=== PATIENT | female | born 1960 | race Two or more races ===

== ENCOUNTER → 2020-05-11 09:54 | Outpatient (BNVA) | payer OTHER, SELFPAY | PROVIDERS: PCP Internal Medicine; Visit Provider Physician Assistant | DX: M65.331 Trigger finger, right middle finger (principal) | CPT/HCPCS: 20550; 20600; 99213; J1020 ==

== ENCOUNTER 2020-05-24 16:02 | Outpatient (REF) | payer OTHER, SELFPAY | END 2020-05-24 16:03 | disposition home or self-care (01) | LOC: HO.LNP 16:02 | PROVIDERS: Visit Provider Nurse Practitioner Family | DX: M54.9 Dorsalgia, unspecified (principal) | CPT/HCPCS: 87086 ==

== ENCOUNTER → 2020-07-12 09:11 | Outpatient (BNVA) | payer OTHER, SELFPAY | PROVIDERS: PCP Internal Medicine; Referring Provider Internal Medicine; Visit Provider Nurse Practitioner Gerontology | DX: Z76.89 Persons encountering health services in other specified circumstances (principal) ==

== ENCOUNTER 2020-08-23 10:30 | Outpatient (REF) | payer OTHER, SELFPAY ==
--- NOTE | 2020-08-23 10:34 | MM_ITS ---
EXAMINATION: BONE DENSITOMETRY CLINICAL INDICATION: Asymptomatic menopausal state. COMPARISON: Previous BD dated 11/07/2017 and baseline BD dated 09/06/2011. TECHNIQUE: Using a [employer] DXA System (software version: 13.1) manufactured by [employer], dual-energy x-ray absorptiometry was performed of the lumbar spine and left hip. The images are of good technical quality. Summary results are attached. FINDINGS: AP SPINE L1-L4: Current: BMD 1.141 g/cm2, Z-score -0.2, T-score -0.3, normal, 1.5% increase from previous, 1.1% increase from baseline (<5% change is not significant). Prior: BMD 1.124 g/cm2. Baseline: BMD 1.129 g/cm2. LEFT FEMUR, NECK: Current: BMD 0.888 g/cm2, Z-score -0.5, T-score -1.1, osteopenia. Prior: BMD 0.980 g/cm2. Baseline: BMD 1.047 g/cm2. LEFT FEMUR, TOTAL: Current: BMD 1.148 g/cm2, Z-score 1.3, T-score 1.1, normal, 2.8% decrease from previous, 6.0% decrease from baseline (<5% change is not significant). Prior: BMD 1.181 g/cm2. Baseline: BMD 1.221 g/cm2. IDENTIFIED RISK FACTORS: Low calcium intake, hysterectomy, bilateral oophorectomy. Early menopause, secondary osteoporosis. HISTORY OF FRACTURE: None listed. MEDICATIONS: Calcium supplements or multivitamin, vitamin D. MM/XR DEXA axial skeleton IMPRESSION: 1. DIAGNOSIS: Osteopenia based on the lowest T-score value of -1.1 in the femoral neck applying World Health Organization criteria. 2. 10-YEAR FRACTURE RISK PREDICTION, FRAX: Major osteoporotic fracture (clinical spine, forearm, hip or shoulder) 3.5%. Hip fracture 0.2%. 3. Treatment Recommendations: NOF guidelines recommend consideration for treatment in postmenopausal women and men age 50 and older presenting with the following: -A hip or vertebral (clinical or morphometric) fracture. -T-score less than or equal to -2.5 at the femoral neck or spine after appropriate evaluation to exclude secondary causes. -Low bone mass at the hip or spine and a 10-year fracture probability by FRAX of greater than or equal to 3% for hip fracture or greater than or equal to 20% for major osteoporotic fracture based on the [place] adapted WHO algorithm. 4. Other Recommendations: All treatment decisions require clinical judgment and consideration of individual patient factors, including patient preferences, comorbidities, previous drug use, risk factors not captured in the FRAX model (e.g. frailty, falls, vitamin D deficiency, increased bone turnover, interval significant decline in bone density) and possible under or overestimation of fracture risk by FRAX. Additional medical evaluation for secondary cause of low bone mineral density may be appropriate. FUTURE SCAN RECOMMENDATION: People with diagnosed cases of osteoporosis or at high risk for fracture should have regular bone mineral density tests. For patients eligible for Medicare, routine testing is allowed once every 2 years. The testing frequency can be increased to one year for patients who have rapidly progressing disease, those who are receiving or discontinuing medical therapy to restore bone mass, or have additional risk factors.
== END 2020-08-23 10:31 | disposition home or self-care (01) ==
LOC: HO.MAMMO 10:30
PROVIDERS: Visit Provider Internal Medicine
DX: Z78.0 Asymptomatic menopausal state (principal)
CPT/HCPCS: 77080

== ENCOUNTER 2020-09-08 08:26 | Outpatient (REF) | payer OTHER, SELFPAY ==
--- NOTE | 2020-09-08 08:49 | XR_ITS ---
EXAMINATION: XR FOOT, LEFT CLINICAL INFORMATION: Pain in the left foot COMPARISON: None TECHNIQUE: AP, lateral, and oblique views of the left foot. FINDINGS: There is no fracture or dislocation. Alignment is anatomic. Joint spaces are maintained. The soft tissues are unremarkable. There is moderate hypertrophic spurring at the plantar aponeurosis of the calcaneus. Small Achilles heel spur. XR/XR foot LT min 3V IMPRESSION: Heel spurs. Otherwise unremarkable appearance of the left foot.
[2020-09-08 08:54] LABS: MANUAL DIFF FLAG NO
[2020-09-08 08:59] LABS: Basophils Percent Auto 0.3 % (0-2); Eosinophils Absolute Auto 0.1 X10*3/uL (0.0-0.4); Eosinophils Percent Auto 0.7 % (0-4); Hematocrit 42.1 % (37-47); Hemoglobin 13.8 g/dl (12.0-16.0); Imm Gran Abs Auto 0.02 X10*3/uL (0.00-0.03); Imm Gran Pct Auto 0.3 % (0.0-0.4); Lymphocytes Absolute Auto 3.2 X10*3/uL (1.2-4.9); Lymphocytes Percent Auto 45.9 % (20-40); Mean Corpuscular HGB Conc 32.8 g/dl (31.0-35.0); Mean Corpuscular Hemoglobin 29.5 pg (27.0-33.0); Mean Platelet Volume 9.2 fL (9.4-12.3); Monocytes Absolute Auto 0.4 X10*3/uL (0.1-1.2); Monocytes Percent Auto 5.8 % (2-11); Neutrophils Absolute Auto 3.2 X10*3/uL (2.0-8.3); Platelet Count 231 X10*3/uL (160-400); Red Blood Count 4.68 X10*6/uL (4.20-5.50); Red Cell Distribution Width 13.7 % (11.0-16.0); White Blood Count 6.9 X10*3/uL (4.8-10.8)
[2020-09-08 09:21] LABS: Alanine Aminotransferase 28 U/L (0-31); Albumin Level 4.4 g/dL (3.5-5.0); Alkaline Phosphatase 102 U/L (39-117); Anion Gap 13 (12-20); Aspartate Amino Transferase 30 U/L (5-31); Bilirubin Total 0.3 mg/dL (0.0-1.0); Blood Urea Nitrogen 16 mg/dL (9-16); Calcium 9.5 mg/dL (8.4-10.2); Carbon Dioxide 28 mmol/L (22-29); Chloride 101 mmol/L (96-108); Cholesterol 258 mg/dL; Estimated Glomerular Filt Rate > 60; Glucose Fasting 144 mg/dL (60-99); HDL Cholesterol 58 mg/dL; LDL Cholesterol Calculated 175 mg/dl; Potassium 4.2 mmol/L (3.3-5.1); Sodium 138 mmol/L (135-145); Triglycerides 127 mg/dL
[2020-09-08 09:43] LABS: TSH reflex Free T4 3.56 uIU/mL (0.32-4.0)
[2020-09-08 09:58] LABS: Folate 19.3 ng/mL (> or = 4.0); Vitamin B12 386 pg/mL (200-900)
[2020-09-13 18:57] LABS: Vitamin D 25-OH, D2 35 ng/mL; Vitamin D 25-OH, D3 7 ng/mL; Vitamin D 25-OH, Total 42 ng/mL (30-100)
== END 2020-09-08 08:27 | disposition home or self-care (01) ==
LOC: HO.LAB 08:26
PROVIDERS: PCP Internal Medicine; Visit Provider Internal Medicine
DX: E11.29 Type 2 diabetes mellitus with other diabetic kidney complication (principal); E78.5 Hyperlipidemia, unspecified; E03.9 Hypothyroidism, unspecified; R53.83 Other fatigue; E55.9 Vitamin D deficiency, unspecified; M79.672 Pain in left foot
CPT/HCPCS: 36415; 73630; 80053; 80061; 82306; 82607; 82746; 84443; 85025

== ENCOUNTER → 2020-10-10 13:49 | Outpatient (BNVA) | payer OTHER, SELFPAY | PROVIDERS: PCP Internal Medicine; Visit Provider Nurse Practitioner Gerontology | DX: E11.29 Type 2 diabetes mellitus with other diabetic kidney complication (principal); E66.01 Morbid (severe) obesity due to excess calories; Z68.38 Body mass index [BMI] 38.0-38.9, adult; E78.5 Hyperlipidemia, unspecified; E55.9 Vitamin D deficiency, unspecified; I10 Essential (primary) hypertension; R80.9 Proteinuria, unspecified; Z79.84 Long term (current) use of oral hypoglycemic drugs; Z71.3 Dietary counseling and surveillance | CPT/HCPCS: 82947; 99212 ==

== ENCOUNTER 2020-10-17 12:01 | Outpatient (REF) | payer OTHER, SELFPAY ==
--- NOTE | ~2020-10-17 | XR_ITS ---
EXAMINATION: BILATERAL FOOT X-RAY CLINICAL INFORMATION: Pain COMPARISON: Previous left foot x-ray September 2020 TECHNIQUE: 3 views of each foot FINDINGS: Bone alignment is normal. No fracture or dislocation is seen. The joint spaces are normal. There are large calcaneal osteophytes bilaterally. Soft tissues are otherwise unremarkable. XR/XR foot RT 2V IMPRESSION: Large bilateral calcaneal osteophytes otherwise unremarkable exam.
--- NOTE | ~2020-10-17 | XR_ITS ---
EXAMINATION: BILATERAL FOOT X-RAY CLINICAL INFORMATION: Pain COMPARISON: Previous left foot x-ray September 2020 TECHNIQUE: 3 views of each foot FINDINGS: Bone alignment is normal. No fracture or dislocation is seen. The joint spaces are normal. There are large calcaneal osteophytes bilaterally. Soft tissues are otherwise unremarkable. XR/XR foot LT 2V IMPRESSION: Large bilateral calcaneal osteophytes otherwise unremarkable exam.
== END 2020-10-17 12:02 | disposition home or self-care (01) ==
LOC: HO.XRAY 12:01
PROVIDERS: PCP Internal Medicine; Visit Provider Internal Medicine
DX: M79.672 Pain in left foot (principal); M79.671 Pain in right foot
CPT/HCPCS: 73620

== ENCOUNTER 2020-10-24 09:32 | Outpatient (REF) | payer OTHER, SELFPAY | END 2020-10-24 09:33 | disposition home or self-care (01) | LOC: HO.LAB 09:32 | PROVIDERS: Visit Provider Internal Medicine | DX: Z20.822 Contact with and (suspected) exposure to COVID-19 (principal) | CPT/HCPCS: 36415; C9803; U0003; U0005 ==

== ENCOUNTER 2020-10-26 10:59 | Outpatient (REF) | payer OTHER, SELFPAY | END 2020-10-26 11:00 | disposition home or self-care (01) | LOC: HO.LAB 10:59 | PROVIDERS: Visit Provider Internal Medicine | DX: Z20.822 Contact with and (suspected) exposure to COVID-19 (principal) | CPT/HCPCS: 36415; C9803; U0003; U0005 ==

== ENCOUNTER → 2020-10-27 09:28 | Outpatient (BNVA) | payer OTHER, SELFPAY | PROVIDERS: PCP Internal Medicine; Visit Provider Urology | DX: N20.0 Calculus of kidney (principal) | CPT/HCPCS: 81002; 99212 ==

== ENCOUNTER → 2020-11-09 12:45 | Outpatient (BNVA) | payer OTHER, SELFPAY | PROVIDERS: PCP Internal Medicine; Visit Provider Orthopaedic Surgery | DX: M65.331 Trigger finger, right middle finger (principal); M79.641 Pain in right hand | CPT/HCPCS: 99202 ==

== ENCOUNTER 2020-12-13 07:46 | Outpatient (REF) | payer OTHER, SELFPAY ==
--- NOTE | ~2020-12-13 | US_ITS ---
EXAMINATION: US ABDOMEN COMPLETE CLINICAL INFORMATION: Fatty liver. Liver fibrosis. COMPARISON: CT abdomen and pelvis 12/26/2019. Ultrasound abdomen 11/16/2019. Renal ultrasound 11/09/2019. KUB 09/01/2018. TECHNIQUE: Real-time imaging of the abdominal viscera. FINDINGS: PANCREAS: Normal. ABDOMINAL AORTA: The proximal, mid, and distal segments are normal in caliber. INFERIOR VENA CAVA: Visualized portions are normal. LIVER: The liver is normal in size. The liver contour is normal. There is increased liver echogenicity. No focal hepatic lesion. There is no intrahepatic biliary duct dilatation seen. GALLBLADDER: Surgically absent. COMMON BILE DUCT: Normal in caliber measuring 1.0 cm in diameter. RIGHT KIDNEY: There are multiple anechoic cysts seen. The largest upper pole cyst measures 3.7 x 3.7 x 3.8 cm. Some of the cysts have echogenic calcifications and are likely complex cyst. There is an echogenic stone with shadowing in the midpole measuring 1.1 x 0.7 x 1.1 cm. No hydronephrosis. The kidney measures 12.2 cm in maximum dimension. LEFT KIDNEY: There is a large calcification/stone in upper pole measuring 2.6 x 1.7 x 2.2 cm and midpole measuring 1.1 x 0.7 x 1.1 cm. No hydronephrosis. The kidney measures 12.8 cm in maximum dimension. SPLEEN: Normal. The spleen measures 10.2 cm in maximum dimension. FREE FLUID: None. US/US abdomen complete IMPRESSION: Bilateral echogenic stones without hydronephrosis. There are bilateral renal cysts. No hydronephrosis seen. Hepatic steatosis without focal lesion.
[2020-12-13 09:12] LABS: MANUAL DIFF FLAG NO
[2020-12-13 09:19] LABS: Basophils Percent Auto 0.3 % (0-2); Eosinophils Percent Auto 0.6 % (0-4); Hematocrit 41.7 % (37-47); Hemoglobin 13.5 g/dl (12.0-16.0); Imm Gran Abs Auto 0.02 X10*3/uL (0.00-0.03); Imm Gran Pct Auto 0.3 % (0.0-0.4); Lymphocytes Absolute Auto 2.9 X10*3/uL (1.2-4.9); Lymphocytes Percent Auto 42.1 % (20-40); Mean Corpuscular HGB Conc 32.4 g/dl (31.0-35.0); Mean Corpuscular Hemoglobin 29.1 pg (27.0-33.0); Mean Corpuscular Volume 89.9 fL (80-98); Mean Platelet Volume 9.8 fL (9.4-12.3); Monocytes Absolute Auto 0.4 X10*3/uL (0.1-1.2); Neutrophils Absolute Auto 3.4 X10*3/uL (2.0-8.3); Neutrophils Percent Auto 50.7 % (45-73); Platelet Count 223 X10*3/uL (160-400); Red Blood Count 4.64 X10*6/uL (4.20-5.50); Red Cell Distribution Width 13.7 % (11.0-16.0); White Blood Count 6.8 X10*3/uL (4.8-10.8)
[2020-12-13 09:26] LABS: Estimated Average Glucose 183 mg/dL
[2020-12-13 09:36] LABS: Alanine Aminotransferase 23 U/L (0-31); Albumin Level 4.3 g/dL (3.5-5.0); Alkaline Phosphatase 102 U/L (39-117); Anion Gap 13 (12-20); Aspartate Amino Transferase 22 U/L (5-31); Bilirubin Total 0.4 mg/dL (0.0-1.0); Blood Urea Nitrogen 14 mg/dL (9-16); Calcium 10.1 mg/dL (8.4-10.2); Carbon Dioxide 29 mmol/L (22-29); Chloride 100 mmol/L (96-108); Cholesterol 199 mg/dL; Estimated Glomerular Filt Rate > 60; Glucose Fasting 160 mg/dL (60-99); HDL Cholesterol 61 mg/dL; Iron 58 mcg/dL (30-160); LDL Cholesterol Calculated 122 mg/dl; Percent Iron Saturation 14 % (15-50); Sodium 138 mmol/L (135-145); Total Iron Binding Capacity 406 mcg/dL (228-428); Total Protein 7.5 g/dL (6.5-8.0); Triglycerides 80 mg/dL; Unsaturated Iron Binding 348 ug/dL
[2020-12-13 10:12] LABS: Vitamin B12 423 pg/mL (200-900)
== END 2020-12-13 07:47 | disposition home or self-care (01) ==
LOC: HO.US 07:46
PROVIDERS: Nurse Practitioner Gerontology; Absent Provider Internal Medicine; PCP Internal Medicine; Visit Provider Internal Medicine
DX: K76.0 Fatty (change of) liver, not elsewhere classified (principal); K74.00 Hepatic fibrosis, unspecified; E78.5 Hyperlipidemia, unspecified; E11.29 Type 2 diabetes mellitus with other diabetic kidney complication; D50.9 Iron deficiency anemia, unspecified
CPT/HCPCS: 36415; 76700; 80053; 80061; 82607; 82746; 83036; 83540; 85025

== ENCOUNTER → 2020-12-27 09:34 | Outpatient (BNVA) | payer OTHER, SELFPAY | PROVIDERS: PCP Internal Medicine; Referring Provider Internal Medicine; Visit Provider Surgery | DX: L72.0 Epidermal cyst (principal) | CPT/HCPCS: 99212 ==

== ENCOUNTER → 2021-01-11 09:31 | Outpatient (BNVA) | payer OTHER, SELFPAY | PROVIDERS: PCP Internal Medicine; Visit Provider Nurse Practitioner Gerontology | DX: E11.65 Type 2 diabetes mellitus with hyperglycemia (principal); E11.29 Type 2 diabetes mellitus with other diabetic kidney complication; E78.5 Hyperlipidemia, unspecified; E66.01 Morbid (severe) obesity due to excess calories; E55.9 Vitamin D deficiency, unspecified; R80.9 Proteinuria, unspecified; I10 Essential (primary) hypertension; Z68.38 Body mass index [BMI] 38.0-38.9, adult | CPT/HCPCS: 82947; 99212 ==

== ENCOUNTER 2021-03-29 08:11 | Outpatient (REF) | payer OTHER, SELFPAY | END 2021-03-29 08:12 | disposition home or self-care (01) | LOC: HO.LAB 08:11 | PROVIDERS: PCP Internal Medicine; Visit Provider Internal Medicine | DX: Z20.822 Contact with and (suspected) exposure to COVID-19 (principal) | CPT/HCPCS: 36415; 87635; C9803; U0003; U0005 ==

== ENCOUNTER 2021-03-31 08:23 | Outpatient (REF) | payer OTHER, SELFPAY ==
--- NOTE | ~2021-03-31 | MM_ITS ---
EXAMINATION: MM SCREENING DIGITAL BREAST TOMOSYNTHESIS, BILATERAL CLINICAL INFORMATION: Screening. Asymptomatic. The lifetime risk of breast cancer based on the Tyrer-Cuzick Model is 6%. COMPARISON: Mammography: 08/17/2019, 08/15/2018, 07/27/2017 TECHNIQUE: Digital breast tomosynthesis is performed in both the craniocaudal and mediolateral oblique views along with computer-aided detection (CAD). Synthesized 2D images are generated from the tomosynthesis. Additional left MLO view is provided. FINDINGS: There are scattered areas of fibroglandular density (ACR BI-RADS breast composition Category b). Parenchymal pattern is similar to prior studies. There is no developing density or interval mass or architectural abnormality. The axilla and skin contours are unremarkable. There are scattered benign coarse calcifications again seen in each breast as well as some vascular calcification. The left breast has increased grouped relatively coarse calcifications 6-10 in number posterior 9:00 position. Patient will be recalled for additional imaging with magnification views. MM/MM tomosynthesis screening BI IMPRESSION: 1. Left: Increased grouped relatively coarse calcifications posterior 9:00 position. 2. Right: No mammographic evidence of malignancy. ASSESSMENT: BI-RADS 0: Incomplete - Need Additional Imaging Evaluation RECOMMENDATION: 1. Additional views of the left breast (magnification CC, magnification LM). 2. Radiology department staff will contact the patient for additional imaging. This patient's information was entered into a reminder system with a target due date for their next mammogram.
== END 2021-03-31 08:24 | disposition home or self-care (01) ==
LOC: HO.MAMMO 08:23
PROVIDERS: PCP Internal Medicine; Visit Provider Internal Medicine
DX: Z12.31 Encounter for screening mammogram for malignant neoplasm of breast (principal)
CPT/HCPCS: 77063; 77067

== ENCOUNTER 2021-04-17 10:43 | Outpatient (REF) | payer OTHER, SELFPAY ==
--- NOTE | ~2021-04-17 | US_ITS ---
EXAMINATION: US RETROPERITONEAL LIMITED (RENAL ONLY) CLINICAL INFORMATION: Renal calculus. COMPARISON: Ultrasound abdomen complete dated 12/13/2020 and 11/16/2019. CT abdomen and pelvis without contrast dated 12/26/2019. KUB dated 09/01/2018 and 06/11/2007. TECHNIQUE: Real-time imaging of the kidneys. FINDINGS: RIGHT KIDNEY: 12.5 x 6.5 x 7.3 cm (SAG x AP x TRV). The kidney is normal in size and contour. There are echogenic renal pyramids suggestive of medullary nephrocalcinosis. There are multiple right renal stones. The largest measures 1.2 cm in the midpole. There are multiple right renal cysts. The largest measures 3 cm in the upper pole. No hydronephrosis. LEFT KIDNEY: 12.1 x 6.7 x 5.9 cm (SAG x AP x TRV). The kidney is normal in size and contour. There are echogenic renal pyramids suggestive of medullary nephrocalcinosis. There are multiple left renal stones. The largest measures 2.5 cm in the upper pole. There are multiple left renal cysts. The largest measures 8 cm in the lower pole. No hydronephrosis. US/US renal BI IMPRESSION: Medullary nephrocalcinosis and bilateral renal stones. Bilateral renal cysts.
--- NOTE | ~2021-04-17 | MM_ITS ---
EXAMINATION: MM DIAGNOSTIC DIGITAL MAMMOGRAPHY, LEFT CLINICAL INFORMATION: Recall from screening for increased grouped relatively coarse calcifications 9:00 position left breast. COMPARISON: Mammography: 03/31/2021, 08/17/2019, 08/15/2018 TECHNIQUE: Digital mammography is performed in the following views: Magnification CC, magnification LM. FINDINGS: There are scattered areas of fibroglandular density (ACR BI-RADS breast composition Category b). The increased grouped calcifications 9:00 position are coarse and benign, likely fibroadenomatous change. They are likely similar to the degenerating fibroadenoma more central left breast. No pleomorphic or suspicious calcifications. There are some other fine grouped calcifications lower inner left breast similar to prior imaging. No significant changes. Results are discussed with the patient at time of visit, using an feather separator. MM/MM added views LT IMPRESSION: The calcifications for follow-up imaging are coarse and benign in appearance, likely fibroadenomatous change. ASSESSMENT: BI-RADS 2: Benign RECOMMENDATION: Routine annual mammography screening. This patient's information was entered into a reminder system with a target due date for their next mammogram.
== END 2021-04-17 10:44 | disposition home or self-care (01) ==
LOC: HO.MAMMO 10:43
PROVIDERS: PCP Internal Medicine; Visit Provider Internal Medicine
DX: R92.1 Mammographic calcification found on diagnostic imaging of breast (principal)
CPT/HCPCS: 76775; 77065

== ENCOUNTER → 2021-05-01 11:10 | Outpatient (BNVA) | payer OTHER, SELFPAY | PROVIDERS: PCP Internal Medicine | DX: N20.0 Calculus of kidney (principal); N28.1 Cyst of kidney, acquired | CPT/HCPCS: 99212 ==

== ENCOUNTER 2021-06-05 09:54 | Outpatient (REF) | payer OTHER, SELFPAY ==
[2021-06-05 10:22] LABS: MANUAL DIFF FLAG NO
[2021-06-05 10:48] LABS: Basophils Percent Auto 0.3 % (0-2); Eosinophils Percent Auto 0.6 % (0-4); Hematocrit 40.9 % (37.0-47.0); Hemoglobin 13.3 g/dl (12.0-16.0); Imm Gran Abs Auto 0.02 X10*3/uL (0.00-0.03); Imm Gran Pct Auto 0.3 % (0.0-0.4); Lymphocytes Percent Auto 44.8 % (20-40); Mean Corpuscular HGB Conc 32.5 g/dl (31.0-35.0); Mean Corpuscular Hemoglobin 28.5 pg (27.0-33.0); Mean Corpuscular Volume 87.6 fL (80.0-98.0); Mean Platelet Volume 9.6 fL (9.4-12.3); Monocytes Absolute Auto 0.4 X10*3/uL (0.1-1.2); Monocytes Percent Auto 5.8 % (2-11); Neutrophils Absolute Auto 3.18 x10*3/uL (2.0-8.3); Neutrophils Percent Auto 48.2 % (45-73); Platelet Count 212 X10*3/uL (160-400); Red Blood Count 4.67 X10*6/uL (4.20-5.50); Red Cell Distribution Width 13.5 % (11.0-16.0); White Blood Count 6.6 X10*3/uL (4.8-10.8)
[2021-06-05 10:59] LABS: Estimated Average Glucose 177 mg/dL; Hemoglobin A1c % 7.8 %
[2021-06-05 11:20] LABS: Anion Gap 12 (12-20); Blood Urea Nitrogen 12 mg/dL (9-16); Calcium 9.5 mg/dL (8.4-10.2); Carbon Dioxide 27 mmol/L (22-29); Chloride 104 mmol/L (96-108); Estimated Glomerular Filt Rate > 60; Iron 68 mcg/dL (30-160); Percent Iron Saturation 16 % (15-50); Potassium 4.3 mmol/L (3.3-5.1); Sodium 139 mmol/L (135-145); Total Iron Binding Capacity 419 mcg/dL (228-428); Unsaturated Iron Binding 351 ug/dL
[2021-06-05 11:42] LABS: Ferritin 90 ng/mL (10-250); Vitamin D 25-OH Total 30.2 ng/mL (>30)
[2021-06-05 12:08] LABS: Appearance Urine HAZY; Color Urine YELLOW; Glucose Urine UA NEG (NEG); Leukocyte Esterase Urine 1+ (NEG); Nitrite Urine NEG (NEG); Urine Blood TRACE (NEG); Urine Ketones NEG (NEG); Urine Protein 2+ MG/DL (NEG-TRACE)
[2021-06-05 12:22] LABS: Mucus Urine 1+ /LPF; Squamous Epithelial Cell Urine 1+ /LPF
[2021-06-05 12:23] LABS: Bacteria Urine TRACE /LPF; Calcium Oxalate Crystals Urine 1+ /LPF
[2021-06-05 16:02] LABS: Protein/Creatinine Ratio, Ur 0.48 (<0.2); Total Protein Urine Random 66 mg/dL (<12)
[2021-06-07 12:11] LABS: Calcium (PTHI) 9.4 mg/dL (8.6-10.4); PTHI 54 pg/mL (14-64)
== END 2021-06-05 09:55 | disposition home or self-care (01) ==
LOC: HO.LAB 09:54
PROVIDERS: PCP Internal Medicine; Visit Provider Internal Medicine Nephrology
DX: E11.22 Type 2 diabetes mellitus with diabetic chronic kidney disease (principal); N18.2 Chronic kidney disease, stage 2 (mild)
CPT/HCPCS: 36415; 80051; 81001; 82306; 82310; 82565; 82728; 83036; 83540; 83970; 84156; 84520; 85025

== ENCOUNTER 2021-06-28 11:00 | Outpatient (RCR) | payer OTHER, SELFPAY ==
--- NOTE | 2021-06-02 13:14 | MHC.PT.EP ---
[facility] [place] Office [place] Office [place] Office [address] Fanny Mcfadden [address] [phone] F: [phone] F: [phone] F: [phone] F: [phone] Physical Therapy Plan of Care Date of Evaluation: Date of Surgery: N/A Diagnosis: myalgia Assessment: pt's signs and symptoms consistent w/ lumbar radiculopathy. pt presents to physical therapy with pain, decreased range of motion, decreased strength, impaired functional mobility, impaired postural awareness, and gait deviations. pt is a good candidate for skilled PT due to age, potential remediation of impairments, typical disease/condition progression and prognosis, comorbidities, and motivation. pt would benefit from tailored strengthening and stretching exercise program, functional training, gait training, postural re-training, neuromuscular re-education, modalities as needed for pain, equipment safety demonstration. Frequency and Duration: The patient will be seen 2x/wk for 4 wks Short Term Goals: pt will be I w/ HEP to promote self-management of condition. pt will demo proper sitting posture w/ lumbar roll to promote neutral spine w/ seated ADLs. pt will improve lumbar flexion by 25% to improve ability to pickling solution maker objects from floor. Engineer Intern Goals: pt will report a statistically significant improvement in self-reported outcome measure, LEFI, to promote return to PLOF. pt will improve L LE hip flexion and knee extension strength to 5/5 to improve ease in ascending stairs to access bedroom/bathroom. pt will report <2/10 low back and radicular symptoms w/ standing for >20 minutes to promote pain-limited pain w/ standing ADLs. Treatment Plan: Modalities to reduce pain, spasms and effusion. Manual therapy to restore motion and function. Therapeutic exercise to improve strength and flexibility. Neuromuscular re-education for posture and balance. Therapeutic activities to return to functional activities of daily living. Electronically signed by: Stacie Flores PT, DPT Please sign and return to therapist. Thank you for your referral.
--- NOTE | 2021-07-21 12:24 | MHC.PT.DC ---
[facility] [place] Office [place] Office [place] Office [address] Fanny Mcfadden 140 [facility] [phone] F: [phone] F: [phone] F: [phone] F: [phone] Physical Therapy Discharge Report Diagnosis: myalgia Date of Surgery: N/A Date of Evaluation: 06/02/21 Date of Discharge: 07/21/21 Treatments to Date: 7 Cancellations to Date: 1 No Shows to Date: 1 Discharge Status: Independent with HEP Recommend MD Follow-up Discharge Summary: The patient had minimal change in her symptoms and postural awareness. She continues to report moderate to severe pain levels in multiple joints of her body. She would benefit from a follow-up with her primary care provider to determine alternative options for pain management. The patient is discharged from this physical therapy plan of care to her home exercise program. Electronically signed by: Stacie Flores PT, DPT Please sign and return to therapist. Thank you for your referral.
== END 2021-07-21 12:24 | disposition home or self-care (01) ==
LOC: HO.PT 11:00
PROVIDERS: PCP Nurse Practitioner Family; Visit Provider Nurse Practitioner Family
DX: M79.18 Myalgia, other site (principal)
CPT/HCPCS: 97110; 97112; 97140; 97150; 97162

== ENCOUNTER 2021-07-25 13:10 | Outpatient (REF) | payer OTHER, SELFPAY ==
--- NOTE | ~2021-07-25 | CT_ITS ---
EXAMINATION: CT ABDOMEN AND PELVIS WITHOUT CONTRAST CLINICAL INFORMATION: Kidney stones COMPARISON: Previous CT of the abdomen and pelvis most recent December 2019 and renal ultrasound most recent April 2021 TECHNIQUE: Multidetector volumetric imaging was performed from the superior aspect of the liver through the pubic symphysis. Sagittal and coronal reformatted images were obtained on the technologist's workstation. This CT examination was performed using dose optimization techniques as appropriate, variously including the following: *Automated exposure control *Adjustment of mA and/or kV according to patient size (this includes techniques or standardized protocols for targeted exams where dose is matched to indication/reason for exam; i.e. extremities or head) *Use of iterative reconstruction technique DLP: 756 mGy-cm FINDINGS: LUNG BASES: The visualized lung bases are unremarkable. LIVER, GALLBLADDER, AND BILIARY TREE: The liver is normal in size, shape, and attenuation. No focal hepatic lesion or biliary ductal dilatation is present. The gallbladder has been removed. PANCREAS: Unremarkable. SPLEEN: Unremarkable. ADRENAL GLANDS: Unremarkable. KIDNEYS AND URETERS: There is high attenuation seen centrally in the collecting systems questionable for medullary nephrocalcinosis. There are several tiny right renal stones. There is a 2.5 cm cyst in the upper pole of the right kidney. There may be smaller right renal peripelvic cysts. No right hydronephrosis, ureteral dilatation or ureteral stone is seen. There is a stone in the left upper pole calyx. There is an adjacent cystic structure with peripheral calcification. This measures approximately 1.6 x 2 cm. Appearance is questionable for a cyst with wall calcification versus calyceal diverticulum. This is stable from previous exams. There are 2 small 1 to 2 mm left mid and lower pole stones. There are several left renal cysts. Largest cyst measures 7 cm and has area of wall calcification. No left hydronephrosis, ureteral dilatation or ureteral stone is seen. BLADDER: Not optimally distended but appears unremarkable. GASTROINTESTINAL TRACT: There is diverticulosis of the colon. Small and large bowel is otherwise unremarkable. ABDOMINAL WALL: No significant hernia is appreciated. LYMPH NODES: Normal. VASCULAR: Unremarkable. PELVIC VISCERA: The uterus has been removed. No pelvic mass is seen. OSSEOUS STRUCTURES: Unremarkable. CT/CT abdomen pelvis wo con IMPRESSION: Medullary nephrocalcinosis. Bilateral renal stones. Bilateral renal cysts. There is no appreciable change from most recent CT December 2019. Fleischner guidelines were followed.
== END 2021-07-25 13:11 | disposition home or self-care (01) ==
LOC: HO.CT 13:10
PROVIDERS: PCP Internal Medicine; Visit Provider Urology
DX: N20.0 Calculus of kidney (principal); N28.1 Cyst of kidney, acquired
CPT/HCPCS: 74176

== ENCOUNTER → 2021-08-01 11:02 | Outpatient (BNVA) | payer OTHER, SELFPAY | PROVIDERS: PCP Internal Medicine | DX: N20.0 Calculus of kidney (principal) | CPT/HCPCS: 99212 ==

== ENCOUNTER 2021-08-11 08:06 | Outpatient (REF) | payer OTHER, SELFPAY ==
--- NOTE | ~2021-08-11 | XR_ITS ---
EXAMINATION: RIGHT FOOT CLINICAL INFORMATION: Pain COMPARISON: None TECHNIQUE: 3 views right foot, 3 views right hand and 3 views left shoulder, right hand and left shoulder FINDINGS: Right foot: There is no visible fracture, dislocation or dislocation. No periosteal thickening no soft tissue abnormality seen. There is a moderate size calcaneal heel and retrocalcaneal enthesophytes. Ankle mortise and subtalar joints are normal. Right hand: There is no visible fracture, dislocation or bony in the body. Especially no abnormality seen along the phalangeal charley. There is mild loss of PIP and DIP joint space with no periarticular spurring or bony erosive changes. Left shoulder: There is no visible acute fracture, dislocation or subluxation seen. The glenohumeral joint space is normal. The soft tissues are normal. XR/XR shoulder LT min 2V IMPRESSION: Unremarkable left shoulder exam. Unremarkable right hand exam. Unremarkable right foot exam except for moderate size calcaneal heel and retrocalcaneal enthesophytes.
--- NOTE | ~2021-08-11 | XR_ITS ---
EXAMINATION: RIGHT FOOT CLINICAL INFORMATION: Pain COMPARISON: None TECHNIQUE: 3 views right foot, 3 views right hand and 3 views left shoulder, right hand and left shoulder FINDINGS: Right foot: There is no visible fracture, dislocation or dislocation. No periosteal thickening no soft tissue abnormality seen. There is a moderate size calcaneal heel and retrocalcaneal enthesophytes. Ankle mortise and subtalar joints are normal. Right hand: There is no visible fracture, dislocation or bony in the body. Especially no abnormality seen along the phalangeal charley. There is mild loss of PIP and DIP joint space with no periarticular spurring or bony erosive changes. Left shoulder: There is no visible acute fracture, dislocation or subluxation seen. The glenohumeral joint space is normal. The soft tissues are normal. XR/XR hand RT 2V IMPRESSION: Unremarkable left shoulder exam. Unremarkable right hand exam. Unremarkable right foot exam except for moderate size calcaneal heel and retrocalcaneal enthesophytes.
--- NOTE | ~2021-08-11 | XR_ITS ---
EXAMINATION: RIGHT FOOT CLINICAL INFORMATION: Pain COMPARISON: None TECHNIQUE: 3 views right foot, 3 views right hand and 3 views left shoulder, right hand and left shoulder FINDINGS: Right foot: There is no visible fracture, dislocation or dislocation. No periosteal thickening no soft tissue abnormality seen. There is a moderate size calcaneal heel and retrocalcaneal enthesophytes. Ankle mortise and subtalar joints are normal. Right hand: There is no visible fracture, dislocation or bony in the body. Especially no abnormality seen along the phalangeal charley. There is mild loss of PIP and DIP joint space with no periarticular spurring or bony erosive changes. Left shoulder: There is no visible acute fracture, dislocation or subluxation seen. The glenohumeral joint space is normal. The soft tissues are normal. XR/XR foot RT 2V IMPRESSION: Unremarkable left shoulder exam. Unremarkable right hand exam. Unremarkable right foot exam except for moderate size calcaneal heel and retrocalcaneal enthesophytes.
[2021-08-11 08:17] LABS: MANUAL DIFF FLAG NO
[2021-08-11 08:57] LABS: Basophils Percent Auto 0.4 % (0-2); Eosinophils Absolute Auto 0.1 X10*3/uL (0.0-0.4); Eosinophils Percent Auto 0.8 % (0-4); Hematocrit 40.9 % (37.0-47.0); Hemoglobin 13.6 g/dl (12.0-16.0); Imm Gran Abs Auto 0.02 X10*3/uL (0.00-0.03); Imm Gran Pct Auto 0.3 % (0.0-0.4); Lymphocytes Absolute Auto 2.7 X10*3/uL (1.2-4.9); Lymphocytes Percent Auto 38.3 % (20-40); Mean Corpuscular HGB Conc 33.3 g/dl (31.0-35.0); Mean Corpuscular Hemoglobin 29.3 pg (27.0-33.0); Mean Corpuscular Volume 88.1 fL (80.0-98.0); Mean Platelet Volume 9.8 fL (9.4-12.3); Monocytes Absolute Auto 0.4 X10*3/uL (0.1-1.2); Monocytes Percent Auto 5.5 % (2-11); Neutrophils Absolute Auto 3.9 x10*3/uL (2.0-8.3); Neutrophils Percent Auto 54.7 % (45-73); Platelet Count 225 X10*3/uL (160-400); Red Blood Count 4.64 X10*6/uL (4.20-5.50); Red Cell Distribution Width 14.2 % (11.0-16.0); White Blood Count 7.1 X10*3/uL (4.8-10.8)
[2021-08-11 09:11] LABS: Alanine Aminotransferase 50 U/L (0-31); Albumin Level 4.4 g/dL (3.5-5.0); Alkaline Phosphatase 95 U/L (39-117); Anion Gap 13 (12-20); Aspartate Amino Transferase 53 U/L (5-31); Bilirubin Total 0.3 mg/dL (0.0-1.0); Blood Urea Nitrogen 13 mg/dL (9-16); Calcium 9.9 mg/dL (8.4-10.2); Carbon Dioxide 29 mmol/L (22-29); Chloride 101 mmol/L (96-108); Cholesterol 218 mg/dL; Estimated Glomerular Filt Rate > 60; Glucose Fasting 169 mg/dL (60-99); HDL Cholesterol 50 mg/dL; Iron 51 mcg/dL (30-160); LDL Cholesterol Calculated 137 mg/dl; Percent Iron Saturation 13 % (15-50); Sodium 139 mmol/L (135-145); Total Iron Binding Capacity 397 mcg/dL (228-428); Total Protein 7.6 g/dL (6.5-8.0); Triglycerides 158 mg/dL; Unsaturated Iron Binding 346 ug/dL
[2021-08-11 11:14] LABS: Creatinine Urine 213.31 mg/dL
[2021-08-11 11:26] LABS: Microalbum/Creatinine Ratio Ur 267.2 ug/mg cr
[2021-08-16 13:01] LABS: Vitamin D 25-OH, D2 12 ng/mL; Vitamin D 25-OH, D3 20 ng/mL; Vitamin D 25-OH, Total 32 ng/mL (30-100)
== END 2021-08-11 08:07 | disposition home or self-care (01) ==
LOC: HO.LAB 08:06
PROVIDERS: PCP Internal Medicine; Visit Provider Internal Medicine
DX: D50.9 Iron deficiency anemia, unspecified (principal); E78.5 Hyperlipidemia, unspecified; E11.65 Type 2 diabetes mellitus with hyperglycemia; E55.9 Vitamin D deficiency, unspecified; M79.671 Pain in right foot; M79.641 Pain in right hand; M25.512 Pain in left shoulder
CPT/HCPCS: 36415; 73030; 73120; 73620; 80053; 80061; 82043; 82306; 83540; 85025

== ENCOUNTER → 2021-08-15 11:07 | Outpatient (BNVA) | payer OTHER, SELFPAY | PROVIDERS: PCP Internal Medicine; Visit Provider Nurse Practitioner Gerontology ==

== ENCOUNTER → 2021-09-26 10:40 | Outpatient (BNVA) | payer OTHER, SELFPAY | PROVIDERS: PCP Internal Medicine; Visit Provider Physician Assistant | DX: M79.641 Pain in right hand (principal) | CPT/HCPCS: 99212 ==

== ENCOUNTER 2021-11-01 08:49 | Outpatient (REF) | payer OTHER, SELFPAY ==
--- NOTE | ~2021-11-01 | XR_ITS ---
EXAMINATION: XR FOOT, RIGHT CLINICAL INFORMATION: Pain in right foot COMPARISON: None TECHNIQUE: AP, lateral, and oblique views of the right foot. FINDINGS: There is a moderate size calcaneal heel and retrocalcaneal enthesophytes. There is no fracture or dislocation or subluxation involving the second digit. There is mild soft tissue swelling along the plantar surface. The PIP and DIP joints are normal. Rest of the right foot is unremarkable. XR/XR foot RT 2V IMPRESSION: Unremarkable right second digit. Moderate size calcaneal heel and retrocalcaneal enthesophytes.
== END 2021-11-01 08:50 | disposition home or self-care (01) ==
LOC: HO.XRAY 08:49
PROVIDERS: PCP Internal Medicine; Visit Provider Nurse Practitioner Family
DX: M79.671 Pain in right foot (principal); M65.331 Trigger finger, right middle finger; M25.50 Pain in unspecified joint; Z79.899 Other long term (current) drug therapy
CPT/HCPCS: 73620; 99212

== ENCOUNTER 2021-11-02 09:26 | Outpatient (REF) | payer OTHER, SELFPAY ==
[2021-11-02 10:48] LABS: MANUAL DIFF FLAG NO
[2021-11-02 11:35] LABS: Basophils Percent Auto 0.3 % (0-2); Eosinophils Percent Auto 0.6 % (0-4); Hematocrit 42.5 % (37.0-47.0); Hemoglobin 13.8 g/dl (12.0-16.0); Imm Gran Abs Auto 0.01 X10*3/uL (0.00-0.03); Imm Gran Pct Auto 0.2 % (0.0-0.4); Lymphocytes Absolute Auto 2.6 X10*3/uL (1.2-4.9); Lymphocytes Percent Auto 39.1 % (20-40); Mean Corpuscular HGB Conc 32.5 g/dl (31.0-35.0); Mean Corpuscular Hemoglobin 28.6 pg (27.0-33.0); Mean Corpuscular Volume 88.2 fL (80.0-98.0); Monocytes Absolute Auto 0.4 X10*3/uL (0.1-1.2); Monocytes Percent Auto 5.4 % (2-11); Neutrophils Absolute Auto 3.6 x10*3/uL (2.0-8.3); Neutrophils Percent Auto 54.4 % (45-73); Platelet Count 230 X10*3/uL (160-400); Red Blood Count 4.82 X10*6/uL (4.20-5.50); Red Cell Distribution Width 13.6 % (11.0-16.0); White Blood Count 6.5 X10*3/uL (4.8-10.8)
[2021-11-02 11:47] LABS: Alanine Aminotransferase 43 U/L (0-31); Albumin Level 4.6 g/dL (3.5-5.0); Alkaline Phosphatase 93 U/L (39-117); Anion Gap 14 (12-20); Aspartate Amino Transferase 42 U/L (5-31); Bilirubin Total 0.3 mg/dL (0.0-1.0); Blood Urea Nitrogen 14 mg/dL (9-16); Carbon Dioxide 25 mmol/L (22-29); Chloride 103 mmol/L (96-108); Cholesterol 189 mg/dL; Estimated Glomerular Filt Rate > 60; Glucose Random 155 mg/dL (60-115); HDL Cholesterol 51 mg/dL; Iron 48 mcg/dL (30-160); LDL Cholesterol Calculated 115 mg/dl; Percent Iron Saturation 11 % (15-50); Potassium 4.4 mmol/L (3.3-5.1); Sodium 138 mmol/L (135-145); Total Iron Binding Capacity 423 mcg/dL (228-428); Total Protein 8.1 g/dL (6.5-8.0); Triglycerides 119 mg/dL; Unsaturated Iron Binding 375 ug/dL
[2021-11-02 11:55] LABS: HBc Num1 0.22 S/CO (0.00-0.79); HBsAGNum1 0.18 S/CO (0.00-0.99); Hepatitis B Core Antibody Nonreactive (Nonreactive); Hepatitis B Surface Antigen Negative (Negative)
[2021-11-02 12:08] LABS: HBS Num1 1.46 mIU/mL (0-7.99); ~Hepatitis B Surface Antibody NONREACTIVE (Nonreactive); ~Hepatitis C Antibody Nonreactive (Nonreactive)
[2021-11-02 12:41] LABS: Creatinine Urine 159.67 mg/dL; Microalbum/Creatinine Ratio Ur 256.1 ug/mg cr
[2021-11-03 08:30] LABS: Hepatitis A Antibody IgM 0.69 Index (0-0.79); ~Hepatitis A Antibody IgM Nonreactive (Nonreactive)
[2021-11-07 14:01] LABS: Vitamin D 25-OH, D2 17 ng/mL; Vitamin D 25-OH, D3 19 ng/mL; Vitamin D 25-OH, Total 36 ng/mL (30-100)
== END 2021-11-02 09:27 | disposition home or self-care (01) ==
LOC: HO.LAB 09:26
PROVIDERS: Absent Provider Internal Medicine; PCP Internal Medicine; Visit Provider Nurse Practitioner Family
DX: E78.5 Hyperlipidemia, unspecified (principal); E55.9 Vitamin D deficiency, unspecified; D64.9 Anemia, unspecified; E11.9 Type 2 diabetes mellitus without complications; M25.50 Pain in unspecified joint
CPT/HCPCS: 36415; 80053; 80061; 82043; 82306; 83540; 85025; 86704; 86706; 86709; 86803; 87340

== ENCOUNTER 2021-11-02 10:00 | Outpatient (RCR) | payer OTHER, SELFPAY ==
--- NOTE | 2021-11-30 16:53 | MHC.OT.DC ---
[address] [phone] F: [phone] Occupational Therapy Discharge Note Provider: Vidal Chavez Diagnosis: Right hand pain Date of Surgery: Date of Evaluation: 10/05/21 Date of Discharge: 11/30/21 Treatments to Date: 8 Cancellations to Date: 1 No Shows to Date: Discharge Status: Recommend MD Follow-up Discharge Summary: Improvement in dorsal MF MP and PIPj pain,, Con't pain at area of A1 tray, reports some improvement after treatment today No digit locking Continue c/o numbness at MF and RF Electronically Signed By: Amber Grossman OT CHT CLT Reviewed/agree with student documentation: N/A Therapist: Please Sign and return to therapist, thank you for your referral.
== END 2021-11-30 16:54 | disposition home or self-care (01) ==
LOC: HO.OT 10:00
PROVIDERS: PCP Internal Medicine; Visit Provider Physician Assistant
DX: M79.641 Pain in right hand (principal)
CPT/HCPCS: 29130; 97035; 97110; 97166; 97760

== ENCOUNTER → 2021-11-09 08:46 | Outpatient (BNVA) | payer OTHER, SELFPAY | PROVIDERS: PCP Internal Medicine; Visit Provider Internal Medicine Rheumatology | DX: M65.331 Trigger finger, right middle finger (principal) | CPT/HCPCS: 20550 ×2 ==

== ENCOUNTER → 2021-11-15 11:08 | Outpatient (BNVA) | payer OTHER, SELFPAY | PROVIDERS: PCP Internal Medicine; Visit Provider Nurse Practitioner Gerontology | DX: E11.65 Type 2 diabetes mellitus with hyperglycemia (principal); E11.29 Type 2 diabetes mellitus with other diabetic kidney complication; R80.9 Proteinuria, unspecified; I10 Essential (primary) hypertension; E78.5 Hyperlipidemia, unspecified; E66.01 Morbid (severe) obesity due to excess calories; Z68.38 Body mass index [BMI] 38.0-38.9, adult; E55.9 Vitamin D deficiency, unspecified; Z79.84 Long term (current) use of oral hypoglycemic drugs; Z79.899 Other long term (current) drug therapy | CPT/HCPCS: 82947; 83036; 99212 ==

== ENCOUNTER 2021-11-21 12:13 | Outpatient (REF) | payer OTHER, SELFPAY ==
--- NOTE | ~2021-11-21 | XR_ITS ---
EXAMINATION: XR ABDOMEN KUB CLINICAL INDICATION: Abdominal COMPARISON: CT dated 07/25/2021. TECHNIQUE: 2 views of the abdomen. XR/XR KUB FINDINGS/IMPRESSION: The bowel gas pattern is normal with no evidence of ileus or obstruction. Again seen is a coarsely calcified spheroid structure in the upper pole of left kidney overlying a smaller stone within the left upper pole is better seen on the prior CT. No additional urinary calculi. The bones are unremarkable.
[2021-11-21 13:16] LABS: Appearance Urine CLEAR; Color Urine YELLOW; Glucose Urine UA NEG (NEG); Leukocyte Esterase Urine TRACE (NEG); Nitrite Urine NEG (NEG); Specific Gravity - Urine >= 1.030 (1.005-1.025); UACC Culture Trigger YES; Urine Blood TRACE (NEG); Urine Ketones 5 MG/DL (NEG); Urine Protein 1+ MG/DL (NEG-TRACE)
[2021-11-21 14:00] LABS: Bacteria Urine 2+ /LPF; Mucus Urine 1+ /LPF; Squamous Epithelial Cell Urine 3+ /LPF
== END 2021-11-21 12:14 | disposition home or self-care (01) ==
LOC: HO.XRAY 12:13
PROVIDERS: PCP Internal Medicine; Visit Provider Physician Assistant
DX: R10.9 Unspecified abdominal pain (principal)
CPT/HCPCS: 74018; 81001; 87086

== ENCOUNTER 2021-12-13 12:19 | Outpatient (REF) | payer OTHER, SELFPAY | END 2021-12-13 12:20 | disposition home or self-care (01) | LOC: HO.LNP 12:19 | PROVIDERS: Visit Provider Internal Medicine | DX: R30.0 Dysuria (principal) | CPT/HCPCS: 87086 ==

== ENCOUNTER → 2022-01-04 11:00 | Outpatient (BNVA) | payer OTHER, SELFPAY | PROVIDERS: PCP Internal Medicine; Referring Provider Internal Medicine; Visit Provider Surgery | DX: L82.1 Other seborrheic keratosis (principal) | CPT/HCPCS: 99202 ==

== ENCOUNTER 2022-01-08 13:37 | Outpatient (REF) | payer OTHER, SELFPAY ==
--- NOTE | ~2022-01-08 | US_ITS ---
EXAMINATION: US RETROPERITONEAL LIMITED (RENAL ONLY) CLINICAL INFORMATION: Calculus of kidney. COMPARISON: X-ray KUB 11/21/2021, CT abdomen and pelvis 07/25/2021, renal ultrasound 04/17/2021, ultrasound abdomen 12/13/2020. TECHNIQUE: Real-time imaging of the kidneys. FINDINGS: RIGHT KIDNEY: 11.9 x 6.9 x 6.6 cm (SAG x AP x TRV). The kidney is normal in size, contour, and echogenicity. Renal cortical thickness is normal. No hydronephrosis. There are multiple right renal cysts. The largest in the upper pole measures 4.6 x 3.4 x 3.4 cm, midpole measures 2.7 x 1.6 x 2.0 cm and 2.4 x 1.5 x 2.2 cm. There is a nonobstructive echogenic calculus midpole measuring 0.7 x 0.4 x 0.7 cm. LEFT KIDNEY: 13.4 x 8.3 x 7.0 cm (SAG x AP x TRV). The kidney is normal in size, contour, and echogenicity. Renal cortical thickness is normal. No hydronephrosis. There is an anechoic cyst in the lower pole measuring 9.5 x 7.6 x 8.5 cm. There are echogenic stones in the upper pole measuring 2.3 x 1.1 x 1.7 cm and in midpole measuring 1.4 x 1.2 x 0.9 cm. US/US renal BI IMPRESSION: Bilateral renal cysts. Nonobstructive bilateral echogenic stones without caliectasis or hydronephrosis.
== END 2022-01-08 13:38 | disposition home or self-care (01) ==
LOC: HO.US 13:37
DX: N20.0 Calculus of kidney (principal)
CPT/HCPCS: 76775

== ENCOUNTER → 2022-01-30 08:47 | Outpatient (BNVA) | payer OTHER, SELFPAY | PROVIDERS: PCP Internal Medicine | DX: N20.0 Calculus of kidney (principal); N28.1 Cyst of kidney, acquired | CPT/HCPCS: 99212 ==

== ENCOUNTER 2022-02-20 12:32 | Outpatient (REF) | payer OTHER, SELFPAY ==
--- NOTE | ~2022-02-20 | XR_ITS ---
EXAMINATION: XR LUMBOSACRAL SPINE CLINICAL INFORMATION: Low back pain COMPARISON: 09/29/2018 TECHNIQUE: Three views of the lumbosacral spine. FINDINGS: Mild multilevel degenerative disc disease. Normal alignment and lumbar lordosis. Prominent facet arthrosis at L4-L5, right greater than left, which may have slightly progressed. No acute abnormality. Redemonstration of the coarse calcification of the left kidney. XR/XR lumbar spine 2-3V IMPRESSION: Mild multilevel degenerative disc disease. L4-L5 facet arthrosis.
--- NOTE | ~2022-02-20 | XR_ITS ---
EXAMINATION: XR ABDOMEN KUB CLINICAL INDICATION: Cyst of kidney. COMPARISON: None TECHNIQUE: AP view of the abdomen. FINDINGS: There is scattered stool and gas seen in colon without distention. There is a coarse round calcified lesion in the upper pole left kidney similar to previous KUB 11/21/[address] abdomen exam 07/25/2021 XR/XR KUB IMPRESSION: Stable calcified lesion in the upper pole left kidney. No additional radiopaque calculi seen
[2022-02-20 15:19] LABS: Appearance Urine HAZY; Color Urine YELLOW; Glucose Urine UA NEG (NEG); Leukocyte Esterase Urine TRACE (NEG); Nitrite Urine NEG (NEG); Specific Gravity - Urine 1.025 (1.005-1.025); Urine Blood TRACE (NEG); Urine Ketones NEG (NEG); Urine Protein 2+ MG/DL (NEG-TRACE)
[2022-02-20 15:31] LABS: Squamous Epithelial Cell Urine 3+ /LPF
[2022-02-20 15:32] LABS: Bacteria Urine 1+ /LPF; Mucus Urine 3+ /LPF
[2022-02-20 15:40] LABS: Creatinine Urine 144.74 mg/dL; Protein/Creatinine Ratio, Ur 0.66 (<0.2); Total Protein Urine Random 96 mg/dL (<12)
== END 2022-02-20 12:33 | disposition home or self-care (01) ==
LOC: HO.XRAY 12:32
PROVIDERS: Absent Provider Internal Medicine Nephrology; PCP Internal Medicine; Visit Provider Internal Medicine
DX: M54.50 Low back pain, unspecified (principal); N28.1 Cyst of kidney, acquired; N20.0 Calculus of kidney
CPT/HCPCS: 72100; 74018; 81001; 84156

== ENCOUNTER 2022-02-23 08:29 | Outpatient (REF) | payer OTHER, SELFPAY ==
[2022-02-23 09:45] LABS: Creatinine Urine 259.51 mg/dL
[2022-02-23 09:47] LABS: Alanine Aminotransferase 43 U/L (0-31); Albumin Level 4.5 g/dL (3.5-5.0); Alkaline Phosphatase 85 U/L (39-117); Anion Gap 13 (12-20); Aspartate Amino Transferase 52 U/L (5-31); Bilirubin Total 0.4 mg/dL (0.0-1.0); Blood Urea Nitrogen 13 mg/dL (9-16); Calcium 9.7 mg/dL (8.4-10.2); Carbon Dioxide 27 mmol/L (22-29); Chloride 103 mmol/L (96-108); Cholesterol 244 mg/dL; Estimated Glomerular Filt Rate > 60; Glucose Fasting 149 mg/dL (60-99); HDL Cholesterol 54 mg/dL; LDL Cholesterol Calculated 159 mg/dl; Potassium 4.2 mmol/L (3.3-5.1); Sodium 139 mmol/L (135-145); Total Protein 7.8 g/dL (6.5-8.0); Triglycerides 157 mg/dL
[2022-02-23 09:58] LABS: Microalbum/Creatinine Ratio Ur 206.1 ug/mg cr
== END 2022-02-23 08:30 | disposition home or self-care (01) ==
LOC: HO.LAB 08:29
PROVIDERS: PCP Internal Medicine; Visit Provider Internal Medicine
DX: E78.5 Hyperlipidemia, unspecified (principal); E11.9 Type 2 diabetes mellitus without complications; K21.9 Gastro-esophageal reflux disease without esophagitis; E55.9 Vitamin D deficiency, unspecified
CPT/HCPCS: 36415; 80053; 80061; 82043; 82306

== ENCOUNTER 2022-03-19 06:47 | Day surgery (SDC) | payer OTHER, SELFPAY ==
[2022-03-13 11:37] VITALS: BMI 39.9
--- NOTE | 2022-03-16 08:37 | P.CONAN_ITS ---
Documented by User: Angelika Coyne NP 04/03/22 08:08 HPI - Anesthesia Eval Consult details Narrative: 61yo F for Colonoscopy PMFSH Active Problems Active Problems: All Active Problems (Updated 03/13/22 @ 11:31 by Susie Potter, RN) Sciatica (Acute) Trigger finger, right middle finger (Acute) Renal cyst (Acute) MDD (major depressive disorder), recurrent episode, moderate (Acute) Flank pain (Acute) Lumbar spine pain (Acute) Seborrheic keratoses (Acute) Renal cyst (Acute) Chronic GERD (Acute) Polyarthralgia (Acute) Right foot pain (Acute) Renal calculus, bilateral (Acute) Diabetes type 2, uncontrolled (Acute) Iron deficiency anemia (Acute) Osteopenia (Acute) Postmenopausal (Acute) Type 2 diabetes mellitus with other diabetic kidney complication (Acute) Proteinuria (Acute) Essential hypertension (Acute) Hyperlipidemia LDL goal <100 (Acute) Obesity due to excess calories (Acute) Vitamin D deficiency (Acute) Pure hypercholesterolemia (Acute) Past Medical History Medical History (Updated 03/13/22 @ 11:31 by Susie Potter RN) Arthropathy of knee Chronic GERD Diabetes mellitus, type II Diabetes type 2, uncontrolled Elevated LFTs Essential hypertension Fatty liver Hyperlipidemia LDL goal <100 Iron deficiency anemia Left foot pain Left shoulder pain Metatarsalgia Mild major depression, single episode Morbid obesity with BMI of 40.0-44.9, adult Obesity due to excess calories Osteopenia Polyarthralgia Postmenopausal Proteinuria Pure hypercholesterolemia Renal calculus, bilateral Renal cyst Right foot pain Spondylosis, cervical Thyroid nodule Type 2 diabetes mellitus with other diabetic kidney complication Venous thrombosis of upper extremity Vitamin D deficiency Family History Family History Father Stomach cancer Liver cancer Mother Myocardial infarct Diabetes CVD (cardiovascular disease) Sister Cervical cancer Brother Murder Surgical History Surgical History (Updated 03/13/22 @ 11:32 by Susie Potter RN) H/O colonoscopy History of cholecystectomy History of extraction of renal calculus History of removal of cyst History of shoulder surgery History of total abdominal hysterectomy and bilateral salpingo-oophorectomy Status post rotator cuff repair Social History Social History Household Members: Children Housing: House Alcohol intake: never Patient Tobacco Use Status: Never used Tobacco e-Cigarette/Vaping Use: Never Used Second Hand Smoke Exposure: No service: No Current occupational status: disabled Current occupation: right handed Cognitive needs: Yes (Pt use a cane) Hearing needs: No Vision needs: No Meds Allergies Allergy/AdvReac Type Severity Reaction Status Date / Time atorvastatin Allergy Intermediate elevated Verified 02/15/22 14:34 liver enzymes, elevated enzymes duloxetine [Cymbalta] Allergy Intermediate headache Verified 02/15/22 14:34 Home Medications Medication Instructions Recorded Confirmed Last Taken Type ferrous sulfate 325 mg (65 mg 325 mg PO DAILY 05/04/20 02/15/22 Unknown History iron) tablet,delayed release losartan 25 mg tablet 25 mg PO DAILY 05/04/20 03/13/22 Unknown History potassium citrate 10 mEq (1,080 10 meq PO TID 05/04/20 02/15/22 Unknown History mg) tablet,extended release ursodiol 300 mg capsule 300 mg PO BID 05/04/20 03/13/22 Unknown History omeprazole 20 mg capsule,delayed 20 mg PO QAM 05/30/20 03/13/22 Unknown History release blood sugar diagnostic #10 ea 11/24/20 02/15/22 Unknown History alclometasone 0.05 % topical cream appl topical BID PRN 01/30/22 02/15/22 U nknown History Exam Exam Date and Time: March 16, 2022 0837 Height,Weight and Vital Signs: Height 5 ft 1 in Weight 95.708 kg Pertinent Lab Results Pertinent Lab Results: Laboratory Tests 11/02/21 02/23/22 10:46 08:38 WBC 6.5 Hgb 13.8 Hct 42.5 Plt Count 230 Sodium 139 Potassium 4.2 Chloride 103 Carbon Dioxide 27 BUN 13 Creatinine 0.82 Assessment and Plan Assessment Anesthesia Assessment: Chart Reviewed Documented by User: Gideon Hughes MD [facility] Past Medical History Medical History (Updated 03/13/22 @ 11:31 by Susie Potter RN) Arthropathy of knee Chronic GERD Diabetes mellitus, type II Diabetes type 2, uncontrolled Elevated LFTs Essential hypertension Fatty liver Hyperlipidemia LDL goal <100 Iron deficiency anemia Left foot pain Left shoulder pain Metatarsalgia Mild major depression, single episode Morbid obesity with BMI of 40.0-44.9, adult Obesity due to excess calories Osteopenia Polyarthralgia Postmenopausal Proteinuria Pure hypercholesterolemia Renal calculus, bilateral Renal cyst Right foot pain Spondylosis, cervical Thyroid nodule Type 2 diabetes mellitus with other diabetic kidney complication Venous thrombosis of upper extremity Vitamin D deficiency Family History Family History Father Stomach cancer Liver cancer Mother Myocardial infarct Diabetes CVD (cardiovascular disease) Sister Cervical cancer Brother Murder Family history of problems with anesthesia: No Surgical History Surgical History (Updated 03/13/22 @ 11:32 by Susie Potter RN) H/O colonoscopy History of cholecystectomy History of extraction of renal calculus History of removal of cyst History of shoulder surgery History of total abdominal hysterectomy and bilateral salpingo-oophorectomy Status post rotator cuff repair History of Problems with Anesthesia: No Social History Social History Household Members: Children Housing: House Alcohol intake: never Patient Tobacco Use Status: Never used Tobacco e-Cigarette/Vaping Use: Never Used Second Hand Smoke Exposure: No service: No Current occupational status: disabled Current occupation: right handed Cognitive needs: Yes (Pt use a cane) Hearing needs: No Vision needs: No Meds Allergies Allergy/AdvReac Type Severity Reaction Status Date / Time atorvastatin Allergy Intermediate elevated Verified 02/15/22 14:34 liver enzymes, elevated enzymes duloxetine [Cymbalta] Allergy Intermediate headache Verified 02/15/22 14:34 Home Medications Medication Instructions Recorded Confirmed Last Taken Type ferrous sulfate 325 mg (65 mg 325 mg PO DAILY 05/04/20 02/15/22 Unknown History iron) tablet,delayed release losartan 25 mg tablet 25 mg PO DAILY 05/04/20 03/13/22 Unknown History potassium citrate 10 mEq (1,080 10 meq PO TID 05/04/20 02/15/22 Unknown History mg) tablet,extended release ursodiol 300 mg capsule 300 mg PO BID 05/04/20 03/13/22 Unknown History omeprazole 20 mg capsule,delayed 20 mg PO QAM 05/30/20 03/13/22 Unknown History release blood sugar diagnostic #10 ea 11/24/20 02/15/22 Unknown History alclometasone 0.05 % topical cream appl topical BID PRN 01/30/22 02/15/22 Unknown History Exam Airway Mallampati Class: III TM Dist: >3cm Neck ROM: Full Loose/Missing/Broken Teeth: No Heart: rrr Lungs: clear Assessment and Plan Final Anesthetic Review Family History of Problems with Anesthesia: No History of Problems with Anesthesia: No
[2022-03-19 07:43] VITALS: BP 164/93; PULSE 95; RESP 18; TEMP 36.6; O2SAT 97
[2022-03-19 07:56] LABS: Glucose, Whole Blood 154 mg/dL (60-115)
[2022-03-19] MEDS: Lactated Ringers 1,000 ML 100 ML IVCONT (08:03)
[2022-03-19 09:32] VITALS: BP 126/80; PULSE 80; RESP 20; TEMP 36.5; O2SAT 98
--- NOTE | 2022-03-19 09:36 | PM.OP ---
Brief Operative Note Date of Service: 03/19/22 Pre-op diagnosis: Screening Post-op diagnosis: other (Diverticulosis) Procedure: Colonoscopy to the cecum Surgeon: Kostas Erazo Anesthesia: MAC Was an Airport Operations Specialist used for this Procedure?: No Estimated blood loss (mL): 2.0 Pathology: none sent Condition: stable Disposition: PACU
[2022-03-19 09:47] VITALS: BP 139/82; PULSE 77; RESP 16; TEMP 36.5; O2SAT 98
--- NOTE | 2022-03-19 10:34 | OP_ITS ---
SURGEON: Kostas Erazo MD INDICATIONS: The patient presents for evaluation of colorectal cancer screening. Full consent has been obtained from her for this, including risks of bleeding and perforation. PREOPERATIVE DIAGNOSIS: Colorectal cancer screening. POSTOPERATIVE DIAGNOSIS: PROCEDURE PERFORMED: Colonoscopy to the cecum. ESTIMATED BLOOD LOSS: COMPLICATIONS: ANESTHESIA: Monitored anesthesia care. ASSISTANTS: SPECIMENS: POSTOPERATIVE DIAGNOSES: Colorectal cancer screening, diverticulosis, and internal hemorrhoids. DESCRIPTION OF PROCEDURE: The patient was placed in the left lateral decubitus position. The digital rectal exam revealed no abnormalities. The Olympus video pediatric colonoscope was entered into the rectum and advanced easily to the cecum. Once in the cecum, I did identify cecal pouch with appendiceal orifice and a normal-appearing ileocecal valve. However, portions of the cecum could not be visualized very well due to some retained stool that could not be moved away. However, the majority of the cecum did appear normal. The scope was then slowly withdrawn assessing all mucosal surfaces carefully. The remainder of the preparation was excellent. Other than some small areas of liquid stool in the sigmoid colon. I did not visualize any sign of polyps, colitis, nor angiodysplasia. There was a mild amount of sigmoid diverticulosis. In the rectum, the scope was retroflexed visualizing some internal hemorrhoids, but no other pathology. The rectal mucosa appeared normal. The scope was straightened and withdrawn from the patient. She tolerated the procedure well and was returned to the recovery area in stable condition. IMPRESSION: 1. Diverticulosis. 2. Internal hemorrhoids. 3. Somewhat limited prep. PLAN: Given the somewhat limited prep, I would recommend a repeat colonoscopy in 5 years rather than 10. She will see me in 2022 for followup of the underlying history of fatty liver. She was reminded today to keep her appointment for the upcoming abdominal ultrasound and laboratories for the underlying liver disease. MD PHOEBE Campos/FER / [id number] SAM
== END 2022-03-19 10:37 | disposition home or self-care (01) ==
PROVIDERS: PCP Internal Medicine; Visit Provider Internal Medicine
PROC: 0DJD8ZZ Inspection of Lower Intestinal Tract, Via Natural or Artificial Opening Endoscopic (ICD-10-PCS; CPT 45378; principal; 2022-03-19 08:40)
DX: Z12.11 Encounter for screening for malignant neoplasm of colon (principal); K57.30 Diverticulosis of large intestine without perforation or abscess without bleeding; K64.8 Other hemorrhoids; K21.9 Gastro-esophageal reflux disease without esophagitis; K76.0 Fatty (change of) liver, not elsewhere classified; K74.00 Hepatic fibrosis, unspecified; R74.8 Abnormal levels of other serum enzymes; I10 Essential (primary) hypertension; E78.5 Hyperlipidemia, unspecified; E11.9 Type 2 diabetes mellitus without complications; Z79.84 Long term (current) use of oral hypoglycemic drugs; Z79.899 Other long term (current) drug therapy; Z87.442 Personal history of urinary calculi
CPT/HCPCS: 45378; 82947

== ENCOUNTER 2022-03-23 14:02 | Outpatient (REF) | payer OTHER, SELFPAY ==
--- NOTE | ~2022-03-23 | US_ITS ---
EXAMINATION: US ABDOMEN COMPLETE CLINICAL INFORMATION: Fatty liver, fibrosis. COMPARISON: X-ray KUB 02/20/2022 and 11/21/2021. Renal ultrasound 01/08/2022 and 04/17/2021. CT abdomen and pelvis 07/25/2021. TECHNIQUE: Real-time imaging of the abdominal viscera. FINDINGS: PANCREAS: The head and the body of the pancreas is homogeneous in echotexture. The tail is obscured by overlying gas. ABDOMINAL AORTA: The proximal, mid, and distal segments are normal in caliber. INFERIOR VENA CAVA: Visualized portions are normal. LIVER: The liver is normal in size. The liver contour is normal. The liver is coarse and diffusely echogenic. No focal hepatic lesion. There is no intrahepatic biliary duct dilatation seen. GALLBLADDER: Surgically absent. COMMON BILE DUCT: Normal in caliber measuring 1.1 cm in diameter. RIGHT KIDNEY: There are multiple anechoic cysts with some of the cysts having echogenic calcification. The largest cyst midpole measures 4.6 x 2.8 x 3.5 cm. The largest calcification measures 1.1 cm and upper pole measures 0.8 cm. There are small echogenic calcifications as well. No hydronephrosis. The kidney measures 12.0 cm in maximum dimension. LEFT KIDNEY: There are multiple anechoic cysts with the largest cyst in the lower pole measuring 9.5 x 7.6 x 8.5 cm. There are multiple echogenic calcifications. There are small echogenic calcifications as well. No hydronephrosis. The kidney measures 13.3 cm in maximum dimension. SPLEEN: Normal. The spleen measures 10.7 cm in maximum dimension. FREE FLUID: None. US/US abdomen complete IMPRESSION: Multiple bilateral anechoic cysts with some of the cysts having calcifications and are complex cyst. Bilateral renal cysts were seen on the previous study 01/08/2022. Bilateral nephrocalcinosis. There is no hydronephrosis.
== END 2022-03-23 14:03 | disposition home or self-care (01) ==
LOC: HO.HMGCX 14:02
PROVIDERS: PCP Internal Medicine; Visit Provider Internal Medicine
DX: K86.0 Alcohol-induced chronic pancreatitis (principal); K74.00 Hepatic fibrosis, unspecified
CPT/HCPCS: 76700

== ENCOUNTER 2022-04-06 07:28 | Outpatient (REF) | payer OTHER, SELFPAY ==
--- NOTE | ~2022-04-06 | MM_ITS ---
EXAMINATION: MM SCREENING DIGITAL BREAST TOMOSYNTHESIS, BILATERAL CLINICAL INFORMATION: Screening. Asymptomatic. The lifetime risk of breast cancer based on the Tyrer-Cuzick Model is 7%. COMPARISON: Mammography: 04/17/2021, 03/31/2021, 08/17/2019, 08/15/2018 TECHNIQUE: Digital breast tomosynthesis is performed in both the craniocaudal and mediolateral oblique views along with computer-aided detection (CAD). Synthesized 2D images are generated from the tomosynthesis. Additional left MLO view is provided. FINDINGS: There are scattered areas of fibroglandular density (ACR BI-RADS breast composition Category b). There are no significant masses, abnormal calcifications, or other abnormalities. No developing density or architectural abnormality. There are scattered benign grouped coarse and vascular calcifications again seen. No significant changes. MM/MM tomosynthesis screening BI IMPRESSION: No mammographic evidence of malignancy. ASSESSMENT: BI-RADS 2: Benign RECOMMENDATION: Routine annual mammography screening. This patient's information was entered into a reminder system with a target due date for their next mammogram.
== END 2022-04-06 07:29 | disposition home or self-care (01) ==
LOC: HO.MAMMO 07:28
PROVIDERS: PCP Internal Medicine; Visit Provider Internal Medicine
DX: Z12.31 Encounter for screening mammogram for malignant neoplasm of breast (principal)
CPT/HCPCS: 77063; 77067

== ENCOUNTER 2022-04-16 14:36 | Outpatient (REF) | payer OTHER, SELFPAY ==
[2022-04-16 15:02] LABS: Binax Now Covid-19 Ag Positive (Negative)
[2022-04-16 15:03] LABS: Binax Internal Control QC Valid
== END 2022-04-16 14:37 | disposition home or self-care (01) ==
LOC: HO.HMGCLDS 14:36
PROVIDERS: PCP Internal Medicine; Visit Provider Internal Medicine
DX: Z20.822 Contact with and (suspected) exposure to COVID-19 (principal); J06.9 Acute upper respiratory infection, unspecified
CPT/HCPCS: 87811; C9803

== ENCOUNTER 2022-04-23 12:31 | Outpatient (REF) | payer OTHER, SELFPAY ==
[2022-04-23 13:16] LABS: Binax Internal Control QC Valid; Binax Now Covid-19 Ag Negative (Negative)
== END 2022-04-23 12:32 | disposition home or self-care (01) ==
LOC: HO.HMGCLDS 12:31
PROVIDERS: PCP Internal Medicine; Visit Provider Physician Assistant
DX: Z20.822 Contact with and (suspected) exposure to COVID-19 (principal)
CPT/HCPCS: 87811; C9803

== ENCOUNTER → 2022-05-02 09:46 | Outpatient (BNVA) | payer OTHER, SELFPAY | PROVIDERS: PCP Internal Medicine; Visit Provider Nurse Practitioner Family | DX: M65.331 Trigger finger, right middle finger (principal); M79.671 Pain in right foot | CPT/HCPCS: 99212 ==

== ENCOUNTER 2022-05-23 08:35 | Outpatient (REF) | payer OTHER, SELFPAY ==
[2022-05-23 08:46] LABS: MANUAL DIFF FLAG NO
[2022-05-23 09:32] LABS: Basophils Percent Auto 0.3 % (0-2); Eosinophils Absolute Auto 0.1 X10*3/uL (0.0-0.4); Eosinophils Percent Auto 0.6 % (0-4); Hematocrit 40.4 % (37.0-47.0); Hemoglobin 13.4 g/dl (12.0-16.0); Imm Gran Abs Auto 0.02 X10*3/uL (0.00-0.03); Imm Gran Pct Auto 0.3 % (0.0-0.4); Lymphocytes Absolute Auto 3.2 X10*3/uL (1.2-4.9); Lymphocytes Percent Auto 39.7 % (20-40); Mean Corpuscular HGB Conc 33.2 g/dl (31.0-35.0); Mean Corpuscular Volume 87.4 fL (80.0-98.0); Mean Platelet Volume 9.4 fL (9.4-12.3); Monocytes Absolute Auto 0.4 X10*3/uL (0.1-1.2); Monocytes Percent Auto 5.3 % (2-11); Neutrophils Absolute Auto 4.3 x10*3/uL (2.0-8.3); Neutrophils Percent Auto 53.8 % (45-73); Platelet Count 236 X10*3/uL (160-400); Red Blood Count 4.62 X10*6/uL (4.20-5.50); Red Cell Distribution Width 13.7 % (11.0-16.0); White Blood Count 7.9 X10*3/uL (4.8-10.8)
[2022-05-23 09:59] LABS: Creatinine Urine 130.82 mg/dL; Microalbum/Creatinine Ratio Ur 195.6 ug/mg cr
[2022-05-23 10:02] LABS: Alanine Aminotransferase 33 U/L (0-31); Albumin Level 4.5 g/dL (3.5-5.0); Alkaline Phosphatase 81 U/L (39-117); Anion Gap 16 (12-20); Aspartate Amino Transferase 38 U/L (5-31); Bilirubin Total 0.5 mg/dL (0.0-1.0); Blood Urea Nitrogen 12 mg/dL (9-16); Carbon Dioxide 27 mmol/L (22-29); Chloride 101 mmol/L (96-108); Cholesterol 228 mg/dL; Estimated Glomerular Filt Rate > 60; Glucose Fasting 133 mg/dL (60-99); HDL Cholesterol 53 mg/dL; Iron 91 mcg/dL (30-160); LDL Cholesterol Calculated 149 mg/dl; Percent Iron Saturation 24 % (15-50); Potassium 4.3 mmol/L (3.3-5.1); Sodium 140 mmol/L (135-145); Total Iron Binding Capacity 380 mcg/dL (228-428); Total Protein 7.6 g/dL (6.5-8.0); Triglycerides 134 mg/dL; Unsaturated Iron Binding 289 ug/dL
[2022-05-23 10:26] LABS: Vitamin D 25-OH Total 23.4 ng/mL (>30)
== END 2022-05-23 08:36 | disposition home or self-care (01) ==
LOC: HO.LAB 08:35
PROVIDERS: PCP Internal Medicine; Visit Provider Internal Medicine
DX: E11.65 Type 2 diabetes mellitus with hyperglycemia (principal); D64.9 Anemia, unspecified; E55.9 Vitamin D deficiency, unspecified; E78.5 Hyperlipidemia, unspecified
CPT/HCPCS: 36415; 80053; 80061; 82043; 82306; 83540; 85025

== ENCOUNTER 2022-06-01 07:19 | Outpatient (REF) | payer OTHER, SELFPAY ==
[2022-06-01 07:39] LABS: MANUAL DIFF FLAG NO
[2022-06-01 08:19] LABS: Basophils Percent Auto 0.3 % (0-2); Eosinophils Absolute Auto 0.1 X10*3/uL (0.0-0.4); Eosinophils Percent Auto 0.8 % (0-4); Hematocrit 41.8 % (37.0-47.0); Hemoglobin 13.6 g/dl (12.0-16.0); Imm Gran Abs Auto 0.02 X10*3/uL (0.00-0.03); Imm Gran Pct Auto 0.3 % (0.0-0.4); Lymphocytes Absolute Auto 3.6 X10*3/uL (1.2-4.9); Lymphocytes Percent Auto 45.4 % (20-40); Mean Corpuscular HGB Conc 32.5 g/dl (31.0-35.0); Mean Corpuscular Hemoglobin 28.9 pg (27.0-33.0); Mean Corpuscular Volume 88.7 fL (80.0-98.0); Mean Platelet Volume 9.7 fL (9.4-12.3); Monocytes Absolute Auto 0.5 X10*3/uL (0.1-1.2); Monocytes Percent Auto 5.7 % (2-11); Neutrophils Absolute Auto 3.7 x10*3/uL (2.0-8.3); Neutrophils Percent Auto 47.5 % (45-73); Platelet Count 228 X10*3/uL (160-400); Red Blood Count 4.71 X10*6/uL (4.20-5.50); Red Cell Distribution Width 13.7 % (11.0-16.0); White Blood Count 7.8 X10*3/uL (4.8-10.8)
[2022-06-01 08:20] LABS: Prothrombin Time 11.5 SEC (10.0-13.1)
[2022-06-01 08:52] LABS: Alanine Aminotransferase 31 U/L (0-31); Albumin Level 4.5 g/dL (3.5-5.0); Alkaline Phosphatase 85 U/L (39-117); Aspartate Amino Transferase 36 U/L (5-31); Bilirubin Direct 0.2 mg/dL (0.0-0.5); Bilirubin Total 0.2 mg/dL (0.0-1.0); Total Protein 7.7 g/dL (6.5-8.0)
[2022-06-01 08:53] LABS: Creatinine Urine 173.28 mg/dL
[2022-06-01 08:54] LABS: Protein/Creatinine Ratio, Ur 0.64 (<0.2); Total Protein Urine Random 111 mg/dL (<12)
[2022-06-01 08:58] LABS: Cholesterol 198 mg/dL; HDL Cholesterol 60 mg/dL; LDL Cholesterol Calculated 123 mg/dl; Triglycerides 79 mg/dL
[2022-06-01 09:08] LABS: Vitamin D 25-OH Total 24.4 ng/mL (>30)
[2022-06-01 09:13] LABS: Microalbum/Creatinine Ratio Ur 330.1 ug/mg cr
[2022-06-01 09:14] LABS: Anion Gap 15 (12-20); Blood Urea Nitrogen 12 mg/dL (9-16); Carbon Dioxide 26 mmol/L (22-29); Chloride 102 mmol/L (96-108); Estimated Glomerular Filt Rate > 60; Potassium 3.8 mmol/L (3.3-5.1); Sodium 139 mmol/L (135-145)
[2022-06-01 09:19] LABS: Appearance Urine Hazy; Color Urine Yellow; Glucose Urine UA Negative (Negative); Leukocyte Esterase Urine Small (1+) (Negative); Nitrite Urine Negative (Negative); Specific Gravity - Urine >= 1.030 (1.005-1.025); UMIC TRIGGER UA YES; Urine Blood Trace (Negative); Urine Ketones Trace mg/dL (Negative); Urine Protein 100 (2+) mg/dL (Neg-Trace)
[2022-06-01 09:32] LABS: Uric Acid 6.3 mg/dL (2.4-5.7)
[2022-06-01 09:33] LABS: RBC Urine 0-2 /HPF (0-2)
[2022-06-01 09:34] LABS: Bacteria Urine 1+ (None Seen); Calcium Oxalate Crystals Urine Present; Hyaline Casts Urine 0-2 /LPF (0-2); Squamous Epithelial Cell Urine 0-2 /HPF (0-2)
[2022-06-04 13:46] LABS: Alpha Fetoprotein 4.9 ng/mL
[2022-06-07 16:56] LABS: FIB-ALT 30 U/L (6-29); FIB-Alpha-2-Macroglobulin 225 mg/dL (106-279); FIB-Apolipoprotein A1 187 mg/dL (101-198); FIB-GGT 22 U/L (3-65); FIB-Haptoglobin 182 mg/dL (43-212); FIB-Total Bilirubin 0.4 mg/dL (0.2-1.2); Liver Fibrosis Score 0.12; Liver Fibrosis Stage F0; Nec Inflam Act Grade A0; Nec Inflam Act Score 0.12
== END 2022-06-01 07:20 | disposition home or self-care (01) ==
LOC: HO.LAB 07:19
PROVIDERS: Absent Provider Internal Medicine Nephrology; PCP Internal Medicine; Visit Provider Internal Medicine
DX: E55.9 Vitamin D deficiency, unspecified (principal); E78.5 Hyperlipidemia, unspecified; E11.9 Type 2 diabetes mellitus without complications; N18.2 Chronic kidney disease, stage 2 (mild); K76.0 Fatty (change of) liver, not elsewhere classified; K74.00 Hepatic fibrosis, unspecified; R74.8 Abnormal levels of other serum enzymes
CPT/HCPCS: 36415; 80051; 80061; 80076; 81001; 81003; 81596; 82043; 82105; 82306; 82310; 82565; 84156; 84520; 84550; 85025; 85610

== ENCOUNTER → 2022-07-31 10:48 | Outpatient (BNVA) | payer OTHER, SELFPAY | PROVIDERS: PCP Internal Medicine; Visit Provider Nurse Practitioner Family | DX: N28.1 Cyst of kidney, acquired (principal); Z87.442 Personal history of urinary calculi | CPT/HCPCS: 99212 ==

== ENCOUNTER 2022-08-28 08:12 | Outpatient (REF) | payer OTHER, SELFPAY ==
--- NOTE | ~2022-08-28 | MM_ITS ---
EXAMINATION: BONE DENSITOMETRY CLINICAL INDICATION: Menopause. COMPARISON: Previous BD dated 08/23/2020 and baseline BD dated 09/06/2011. TECHNIQUE: Using a AwesomeTouch DXA System (software version: 13.1) manufactured by [employer], dual-energy x-ray absorptiometry was performed of the lumbar spine and left hip. The images are of good technical quality. Summary results are attached. FINDINGS: AP SPINE L1-L4: Current: BMD 0.970 g/cm2, Z-score -1.4, T-score -1.8, osteopenia, 15.0% decrease from previous, 14.1% decrease from baseline (<5% change is not significant). Prior: BMD 1.141 g/cm2. Baseline: BMD 1.129 g/cm2. LEFT FEMUR, NECK: Current: BMD 0.926 g/cm2, Z-score -0.1, T-score -0.8, normal. Prior: BMD 0.888 g/cm2. Baseline: BMD 1.047 g/cm2. LEFT FEMUR, TOTAL: Current: BMD 1.159 g/cm2, Z-score 1.5, T-score 1.2, normal, 1.0% increase from previous, 5.1% decrease from baseline (<5% change is not significant). Prior: BMD 1.148 g/cm2. Baseline: BMD 1.221 g/cm2. IDENTIFIED RISK FACTORS: Menopause, low calcium intake, hysterectomy, history of fracture (adult), bilateral oophorectomy. HISTORY OF FRACTURE: Shoulder. MEDICATIONS: Vitamin D. MM/XR DEXA axial skeleton IMPRESSION: 1. DIAGNOSIS: Osteopenia based on the lowest T-score value of -1.8 in the lumbar spine applying World Health Organization criteria. 2. 10-YEAR FRACTURE RISK PREDICTION, FRAX: Major osteoporotic fracture (clinical spine, forearm, hip or shoulder) 6.1%. Hip fracture 0.3%. 3. Treatment Recommendations: NOF guidelines recommend consideration for treatment in postmenopausal women and men age 50 and older presenting with the following: -A hip or vertebral (clinical or morphometric) fracture. -T-score less than or equal to -2.5 at the femoral neck or spine after appropriate evaluation to exclude secondary causes. -Low bone mass at the hip or spine and a 10-year fracture probability by FRAX of greater than or equal to 3% for hip fracture or greater than or equal to 20% for major osteoporotic fracture based on the [place] adapted WHO algorithm. 4. Other Recommendations: All treatment decisions require clinical judgment and consideration of individual patient factors, including patient preferences, comorbidities, previous drug use, risk factors not captured in the FRAX model (e.g. frailty, falls, vitamin D deficiency, increased bone turnover, interval significant decline in bone density) and possible under or overestimation of fracture risk by FRAX. Additional medical evaluation for secondary cause of low bone mineral density may be appropriate. FUTURE SCAN RECOMMENDATION: People with diagnosed cases of osteoporosis or at high risk for fracture should have regular bone mineral density tests. For patients eligible for Medicare, routine testing is allowed once every 2 years. The testing frequency can be increased to one year for patients who have rapidly progressing disease, those who are receiving or discontinuing medical therapy to restore bone mass, or have additional risk factors.
== END 2022-08-28 08:13 | disposition home or self-care (01) ==
LOC: HO.MAMMO 08:12
PROVIDERS: PCP Internal Medicine; Visit Provider Internal Medicine
DX: Z13.820 Encounter for screening for osteoporosis (principal); Z78.0 Asymptomatic menopausal state
CPT/HCPCS: 77080

== ENCOUNTER 2022-10-29 12:07 | Outpatient (REF) | payer OTHER, SELFPAY ==
--- NOTE | ~2022-10-29 | US_ITS ---
EXAMINATION: US RETROPERITONEAL LIMITED (RENAL ONLY) CLINICAL INFORMATION: Cyst of kidney, acquired. COMPARISON: Ultrasound abdomen complete 03/23/2022. X-ray abdomen KUB 02/20/2022. Ultrasound retroperitoneal limited (renal only) 01/08/2022. X-ray abdomen KUB 11/21/2021. CT abdomen and pelvis without contrast 07/25/2021. TECHNIQUE: Real-time imaging of the kidneys. FINDINGS: RIGHT KIDNEY: 12.0 x 6.7 x 6.4 cm (SAG x AP x TRV). The kidney is normal in size, contour, and echogenicity. Renal cortical thickness is normal. No hydronephrosis. There are several anechoic cysts. The largest cysts are measured. Upper pole cyst measures 3.7 x 4.2 x 3.9 cm, midpole cyst measures 1.9 x 1.6 x 2.2 cm, lower pole cyst measures 2.1 x 1.5 x 2.0 cm. There is nonobstructive echogenic calculi midpole measuring 0.6 x 0.5 x 0.6 cm. LEFT KIDNEY: 13.4 x 7.5 x 6.8 cm (SAG x AP x TRV). The kidney is normal in size, contour, and echogenicity. Renal cortical thickness is normal. No hydronephrosis. There are several anechoic simple cysts. The largest cyst lower pole measures 9.9 x 8.2 x 9.3 cm. Upper pole medially measures 1.8 x 1.6 x 1.7 cm. There is an echogenic stone upper pole measuring 1.8 x 1.6, midpole measuring 0.5 x 0.3 x 0.5 cm and midpole measures 0.8 x 0.6 x 0.7 cm. US/US renal BI IMPRESSION: Multiple bilateral renal cysts and multiple echogenic renal calculi. The findings are essentially same as previous study 03/23/2022.
== END 2022-10-29 12:08 | disposition home or self-care (01) ==
LOC: HO.US 12:07
PROVIDERS: PCP Internal Medicine; Visit Provider Nurse Practitioner Family
DX: N20.0 Calculus of kidney (principal); N28.1 Cyst of kidney, acquired
CPT/HCPCS: 76775

== ENCOUNTER 2022-10-30 10:27 | Outpatient (REF) | payer OTHER, SELFPAY ==
--- NOTE | ~2022-10-30 | XR_ITS ---
EXAMINATION: Left foot and right hand. CLINICAL INDICATIONS: Pain in left heel. COMPARISON: Left foot 09/08/2020 TECHNIQUE: 3 views left foot and 3 views right hand. FINDINGS: Left foot: There is no visible acute fracture, dislocation or subluxation seen. There is a moderate size calcaneal heel and a small retrocalcaneal spur. The ankle mortise and subtalar joints are normal. The soft tissues are normal. Right hand: There is no visible acute fracture, dislocation or subluxation seen. The there is mild loss of the DIP joint fifth digit. No bony erosive changes seen. The soft tissues are normal. Joint space is maintained normal. The soft tissues are normal. XR/XR hand RT min 3V IMPRESSION: 1. Moderate-sized calcaneal heel and a small retrocalcaneal spur left foot. No visible acute fracture, dislocation or subluxation seen. 2. Unremarkable right hand exam except for mild degenerative changes DIP joint fifth digit.
--- NOTE | ~2022-10-30 | XR_ITS ---
EXAMINATION: Left foot and right hand. CLINICAL INDICATIONS: Pain in left heel. COMPARISON: Left foot 09/08/2020 TECHNIQUE: 3 views left foot and 3 views right hand. FINDINGS: Left foot: There is no visible acute fracture, dislocation or subluxation seen. There is a moderate size calcaneal heel and a small retrocalcaneal spur. The ankle mortise and subtalar joints are normal. The soft tissues are normal. Right hand: There is no visible acute fracture, dislocation or subluxation seen. The there is mild loss of the DIP joint fifth digit. No bony erosive changes seen. The soft tissues are normal. Joint space is maintained normal. The soft tissues are normal. XR/XR foot LT 2V IMPRESSION: 1. Moderate-sized calcaneal heel and a small retrocalcaneal spur left foot. No visible acute fracture, dislocation or subluxation seen. 2. Unremarkable right hand exam except for mild degenerative changes DIP joint fifth digit.
[2022-10-30 12:42] LABS: MANUAL DIFF FLAG NO
[2022-10-30 12:49] LABS: Basophils Percent Auto 0.1 % (0-2); Eosinophils Percent Auto 0.4 % (0-4); Hematocrit 40.4 % (37.0-47.0); Hemoglobin 13.3 g/dl (12.0-16.0); Imm Gran Abs Auto 0.02 X10*3/uL (0.00-0.03); Imm Gran Pct Auto 0.3 % (0.0-0.4); Lymphocytes Absolute Auto 3.2 X10*3/uL (1.2-4.9); Lymphocytes Percent Auto 41.2 % (20-40); Mean Corpuscular HGB Conc 32.9 g/dl (31.0-35.0); Mean Corpuscular Hemoglobin 28.9 pg (27.0-33.0); Mean Corpuscular Volume 87.8 fL (80.0-98.0); Mean Platelet Volume 9.3 fL (9.4-12.3); Monocytes Absolute Auto 0.4 X10*3/uL (0.1-1.2); Monocytes Percent Auto 5.2 % (2-11); Neutrophils Absolute Auto 4.1 x10*3/uL (2.0-8.3); Neutrophils Percent Auto 52.8 % (45-73); Platelet Count 206 X10*3/uL (160-400); Red Cell Distribution Width 13.2 % (11.0-16.0); White Blood Count 7.8 X10*3/uL (4.8-10.8)
[2022-10-30 13:31] LABS: Erythrocyte Sedimentation Rate 16 MM/HR (0-20)
[2022-10-30 15:44] LABS: Creatinine Urine 150.01 mg/dL; Microalbum/Creatinine Ratio Ur 231.3 ug/mg cr
[2022-10-30 16:13] LABS: Alanine Aminotransferase 28 U/L (0-31); Albumin Level 4.5 g/dL (3.5-5.0); Alkaline Phosphatase 76 U/L (39-117); Anion Gap 11 (12-20); Aspartate Amino Transferase 31 U/L (5-31); Bilirubin Total 0.5 mg/dL (0.0-1.0); Blood Urea Nitrogen 16 mg/dL (9-16); C Reactive Protein 0.19 mg/dL (< or = 0.50); Carbon Dioxide 30 mmol/L (22-29); Chloride 104 mmol/L (96-108); Cholesterol 143 mg/dL; Estimated Glomerular Filt Rate > 60; Glucose Fasting 166 mg/dL (60-99); HDL Cholesterol 47 mg/dL; Iron 57 mcg/dL (30-160); LDL Cholesterol Calculated 80 mg/dl; Percent Iron Saturation 17 % (15-50); Sodium 141 mmol/L (135-145); Total Iron Binding Capacity 339 mcg/dL (228-428); Total Protein 7.3 g/dL (6.5-8.0); Triglycerides 81 mg/dL; Unsaturated Iron Binding 282 ug/dL
[2022-10-30 16:33] LABS: Vitamin D 25-OH Total 27.9 ng/mL (>30)
== END 2022-10-30 10:28 | disposition home or self-care (01) ==
LOC: HO.LAB 10:27
PROVIDERS: PCP Internal Medicine; Visit Provider Nurse Practitioner Family
DX: D64.9 Anemia, unspecified (principal); E78.5 Hyperlipidemia, unspecified; E11.65 Type 2 diabetes mellitus with hyperglycemia; E55.9 Vitamin D deficiency, unspecified; M79.641 Pain in right hand; M79.672 Pain in left foot; M65.331 Trigger finger, right middle finger; M79.7 Fibromyalgia; R76.8 Other specified abnormal immunological findings in serum
CPT/HCPCS: 36415; 73130; 73620; 80053; 80061; 82043; 82306; 83540; 85025; 85652; 86140; 99212

== ENCOUNTER → 2022-11-21 13:40 | Outpatient (BNVA) | payer OTHER, SELFPAY | PROVIDERS: PCP Internal Medicine; Visit Provider Nurse Practitioner Family | DX: M65.331 Trigger finger, right middle finger (principal); R76.8 Other specified abnormal immunological findings in serum; M79.7 Fibromyalgia | CPT/HCPCS: 99212 ==

== ENCOUNTER → 2022-11-26 12:36 | Outpatient (BNVA) | payer OTHER, SELFPAY | PROVIDERS: PCP Internal Medicine; Visit Provider Urology | DX: N28.1 Cyst of kidney, acquired (principal); N20.0 Calculus of kidney | CPT/HCPCS: 99212 ==

== ENCOUNTER 2022-11-30 09:36 | Outpatient (REF) | payer OTHER, SELFPAY ==
[2022-11-30 11:01] LABS: Anion Gap 15 (12-20); Blood Urea Nitrogen 13 mg/dL (9-16); Calcium 9.8 mg/dL (8.4-10.2); Carbon Dioxide 27 mmol/L (22-29); Chloride 100 mmol/L (96-108); Estimated Glomerular Filt Rate > 60; Iron 48 mcg/dL (30-160); Percent Iron Saturation 14 % (15-50); Potassium 4.2 mmol/L (3.3-5.1); Sodium 138 mmol/L (135-145); Total Iron Binding Capacity 351 mcg/dL (228-428); Unsaturated Iron Binding 303 ug/dL; Uric Acid 5.8 mg/dL (2.4-5.7)
[2022-11-30 11:22] LABS: Vitamin D 25-OH Total 27.7 ng/mL (>30)
[2022-11-30 11:31] LABS: Creatinine Urine 131.21 mg/dL; Protein/Creatinine Ratio, Ur 0.45 (<0.2); Total Protein Urine Random 59 mg/dL (<12)
[2022-12-03 15:17] LABS: Calcium (PTHI) 10.1 mg/dL (8.6-10.4); PTHI 24 pg/mL (16-77)
== END 2022-11-30 09:37 | disposition home or self-care (01) ==
LOC: HO.LAB 09:36
PROVIDERS: Visit Provider Internal Medicine Nephrology
DX: I12.9 Hypertensive chronic kidney disease with stage 1 through stage 4 chronic kidney disease, or unspecified chronic kidney disease (principal); E11.22 Type 2 diabetes mellitus with diabetic chronic kidney disease; N18.2 Chronic kidney disease, stage 2 (mild); N20.0 Calculus of kidney; N28.1 Cyst of kidney, acquired
CPT/HCPCS: 36415; 80051; 82306; 82310; 82565; 83540; 83970; 84156; 84520; 84550

== ENCOUNTER 2022-12-24 13:46 | Outpatient (REF) | payer OTHER, SELFPAY ==
--- NOTE | ~2022-12-24 | XR_ITS ---
EXAMINATION: XR CERVICAL SPINE CLINICAL INFORMATION: Cervicalgia. COMPARISON: X-ray cervical spine 09/17/2017. TECHNIQUE: 3 views of the cervical spine were obtained. FINDINGS: No evidence of acute compression deformity or traumatic subluxation with the caveat that the vertebral bodies are only identified to the level of C6 on the lateral view due to shadowing from overlying shoulders. Mild intervertebral disc height loss and uncovertebral hypertrophy in the mid to lower cervical spine. Small anterior osteophytes. No prevertebral soft tissue thickening. Included portions of the lung apices are clear. XR/XR cervical spine 2V IMPRESSION: 1. No evidence of acute compression deformity or traumatic subluxation. If pain persists, consider further evaluation with a CT or MR of the cervical spine. 2. Mild cervical spondylosis.
--- NOTE | ~2022-12-24 | XR_ITS ---
X-ray left shoulder and left scapula CLINICAL HISTORY: Pain. COMPARISON: Radiograph of the left shoulder 08/11/2021. TECHNIQUE: 4 views of the left shoulder and 2 views of the left scapula. FINDINGS: No evidence of acute fractures or malalignment. Mild degenerative osteoarthritis of the acromioclavicular joint. Decrease acromiohumeral interval. No abnormal soft tissue calcifications. Included portion of the left-sided ribs and left lung are within normal limits. XR/XR scapula LT IMPRESSION: 1. No acute fractures or malalignment. 2. Mild degenerative osteoarthritis of the acromioclavicular joint. 3. Decreased acromiohumeral interval suggesting rotator cuff disease. Recommend correlation with an MRI of the left shoulder.
--- NOTE | ~2022-12-24 | XR_ITS ---
X-ray left shoulder and left scapula CLINICAL HISTORY: Pain. COMPARISON: Radiograph of the left shoulder 08/11/2021. TECHNIQUE: 4 views of the left shoulder and 2 views of the left scapula. FINDINGS: No evidence of acute fractures or malalignment. Mild degenerative osteoarthritis of the acromioclavicular joint. Decrease acromiohumeral interval. No abnormal soft tissue calcifications. Included portion of the left-sided ribs and left lung are within normal limits. XR/XR shoulder LT min 2V IMPRESSION: 1. No acute fractures or malalignment. 2. Mild degenerative osteoarthritis of the acromioclavicular joint. 3. Decreased acromiohumeral interval suggesting rotator cuff disease. Recommend correlation with an MRI of the left shoulder.
== END 2022-12-24 13:47 | disposition home or self-care (01) ==
LOC: HO.XRAY 13:46
PROVIDERS: PCP Internal Medicine; Visit Provider Internal Medicine
DX: M25.512 Pain in left shoulder (principal); M89.8X1 Other specified disorders of bone, shoulder; M54.2 Cervicalgia
CPT/HCPCS: 72040; 73010; 73030

== ENCOUNTER → 2022-12-26 10:39 | Outpatient (BNVA) | payer OTHER, SELFPAY | PROVIDERS: PCP Internal Medicine; Visit Provider Orthopaedic Surgery | DX: M65.331 Trigger finger, right middle finger (principal); M25.641 Stiffness of right hand, not elsewhere classified; M06.9 Rheumatoid arthritis, unspecified; M85.80 Other specified disorders of bone density and structure, unspecified site; E11.65 Type 2 diabetes mellitus with hyperglycemia | CPT/HCPCS: 20550; 99212; J1100 ==

== ENCOUNTER 2023-01-21 09:42 | Outpatient (REF) | payer OTHER, SELFPAY ==
--- NOTE | ~2023-01-21 | CT_ITS ---
EXAMINATION: CT ABDOMEN AND PELVIS WITHOUT CONTRAST CLINICAL INFORMATION: COMPARISON: Previous CT of the abdomen and pelvis July 2021 TECHNIQUE: Multidetector volumetric imaging was performed from the superior aspect of the liver through the pubic symphysis. Sagittal and coronal reformatted images were obtained on the technologist's workstation. This CT examination was performed using dose optimization techniques as appropriate, variously including the following: *Automated exposure control *Adjustment of mA and/or kV according to patient size (this includes techniques or standardized protocols for targeted exams where dose is matched to indication/reason for exam; i.e. extremities or head) *Use of iterative reconstruction technique DLP: 664 mGy-cm FINDINGS: LUNG BASES: The visualized lung bases are unremarkable. LIVER, GALLBLADDER, AND BILIARY TREE: The liver is normal in size and shape. Question mild fatty infiltration. No focal liver lesion. The gallbladder is been removed. No intrahepatic biliary duct dilatation. Mild common bile duct dilatation measuring up to 1.5 cm. This is slightly increased from previous exam. PANCREAS: Unremarkable. SPLEEN: Unremarkable. ADRENAL GLANDS: Unremarkable. KIDNEYS AND URETERS: There is high attenuation seen centrally in the right kidney and wall scattered 1 mm discrete stones suggestive of medullary nephrocalcinosis. There are right renal cortical and peripelvic cysts. Largest cyst is a cortical cyst in the upper pole measuring 4 cm. There are multiple left renal stones. Largest stone is irregularly-shaped approximately 1 x 1.5 cm stone in the upper pole. This may form a cast in the upper pole calyx. There is an adjacent cystic structure with wall calcification in the posterior upper pole questionable for a cyst versus calyceal diverticulum. This is similar to previous exams. There are several smaller 1 to 2 mm left upper pole renal stones. There are cysts in the mid and lower pole of the left kidney largest measuring 9 cm. There is some wall calcification. There are 2 additional smaller 2 cm left lower pole cyst. No hydronephrosis, ureteral dilatation or ureteral stone. BLADDER: Not optimally distended. GASTROINTESTINAL TRACT: There is diverticulosis of the colon. Small and large bowel is otherwise normal. The appendix is normal. ABDOMINAL WALL: No significant hernia is appreciated. LYMPH NODES: Normal. VASCULAR: Unremarkable. PELVIC VISCERA: Uterus appears to have been removed. No pelvic mass. OSSEOUS STRUCTURES: Unremarkable. 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 Larger stone question forming a cast the upper pole calyx measuring 1 x 1.5 cm. Adjacent cystic structure with wall calcification question representing a cyst versus calyceal diverticulum with stones. Appears similar to previous exam. Smaller 1 to 2 mm left upper pole renal stones. Bilateral renal cysts. No imaging follow-up of renal cyst recommended. Diverticulosis of the colon. Fleischner guidelines were followed.
== END 2023-01-21 09:43 | disposition home or self-care (01) ==
LOC: HO.CT 09:42
PROVIDERS: PCP Internal Medicine; Visit Provider Urology
DX: N20.0 Calculus of kidney (principal)
CPT/HCPCS: 74176

== ENCOUNTER 2023-01-24 14:43 | Outpatient (REF) | payer OTHER, SELFPAY ==
--- NOTE | ~2023-01-24 | XR_ITS ---
EXAMINATION: XR FOOT, RIGHT CLINICAL INFORMATION: Right foot pain COMPARISON: 11/01/2021 TECHNIQUE: AP, lateral, and oblique views of the right foot. FINDINGS: Large plantar and moderate dorsal calcaneal spurs. Vascular calcifications. Joint spaces are preserved. No displaced fracture. The bones are diffusely demineralized. XR/XR foot RT 2V IMPRESSION: Large plantar and moderate dorsal calcaneal spurs. No displaced fracture. Recommend follow-up imaging in 10-14 days if fracture is suspected.
== END 2023-01-24 14:44 | disposition home or self-care (01) ==
LOC: HO.XRAY 14:43
PROVIDERS: PCP Internal Medicine; Visit Provider Internal Medicine
DX: M79.671 Pain in right foot (principal)
CPT/HCPCS: 73620

== ENCOUNTER 2023-02-08 10:00 | Outpatient (RCR) | payer OTHER, SELFPAY | END 2023-03-28 09:05 | disposition home or self-care (01) | LOC: HO.PT 10:00 | PROVIDERS: PCP Internal Medicine; Visit Provider Podiatrist Foot Surgery | DX: M72.2 Plantar fascial fibromatosis (principal); M76.71 Peroneal tendinitis, right leg; M76.821 Posterior tibial tendinitis, right leg | CPT/HCPCS: 97035; 97110; 97140; 97162 ==

== ENCOUNTER 2023-02-14 10:26 | Outpatient (AMB) | payer OTHER, SELFPAY ==
--- NOTE | 2023-02-14 08:18 | MHC.OFFVIS ---
Intake Intake Visit Reasons: Renal calculi-follow up/ct(?)/[facility] Intake Note: Patient presents today for a follow-up on Meds- Vitmin B6 & Ursodiol Allergies to Antibiotic- None Blood Thinner- None PVR- 39 ml Ply Cutter Required: No Accompanied by: Self / Same As Patient Allergies atorvastatin Allergy (Intermediate, Verified 02/14/23 10:40) elevated liver enzymes, elevated enzymes duloxetine [Cymbalta] Allergy (Intermediate, Verified 02/14/23 10:40) headache dapagliflozin [From Farxiga] Adverse Reaction (Intermediate, Verified 02/14/23 10:40) Dizziness HPI HPI Comments History of Present Illness Details Kandice is a 62-year-old female who presents to the office for discussion of CT abdomen and pelvis results. 02/14/23-- The patient is a Somali speaking female with history of nephrolithiasis. certified underwear cutter was present during the visit. She was last seen on 11/26/22. She states that she has a history of uric acid stones. She has been prescribed Vitamin B6 and potassium citrate in the past. States that she was told by her PCP to stop the potassium citrate since September. She is currently on Vitamin B6 100 mg. She has had previous 4 ESWL procedures in the past. She had a renal US--10/29/22-- bilateral renal cysts and stones. 24-hour urine was ordered and the [facility] lab states that they have not received the urine specimen. She states she completed urine test. The patient denies flank pain in the interim. CTAP results reviewed?01/21/23-- bilateral renal cysts with more on the left side. Multiple left renal stones, largest stone is 1 x 1.5 cm in the left upper pole. Evaluation today: UA: Blood-- 25 Dominic/uL, leukocytes: 70 Keo/uL. Bladder scan PVR: 39 mL. Plan: Will wait for 24-hour urine results, if not received then will reorder. Will correspond with PCP regarding contraindications for potassium citrate use in this patient. Continue vitamin B6 100 mg. [facility] Medical History Arthropathy of knee Chronic GERD Diabetes mellitus, type II Diabetes type 2, uncontrolled Elevated LFTs Essential hypertension Fatty liver Hyperlipidemia LDL goal <100 Iron deficiency anemia Left foot pain Left shoulder pain Metatarsalgia Mild major depression, single episode Morbid obesity with BMI of 40.0-44.9, adult Obesity due to excess calories Osteopenia Polyarthralgia Postmenopausal Proteinuria Pure hypercholesterolemia Renal calculus, bilateral Renal cyst Right foot pain Spondylosis, cervical Thyroid nodule Type 2 diabetes mellitus with other diabetic kidney complication Venous thrombosis of upper extremity Vitamin D deficiency Surgical History H/O colonoscopy History of cholecystectomy History of extraction of renal calculus History of removal of cyst History of shoulder surgery History of total abdominal hysterectomy and bilateral salpingo-oophorectomy Status post rotator cuff repair Family History Father Stomach cancer Liver cancer Mother Myocardial infarct Diabetes CVD (cardiovascular disease) Sister Cervical cancer Brother Murder Social History Household Members: Children Housing: House Alcohol intake: never Patient Tobacco Use Status: Never used Tobacco e-Cigarette/Vaping Use: Never Used Second Hand Smoke Exposure: No service: No Current occupational status: disabled Current occupation: right handed Cognitive needs: Yes (Pt use a cane) Hearing needs: No Vision needs: No Review of Systems Const All systems reviewed & are unremarkable except as noted in HPI and below Reports no additional complaints Eyes Reports no additional complaints ENT Reports no additional complaints Card Denies dyspnea Resp Denies cough and Denies dyspnea GI Reports no additional complaints Reports no additional complaints Musc Reports no additional complaints Skin/Breast Denies rash and Denies unusual bruising Neuro Reports no additional complaints Psych Reports no additional complaints Endo Reports no additional complaints Luis Manuel/Lymph Reports no additional complaints Aller/Immun Reports no additional complaints Physical Exam Const General: cooperative, healthy appearing and no acute distress Orientation/consciousness: patient oriented x3 HEENT Head: Yes normal to inspection, Yes normocephalic and Yes atraumatic Eyes Conjunctivae: conjunctivae normal Neck Neck: Yes normal visual inspection and Yes trachea midline Chest Chest palpation & inspection: normal inspection of the chest Resp Effort & Inspection: normal respiratory effort GI Inspection: Yes normal to inspection Skin General skin exam: no rashes or lesions noted Neuro General: patient oriented x3 Psych Appearance: grossly normal Office Procedures Post Void Residual Post Residual Void Post Void Residual (PVR): 39 [id number] Void Residual by ultrasound Results AMB Urinalysis, Automated UA Leukoctes 70 Keo/uL Last Edit by Amarilys Villa [facility] on 02/14/23 11:11 1+ Amarilys Villa 02/14/23 11:11 UA Nitrite Negative Last Edit by Amarilys Villa [facility] on 02/14/23 11:11 UA Urobilinogen 0.2 mg/dL Last Edit by Amarilys Villa [facility] on 02/14/23 11:11 UA Protein 100 mg/dL Last Edit by Amarilys Villa [facility] on 02/14/23 11:11 2+ Amarilys Villa 02/14/23 11:11 UA pH 5.5 Last Edit by Amarilys Vlila [facility] on 02/14/23 11:11 UA Blood 25 Dominic/uL Last Edit by Amarilys Villa [facility] on 02/14/23 11:11 1+ Amarilys Villa 02/14/23 11:11 UA Specific [place] 1.025 Last Edit by Amarilys Villa [facility] on 02/14/23 11:11 UA Ketone Negative Last Edit by Amarilys Villa [facility] on 02/14/23 11:11 UA Bilirubin 0 mg/dL Last Edit by Amarilys Villa [facility] on 02/14/23 11:11 UA Glucose 0 mg/dL Last Edit by Amarilys Villa [facility] on 02/14/23 11:11 Results Reviewed Results Reviewed: Laboratory Last Values Urine pH (Auto) 5.5 02/14/23 10:40 Specific [place] (Auto) 1.025 02/14/23 10:40 Urine Protein (Auto) 100 mg/dL 02/14/23 10:40 Glucose (UA)(Auto) 0 mg/dL 02/14/23 10:40 Urine Ketones (Auto) Negative 02/14/23 10:40 Urine Blood (Auto) 25 Dominic/uL 02/14/23 10:40 Urine Nitrite (Auto) Negative 02/14/23 10:40 Urine Bilirubin (Auto) 0 mg/dL 02/14/23 10:40 Urine Urobilinogen (Auto) 0.2 mg/dL 02/14/23 10:40 Leukocyte Esterase (Auto) 70 Keo/uL 02/14/23 10:40 Date of Service: 01/21/23 EXAMINATION: CT ABDOMEN AND PELVIS WITHOUT CONTRAST CLINICAL INFORMATION: COMPARISON: Previous CT of the abdomen and pelvis July 2021 TECHNIQUE: Multidetector volumetric imaging was performed from the superior aspect of the liver through the pubic symphysis. Sagittal and coronal reformatted images were obtained on the technologist's workstation. This CT examination was performed using dose optimization techniques as appropriate, variously including the following: *Automated exposure control *Adjustment of mA and/or kV according to patient size (this includes techniques or standardized protocols for targeted exams where dose is matched to indication/reason for exam; i.e. extremities or head) *Use of iterative reconstruction technique DLP: 664 mGy-cm FINDINGS: LUNG BASES: The visualized lung bases are unremarkable. LIVER, GALLBLADDER, AND BILIARY TREE: The liver is normal in size and shape. Question mild fatty infiltration. No focal liver lesion. The gallbladder is been removed. No intrahepatic biliary duct dilatation. Mild common bile duct dilatation measuring up to 1.5 cm. This is slightly increased from previous exam. PANCREAS: Unremarkable. SPLEEN: Unremarkable. ADRENAL GLANDS: Unremarkable. KIDNEYS AND URETERS: There is high attenuation seen centrally in the right kidney and wall scattered 1 mm discrete stones suggestive of medullary nephrocalcinosis. There are right renal cortical and peripelvic cysts. Largest cyst is a cortical cyst in the upper pole measuring 4 cm. There are multiple left renal stones. Largest stone is irregularly-shaped approximately 1 x 1.5 cm stone in the upper pole. This may form a cast in the upper pole calyx. There is an adjacent cystic structure with wall calcification in the posterior upper pole questionable for a cyst versus calyceal diverticulum. This is similar to previous exams. There are several smaller 1 to 2 mm left upper pole renal stones. There are cysts in the mid and lower pole of the left kidney largest measuring 9 cm. There is some wall calcification. There are 2 additional smaller 2 cm left lower pole cyst. No hydronephrosis, ureteral dilatation or ureteral stone. BLADDER: Not optimally distended. GASTROINTESTINAL TRACT: There is diverticulosis of the colon. Small and large bowel is otherwise normal. The appendix is normal. ABDOMINAL WALL: No significant hernia is appreciated. LYMPH NODES: Normal. VASCULAR: Unremarkable. PELVIC VISCERA: Uterus appears to have been removed. No pelvic mass. OSSEOUS STRUCTURES: Unremarkable. 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 Larger stone question forming a cast the upper pole calyx measuring 1 x 1.5 cm. Adjacent cystic structure with wall calcification question representing a cyst versus calyceal diverticulum with stones. Appears similar to previous exam. Smaller 1 to 2 mm left upper pole renal stones. Bilateral renal cysts. No imaging follow-up of renal cyst recommended. Diverticulosis of the colon. Assessment & Plan Assessment & Plan (1) Renal cyst: Code(s): N28.1 - Cyst of kidney, acquired (2) Renal calculus, bilateral: Code(s): N20.0 - Calculus of kidney Plan Will wait for 24-hour urine results, if not received then will reorder. Continue vitamin B6 100 mg. Orders: Orders AMB Urinalysis Automated Today Z13.9 - Encounter for screening, unspecified AMB Post Void Residual by ultrasound Today N39.8 - Other specified disorders of urinary system Patient Instructions: The patient had an opportunity to ask questions regarding treatment plan. All questions were answered. Imaging, Laboratory studies and physical exam results were discussed and reviewed in detail. No major barriers to understanding were identified. The patient expressed understanding and agreement with the above treatment plan. The patient is aware they should contact our office by phone for worsening of their current condition or the appearance of new symptoms. Compliance is encouraged with any medications and followup testing that is ordered. It is a privilege to be allowed the opportunity to participate in the urologic care of your patient. If you have any questions or concerns regarding treatment for the above conditions please do not hesitate to contact me. The office telephone contact is [phone]. This note is constructed in part using voice recognition software. While every effort has been made to ensure accuracy cocoa bean roaster errors may have been included. Yours sincerely, Trudy Trevino MD Coding Level of Care Code Est Pt Level 4 (17514) Diagnoses Renal cyst N28.1 Renal calculus, bilateral N20.0 CPT Codes Post Residual Void - PVR CPT Code: 69458-Ycaf Void Residual by ultrasound ([id number]) Time Spent (min) 29
== END 2023-02-14 12:12 | disposition home or self-care (01) ==
PROVIDERS: PCP Internal Medicine; Visit Provider Urology
DX: N28.1 Cyst of kidney, acquired (principal); N20.0 Calculus of kidney
CPT/HCPCS: 99214

== ENCOUNTER → 2023-02-14 10:26 | Outpatient (BNVA) | payer OTHER, SELFPAY | PROVIDERS: PCP Internal Medicine; Visit Provider Urology | DX: N20.0 Calculus of kidney (principal); N28.1 Cyst of kidney, acquired | CPT/HCPCS: 51798; 99212 ==

== ENCOUNTER 2023-02-28 08:54 | Outpatient (AMB) | payer OTHER, SELFPAY ==
[2023-02-28 08:55] VITALS: BMI 38.4
--- NOTE | 2023-02-28 08:55 | MHC.OFFVIS ---
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 Patient reports b/l shoulder pain that radiates into her neck and down her arm. Occasional numbness in her hands. Her pain is intermittent. No previous tx to left shoulder. Hx of surgery to right shoulder. Finds little relief with topical cream. 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 She states she has intermittent pain in her bilateral shoulders which radiates from her neck down to her arm. She also c/o occasional numbness in her hands. She finds mild relief with topical relief. She has not had any previous treatment on her left shoulder. She has a history of right shoulder surgery. She has a history of diabetes. Her sugar level is currently controlled. REPLACED BY [facility] Medical History Arthropathy of knee Chronic GERD Diabetes mellitus, type II Diabetes type 2, uncontrolled Elevated LFTs Essential hypertension Fatty liver Hyperlipidemia LDL goal <100 Iron deficiency anemia Left foot pain Left shoulder pain Metatarsalgia Mild major depression, single episode Morbid obesity with BMI of 40.0-44.9, adult Obesity due to excess calories Osteopenia Polyarthralgia Postmenopausal Proteinuria Pure hypercholesterolemia Renal calculus, bilateral Renal cyst Right foot pain Spondylosis, cervical Thyroid nodule Type 2 diabetes mellitus with other diabetic kidney complication Venous thrombosis of upper extremity Vitamin D deficiency Surgical History H/O colonoscopy History of cholecystectomy History of extraction of renal calculus History of removal of cyst History of shoulder surgery History of total abdominal hysterectomy and bilateral salpingo-oophorectomy Status post rotator cuff repair Family History Father Stomach cancer Liver cancer Mother Myocardial infarct Diabetes CVD (cardiovascular disease) Sister Cervical cancer Brother Murder Social History Household Members: Children Housing: House Alcohol intake: never Patient Tobacco Use Status: Never used Tobacco e-Cigarette/Vaping Use: Never Used Second Hand Smoke Exposure: No service: No Current occupational status: disabled Current occupation: right handed Cognitive needs: Yes (Pt use a cane) Hearing needs: No Vision needs: No Review of Systems Const All systems reviewed & are unremarkable except as noted in HPI and below Physical Exam Vital Signs: BMI result Body Mass Index 38.4 Const General: cooperative, healthy appearing, comfortable, no acute distress, well developed and alert Orientation/consciousness: patient oriented x3 HEENT Head: Yes normal to inspection, Yes normocephalic and Yes atraumatic Eyes General: appearance normal, both eyes and all related structures Resp Effort & Inspection: normal respiratory effort and able to speak in complete sentences Cardio Rate: regular rate Peripheral pulses: Peripheral pulses 2+ throughout GI Palpation (GI): Soft to palpation Skin Lesions: no lesions Rashes: no rashes Neuro General: patient oriented x3 Extrem Other: Left shoulder normal to inspection. Tenderness over the bicipital groove and along the deltoid region of the shoulder. Forward flexion to 175, external rotation to 90, internal rotation to S1. 5/5 RTC strength. Positive Block. NVI. Office Procedures Joint Injection/Drain Joint Injection/Drain Primary Site: left shoulder Prep: site was prepped using aseptic technique, ethochloride spray was applied and injection warnings given Injected: 40 mg of, DepoMedrol, with 8 mL of, 1% plain lidocaine and in the subcromial space Approach Used: posterolateral Procedure: The patient tolerated the procedure well and there was some relief with the local anesthesia Coding 63537 - Glenohumeral/Tronchanteric Bursa/Intraarticular Procedure code (CPT) selection complete Results Reviewed Results Reviewed: 02/28/23 09:30 Lidocaine HCl 2 % MPF [Xylocaine 2 % MPF] 5 ml .ROUTE .STK-MED ONE methylPREDNISolone acetate [DEPO-MedroL] 40 mg .ROUTE .STK-MED ONE xrays of the left shoulder obtained on 12/24/22 IMPRESSION: 1. No acute fractures or malalignment. 2. Mild degenerative osteoarthritis of the acromioclavicular joint. 3. Decreased acromiohumeral interval suggesting rotator cuff disease. Recommend correlation with an MRI of the left shoulder. Assessment & Plan Assessment & Plan (1) Primary osteoarthritis, left shoulder: Code(s): M19.012 - Primary osteoarthritis, left shoulder (2) Tendinitis of left rotator cuff: Code(s): M75.82 - Other shoulder lesions, left shoulder Plan We discussed options today which include steroid injection. They did consent to move forward with the left shoulder injection, which was tolerated well. I recommended rest, ice and elevation and OTC anti-inflammatories PRN for discomfort. We also discussed their diabetes and the effect the steroid can have on their blood glucose levels; therefore, they will continue to monitor these very closely over the next 72 hours. If there are any concerns, they should report to the ED immediately. Orders: Orders PT Evaluation and Treatment Today M19.012 - Primary osteoarthritis, left shoulder, M75.82 - Other shoulder lesions, left shoulder Patient Instructions: Scribed for Vidal Chavez PA-C, by Corey Lam electromedical service engineer, on 02/28/2023 at 9:00 AM EST. Vidal Noriega PA-C, have personally reviewed and agree with the information entered by the scribe. Coding Level of Care Code New Pt Level 3 (58113) Diagnoses Primary osteoarthritis, left shoulder M19.012 Tendinitis of left rotator cuff M75.82 CPT Codes Coding - Joint 7: 23649 - Glenohumeral/Tronchanteric Bursa/Intraarticular ([id number])
== END 2023-02-28 09:44 | disposition home or self-care (01) ==
PROVIDERS: PCP Internal Medicine; Visit Provider Physician Assistant
DX: M19.012 Primary osteoarthritis, left shoulder (principal); M75.82 Other shoulder lesions, left shoulder
CPT/HCPCS: 20610; 99213

== ENCOUNTER → 2023-02-28 08:54 | Outpatient (BNVA) | payer OTHER, SELFPAY | PROVIDERS: PCP Internal Medicine; Visit Provider Physician Assistant | DX: M19.012 Primary osteoarthritis, left shoulder (principal); M75.82 Other shoulder lesions, left shoulder | CPT/HCPCS: 20610; 99212; J1020 ==

== ENCOUNTER 2023-03-20 08:25 | Outpatient (REF) | payer OTHER, SELFPAY ==
[2023-03-20 08:43] LABS: MANUAL DIFF FLAG NO
[2023-03-20 08:50] LABS: Basophils Percent Auto 0.3 % (0-2); Eosinophils Percent Auto 0.7 % (0-4); Hematocrit 42.2 % (37.0-47.0); Hemoglobin 13.9 g/dl (12.0-16.0); Imm Gran Abs Auto 0.01 X10*3/uL (0.00-0.03); Imm Gran Pct Auto 0.2 % (0.0-0.4); Lymphocytes Absolute Auto 2.3 X10*3/uL (1.2-4.9); Lymphocytes Percent Auto 38.6 % (20-40); Mean Corpuscular HGB Conc 32.9 g/dl (31.0-35.0); Mean Corpuscular Hemoglobin 29.6 pg (27.0-33.0); Mean Corpuscular Volume 89.8 fL (80.0-98.0); Monocytes Absolute Auto 0.3 X10*3/uL (0.1-1.2); Monocytes Percent Auto 4.6 % (2-11); Neutrophils Absolute Auto 3.3 x10*3/uL (2.0-8.3); Neutrophils Percent Auto 55.6 % (45-73); Platelet Count 185 X10*3/uL (160-400); Red Cell Distribution Width 13.2 % (11.0-16.0); White Blood Count 5.9 X10*3/uL (4.8-10.8)
[2023-03-20 09:54] LABS: Alanine Aminotransferase 58 U/L (0-31); Albumin Level 4.1 g/dL (3.5-5.0); Alkaline Phosphatase 101 U/L (39-117); Anion Gap 12 (12-20); Aspartate Amino Transferase 75 U/L (5-31); Bilirubin Total 0.4 mg/dL (0.0-1.0); Blood Urea Nitrogen 14 mg/dL (9-16); Calcium 9.7 mg/dL (8.4-10.2); Carbon Dioxide 27 mmol/L (22-29); Chloride 104 mmol/L (96-108); Cholesterol 290 mg/dL; Estimated Glomerular Filt Rate > 60; Glucose Fasting 168 mg/dL (60-99); HDL Cholesterol 60 mg/dL; Iron 67 mcg/dL (30-160); LDL Cholesterol Calculated 203 mg/dl; Percent Iron Saturation 20 % (15-50); Potassium 3.7 mmol/L (3.3-5.1); Sodium 139 mmol/L (135-145); Total Iron Binding Capacity 339 mcg/dL (228-428); Total Protein 7.6 g/dL (6.5-8.0); Triglycerides 139 mg/dL; Unsaturated Iron Binding 272 ug/dL; Uric Acid 5.1 mg/dL (2.4-5.7)
[2023-03-20 10:10] LABS: Vitamin D 25-OH Total 24.1 ng/mL (>30)
[2023-03-20 10:30] LABS: Folate 16.3 ng/mL (> or = 4.0); Vitamin B12 676 pg/mL (200-900)
[2023-03-20 11:09] LABS: Microalbum/Creatinine Ratio Ur 182.1 ug/mg cr
== END 2023-03-20 08:26 | disposition home or self-care (01) ==
LOC: HO.LAB 08:25
PROVIDERS: PCP Internal Medicine; Visit Provider Internal Medicine
DX: E55.9 Vitamin D deficiency, unspecified (principal); E53.8 Deficiency of other specified B group vitamins; M10.9 Gout, unspecified; E78.5 Hyperlipidemia, unspecified; D64.9 Anemia, unspecified; M25.50 Pain in unspecified joint; E11.65 Type 2 diabetes mellitus with hyperglycemia
CPT/HCPCS: 36415; 80053; 80061; 82043; 82306; 82607; 82746; 83540; 84550; 85025; 99212

== ENCOUNTER 2023-03-20 09:21 | Outpatient (AMB) | payer OTHER, SELFPAY ==
[2023-03-20 09:30] VITALS: BP 132/70; PULSE 84; TEMP 36.2; O2SAT 96; BMI 37.9
--- NOTE | 2023-03-20 09:30 | MHC.OFFVIS ---
Intake Vital Signs 03/20/23 09:30 Height 5 ft 1 in Weight 200 lb 9.93 oz BMI 37.9 BP 132/70 Blood Pressure Location Rt brachial Position Sitting Pulse 84 Pulse Source Pulse Oximeter Temp 97.1 F Temp Source Skin Pulse Oximetry (%) 96 Intake Visit Reasons: positive rheumatoid factor. Intake Note: Pt seen today for follow up, previously seen by Rosy. 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 Superintendent Meter Tests Required: Yes Superintendent Meter Tests Name: Chantell [id number] Information Interpreted: clinical only Accompanied by: Self / Same As Patient Allergies atorvastatin Allergy (Intermediate, Verified 03/20/23 09:32) elevated liver enzymes, elevated enzymes duloxetine [Cymbalta] Allergy (Intermediate, Verified 03/20/23 09:32) headache dapagliflozin [From [facility]] Adverse Reaction (Intermediate, Verified 03/20/23 09:32) Dizziness Medication List - Last Reconciled 03/20/23 by Tima Miller MD acetaminophen (Tylenol Extra Strength) 1,000 mg (2 x 500 mg) PO Q6H PRN 30 days alclometasone 0.05% appl topical BID PRN baclofen 10 mg PO BEDTIME PRN 30 days blood sugar diagnostic (FreeStyle Lite Strips) 3 times a day blood-glucose meter (FreeStyle Lite Meter kit) As directed 3x/day calcium carbonate 500 mg PO BID 30 days cholecalciferol (vitamin D3) 25 mcg PO DAILY diclofenac sodium 1% 2 grams topical BID PRN dulaglutide (Trulicity) 3 mg (0.5 mL) subcut QWEEK 90 days ferrous sulfate 325 mg PO DAILY ibuprofen 800 mg PO TID losartan 25 mg PO DAILY mecobalamin (vitamin B12) 1,000 mcg PO DAILY metformin 1,000 mg (2 x 500 mg) PO BID 90 days omeprazole 20 mg PO QAM PRN 90 days pyridoxine (vitamin B6) 100 mg PO DAILY 90 days repaglinide 1- 2 tabs prior to dinner PO daily; administer within 15 minutes of a meal or snack 30 days rosuvastatin 40 mg PO DAILY tramadol 50 mg PO BID PRN 30 days ursodiol 300 mg PO BID HPI HPI Comments History of Present Illness Details This is a 62-year-old female who presents for evaluation of multiple joint pain. She has history of a positive rheumatoid factor but was never diagnosed with rheumatoid arthritis. Also was diagnosed with fibromyalgia. Patient has history of trigger finger of her right 3rd finger. She had a steroid injection by hand surgery a month ago which according patient was helpful. She also received just shoulder injection by Orthopedics a few months ago which was helpful. Patient continues to have pain in her right 3rd MCP as well as her heels especially her left heel. She was referred to Podiatry but she mentions that day did not give her an appointment. [facility] Medical History Arthropathy of knee Chronic GERD Diabetes mellitus, type II Diabetes type 2, uncontrolled Elevated LFTs Essential hypertension Fatty liver Hyperlipidemia LDL goal <100 Iron deficiency anemia Left foot pain Left shoulder pain Metatarsalgia Mild major depression, single episode Morbid obesity with BMI of 40.0-44.9, adult Obesity due to excess calories Osteopenia Polyarthralgia Postmenopausal Proteinuria Pure hypercholesterolemia Renal calculus, bilateral Renal cyst Right foot pain Spondylosis, cervical Thyroid nodule Type 2 diabetes mellitus with other diabetic kidney complication Venous thrombosis of upper extremity Vitamin D deficiency Surgical History H/O colonoscopy History of cholecystectomy History of extraction of renal calculus History of removal of cyst History of shoulder surgery History of total abdominal hysterectomy and bilateral salpingo-oophorectomy Status post rotator cuff repair Family History Father Stomach cancer Liver cancer Mother Myocardial infarct Diabetes CVD (cardiovascular disease) Sister Cervical cancer Brother Murder Social History Household Members: Children Housing: House Alcohol intake: never Patient Tobacco Use Status: Never used Tobacco e-Cigarette/Vaping Use: Never Used Second Hand Smoke Exposure: No service: No Current occupational status: disabled Current occupation: right handed Cognitive needs: Yes (Pt use a cane) Hearing needs: No Vision needs: No Review of Systems Musc Reports back pain and Reports arthralgias Physical Exam Vital Signs: Last Vital Signs Temp 97.1 F 03/20/23 09:30 Pulse 84 03/20/23 09:30 BP 132/70 03/20/23 09:30 Pulse Ox 96 03/20/23 09:30 BMI result Body Mass Index 37.9 Const General: cooperative, healthy appearing and comfortable Nutritional Appearance: obese morbidly obese Orientation/consciousness: patient oriented x3 Limitations: no limitations HEENT Head: Yes normocephalic and Yes atraumatic Mouth: moist mucous membranes Resp Effort & Inspection: normal respiratory effort and able to speak in complete sentences Neuro General: patient oriented x3 Extrem Other: Right 3rd MCP tenderness and the dorsal and palmar aspect Negative MCP squeeze test bilateral No other swollen or tender joints Few fibromyalgia tender points Bilateral heel tenderness to palpation Negative MTP squeeze test bilaterally Results Reviewed Results Reviewed: Labs 2018 Rheumatoid factor 44 (<15) CCP negative Assessment & Plan Assessment & Plan (1) Polyarthralgia: Code(s): M25.50 - Pain in unspecified joint Plan: This is a 62-year-old female with multiple joint pain who presents for follow-up. The majority of patient's pain is in her right 3rd MCP, she has CV multiple trigger finger injections for her right 3rd finger with improvement. Last injection was done by hand surgery 02/24. She also is having bilateral heel pain, worse on the left. X-rays showed calcaneal spurs. Patient was referred to Podiatry but no appointment was given. She has a history of a positive rheumatoid factor but I do not see any signs of autoimmune rheumatic disease upon my evaluation. Advised patient to take Tylenol Arthritis as needed for joint pain, can use o Aleve sparingly as needed for joint pain Follow-up in 1 year or sooner if needed Plan I spent 15 minutes reviewing patient's chart, evaluating patient, counseling patient and documenting in the chart Coding Level of Care Code Est Pt Level 3 (87858) Diagnoses Polyarthralgia M25.50
== END 2023-03-20 10:08 | disposition home or self-care (01) ==
LOC: HO.RHE 09:21
PROVIDERS: PCP Internal Medicine; Visit Provider Student in an Organized Health Care Education/Training Program
DX: M25.50 Pain in unspecified joint (principal)
CPT/HCPCS: 99213

== ENCOUNTER 2023-04-01 07:48 | Outpatient (AMB) | payer OTHER, SELFPAY ==
--- NOTE | 2023-04-01 07:53 | A.OFFPC_ITS ---
Vital Signs 04/01/23 07:54 Height 5 ft 1 in Weight 200 lb BMI 37.8 BP 130/82 Blood Pressure Location Lt brachial Position Sitting Intake Visit Reasons: DM, HLD, HTN Intake Note: Patient here for a follow up DM, HLD, HTN Tube Tester Required: No Accompanied by: Self / Same As Patient Allergies atorvastatin Allergy (Intermediate, Verified 04/01/23 08:16) elevated liver enzymes, elevated enzymes duloxetine [Cymbalta] Allergy (Intermediate, Verified 04/01/23 08:16) headache dapagliflozin [From [facility]] Adverse Reaction (Intermediate, Verified 04/01/23 08:16) Dizziness Medication List - Last Reconciled 04/01/23 by Yoli Padilla MD acetaminophen (Tylenol Extra Strength) 1,000 mg (2 x 500 mg) PO Q6H PRN 30 days alclometasone 0.05% appl topical BID PRN baclofen 10 mg PO BEDTIME PRN 30 days blood sugar diagnostic (FreeStyle Lite Strips) 3 times a day blood-glucose meter (FreeStyle Lite Meter kit) As directed 3x/day calcium carbonate 500 mg PO BID 30 days cholecalciferol (vitamin D3) 25 mcg PO DAILY diclofenac sodium 1% 2 grams topical BID PRN dulaglutide (Trulicity) 3 mg (0.5 mL) subcut QWEEK 90 days ferrous sulfate 325 mg PO DAILY ibuprofen 800 mg PO TID losartan 25 mg PO DAILY mecobalamin (vitamin B12) 1,000 mcg PO DAILY metformin 1,000 mg (2 x 500 mg) PO BID 90 days omeprazole 20 mg PO QAM PRN 90 days pyridoxine (vitamin B6) 100 mg PO DAILY 90 days repaglinide 1- 2 tabs prior to dinner PO daily; administer within 15 minutes of a meal or snack 30 days rosuvastatin 40 mg PO DAILY tramadol 50 mg PO BID PRN 30 days ursodiol 300 mg PO BID Tobacco use date assessed: 11/27/22 Dental Screening Dental Screen Date: 04/01/23 Did you have a dental visit in the last 12 months?: Yes Did you have a dental problem in the last 6 months where you did not have access to dental care?: No Was dental information given to patient?: Patient has dentist HPI HPI Comments History of Present Illness Details This is a 62-year-old female with diabetes mellitus type 2, hyp ertension, hyperlipidemia, chronic GERD and moderate major depression that comes today for follow-up on her conditions. A1c not on goal and I will add Jardiance. Blood pressure stable. LDL not on goal and I will add Zetia. GERD stable with PPIs and this is follow by Gastroenterology. Depression is in remission. No chest pain or shortness of breath. [facility] Medical History (Updated 04/01/23 @ 08:28 by Yoli Padilla MD) Arthropathy of knee Chronic GERD Diabetes mellitus, type II Diabetes type 2, uncontrolled Elevated LFTs Essential hypertension Fatty liver Hyperlipidemia LDL goal <100 Iron deficiency anemia Left foot pain Left shoulder pain Metatarsalgia Mild major depression, single episode Morbid obesity with BMI of 40.0-44.9, adult Obesity due to excess calories Osteopenia Polyarthralgia Postmenopausal Proteinuria Pure hypercholesterolemia Renal calculus, bilateral Renal cyst Right foot pain Spondylosis, cervical Thyroid nodule Type 2 diabetes mellitus with other diabetic kidney complication Venous thrombosis of upper extremity Vitamin D deficiency Surgical History H/O colonoscopy History of cholecystectomy History of extraction of renal calculus History of removal of cyst History of shoulder surgery History of total abdominal hysterectomy and bilateral salpingo-oophorectomy Status post rotator cuff repair Family History Father Stomach cancer Liver cancer Mother Myocardial infarct Diabetes CVD (cardiovascular disease) Sister Cervical cancer Brother Murder Social History Household Members: Children Housing: House Alcohol intake: never Patient Tobacco Use Status: Never used Tobacco e-Cigarette/Vaping Use: Never Used Second Hand Smoke Exposure: No service: No Current occupational status: disabled Current occupation: right handed Cognitive needs: Yes (Pt use a cane) Hearing needs: No Vision needs: No Questionnaire Thrive Questionnaire Date Thrive assessed: 12/24/22 HENRIETTA-7 AMB Questionnaire HENRIETTA-7 Date HENRIETTA - 7 assessed: 12/24/22 Source: Developed by Drs. Ksotas Simeon, Mary Smith, Lb Barrett and colleagues, with an educational rachael from [employer].. Review of Systems Const All systems reviewed & are unremarkable except as noted in HPI and below Eyes Reports no additional complaints, Denies change in vision and Denies other visual disturbances Card Denies chest pain at rest, Denies chest pain with activity, Denies edema, Denies irregular heart rhythm, Denies claudication, Denies dyspnea, Denies dyspnea on exertion, Denies orthopnea, Denies paroxysmal nocturnal dyspnea and Denies slow heart rate Resp Denies cough, Denies dyspnea and Denies dyspnea on exertion GI Denies abdominal pain, Denies change in bowel habits, Denies excessive flatus, Denies nausea and Denies vomiting Denies urinary incontinence, Denies urinary hesitancy and Denies urinary urgency Musc Denies abnormal gait, Denies atrophy, Denies deformity and Denies limited range of motion Skin/Breast Denies bleeding lesions, Denies changing lesions and Denies rash Neuro Denies abnormal gait and Denies lack of coordination Physical exam (Primary Care) Vital Signs: Last Vital Signs BP 130/82 04/01/23 07:54 BMI result Body Mass Index 37.8 Tobacco/Smoking Status: Tobacco use Status Tobacco use date assessed 11/27/22 04/01/23 07:56 Patient Tobacco Use Status Never used Tobacco 04/01/23 07:56 e-Cigarette/Vaping Use Never Used 04/01/23 07:56 Thrive Assessment: Date of Thrive Assessment Date Thrive assessed 12/24/22 04/01/23 07:56 Eyes General: appearance normal, both eyes and all related structures Eyelids: Yes eyelids normal Conjunctivae: conjunctivae normal Neck Neck: Yes normal visual inspection and Yes supple Resp Effort & Inspection: normal respiratory effort Auscultation: clear to auscultation bilaterally Cardio Jugular venous distension: no JVD Rate: regular rate Rhythm: regular rhythm Heart sounds: S1 normal heart sound present and S2 normal heart sound present Extrem General: Yes full ROM Results AMB Hemoglobin A1c AMB Hemoglobin A1c 8.1 % Last Edit by ALFONSO Mims on 04/01/23 08:1 5 Assessment and Plan Assessment & Plan (1) Diabetes mellitus, type II: Code(s): E11.9 - Type 2 diabetes mellitus without complications Plan: Continue Trulicity and metformin. Continue repaglinide. Start Jardiance. A1c goal is equal or less than 7%. (2) MDD (major depressive disorder), recurrent episode, moderate: Code(s): F33.1 - Major depressive disorder, recurrent, moderate Plan: In remission. (3) Chronic GERD: Code(s): K21.9 - Gastro-esophageal reflux disease without esophagitis Plan: Continue PPIs (4) Hyperlipidemia LDL goal <70: Code(s): E78.5 - Hyperlipidemia, unspecified Plan: Continue statins. Start Zetia. LDL goal is less than 70. (5) Essential hypertension: Code(s): I10 - Essential (primary) hypertension Plan: Continue losartan. Blood pressure goal is equal or less than 130/80. Orders: Orders Lipid Panel 4 Months E78.5 - Hyperlipidemia, unspecified Microalbumin, Random (w Creat) 4 Months E11.9 - Type 2 diabetes mellitus without complications Vitamin D 25-OH Total 4 Months E55.9 - Vitamin D deficiency, unspecified Complete Blood Count Auto Diff 4 Months D64.9 - Anemia, unspecified IRON PROFILE 4 Months D64.9 - Anemia, unspecified Comprehensive [place]. Panel Fast 4 Months E11.9 - Type 2 diabetes mellitus without complications Lipoprotein A 4 Months E78.5 - Hyperlipidemia, unspecified Lipoprotein Asso Phospholip A2 4 Months E78.5 - Hyperlipidemia, unspecified Apolipoprotein B 4 Months E78.5 - Hyperlipidemia, unspecified AMB Hemoglobin A1c Today E11.65 - Type 2 diabetes mellitus with hyperglycemia Medications: New ezetimibe 10 mg PO DAILY 90 days 90 tabs 1RF empagliflozin (Jardiance) 10 mg PO DAILY 90 days 90 tabs 1RF Coding Level of Care Code Est Pt Level 4 (28346) Diagnoses Diabetes mellitus, type II E11.9 MDD (major depressive disorder), recurrent episode, moderate F33.1 Chronic GERD K21.9 Hyperlipidemia LDL goal <70 E78.5 Essential hypertension I10 Time Spent (min) 23
[2023-04-01 07:54] VITALS: BP 130/82; BMI 37.8
== END 2023-04-01 08:25 | disposition home or self-care (01) ==
PROVIDERS: Visit Provider Internal Medicine
DX: E11.65 Type 2 diabetes mellitus with hyperglycemia (principal); K21.9 Gastro-esophageal reflux disease without esophagitis; F33.1 Major depressive disorder, recurrent, moderate; I10 Essential (primary) hypertension; E78.5 Hyperlipidemia, unspecified
CPT/HCPCS: 83036; 99214

== ENCOUNTER 2023-04-11 07:38 | Outpatient (REF) | payer OTHER, SELFPAY ==
--- NOTE | ~2023-04-11 | MM_ITS ---
EXAMINATION: MM SCREENING DIGITAL BREAST TOMOSYNTHESIS, BILATERAL CLINICAL INFORMATION: Screening. Asymptomatic. COMPARISON: Mammography: 04/06/2022, 04/17/2021, 03/31/2021, 08/17/2019, 08/15/2018, and dating back to 2013. TECHNIQUE: Digital breast tomosynthesis is performed in both the craniocaudal and mediolateral oblique views along with computer-aided detection (CAD). Synthesized 2D images are generated from the tomosynthesis. FINDINGS: There are scattered areas of fibroglandular density (ACR BI-RADS breast composition Category b). There are benign dystrophic calcifications in both breasts, as well as early vascular calcifications. There are no suspicious masses, suspicious grouped calcifications, or areas of architectural distortion. The parenchymal pattern is stable from prior exams. MM/MM tomosynthesis screening BI IMPRESSION: No mammographic evidence of malignancy. ASSESSMENT: BI-RADS BI-RADS 2 - Benign Findings RECOMMENDATION: Routine annual mammography screening. 1 year F/U This examination should not preclude the clinical evaluation of a suspicious palpable abnormality. This patient's information was entered into a reminder system with a target due date for their next mammogram.
== END 2023-04-11 07:39 | disposition home or self-care (01) ==
LOC: HO.MAMMO 07:38
PROVIDERS: PCP Internal Medicine; Visit Provider Internal Medicine
DX: Z12.31 Encounter for screening mammogram for malignant neoplasm of breast (principal)
CPT/HCPCS: 77063; 77067

== ENCOUNTER → 2023-04-11 08:30 | Outpatient (BNV) | payer OTHER, SELFPAY | PROVIDERS: PCP Internal Medicine; Visit Provider Radiology Diagnostic Radiology | DX: Z12.31 Encounter for screening mammogram for malignant neoplasm of breast (principal) | CPT/HCPCS: 77063; 77067 ==

== ENCOUNTER 2023-05-09 15:50 | Outpatient (AMB) | payer OTHER, SELFPAY ==
[2023-05-09 15:52] VITALS: BP 104/90; PULSE 104; O2SAT 98; BMI 36.8
--- NOTE | 2023-05-09 15:52 | MHC.PC.OV ---
Vital Signs 05/09/23 15:52 Height 5 ft 1 in Weight 195 lb BMI 36.8 BP 104/90 H Blood Pressure Location Lt brachial Position Sitting Pulse 104 H Pulse Source Pulse Oximeter Temp Source Skin Pulse Oximetry (%) 98 Oxygen Delivery Method Room Air Intake Visit Reasons: Pain LT arm radiated down to elbow area Intake Note: pt states left sided face/body pain X4days Farmer General Required: Yes Farmer General Language: Malawian Allergies atorvastatin Allergy (Intermediate, Verified 05/09/23 16:05) elevated liver enzymes, elevated enzymes duloxetine [Cymbalta] Allergy (Intermediate, Verified 05/09/23 16:05) headache dapagliflozin [From [facility]] Adverse Reaction (Intermediate, Verified 05/09/23 16:05) Dizziness Medication List - Last Reconciled 05/09/23 by SAUD Esposito acetaminophen (Tylenol Extra Strength) 1,000 mg (2 x 500 mg) PO Q6H PRN 30 days alclometasone 0.05% appl topical BID PRN baclofen 10 mg PO BEDTIME PRN 30 days blood sugar diagnostic (FreeStyle Lite Strips) 3 times a day blood-glucose meter (FreeStyle Lite Meter kit) As directed 3x/day calcium carbonate 500 mg PO BID 30 days cholecalciferol (vitamin D3) 25 mcg PO DAILY diclofenac sodium 1% 2 grams topical BID PRN dulaglutide (Trulicity) 3 mg (0.5 mL) subcut QWEEK 90 days empagliflozin (Jardiance) 10 mg PO DAILY 90 days ezetimibe 10 mg PO DAILY 90 days ferrous sulfate 325 mg PO DAILY fluconazole 150 mg PO Q3D 2 doses losartan 25 mg PO DAILY mecobalamin (vitamin B12) 1,000 mcg PO DAILY metformin 1,000 mg (2 x 500 mg) PO BID 90 days omeprazole 20 mg PO QAM PRN 90 days pyridoxine (vitamin B6) 100 mg PO DAILY 90 days repaglinide 1- 2 tabs prior to dinner PO daily; administer within 15 minutes of a meal or snack 30 days rosuvastatin 40 mg PO DAILY tramadol 50 mg PO BID PRN 30 days ursodiol 300 mg PO BID Tobacco use date assessed: 05/09/23 Dental Screening Dental Screen Date: 05/09/23 Did you have a dental visit in the last 12 months?: Yes Did you have a dental problem in the last 6 months where you did not have access to dental care?: No Was dental information given to patient?: Patient has dentist HPI Pain LT arm radiated down to elbow area HPI Details Patient is a 63-year-old female who presents today with left shoulder pain for the past 4 days, she also reports this pain in the past. Patient of Dr. Jason. Medical history significant for hypercholesterolemia, hypertension, diabetes among others. Patient reports pain starts in her left neck area and radiate down to her left wrist area and left upper back. She denies numbness or tingling. No extremity weakness. Reports history of right rotator cuff surgery in the past and she was told by that she might need to have surgery on her left shoulder in future. Left shoulder x-ray with arthritis and suggestive rotator cuff disease. Patient reports taking tramadol with some improvement in pain. In addition, patient reports left upper quadrant pain for the past 2 weeks, she also reports that fluid goes up to her throat, she reports that her omeprazole was stopped by some doctor because of kidney issues. No shortness of breath or chest pain. Denies left shoulder injury. Patient is a Malawian-speaking and JOSE Burciaga was helping with interpretation. 01/2023 XR/XR shoulder LT min 2V IMPRESSION: 1. No acute fractures or malalignment. 2. Mild degenerative osteoarthritis of the acromioclavicular joint. 3. Decreased acromiohumeral interval suggesting rotator cuff disease. Recommend correlation with an MRI of the left shoulder. [facility], [facility] Medical History Renal cyst Chronic GERD Polyarthralgia Left shoulder pain Right foot pain Renal calculus, bilateral Mild major depression, single episode Morbid obesity with BMI of 40.0-44.9, adult Diabetes type 2, uncontrolled Iron deficiency anemia Osteopenia Left foot pain Postmenopausal Vitamin D deficiency Elevated LFTs Thyroid nodule Type 2 diabetes mellitus with other diabetic kidney complication Proteinuria Hyperlipidemia LDL goal <100 Obesity due to excess calories Essential hypertension Pure hypercholesterolemia Venous thrombosis of upper extremity Diabetes mellitus, type II Spondylosis, cervical Fatty liver Metatarsalgia Arthropathy of knee Surgical History H/O colonoscopy History of extraction of renal calculus History of removal of cyst History of shoulder surgery History of cholecystectomy History of total abdominal hysterectomy and bilateral salpingo-oophorectomy Status post rotator cuff repair Family History Father Stomach cancer Liver cancer Mother Myocardial infarct Diabetes CVD (cardiovascular disease) Sister Cervical cancer Brother Murder Social History Household Members: Children Housing: House Alcohol intake: never Patient Tobacco Use Status: Never used Tobacco e-Cigarette/Vaping Use: Never Used Second Hand Smoke Exposure: No service: No Current occupational status: disabled Current occupation: right handed Cognitive needs: Yes (Pt use a cane) Hearing needs: No Vision needs: No Questionnaire Thrive Questionnaire Date Thrive assessed: 12/24/22 AUDIT C Alcohol Use Questionnaire (AUDIT-C) 1. How often do you have a drink containing alcohol?: Never Total Score: 0 Score Reviewed/Action Taken: No HENRIETTA-7 AMB Questionnaire HENRIETTA-7 Date HENRIETTA - 7 assessed: 05/09/23 Source: Developed by Drs. oKstas Simeon, Mary Smith, Lb Barrett and colleagues, with an educational rachael from [employer]. Review of Systems Const Denies body aches, Denies chills, Denies fever(s) and Denies headache(s) ENT Denies dizziness, Denies otalgia, Denies headache(s), Denies nasal discharge, Denies sinus pain and Denies sore throat Card Denies chest pain, Denies edema, Denies lightheadedness and Denies dyspnea Resp Denies dyspnea and Denies wheezing GI Reports abdominal pain, Denies constipation, Reports dyspepsia, Denies diarrhea, Denies nausea and Denies vomiting Denies dysuria Musc Denies myalgias, Reports arthralgias, Denies numbness and Denies tingling Skin/Breast Denies rash Neuro Denies dizziness, Denies headache(s), Denies numbness and Denies tingling Aller/Immun Denies wheezing Physical exam (Primary Care) Vital Signs: Last Vital Signs Pulse 104 H 05/09/23 15:52 BP 104/90 H 05/09/23 15:52 Pulse Ox 98 05/09/23 15:52 Oxygen Delivery Method Room Air 05/09/23 15:52 BMI result Body Mass Index 36.8 Tobacco/Smoking Status: Tobacco use Status Tobacco use date assessed 05/09/23 05/09/23 15:54 Patient Tobacco Use Status Never used Tobacco 05/09/23 15:54 e-Cigarette/Vaping Use Never Used 05/09/23 15:54 Thrive Assessment: Date of Thrive Assessment Date Thrive assessed 12/24/22 05/09/23 15:54 Const General: cooperative and no acute distress Orientation/consciousness: patient oriented x3 HENMT Head: Yes normocephalic and Yes atraumatic Ears: TM's normal bilaterally Face and sinus: Yes sinuses nontender Mouth: oropharynx normal and moist mucous membranes Throat: Yes posterior oropharynx normal Eyes General: appearance normal, both eyes and all related structures Pupils: Equal, round and reactive pupils present Neck Neck: Yes normal visual inspection, Yes full ROM and Yes no lymphadenopathy Resp Effort & Inspection: normal respiratory effort and able to speak in complete sentences Auscultation: clear to auscultation bilaterally, no crackles, no rales, no rhonchi and no wheezes Cardio Rate: regular rate Rhythm: regular rhythm Heart sounds: S1 normal heart sound present and S2 normal heart sound present GI Palpation (GI): Soft to palpation, not firm, Tenderness to palpation present (GI) in the LUQ; with no rebound tenderness, no guarding, not rigid and no hepatosplenomegaly Auscultation: normal bowel sounds Back/Spine/Pelvis Cervical Spine: cervical ROM normal, No cervical muscular tenderness and No Cervical spine tenderness Thoracic/Lumbar Spine: paraspinal muscle tenderness (Left thoracic aspect), No thoracic spinal tenderness and No lumbar spinal tenderness Skin General skin exam: no rashes or lesions noted Neuro General: patient oriented x3 Cranial nerves: Yes Equal, round and reactive pupils present Gait exam (Neuro): Normal gait present Extrem General: Yes full ROM and No edema Left upper extremity: shoulder/upper arm Details: inspection abnormal, tenderness (Posterior aspect) and abnormal ROM (Pain with range of motion); no swelling, no ecchymosis, no crepitus, no deformity and no unsual warmth Assessment and Plan Assessment & Plan (1) LUQ pain: Code(s): R10.12 - Left upper quadrant pain Plan: Patient reports left upper quadrant pain for the past 2 weeks, left upper quadrant with tenderness, no rebound tenderness Will order ultrasound (2) Left shoulder pain: Code(s): M25.512 - Pain in left shoulder Plan: Physical therapy referral Orthopedics referral Start ibuprofen 1 tablet every 8 hours as needed Refill sent on baclofen 1 tablet at bedtime p.r.n.-educated about drowsiness Patient is to continue tramadol p.r.n. as prescribed (3) Chronic GERD: Code(s): K21.9 - Gastro-esophageal reflux disease without esophagitis Plan: Patient is to start omeprazole 20 mg in the morning daily for 2 weeks Avoid GERD trigger foods Do not lay down 2-3 hours after evening meal Orders: Orders US abdomen limited Today R10.12 - Left upper quadrant pain PT Evaluation and Treatment Today M25.512 - Pain in left shoulder Referrals Orthopedics Referral M25.512 - Pain in left shoulder Medications: New ibuprofen 600 mg PO Q8H PRN 20 tabs 0RF pain M25.512 - Pain in left shoulder Refilled baclofen 10 mg PO BEDTIME 30 days PRN 14 tabs 0RF pain Coding Level of Care Code Est Pt Level 3 (24356) Diagnoses LUQ pain R10.12 Left shoulder pain M25.512 Chronic GERD K21.9
== END 2023-05-09 16:22 | disposition home or self-care (01) ==
PROVIDERS: PCP Internal Medicine; Visit Provider Nurse Practitioner Family
DX: M25.512 Pain in left shoulder (principal); R10.12 Left upper quadrant pain; K21.9 Gastro-esophageal reflux disease without esophagitis; E55.9 Vitamin D deficiency, unspecified
CPT/HCPCS: 99213

== ENCOUNTER 2023-05-30 09:47 | Outpatient (REF) | payer OTHER, SELFPAY ==
[2023-05-30 10:02] LABS: MANUAL DIFF FLAG NO
[2023-05-30 10:54] LABS: Basophils Percent Auto 0.2 % (0-2); Eosinophils Absolute Auto 0.1 X10*3/uL (0.0-0.4); Eosinophils Percent Auto 0.7 % (0-4); Hematocrit 45.6 % (37.0-47.0); Hemoglobin 14.9 g/dl (12.0-16.0); Imm Gran Abs Auto 0.02 X10*3/uL (0.00-0.03); Imm Gran Pct Auto 0.2 % (0.0-0.4); Lymphocytes Absolute Auto 3.2 X10*3/uL (1.2-4.9); Lymphocytes Percent Auto 37.6 % (20-40); Mean Corpuscular HGB Conc 32.7 g/dl (31.0-35.0); Mean Corpuscular Hemoglobin 29.1 pg (27.0-33.0); Mean Corpuscular Volume 89.1 fL (80.0-98.0); Mean Platelet Volume 10.1 fL (9.4-12.3); Monocytes Absolute Auto 0.5 X10*3/uL (0.1-1.2); Monocytes Percent Auto 6.3 % (2-11); Neutrophils Absolute Auto 4.6 x10*3/uL (2.0-8.3); Platelet Count 236 X10*3/uL (160-400); Red Blood Count 5.12 X10*6/uL (4.20-5.50); Red Cell Distribution Width 13.6 % (11.0-16.0); White Blood Count 8.4 X10*3/uL (4.8-10.8)
[2023-05-30 11:24] LABS: Alanine Aminotransferase 27 U/L (0-31); Albumin Level 4.5 g/dL (3.5-5.0); Alkaline Phosphatase 108 U/L (39-117); Aspartate Amino Transferase 26 U/L (5-31); Bilirubin Direct 0.2 mg/dL (0.0-0.5); Bilirubin Total 0.7 mg/dL (0.0-1.0); Total Protein 8.1 g/dL (6.5-8.0)
[2023-05-31 12:54] LABS: Alpha Fetoprotein 6.5 ng/mL
[2023-06-04 23:29] LABS: FIB-ALT 22 U/L (6-29); FIB-Alpha-2-Macroglobulin 251 mg/dL (106-279); FIB-Apolipoprotein A1 203 mg/dL (101-198); FIB-GGT 20 U/L (3-65); FIB-Haptoglobin 193 mg/dL (43-212); FIB-Total Bilirubin 0.5 mg/dL (0.2-1.2); Liver Fibrosis Score 0.14; Liver Fibrosis Stage F0; Nec Inflam Act Grade A0; Nec Inflam Act Score 0.07
== END 2023-05-30 09:48 | disposition home or self-care (01) ==
LOC: HO.LAB 09:47
PROVIDERS: PCP Internal Medicine; Visit Provider Internal Medicine
DX: K76.0 Fatty (change of) liver, not elsewhere classified (principal); R74.8 Abnormal levels of other serum enzymes; K74.00 Hepatic fibrosis, unspecified
CPT/HCPCS: 36415; 80076; 81596; 82105; 85025; 85610

== ENCOUNTER 2023-06-10 07:10 | Outpatient (REF) | payer OTHER, SELFPAY ==
--- NOTE | ~2023-06-10 | US_ITS ---
EXAMINATION: US ABDOMEN LIMITED CLINICAL INFORMATION: Left upper quadrant pain. COMPARISON: Ultrasound retroperitoneal limited 10/29/2022. CT abdomen and pelvis 01/21/2023 TECHNIQUE: Real-time imaging of the right upper quadrant abdominal viscera. FINDINGS: LEFT KIDNEY: Benign-appearing renal cysts measuring up to 10.9 cm. No follow-up imaging is recommended. No hydronephrosis. The kidney measures >13.7 cm in maximum dimension. Nonobstructing stones measuring up to 2.4 cm in the lower pole, previously 2 cm. SPLEEN: Normal. The spleen measures 10.8 cm in maximum dimension. FREE FLUID: None. US/US abdomen limited IMPRESSION: Nonobstructing left renal stones measuring up to 2.4 cm, increased in size from prior.
[2023-06-10 08:37] LABS: MANUAL DIFF FLAG NO
[2023-06-10 09:08] LABS: Basophils Percent Auto 0.5 % (0-2); Eosinophils Percent Auto 0.6 % (0-4); Hematocrit 44.8 % (37.0-47.0); Hemoglobin 14.8 g/dl (12.0-16.0); Imm Gran Abs Auto 0.02 X10*3/uL (0.00-0.03); Imm Gran Pct Auto 0.3 % (0.0-0.4); Lymphocytes Absolute Auto 2.5 X10*3/uL (1.2-4.9); Lymphocytes Percent Auto 40.2 % (20-40); Mean Corpuscular Hemoglobin 29.7 pg (27.0-33.0); Mean Corpuscular Volume 89.8 fL (80.0-98.0); Mean Platelet Volume 9.4 fL (9.4-12.3); Monocytes Absolute Auto 0.3 X10*3/uL (0.1-1.2); Monocytes Percent Auto 4.5 % (2-11); Neutrophils Absolute Auto 3.4 x10*3/uL (2.0-8.3); Neutrophils Percent Auto 53.9 % (45-73); Platelet Count 216 X10*3/uL (160-400); Red Blood Count 4.99 X10*6/uL (4.20-5.50); Red Cell Distribution Width 13.3 % (11.0-16.0); White Blood Count 6.3 X10*3/uL (4.8-10.8)
[2023-06-10 09:19] LABS: Estimated Average Glucose 174 mg/dL; Hemoglobin A1c % 7.7 % (<6.0)
[2023-06-10 09:37] LABS: Anion Gap 12 (12-20); Blood Urea Nitrogen 12 mg/dL (9-16); Calcium 9.9 mg/dL (8.4-10.2); Carbon Dioxide 27 mmol/L (22-29); Chloride 106 mmol/L (96-108); Estimated Glomerular Filt Rate > 60; Iron 87 mcg/dL (30-160); Percent Iron Saturation 25 % (15-50); Potassium 4.1 mmol/L (3.3-5.1); Sodium 141 mmol/L (135-145); Total Iron Binding Capacity 348 mcg/dL (228-428); Unsaturated Iron Binding 261 ug/dL; Uric Acid 4.5 mg/dL (2.4-5.7)
[2023-06-10 09:52] LABS: Vitamin D 25-OH Total 33.2 ng/mL (>30)
[2023-06-10 11:11] LABS: Creatinine Urine 83.19 mg/dL; Protein/Creatinine Ratio, Ur 0.42 (<0.2); Total Protein Urine Random 35 mg/dL (<12)
[2023-06-11 15:23] LABS: Calcium (PTHI) 9.9 mg/dL (8.6-10.4); PTHI 43 pg/mL (16-77)
== END 2023-06-10 07:11 | disposition home or self-care (01) ==
LOC: HO.US 07:10
PROVIDERS: Absent Provider Internal Medicine Nephrology; PCP Internal Medicine; Visit Provider Nurse Practitioner Family
DX: R10.12 Left upper quadrant pain (principal); N18.2 Chronic kidney disease, stage 2 (mild); N20.0 Calculus of kidney; N28.1 Cyst of kidney, acquired
CPT/HCPCS: 36415; 76705; 80051; 82306; 82310; 82565; 82570; 83036; 83540; 83970; 84156; 84520; 84550; 85025

== ENCOUNTER 2023-06-25 16:35 | Outpatient (REF) | payer OTHER, SELFPAY ==
--- NOTE | ~2023-06-25 | MR_ITS ---
EXAMINATION: MRI LEFT SHOULDER WITHOUT CONTRAST CLINICAL INFORMATION: Left shoulder pain. COMPARISON: Radiographs 12/24/2022. TECHNIQUE: MRI of the shoulder without contrast is performed on a 1.5 Sue high-field scanner. FINDINGS: ROTATOR CUFF: Supraspinatus tendinosis with an insertional tear anteriorly measuring 1.1 cm in AP dimension, the majority of which is full-thickness. Minimal undersurface tear at the superior-most subscapularis tendon insertion. The infraspinatus and teres minor tendons appear intact. No muscle atrophy or fatty infiltration. BICEPS: Normal. CORACOACROMIAL ARCH: The undersurface of the acromion is laterally downsloping with no subacromial spur. Mild acromioclavicular osteoarthritis. LABRUM/CAPSULE: No definite labral tear. GLENOHUMERAL JOINT/MARROW: Small degenerative cyst of the anterior superior humeral head and mild degenerative spurring of the greater tuberosity anteriorly. No significant joint effusion. ADDITIONAL FINDINGS: None. MR/MR shoulder LT wo con IMPRESSION: 1. Supraspinatus tendinosis with an insertional tear anteriorly measuring 1.1 cm in AP dimension, the majority of which is full-thickness. 2. Minimal undersurface partial tearing of the superior-most subscapularis tendon insertion. 3. Laterally downsloping acromion. Mild acromioclavicular and glenohumeral osteoarthritis.
== END 2023-06-25 16:36 | disposition home or self-care (01) ==
LOC: HO.MRI 16:35
PROVIDERS: PCP Internal Medicine; Visit Provider Physician Assistant
DX: S46.002A Unspecified injury of muscle(s) and tendon(s) of the rotator cuff of left shoulder, initial encounter (principal)
CPT/HCPCS: 73221

== ENCOUNTER 2023-07-15 08:48 | Outpatient (REF) | payer OTHER, SELFPAY ==
[2023-07-15 09:35] LABS: MANUAL DIFF FLAG NO
[2023-07-15 10:04] LABS: Basophils Percent Auto 0.3 % (0-2); Eosinophils Percent Auto 0.6 % (0-4); Hematocrit 49.6 % (37.0-47.0); Hemoglobin 15.8 g/dl (12.0-16.0); Imm Gran Abs Auto 0.02 X10*3/uL (0.00-0.03); Imm Gran Pct Auto 0.3 % (0.0-0.4); Lymphocytes Absolute Auto 3.2 X10*3/uL (1.2-4.9); Lymphocytes Percent Auto 44.9 % (20-40); Mean Corpuscular HGB Conc 31.9 g/dl (31.0-35.0); Mean Corpuscular Hemoglobin 28.8 pg (27.0-33.0); Mean Corpuscular Volume 90.3 fL (80.0-98.0); Mean Platelet Volume 9.7 fL (9.4-12.3); Monocytes Absolute Auto 0.4 X10*3/uL (0.1-1.2); Monocytes Percent Auto 5.2 % (2-11); Neutrophils Absolute Auto 3.5 x10*3/uL (2.0-8.3); Neutrophils Percent Auto 48.7 % (45-73); Platelet Count 242 X10*3/uL (160-400); Red Blood Count 5.49 X10*6/uL (4.20-5.50); Red Cell Distribution Width 13.2 % (11.0-16.0); White Blood Count 7.1 X10*3/uL (4.8-10.8)
[2023-07-15 11:05] LABS: Alanine Aminotransferase 35 U/L (0-31); Albumin Level 4.5 g/dL (3.5-5.0); Alkaline Phosphatase 119 U/L (39-117); Anion Gap 16 (12-20); Aspartate Amino Transferase 34 U/L (5-31); Bilirubin Total 0.5 mg/dL (0.0-1.0); Blood Urea Nitrogen 16 mg/dL (9-16); Calcium 10.3 mg/dL (8.4-10.2); Carbon Dioxide 24 mmol/L (22-29); Chloride 105 mmol/L (96-108); Cholesterol 252 mg/dL (<200); Estimated Glomerular Filt Rate > 60; Glucose Fasting 189 mg/dL (60-99); HDL Cholesterol 58 mg/dL (>40); Iron 74 mcg/dL (30-160); LDL Cholesterol Calculated 171 mg/dL (<100); Percent Iron Saturation 21 % (15-50); Sodium 141 mmol/L (135-145); Total Iron Binding Capacity 354 mcg/dL (228-428); Total Protein 8.4 g/dL (6.5-8.0); Triglycerides 116 mg/dL (<150); Unsaturated Iron Binding 280 ug/dL
[2023-07-15 11:09] LABS: Vitamin D 25-OH Total 37.7 ng/mL (>30)
[2023-07-15 12:46] LABS: Creatinine Urine 89.96 mg/dL; Microalbum/Creatinine Ratio Ur 266.7 ug/mg cr (<30)
[2023-07-17 20:34] LABS: Apolipoprotein B 143 mg/dL (<90)
[2023-07-20 10:14] LABS: Lipoprotein A 171 nmol/L (<75)
[2023-07-22 16:39] LABS: Lipoprotein Asso Phospholip A2 138 (<124)
== END 2023-07-15 08:49 | disposition home or self-care (01) ==
LOC: HO.LAB 08:48
PROVIDERS: PCP Internal Medicine; Visit Provider Internal Medicine
DX: E55.9 Vitamin D deficiency, unspecified (principal); E11.65 Type 2 diabetes mellitus with hyperglycemia; D64.9 Anemia, unspecified; M75.52 Bursitis of left shoulder; E78.5 Hyperlipidemia, unspecified
CPT/HCPCS: 36415; 80053; 80061; 82043; 82172; 82306; 82570; 83540; 83695; 83698; 85025; 99212

== ENCOUNTER 2023-07-15 09:42 | Outpatient (AMB) | payer OTHER, SELFPAY ==
[2023-07-15 09:47] VITALS: BMI 36.8
--- NOTE | 2023-07-15 09:47 | MHC.OFFVIS ---
Intake Vital Signs 07/15/23 09:47 Height 5 ft 1 in Weight 195 lb BMI 36.8 Intake Visit Reasons: ov- MRI Shoulder LT review Intake Note: Kandice is a 63 year old right hand dominant female who presents today for an MRI review of her left shoulder. [place] [facility] [place]ergies atorvastatin Allergy (Intermediate, Verified 05/09/23 16:05) elevated liver enzymes, elevated enzymes duloxetine [Cymbalta] Allergy (Intermediate, Verified 05/09/23 16:05) headache dapagliflozin [From [facility]] Adverse Reaction (Intermediate, Verified 05/09/23 16:05) Dizziness HPI ov- MRI Shoulder LT review HPI Details Kandice is a 63 year old Diabetic woman who presents for an MRI review of her left shoulder pain. She complains of pain in her left shoulder with daily activity, worse with overhead activity and at night. She received a steroid injection by ONOFRE Chavez on 02/28/23, with mild relief. Her shoulder pain has visits proving. She has been using Hesham-Hassan and feels okay. [facility] Medical History Renal cyst Chronic GERD Polyarthralgia Left shoulder pain Right foot pain Renal calculus, bilateral Mild major depression, single episode Morbid obesity with BMI of 40.0-44.9, adult Diabetes type 2, uncontrolled Iron deficiency anemia Osteopenia Left foot pain Postmenopausal Vitamin D deficiency Elevated LFTs Thyroid nodule Type 2 diabetes mellitus with other diabetic kidney complication Proteinuria Hyperlipidemia LDL goal <100 Obesity due to excess calories Essential hypertension Pure hypercholesterolemia Venous thrombosis of upper extremity Diabetes mellitus, type II Spondylosis, cervical Fatty liver Metatarsalgia Arthropathy of knee Surgical History H/O colonoscopy History of extraction of renal calculus History of removal of cyst History of shoulder surgery History of cholecystectomy History of total abdominal hysterectomy and bilateral salpingo-oophorectomy Status post rotator cuff repair Family History Father Stomach cancer Liver cancer Mother Myocardial infarct Diabetes CVD (cardiovascular disease) Sister Cervical cancer Brother Murder Social History Household Members: Children Housing: House Alcohol intake: never Patient Tobacco Use Status: Never used Tobacco e-Cigarette/Vaping Use: Never Used Second Hand Smoke Exposure: No service: No Current occupational status: disabled Current occupation: right handed Cognitive needs: Yes (Pt use a cane) Hearing needs: No Vision needs: No Review of Systems Const All systems reviewed & are unremarkable except as noted in HPI and below Physical Exam Vital Signs: BMI result Body Mass Index 36.8 Const General: no acute distress, alert and awake Orientation/consciousness: patient oriented x3 HEENT Head: Yes normocephalic and Yes atraumatic Eyes EOM: EOMs intact bilaterally Resp Effort & Inspection: normal respiratory effort and able to speak in complete sentences Cardio Jugular venous distension: no JVD Skin General skin exam: turgor normal Rashes: no rashes Neuro General: patient oriented x3 Extrem Other: 30/90/130 +H/N neg ec Psych Appearance: grossly normal Affect: normal affect Attitude: cooperative Results Reviewed Results Reviewed: I personally reviewed relevant MR images 1. Supraspinatus tendinosis with an insertional tear anteriorly measuring 1.1 cm in AP dimension, the majority of which is full-thickness. 2. Minimal undersurface partial tearing of the superior-most subscapularis tendon insertion. 3. Laterally downsloping acromion. Mild acromioclavicular and glenohumeral osteoarthritis. Assessment & Plan Assessment & Plan (1) Bursitis of left shoulder: Code(s): M75.52 - Bursitis of left shoulder Plan: Kandice is a 63-year-old woman with continued left shoulder pain. Her MRI shows tendinosis and a partial thickness articular sided tear of the supraspinatus. She is improving and I do not recommend surgical intervention at this time. She feels like physical therapy aggravates her injury and feels that her fibromyalgia contributes. She will continue using analgesic creams let me know there is any worsening of symptoms. Plan Scribed for Damian Kumari MD by Landon Pillai, electromedical service engineer, on 07/15/23 at 9:55 AM, EST. Coding Level of Care Code Est Pt Level 3 (47382) Diagnoses Bursitis of left shoulder M75.52
== END 2023-07-15 10:35 | disposition home or self-care (01) ==
PROVIDERS: PCP Internal Medicine; Visit Provider Orthopaedic Surgery
DX: M75.52 Bursitis of left shoulder (principal)
CPT/HCPCS: 99213

== ENCOUNTER 2023-07-17 07:13 | Outpatient (AMB) | payer OTHER, SELFPAY ==
--- NOTE | 2023-07-17 07:34 | A.OFFPC_ITS ---
Vital Signs 07/17/23 07:35 Height 5 ft 1 in Weight 197 lb BMI 37.2 BP 130/80 Blood Pressure Location Lt brachial Position Sitting Intake Visit Reasons: PE Intake Note: Patient here for a physical exam Cq Developer Required: No Accompanied by: Self / Same As Patient Allergies atorvastatin Allergy (Intermediate, Verified 07/17/23 07:54) elevated liver enzymes, elevated enzymes duloxetine [Cymbalta] Allergy (Intermediate, Verified 07/17/23 07:54) headache dapagliflozin [From [facility]] Adverse Reaction (Intermediate, Verified 07/17/23 07:54) Dizziness Medication List - Last Reconciled 07/17/23 by Yoli Padilla MD acetaminophen (Tylenol Extra Strength) 1,000 mg (2 x 500 mg) PO Q6H PRN 30 days alclometasone 0.05% appl topical BID PRN baclofen 10 mg PO BEDTIME PRN 30 days benzonatate 100 mg PO BID PRN 5 days blood sugar diagnostic (FreeStyle Lite Strips) 3 times a day blood-glucose meter (FreeStyle Lite Meter kit) As directed 3x/day calcium carbonate 500 mg PO BID 30 days cholecalciferol (vitamin D3) 25 mcg PO DAILY diclofenac sodium 1% 2 grams topical BID PRN dulaglutide (Trulicity) 3 mg (0.5 mL) subcut QWEEK 90 days empagliflozin (Jardiance) 10 mg PO DAILY 90 days ezetimibe 10 mg PO DAILY 90 days ferrous sulfate 325 mg PO DAILY fluconazole 150 mg PO Q3D 2 doses fluticasone propionate 50 mcg/actuation (Allergy Relief (fluticasone)) 1 spray intranasal DAILY PRN 30 days ibuprofen 600 mg PO Q8H PRN losartan 25 mg PO DAILY mecobalamin (vitamin B12) 1,000 mcg PO DAILY metformin 1,000 mg (2 x 500 mg) PO BID 90 days omeprazole 20 mg PO QAM PRN 90 days pyridoxine (vitamin B6) 100 mg PO DAILY 90 days repaglinide 1- 2 tabs prior to dinner PO daily; administer within 15 minutes of a meal or snack 30 days rosuvastatin 40 mg PO DAILY tramadol 50 mg PO BID PRN 30 days ursodiol 300 mg PO BID Tobacco use date assessed: 05/09/23 Dental Screening Dental Screen Date: 07/17/23 Did you have a dental visit in the last 12 months?: Yes Did you have a dental problem in the last 6 months where you did not have access to dental care?: No Was dental information given to patient?: Patient has dentist HPI HPI Comments History of Present Illness Details This is a 63-year-old female with diabetes mellitus type 2 and moderate major depression that comes for her physical exam. Last A1c was elevated and I will discontinue Trulicity and start her on all Ozempic. Depression is in remission. Diabetic eye exam is up today. Last mammogram was 2022. Last colonoscopy was 2021 and was normal. No need for Pap smears due to hysterectomy. No chest pain or shortness of breath. [facility] Medical History (Updated 07/17/23 @ 09:25 by Yoli Padilla MD) Renal cyst Chronic GERD Polyarthralgia Left shoulder pain Right foot pain Renal calculus, bilateral Mild major depression, single episode Morbid obesity with BMI of 40.0-44.9, adult Diabetes type 2, uncontrolled Iron deficiency anemia Osteopenia Left foot pain Postmenopausal Vitamin D deficiency Elevated LFTs Thyroid nodule Type 2 diabetes mellitus with other diabetic kidney complication Proteinuria Hyperlipidemia LDL goal <100 Obesity due to excess calories Essential hypertension Pure hypercholesterolemia Venous thrombosis of upper extremity Diabetes mellitus, type II Spondylosis, cervical Fatty liver Metatarsalgia Arthropathy of knee Surgical History H/O colonoscopy History of extraction of renal calculus History of removal of cyst History of shoulder surgery History of cholecystectomy History of total abdominal hysterectomy and bilateral salpingo-oophorectomy Status post rotator cuff repair Family History Father Stomach cancer Liver cancer Mother Myocardial infarct Diabetes CVD (cardiovascular disease) Sister Cervical cancer Brother Murder Social History Household Members: Children Housing: House Alcohol intake: never Patient Tobacco Use Status: Never used Tobacco e-Cigarette/Vaping Use: Never Used Second Hand Smoke Exposure: No service: No Current occupational status: disabled Current occupation: right handed Cognitive needs: Yes (Pt use a cane) Hearing needs: No Vision needs: No Questionnaire Thrive Questionnaire Date Thrive assessed: 12/24/22 HENRIETTA-7 AMB Questionnaire HENRIETTA-7 Date HENRIETTA - 7 assessed: 05/09/23 Source: Developed by Drs. Kostas Simeon, Mary Smith, Lb Barrett and colleagues, with an educational rachael from [employer]. Review of Systems Const All systems reviewed & are unremarkable except as noted in HPI and below Eyes Reports no additional complaints, Denies change in vision and Denies other visual disturbances Card Denies chest pain at rest, Denies chest pain with activity, Denies edema, Denies irregular heart rhythm, Denies claudication, Denies dyspnea, Denies dyspnea on exertion, Denies orthopnea, Denies paroxysmal nocturnal dyspnea and Denies slow heart rate Resp Denies cough, Denies dyspnea and Denies dyspnea on exertion GI Denies abdominal pain, Denies change in bowel habits, Denies excessive flatus, Denies nausea and Denies vomiting Denies urinary incontinence, Denies urinary hesitancy and Denies urinary urgency Musc Denies abnormal gait, Denies atrophy, Denies deformity and Denies limited range of motion Skin/Breast Denies bleeding lesions, Denies changing lesions and Denies rash Neuro Denies abnormal gait, Denies behavioral changes, Denies confusion and Denies lack of coordination Psych Denies behavioral changes and Denies confusion Physical exam (Primary Care) Vital Signs: Last Vital Signs BP 130/80 07/17/23 07:35 BMI result Body Mass Index 37.2 Tobacco/Smoking Status: Tobacco use Status Tobacco use date assessed 05/09/23 07/17/23 07:39 Patient Tobacco Use Status Never used Tobacco 07/17/23 07:39 e-Cigarette/Vaping Use Never Used 07/17/23 07:39 Thrive Assessment: Date of Thrive Assessment Date Thrive assessed 12/24/22 07/17/23 07:39 Const General: No confusion Orientation/consciousness: patient oriented x3 and No confusion HENMT Head: Yes normal to inspection, Yes normocephalic and Yes atraumatic Ears: external ears normal Eyes General: appearance normal, both eyes and all related structures Eyelids: Yes eyelids normal Conjunctivae: conjunctivae normal Neck Neck: Yes normal visual inspection and Yes supple Resp Effort & Inspection: normal respiratory effort Auscultation: clear to auscultation bilaterally Cardio Jugular venous distension: no JVD Rate: regular rate Rhythm: regular rhythm Heart sounds: S1 normal heart sound present and S2 normal heart sound present GI Inspection: Yes normal to inspection Palpation (GI): Soft to palpation and nontender Auscultation: normal bowel sounds Skin General skin exam: no rashes or lesions noted Neuro General: patient oriented x3, no focal motor deficits and No confusion Extrem General: Yes full ROM Psych Appearance: grossly normal Office Procedures Flu Questionnaire Does the patient have a severe egg allergy?: No Immunizations flu vacc [id number] 6mos up(PF) 60 mcg(15 mcgx4)/0.5 mL IM syringe Performing Provider: Yoli Padilla MD [facility] Documented (not given) by: ALFONSO Mims on 07/17/23 07:40 Reason Not Given: Patient Refused Assessment and Plan Assessment & Plan (1) Physical exam: Code(s): Z00.00 - Encounter for general adult medical examination without abnormal findings Plan: Repeat in a year. (2) MDD (major depressive disorder), recurrent episode, moderate: Code(s): F33.1 - Major depressive disorder, recurrent, moderate Plan: In remission. (3) Diabetes mellitus, type II: Code(s): E11.9 - Type 2 diabetes mellitus without complications Qualifiers: Diabetes mellitus longterm insulin use: without dedicated intermodal truck driver use Diabetes mellitus complication status: with hyperglycemia Qualified Code(s): E11.65 - Type 2 diabetes mellitus with hyperglycemia Plan: Increase Jardiance. Discontinue Trulicity. Start Ozempic. A1c goal is equal or less than 7%. Orders: Orders Influenza [id number] Immunization Today E11.9 - Type 2 diabetes mellitus without complications Comprehensive [place]. Panel Fast 6 Months E11.9 - Type 2 diabetes mellitus without complications Lipid Panel 6 Months E11.9 - Type 2 diabetes mellitus without complications, E78.5 - Hyperlipidemia, unspecified Microalbumin, Random (w Creat) 6 Months E11.9 - Type 2 diabetes mellitus without complications Vitamin B12 and Folate 6 Months E53.8 - Deficiency of other specified B group vitamins Vitamin D 25-OH Total 6 Months E55.9 - Vitamin D deficiency, unspecified Complete Blood Count Auto Diff 6 Months D64.9 - Anemia, unspecified IRON PROFILE 6 Months D64.9 - Anemia, unspecified Medications: New empagliflozin (Jardiance) 25 mg PO DAILY 90 tabs 1RF 90 days E11.9 - Type 2 diabetes mellitus without complications semaglutide (Ozempic) for 4 weeks 0.25 mg (0.368 mL) subcut QWEEK 1.472 mL 0RF 28 days E11.9 - Type 2 diabetes mellitus without complications Refilled ezetimibe 10 mg PO DAILY 90 tabs 1RF 90 days Discontinued empagliflozin (Jardiance) Discontinued Reason: Patient Completed Course 10 mg PO DAILY 90 days 90 tabs 1RF dulaglutide (Trulicity) Discontinued Reason: Patient Completed Course 3 mg (0.5 mL) subcut QWEEK 90 days 6.5 mL 1RF E11.65 - Type 2 diabetes mellitus with hyperglycemia Coding Level of Care Code Est Pt Prev Care 40-64y(27124) Diagnoses Physical exam Z00.00 MDD (major depressive disorder), recurrent episode, moderate F33.1 Type 2 diabetes mellitus with hyperglycemia, without long-term current use of insulin E11.65 Diabetes mellitus longterm insulin use: without longterm use Diabetes mellitus complication status: with hyperglycemia Time Spent (min) 34
[2023-07-17 07:35] VITALS: BP 130/80; BMI 37.2
== END 2023-07-17 08:06 | disposition home or self-care (01) ==
PROVIDERS: Visit Provider Internal Medicine
DX: Z00.00 Encounter for general adult medical examination without abnormal findings (principal); F33.1 Major depressive disorder, recurrent, moderate; E11.65 Type 2 diabetes mellitus with hyperglycemia; Z68.37 Body mass index [BMI] 37.0-37.9, adult
CPT/HCPCS: 99396

== ENCOUNTER 2023-08-13 11:23 | Outpatient (AMB) | payer OTHER, SELFPAY ==
--- NOTE | 2023-08-13 11:27 | A.OFFVIS_ITS ---
Intake Vital Signs 3 08/13/23 11:48 Height 5 ft 1 in Weight 199 lb 6 oz BMI 37.7 BP 134/80 Blood Pressure Location Lt brachial Position Sitting Pulse 97 Intake Visit Reasons: skin lesion Intake Note: Patient is seen in office for evaluation of a skin lesion. Patient c/o: lesion of the forehead, onset 3 month, itchy, denies redness, discharge, swelling or other concerns L.OV: 01/04/22 back mass Lift Manager Required: Yes Lift Manager Language: Dry Talc Racker Name: Ammy HAMILTON Information Interpreted: non-clinical & clinical High Value Associate: High Value Associate Present Accompanied by: Self / Same As Patient Allergies atorvastatin Allergy (Intermediate, Verified 08/13/23 11:40) elevated liver enzymes, elevated enzymes duloxetine [Cymbalta] Allergy (Intermediate, Verified 08/13/23 11:40) headache dapagliflozin [From [facility]] Adverse Reaction (Intermediate, Verified 08/13/23 11:40) Dizziness HPI HPI Comments 2 History of Present Illness0 Details 63-year-old female patient returning to the office for skin re- evaluation. She previously was noted to have a seborrheic keratosis of the back which she mainly complains of itchiness but denies any bleeding or discharge. She does not feel her symptoms have changed significantly since her last visit. She also notes a series of small bumps located in her left forehead which she would like to be checked. She looks at the lesions with a magnified mirror and is concerned about cancer developing. [facility] Medical History Renal cyst Chronic GERD Polyarthralgia Left shoulder pain Right foot pain Renal calculus, bilateral Mild major depression, single episode Morbid obesity with BMI of 40.0-44.9, adult Diabetes type 2, uncontrolled Iron deficiency anemia Osteopenia Left foot pain Postmenopausal Vitamin D deficiency Elevated LFTs Thyroid nodule Type 2 diabetes mellitus with other diabetic kidney complication Proteinuria Hyperlipidemia LDL goal <100 Obesity due to excess calories Essential hypertension Pure hypercholesterolemia Venous thrombosis of upper extremity Diabetes mellitus, type II Spondylosis, cervical Fatty liver Metatarsalgia Arthropathy of knee Surgical History H/O colonoscopy History of extraction of renal calculus History of removal of cyst History of shoulder surgery History of cholecystectomy History of total abdominal hysterectomy and bilateral salpingo-oophorectomy Status post rotator cuff repair Family History Father Stomach cancer Liver cancer Mother Myocardial infarct Diabetes CVD (cardiovascular disease) Sister Cervical cancer Brother Murder Social History Household Members: Children Housing: House Alcohol intake: never Patient Tobacco Use Status: Never used Tobacco e-Cigarette/Vaping Use: Never Used Second Hand Smoke Exposure: No service: No Current occupational status: disabled Current occupation: right handed Cognitive needs: Yes (Pt use a cane) Hearing needs: No Vision needs: No Review of Systems Const All systems reviewed & are unremarkable except as noted in HPI and below Denies chills, Denies fever(s), Denies headache(s) and Denies poor appetite ENT Denies dizziness and Denies headache(s) Card Denies chest pain, Denies rapid heart rate, Denies palpitations and Denies slow heart rate Resp Denies chest congestion, Denies cough, Denies pain on inspiration and Denies wheezing GI Denies abdominal pain, Denies bloating, Denies change in stool character, Denies constipation, Denies diarrhea, Denies nausea, Denies vomiting and Denies hematemesis Musc Denies back pain, Denies arthralgias, Denies joint swelling and Denies numbness Skin/Breast Reports as per HPI, Denies change in pigmentation, Denies erythema and Denies rash Neuro Denies dizziness, Denies headache(s) and Denies numbness Psych Denies anxiety and Denies depression Endo Denies palpitations Luis Manuel/Lymph Denies easy bleeding, Denies easy bruising and Denies lymphadenopathy Aller/Immun Denies wheezing Physical Exam Const General: cooperative, comfortable and well developed Nutritional Appearance: well nourished Orientation/consciousness: patient oriented x3 HEENT Head images: 2 1. Three 1 mm bumps in the skin, light brown without evidence of melanotic change, findings suggestive of a keratosis. No suspicious changes appreciated. Eyes Sclerae: sclerae normal EOM: EOMs intact bilaterally Neck Neck: Yes normal visual inspection Resp Effort & Inspection: normal respiratory effort, no cough, no respiratory distress and no stridor Cardio Jugular venous distension: no JVD GI Inspection: Yes normal to inspection Palpation (GI): Soft to palpation, nontender, no guarding and not rigid General: Yes no CVA tenderness Back/Spine/Pelvis Back: no CVA tenderness Back/spine/pelvis image: 2 1. Small black lesion on the surface of the skin suggestive of a seborrheic keratosis measuring approximately 4 mm in diameter. Skin Other: See back above General skin exam: dry skin Rashes: no rashes Neuro General: patient oriented x3 and no focal motor deficits Extrem General: Yes full ROM and Yes no clubbing, cyanosis or edema Psych Appearance: grossly normal Assessment & Plan Assessment & Plan (1) Seborrheic keratoses: Code(s): L82.1 - Other seborrheic keratosis Plan 63-year-old female patient returning for a skin check found to have 3 new seborrheic keratosis located in her left forehead. These are quite small and light in color. No surgical intervention is recommended at this time. She is welcome to call should the lesions change. Follow-up p.r.n.. Coding Level of Care Code Est Pt Level 3 (25689) Diagnoses Seborrheic keratoses L82.1
[2023-08-13 11:48] VITALS: BP 134/80; PULSE 97; BMI 37.7
== END 2023-08-13 11:53 | disposition home or self-care (01) ==
PROVIDERS: PCP Internal Medicine; Visit Provider Surgery
DX: L82.1 Other seborrheic keratosis (principal)
CPT/HCPCS: 99213

== ENCOUNTER → 2023-08-13 11:23 | Outpatient (BNVA) | payer OTHER, SELFPAY | PROVIDERS: PCP Internal Medicine; Visit Provider Surgery | DX: L82.1 Other seborrheic keratosis (principal) | CPT/HCPCS: 99212 ==

== ENCOUNTER 2023-08-27 10:10 | Outpatient (AMB) | payer OTHER, SELFPAY ==
[2023-08-27 10:16] VITALS: BP 126/80; PULSE 81; O2SAT 93; BMI 37.4
--- NOTE | 2023-08-27 10:16 | A.OFFPC_ITS ---
Vital Signs 08/27/23 10:16 Height 5 ft 1 in Weight 198 lb BMI 37.4 BP 126/80 Blood Pressure Location Lt brachial Position Sitting Pulse 81 Pulse Source Pulse Oximeter Pulse Oximetry (%) 93 Oxygen Delivery Method Room Air Intake Visit Reasons: right sided sciatica like pain Urologic Nurse: Not Required per policy Accompanied by: Self / Same As Patient Allergies atorvastatin Allergy (Intermediate, Verified 08/27/23 10:33) elevated liver enzymes, elevated enzymes duloxetine [Cymbalta] Allergy (Intermediate, Verified 08/27/23 10:33) headache dapagliflozin [From [facility]] Adverse Reaction (Intermediate, Verified 08/27/23 10:33) Dizziness Medication List - Last Reconciled 08/27/23 by Duncan Guillen PA-C acetaminophen (Tylenol Extra Strength) 1,000 mg (2 x 500 mg) PO Q6H PRN 30 days alclometasone 0.05% appl topical BID PRN baclofen 10 mg PO BEDTIME PRN 30 days benzonatate 100 mg PO BID PRN 5 days blood sugar diagnostic (FreeStyle Lite Strips) 3 times a day blood-glucose meter (FreeStyle Lite Meter kit) As directed 3x/day calcium carbonate 500 mg PO BID 30 days cholecalciferol (vitamin D3) 25 mcg PO DAILY diclofenac sodium 1% 2 grams topical BID PRN empagliflozin (Jardiance) 25 mg PO DAILY 90 days ezetimibe 10 mg PO DAILY 90 days fluconazole 150 mg PO Q3D 2 doses fluticasone propionate 50 mcg/actuation (Allergy Relief (fluticasone)) 1 spray intranasal DAILY PRN 30 days ibuprofen 600 mg PO Q8H PRN losartan 25 mg PO DAILY mecobalamin (vitamin B12) 1,000 mcg PO DAILY metformin 1,000 mg (2 x 500 mg) PO BID 90 days omeprazole 20 mg PO QAM PRN 90 days pyridoxine (vitamin B6) 100 mg PO DAILY 90 days repaglinide 1- 2 tabs prior to dinner PO daily; administer within 15 minutes of a meal or snack 30 days rosuvastatin 40 mg PO DAILY semaglutide (Ozempic) 0.25 mg (0.368 mL) subcut QWEEK 28 days tramadol 50 mg PO BID PRN 30 days ursodiol 300 mg PO BID Tobacco use date assessed: 08/27/23 Dental Screening Dental Screen Date: 08/27/23 Did you have a dental visit in the last 12 months?: Yes Did you have a dental problem in the last 6 months where you did not have access to dental care?: No Was dental information given to patient?: Patient has dentist HPI right sided sciatica like pain HPI Details Patient is a 63-year-old female here today for problem visit. She reports she has been having lower back pain with radiating pain down right lower extremity over the last 3 days. She denies any recent trauma to her lower back or recent falls. Has been putting topical analgesic and warm and cool compress. She reports she has had this similar pain before in the past and did get cortisone injection in her lower lumbar spine through back specialist. Otherwise denies any saddle amnesia, urinary or bladder dysfunction [facility] Medical History Renal cyst Chronic GERD Polyarthralgia Left shoulder pain Right foot pain Renal calculus, bilateral Mild major depression, single episode Morbid obesity with BMI of 40.0-44.9, adult Diabetes type 2, uncontrolled Iron deficiency anemia Osteopenia Left foot pain Postmenopausal Vitamin D deficiency Elevated LFTs Thyroid nodule Type 2 diabetes mellitus with other diabetic kidney complication Proteinuria Hyperlipidemia LDL goal <100 Obesity due to excess calories Essential hypertension Pure hypercholesterolemia Venous thrombosis of upper extremity Diabetes mellitus, type II Spondylosis, cervical Fatty liver Metatarsalgia Arthropathy of knee Surgical History H/O colonoscopy History of extraction of renal calculus History of removal of cyst History of shoulder surgery History of cholecystectomy History of total abdominal hysterectomy and bilateral salpingo-oophorectomy Status post rotator cuff repair Family History Father Stomach cancer Liver cancer Mother Myocardial infarct Diabetes CVD (cardiovascular disease) Sister Cervical cancer Brother Murder Social History Household Members: Children Housing: House Alcohol intake: never Patient Tobacco Use Status: Never used Tobacco e-Cigarette/Vaping Use: Never Used Second Hand Smoke Exposure: No service: No Current occupational status: disabled Current occupation: right handed Cognitive needs: Yes (Pt use a cane) Hearing needs: No Vision needs: No Questionnaire PHQ-9 Over the last 2 weeks, how often have you been bothered by any of the following problems? 1. Little interest or pleasure in doing things: several days 2. Feeling down, depressed, or hopeless: several days 3. Trouble falling or staying asleep, or sleeping too much: several days 4. Feeling tired or having little energy: several days 5. Poor appetite or overeating: not at all 6. Feeling bad about yourself - or that you are a failure or have let yourself or your family down: not at all 7. Trouble concentrating on things, such as reading the newspaper or watching television: not at all 8. Moving or speaking so slowly that other people could have noticed. Or the opposite - being so fidgety or restless that you have been moving around a lot more than usual: not at all 9. Thoughts that you would be better off or of hurting yourself in some way: not at all Total score: 4 Depression Screening Interpretation: Positive Depression Screening Follow-up: Existing condition and In treatment Depression Screening Done: Yes 41729 - PHQ-9 Billing: Yes Source: Developed by Drs. Kostas Simeon, Mary Smith, Lb Barrett and colleagues, with an educational rachael from [employer]. Thrive Questionnaire Date Thrive assessed: 08/27/23 I am a: Patient What is your living situation today?: I have a steady place to live Within the past 12 months, did the food you bought not last and you didn't have the money to get more?: Never true Within the past 12 months, did you worry whether your food would run out before you got money to buy more?: Never true Do you have trouble paying for medicines?: No Do you have trouble getting transportation to medical appointments?: No Do you have trouble paying your heating and electricity bill?: No Do you have trouble taking care of your child, family member or friend?: No Do you have trouble with day-to-day activities such as bathing, preparing meals, shopping, managing finances, etc.?: No Are you currently unemployed and looking for a job?: No Are you interested in more education?: No Please select the resources that you would like help with: None THRIVE Score: 0 AUDIT C Alcohol Use Questionnaire (AUDIT-C) 1. How often do you have a drink containing alcohol?: Never Total Score: 0 Score Reviewed/Action Taken: No HENRIETTA-7 AMB Questionnaire HENRIETTA-7 Date HENRIETTA - 7 assessed: 08/27/23 Feeling nervous, anxious, or on edge: 0 = Not at all Not being able to stop or control worryin = Not at all Worrying too much about different things: 0 = Not at all Trouble relaxin = Not at all Being so restless that it is hard to sit still: 0 = Not at all Becoming easily annoyed or irritable: 0 = Not at all Feeling afraid as if something awful might happen: 0 = Not at all Total HENRIETTA-7 score (0-4 normal; 5-9 mild; 10-14 moderate; 15-21 severe): 0 Source: Developed by Drs. Kostas Simeon, Mary Smith, Lb Barrett and colleagues, with an educational rachael from [employer]. Review of Systems Const Denies headache(s) Eyes Denies loss of vision ENT Denies vertigo, Denies dizziness, Denies headache(s) and Denies sore throat Card Denies chest pain, Denies leg edema and Denies lightheadedness Resp Denies cough, Denies hemoptysis and Denies wheezing GI Denies abdominal pain, Denies melena, Denies constipation, Denies diarrhea and D enies vomiting Denies urinary frequency, Denies dysuria and Denies urinary urgency Musc Denies arthralgias, Denies joint swelling, Denies numbness and Denies tingling Neuro Denies Abnormal speech present, Denies behavioral changes, Denies vertigo, Denies dizziness, Denies headache(s), Denies loss of vision, Denies memory loss, Denies numbness and Denies tingling Psych Denies anxiety, Denies behavioral changes, Denies depression, Denies memory loss and Denies panic attacks Luis Manuel/Lymph Denies easy bleeding and Denies easy bruising Aller/Immun Denies wheezing Physical exam (Primary Care) Vital Signs: Last Vital Signs Pulse 81 08/27/23 10:16 BP 126/80 08/27/23 10:16 Pulse Ox 93 08/27/23 10:16 Oxygen Delivery Method Room Air 08/27/23 10:16 BMI result Body Mass Index 37.4 Tobacco/Smoking Status: Tobacco use Status Tobacco use date assessed 08/27/23 08/27/23 10:18 Patient Tobacco Use Status Never used Tobacco 08/27/23 10:18 e-Cigarette/Vaping Use Never Used 08/27/23 10:18 PHQ-9: PHQ-9 Score PHQ-9: Total score 4 08/27/23 10:33 Depression Screening Interpretation: Positive Depression Screening Follow-up: Existing condition and In treatment Thrive Assessment: Date of Thrive Assessment Date Thrive assessed 08/27/23 08/27/23 10:18 Const Other: PATIENT IS SITTING IN POSITION OF COMFORT General: healthy appearing, no acute distress, alert and awake Nutritional Appearance: well nourished Orientation/consciousness: oriented to person, oriented to place and oriented to time HENMT Ears: TM's normal bilaterally General nose exam: Normal nasal mucous membranes and turbinates present Eyes Conjunctivae: conjunctivae normal Sclerae: sclerae normal Pupils: Equal, round and reactive pupils present Neck Neck: Yes no lymphadenopathy and Yes no JVD Thyroid: Thyroid normal Carotids: no bruits Resp Effort & Inspection: normal respiratory effort and not tachypneic Auscultation: no crackles, no rales, no rhonchi and no wheezes Cardio Rate: regular rate Rhythm: regular rhythm Heart sounds: no murmurs and normal S1 and S2 GI Palpation (GI): Soft to palpation, nontender, no hepatomegaly and no s plenomegaly Auscultation: normal bowel sounds Back/Spine/Pelvis Other: LIMITED RANGE OF MOTION LUMBAR SPINE DUE TO PAIN AND STIFFNESS. PATIENT AMBULATING WITH AN ANTALGIC GAIT. Skin General skin exam: no rashes or lesions noted and dry skin Neuro General: oriented to person, oriented to place and oriented to time Cranial nerves: Yes Equal, round and reactive pupils present Speech: No Abnormal speech present Gait exam (Neuro): Normal gait present Motor exam (neuro): no tremor noted Extrem Right upper extremity: full ROM Left upper extremity: full ROM Right lower extremity: full ROM; no edema Left lower extremity: full ROM; no edema Psych Mental Status: mental status grossly normal Speech and movement: Normal speech and movement present Affect: normal affect Attitude: cooperative Thought process: Normal thought process present Results AMB Hemoglobin A1c AMB Hemoglobin A1c 8.4 % Last Edit by ALFONSO Cameron on 08/27/23 10:30 Results Reviewed Results Reviewed: Laboratory Last Values Hgb A1c (Clinic) 8.4 % (4.0-6.0) H 08/27/23 10:19 Assessment and Plan Assessment & Plan (1) Acute right-sided low back pain with sciatica: Code(s): M54.40 - Lumbago with sciatica, unspecified side Qualifiers: Sciatica laterality: sciatica of right side Qualified Code(s): M54.41 - Lumbago with sciatica, right side Plan: Patient's signs symptoms most consistent with a right-sided sciatica. Would likely benefit from physical therapy though declines at this time. Will send in prednisone taper and muscle relaxer to use at night. Will refer to pain management for possible cortisone injection as this has helped her in the past. (2) Type 2 diabetes mellitus with other diabetic kidney complication: Code(s): E11.29 - Type 2 diabetes mellitus with other diabetic kidney complication Plan: Patient's type 2 diabetes suboptimally controlled with A1c today at 8.4. Adv ised on perhaps increasing her dose of diabetic medication though she declines. Will work on diabetic diet and recheck A1c at next office visit. Orders: Orders AMB Hemoglobin A1c Today E11.29 - Type 2 diabetes mellitus with other diabetic kidney complication XR lumbar spine 2-3V Today M54.41 - Lumbago with sciatica, right side Referrals Pain Management Referral M54.41 - Lumbago with sciatica, right side Medications: New prednisone take 3 tabs x 3 days, take 2 tabs x 3 days , take 1 tab x 3days 10 mg PO DIRECTED 9 days 18 tabs 0RF M54.41 - Lumbago with sciatica, right side Refilled baclofen 10 mg PO BEDTIME 30 days PRN 14 tabs 0RF pain M54.41 - Lumbago with sciatica, right side Coding Level of Care Code Est Pt Level 3 (02504) Diagnoses Acute right-sided low back pain with right-sided sciatica M54.41 Sciatica laterality: sciatica of right side Type 2 diabetes mellitus with other diabetic kidney complication E11.29
== END 2023-08-27 10:48 | disposition home or self-care (01) ==
PROVIDERS: PCP Internal Medicine; Visit Provider Physician Assistant
DX: M54.41 Lumbago with sciatica, right side (principal); E11.29 Type 2 diabetes mellitus with other diabetic kidney complication
CPT/HCPCS: 83036; 99213

== ENCOUNTER 2023-08-27 10:56 | Outpatient (REF) | payer OTHER, SELFPAY ==
--- NOTE | ~2023-08-27 | XR_ITS ---
EXAMINATION: XR LUMBOSACRAL SPINE CLINICAL INFORMATION: Lumbago with sciatica, right side. COMPARISON: 02/20/2022. TECHNIQUE: Three views of the lumbosacral spine. FINDINGS: Levoscoliosis of the lumbar spine. Large coarse calcification redemonstrated overlying the left kidney. Degenerative changes in the imaged lower thoracic spine. Surgical clip anterior to the mid lumbar spine. Facet arthritis in the lower lumbar spine. Mild multilevel lumbar spondylosis with mild loss of disc space height at L5-S1. XR/XR lumbar spine 2-3V IMPRESSION: 1. Mild multilevel lumbar spondylosis. 2. Facet arthritis in the lower lumbar spine.
== END 2023-08-27 10:57 | disposition home or self-care (01) ==
LOC: HO.XRAY 10:56
PROVIDERS: Visit Provider Physician Assistant
DX: M54.41 Lumbago with sciatica, right side (principal)
CPT/HCPCS: 72100

== ENCOUNTER 2023-09-02 13:28 | Outpatient (AMB) | payer OTHER, SELFPAY ==
--- NOTE | 2023-09-02 14:18 | A.OFFVIS_ITS ---
Intake Vital Signs 09/02/23 14:20 Height 5 ft 1 in Weight 197 lb 8 oz BMI 37.3 BP 124/72 Blood Pressure Location Lt brachial Position Sitting Respiration 17 Pulse 88 Pulse Source Pulse Oximeter Pulse Oximetry (%) 96 Oxygen Delivery Method Room Air Intake Visit Reasons: Lumbago w/sciatica, right side Intake Note: Patient comes in for initial visit was referred by primary care. Reports pain 01/12. Allergies atorvastatin Allergy (Intermediate, Verified 09/02/23 14:18) elevated liver enzymes, elevated enzymes duloxetine [Cymbalta] Allergy (Intermediate, Verified 09/02/23 14:18) headache dapagliflozin [From [facility]] Adverse Reaction (Intermediate, Verified 09/02/23 14:18) Dizziness HPI HPI Comments History of Present Illness Details Kandice is very pleasant Slovenian-speaking 63 years old female who presents in my office with complains on pain in the right side in the area of the hip radiating down to the right lower extremity as well as pain in the center of the lumbar spine. She reports that this pain started 6 days ago. She reported that the pain started to bother her when she was climbing upstairs and flexing forward at the same time. She tried application of the heat and cold to help her pain. She tried Motrin p.r.n. to help her pain without significant success. She is on permanent disability. She went for the x-ray of the lumbar spine results of which dictated as below. She never had physical therapy or chiropractic manipulations because of his pain. In the past she was diagnosed with fibromyalgia. She never tried any injections. Past medical history significant for fibromyalgia kidney stones diabetes arthritis fatty liver disease, her past surgical history significant for gallbladder surgery rotator cuff repair in the shoulder and hysterectomy. Social history she is disabled individual denies smoking cigarettes drinking alcohol drinks caffeinated beverages but denies recreational drugs. [facility] Medical History Renal cyst Chronic GERD Polyarthralgia Left shoulder pain Right foot pain Renal calculus, bilateral Mild major depression, single episode Morbid obesity with BMI of 40.0-44.9, adult Diabetes type 2, uncontrolled Iron deficiency anemia Osteopenia Left foot pain Postmenopausal Vitamin D deficiency Elevated LFTs Thyroid nodule Type 2 diabetes mellitus with other diabetic kidney complication Proteinuria Hyperlipidemia LDL goal <100 Obesity due to excess calories Essential hypertension Pure hypercholesterolemia Venous thrombosis of upper extremity Diabetes mellitus, type II Spondylosis, cervical Fatty liver Metatarsalgia Arthropathy of knee Surgical History H/O colonoscopy History of extraction of renal calculus History of removal of cyst History of shoulder surgery History of cholecystectomy History of total abdominal hysterectomy and bilateral salpingo-oophorectomy Status post rotator cuff repair Family History Father Stomach cancer Liver cancer Mother Myocardial infarct Diabetes CVD (cardiovascular disease) Sister Cervical cancer Brother Murder Social History Household Members: Children Housing: House Alcohol intake: never Patient Tobacco Use Status: Never used Tobacco e-Cigarette/Vaping Use: Never Used Second Hand Smoke Exposure: No service: No Current occupational status: disabled Current occupation: right handed Cognitive needs: Yes (Pt use a cane) Hearing needs: No Vision needs: No Review of Systems Const All systems reviewed & are unremarkable except as noted in HPI and below ENT Reports Normal hearing present Neuro Reports Normal hearing present, Denies Abnormal speech present, Denies confusion and Denies Sensory deficit (Neuro) Psych Denies confusion Physical Exam Vital Signs: Last Vital Signs Pulse 88 09/02/23 14:20 Resp 17 09/02/23 14:20 BP 124/72 09/02/23 14:20 Pulse Ox 96 09/02/23 14:20 Oxygen Delivery Method Room Air 09/02/23 14:20 BMI result Body Mass Index 37.3 Const General: no acute distress; No confusion Nutritional Appearance: obese morbidly obese Orientation/consciousness: patient oriented x3 and No confusion Eyes General: appearance normal, both eyes and all related structures Pupils: Equal, round and reactive pupils present EOM: EOMs intact bilaterally Neck Neck: Yes full ROM Chest Chest palpation & inspection: normal inspection of the chest Resp Effort & Inspection: normal respiratory effort, able to speak in complete sentences, normal respiratory pattern, no audible wheezes and no cough Cardio Jugular venous distension: no JVD GI Inspection: Yes normal to inspection Back/Spine/Pelvis Other: Flexing forward and flexing backwards sacroiliac aggravate her pain. SLR aggravates her pain slightly on the right. However Lassegue test does not aggravate the pain Gio test is negative on the right and negative on the left. Pelvic compression test is negative. Valsalva maneuver aggravates her pain slightly. Rotating the right hip outward lateral aggravates pain in the groin. Neuro General: patient oriented x3, gait normal and No confusion Cranial nerves: Yes CN's II-XII intact bilaterally, Yes Equal, round and reactive pupils present, Yes Normal hearing present and Yes Ability to bilaterally elevate shoulders present Speech: No Abnormal speech present Gait exam (Neuro): Normal gait present Motor exam (neuro): 5/5 motor strength present throughout Sensory Exam: No Sensory deficit (Neuro) Extrem General: No pedal edema Psych Speech and movement: Normal speech and movement present Affect: normal affect Attitude: cooperative Thought process: Normal thought process present Thought content: Normal thought content present Insight: Good insight present (Psych) Judgement: Good judgement present (Psych) Results Reviewed Results Reviewed: X-ray lumbar spine 08/27/2023. Findings: Levoscoliosis of the lumbar spine large coarse calcifications read demonstrating overlying the left kidney. Degenerative changes in the image lower thoracic spine. Surgical clip anterior to the lumbar spine facet arthritis in the lower lumbar spine mild multilevel lumbar spondylosis with mild loss of disc space height at L5-S1. Assessment & Plan Assessment & Plan (1) Low back pain: Code(s): M54.50 - Low back pain, unspecified (2) Arthritis of right hip: Code(s): M16.11 - Unilateral primary osteoarthritis, right hip (3) Spondylosis of lumbar region without myelopathy or radiculopathy: Code(s): M47.816 - Spondylosis without myelopathy or radiculopathy, lumbar region (4) Scoliosis of thoracolumbar spine: Code(s): M41.9 - Scoliosis, unspecified (5) Disc degeneration, lumbar: Code(s): M51.36 - Other intervertebral disc degeneration, lumbar region Plan The pain of this patient's seem to be rather acute and not chronic yet. I recommended her to start Motrin on the clock for 7 days and then stop. I also will prescribe muscle relaxant tizanidine. I instructed the patient if tizanidine makes her drowsy opioid sleepy or dizzy she may take this medication mostly at night I will also send patient for right hip x-ray seem to be that the patient is suffering from a arthritis of the right hip. I will also send this patient for physical therapy. It looks like that her problem is rather acute and she needs physical therapy to help her pain. Orders: Orders PT Evaluation and Treatment Today M16.11 - Unilateral primary osteoarthritis, right hip, M41.9 - Scoliosis, unspecified, M47.816 - Spondylosis without myelopathy or radiculopathy, lumbar region, M51.36 - Other intervertebral disc degeneration, lumbar region, M54.50 - Low back pain, unspecified XR hip RT min 2V Today M16.11 - Unilateral primary osteoarthritis, right hip Medications: New tizanidine 2 mg PO Q8H PRN 90 tabs 4RF muscle spasticity 30 days Coding Level of Care Code New Pt Level 3 (58909) Diagnoses Low back pain M54.50 Arthritis of right hip M16.11 Spondylosis of lumbar region without myelopathy or radiculopathy M47.816 Scoliosis of thoracolumbar spine M41.9 Disc degeneration, lumbar M51.36
[2023-09-02 14:20] VITALS: BP 124/72; PULSE 88; RESP 17; O2SAT 96; BMI 37.3
== END 2023-09-02 14:39 | disposition home or self-care (01) ==
PROVIDERS: PCP Internal Medicine; Visit Provider Anesthesiology
DX: M54.50 Low back pain, unspecified (principal); M16.11 Unilateral primary osteoarthritis, right hip; M47.816 Spondylosis without myelopathy or radiculopathy, lumbar region; M41.9 Scoliosis, unspecified; M51.36 Other intervertebral disc degeneration, lumbar region
CPT/HCPCS: 99203

== ENCOUNTER → 2023-09-02 13:28 | Outpatient (BNVA) | payer OTHER, SELFPAY | PROVIDERS: PCP Internal Medicine; Visit Provider Anesthesiology | DX: M54.50 Low back pain, unspecified (principal); M16.11 Unilateral primary osteoarthritis, right hip; M47.816 Spondylosis without myelopathy or radiculopathy, lumbar region; M41.9 Scoliosis, unspecified; M51.36 Other intervertebral disc degeneration, lumbar region | CPT/HCPCS: 99202 ==

== ENCOUNTER 2023-09-04 08:55 | Outpatient (REF) | payer OTHER, SELFPAY ==
--- NOTE | ~2023-09-04 | XR_ITS ---
EXAMINATION: XR HIP, RIGHT CLINICAL INFORMATION: A lateral primary osteoarthritis. COMPARISON: None available. TECHNIQUE: AP and frog-leg lateral views of the right hip are submitted. FINDINGS: Bony alignment and mineralization are normal. The right acetabular joint space is well-maintained. There is a small to moderate peripheral osteophyte of the right acetabular roof. The right femoral head is smooth. There is no fracture or dislocation. There are are right pelvic phleboliths. No foreign body is seen. XR/XR hip RT min 2V IMPRESSION: Mild osteoarthritic change is seen of the right hip. No fracture or dislocation is seen.
== END 2023-09-04 08:56 | disposition home or self-care (01) ==
LOC: HO.XRAY 08:55
PROVIDERS: PCP Internal Medicine; Visit Provider Anesthesiology
DX: M16.11 Unilateral primary osteoarthritis, right hip (principal)
CPT/HCPCS: 73502

== ENCOUNTER 2023-09-25 10:25 | Outpatient (REF) | payer OTHER, SELFPAY ==
[2023-09-25 10:48] LABS: MANUAL DIFF FLAG NO
[2023-09-25 11:02] LABS: Basophils Percent Auto 0.3 % (0-2); Eosinophils Absolute Auto 0.1 X10*3/uL (0.0-0.4); Eosinophils Percent Auto 0.7 % (0-4); Hematocrit 45.8 % (37.0-47.0); Hemoglobin 15.1 g/dl (12.0-16.0); Imm Gran Abs Auto 0.02 X10*3/uL (0.00-0.03); Imm Gran Pct Auto 0.3 % (0.0-0.4); Lymphocytes Absolute Auto 3.2 X10*3/uL (1.2-4.9); Lymphocytes Percent Auto 44.7 % (20-40); Mean Corpuscular Hemoglobin 28.3 pg (27.0-33.0); Mean Corpuscular Volume 85.9 fL (80.0-98.0); Mean Platelet Volume 9.2 fL (9.4-12.3); Monocytes Absolute Auto 0.5 X10*3/uL (0.1-1.2); Monocytes Percent Auto 6.4 % (2-11); Neutrophils Absolute Auto 3.4 x10*3/uL (2.0-8.3); Neutrophils Percent Auto 47.6 % (45-73); Platelet Count 230 X10*3/uL (160-400); Red Blood Count 5.33 X10*6/uL (4.20-5.50); Red Cell Distribution Width 14.5 % (11.0-16.0); White Blood Count 7.2 X10*3/uL (4.8-10.8)
[2023-09-25 11:11] LABS: Estimated Average Glucose 189 mg/dL; Hemoglobin A1c % 8.2 % (<6.0)
[2023-09-25 11:26] LABS: Anion Gap 13 (12-20); Carbon Dioxide 23 mmol/L (22-29); Chloride 108 mmol/L (96-108); Iron 43 mcg/dL (30-160); Percent Iron Saturation 13 % (15-50); Potassium 3.8 mmol/L (3.3-5.1); Sodium 140 mmol/L (135-145); Total Iron Binding Capacity 343 mcg/dL (228-428); Unsaturated Iron Binding 300 ug/dL; Uric Acid 4.3 mg/dL (2.4-5.7)
[2023-09-25 11:27] LABS: Parathyroid Hormone Intact 90.1 pg/mL (8.7-77.1)
[2023-09-25 11:41] LABS: Vitamin D 25-OH Total 27.5 ng/mL (>30)
[2023-09-25 12:25] LABS: Appearance Urine Clear; Color Urine Yellow; Glucose Urine UA >=1000 mg/dL (Negative); Leukocyte Esterase Urine Negative (Negative); Nitrite Urine Negative (Negative); PH 5.5 (5.0-9.0); Specific Gravity - Urine >= 1.030 (1.005-1.025); UMIC TRIGGER UA YES; Urine Blood Negative (Negative); Urine Ketones Trace mg/dL (Negative); Urine Protein 30 (1+) mg/dL (Neg-Trace)
[2023-09-25 12:38] LABS: Creatinine Urine 86.01 mg/dL; Protein/Creatinine Ratio, Ur 0.49 (<0.2); Total Protein Urine Random 42 mg/dL (<12)
[2023-09-25 12:57] LABS: Bacteria Urine Trace (None Seen); Hyaline Casts Urine 0-2 /LPF (0-2); RBC Urine 0-2 /HPF (0-2); WBC Urine 21-50 /HPF (0-5)
== END 2023-09-25 10:26 | disposition home or self-care (01) ==
LOC: HO.LAB 10:25
PROVIDERS: PCP Internal Medicine; Visit Provider Internal Medicine Nephrology
DX: N20.0 Calculus of kidney (principal); N28.1 Cyst of kidney, acquired
CPT/HCPCS: 36415; 80051; 81001; 82306; 82570; 83036; 83540; 83970; 84156; 84550; 85025; 87086

== ENCOUNTER 2023-10-03 12:25 | Outpatient (AMB) | payer OTHER, SELFPAY ==
[2023-10-03 13:01] VITALS: BP 140/80; PULSE 106; RESP 14; O2SAT 98; BMI 37.2
--- NOTE | 2023-10-03 13:01 | MHC.OFFVIS ---
Intake Vital Signs 10/03/23 13:01 Height 5 ft 1 in Weight 197 lb BMI 37.2 BP 140/80 H Blood Pressure Location Lt radial Position Sitting Respiration 14 Pulse 106 H Pulse Source Pulse Oximeter Pulse Oximetry (%) 98 Oxygen Delivery Method Room Air Intake Visit Reasons: 1 month follow up/ LVM Intake Note: Patient comes in for 1 month follow up. Reports pain 5/10. Allergies atorvastatin Allergy (Intermediate, Verified 10/03/23 13:01) elevated liver enzymes, elevated enzymes duloxetine [Cymbalta] Allergy (Intermediate, Verified 10/03/23 13:01) headache dapagliflozin [From Farxiga] Adverse Reaction (Intermediate, Verified 10/03/23 13:01) Dizziness HPI HPI Comments History of Present Illness Details Kandice is back in my office after the x-ray of the right hip. She also supposed to go for physical therapy however due to some miscommunication with the physical therapy office she was not able to complete even 1 session of physical therapy. I explained to the patient that this is very crucial for her treatment to go for physical therapy and complete at least 6 sessions and complete home exercise program with repeats of the exercises 4 times a day at least 15 minutes at a time. After she will complete physical therapy she will come back and we will discuss possible injections if her pain is not getting better. Prior: pain in the right side in the area of the hip radiating down to the right lower extremity as well as pain in the center of the lumbar spine. She reports that this pain started 6 days ago. She reported that the pain started to bother her when she was climbing upstairs and flexing forward at the same time. She tried application of the heat and cold to help her pain. She tried Motrin p.r.n. to help her pain without significant success. She is on permanent disability. She went for the x-ray of the lumbar spine results of which dictated as below. She never had physical therapy or chiropractic manipulations because of his pain. In the past she was diagnosed with fibromyalgia. She never tried any injections. [facility] Medical History Renal cyst Chronic GERD Polyarthralgia Left shoulder pain Right foot pain Renal calculus, bilateral Mild major depression, single episode Morbid obesity with BMI of 40.0-44.9, adult Diabetes type 2, uncontrolled Iron deficiency anemia Osteopenia Left foot pain Postmenopausal Vitamin D deficiency Elevated LFTs Thyroid nodule Type 2 diabetes mellitus with other diabetic kidney complication Proteinuria Hyperlipidemia LDL goal <100 Obesity due to excess calories Essential hypertension Pure hypercholesterolemia Venous thrombosis of upper extremity Diabetes mellitus, type II Spondylosis, cervical Fatty liver Metatarsalgia Arthropathy of knee Surgical History H/O colonoscopy History of extraction of renal calculus History of removal of cyst History of shoulder surgery History of cholecystectomy History of total abdominal hysterectomy and bilateral salpingo-oophorectomy Status post rotator cuff repair Family History Father Stomach cancer Liver cancer Mother Myocardial infarct Diabetes CVD (cardiovascular disease) Sister Cervical cancer Brother Murder Social History Household Members: Children Housing: House Alcohol intake: never Patient Tobacco Use Status: Never used Tobacco e-Cigarette/Vaping Use: Never Used Second Hand Smoke Exposure: No service: No Current occupational status: disabled Current occupation: right handed Cognitive needs: Yes (Pt use a cane) Hearing needs: No Vision needs: No Review of Systems Const All systems reviewed & are unremarkable except as noted in HPI and below ENT Reports Normal hearing present Neuro Reports Normal hearing present, Denies Abnormal speech present, Denies confusion and Denies Sensory deficit (Neuro) Psych Denies confusion Physical Exam Vital Signs: Last Vital Signs Pulse 106 H 10/03/23 13:01 Resp 14 10/03/23 13:01 BP 140/80 H 10/03/23 13:01 Pulse Ox 98 10/03/23 13:01 Oxygen Delivery Method Room Air 10/03/23 13:01 BMI result Body Mass Index 37.2 Const General: no acute distress; No confusion Nutritional Appearance: obese morbidly obese Orientation/consciousness: patient oriented x3 and No confusion Eyes General: appearance normal, both eyes and all related structures Pupils: Equal, round and reactive pupils present EOM: EOMs intact bilaterally Neck Neck: Yes full ROM Chest Chest palpation & inspection: normal inspection of the chest Resp Effort & Inspection: normal respiratory effort, able to speak in complete sentences, normal respiratory pattern, no audible wheezes and no cough Cardio Jugular venous distension: no JVD GI Inspection: Yes normal to inspection Back/Spine/Pelvis Other: Flexing forward and flexing backwards sacroiliac aggravate her pain. SLR aggravates her pain slightly on the right. However Lassegue test does not aggravate the pain Gio test is negative on the right and negative on the left. Pelvic compression test is negative. Valsalva maneuver aggravates her pain slightly. Rotating the right hip outward lateral aggravates pain in the groin. Neuro General: patient oriented x3, gait normal and No confusion Cranial nerves: Yes CN's II-XII intact bilaterally, Yes Equal, round and reactive pupils present, Yes Normal hearing present and Yes Ability to bilaterally elevate shoulders present Speech: No Abnormal speech present Gait exam (Neuro): Normal gait present Motor exam (neuro): 5/5 motor strength present throughout Sensory Exam: No Sensory deficit (Neuro) Extrem General: No pedal edema Psych Speech and movement: Normal speech and movement present Affect: normal affect Attitude: cooperative Thought process: Normal thought process present Thought content: Normal thought content present Insight: Good insight present (Psych) Judgement: Good judgement present (Psych) Results Reviewed Results Reviewed: Bony alignment and mineralization are normal. The right acetabular joint space is well-maintained. There is a small to moderate peripheral osteophyte of the right acetabular roof. The right femoral head is smooth. There is no fracture or dislocation. There are are right pelvic phleboliths. No foreign body is seen. IMPRESSION: Mild osteoarthritic change is seen of the right hip. No fracture or dislocation is seen. Assessment & Plan Assessment & Plan (1) Low back pain: Code(s): M54.50 - Low back pain, unspecified (2) Arthritis of right hip: Code(s): M16.11 - Unilateral primary osteoarthritis, right hip (3) Spondylosis of lumbar region without myelopathy or radiculopathy: Code(s): M47.816 - Spondylosis without myelopathy or radiculopathy, lumbar region (4) Scoliosis of thoracolumbar spine: Code(s): M41.9 - Scoliosis, unspecified (5) Disc degeneration, lumbar: Code(s): M51.36 - Other intervertebral disc degeneration, lumbar region Plan Unfortunately patient did not complete physical therapy as it was ordered and recommended for her. She has arthritis in her right hip however without physical therapy treatment I can not schedule her for the hip injection. She will complete physical therapy at least 6 sessions and home exercise program and if her pain is not getting better I will schedule her for the right hip injection. Patient Instructions: Angeles Goodrich, electorate officer of pain management Center help me today with conversation that this patient interpreting from [place]. Coding Level of Care Code Est Pt Level 3 (83144) Diagnoses Low back pain M54.50 Arthritis of right hip M16.11 Spondylosis of lumbar region without myelopathy or radiculopathy M47.816 Scoliosis of thoracolumbar spine M41.9 Disc degeneration, lumbar M51.36
== END 2023-10-03 13:16 | disposition home or self-care (01) ==
PROVIDERS: PCP Internal Medicine; Visit Provider Anesthesiology
DX: M54.50 Low back pain, unspecified (principal); M16.11 Unilateral primary osteoarthritis, right hip; M47.816 Spondylosis without myelopathy or radiculopathy, lumbar region; M41.9 Scoliosis, unspecified; M51.36 Other intervertebral disc degeneration, lumbar region
CPT/HCPCS: 99213

== ENCOUNTER → 2023-10-03 12:25 | Outpatient (BNVA) | payer OTHER, SELFPAY | PROVIDERS: PCP Internal Medicine; Visit Provider Anesthesiology | DX: M54.50 Low back pain, unspecified (principal); M16.11 Unilateral primary osteoarthritis, right hip; M47.816 Spondylosis without myelopathy or radiculopathy, lumbar region; M41.9 Scoliosis, unspecified; M51.36 Other intervertebral disc degeneration, lumbar region | CPT/HCPCS: 99212 ==

== ENCOUNTER 2023-10-07 09:36 | Outpatient (REF) | payer OTHER, SELFPAY ==
[2023-10-07 10:54] LABS: Appearance Urine Cloudy; Color Urine Yellow; Glucose Urine UA >=1000 mg/dL (Negative); Leukocyte Esterase Urine Small (1+) (Negative); Nitrite Urine Negative (Negative); PH 5.5 (5.0-9.0); Specific Gravity - Urine >= 1.030 (1.005-1.025); UMIC TRIGGER UA YES; Urine Blood Small (1+) (Negative); Urine Ketones Trace mg/dL (Negative); Urine Protein 100 (2+) mg/dL (Neg-Trace)
[2023-10-07 11:11] LABS: Bacteria Urine Trace (None Seen); Hyaline Casts Urine 0-2 /LPF (0-2); WBC Urine >50 /HPF (0-5)
== END 2023-10-07 09:37 | disposition home or self-care (01) ==
LOC: HO.LAB 09:36
PROVIDERS: PCP Internal Medicine; Visit Provider Internal Medicine Nephrology
DX: N20.0 Calculus of kidney (principal)
CPT/HCPCS: 81001; 87086

== ENCOUNTER 2023-10-22 09:47 | Outpatient (AMB) | payer OTHER, SELFPAY ==
--- NOTE | 2023-10-22 09:50 | A.OFFPC_ITS ---
Vital Signs 10/22/23 09:51 Height 5 ft 1 in Weight 197 lb BMI 37.2 BP 126/82 Blood Pressure Location Lt brachial Position Sitting Intake Visit Reasons: follow up Intake Note: Patient here for follow up, c/o left ear pain Foreclosure Specialist Required: No Accompanied by: Self / Same As Patient Allergies atorvastatin Allergy (Intermediate, Verified 10/22/23 10:10) elevated liver enzymes, elevated enzymes duloxetine [Cymbalta] Allergy (Intermediate, Verified 10/22/23 10:10) headache dapagliflozin [From [facility]] Adverse Reaction (Intermediate, Verified 10/22/23 10:10) Dizziness Medication List - Last Reconciled 10/22/23 by Yoli Padilla MD acetaminophen (Tylenol Extra Strength) 1,000 mg (2 x 500 mg) PO Q6H PRN 30 days alclometasone 0.05% appl topical BID PRN baclofen 10 mg PO BEDTIME PRN 30 days blood sugar diagnostic (FreeStyle Lite Strips) 3 times a day blood-glucose meter (FreeStyle Lite Meter kit) As directed 3x/day calcium carbonate 500 mg PO BID 30 days cholecalciferol (vitamin D3) 25 mcg PO DAILY diclofenac sodium 1% 2 grams topical BID PRN empagliflozin (Jardiance) 25 mg PO DAILY 90 days ezetimibe 10 mg PO DAILY 90 days fluticasone propionate 50 mcg/actuation (Allergy Relief (fluticasone)) 1 spray intranasal DAILY PRN 30 days ibuprofen 600 mg PO Q8H PRN losartan 25 mg PO DAILY mecobalamin (vitamin B12) 1,000 mcg PO DAILY metformin 1,000 mg (2 x 500 mg) PO BID 90 days omeprazole 20 mg PO QAM PRN 90 days pyridoxine (vitamin B6) 100 mg PO DAILY 90 days repaglinide 1- 2 tabs prior to dinner PO daily; administer within 15 minutes of a meal or snack 30 days rosuvastatin 40 mg PO DAILY semaglutide (Ozempic) 0.5 mg (0.736 mL) subcut QWEEK 28 days tizanidine 2 mg PO Q8H PRN 30 days tramadol 50 mg PO BID PRN 30 days ursodiol 300 mg PO BID Tobacco use date assessed: 08/27/23 HPI HPI Comments History of Present Illness Details This is a 63-year-old female with diabetes mellitus type 2, hypertension, hyperlipidemia and moderate recurrent major depression that comes today complaining of left ear pain that has been bothering her for a week. No fever or nasal congestion. Last A1c was elevated and I will increase Ozempic from 0.25-0.50 mg. Blood pressure stable. LDL should be less than 70. Depr ession stable and this is follow by Psychiatry and counseling. No chest pain or shortness of breath. [facility] Medical History Renal cyst Chronic GERD Polyarthralgia Left shoulder pain Right foot pain Renal calculus, bilateral Mild major depression, single episode Morbid obesity with BMI of 40.0-44.9, adult Diabetes type 2, uncontrolled Iron deficiency anemia Osteopenia Left foot pain Postmenopausal Vitamin D deficiency Elevated LFTs Thyroid nodule Type 2 diabetes mellitus with other diabetic kidney complication Proteinuria Hyperlipidemia LDL goal <100 Obesity due to excess calories Essential hypertension Pure hypercholesterolemia Venous thrombosis of upper extremity Diabetes mellitus, type II Spondylosis, cervical Fatty liver Metatarsalgia Arthropathy of knee Surgical History H/O colonoscopy History of extraction of renal calculus History of removal of cyst History of shoulder surgery History of cholecystectomy History of total abdominal hysterectomy and bilateral salpingo-oophorectomy Status post rotator cuff repair Family History Father Stomach cancer Liver cancer Mother Myocardial infarct Diabetes CVD (cardiovascular disease) Sister Cervical cancer Brother Murder Social History Household Members: Children Housing: House Alcohol intake: never Patient Tobacco Use Status: Never used Tobacco e-Cigarette/Vaping Use: Never Used Second Hand Smoke Exposure: No service: No Current occupational status: disabled Current occupation: right handed Cognitive needs: Yes (Pt use a cane) Hearing needs: No Vision needs: No Questionnaire Thrive Questionnaire Date Thrive assessed: 10/22/23 I am a: Patient What is your living situation today?: I have a steady place to live Within the past 12 months, did the food you bought not last and you didn't have the money to get more?: Never true Within the past 12 months, did you worry whether your food would run out before you got money to buy more?: Never true Do you have trouble paying for medicines?: No Do you have trouble getting transportation to medical appointments?: No Do you have trouble paying your heating and electricity bill?: No Do you have trouble taking care of your child, family member or friend?: No Do you have trouble with day-to-day activities such as bathing, preparing meals, shopping, managing finances, etc.?: No Are you currently unemployed and looking for a job?: No Are you interested in more education?: No Please select the resources that you would like help with: None Currently or been in a relationship where the following occur: no concerns reported THRIVE Score: 0 AUDIT C Alcohol Use Questionnaire (AUDIT-C) 1. How often do you have a drink containing alcohol?: Never Total Score: 0 HENRIETTA-7 AMB Questionnaire HENRIETTA-7 Date HENRIETTA - 7 assessed: 10/22/23 Feeling nervous, anxious, or on edge: 1 = Several days Not being able to stop or control worryin = Not at all Worrying too much about different things: 2 = More than half the days Trouble relaxin = Not at all Being so restless that it is hard to sit still: 0 = Not at all Becoming easily annoyed or irritable: 0 = Not at all Feeling afraid as if something awful might happen: 0 = Not at all Total HENRIETTA-7 score (0-4 normal; 5-9 mild; 10-14 moderate; 15-21 severe): 3 Source: Developed by Drs. Kostas Simeon, Mary Smith, Lb Barrett and colleagues, with an educational rachael from [employer]. HENRIETTA-7 Assessment Billing HENRIETTA-7 Assessment Tool: HENRIETTA-7 Assessment 19304 Review of Systems Const All systems reviewed & are unremarkable except as noted in HPI and below Eyes Reports no additional complaints, Denies change in vision and Denies other visual disturbances Card Denies chest pain at rest, Denies chest pain with activity, Denies edema, Denies irregular heart rhythm, Denies claudication, Denies dyspnea, Denies dyspnea on exertion, Denies orthopnea, Denies paroxysmal nocturnal dyspnea and Denies slow heart rate Resp Denies cough, Denies dyspnea and Denies dyspnea on exertion GI Denies abdominal pain, Denies change in bowel habits, Denies excessive flatus, Denies nausea and Denies vomiting Denies urinary incontinence, Denies urinary hesitancy and Denies urinary urgency Musc Denies abnormal gait, Denies atrophy, Denies deformity and Denies limited range of motion Skin/Breast Denies bleeding lesions, Denies changing lesions and Denies rash Neuro Denies abnormal gait and Denies lack of coordination Physical exam (Primary Care) Vital Signs: Last Vital Signs BP 126/82 10/22/23 09:51 BMI result Body Mass Index 37.2 Tobacco/Smoking Status: Tobacco use Status Tobacco use date assessed 08/27/23 10/22/23 09:59 Patient Tobacco Use Status Never used Tobacco 10/22/23 09:59 e-Cigarette/Vaping Use Never Used 10/22/23 09:59 Thrive Assessment: Date of Thrive Assessment Date Thrive assessed 10/22/23 10/22/23 09:59 Currently or been in a relationship where the following occur: no concerns reported Eyes General: appearance normal, both eyes and all related structures Eyelids: Yes eyelids normal Conjunctivae: conjunctivae normal Neck Neck: Yes normal visual inspection and Yes supple Resp Effort & Inspection: normal respiratory effort Auscultation: clear to auscultation bilaterally Cardio Jugular venous distension: no JVD Rate: regular rate Rhythm: regular rhythm Heart sounds: S1 normal heart sound present and S2 normal heart sound present Extrem General: Yes full ROM Assessment and Plan Assessment & Plan (1) Left otitis media: Code(s): H66.92 - Otitis media, unspecified, left ear Plan: Start amoxicillin. (2) Hyperlipidemia LDL goal <70: Code(s): E78.5 - Hyperlipidemia, unspecified Plan: Continue statins and Zetia. LDL goal should be less than 70. (3) MDD (major depressive disorder), recurrent episode, moderate: Code(s): F33.1 - Major depressive disorder, recurrent, moderate Plan: Follow-up with counseling and psychiatry. (4) Diabetes mellitus, type II: Code(s): E11.9 - Type 2 diabetes mellitus without complications Qualifiers: Diabetes mellitus chcf insulin use: without remote computer terminal operator use Diabetes mellitus complication status: with hyperglycemia Qualified Code(s): E11.65 - Type 2 diabetes mellitus with hyperglycemia Plan: Continue metformin and repaglinide. Increase Ozempic. A1c goal is equal or less than 7%. (5) Essential hypertension: Code(s): I10 - Essential (primary) hypertension Plan: Continue losartan. Blood pressure goal is equal or less than 130/80. Orders: Orders Microalbumin, Random (w Creat) Today E11.9 - Type 2 diabetes mellitus without complications Comprehensive [place]. Panel Fast Today E11.9 - Type 2 diabetes mellitus without complications Lipid Panel Today E78.5 - Hyperlipidemia, unspecified Vitamin D 25-OH Total Today E55.9 - Vitamin D deficiency, unspecified Vitamin B12 and Folate Today E53.8 - Deficiency of other specified B group vitamins Medications: New amoxicillin 500 mg PO BID 7 days 14 tabs 0RF H66.92 - Otitis media, unspecified, left ear Coding Level of Care Code Est Pt Level 4 (48148) Diagnoses Left otitis media H66.92 Hyperlipidemia LDL goal <70 E78.5 MDD (major depressive disorder), recurrent episode, moderate F33.1 Type 2 diabetes mellitus with hyperglycemia, without long-term current use of insulin E11.65 Diabetes mellitus remote computer terminal operator insulin use: without chcf use Diabetes mellitus complication status: with hyperglycemia Essential hypertension I10 Additional Codes HENRIETTA-7 Assessment Billing - HENRIETTA-7 Assessment Tool: HENRIETTA-7 Assessment 43567 ([id number]) Time Spent (min) 22
[2023-10-22 09:51] VITALS: BP 126/82; BMI 37.2
== END 2023-10-22 10:23 | disposition home or self-care (01) ==
PROVIDERS: PCP Internal Medicine; Visit Provider Internal Medicine
DX: H66.92 Otitis media, unspecified, left ear (principal); E78.5 Hyperlipidemia, unspecified; F33.1 Major depressive disorder, recurrent, moderate; E11.65 Type 2 diabetes mellitus with hyperglycemia; I10 Essential (primary) hypertension
CPT/HCPCS: 99214

== ENCOUNTER 2023-12-23 09:28 | Outpatient (REF) | payer OTHER, SELFPAY ==
[2023-12-23 09:52] LABS: MANUAL DIFF FLAG NO
[2023-12-23 10:08] LABS: Basophils Percent Auto 0.5 % (0-2); Eosinophils Absolute Auto 0.1 X10*3/uL (0.0-0.4); Eosinophils Percent Auto 0.8 % (0-4); Hematocrit 43.8 % (37.0-47.0); Hemoglobin 14.5 g/dl (12.0-16.0); Imm Gran Abs Auto 0.01 X10*3/uL (0.00-0.03); Imm Gran Pct Auto 0.2 % (0.0-0.4); Lymphocytes Absolute Auto 3.1 X10*3/uL (1.2-4.9); Lymphocytes Percent Auto 49.6 % (20-40); Mean Corpuscular HGB Conc 33.1 g/dl (31.0-35.0); Mean Corpuscular Hemoglobin 29.2 pg (27.0-33.0); Mean Corpuscular Volume 88.3 fL (80.0-98.0); Mean Platelet Volume 9.6 fL (9.4-12.3); Monocytes Absolute Auto 0.4 X10*3/uL (0.1-1.2); Monocytes Percent Auto 5.6 % (2-11); Neutrophils Absolute Auto 2.7 x10*3/uL (2.0-8.3); Neutrophils Percent Auto 43.3 % (45-73); Platelet Count 181 X10*3/uL (160-400); Red Blood Count 4.96 X10*6/uL (4.20-5.50); Red Cell Distribution Width 13.3 % (11.0-16.0); White Blood Count 6.2 X10*3/uL (4.8-10.8)
[2023-12-23 11:06] LABS: Alanine Aminotransferase 33 U/L (0-31); Albumin Level 4.2 g/dL (3.5-5.0); Alkaline Phosphatase 98 U/L (39-117); Anion Gap 15 (12-20); Aspartate Amino Transferase 30 U/L (5-31); Bilirubin Total 0.3 mg/dL (0.0-1.0); Blood Urea Nitrogen 12 mg/dL (9-16); Calcium 9.6 mg/dL (8.4-10.2); Carbon Dioxide 24 mmol/L (22-29); Chloride 105 mmol/L (96-108); Cholesterol 204 mg/dL (<200); Estimated Glomerular Filt Rate > 60; Glucose Fasting 164 mg/dL (60-99); HDL Cholesterol 52 mg/dL (>40); Iron 42 mcg/dL (30-160); LDL Cholesterol Calculated 132 mg/dL (<100); Percent Iron Saturation 13 % (15-50); Potassium 3.7 mmol/L (3.3-5.1); Sodium 140 mmol/L (135-145); Total Iron Binding Capacity 330 mcg/dL (228-428); Total Protein 7.5 g/dL (6.5-8.0); Triglycerides 104 mg/dL (<150); Unsaturated Iron Binding 288 ug/dL
[2023-12-23 11:10] LABS: Creatinine Urine 78.02 mg/dL; Microalbum/Creatinine Ratio Ur 102.5 ug/mg cr (<30)
[2023-12-23 11:12] LABS: Vitamin D 25-OH Total 25.9 ng/mL (>30)
[2023-12-23 11:28] LABS: Folate 15.3 ng/mL (> or = 4.0)
[2023-12-23 11:46] LABS: Vitamin B12 > 2000 pg/mL (200-900)
== END 2023-12-23 09:29 | disposition home or self-care (01) ==
LOC: HO.LAB 09:28
PROVIDERS: PCP Internal Medicine; Visit Provider Internal Medicine
DX: E78.5 Hyperlipidemia, unspecified (principal); E11.9 Type 2 diabetes mellitus without complications; D64.9 Anemia, unspecified; E53.8 Deficiency of other specified B group vitamins; E55.9 Vitamin D deficiency, unspecified
CPT/HCPCS: 36415; 80053; 80061; 82043; 82306; 82570; 82607; 82746; 83540; 85025

== ENCOUNTER 2023-12-25 15:47 | Outpatient (AMB) | payer OTHER, SELFPAY ==
[2023-12-25 15:51] VITALS: BP 130/82; BMI 37.0
--- NOTE | 2023-12-25 15:51 | MHC.PC.OV ---
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: No Accompanied by: Self / Same As Patient Allergies atorvastatin Allergy (Intermediate, Verified 12/25/23 16:16) elevated liver enzymes, elevated enzymes duloxetine [Cymbalta] Allergy (Intermediate, Verified 12/25/23 16:16) headache dapagliflozin [From [facility]] Adverse Reaction (Intermediate, Verified 12/25/23 16:16) Dizziness Medication List - Last Reconciled 12/25/23 by Yoli Padilla MD acetaminophen (Tylenol Extra Strength) 1,000 mg (2 x 500 mg) PO Q6H PRN 30 days alclometasone 0.05% appl topical BID PRN blood sugar diagnostic (FreeStyle Lite Strips) 3 times a day blood-glucose meter (FreeStyle Lite Meter kit) As directed 3x/day calcium carbonate 500 mg PO BID 30 days cholecalciferol (vitamin D3) 25 mcg PO DAILY diclofenac sodium 1% 2 grams topical BID PRN empagliflozin (Jardiance) 25 mg PO DAILY 90 days ezetimibe 10 mg PO DAILY 90 days fluticasone propionate 50 mcg/actuation (Allergy Relief (fluticasone)) 1 spray intranasal DAILY PRN 30 days ibuprofen 600 mg PO Q8H PRN losartan 25 mg PO DAILY mecobalamin (vitamin B12) 1,000 mcg PO DAILY metformin 1,000 mg (2 x 500 mg) PO BID 90 days omeprazole 20 mg PO QAM PRN 90 days pyridoxine (vitamin B6) 100 mg PO DAILY 90 days repaglinide 1- 2 tabs prior to dinner PO daily; administer within 15 minutes of a meal or snack 30 days rosuvastatin 40 mg PO DAILY semaglutide (Ozempic) 1 mg (0.75 mL) subcut QWEEK 30 days tizanidine 2 mg PO Q8H PRN 30 days tramadol 50 mg PO BID PRN 30 days ursodiol 300 mg PO BID Tobacco use date assessed: 08/27/23 Dental Screening Dental Screen Date: 08/27/23 HPI HPI Comments History of Present Illness Details This is a 63-year-old female with diabetes mellitus type 2, hypertension, hyperlipidemia, chronic GERD and moderate major depression that comes today complaining of left leg pain that started about 3 months ago. I will order ultrasound duplex to rule out DVT. A1c not on goal and I will increase Ozempic. Blood pressure stable. Last LDL was not on goal and I will add Repatha. It looks like she has familial hyperlipidemia since everyone in his family has elevated cholesterol. GERD stable with PPIs. She goes to counseling for her depression that has been stable. [facility] Medical History (Updated 12/25/23 @ 16:25 by Yoli Padilla MD) Renal cyst Chronic GERD Polyarthralgia Left shoulder pain Right foot pain Renal calculus, bilateral Mild major depression, single episode Morbid obesity with BMI of 40.0-44.9, adult Diabetes type 2, uncontrolled Iron deficiency anemia Osteopenia Left foot pain Postmenopausal Vitamin D deficiency Elevated LFTs Thyroid nodule Type 2 diabetes mellitus with other diabetic kidney complication Proteinuria Hyperlipidemia LDL goal <100 Obesity due to excess calories Essential hypertension Pure hypercholesterolemia Venous thrombosis of upper extremity Diabetes mellitus, type II Spondylosis, cervical Fatty liver Metatarsalgia Arthropathy of knee Surgical History H/O colonoscopy History of extraction of renal calculus History of removal of cyst History of shoulder surgery History of cholecystectomy History of total abdominal hysterectomy and bilateral salpingo-oophorectomy Status post rotator cuff repair Family History Father Stomach cancer Liver cancer Mother Myocardial infarct Diabetes CVD (cardiovascular disease) Sister Cervical cancer Brother Murder Social History Household Members: Children Housing: House Alcohol intake: never Patient Tobacco Use Status: Never used Tobacco e-Cigarette/Vaping Use: Never Used Second Hand Smoke Exposure: No service: No Current occupational status: disabled Current occupation: right handed Cognitive needs: Yes (Pt use a cane) Hearing needs: No Vision needs: No Questionnaire Thrive Questionnaire Date Thrive assessed: 10/22/23 HENRIETTA-7 AMB Questionnaire HENRIETTA-7 Date HENRIETTA - 7 assessed: 10/22/23 Source: Developed by Drs. Kostas Simeon, Mary Smith, Lb Barrett and colleagues, with an educational rachael from [employer]. Review of Systems Const All systems reviewed & are unremarkable except as noted in HPI and below Card Denies chest pain at rest, Denies chest pain with activity, Denies edema, Denies irregular heart rhythm, Denies claudication, Denies dyspnea, Denies dyspnea on exertion, Denies orthopnea, Denies paroxysmal nocturnal dyspnea and Denies slow heart rate Resp Denies cough, Denies dyspnea and Denies dyspnea on exertion GI Denies abdominal pain, Denies change in bowel habits, Denies excessive flatus, Denies nausea and Denies vomiting Physical exam (Primary Care) Vital Signs: Last Vital Signs BP 130/82 12/25/23 15:51 BMI result Body Mass Index 37.0 Tobacco/Smoking Status: Tobacco use Status Tobacco use date assessed 08/27/23 12/25/23 15:54 Patient Tobacco Use Status Never used Tobacco 12/25/23 15:54 e-Cigarette/Vaping Use Never Used 12/25/23 15:54 Thrive Assessment: Date of Thrive Assessment Date Thrive assessed 10/22/23 12/25/23 15:54 Resp Effort & Inspection: normal respiratory effort Auscultation: clear to auscultation bilaterally Cardio Jugular venous distension: no JVD Rate: regular rate Rhythm: regular rhythm Heart sounds: S1 normal heart sound present and S2 normal heart sound present Extrem General: Yes full ROM Results AMB Hemoglobin A1c AMB Hemoglobin A1c 8.5 % Last Edit by ALFONSO Mims on 12/25/23 16:04 Results Reviewed Results Reviewed: Laboratory Last Values Hgb A1c (Clinic) 8.5 % (4.0-6.0) H 12/25/23 15:51 Assessment and Plan Assessment & Plan (1) Type 2 diabetes mellitus with other diabetic kidney complication: Code(s): E11.29 - Type 2 diabetes mellitus with other diabetic kidney complication Plan: Increase Ozempic. Continue repaglinide, metformin and Jardiance. A1c goal is equal or less than 7%. (2) Essential hypertension: Code(s): I10 - Essential (primary) hypertension Plan: Continue losartan. Blood pressure goal is equal or less than 130/80. (3) MDD (major depressive disorder), recurrent episode, moderate: Code(s): F33.1 - Major depressive disorder, recurrent, moderate Plan: Follow-up with counseling. (4) Hyperlipidemia LDL goal <70: Code(s): E78.5 - Hyperlipidemia, unspecified Plan: Continue statins and Zetia. Start Repatha. LDL goal is less than 70. (5) Left leg pain: Code(s): M79.605 - Pain in left leg Plan: Ultrasound ordered. Orders: Orders US venous duplex LE LT Today M79.605 - Pain in left leg Microalbumin, Random (w Creat) 4 Months E11.9 - Type 2 diabetes mellitus without complications Vitamin D 25-OH Total 4 Months E55.9 - Vitamin D deficiency, unspecified Comprehensive [place]. Panel Fast 4 Months E78.5 - Hyperlipidemia, unspecified AMB Hemoglobin A1c Today E11.65 - Type 2 diabetes mellitus with hyperglycemia Lipid Panel 4 Months E78.5 - Hyperlipidemia, unspecified Vitamin B12 and Folate 4 Months E53.8 - Deficiency of other specified B group vitamins Apolipoprotein B 4 Months E78.5 - Hyperlipidemia, unspecified Lipoprotein Asso Phospholip A2 4 Months E78.5 - Hyperlipidemia, unspecified Lipoprotein A 4 Months E78.5 - Hyperlipidemia, unspecified Medications: New evolocumab (Repatha Pushtronex) 420 mg (3.5 mL) subcut .once a month 3.5 mL 5RF 30 days semaglutide (Ozempic) 2 mg (0.75 mL) subcut QWEEK 3 mL 6RF 4 weeks Discontinued semaglutide (Ozempic) Discontinued Reason: Patient Completed Course 1 mg (0.75 mL) subcut QWEEK 30 days 3.75 mL 6RF Coding Level of Care Code Est Pt Level 4 (42029) Diagnoses Type 2 diabetes mellitus with other diabetic kidney complication E11.29 Essential hypertension I10 MDD (major depressive disorder), recurrent episode, moderate F33.1 Hyperlipidemia LDL goal <70 E78.5 Left leg pain M79.605 Time Spent (min) 23
== END 2023-12-25 16:29 | disposition home or self-care (01) ==
LOC: HO.HMGH 15:49
PROVIDERS: PCP Internal Medicine; Visit Provider Internal Medicine
DX: E11.29 Type 2 diabetes mellitus with other diabetic kidney complication (principal); F33.1 Major depressive disorder, recurrent, moderate; E11.65 Type 2 diabetes mellitus with hyperglycemia; I10 Essential (primary) hypertension; E78.5 Hyperlipidemia, unspecified; M79.605 Pain in left leg
CPT/HCPCS: 83036; 99214

== ENCOUNTER 2023-12-25 16:44 | Outpatient (REF) | payer OTHER, SELFPAY ==
--- NOTE | ~2023-12-25 | US_ITS ---
EXAMINATION: US LOWER EXTREMITY VENOUS, LEFT CLINICAL INFORMATION: Leg pain COMPARISON: None. TECHNIQUE: Doppler spectral analysis and color flow Doppler imaging was performed of the left lower extremity. Compression and augmentation maneuvers were performed. FINDINGS: Lower extremity venous ultrasound demonstrates no evidence of DVT. The common femoral, femoral, popliteal and calf veins were well identified and normal. They demonstrate normal compressibility and color fill-in. US/US venous duplex LE LT IMPRESSION: No evidence for a lower extremity deep vein thrombosis.
== END 2023-12-25 16:45 | disposition home or self-care (01) ==
LOC: HO.US 16:44
PROVIDERS: PCP Internal Medicine; Visit Provider Internal Medicine
DX: M79.605 Pain in left leg (principal)
CPT/HCPCS: 93971

== ENCOUNTER 2024-03-19 08:59 | Outpatient (AMB) | payer OTHER, SELFPAY ==
--- NOTE | 2024-03-19 09:11 | A.OFFVIS_ITS ---
Vital Signs 03/19/24 09:15 Height 5 ft 1 in Weight 199 lb 8.293 oz BMI 37.7 BP 122/80 Blood Pressure Location Lt brachial Position Sitting Pulse 85 Pulse Source Pulse Oximeter Pulse Oximetry (%) 98 Oxygen Delivery Method Room Air Intake Visit Reasons: +ve RF/lm Intake Note: Patient presents for +ve RF. 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 Services: Supervisor [employer] Present Supervisor [employer]ishing Name: Cheko [id number] Information Interpreted: non-clinical & clinical Allergies atorvastatin Allergy (Intermediate, Verified 03/19/24 09:14) elevated liver enzymes, elevated enzymes duloxetine [Cymbalta] Allergy (Intermediate, Verified 03/19/24 09:14) headache dapagliflozin [From [facility]] Adverse Reaction (Intermediate, Verified 03/19/24 09:14) Dizziness Medication List - Last Reconciled 03/19/24 by Tima Miller MD acetaminophen (Tylenol Extra Strength) 1,000 mg (2 x 500 mg) PO Q6H PRN 30 days alclometasone 0.05% appl topical BID PRN blood sugar diagnostic (FreeStyle Lite Strips) 3 times a day blood-glucose meter (FreeStyle Lite Meter kit) As directed 3x/day calcium carbonate 500 mg PO BID 30 days cholecalciferol (vitamin D3) 25 mcg PO DAILY diclofenac sodium 1% 2 grams topical BID PRN empagliflozin (Jardiance) 25 mg PO DAILY 90 days evolocumab (Repatha Pushtronex) 420 mg (3.5 mL) subcut .once a month 30 days ezetimibe 10 mg PO DAILY 90 days fluticasone propionate 50 mcg/actuation (Allergy Relief (fluticasone)) 1 spray intranasal DAILY PRN 30 days ibuprofen 600 mg PO Q8H PRN losartan 25 mg PO DAILY mecobalamin (vitamin B12) 1,000 mcg PO DAILY metformin 1,000 mg (2 x 500 mg) PO BID 90 days omeprazole 20 mg PO QAM PRN 90 days pyridoxine (vitamin B6) 100 mg PO DAILY 90 days repaglinide 1- 2 tabs prior to dinner PO daily; administer within 15 minutes of a meal or snack 30 days rosuvastatin 40 mg PO DAILY semaglutide (Ozempic) 2 mg (0.75 mL) subcut QWEEK 4 weeks tizanidine 2 mg PO Q8H PRN 30 days tramadol 50 mg PO BID PRN 30 days ursodiol 300 mg PO BID HPI Comments Details: This is a 63-year-old female who has been monitored periodically by Rheumatology for a positive rheumatoid factor. She states that her pains are worse. She has pain in her neck, hands, knees, ankles, she states that her left leg [place], especially at night. She states that she was evaluated by pain management and referred to PT. She completed PT and she did not get a follow-up appointment from pain management. [facility] Medical History Renal cyst Chronic GERD Polyarthralgia Left shoulder pain Right foot pain Renal calculus, bilateral Mild major depression, single episode Morbid obesity with BMI of 40.0-44.9, adult Diabetes type 2, uncontrolled Iron deficiency anemia Osteopenia Left foot pain Postmenopausal Vitamin D deficiency Elevated LFTs Thyroid nodule Type 2 diabetes mellitus with other diabetic kidney complication Proteinuria Hyperlipidemia LDL goal <100 Obesity due to excess calories Essential hypertension Pure hypercholesterolemia Venous thrombosis of upper extremity Diabetes mellitus, type II Spondylosis, cervical Fatty liver Metatarsalgia Arthropathy of knee Surgical History H/O colonoscopy History of extraction of renal calculus History of removal of cyst History of shoulder surgery History of cholecystectomy History of total abdominal hysterectomy and bilateral salpingo-oophorectomy Status post rotator cuff repair Family History Father Stomach cancer Liver cancer Mother Myocardial infarct Diabetes CVD (cardiovascular disease) Sister Cervical cancer Brother Murder Social History Household Members: Children Housing: House Alcohol intake: never Patient Tobacco Use Status: Never used Tobacco e-Cigarette/Vaping Use: Never Used Second Hand Smoke Exposure: No service: No Current occupational status: disabled Current occupation: right handed Cognitive needs: Yes (Pt use a cane) Hearing needs: No Vision needs: No Review of Systems ENT Reports neck pain Musc Reports back pain, Reports myalgias, Reports arthralgias, Reports limited range of motion, Reports neck pain and Reports numbness Neuro Reports numbness Physical Exam Vital Signs: Last Vital Signs Pulse 85 03/19/24 09:15 BP 122/80 03/19/24 09:15 Pulse Ox 98 03/19/24 09:15 Oxygen Delivery Method Room Air 03/19/24 09:15 BMI result Body Mass Index 37.7 Const General: cooperative, healthy appearing and comfortable Nutritional Appearance: obese morbidly obese Orientation/consciousness: patient oriented x3 Limitations: no limitations HEENT Head: Yes normocephalic and Yes atraumatic Mouth: moist mucous membranes Resp Effort & Inspection: normal respiratory effort and able to speak in complete sentences Neuro General: patient oriented x3 Extrem Other: Osteoarthritic changes of both hands with no active synovitis Normal range of motion of hands, wrists, elbows and shoulders without pain Mild knee pain with full flexion and extension bilaterally Few fibromyalgia tender points Assessment & Plan Assessment & Plan (1) Polyarthralgia: Code(s): M25.50 - Pain in unspecified joint Category: Medical Plan: This is a 63-year-old female who has been monitored periodically by Rheumatology for history of positive rheumatoid factor and associated polyarthralgias. Upon evaluation today I do not see any evidence of an autoimmune rheumatic disease. Clinical picture rather consistent with osteoarthritis and fibromyalgia. At this time, patient can follow-up as needed Plan I spent 15 minutes reviewing patient's chart, evaluating patient, counseling patient and documenting in the chart Coding Level of Care Code Est Pt Level 3 (77066) Diagnoses Polyarthralgia M25.50
[2024-03-19 09:15] VITALS: BP 122/80; PULSE 85; O2SAT 98; BMI 37.7
== END 2024-03-19 10:10 | disposition home or self-care (01) ==
PROVIDERS: PCP Internal Medicine; Visit Provider Student in an Organized Health Care Education/Training Program
DX: M25.50 Pain in unspecified joint (principal)
CPT/HCPCS: 99213

== ENCOUNTER → 2024-03-19 08:59 | Outpatient (BNVA) | payer OTHER, SELFPAY | PROVIDERS: PCP Internal Medicine; Visit Provider Student in an Organized Health Care Education/Training Program | DX: M25.50 Pain in unspecified joint (principal) | CPT/HCPCS: 99212 ==

== ENCOUNTER 2024-04-23 07:34 | Outpatient (REF) | payer OTHER, SELFPAY ==
--- NOTE | ~2024-04-23 | MM_ITS ---
EXAMINATION: MM SCREENING DIGITAL BREAST TOMOSYNTHESIS, BILATERAL CLINICAL INFORMATION: Screening. Asymptomatic. COMPARISON: Mammography: Comparison is made with available priors TECHNIQUE: Digital breast mammography with tomosynthesis is performed in both the craniocaudal and mediolateral oblique views along with computer-aided detection (CAD). FINDINGS: There are scattered areas of fibroglandular density (ACR BI-RADS breast composition Category b). Left: Asymmetries lateral breast middle depth on CC view. No suspicious calcifications or other abnormal findings. Right: Focal asymmetry in the upper outer breast with associated questioned distortion middle depth. No suspicious calcifications or other abnormal findings. MM/MM tomosynthesis screening BI IMPRESSION: Additional imaging is recommended ASSESSMENT: BI-RADS BI-RADS 0 - Incomplete: Needs additional Imaging. RECOMMENDATION: 1. Additional views of the bilateral breasts 2. Targeted ultrasound if warranted after review of the additional views. 3. Radiology department staff will contact the patient for additional imaging. 1 year F/U This examination should not preclude the clinical evaluation of a suspicious palpable abnormality. This patient's information was entered into a reminder system with a target due date for their next mammogram. Electronically signed by: Dominique Fischer DO 05/05/2024 07:09 PM EDT
== END 2024-04-23 07:35 | disposition home or self-care (01) ==
LOC: HO.MAMMO 07:34
PROVIDERS: PCP Internal Medicine; Visit Provider Internal Medicine
DX: Z12.31 Encounter for screening mammogram for malignant neoplasm of breast (principal)
CPT/HCPCS: 77063; 77067

== ENCOUNTER → 2024-04-23 08:00 | Outpatient (BNV) | payer OTHER, SELFPAY | PROVIDERS: PCP Internal Medicine; Visit Provider Internal Medicine | DX: Z12.31 Encounter for screening mammogram for malignant neoplasm of breast (principal) | CPT/HCPCS: 77063; 77067 ==

== ENCOUNTER 2024-05-20 07:18 | Outpatient (AMB) | payer OTHER, SELFPAY ==
--- NOTE | 2024-05-20 07:43 | A.OFFPC_ITS ---
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 Of Communication Required: No Accompanied by: Self / Same As Patient Allergies atorvastatin Allergy (Intermediate, Verified 05/20/24 08:01) elevated liver enzymes, elevated enzymes duloxetine [Cymbalta] Allergy (Intermediate, Verified 05/20/24 08:01) headache dapagliflozin [From [facility]] Adverse Reaction (Intermediate, Verified 05/20/24 08:01) Dizziness Medication List - Last Reconciled 05/20/24 by Yoli Padilla MD acetaminophen (Tylenol Extra Strength) 1,000 mg (2 x 500 mg) PO Q6H PRN 30 days alclometasone 0.05% appl topical BID PRN blood sugar diagnostic (FreeStyle Lite Strips) 3 times a day blood-glucose meter (FreeStyle Lite Meter kit) As directed 3x/day calcium carbonate 500 mg PO BID 30 days cholecalciferol (vitamin D3) 25 mcg PO DAILY diclofenac sodium 1% 2 grams topical BID PRN empagliflozin (Jardiance) 25 mg PO DAILY 90 days evolocumab (Repatha Pushtronex) 420 mg (3.5 mL) subcut .once a month 30 days ezetimibe 10 mg PO DAILY 90 days fluticasone propionate 50 mcg/actuation (Allergy Relief (fluticasone)) 1 spray intranasal DAILY PRN 30 days ibuprofen 600 mg PO Q8H PRN losartan 25 mg PO DAILY mecobalamin (vitamin B12) 1,000 mcg PO DAILY metformin 1,000 mg (2 x 500 mg) PO BID 90 days omeprazole 20 mg PO QAM PRN 90 days pyridoxine (vitamin B6) 100 mg PO DAILY 90 days repaglinide 1- 2 tabs prior to dinner PO daily; administer within 15 minutes of a meal or snack 30 days rosuvastatin 40 mg PO DAILY semaglutide (Ozempic) 2 mg (0.75 mL) subcut QWEEK 4 weeks tizanidine 2 mg PO Q8H PRN 30 days tramadol 50 mg PO BID PRN 30 days ursodiol 300 mg PO BID Tobacco use date assessed: 08/27/23 Fall risk assessment: No Falls in past year Last assessed Fall Risk: 10/16/24 Dental Screening Dental Screen Date: 05/20/24 Did you have a dental visit in the last 12 months?: Yes Did you have a dental problem in the last 6 months where you did not have access to dental care?: No Was dental information given to patient?: Patient has dentist HPI HPI Comments History of Present Illness Details This is a 64-year-old female with 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 A1c elevated and I will add repaglinide. For her microalbuminuria she follows with Nephrology. Last LDL was not on goal and she has not received the Repatha. She does not seem to compliant with rosuvastatin or Zetia. Blood pressure stable. Depression has been in remission. She has lumbar degenerative disc disease and was following with pain management but pain management recommended physical therapy which she did over a year ago and did not work. She was evaluated by Rheumatology to rule out rheumatoid arthritis which looks like what she has is fibromyalgia and I will start her on gabapentin at bedtime to see if this improves. [facility] Medical History (Updated 05/20/24 @ 08:27 by Yoli Padilla MD) Renal cyst Chronic GERD Polyarthralgia Left shoulder pain Right foot pain Renal calculus, bilateral Mild major depression, single episode Morbid obesity with BMI of 40.0-44.9, adult Diabetes type 2, uncontrolled Iron deficiency anemia Osteopenia Left foot pain Postmenopausal Vitamin D deficiency Elevated LFTs Thyroid nodule Type 2 diabetes mellitus with other diabetic kidney complication Proteinuria Hyperlipidemia LDL goal <100 Obesity due to excess calories Essential hypertension Pure hypercholesterolemia Venous thrombosis of upper extremity Diabetes mellitus, type II Spondylosis, cervical Fatty liver Metatarsalgia Arthropathy of knee Surgical History H/O colonoscopy History of extraction of renal calculus History of removal of cyst History of shoulder surgery History of cholecystectomy History of total abdominal hysterectomy and bilateral salpingo-oophorectomy Status post rotator cuff repair Family History Father Stomach cancer Liver cancer Mother Myocardial infarct Diabetes CVD (cardiovascular disease) Sister Cervical cancer Brother Murder Social History Household Members: Children Housing: House Alcohol intake: never Patient Tobacco Use Status: Never used Tobacco e-Cigarette/Vaping Use: Never Used Second Hand Smoke Exposure: No service: No Current occupational status: disabled Current occupation: right handed Cognitive needs: Yes (Pt use a cane) Hearing needs: No Vision needs: No Questionnaire Thrive Questionnaire Date Thrive assessed: 10/22/23 HENRIETTA-7 AMB Questionnaire HENRIETTA-7 Date HENRIETTA - 7 assessed: 10/22/23 Source: Developed by Drs. Kostas Simeon, Mary Smith, Lb Barrett and colleagues, with an educational rachael from [employer]. Review of Systems Const All systems reviewed & are unremarkable except as noted in HPI and below Card Denies chest pain at rest, Denies chest pain with activity, Denies edema, Denies irregular heart rhythm, Denies claudication, Denies dyspnea, Denies dyspnea on exertion, Denies orthopnea, Denies paroxysmal nocturnal dyspnea and Denies slow heart rate Resp Denies cough, Denies dyspnea and Denies dyspnea on exertion Physical exam (Primary Care) Vital Signs: Last Vital Signs BP 126/80 05/20/24 07:44 BMI result Body Mass Index 36.8 BMI Assessment/Plan discussion: High BMI High, discussed plan: lifestyle, weight reduction, dietary and physical activity Tobacco/Smoking Status: Tobacco use Status Tobacco use date assessed 08/27/23 05/20/24 07:50 Patient Tobacco Use Status Never used Tobacco 05/20/24 07:50 e-Cigarette/Vaping Use Never Used 05/20/24 07:50 Thrive Assessment: Date of Thrive Assessment Date Thrive assessed 10/22/23 05/20/24 07:50 Resp Effort & Inspection: normal respiratory effort Auscultation: clear to auscultation bilaterally Cardio Jugular venous distension: no JVD Rate: regular rate Rhythm: regular rhythm Heart sounds: S1 normal heart sound present and S2 normal heart sound present Extrem General: Yes full ROM Office Procedures Flu Questionnaire Does the patient have a severe egg allergy?: No Results AMB Hemoglobin A1c AMB Hemoglobin A1c 8.1 % Last Edit by ALFONSO Mims on 05/20/24 08:0 2 Immunizations Fluarix Triv [id number] (PF) 45 mcg (15 mcg x 3)/0.5 mL IM syringe Performing Provider: Yoli Padilla MD Performing Location: [facility] Documented (not given) by: ALFONSO Mims on 05/20/24 07:50 Reason Not Given: Patient Refused Coding Level of Care Code Est Pt Level 4 (31546) Complex EM visit Add On G2211 Diagnoses Hyperlipidemia LDL goal <70 E78.5 MDD (major depressive disorder), recurrent episode, moderate F33.1 Essential hypertension I10 Type 2 diabetes mellitus with other diabetic kidney complication E11.29 Degeneration of intervertebral disc of lumbar region with discogenic back pain M51.360 Disc-related pain type: discogenic back pain only Fibromyalgia M79.7 Time Spent (min) 24 Assessment & Plan Assessment & Plan (1) Hyperlipidemia LDL goal <70: Code(s): E78.5 - Hyperlipidemia, unspecified Category: Medical Plan: Be compliant with statins, Zetia and Repatha. LDL goal is less than 70. Be compliant with a low-cholesterol diet. (2) MDD (major depressive disorder), recurrent episode, moderate: Code(s): F33.1 - Major depressive disorder, recurrent, moderate Category: Medical Plan: In remission. (3) Essential hypertension: Code(s): I10 - Essential (primary) hypertension Category: Medical Plan: Continue losartan. Blood pressure goal is equal or less than 130/80. (4) Type 2 diabetes mellitus with other diabetic kidney complication: Code(s): E11.29 - Type 2 diabetes mellitus with other diabetic kidney complication Category: Medical Plan: Continue metformin, Jardiance and Ozempic. Start repaglinide. A1c goal is equal or less than 7%. (5) Disc degeneration, lumbar: Code(s): M51.36 - Other intervertebral disc degeneration, lumbar region Category: Medical Qualifiers: Disc-related pain type: discogenic back pain only Qualified Code(s): M51.360 - Other intervertebral disc degeneration, lumbar region with discogenic back pain only Plan: Start gabapentin. (6) Fibromyalgia: Code(s): M79.7 - Fibromyalgia Category: Medical Plan: Start gabapentin. Orders: Orders AMB Hemoglobin A1c Today E11.65 - Type 2 diabetes mellitus with hyperglycemia Vitamin D 25-OH Total 4 Months E55.9 - Vitamin D deficiency, unspecified Comprehensive [place]. Panel Fast 4 Months E11.65 - Type 2 diabetes mellitus with hyperglycemia Influenza [id number] Immunization Today Z23 - Encounter for immunization Vitamin B12 and Folate 4 Months E53.8 - Deficiency of other specified B group vitamins Lipid Panel 4 Months E78.5 - Hyperlipidemia, unspecified Microalbumin, Random (w Creat) 4 Months R80.9 - Proteinuria, unspecified Medications: New gabapentin 100 mg PO BEDTIME 30 days 30 caps 0RF Changed From mecobalamin (vitamin B12) 1,000 mcg PO DAILY To mecobalamin (vitamin B12) 1,000 mcg PO DAILY 90 days 90 tabs 3RF From losartan 25 mg PO DAILY To losartan 25 mg PO DAILY 90 days 90 tabs 1RF Refilled repaglinide 1- 2 tabs prior to dinner PO daily; administer within 15 minutes of a meal or snack 30 days 60 tabs 2RF pyridoxine (vitamin B6) 100 mg PO DAILY 90 days 90 tabs 2RF M79.671 - Pain in right foot, M79.672 - Pain in left foot metformin 1,000 mg (2 x 500 mg) PO BID 90 days 360 tabs 6RF E11.29 - Type 2 diabetes mellitus with other diabetic kidney complication ezetimibe 10 mg PO DAILY 90 days 90 tabs 0RF evolocumab (Repatha Pushtronex) 420 mg (3.5 mL) subcut .once a month 30 days 3.5 mL 5RF cholecalciferol (vitamin D3) 25 mcg PO DAILY 30 tabs 3RF E55.9 - Vitamin D deficiency, unspecified omeprazole 20 mg PO QAM 90 days PRN 90 caps 1RF heartburn empagliflozin (Jardiance) 25 mg PO DAILY 90 days 90 tabs 1RF E11.9 - Type 2 diabetes mellitus without complications calcium carbonate 500 mg PO BID 30 days 60 tabs 6RF M85.80 - Other specified disorders of bone density and structure, unspecified site
[2024-05-20 07:44] VITALS: BP 126/80; BMI 36.8
== END 2024-05-20 08:08 | disposition home or self-care (01) ==
PROVIDERS: PCP Internal Medicine; Visit Provider Internal Medicine
DX: E78.5 Hyperlipidemia, unspecified (principal); F33.1 Major depressive disorder, recurrent, moderate; I10 Essential (primary) hypertension; E11.29 Type 2 diabetes mellitus with other diabetic kidney complication; M51.360 Other intervertebral disc degeneration, lumbar region with discogenic back pain only; M79.7 Fibromyalgia; Z23 Encounter for immunization; E11.65 Type 2 diabetes mellitus with hyperglycemia

== ENCOUNTER → 2024-05-20 07:18 | Outpatient (BNVA) | payer OTHER, SELFPAY | PROVIDERS: PCP Internal Medicine; Visit Provider Internal Medicine | DX: E78.5 Hyperlipidemia, unspecified (principal); F33.1 Major depressive disorder, recurrent, moderate; I10 Essential (primary) hypertension; E11.29 Type 2 diabetes mellitus with other diabetic kidney complication; M51.360 Other intervertebral disc degeneration, lumbar region with discogenic back pain only; M79.7 Fibromyalgia; Z79.84 Long term (current) use of oral hypoglycemic drugs; Z79.899 Other long term (current) drug therapy | CPT/HCPCS: 83036; 90471; 99212 ==

== ENCOUNTER → 2024-06-05 08:48 | Outpatient (BNVA) | payer OTHER, SELFPAY | PROVIDERS: PCP Internal Medicine; Visit Provider Internal Medicine ==

== ENCOUNTER 2024-06-11 07:08 | Outpatient (REF) | payer OTHER, SELFPAY ==
[2024-06-11 07:30] LABS: MANUAL DIFF FLAG NO
[2024-06-11 07:33] LABS: Basophils Percent Auto 0.3 % (0-2); Eosinophils Percent Auto 0.6 % (0-4); Hemoglobin 14.5 g/dl (12.0-16.0); Imm Gran Abs Auto 0.02 X10*3/uL (0.00-0.03); Imm Gran Pct Auto 0.3 % (0.0-0.4); Lymphocytes Absolute Auto 3.1 X10*3/uL (1.2-4.9); Lymphocytes Percent Auto 46.2 % (20-40); Mean Corpuscular HGB Conc 33.7 g/dl (31.0-35.0); Mean Corpuscular Hemoglobin 29.8 pg (27.0-33.0); Mean Corpuscular Volume 88.5 fL (80.0-98.0); Mean Platelet Volume 9.1 fL (9.4-12.3); Monocytes Absolute Auto 0.4 X10*3/uL (0.1-1.2); Neutrophils Absolute Auto 3.2 x10*3/uL (2.0-8.3); Neutrophils Percent Auto 46.6 % (45-73); Platelet Count 193 X10*3/uL (160-400); Red Blood Count 4.86 X10*6/uL (4.20-5.50); Red Cell Distribution Width 13.2 % (11.0-16.0); White Blood Count 6.8 X10*3/uL (4.8-10.8)
[2024-06-11 07:37] LABS: Prothrombin Time 11.5 SEC (10.9-12.4)
[2024-06-11 07:46] LABS: Alanine Aminotransferase 33 U/L (0-31); Albumin Level 4.3 g/dL (3.5-5.0); Alkaline Phosphatase 94 U/L (39-117); Anion Gap 14 (12-20); Aspartate Amino Transferase 31 U/L (5-31); Bilirubin Direct 0.1 mg/dL (0.0-0.5); Bilirubin Total 0.4 mg/dL (0.0-1.0); Blood Urea Nitrogen 13 mg/dL (9-16); Calcium 9.5 mg/dL (8.4-10.2); Carbon Dioxide 23 mmol/L (22-29); Chloride 107 mmol/L (96-108); Cholesterol 217 mg/dL (<200); Estimated Glomerular Filt Rate > 60; Glucose Fasting 169 mg/dL (60-99); HDL Cholesterol 55 mg/dL (>40); LDL Cholesterol Calculated 131 mg/dL (<100); Potassium 3.8 mmol/L (3.3-5.1); Sodium 140 mmol/L (135-145); Total Protein 7.7 g/dL (6.5-8.0); Triglycerides 156 mg/dL (<150)
[2024-06-11 08:07] LABS: Vitamin D 25-OH Total 27.9 ng/mL (>30)
[2024-06-11 08:19] LABS: Microalbum/Creatinine Ratio Ur 171.9 ug/mg cr (<30)
[2024-06-11 08:20] LABS: Folate 14.7 ng/mL (> or = 4.0); Vitamin B12 804 pg/mL (200-900)
[2024-06-12 13:14] LABS: Alpha Fetoprotein 5.5 ng/mL
[2024-06-16 20:13] LABS: Lipoprotein A 160 nmol/L (<75)
[2024-06-16 22:13] LABS: Apolipoprotein B 121 mg/dL (<90)
[2024-06-17 01:20] LABS: Lipoprotein Asso Phospholip A2 106 (<124)
[2024-06-19 03:19] LABS: FIB-ALT 24 U/L (6-29); FIB-Alpha-2-Macroglobulin 227 mg/dL (106-279); FIB-Apolipoprotein A1 183 mg/dL (101-198); FIB-GGT 17 U/L (3-65); FIB-Haptoglobin 138 mg/dL (43-212); FIB-Total Bilirubin 0.4 mg/dL (0.2-1.2); Liver Fibrosis Score 0.14; Liver Fibrosis Stage F0; Nec Inflam Act Grade A0; Nec Inflam Act Score 0.08; Reference ID 5202429
== END 2024-06-11 07:09 | disposition home or self-care (01) ==
LOC: HO.US 07:08
PROVIDERS: Absent Provider Internal Medicine; PCP Internal Medicine; Visit Provider Internal Medicine
DX: E11.9 Type 2 diabetes mellitus without complications (principal); E78.5 Hyperlipidemia, unspecified; E53.8 Deficiency of other specified B group vitamins; E55.9 Vitamin D deficiency, unspecified; K76.0 Fatty (change of) liver, not elsewhere classified; R74.8 Abnormal levels of other serum enzymes; K74.00 Hepatic fibrosis, unspecified
CPT/HCPCS: 36415; 76700; 76981; 80053; 80061; 80076; 81596; 82043; 82105; 82172; 82248; 82306; 82570; 82607; 82746; 83695; 83698; 85025; 85610

== ENCOUNTER 2024-07-23 09:59 | Outpatient (AMB) | payer OTHER, SELFPAY ==
[2024-07-23 10:05] VITALS: BP 118/82; BMI 36.3
--- NOTE | 2024-07-23 10:05 | MHC.PC.OV ---
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 Management Required: No Accompanied by: Self / Same As Patient Allergies atorvastatin Allergy (Intermediate, Verified 07/23/24 10:16) elevated liver enzymes, elevated enzymes duloxetine [Cymbalta] Allergy (Intermediate, Verified 07/23/24 10:16) headache dapagliflozin [From [facility]] Adverse Reaction (Intermediate, Verified 07/23/24 10:16) Dizziness Medication List - Last Reconciled 07/23/24 by Yoli Padilla MD acetaminophen (Tylenol Extra Strength) 1,000 mg (2 x 500 mg) PO Q6H PRN 30 days alclometasone 0.05% appl topical BID PRN blood sugar diagnostic (FreeStyle Lite Strips) 3 times a day blood-glucose meter (FreeStyle Lite Meter kit) As directed 3x/day calcium carbonate 500 mg PO BID 30 days cholecalciferol (vitamin D3) 25 mcg PO DAILY diclofenac sodium 1% 2 grams topical BID PRN empagliflozin (Jardiance) 25 mg PO DAILY 90 days evolocumab (Repatha Pushtronex) 420 mg (3.5 mL) subcut Q4W 90 days ezetimibe 10 mg PO DAILY 90 days fluticasone propionate 50 mcg/actuation (Allergy Relief (fluticasone)) 1 spray intranasal DAILY PRN 30 days gabapentin 100 mg PO BEDTIME 30 days ibuprofen 600 mg PO Q8H PRN losartan 25 mg PO DAILY 90 days mecobalamin (vitamin B12) 1,000 mcg PO DAILY 90 days metformin 1,000 mg (2 x 500 mg) PO BID 90 days omeprazole 20 mg PO QAM PRN 90 days pyridoxine (vitamin B6) 100 mg PO DAILY 90 days repaglinide 1- 2 tabs prior to dinner PO daily; administer within 15 minutes of a meal or snack 30 days rosuvastatin 40 mg PO DAILY semaglutide (Ozempic) 2 mg (0.75 mL) subcut QWEEK 4 weeks tizanidine 2 mg PO Q8H PRN 30 days tramadol 50 mg PO BID PRN 30 days ursodiol 300 mg PO BID Tobacco use date assessed: 08/27/23 Fall risk assessment: No Falls in past year Last assessed Fall Risk: 07/23/24 Dental Screening Dental Screen Date: 05/20/24 HPI HPI Comments History of Present Illness Details The patient is a 64-year-old female presenting for an annual physical examination. Osteopenia was diagnosed in 2022, with a follow-up bone density scan recommended in 2024. There is a strong family history of hyperlipidemia; the patient's mother from complications related to this, and her sister has undergone repeated cardiac interventions. The patient is managing diabetes with empagliflozin (Jardiance) 25 mg daily. Review of adverse reactions includes elevated hepatic enzymes with atorvastatin, headaches with duloxetine, and dizziness with dapagliflozin. The patient's tetanus vaccination was last updated in 2013, but she declined the current booster due to recent discomfort. Colonoscopy was performed in 2021; although results were benign, the preparation was suboptimal, prompting a recommendation for repeat screening in 2026. Mammography, initially scheduled for earlier months, has been deferred to August 18, 2023, to obtain additional imaging for comprehensive assessment. The patient takes occasional acetaminophen and calcium supplements, two tablets daily. - The patient declined the tetanus vaccine due to personal health concerns. - Recommendations include follow-up bone density scan in 2024 for osteopenia monitoring. - Repeating colonoscopy is advised in 2026 due to limited preparation during the last procedure. - Scheduled mammogram for additional imaging on August 18, 2023, to clarify current findings. [facility] Medical History Renal cyst Chronic GERD Polyarthralgia Left shoulder pain Right foot pain Renal calculus, bilateral Mild major depression, single episode Morbid obesity with BMI of 40.0-44.9, adult Diabetes type 2, uncontrolled Iron deficiency anemia Osteopenia Left foot pain Postmenopausal Vitamin D deficiency Elevated LFTs Thyroid nodule Type 2 diabetes mellitus with other diabetic kidney complication Proteinuria Hyperlipidemia LDL goal <100 Obesity due to excess calories Essential hypertension Pure hypercholesterolemia Venous thrombosis of upper extremity Diabetes mellitus, type II Spondylosis, cervical Fatty liver Metatarsalgia Arthropathy of knee Surgical History H/O colonoscopy History of extraction of renal calculus History of removal of cyst History of shoulder surgery History of cholecystectomy History of total abdominal hysterectomy and bilateral salpingo-oophorectomy Status post rotator cuff repair Family History Father Stomach cancer Liver cancer Mother Myocardial infarct Diabetes CVD (cardiovascular disease) Sister Cervical cancer Brother Murder Social History Household Members: Children Housing: House Alcohol intake: never Patient Tobacco Use Status: Never used Tobacco e-Cigarette/Vaping Use: Never Used Second Hand Smoke Exposure: No service: No Current occupational status: disabled Current occupation: right handed Cognitive needs: Yes (Pt use a cane) Hearing needs: No Vision needs: No Questionnaire PHQ-9 Over the last 2 weeks, how often have you been bothered by any of the following problems? 1. Little interest or pleasure in doing things: not at all 2. Feeling down, depressed, or hopeless: not at all 3. Trouble falling or staying asleep, or sleeping too much: not at all 4. Feeling tired or having little energy: not at all 5. Poor appetite or overeating: not at all 6. Feeling bad about yourself - or that you are a failure or have let yourself or your family down: not at all 7. Trouble concentrating on things, such as reading the newspaper or watching television: not at all 8. Moving or speaking so slowly that other people could have noticed. Or the opposite - being so fidgety or restless that you have been moving around a lot more than usual: not at all 9. Thoughts that you would be better off or of hurting yourself in some way: not at all Total score: 0 Depression Screening Interpretation: Negative Depression Screening Done: Yes 90051 - PHQ-9 Billing: Yes Source: Developed by Drs. Kostas Simeon, Mary Smith, Lb Barrett and colleagues, with an educational rachael from [employer]. Thrive Questionnaire Date Thrive assessed: 07/17/24 I am a: Patient What is your living situation today?: I have a place to live, but I am worried about losing it in the future Within the past 12 months, did the food you bought not last and you didn't have the money to get more?: Often true Within the past 12 months, did you worry whether your food would run out before you got money to buy more?: Often true Do you have trouble paying for medicines?: No Do you have trouble getting transportation to medical appointments?: Yes Do you have trouble paying your heating and electricity bill?: I choose not to answer this question Do you have trouble taking care of your child, family member or friend?: No Do you have trouble with day-to-day activities such as bathing, preparing meals, shopping, managing finances, etc.?: Yes Are you currently unemployed and looking for a job?: No Are you interested in more education?: I choose not to answer this question Please select the resources that you would like help with: None Currently or been in a relationship where the following occur: I choose not to answer THRIVE Score: 4 AUDIT C Alcohol Use Questionnaire (AUDIT-C) 1. How often do you have a drink containing alcohol?: Never Total Score: 0 Score Reviewed/Action Taken: No HENRIETTA-7 AMB Questionnaire HENRIETTA-7 Date HENRIETTA - 7 assessed: 10/22/23 Feeling nervous, anxious, or on edge: 0 = Not at all Not being able to stop or control worryin = Not at all Worrying too much about different things: 0 = Not at all Trouble relaxin = Not at all Being so restless that it is hard to sit still: 0 = Not at all Becoming easily annoyed or irritable: 0 = Not at all Feeling afraid as if something awful might happen: 0 = Not at all Total HENRIETTA-7 score (0-4 normal; 5-9 mild; 10-14 moderate; 15-21 severe): 0 Source: Developed by Drs. Kostas Simeon, Mary Smith, Lb Barrett and colleagues, with an educational rachael from [employer]. HENRIETTA-7 Assessment Billing HENRIETTA-7 Assessment Tool: HENRIETTA-7 Assessment 56048 Review of Systems Const All systems reviewed & are unremarkable except as noted in HPI and below Card Denies chest pain at rest, Denies chest pain with activity, Denies edema, Denies irregular heart rhythm, Denies claudication, Denies dyspnea, Denies dyspnea on exertion, Denies orthopnea, Denies paroxysmal nocturnal dyspnea and Denies slow heart rate Resp Denies cough, Denies dyspnea and Denies dyspnea on exertion GI Denies abdominal pain, Denies change in bowel habits, Denies excessive flatus, Denies nausea and Denies vomiting Denies urinary incontinence, Denies urinary hesitancy and Denies urinary urgency Musc Reports back pain and Reports arthralgias Physical exam (Primary Care) Vital Signs: Last Vital Signs BP 118/82 07/23/24 10:05 BMI result Body Mass Index 36.3 BMI Assessment/Plan discussion: High BMI High, discussed plan: lifestyle, weight reduction, dietary and physical activity Tobacco/Smoking Status: Tobacco use Status Tobacco use date assessed 08/27/23 07/23/24 10:12 Patient Tobacco Use Status Never used Tobacco 07/23/24 10:12 e-Cigarette/Vaping Use Never Used 07/23/24 10:12 PHQ-9: PHQ-9 Score PHQ-9: Total score 0 07/23/24 10:12 Depression Screening Interpretation: Negative Thrive Assessment: Date of Thrive Assessment Date Thrive assessed 07/17/24 07/23/24 10:12 Currently or been in a relationship where the following occur: I choose not to answer HENWI Head: Yes normal to inspection, Yes normocephalic and Yes atraumatic Ears: external ears normal Eyes General: appearance normal, both eyes and all related structures Eyelids: Yes eyelids normal Conjunctivae: conjunctivae normal Neck Neck: Yes normal visual inspection and Yes supple Resp Effort & Inspection: normal respiratory effort Auscultation: clear to auscultation bilaterally Cardio Jugular venous distension: no JVD Rate: regular rate Rhythm: regular rhythm Heart sounds: S1 normal heart sound present and S2 normal heart sound present GI Inspection: Yes normal to inspection Palpation (GI): Soft to palpation and nontender Auscultation: normal bowel sounds Skin General skin exam: no rashes or lesions noted Neuro General: no focal motor deficits Extrem General: Yes full ROM Psych Appearance: grossly normal Coding Level of Care Code Est Pt Prev Care 40-64y(56535) Diagnoses Physical exam Z00.00 Type 2 diabetes mellitus with hyperglycemia, without long-term current use of insulin E11.65 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 mellitus termite technician insulin use: without termite technician use Diabetes mellitus complication status: with hyperglycemia MDD (major depressive disorder), recurrent episode, moderate F33.1 Additional Codes PHQ-9 - 81163 - PHQ-9 Billing: Yes ([id number]) HENRIETTA-7 Assessment Billing - HENRIETTA-7 Assessment Tool: HENRIETTA-7 Assessment 10742 ([id number]) Time Spent (min) 32 Assessment & Plan Assessment & Plan (1) Physical exam: Code(s): Z00.00 - Encounter for general adult medical examination without abnormal findings Category: Medical (2) Diabetes mellitus, type II: Code(s): E11.9 - Type 2 diabetes mellitus without complications Category: Medical Qualifiers: Diabetes mellitus termite technician insulin use: without senior living use Diabetes mellitus complication status: with hyperglycemia Qualified Code(s): E11.65 - Type 2 diabetes mellitus with hyperglycemia (3) MDD (major depressive disorder), recurrent episode, moderate: Code(s): F33.1 - Major depressive disorder, recurrent, moderate Category: Medical Plan - Continue current diabetes management with empagliflozin 25 mg. - Monitor adverse drug reactions, avoidance of atorvastatin, duloxetine, and dapagliflozin is advised due to reported side effects. - Schedule follow-up for mammography and bone density assessment as planned. Patient was informed and verbally consented to the use of an ambient scribe for clinic note documentation during this visit. During our discussion, I emphasized the importance of maintaining a schedule for preventative screenings, particularly the mammogram for which additional imaging is required. We reviewed the relevance of her family history in managing hyperlipidemia and the necessity of monitoring diabetes to prevent further complications. I supported her choice to defer the tetanus booster, respecting her current state of discomfort. We agreed on the plan for further diagnostics and health assessments. Orders: Orders Vitamin B12 and Folate 4 Months E53.8 - Deficiency of other specified B group vitamins Complete Blood Count Auto Diff 4 Months D64.9 - Anemia, unspecified Vitamin D 25-OH Total 4 Months E55.9 - Vitamin D deficiency, unspecified Lipid Panel 4 Months E78.5 - Hyperlipidemia, unspecified Microalbumin, Random (w Creat) 4 Months R80.9 - Proteinuria, unspecified Comprehensive [place]. Panel Fast 4 Months E78.49 - Other hyperlipidemia Medications: Changed From evolocumab (Repatha Pushtronex) 420 mg (3.5 mL) subcut .once a month 30 days 3.5 mL 5RF E78.49 - Other hyperlipidemia To evolocumab (Repatha Pushtronex) 420 mg (3.5 mL) subcut Q4W 90 days 14 mL 3RF E78.49 - Other hyperlipidemia Refilled semaglutide (Ozempic) 2 mg (0.75 mL) subcut QWEEK 4 weeks 3 mL 6RF Patient Instructions: - Continue taking empagliflozin 25 mg daily for diabetes control. - Attend scheduled mammogram on August 18, 2023, for further evaluation. - Plan for future bone density monitoring in 2024. - Return for repeat colonoscopy in 2026 following previous limited preparation. - Discuss any new or worsening symptoms or side effects from medications promptly.
== END 2024-07-23 10:33 | disposition home or self-care (01) ==
PROVIDERS: PCP Internal Medicine; Visit Provider Internal Medicine
DX: Z00.00 Encounter for general adult medical examination without abnormal findings (principal); E11.65 Type 2 diabetes mellitus with hyperglycemia; F33.1 Major depressive disorder, recurrent, moderate

== ENCOUNTER → 2024-07-23 09:59 | Outpatient (BNVA) | payer OTHER, SELFPAY | PROVIDERS: PCP Internal Medicine; Visit Provider Internal Medicine | DX: Z00.00 Encounter for general adult medical examination without abnormal findings (principal); E78.5 Hyperlipidemia, unspecified; E11.65 Type 2 diabetes mellitus with hyperglycemia; F33.1 Major depressive disorder, recurrent, moderate; E53.8 Deficiency of other specified B group vitamins; D64.9 Anemia, unspecified; E55.9 Vitamin D deficiency, unspecified; R80.9 Proteinuria, unspecified; E78.49 Other hyperlipidemia; Z71.85 Encounter for immunization safety counseling | CPT/HCPCS: 96127; 99396 ==

== ENCOUNTER 2024-08-18 10:10 | Outpatient (REF) | payer OTHER, SELFPAY ==
--- NOTE | ~2024-08-18 | US_ITS ---
EXAMINATION: MM DIAGNOSTIC DIGITAL BREAST TOMOSYNTHESIS, BILATERAL Bilateral Limited ultrasound. CLINICAL INFORMATION: Call back from screening for bilateral asymmetries. COMPARISON: Mammography: Comparison is made with relevant prior exams. TECHNIQUE: Digital breast mammography with tomosynthesis is performed in both the craniocaudal and mediolateral oblique views along with computer-aided detection (CAD). Bilateral Limited ultrasound. FINDINGS: The breasts are heterogeneously dense, which may obscure small masses (ACR BI-RADS breast composition Category c). Left: Asymmetries in the lateral left breast on CC view do not persist on additional imaging projections and are stable dating back to 2019 on prior mammogram images. No suspicious calcifications masses or other abnormal findings. Targeted color Doppler ultrasound scanning in the left breast from 12- 6:00 demonstrates normal fibroglandular breast tissue. There is no sonographic abnormality. Right: Asymmetry in the superior and lateral breast middle to posterior depth partially effaces on additional imaging projections. No suspicious calcifications or other abnormal findings. Targeted color Doppler ultrasound was performed from 8-12 o'clock in the lateral right breast. There is an incidental simple cyst at o'clock 8 cm from the nipple measuring 4 x 4 x 5 mm. Otherwise there is just normal fibroglandular breast tissue. There is no sonographic abnormality. Results are provided to the patient at time of visit by the technologist. US/US breast BI limited mamm only IMPRESSION: Left: Benign. Right: Asymmetries in the superior breast and lateral breast middle to posterior depth without sonographic correlate which partially effaces on imaging projections. Recommend 6 month follow-up right breast mammography for further evaluation of stability. ASSESSMENT: BI-RADS BI-RADS 3 - Probably benign finding(s) - 6 month follow-up suggested RECOMMENDATION: 6 Month F/U This patient's information was entered into a reminder system with a target due date for their next mammogram. Electronically signed by: Dominique Fischer DO 08/18/2024 12:00 PM [facility]
== END 2024-08-18 10:11 | disposition home or self-care (01) ==
LOC: HO.MAMMO 10:10
PROVIDERS: PCP Internal Medicine; Visit Provider Internal Medicine
DX: N64.89 Other specified disorders of breast (principal)
CPT/HCPCS: 76642; 77062; 77066

== ENCOUNTER → 2024-08-18 10:45 | Outpatient (BNV) | payer OTHER, SELFPAY | PROVIDERS: PCP Internal Medicine; Visit Provider Internal Medicine | DX: R92.8 Other abnormal and inconclusive findings on diagnostic imaging of breast (principal) | CPT/HCPCS: 76642; 77062; 77066 ==

== ENCOUNTER 2024-11-06 13:11 | Outpatient (REF) | payer OTHER, SELFPAY ==
[2024-11-06 14:35] LABS: MANUAL DIFF FLAG NO
[2024-11-06 15:25] LABS: Basophils Percent Auto 0.3 % (0-2); Eosinophils Percent Auto 0.3 % (0-4); Hematocrit 45.1 % (37.0-47.0); Hemoglobin 15.1 g/dl (12.0-16.0); Imm Gran Abs Auto 0.03 X10*3/uL (0.00-0.03); Imm Gran Pct Auto 0.3 % (0.0-0.4); Lymphocytes Absolute Auto 2.7 X10*3/uL (1.2-4.9); Lymphocytes Percent Auto 23.5 % (20-40); Mean Corpuscular HGB Conc 33.5 g/dl (31.0-35.0); Mean Corpuscular Hemoglobin 29.3 pg (27.0-33.0); Mean Corpuscular Volume 87.6 fL (80.0-98.0); Mean Platelet Volume 9.4 fL (9.4-12.3); Monocytes Absolute Auto 0.7 X10*3/uL (0.1-1.2); Monocytes Percent Auto 5.8 % (2-11); Neutrophils Percent Auto 69.8 % (45-73); Platelet Count 201 X10*3/uL (160-400); Red Blood Count 5.15 X10*6/uL (4.20-5.50); Red Cell Distribution Width 13.7 % (11.0-16.0); White Blood Count 11.4 X10*3/uL (4.8-10.8)
--- OUTSIDE RECORDS SUMMARY | 2024-11-06 15:56 | XMS_ITS | Encounter Summary ---
Author Organization [facility] Address [address] [place] [address] Phone Care Team Providers Care Optical Goods Drill Operator Name Role Phone Yoli Townsend MD Primary Care Provider [phone] Encounter Details Date Type Department Care Team (Late st Contact Info) Description 06/23/2024 Office Communication [facility] [address] [place] [address] Chester Ventura MD [address] [facility] [place] [address] Social History Tobacco Use Types [...] Visit [facility] [address] [place] [address] Chester Ventura MD [address] [facility] [place] [address] documented as of this encounter Visit Diagnoses Not on filedocumented in this encounter Care Teams Optical Goods Drill Operator Relationship Specialty Start Date End Date Yoli Townsend MD [address] [place], [place] PCP - General 06/09/19 documented as of this encounter
--- OUTSIDE RECORDS SUMMARY | 2024-11-06 15:56 | XMS_ITS | Encounter Summary ---
Author Organization [facility] Address [address] [place] [address] Phone Care Team Providers Care Dish Room Worker Name Role Phone Yoli Townsend MD Primary Care Provider [phone] Encounter Details Date Type Department Care Team (Late st Contact Info) Description 10/08/2023 Documentation Only [facility] [address] [place] [address] Liliya Pérez [address] [place] [address] Social History Tobacco Use Types [...] Visit [facility] [address] [place] [address] Chester Ventura MD [address] [place] [address] [place] [address] documented as of this encounter Visit Diagnoses Not on filedocumented in this encounter Care Teams Dish Room Worker Relationship Specialty Start Date End Date Yoli Townsend MD [address] [place], [place] PCP - General 06/09/19 documented as of this encounter
--- OUTSIDE RECORDS SUMMARY | 2024-11-06 15:56 | XMS_ITS | Clinical Summary ---
Author Organization [facility] [place], Address [address] [place] [address] [place] [address] Phone Care Team Providers Care Wood Car Builder Name Role Phone Yoli Townsend MD Primary Care Provider [phone] Allergies Active Allergy Reactions Criticality Noted Date [...] 0 Active ergocalciferol (VITAMIN D2) 1.25 MG (60156 UT) capsule TOME 1 CAPSULA POR VIA [...] Hypertension Father Diabetes Mother Heart disease Mother [place] Hypertension Mother Cancer Sister Relation Status Comments [...] Visit [facility] [place], [address] [place] [address] Chester Ventura MD [address] [facility] [address] [place] [address] Health Maintenance Due Date Last Done Comments [...] PM EDT) Hemoglobin A1C 8.1(H) (4-6) % [place] [address] Comment: HEMOGLOBIN A1C(%) ?? GLUCOSE CONTROL INDEX ?<6% ? EXCELLENT ?6-7% ?VERY GOOD ?7-8% ?GOOD ?8-10% ? FAIR ?>10% ?POOR Hemoglobin (Hb) A1c testing is performed by Lary Roselyn-quant immunoassay. Any cause of shortened erythrocyte survival will reduce exposure of erythrocytes to glucose with a consequent decrease in Hb A1c (%). Testing performed or reported by ~[facility], ~a Service of [facility], ~[address] [place] [address] [place] [address]~ 02/09/2019 3:56 PM EDT us Chester Ventura MD LAB BLOOD ORDERABLES Final Resul t [id number] from Last 3 Months or Most Recently Relevant to Health Maintenance Insurance [facility] Care Teams Wood Car Builder Relationship Specialty Start Date End Date Yoli Townsend MD [address] [place], [place] PCP - General 06/09/19
--- OUTSIDE RECORDS SUMMARY | 2024-11-06 15:56 | XMS_ITS | Encounter Summary ---
Author Organization [facility] Address [address] [place] [address] Phone Care Team Providers Care Dining Services Manager Name Role Phone Yoli Townsend MD Primary Care Provider [phone] Encounter Details Date Type Department Care Team (Late st Contact Info) Description 10/07/2023 Documentation Only [facility] [address] [place] [address] Liliya Pérez [address] [place] [address] Social History Tobacco Use Types [...] Visit [facility] [address] [place] [address] Chester Ventura MD [address] [place] [address] [place] [address] documented as of this encounter Visit Diagnoses Not on filedocumented in this encounter Care Teams Dining Services Manager Relationship Specialty Start Date End Date Yoli Townsend MD [address] [place], [place] PCP - General 06/09/19 documented as of this encounter
--- OUTSIDE RECORDS SUMMARY | 2024-11-06 15:56 | XMS_ITS | Encounter Summary ---
Author Organization [facility] Address [address] [place] [address] Phone Care Team Providers Care Space Officer Name Role Phone Yoli Townsend MD Primary Care Provider [phone] Encounter Details Date Type Department Care Team (Late Contact Info) Description 06/10/2023 Documentation Only [facility] Dr [address] [place] [address] Chester Ventura MD [address] [place] [address] [place] [address] Social History Tobacco Use Types [...] Visit [facility] [address] [place] [address] Chester Ventura MD [address] [facility] [place] [place] [address] documented as of this encounter Visit Diagnoses Not on filedocumented in this encounter Care Teams Space Officer Relationship Specialty Start Date End Date Yoli Townsend MD [address] [place], [place] PCP - General 06/09/19 documented as of this encounter
--- OUTSIDE RECORDS SUMMARY | 2024-11-06 15:56 | XMS_ITS | Encounter Summary ---
Author Organization [facility] Address [address] [place] [address] Phone Care Team Providers Care Rehabilitation Services Counselor Name Role Phone Yoli Townsend MD Primary Care Provider [phone] Encounter Details Date Type Department Care Team (Late Contact Info) Description 06/06/2022 Documentation Only [facility] [address] [place] [place] [address] Chester Ventura MD [address] [place] [address] [place] [address] Social History Tobacco Use Types [...] Visit [facility] [address] [place] [place] [address] Chester Ventura MD [address] [place] [address] [place] [address] documented as of this encounter Visit Diagnoses Not on filedocumented in this encounter Care Teams Rehabilitation Services Counselor Relationship Specialty Start Date End Date Yoli Townsend MD [address] [place], [place] PCP - General 06/09/19 documented as of this encounter
--- OUTSIDE RECORDS SUMMARY | 2024-11-06 15:56 | XMS_ITS | Encounter Summary ---
Author Organization [facility], Address [address] [place] [address] Phone Care Team Providers Care Bank Representative Name Role Phone Yoli Townsend MD Primary Care Provider [phone] Reason for Visit * Reason Comments Med Refill Encounter Details Date Type Department Care Team (Late Contact Info) Description 02/17/2020 Refill [facility] [address] [place] [address] Chester Ventura MD [address] [facility] [place] [address] Social History Tobacco Use Types [...] Visit [facility] [place], [address] [facility] [place] [address] Chester Ventura MD [address] [facility] [place] [address] documented as of this encounter Visit Diagnoses Not on filedocumented in this encounter Care Teams Bank Representative Relationship Specialty Start Date End Date Yoli Townsend MD [address] [place] PCP - General 06/09/19 documented as of this encounter
--- OUTSIDE RECORDS SUMMARY | 2024-11-06 15:56 | XMS_ITS | Encounter Summary ---
Author Organization [facility] Address [address] [facility] 7t [place] [address] Care Team Providers Care Magneto Repairer Name Role Phone Unavailable Primary Care Provider Unavailabl e Encounter Details Date Type Department Care Team (Latest Contact Info) Description 11/22/2021 Abstract [facility] CONVERSIONS Dental, Provider, DDS Social History Tobacco [...]
--- OUTSIDE RECORDS SUMMARY | 2024-11-06 15:56 | XMS_ITS | Encounter Summary ---
Author Organization [facility] Address [address] [place] [address] Phone Care Team Providers Care Motorcycle Mechanic Apprentice Name Role Phone Yoli Townsend MD Primary Care Provider [phone] Encounter Details Date Type Department Care Team (Late Contact Info) Description 06/18/2022 Documentation Only [facility] [address] [place] [address] Chester Ventura MD [address] [place] [address] [place] [address] Social History Tobacco Use Types [...] Visit [facility] [address] [place] [address] Chester Ventura MD [address] [place] [address] [place] [address] documented as of this encounter Visit Diagnoses Not on filedocumented in this encounter Care Teams Motorcycle Mechanic Apprentice Relationship Specialty Start Date End Date Yoli Townsend MD [address] [place], [place] PCP - General 06/09/19 documented as of this encounter
--- OUTSIDE RECORDS SUMMARY | 2024-11-06 15:56 | XMS_ITS | Patient Health Record ---
Author Organization [facility] Address [address] [place] [address] Care Team Providers Care Sales Stock Associate Name Role Phone Yoli Townsend Primary Care Provider UnavailKostas Love Unavailable [phone] Allergies No Known Allergies Results Component Value Reference Range Notes Complete Blood Count Auto Di ff Reviewed date:06/11/2024 01:39:17 PM Interpretation: Performing Lab:[facility], [address] [place] [phone] Notes/Report: White Blood Count 6.8 4.8-10.8 X10*3/uL Red Blood Count 4.86 4.20-5.50 X10*6/uL Hemoglobin 14.5 12.0-16.0 g/dl Hematocrit 43.0 37.0-47.0 % Mean Corpuscular Volume 88.5 80.0-98.0 fL Mean Corpuscular Hemoglobin 29.8 27.0-33.0 pg Mean Corpuscular HGB Conc 33.7 31.0-35.0 g/dl Red Cell Distribution Width 13.2 11.0-16.0 % Platelet Count 193 160-400 X10*3/uL Mean Platelet Volume 9.1 9.4-12.3 fL Neutrophils Percent Auto 46.6 45-73 % Imm Gran Pct Auto 0.3 0.0-0.4 % Lymphocytes Percent Auto 46.2 20-40 % Monocytes Percent Auto 6.0 2-11 % Eosinophils Percent Auto 0.6 0-4 % Basophils Percent Auto 0.3 0-2 % NRBC Pct Auto 0.0 0.0-0.2 /100WBC Neutrophils Absolute Auto 3.2 2.0-8.3 x10*3/uL Imm Gran Abs Auto 0.02 0.00-0.03 X10*3/uL Lymphocytes Absolute Auto 3.1 1.2-4.9 X10*3/uL Monocytes Absolute Auto 0.4 0.1-1.2 X10*3/uL Eosinophils Absolute Auto 0.0 0.0-0.4 X10*3/uL Basophils Absolute Auto 0.0 0.0-0.2 X10*3/uL NRBC Abs Auto 0.000 0.0-0.012 X10*3/uL Prothrombin Time INR Reviewed date:06/11/2024 01:39:24 PM Interpretation: Performing Lab:[facility], [address] [place] [phone] Notes/Report: Prothrombin Time 11.5 10.9-12.4 SEC INTERNATIONAL NORM RATIO 1.0 0.9-1.1 INTERNATIONAL [...] mechanical prosthetic heart valves: 2.5 - 3.5 Lipoprotein Asso Phospholip A2 Reviewed date:06/17/2024 05:10:57 PM Interpretation: Performing Lab:[facility], [address] [place] [phone] Notes/Report: Lipoprotein Asso Phospholip A2 106 <124 Result Units: nmol/min/mL This test was developed and its analytical performance characteristics have been determined by [facility]. It has not been cleared or approved by the U.S. Food and Drug Administration. This assay has been validated pursuant to the CLIA regulations and is used for clinical purposes. Relative Risk: Optimal <=123 nmol/min/mL; High >123 nmol/min/mL. See Note 1 Note 1 This test was developed and its analytical performance characteristics have been determined by [facility]. It has not been cleared or approved by the FDA. This assay has been validated pursuant to the CLIA regulations and is used for clinical purposes. THIS TEST WAS PERFORMED AT: [facility] [address] [place] [address] ERIN TURNER,PHD,[facility] Apolipoprotein B Reviewed date:06/17/2024 05:10:38 PM Interpretation: Performing Lab:[facility], [address] [place] [phone] Notes/Report: Apolipoprotein B 121 <90 mg/dL Reference Range: <90 Risk Category: Optimal < 90 Moderate 90 - 119 High > or = 120 Cardiovascular event risk category cut points (optimal, moderate, high) are based on National Lipid Association recommendations-Lalitha handy TA et al. J Clin Lipid. 2015;9:129-169 and Etelvina TUCKER et al. Endocr Pract. 2017;23(Suppl 2):1-87. THIS TEST WAS PERFORMED AT: [facility]/[address] [address] GONZALO ALVARADO MD,PHD Vitamin B12 and Folate Reviewed date:06/11/2024 01:40:13 PM Interpretation: Performing Lab:[facility], [address] [place] [phone] Notes/Report: Vitamin B12 804 200-900 pg/mL NORMAL 200-900 PG/ML INDETERMINATE 160-199 PG/ML DEFICIENT < 160 PG/ML Folate 14.7 > or = 4.0 ng/mL Reference Values: > or = 4.0 ng/mL < 4.0 ng/mL suggests folate deficiency Methotrexate, aminopterin and folinic acid (leucovorin) are chemotherapeutic agents whose molecular structures are similar to folate; therefore, the Regional Operations Director folate assay cannot be used for patients using these drugs. Vitamin D 25-OH Total Reviewed date:06/11/2024 01:39:39 PM Interpretation: Performing Lab:[facility], [address] [place] [phone] Notes/Report: Vitamin D 25-OH Total 27.9 >30 ng/mL Health Based Reference Values* < 20 ng/mL Deficient 20-30 ng/mL Insufficient > 30 ng/mL Sufficient *Christian SHELL. N Engl J Med. 2007;357:266-280 Care must be taken in interpreting Vitamin D results from different laboratories and methodologies. Published data demonstrated that results from patients undergoing hemodialysis may show a negative bias when tested with various automated 25-OH vitamin D assays when compared to LC-MS/MS. When testing samples from patients whose predominant form of Vitamin D is Vitamin D2, such as patients receiving Vitamin D2 supplementation, results that are subtherapeutic should be confirmed with another method such as LC-MS/MS. Microalbumin, Random Reviewed date:06/11/2024 01:38:36 PM Interpretation: Performing Lab:[facility], [address] [place] [phone] Notes/Report: Creatinine Urine 88.40 Microalbumin Urine 152.0 Microalbum/Creatinine Ratio Ur 171.9 <30 ug/mg cr Albumin/Creatinine Ratio Reference Ranges: Normal: < 30 ug/mg creatinine Microalbuminuria: 30 - 300 ug/mg creatinine Clinical Albuminuria: > 300 ug/mg creatinine US abdomen comp w elastograp hy (Not yet reviewed by provider) Interpretation: Performing Lab: Notes/Report: [address] [address] Ultrasound Report Signed Patient: Heather Combs MR#: [id number] : 1960 Acct:[id number] Age/Sex: 64 / F ADM Date: 06/11/24 Loc: HO.US Attending Dr: Kostas Erazo MD Ordering Physician: Kostas Erazo MD Date of Service: 06/11/24 Procedure(s): US abdomen comp w elastography Accession Number(s): [id number] cc: Yoli Townsend MD; Kostas Erazo MD EXAMINATION: US COMPLETE ABDOMEN WITH LIVER ELASTOGRAPHY CLINICAL INFORMATION: Ultrasound abdomen 06/10/2023 COMPARISON: None available. TECHNIQUE: Real-time imaging of the abdominal viscera. Noninvasive ultrasound liver fibrosis assessment is performed using Momo ElastPQ point quantification shear wave elastography (pSWE) with a C5-2 MHz transducer. Multiple elastography samples are obtained. FINDINGS: PANCREAS: The visualized pancreatic head and body are normal in appearance. The remainder of the pancreas is obscured from visualization by the overlying bowel gas. ABDOMINAL AORTA: No aortic aneurysm is seen. INFERIOR VENA CAVA: Visualized portions are normal. LIVER: The liver demonstrates normal size and contour but demonstrates increased echogenicity consistent with hepatic steatosis. No focal lesion or intrahepatic biliary duct dilatation. The right lobe measures 15.8 cm in length. The left lobe measures 13.0 cm in length. Portal flow is towards the liver (hepatopetal). Shear wave liver elastography median stiffness is 1.79 m/s (reference: normal median stiffness is 1.3 m/s or less). IQR/median stiffness to assess sampling precision is 0.16 (reference: good quality data set is IQR/median stiffness of 0.15 or less). GALLBLADDER: Status post cholecystectomy COMMON BILE DUCT: Dilated measuring 1.2 cm in diameter which may be normal after cholecystectomy. RIGHT KIDNEY: There is a lower pole 0.7 cm echogenic focus with twinkle artifact consistent with a nonobstructing stone. No hydronephrosis. The kidney measures 12.8 cm in maximum dimension. Multiple benign parapelvic Bosniak class I renal cysts are noted, the largest measuring 3.2 cm, which require no additional imaging or follow-up. No solid renal masses are seen. LEFT KIDNEY: There is a large 2.7 cm shadowing calculus noted at the upper pole of the left kidney. No hydronephrosis. Multiple benign Bosniak class I renal cysts , most parapelvic but some cortical, are noted, the largest measuring 11.5 cm, which require no additional imaging or follow-up. No solid renal masses are seen. . The kidney measures 19.6 cm in maximum dimension. ADDITIONAL FINDINGS: A large cyst is present superior to the umbilicus and slightly to the left measuring 11.6 x 9.4 x 12.0 cm. On the prior CT scan, no mass or cyst was seen superior to the umbilicus. SPLEEN: Unremarkable. The spleen measures 9.5 cm in maximum dimension. FREE FLUID: None seen. US/US abdomen comp w elastography IMPRESSION: 1. Hepatic steatosis 2. Liver elastography: Although measurements are suggestive of compensated advanced chronic liver disease, there is statistical variability of the sampling which decreases accuracy. 3. Incidental note made of bilateral Bosniak class I renal cysts which need no follow-up. There is a large cyst superior to the umbilicus which was not seen previously. CT scan of the abdomen and pelvis with oral and IV contrast recommended for further evaluation REFERENCE: Society of Radiologists in Ultrasound Liver Stiffness Thresholds (2020): LIVER STIFFNESS THRESHOLDS: *Liver Stiffness equal or less than 1.3 m/s: High probability of being normal. *Liver Stiffness less than 1.7 m/s: In the absence of other known clinical signs, rules out compensated advanced chronic liver disease. *Liver Stiffness 1.7-2.1 m/s: Suggestive of compensated advanced chronic liver disease but need further test for confirmation. *Liver Stiffness over 2.1 m/s: Rules in compensated advanced chronic liver disease. *Liver Stiffness over 2.4 m/s: Suggestive of clinically significant portal hypertension. QUALITY OF DATA SET: *IQR/Median value equal or less than 0.15 implies a quality data set. *IQR/Median value over 0.15 implies a poor quality data set. SIGNIFICANT CHANGE FROM PRIOR EXAM: Significant change if liver stiffness measurement is 10% or greater from prior exam. OTHER CONSIDERATIONS: The stage of liver fibrosis may be overestimated in the setting of acute hepatitis, liver inflammation, elevated liver function tests, hepatic vascular congestion, obstructive cholestasis, non-fasting state, and infiltrative diseases such as amyloidosis and lymphoma. In some patients with NAFLD, the liver stiffness thresholds for compensated advanced chronic liver disease may be lower. In causes other than viral hepatitis and NAFLD, liver stiffness thresholds are not well established. Electronically signed by: Daljit Last MD 08/13/2024 11:52 PM [facility] Dictated By: Daljit Last MD Signed By: <Electronically signed by Daljit Last MD in OV> 08/13/24 2352 DD/ 0807 TD/TT: 06/11/24 0830 Manager Ccu: [place] [id number] Ultrasound Report Signed Patient: Heather Combs MR#: [id number] : 1960 Acct:[id number] Age/Sex: 64 / F ADM Date: 06/11/24 Loc: HO.US Attending Dr: Kostas Erazo MD Ordering Physician: Kostas Erazo MD Date of Service: 06/11/24 Procedure(s): US abdomen comp w elastography Accession Number(s): [id number] cc: Yoli Townsend MD; Kostas Erazo MD EXAMINATION: US COMPLETE ABDOMEN WITH LIVER ELASTOGRAPHY CLINICAL INFORMATION: Ultrasound abdomen 06/10/2023 COMPARISON: None available. TECHNIQUE: Real-time imaging of the abdominal viscera. Noninvasive ultrasound liver fibrosis assessment is performed using Momo ElastPQ point quantification shear wave elastography (pSWE) with a C5-2 MHz transducer. Multiple elastography samples are obtained. FINDINGS: PANCREAS: The visualized pancreatic head and body are normal in appearance. The remainder of the pancreas is obscured from visualization by the overlying bowel gas. ABDOMINAL AORTA: No aortic aneurysm is seen. INFERIOR VENA CAVA: Visualized portions are normal. LIVER: The liver demonstrates normal size and contour but demonstrates increased echogenici ty consistent with hepatic steatosis. No focal lesion or intrahepat ic biliary duct dilatation. The right lobe measu res 15.8 cm in length. The left lobe measures 13.0 cm in length. Portal flow is towar ds the liver (hepatopetal). Shear wave liver elastography median stiffness is 1.79 m/s (reference: normal median stiffn ess is 1.3 m/s or less). IQR/median stiffness to assess sampling precision is 0.16 (reference: good quality data se t is IQR/median stiffness of 0.15 or less). GALLBLADDER: Status post cholecystectomy COMMON BILE DUCT: Dilated measuring 1.2 cm in diameter which may be normal after cholecystectomy. RIGHT KIDNEY: There is a lower pole 0.7 cm echogenic focus with twinkle artifact consistent with a nonobstructing stone. No hydronephrosis. The kidney measures 12.8 cm in maximum dimension. Multiple benign parapelvic Bosniak class I renal cysts are noted, the largest measuring 3.2 cm, which requir e no additional imaging or follow-up. No solid renal masses are seen. LEFT KIDNEY: There i s a large 2.7 cm shadowing calculus noted at the upper pole of the le ft kidney. No hydronephrosis. Multiple benign Bosniak class I gianni l cysts , most parapelvic but some cortical, are noted, the largest measuring 11.5 cm, which require no additional imaging or follow-up . No solid renal masses are seen. . The kidney measures 19.6 cm in maximum dimension. ADDITIONAL FINDINGS: A large cyst is present superior to the umbilicus and slightly to the left measuring 11.6 x 9.4 x 12.0 cm. On the prior CT scan, no mass or cyst was seen superior to the umbilicus. SPLEEN: Unremarkable . The spleen measures 9.5 cm in maximum dimension. FREE FLUID: None seen. US/US abdomen comp w elastography IMPRESSION: 1. Hepatic steatosis 2. Liver elastograph y: Although measurements are suggestive of compensated advanced chronic liver disease, there is statistical variability of the sampling which decreases accuracy. 3. Incidental note m howard of bilateral Bosniak class I renal cysts which need no follow-up. There is a large cyst superior to the umbilicus which was not seen previously. CT scan of the abdomen and pelvis with oral and IV contrast recommended for further evaluation REFERENCE: Society of Radiologi sts in Ultrasound Liver Stiffness Thresholds (2019): LIVER STIFFNESS THRESHOLDS: *Liver Stiffness equ al or less than 1.3 m/s: High probability of being normal. *Liver Stiffness les s than 1.7 m/s: In the absence of other known clinical signs, rule s out compensated advanced chronic liver disease. *Liver Stiffness 1.7-2.1 m/s: Suggestive of compensated advanced chronic liver diseas e but need further test for confirmation. *Liver Stiffness ove r 2.1 m/s: Rules in compensated advanced chronic liver disease. *Liver Stiffness ove r 2.4 m/s: Suggestive of clinically significant portal hypertension. QUALITY OF DATA SET: *IQR/Median value eq ual or less than 0.15 implies a quality data set. *IQR/Median value ov er 0.15 implies a poor quality data set. SIGNIFICANT CHANGE F ROM PRIOR EXAM: Significant change i f liver stiffness measurement is 10% or greater from prior exam. OTHER CONSIDERATIONS: The stage of liver fibrosis may be overestimated in the setting of acute hepatitis, rashid er inflammation, elevated liver function tests, hepatic vascular congestion, obstructive cholestasis, non-fasting state, and infiltrat yocasta diseases such as amyloidosis and lymphoma. In some patients with NAFLD, the liver stiffness thresholds for compensated advanced chronic liver disease may be lower. In causes other than viral hepatitis and NAFLD, liver stiffness thresholds are not well established. Electronically mateusz d by: Daljit Last MD 08/13/2024 11:52 PM EST Dictated By: Daljit Last MD Signed By: <Electronically signed by Daljit Last MD in OV> 08/13/24 8652 DD/ 0807 TD/TT: 06/11/24 0830 Manager Ccu: [facility] Reason For Referral No Information Medications Medication SIG (Take, Route, Frequency, Duration) Notes Start Date End Date Status metFORMIN HCl 500mg Orally Twice a day Active Baclofen 10 MG Oral for 30 Act yocasta Fish Oil 1000 MG 1 capsule Orally Onc e a day Active Rosuvastatin Calcium 40 MG TOME MARK ANTHONY TABL ETA POR V A ORAL A DIARIO Oral for 90 Active Ozempic (1 MG/DOSE) 4 MG/3ML Subcutaneous for 28 Active Vitamin C 500 MG as directed Orally Active traMADol HCl 50 MG TAKE 1 TABLET BY BELINDA TH 2 TIMES A DAY NEEDED FOR PAIN FOR 30 DAYS Oral for 30 Active Omeprazole 20 MG 1 Orally QAM for 30 day(s) 2021 Active Ursodiol 300 MG TOME 2 CAPSULAS POR VIA ORAL DOS VECES AL IVELISSE Active Repatha Pushtronex System 420 MG/3.5ML INJECT 420MG POR V A SUBCUT MATT ONE A MONTH Subcutaneous for 30 Active Ursodiol 300 MG tome 2 capsulas por [address] oral dos veces al ivelisse Orally Twice a day for 30 days Active PriLOSEC 20 MG 1 capsule Orally Onc e a day for 30 days Active Allopurinol 100 MG 1 tablet Orally Once a day Active Jardiance 10 MG Oral for 90 Ac tive Vitamin D2 10 MCG (400 UNIT) 2 tablets Orally Once a day for 30 day(s) Active Vitamin D-[address] 25 MCG (1000 UT) Oral for 90 Active Losartan Potassium A ctive Vitamin B-6 100 MG Oral for 90 Active Pioglitazone HCl Act yocasta Ezetimibe 10 MG Oral for 90 Ac tive Immunizations Vaccine Route Administration Date Status Comme nts Influenza Unknown 01/06/2019 Refused Influenza Unknown 01/23/2022 Refused Problems Problem Type SNOMED Code ICD Code Onset Dates Problem Status W/U Status Risk Notes Problem Screening for malignant neoplasm of colon (104530534) Encounter for screening for malignant neoplasm of colon (Z12.11) Active confirmed Problem Hepatic fibrosis (10326668) Hepatic fibrosis (K74.0) Active confirmed Problem 868642047 Elevated liver enzymes (R74.8) Active confirmed Problem 504063133 Fatty liver (K76.0) Active confirmed Problem 21392316 Liver fibrosis (K74.0) Active confirmed Problem Gastroesophageal reflux disease (993699171) GERD without esophagitis (K21.9) Active confirmed Problem Diverticulosis of colon (814942313) Diverticulosis of colon (K57.30) Active confirmed Problem Hepatic fibrosis (disorder) (99122882) Liver fibrosis (K74.00) Active confirmed Vital Signs Blood pressure diastolic 00 mm Hg 05/28/2024 Height 61 in 05/28/2024 Blood pressure systolic 00 mm Hg 05/28/2024 Weight 197 lbs 05/28/2024 BMI 37.22 kg/m2 05/28/2024 Encounters Encounter Location Date Provider Diagnosis [facility] [address] [place] [address] 05/28/2024 Kostas Erazo Fatty liver K76.0 ; Elevated liver enzymes R74.8 ; Liver fibrosis K74.00 and GERD without esophagitis K21.9 Assessments Encounter Date Diagnosis (ICD Code) Assessment Notes Treatment Notes Treatment Clinical Notes Section Notes 05/28/2024 Elevated liver enzymes (ICD-10 - R74.8) [...] keep you advised of her progress. 05/28/2024 Fatty liver (ICD-10 - K76.0) Overall, [...] advised of her progress. Plan Of Treatment Pending Test Test Name Order Date LIVER PROFILE 05/29/2023 LIVER PROFILE 11/29/2020 LIVER PROFILE 12/24/2017 LIVER PROFILE 08/06/2013 LIVER PROFILE 05/28/2024 LIVER PROFILE 01/23/2022 CBC w DIFF 05/28/2024 CBC w DIFF 01/23/2022 CBC w DIFF 05/29/2023 PROTHROMBIN TIME (PT, INR) 01/23/2022 PROTHROMBIN TIME (PT, INR) 12/24/2017 ALPHA-FETOPROTEIN,TUMOR MARKER 0 ALPHA-FETOPROTEIN,TUMOR MARKER 7 ALPHA-FETOPROTEIN,TUMOR MARKER 4 ALPHA-FETOPROTEIN,TUMOR MARKER 1 ALPHA-FETOPROTEIN,TUMOR MARKER 2 ALPHA-FETOPROTEIN,TUMOR MARKER 3 ALPHA-FETOPROTEIN,TUMOR MARKER 4 ALPHA-FETOPROTEIN,TUMOR MARKER 8 ALPHA-FETOPROTEIN,TUMOR MARKER 5 US ABD 11/29/2020 US ABD 01/23/2022 US LIVER BIOPSY CORE GUIDE 04/22/2012 Prothrombin Time INR 05/28/2024 Liver Fibrosis Pnl 05/28/2024 Liver Fibrosis Pnl 01/23/2022 US abdomen comp w elastography 4 US abdomen comp w elastography 4 Future Test Test Name Order Date UPPER GI ENDOSCOPY 11/15/2011 COLONOSCOPY 11/15/2011 COLONOSCOPY 01/23/2022 Next Appt Details Provider Name:Kostas Erazo , 05/27/2025 11:00:00 AM, [address], [address], [place], [address], Insurance Providers Payer Name Payer Address Payer Phone Subscriber Number Group Number Insured Name Patient Relationship to Insured Coverage Start Date Coverage End Date [facility] [employer] [facility] [address] [address] [place], [place] [id number] HEATHER COMBS Self - patient is the insured MEDICAID OF [facility] [address] [place] [address] [id number] HEATHER COMBS Self - patient is the insured Medical (General) History Medical History History ICD Code Diabetes HTN Denies OR,CVA,Lung disease,renal disease Kidney stones, s/p lithotripsy hyperlipidemia GERD steatohepatitis, with a live r biopsy in May of 2012 reviewing mild hepatitis and some fibrosis she had a colonoscopy in December of 2011 whi ch was negative for polyps she had an upper endoscopy i n December of 2011 which revealed a small hiatal hernia, but no evidence of any significant esophagitis Negative screening colonosco py in 03/2022. However, the prep was somewhat limited and she was put in a colonoscopy recall for 2026 rather than 2031. Surgical History Surgery Date(Month/Year) APOORVA ZHU
--- OUTSIDE RECORDS SUMMARY | 2024-11-06 15:56 | XMS_ITS | Encounter Summary ---
Author Organization [facility] Address [address] [place] [address] Phone Care Team Providers Care American Studies Professor Name Role Phone Yoli Townsend MD Primary Care Provider [phone] Encounter Details Date Type Department Care Team (Late st Contact Info) Description 09/27/2023 Documentation Only [facility] [address] [place] [address] Liliya Pérez [address] [place] [address] Social History Tobacco Use Types [...] [facility] [address] [place] [address] Chester Ventura MD [address] [place] [address] [place] [address] documented as of this encounter Visit Diagnoses Not on filedocumented in this encounter Care Teams American Studies Professor Relationship Specialty Start Date End Date Yoli Townsend MD [address] [place], [place] PCP - General 06/09/19 documented as of this encounter
--- OUTSIDE RECORDS SUMMARY | 2024-11-06 15:56 | XMS_ITS | Encounter Summary ---
Author Organization [facility] Address [address] [place] [address] Phone Care Team Providers Care Adobe Layer Name Role Phone Yoli Townsend MD Primary Care Provider [phone] Encounter Details Date Type Department Care Team (Late Contact Info) Description 02/21/2022 Documentation Only [facility] [address] [place] [address] Chester Ventura MD [address] [place] [address] [place] [address] Social History Tobacco Use Types [...] Visit [facility] [address] [place] [address] Chester Ventura MD [address] [place] [address] [place] [address] documented as of this encounter Visit Diagnoses Not on filedocumented in this encounter Care Teams Adobe Layer Relationship Specialty Start Date End Date Yoli Townsend MD [address] [place], [place] PCP - General 06/09/19 documented as of this encounter
--- OUTSIDE RECORDS SUMMARY | 2024-11-06 15:56 | XMS_ITS | Encounter Summary ---
Author Organization [facility] Address [address] [place] [address] Phone Care Team Providers Care Powerhouse Electrician Name Role Phone Yoli Townsend MD Primary Care Provider [phone] Encounter Details Date Type Department Care Team (Late Contact Info) Description 12/04/2022 Documentation Only [facility] [address] [place] [address] Chester Ventura MD [address] [place] [address] [place] [address] Social History Tobacco Use Types [...] Visit [facility] [address] [place] [address] Chester Ventura MD [address] [place] [address] [place] [address] documented as of this encounter Visit Diagnoses Not on filedocumented in this encounter Care Teams Powerhouse Electrician Relationship Specialty Start Date End Date Yoli Townsend MD [address] [place], [place] PCP - General 06/09/19 documented as of this encounter
--- OUTSIDE RECORDS SUMMARY | 2024-11-06 15:56 | XMS_ITS | Encounter Summary ---
Author Organization [facility] Address [address] [place] [address] Phone Care Team Providers Care Blueberry Grower Name Role Phone Yoli Townsend MD Primary Care Provider [phone] Encounter Details Date Type Department Care Team (Late st Contact Info) Description 09/27/2023 Documentation Only [facility] [address] [place] [address] Liliya Pérez [address] [place] [address] Social History Tobacco Use Types [...] Visit [facility] [address] [place] [address] Chester Ventura MD [address] [place] [address] [place] [address] documented as of this encounter Visit Diagnoses Not on filedocumented in this encounter Care Teams Blueberry Grower Relationship Specialty Start Date End Date Yoli Townsend MD [address] [place], [place] PCP - General 06/09/19 documented as of this encounter
--- OUTSIDE RECORDS SUMMARY | 2024-11-06 15:56 | XMS_ITS | Encounter Summary ---
Author Organization [facility], Address [address] [place] [address] Phone Care Team Providers Care Clothing Examiner Name Role Phone Yoli Townsend MD Primary Care Provider [phone] Reason for Visit * Reason Comments Med Refill Encounter Details Date Type Department Care Team (Late Contact Info) Description 02/18/2020 Refill [facility] [address] [place] [address] Chester Ventura MD [address] [facility] [address] [place] [address] Social History Tobacco Use Types [...] Visit [facility] [place], [address] [place] [address] Chester Ventura MD [address] [place] [address] documented as of this encounter Visit Diagnoses Not on filedocumented in this encounter Care Teams Clothing Examiner Relationship Specialty Start Date End Date Yoli Townsend MD [address] [place] PCP - General 06/09/19 documented as of this encounter
--- OUTSIDE RECORDS SUMMARY | 2024-11-06 15:56 | XMS_ITS | Encounter Summary ---
Author Organization [facility] Address [address] [place] [address] Phone Care Team Providers Care Vinyl Flooring Installer Name Role Phone Yoli Townsend MD Primary Care Provider [phone] Encounter Details Date Type Department Care Team (Late Contact Info) Description 11/30/2022 Documentation Only [facility] [address] [place] [id number] Chester Ventura MD [address] [place] [address] [place] [address] Social History Tobacco Use Types [...] Visit [facility] [address] [facility] [place] [address] Chester Ventura MD [address] [facility] [place] [address] documented as of this encounter Visit Diagnoses Not on filedocumented in this encounter Care Teams Vinyl Flooring Installer Relationship Specialty Start Date End Date Yoli Townsend MD [address] [place], [place] PCP - General 06/09/19 documented as of this encounter
--- OUTSIDE RECORDS SUMMARY | 2024-11-06 15:56 | XMS_ITS | Clinical Summary ---
Author Organization [facility] Address [address] [place] [address] 7[address] [place] [address] Care Team Providers Care Catalyst Plant Supervisor Name Role Phone Unavailable Primary Care Provider [...]
--- OUTSIDE RECORDS SUMMARY | 2024-11-06 15:56 | XMS_ITS | Encounter Summary ---
Author Organization [facility] Address [address] [place] [address] Phone Care Team Providers Care Electrophysiology Tech Name Role Phone Yoli Townsend MD Primary Care Provider [phone] Encounter Details Date Type Department Care Team (Late Contact Info) Description 06/12/2023 Documentation Only [facility] Dr [address] [place] [phone] Chester Ventura MD [address] [place] [address] [place] [address] Social History Tobacco Use Types [...] Visit [facility] [address] [facility] [place] [address] Chester Ventura MD [address] [facility] [place] [address] documented as of this encounter Visit Diagnoses Not on filedocumented in this encounter Care Teams Electrophysiology Tech Relationship Specialty Start Date End Date Yoli Townsend MD [address] [place], [place] PCP - General 06/09/19 documented as of this encounter
--- OUTSIDE RECORDS SUMMARY | 2024-11-06 15:56 | XMS_ITS | Encounter Summary ---
Author Organization [facility] Address [address] [place] [address] Phone Care Team Providers Care Brim Setter Name Role Phone Yoli Townsend MD Primary Care Provider [phone] Encounter Details Date Type Department Care Team (Late Contact Info) Description 06/01/2022 Documentation Only [facility] [address] [place] [address] Chester Ventura MD [address] [place] [address] [place] [address] Social History Tobacco Use Types [...] [facility] [address] [place] [place] [address] Chester Ventura MD [address] [place] [address] [place] [address] documented as of this encounter Visit Diagnoses Not on filedocumented in this encounter Care Teams Brim Setter Relationship Specialty Start Date End Date Yoli Townsend MD [address] [place], [place] PCP - General 06/09/19 documented as of this encounter
--- OUTSIDE RECORDS SUMMARY | 2024-11-06 15:56 | XMS_ITS | Encounter Summary ---
Author Organization [facility] Address [address] [place] [address] Phone Care Team Providers Care Gas Dispenser Name Role Phone Yoli Townsend MD Primary Care Provider [phone] Encounter Details Date Type Department Care Team (Late Contact Info) Description 06/12/2023 Documentation Only [facility] [address] [place] [address] Chester Ventrua MD [address] [place] [address] [place] [address] Social History Tobacco Use Types [...] Visit [facility] [address] [place] [address] Chester Ventura MD [address] [place] [address] [place] [address] documented as of this encounter Visit Diagnoses Not on filedocumented in this encounter Care Teams Gas Dispenser Relationship Specialty Start Date End Date Yoli Townsend MD [address] [place], [place] PCP - General 06/09/19 documented as of this encounter
--- OUTSIDE RECORDS SUMMARY | 2024-11-06 15:56 | XMS_ITS | Encounter Summary ---
Author Organization [facility] Address [address] [facility] 7t [place] [address] Care Team Providers Care International Trade Analyst Name Role Phone Unavailable Primary Care [...]
--- OUTSIDE RECORDS SUMMARY | 2024-11-06 15:56 | XMS_ITS | Encounter Summary ---
Author Organization [facility] Address [address] [place] [address] Phone Care Team Providers Care Glassblower Name Role Phone Yoli Townsend MD Primary Care Provider [phone] Encounter Details Date Type Department Care Team (Late Contact Info) Description 12/04/2022 Documentation Only [facility] [address] [place] [address] Chester Ventura MD [address] [place] [address] [place] [address] Social History Tobacco Use Types [...] Visit [facility] [address] [place] [address] Chester Ventura MD [address] [place] [address] [place] [address] documented as of this encounter Visit Diagnoses Not on filedocumented in this encounter Care Teams Glassblower Relationship Specialty Start Date End Date Yoli Townsend MD [address] [place], [place] PCP - General 06/09/19 documented as of this encounter
[2024-11-06 16:06] LABS: Alanine Aminotransferase 22 U/L (0-31); Albumin Level 4.4 g/dL (3.5-5.0); Alkaline Phosphatase 107 U/L (39-117); Anion Gap 11 (12-20); Aspartate Amino Transferase 24 U/L (5-31); Bilirubin Direct 0.3 mg/dL (0.0-0.5); Bilirubin Total 0.6 mg/dL (0.0-1.0); Blood Urea Nitrogen 14 mg/dL (9-16); Calcium 9.6 mg/dL (8.4-10.2); Carbon Dioxide 26 mmol/L (22-29); Chloride 104 mmol/L (96-108); Estimated Glomerular Filt Rate > 60; Glucose Random 118 mg/dL (60-115); Magnesium 1.8 mg/dL (1.6-2.6); Potassium 3.8 mmol/L (3.3-5.1); Sodium 137 mmol/L (135-145); Total Protein 7.9 g/dL (6.5-8.0)
== END 2024-11-06 13:12 | disposition home or self-care (01) ==
LOC: HO.LAB 13:11
PROVIDERS: PCP Internal Medicine; Visit Provider Physician Assistant Medical
DX: R10.9 Unspecified abdominal pain (principal); N39.0 Urinary tract infection, site not specified; R31.9 Hematuria, unspecified; R00.0 Tachycardia, unspecified; Z87.442 Personal history of urinary calculi; Z00.00 Encounter for general adult medical examination without abnormal findings
CPT/HCPCS: 36415; 80053; 81003; 82248; 83735; 85025; 87086; 93005; 99212

== ENCOUNTER 2024-11-06 13:11 | Outpatient (AMB) | payer OTHER, SELFPAY ==
[2024-11-06 13:17] VITALS: BP 124/84; PULSE 118; RESP 24; TEMP 36.2; O2SAT 99; BMI 35.9
--- NOTE | 2024-11-06 13:17 | A.OFFPC_ITS ---
Vital Signs 11/06/24 13:17 Height 5 ft 1 in Weight 190 lb BMI 35.9 BP 124/84 Blood Pressure Location Lt brachial Position Sitting Respiration 24 H Pulse 118 H Pulse Source Pulse Oximeter Temp 97.1 F Temp Source Temporal Artery Scan Pulse Oximetry (%) 99 Oxygen Delivery Method Room Air Intake Visit Reasons: Urinary tract infection Accompanied by: Self / Same As Patient Allergies atorvastatin Allergy (Intermediate, Verified 11/06/24 13:49) elevated liver enzymes, elevated enzymes duloxetine [Cymbalta] Allergy (Intermediate, Verified 11/06/24 13:49) headache dapagliflozin [From [facility]] Adverse Reaction (Intermediate, Verified 11/06/24 13:49) Dizziness Medication List - Last Reconciled 11/06/24 by Sheila Todd PA-C alclometasone 0.05% appl topical BID PRN blood sugar diagnostic (FreeStyle Lite Strips) 3 times a day blood-glucose meter (FreeStyle Lite Meter kit) As directed 3x/day calcium carbonate 500 mg PO BID 30 days cholecalciferol (vitamin D3) 25 mcg PO DAILY diclofenac sodium 1% 2 grams topical BID PRN empagliflozin (Jardiance) 25 mg PO DAILY 90 days evolocumab (Repatha SureClick) 140 mg subcut Q2W 90 days evolocumab (Repatha Pushtronex) 420 mg (3.5 mL) subcut Q4W 90 days ezetimibe 10 mg PO DAILY 90 days fluticasone propionate 50 mcg/actuation (Allergy Relief (fluticasone)) 1 spray intranasal DAILY PRN 30 days gabapentin 100 mg PO BEDTIME 30 days losartan 25 mg PO DAILY 90 days mecobalamin (vitamin B12) 1,000 mcg PO DAILY 90 days metformin 1,000 mg (2 x 500 mg) PO BID 90 days omeprazole 20 mg PO QAM PRN 90 days pyridoxine (vitamin B6) 100 mg PO DAILY 90 days repaglinide 1- 2 tabs prior to dinner PO daily; administer within 15 minutes of a meal or snack 30 days rosuvastatin 40 mg PO DAILY semaglutide (Ozempic) 2 mg (0.75 mL) subcut QWEEK 4 weeks tizanidine 2 mg PO Q8H PRN 30 days tramadol 50 mg PO BID PRN 30 days ursodiol 300 mg PO BID Tobacco use date assessed: 11/06/24 Fall risk assessment: No Falls in past year Last assessed Fall Risk: 11/06/24 Dental Screening Dental Screen Date: 11/06/24 Did you have a dental visit in the last 12 months?: Yes Did you have a dental problem in the last 6 months where you did not have access to dental care?: No Was dental information given to patient?: Patient has dentist [facility] Medical History History of kidney stones Abdominal pain Tachycardia Renal cyst Chronic GERD Polyarthralgia Left shoulder pain Right foot pain Renal calculus, bilateral Mild major depression, single episode Morbid obesity with BMI of 40.0-44.9, adult Diabetes type 2, uncontrolled Iron deficiency anemia Osteopenia Left foot pain Postmenopausal Vitamin D deficiency Elevated LFTs Thyroid nodule Type 2 diabetes mellitus with other diabetic kidney complication Proteinuria Hyperlipidemia LDL goal <100 Obesity due to excess calories Essential hypertension Pure hypercholesterolemia Venous thrombosis of upper extremity Diabetes mellitus, type II Spondylosis, cervical Fatty liver Metatarsalgia Arthropathy of knee Surgical History H/O colonoscopy History of extraction of renal calculus History of removal of cyst History of shoulder surgery History of cholecystectomy History of total abdominal hysterectomy and bilateral salpingo-oophorectomy Status post rotator cuff repair Family History Father Stomach cancer Liver cancer Mother Myocardial infarct Diabetes CVD (cardiovascular disease) Sister Cervical cancer Brother Murder Social History Household Members: Children Housing: House Alcohol intake: never Patient Tobacco Use Status: Never used Tobacco e-Cigarette/Vaping Use: Never Used Second Hand Smoke Exposure: No service: No Current occupational status: disabled Current occupation: right handed Cognitive needs: Yes (Pt use a cane) Hearing needs: No Vision needs: No Questionnaire Thrive Questionnaire Date Thrive assessed: 11/06/24 I am a: Patient What is your living situation today?: I have a place to live, but I am worried about losing it in the future Within the past 12 months, did the food you bought not last and you didn't have the money to get more?: Often true Within the past 12 months, did you worry whether your food would run out before you got money to buy more?: Often true Do you have trouble paying for medicines?: No Do you have trouble getting transportation to medical appointments?: Yes Do you have trouble paying your heating and electricity bill?: I choose not to answer this question Do you have trouble taking care of your child, family member or friend?: No Do you have trouble with day-to-day activities such as bathing, preparing meals, shopping, managing finances, etc.?: Yes Are you currently unemployed and looking for a job?: No Are you interested in more education?: I choose not to answer this question Please select the resources that you would like help with: Transportation Currently or been in a relationship where the following occur: I choose not to answer THRIVE Score: 4 AUDIT C Alcohol Use Questionnaire (AUDIT-C) 1. How often do you have a drink containing alcohol?: Never 3. How often do you have six or more drinks on one occasion?: Never Total Score: 0 Score Reviewed/Action Taken: No HENRIETTA-7 AMB Questionnaire HENRIETTA-7 Date HENRIETTA - 7 assessed: 10/22/23 Source: Developed by Drs. Kostas Simeon, Mary Smith, Lb Barrett and colleagues, with an educational rachael from [employer]. Physical exam (Primary Care) Vital Signs: Last Vital Signs Temp 97.1 F 11/06/24 13:17 Pulse 118 H 11/06/24 13:17 Resp 24 H 11/06/24 13:17 BP 124/84 11/06/24 13:17 Pulse Ox 99 11/06/24 13:17 Oxygen Delivery Method Room Air 11/06/24 13:17 Care Plan Goal for BP management: <130/90 at Goal BMI result Body Mass Index 35.9 BMI Assessment/Plan discussion: High BMI High, discussed plan: lifestyle, weight reduction, dietary, physical activity and alcohol moderation Tobacco/Smoking Status: Tobacco use Status Tobacco use date assessed 11/06/24 11/06/24 13:36 Patient Tobacco Use Status Never used Tobacco 11/06/24 13:24 e-Cigarette/Vaping Use Never Used 11/06/24 13:24 Thrive Assessment: Date of Thrive Assessment Date Thrive assessed 11/06/24 11/06/24 13:24 Currently or been in a relationship where the following occur: I choose not to answer Office Procedures EKG Details: Sinus tachycardia with a ventricular rate of 102 with repolarization disturbances and nonspecific changes no acute ischemic changes are noted. Dr. Jerome reviewed this EKG and agreed no acute ischemic changes noted. [id number], Complete Results AMB Urinalysis, Automated UA Leukoctes 0 Keo/uL Last Edit by Awa Gaviria, ROSSI on 11/06/24 13:44 UA Nitrite Negative Last Edit by Awa Gaviria, INSTRUMENT MAKER APPRENTICE on 11/06/24 13:44 UA Urobilinogen 0.2 mg/dL Last Edit by Awa Gaviria, INSTRUMENT MAKER APPRENTICE on 11/06/24 13:44 UA Protein 15 mg/dL Last Edit by Awa Gaviria, INSTRUMENT MAKER APPRENTICE on 11/06/24 13:44 UA pH 5.5 Last Edit by Awa Gaviria, INSTRUMENT MAKER APPRENTICE on 11/06/24 13:44 UA Blood 200 Dominic/uL Last Edit by Awa Gaviria, INSTRUMENT MAKER APPRENTICE on 11/06/24 13:44 UA Specific [place] 1.015 Last Edit by Awa Gaviria, INSTRUMENT MAKER APPRENTICE on 11/06/24 13:44 UA Ketone Positive Last Edit by Awa Gaviria, INSTRUMENT MAKER APPRENTICE on 11/06/24 13:44 UA Bilirubin 0 mg/dL Last Edit by Awa Gaviria, INSTRUMENT MAKER APPRENTICE on 11/06/24 13:44 UA Glucose 1000 mg/dL Last Edit by Awa Gaviria, INSTRUMENT MAKER APPRENTICE on 11/06/24 13:44 Results Reviewed Results Reviewed: Laboratory Last Values Urine pH (Auto) 5.5 11/06/24 13:41 Specific [place] (Auto) 1.015 11/06/24 13:41 Urine Protein (Auto) 15 mg/dL 11/06/24 13:41 Glucose (UA)(Auto) 1000 mg/dL 11/06/24 13:41 Urine Ketones (Auto) Positive 11/06/24 13:41 Urine Blood (Auto) 200 Dominic/uL 11/06/24 13:41 Urine Nitrite (Auto) Negative 11/06/24 13:41 Urine Bilirubin (Auto) 0 mg/dL 11/06/24 13:41 Urine Urobilinogen (Auto) 0.2 mg/dL 11/06/24 13:41 Leukocyte Esterase (Auto) 0 Keo/uL 11/06/24 13:41 Coding Level of Care Code Est Pt Level 4 (35952) Complex EM visit Add On G2211 Diagnoses Abdominal pain R10.9 History of kidney stones Z87.442 Urinary tract infection with hematuria, site unspecified N39.0; R31.9 Urinary tract infection type: site unspecified Hematuria presence: with hematuria Tachycardia R00.0 CPT Codes EKG - CPT: [id number], Complete ([id number]) Assessment & Plan Assessment & Plan (1) Abdominal pain: Code(s): R10.9 - Unspecified abdominal pain Category: Medical Plan: Evaluation for nephrolithiasis will include a computed tomography scan to verify stones' presence, with plans for pain management using tramadol and stone expulsion facilitation via Flomax. Blood and urine labs are to be performed to identify other underlying issues. (2) History of kidney stones: Code(s): Z87.442 - Personal history of urinary calculi Category: Medical Plan: Evaluation for nephrolithiasis will include a computed tomography scan to verify stones' presence, with plans for pain management using tramadol and stone expulsion facilitation via Flomax. Blood and urine labs are to be performed to identify other underlying issues. (3) Urinary tract infection: Code(s): N39.0 - Urinary tract infection, site not specified Category: Medical Qualifiers: Urinary tract infection type: site unspecified Hematuria presence: with hematuria Qualified Code(s): N39.0 - Urinary tract infection, site not specified; R31.9 - Hematuria, unspecified Plan: Prophylactic antibiotic treatment with Cipro has been initiated due to suspicion of a urinary tract infection, despite the absence of typical symptoms, supported by patient's mention of past usage of ciprofloxacin for similar issues. (4) Tachycardia: Code(s): R00.0 - Tachycardia, unspecified Category: Medical Plan: EKG was sinus tachycardia with ventricular rate of 102 no acute ischemic change are noted. No evidence of atrial fibrillation. Dr. Jerome reviewed this EKG and agreed normal EKG no signs of ischemia or atrial fibrillation. Plan Plan Patient was informed and verbally consented to the use of an ambient scribe for clinic note documentation during this visit. 1. Other symptoms and signs involving the genitourinary system Prophylactic antibiotic treatment with Cipro has been initiated due to suspicion of a urinary tract infection, despite the absence of typical symptoms, supported by patient's mention of past usage of ciprofloxacin for similar issues. 2. Nephrolithiasis Evaluation for nephrolithiasis will include a computed tomography scan to verify stones' presence, with plans for pain management using tramadol and stone expulsion facilitation via Flomax. Blood and urine labs are to be performed to identify other underlying issues. 3. Possible Tachycardia An EKG has been ordered to assess her heart rhythm following reports of a rapid pulse rate, to dismiss possibilities of atrial fibrillation or other cardiac arrhythmias. Discussion Notes In our discussion, I explained the rationale behind testing for nephrolithiasis with computed tomography due to the patient's previous history and recurrent symptoms. We addressed the risks and benefits of taking Cipro as a preventive measure against a suspected urinary tract infection, noting her lack of classical symptoms but considering past episodes. I also emphasized the importance of performing an EKG to rule out serious conditions such as atrial fibrillation given her fast pulse. We agreed that home monitoring of symptoms and medication adherence was crucial, and she was instructed to follow up in a week to track progress and evaluate outcomes. We discussed the prescription of Flomax to aid partial stone expulsion and follow strict adherence to analgesic use for pain management. Orders: Orders Liver Panel Today Z00.00 - Encounter for general adult medical examination without abnormal findings AMB EKG-In Office Today R00.0 - Tachycardia, unspecified CT abdomen pelvis wo IV con Today R10.9 - Unspecified abdominal pain, Z87.442 - Personal history of urinary calculi AMB Urinalysis Automated Today R10.9 - Unspecified abdominal pain Complete Blood Count Auto Diff Today Z00.00 - Encounter for general adult medical examination without abnormal findings Comprehensive Met. Panel Today Z00.00 - Encounter for general adult medical examination without abnormal findings Magnesium Today Z00.00 - Encounter for general adult medical examination without abnormal findings Medications: New tamsulosin (Flomax) 0.4 mg PO DAILY 90 caps 1RF Changed From ciprofloxacin HCl 250 mg PO BID To ciprofloxacin HCl 250 mg PO BID 10 days 20 tabs 0RF From tramadol 50 mg PO BID PRN 60 tabs 0RF pain 30 days To tramadol 50 mg PO BID PRN 15 tabs 0RF pain Refilled fluticasone propionate 50 mcg/actuation (Allergy Relief (fluticasone)) administer into each nostril 1 spray intranasal DAILY 30 days PRN 16 grams 1RF allergic symptoms diclofenac sodium 1% apply twice daily as needed to affected area 2 grams topical BID PRN 100 grams 3RF pain Patient Instructions: Patient Instructions - Complete the full course of Cipro as prescribed, regardless of symptom presence. - Take tramadol as needed for pain management. - Flomax should be taken daily to assist in the passage of kidney stones. - Monitor pulse regularly and report any significant irregularities in heart rate. - Attend scheduled follow-up appointments and complete all recommended lab tests and imaging studies. - Seek immediate medical attention if experiencing any new or worsening symptoms such as severe pain, fever, or difficulty urinating. Scribe Plan - Not visible on output: History of Present Illness The patient is a 64-year-old female presenting with abdominal pain and urinary symptoms. She reports that the intense abdominal pain began approximately three days ago and has been persistent. Her past medical history includes kidney stones, with one of the stones removed by a healthcare professional in the past. She does not report typical symptoms of a urinary tract infection like nausea, vomiting, or diarrhea, nor does she notice any blood in urine. She denies any urinary frequency or urgency, hematuria that she is noted herself, black or bloody stools, constipation, recent falls or trauma. However, she mentions a history of sensation correlated to an infection and has been prescribed ciprofloxacin at those times. There was an indication that her prior experiences with kidney stones resulted in noticeable pain similar to what she currently endures. She reports in the past for her kidney stones she was prescribed Flomax and tramadol or oxycodone. She reports she does not have any Flomax, tramadol or oxycodone at home. She reports her urologist is Dr. Rasheed. Her pulse was noted to be fast. Although she denies feeling any palpitations, chest pain, shortness of breath, dizziness, lightheadedness or any weakness. Reports that she believes it might be from her walking a proximally 1-2 miles to get here due to the bus that she took did not come here to the hospital this is why she had to walk. Review of Systems - Genitourinary: Reports abdominal pain and history consistent with nephrolithiasis. Denies nausea, vomiting, diarrhea, and hematuria. Physical Exam Appearance: Alert. Oriented X3. No acute distress. Head: Normal external exam. Normocephalic. Atraumatic. Eyes: Pupils are equal, round, and reactive to light. Extraocular movements intact. Conjunctiva and sclera normal. Eyelids normal. Ears: External auditory canal normal. Tympanic membranes normal. Throat: Pharynx normal. Uvula midline. Moist mucous membranes. Neck: Normal inspection. Neck supple. Full range of motion. No adenopathy. Thyroid Normal. No meningeal signs. No neck mass noted. Cardiovascular: Heart rate is very fast. Normal heart rhythm. Heart sound normal. No murmurs noted. Pulses normal throughout. Respiratory: No respiratory distress. Painless inspiration. Breath sounds normal. No wheezes/rales/rhonchi noted. Chest nontender. No accessory muscle usage noted or decreased air movement noted. Abdomen: Soft and mild tenderness to palpation to the left lower quadrant/suprapubic area on the left side. Bowel sounds normal in all 4 quadrants. No distention noted. No organomegaly noted. No visible injury noted. Back: No costovertebral angle tenderness. Full range of motion noted. Skin: Skin warm and dry. Normal skin color. Normal skin turgor. No rashes/lesions/lacerations noted. Extremities: Extremities exhibit normal range of motion. Extremities nontender. Neuro: Oriented X 3. No motor deficit. No sensory deficit. Reflexes normal.
--- OUTSIDE RECORDS SUMMARY | 2024-11-06 15:05 | XMS_ITS | Encounter Summary ---
Author Organization [facility] Address [address] [place] [address] Phone Care Team Providers Care Contact Person Name Role Phone Yoli Townsend MD Primary Care Provider [phone] Encounter Details Date Type Department Care Team (Late Contact Info) Description 06/06/2022 Documentation Only [facility] [address] [place] [address] Chester Ventura MD [address] [place] [address] [place] [address] Social History Tobacco Use Types Packs/Day Years Used Date Smoking Tobacco: Never Alcohol Use Standard Drinks/Week Comments No 0 (1 standard drink = 0.6 oz pur e alcohol) Comments Unknown Sex and Gender Information Value Date Recorded Sex Assigned at Not on file Legal Sex Female 4:33 PM EST Gender Identity Not on file Sexual Orientation Not on file documented as of this encounter Plan of Treatment Upcoming Encounters Date Type Department Care Team (Late st Contact Info) Description 12/22/2024 1:30 PM EDT Office Visit [facility] [address] [place] [address] Chester Ventura MD [address] [place] [address] [place] [address] documented as of this encounter Visit Diagnoses Not on filedocumented in this encounter Care Teams Contact Person Relationship Specialty Start Date End Date Yoli Townsend MD [address] [place], [place] PCP - General 06/09/19 documented as of this encounter
--- OUTSIDE RECORDS SUMMARY | 2024-11-06 15:05 | XMS_ITS | Encounter Summary ---
Author Organization [facility] Address [address] [place] [address] Phone Care Team Providers Care Body Piercer Name Role Phone Yoil Townsend MD Primary Care Provider [phone] Encounter Details Date Type Department Care Team (Late Contact Info) Description 12/04/2022 Documentation Only [facility] [address] [place] [address] Chester Ventura MD [address] [place] [address] [place] [address] Social History Tobacco Use Types [...] Visit [facility] [address] [place] [address] Chester Ventura MD [address] [place] [address] [place] [address] documented as of this encounter Visit Diagnoses Not on filedocumented in this encounter Care Teams Body Piercer Relationship Specialty Start Date End Date Yoli Townsend MD [address] [place], [place] PCP - General 06/09/19 documented as of this encounter
--- OUTSIDE RECORDS SUMMARY | 2024-11-06 15:05 | XMS_ITS | Encounter Summary ---
Author Organization [facility] Address [address] [place] [address] Phone Care Team Providers Care Organic Lab Worker Name Role Phone Yoli Townsend MD Primary Care Provider [phone] Encounter Details Date Type Department Care Team (Late Contact Info) Description 11/30/2022 Documentation Only [facility] [address] [place] [id number] Chester Ventura MD [address] [place] [address] [place] [address] Social History Tobacco Use Types [...] Visit [facility] [address] [place] [address] Chester Ventura MD [address] [facility] [facility] [place] [address] documented as of this encounter Visit Diagnoses Not on filedocumented in this encounter Care Teams Organic Lab Worker Relationship Specialty Start Date End Date Yoli Townsend MD [address] [place], [place] PCP - General 06/09/19 documented as of this encounter
--- OUTSIDE RECORDS SUMMARY | 2024-11-06 15:05 | XMS_ITS | Encounter Summary ---
Author Organization [facility] Address [address] [place] [address] Phone Care Team Providers Care Highway Maintainer Name Role Phone Yoli Townsend MD Primary Care Provider [phone] Encounter Details Date Type Department Care Team (Late Contact Info) Description 06/01/2022 Documentation Only [facility] [address] [place] [address] Chester Ventura MD [address] [place] [address] [place] [address] Social History Tobacco Use Types [...] Visit [facility] [address] [place] [address] Chester Ventura MD [address] [place] [address] [place] [address] documented as of this encounter Visit Diagnoses Not on filedocumented in this encounter Care Teams Highway Maintainer Relationship Specialty Start Date End Date Yoli Townsend MD [address] [place], [place] PCP - General 06/09/19 documented as of this encounter
--- OUTSIDE RECORDS SUMMARY | 2024-11-06 15:05 | XMS_ITS | Encounter Summary ---
Author Organization [facility] Address [address] [place] [address] Phone Care Team Providers Care Chair Mechanic Name Role Phone Yoli Townsend MD Primary Care Provider [phone] Encounter Details Date Type Department Care Team (Late Contact Info) Description 06/18/2022 Documentation Only [facility] [address] [place] [address] Chester Ventura MD [address] [place] [address] [place] [address] Social History Tobacco Use Types [...] Visit [facility] [address] [place] [address] Chester Ventura MD [address] [place] [address] [place] [address] documented as of this encounter Visit Diagnoses Not on filedocumented in this encounter Care Teams Chair Mechanic Relationship Specialty Start Date End Date Yoli oTwnsend MD [address] [place], [place] PCP - General 06/09/19 documented as of this encounter
--- OUTSIDE RECORDS SUMMARY | 2024-11-06 15:05 | XMS_ITS | Encounter Summary ---
Author Organization [facility] Address [address] [place] [address] Phone Care Team Providers Care Emergency Registrar Name Role Phone Yoli Townsend MD Primary Care Provider [phone] Encounter Details Date Type Department Care Team (Late Contact Info) Description 12/04/2022 Documentation Only [facility] [address] [place] [address] Chester Ventura MD [address] [place] [address] [place] [address] Social History Tobacco Use Types [...] Visit [facility] [address] [place] [address] Chester Ventura MD [address] [place] [address] [place] [address] documented as of this encounter Visit Diagnoses Not on filedocumented in this encounter Care Teams Emergency Registrar Relationship Specialty Start Date End Date Yoli Townsend MD [address] [place], [place] PCP - General 06/09/19 documented as of this encounter
--- OUTSIDE RECORDS SUMMARY | 2024-11-06 15:06 | XMS_ITS ---
Author Organization [facility] Address [address] [place] [address] Care Team Providers Care Servicer Coin Machines Name Role Phone Yoli Townsend Primary Care Provider UnavailKostas Love Unavailable [phone] Allergies No Known Allergies REASON FOR VISIT Patient presents today for elevated lft's Medications Medication SIG (Take, Route, Frequency, Duration) Notes Start Date End Date Status Rosuvastatin Calcium 40 MG TOME MARK ANTHONY TABL ETA POR V A ORAL A DIARIO Oral for 90 Active Jardiance 10 MG Oral for 90 Ac tive Vitamin D-[address] 25 MCG (1000 UT) Oral for 90 Active Vitamin B-6 100 MG Oral for 90 Active Ezetimibe 10 MG Oral for 90 Ac tive Baclofen 10 MG Oral for 30 Act yocasta traMADol HCl 50 MG TAKE 1 TABLET BY BELINDA TH 2 TIMES A DAY NEEDED FOR PAIN FOR 30 DAYS Oral for 30 Active Omeprazole 20 MG 1 Orally QAM for 30 day(s) 2021 Active Ursodiol 300 MG tome 2 capsulas por via oral dos veces al ivelisse Orally Twice a day for 30 days Active Allopurinol 100 MG 1 tablet Orally Once a day Active Vitamin D2 10 MCG (400 UNIT) 2 tablets Orally Once a day for 30 day(s) Active Losartan Potassium A ctive Pioglitazone HCl Act yocasta metFORMIN HCl 500mg Orally Twice a day Active Fish Oil 1000 MG 1 capsule Orally Onc e a day Active Vitamin C 500 MG as directed Orally Active PriLOSEC 20 MG 1 capsule Orally Onc e a day for 30 days Active Ozempic (1 MG/DOSE) 4 MG/3ML Subcutaneous for 28 Active Ursodiol 300 MG TOME 2 CAPSULAS POR VIA ORAL DOS VECES AL IVELISSE Active Repatha Pushtronex System 420 MG/3.5ML INJECT 420MG POR V A SUBCUT MATT ONE A MONTH Subcutaneous for 30 Active Vital Signs Blood pressure systolic 00 mm Hg 05/28/20 Blood pressure diastolic 00 mm Hg 024 Height 61 in 05/28/2024 Weight 197 lbs 05/28/2024 BMI 37.22 kg/m2 05/28/2024 Encounters Encounter Location Date Provider Diagnosis [facility] [address] [place] [address] 05/28/2024 Kostas Erazo Fatty liver K76.0 ; Elevated liver enzymes R74.8 ; Liver fibrosis K74.00 and GERD without esophagitis K21.9 Assessments Encounter Date Diagnosis (ICD Code) Assessment Notes Treatment Notes Treatment Clinical Notes Section Notes 05/28/2024 Fatty liver (ICD-10 - K76.0) Overall, Heather appears well. She does not show any signs nor have any symptoms of progressive liver disease. I shall check an abdominal ultrasound and some followup laboratories today including a liver profile, liver fibrosis score, and an alpha-fetoprotei n level in regard to the underlying history of fatty liver with some fibrosis. We did review that better control of her diabetes, as well as weight-loss, would help with this condition. Hopefully being on the Ozempic will help with this. I did advise her to continue the current regimen of the ursodiol. Her reflux seems to be quite stable on her current regimen of her PPI and I advised her to continue that. She is not having any new or worrisome symptoms to suggest the need for endoscopy at this time. We did review that she will be due for a followup screening colonoscopy in 2026. I will plan to see her in one year for a followup visit but did advise her to certainly call should she have any problems or questions I can be of assistance with in the interim. Heather was comfortable with this plan. Thank you again for allowing me to participate in Heather's care. I shall continue to keep you advised of her progress. 05/28/2024 Elevated liver enzymes (ICD-10 - R74.8) Overall, Heather appears well. She does not show any signs nor have any symptoms of progressive liver disease. I shall check an abdominal ultrasound and some followup laboratories today including a liver profile, liver fibrosis score, and an alpha-fetoprotei n level in regard to the underlying history of fatty liver with some fibrosis. We did review that better control of her diabetes, as well as weight-loss, would help with this condition. Hopefully being on the Ozempic will help with this. I did advise her to continue the current regimen of the ursodiol. Her reflux seems to be quite stable on her current regimen of her PPI and I advised her to continue that. She is not having any new or worrisome symptoms to suggest the need for endoscopy at this time. We did review that she will be due for a followup screening colonoscopy in 2026. I will plan to see her in one year for a followup visit but did advise her to certainly call should she have any problems or questions I can be of assistance with in the interim. Heather was comfortable with this plan. Thank you again for allowing me to participate in Heather's care. I shall continue to keep you advised of her progress. 05/28/2024 Liver fibrosis (ICD-10 - K74.00) Overall, Heather appears well. She does not show any signs nor have any symptoms of progressive liver disease. I shall check an abdominal ultrasound and some followup laboratories today including a liver profile, liver fibrosis score, and an alpha-fetoprotei n level in regard to the underlying history of fatty liver with some fibrosis. We did review that better control of her diabetes, as well as weight-loss, would help with this condition. Hopefully being on the Ozempic will help with this. I did advise her to continue the current regimen of the ursodiol. Her reflux seems to be quite stable on her current regimen of her PPI and I advised her to continue that. She is not having any new or worrisome symptoms to suggest the need for endoscopy at this time. We did review that she will be due for a followup screening colonoscopy in 2026. I will plan to see her in one year for a followup visit but did advise her to certainly call should she have any problems or questions I can be of assistance with in the interim. Heather was comfortable with this plan. Thank you again for allowing me to participate in Heather's care. I shall continue to keep you advised of her progress. 05/28/2024 GERD without esophagitis (ICD-10 - K21.9) Overall, Heather appears well. She does not show any signs nor have any symptoms of progressive liver disease. I shall check an abdominal ultrasound and some followup laboratories today including a liver profile, liver fibrosis score, and an alpha-fetoprotei n level in regard to the underlying history of fatty liver with some fibrosis. We did review that better control of her diabetes, as well as weight-loss, would help with this condition. Hopefully being on the Ozempic will help with this. I did advise her to continue the current regimen of the ursodiol. Her reflux seems to be quite stable on her current regimen of her PPI and I advised her to continue that. She is not having any new or worrisome symptoms to suggest the need for endoscopy at this time. We did review that she will be due for a followup screening colonoscopy in 2026. I will plan to see her in one year for a followup visit but did advise her to certainly call should she have any problems or questions I can be of assistance with in the interim. Heather was comfortable with this plan. Thank you again for allowing me to participate in Heather's care. I shall continue to keep you advised of her progress. Plan Of Treatment Medication Medication Name Sig Start Date Stop Date Notes Ursodiol 300 MG tome 2 capsulas por via oral dos veces al ivelisse Orally Twice a day for 30 days PriLOSEC 20 MG 1 capsule Orally Once a day for 30 days Pending Test Test Name Order Date LIVER PROFILE 05/28/2024 CBC w DIFF 05/28/2024 ALPHA-FETOPROTEIN,TUMOR MARKER 4 Prothrombin Time INR 05/28/2024 Liver Fibrosis Pnl 05/28/2024 US abdomen comp w elastography 4 Next Appt Details Follow Up: 1 Year, Reason: Provider Name:Kostas Erazo , 05/27/2025 11:00:00 AM, [address] [place] [address], Suite [facility], [place], [address], Progress Notes * HEATHER COMBS EDOB: (64 yo F)Acc No.[id number]:05/28/2024 Progress Notes Patient:?HEATHER COMBS Provider:?Kostas Erazo MD :1960???Age:64 Y???Sex:Female D ate:05/28/2024 Address:[address], [place] , [id number] Pcp:Yoli Padilla Subjective: * Chief Complaints: * ???Patient presents today fo r elevated lft's * HPI: ???incontinence:? I saw Heather in followup today in her to her underlying history of fatty liver with elevated LFTs and some liver fibrosis, as well as her gastroesophageal reflux. ?I last saw Heather in May of 2023. Since that time she reports that she has basically been feeling well. She remains on daily Prilosec with good relief of reflux other than a couple of episodes during the week. She denies any significant heartburn, dysphagia, anorexia, early satiety, nausea, nor vomiting. She describes her bowel movements have been fairly regular and without any signs of bleeding. She denies any abdominal pain, signs of jaundice, nor any unintentional weight loss. She denies any increasing abdominal girth, edema, pruritus, nor fatigue. She reports that she has remained compliant with her ursodiol for the fatty liver. ?Her most recent labs from December revealed a normal liver profile except for an ALT of 33. She had a normal CBC with platelet count in December as well. Her hemoglobin A1c was elevated at 8.1 just last week. She has been using Ozempic for about 3 months now. * ROS:?General/Constitutional:?Change in appetite?denies.?Chills?denies.?Fatigue?denies.?Ophthalmologic:?Patient denies? Negative..?ENT:?Patient denies?Negative..?Respiratory:?Patient denies?No coughing/hemoptysis..?Cardiovascular:?Patient denies? No chest pain/orthopnea..?Gastrointestinal:?Comments?See HPI for details.?Genitourinary:?Patient denies? No dysuria/hematuria..?Musculoskeletal:?Patient denies? No specific arthralgias/myalgias..?Skin:?Patient denies?No rash/pruritus..?Neurologic:?Patient denies? No headaches/seizures..?Psychiatric:?Patient denies?Negative..? * Medical History:? * Surgical History:?CCY PINA BT L * Hospitalization/Major Diagno stic Procedure:?No Hospitalization History. * Family History:?Father: dece ased.?Mother: , diagnosed with HTN (hypertension).?Siblings: alive, cervical cancer sister.? No hx of colorectal cancer nor liver disease. * Social History:?Tobacco Use:?Tobacco Use/Smoking?Are you a: nonsmoker.?Drugs/Alcohol:?Alcohol Screen?Points: 0, Interpretation: Negative.?Miscellaneous:?Marital status: single. Occupation: On disability. ???Nonsmoker; no alcohol. * Medications:?TakingVitamin C 500 MG Capsule as directed Orally metFORMIN HCl 500mg Tablet Orally Twice a dayFish Oil 1000 MG Tablet Chewable 1 capsule Orally Once a dayLosartan Potassium Pioglitazone HCl Allopurinol 100 MG Tablet 1 tablet Orally Once a dayVitamin D2 10 MCG (400 UNIT) Tablet 2 tablets Orally Once a dayUrsodiol 300 MG Capsule TOME 2 CAPSULAS POR VIA ORAL DOS VECES AL IVELISSE Orally BIDOmeprazole 20 MG Capsule Delayed Release 1 Orally QAMtraMADol HCl 50 MG Tablet TAKE 1 TABLET BY MOUTH 2 TIMES A DAY NEEDED FOR PAIN FOR 30 DAYS Oral Baclofen 10 MG Tablet Oral Rosuvastatin Calcium 40 MG Tablet TOME MARK ANTHONY TABLETA POR V A ORAL A DIARIO Oral Vitamin B-6 100 MG Tablet Oral Ezetimibe 10 MG Tablet Oral Jardiance 10 MG Tablet Oral Vitamin D-[address] 25 MCG (1000 UT) Tablet Oral PriLOSEC 20 MG Capsule Delayed Release 1 capsule Orally Once a dayUrsodiol 300 MG Capsule TOME 2 CAPSULAS POR VIA ORAL DOS VECES AL IVELISSE Repatha Pushtronex System 420 MG/3.5ML Solution Cartridge INJECT 420MG POR V A SUBCUT MATT ONE A MONTH Subcutaneous Ozempic (1 MG/DOSE) 4 MG/3ML Solution Pen-injector Subcutaneous Taking Vitamin C 500 MG Capsule as directed Orally Taking metFORMIN HCl 500mg Tablet Orally Twice a dayTaking Fish Oil 1000 MG Tablet Chewable 1 capsule Orally Once a dayTaking Losartan Potassium Taking Pioglitazone HCl Taking Allopurinol 100 MG Tablet 1 tablet Orally Once a dayTaking Vitamin D2 10 MCG (400 UNIT) Tablet 2 tablets Orally Once a dayTaking Ursodiol 300 MG Capsule TOME 2 CAPSULAS POR VIA ORAL DOS VECES AL IVELISSE Orally BIDTaking Omeprazole 20 MG Capsule Delayed Release 1 Orally QAMTaking traMADol HCl 50 MG Tablet TAKE 1 TABLET BY MOUTH 2 TIMES A DAY NEEDED FOR PAIN FOR 30 DAYS Oral Taking Baclofen 10 MG Tablet Oral Taking Rosuvastatin Calcium 40 MG Tablet TOME MARK ANTHONY TABLETA POR V A ORAL A DIARIO Oral Taking Vitamin B-6 100 MG Tablet Oral Taking Ezetimibe 10 MG Tablet Oral Taking Jardiance 10 MG Tablet Oral Taking Vitamin D-[address] 25 MCG (1000 UT) Tablet Oral Taking PriLOSEC 20 MG Capsule Delayed Release 1 capsule Orally Once a dayTaking Ursodiol 300 MG Capsule TOME 2 CAPSULAS POR VIA ORAL DOS VECES AL IVELISES Taking Repatha Pushtronex System 420 MG/3.5ML Solution Cartridge INJECT 420MG POR V A SUBCUT MATT ONE A MONTH Subcutaneous Taking Ozempic (1 MG/DOSE) 4 MG/3ML Solution Pen-injector Subcutaneous DiscontinuedMiraLax (colon prep) 17 GM/SCOOP Powder 1 238 Gm bottle mixed with Gatorade or Crystal Light Orally begin at 5:00 p.m. the day before the procedureDulcolax (colon prep) 5 MG Tablet Delayed Release take at 3:00 p.m and 7:00p.m. Orally two tablets twice a day for one dayTrulicity 0.75 MG/0.5ML Solution Pen-injector as directed Subcutaneous as directedMedication List reviewed and reconciled with the patientDiscontinued MiraLax (colon prep) 17 GM/SCOOP Powder 1 238 Gm bottle mixed with Gatorade or Crystal Light Orally begin at 5:00 p.m. the day before the procedureDiscontinued Dulcolax (colon prep) 5 MG Tablet Delayed Release take at 3:00 p.m and 7:00p.m. Orally two tablets twice a day for one dayDiscontinued Trulicity 0.75 MG/0.5ML Solution Pen-injector as directed Subcutaneous as directedMedication List reviewed and reconciled with the patient * Allergies:?N.K.D.A.yes[Aller gies Verified] Objective: * Vitals:?Wt: 197 lbs, Ht: 61 in, BMI:37.22 Index, BP: 00/00 mm Hg. * Examination: ???General Examination: ?GENERAL APPEARANCE:?pleasant, well nourished, well developed, in no acute distress.?EYES:?sclera non-icteric.?ORAL CAVITY:?mucosa moist.?NECK/THYROID:?no cervical lymphadenopathy, neck supple.?SKIN:?nonjaundiced, no spider angiomata..?HEART:?S1, S2 normal.?LUNGS:?clear to auscultation bilaterally.?ABDOMEN:?normal bowel sounds, no guarding or rigidity, no hepatosplenomegaly, no masses palpable, soft, nontender, nondistended..?EXTREMITIES:?no edema.?NEUROLOGIC:?alert and oriented.? Assessment: * Assessment: 1.?Fatty liver - K76.0 (Prim coco)?2.?Elevated liver enzymes - R74.8?3.?Liver fibrosis - K74.00?4.?GERD without esophagitis - K21.9? Overall, Heather appears well. She does not show any signs nor have any symptoms of progressive liver disease. I shall check an abdominal ultrasound and some followup laboratories today including a liver profile, liver fibrosis score, and an alpha-fetoprotein level in regard to the underlying history of fatty liver with some fibrosis. We did review that better control of her diabetes, as well as weight- loss, would help with this condition. Hopefully being on the Ozempic will help with this. I did advise her to continue the current regimen of the ursodiol. Her reflux seems to be quite stable on her current regimen of her PPI and I advised her to continue that. She is not having any new or worrisome symptoms to suggest the need for endoscopy at this time. We did review that she will be due for a followup screening colonoscopy in 2026. I will plan to see her in one year for a followup visit but did advise her to certainly call should she have any problems or questions I can be of assistance with in the interim. Heather was comfortable with this plan. Thank you again for allowing me to participate in Heather's care. I shall continue to keep you advised of her progress. Plan: * Treatment: * 2.?Elevated liver enzymes?LAB: LIVER PROFILE ?LAB: CBC w DIFF ?LAB: ALPHA-FETOPROTEIN,TUMOR MARKER ?LAB: Prothrombin Time INR ?LAB: Liver Fibrosis Pnl ?Imaging: US abdomen comp w elastography* sched for 06/11/24 at 8:00 am [facility] [place] dept 2nd floor nothig to eat or drink 8hrs prior * 3.?Liver fibrosis?LAB: LIVER PROFILE ?LAB: CBC w DIFF ?LAB: ALPHA-FETOPROTEIN,TUMOR MARKER ?LAB: Prothrombin Time INR ?LAB: Liver Fibrosis Pnl ?Imaging: US abdomen comp w elastography* sched for 06/11/24 at 8:00 am [facility] [place] dept 2nd floor nothig to eat or drink 8hrs prior * 4.?Others? Refill PriLOSEC Capsule Delayed Release, 20 MG, 1 capsule, Orally, Once a day, 30 days, 30, [id number];?Refill Ursodiol Capsule, 300 MG, tome 2 capsulas por via oral dos veces al ivelisse, Orally, Twice a day, 30 days, 120, Refills 11.?? * Procedure Codes:?3017F COLOR ECTAL CA SCREEN DOC [id number] TOBACCO [id number] BP SCR NOT PRFRM REC REASON NOS * Preventive Medicine:? ??Counseling:?Care goal follow-up plan:?Above Normal BMI Follow-up?Giving encouragement to exercise,?BMI management provided?Yes.? * Follow Up:?1 Year * * Sign off status: Completed true * Provider:?Kostas Erazo MD Date:? 024 Generated for Joanie castañeda/Bill/Ginette on:?11/06/2024 03:06 PM EDT History and Physical Notes * HPI (History of Present Illness) Category Sub-Category Detail Notes Category Not es incontinence I saw Heather in followup today in her to her underlying history of fatty liver with elevated LFTs and some liver fibrosis, as well as her gastroesophageal reflux. I last saw Heather in May of 2023. Since that time she reports that she has basically been feeling well. She remains on daily Prilosec with good relief of reflux other than a couple of episodes during the week. She denies any significant heartburn, dysphagia, anorexia, early satiety, nausea, nor vomiting. She describes her bowel movements have been fairly regular and without any signs of bleeding. She denies any abdominal pain, signs of jaundice, nor any unintentional weight loss. She denies any increasing abdominal girth, edema, pruritus, nor fatigue. She reports that she has remained compliant with her ursodiol for the fatty liver. Her most recent labs from December revealed a normal liver profile except for an ALT of 33. She had a normal CBC with platelet count in December as well. Her hemoglobin A1c was elevated at 8.1 just last week. She has been using Ozempic for about 3 months now. Examination Category Sub-Category Detail Notes Category Not es General Examination GENERAL APPEARANCE: pleasant , well nourished, well developed, in no acute distress EYES: sclera non-icteric NECK/THYROID: no cervical lymphade nopathy, neck supple HEART: S1, S2 normal LUNGS: clear to auscultatio n bilaterally ABDOMEN: normal bowel sounds, no guarding or rigidity, no hepatosplenomegaly, no masses palpable, soft, nontender, nondistended. NEUROLOGIC: alert and oriented SKIN: nonjaundiced, no spi evi angiomata. EXTREMITIES: no edema ORAL CAVITY: mucosa moist
--- OUTSIDE RECORDS SUMMARY | 2024-11-06 15:06 | XMS_ITS | Encounter Summary ---
Author Organization [facility], Address [address] [place] [address] Phone Care Team Providers Care Mixed Signal Design Engineer Name Role Phone Yoli Townsend MD Primary Care Provider [phone] Reason for Visit * Reason Comments Med Refill Encounter Details Date Type Department Care Team (Late Contact Info) Description 02/17/2020 Refill [facility] [address] [place] [address] Chester Ventura MD [address] [place] [address] Social History Tobacco Use Types [...] Encounters Date Type Department Care Team (Late Contact Info) Description 12/22/2024 1:30 PM EDT Office Visit [facility] [place], [address] [place] [address] Chester Ventura MD [address] [place] [address] documented as of this encounter Visit Diagnoses Not on filedocumented in this encounter Care Teams Mixed Signal Design Engineer Relationship Specialty Start Date End Date Yoli Townsend MD [address] [place] PCP - General 06/09/19 documented as of this encounter
--- OUTSIDE RECORDS SUMMARY | 2024-11-06 15:06 | XMS_ITS | Encounter Summary ---
Author Organization [facility] Address [address] [place] [address] Phone Care Team Providers Care Senior Foreman Name Role Phone Yoli Townsend MD Primary Care Provider [phone] Encounter Details Date Type Department Care Team (Late Contact Info) Description 06/12/2023 Documentation Only [facility] [address] [place] [phone] Chester Ventura MD [address] [place] [address] [place] [address] Social History Tobacco Use Types [...] Visit [facility] [address] [place] [address] Chester Ventura MD [address] [place] [address] documented as of this encounter Visit Diagnoses Not on filedocumented in this encounter Care Teams Senior Foreman Relationship Specialty Start Date End Date Yoli Townsend MD [address] [place], [place] PCP - General 06/09/19 documented as of this encounter
--- OUTSIDE RECORDS SUMMARY | 2024-11-06 15:06 | XMS_ITS | Encounter Summary ---
Author Organization [facility] Address [address] [place] [address] Phone Care Team Providers Care Clinical Research Nurse Name Role Phone Yoli Townsend MD Primary Care Provider [phone] Encounter Details Date Type Department Care Team (Late st Contact Info) Description 06/23/2024 Office Communication [facility] [address] [place] [id number] Chester Ventura MD [address] [facility] [address] [place] [address] Social History Tobacco Use Types [...] [facility] [address] [place] [address] Chester Ventura MD [address] [facility] [address] [place] [address] documented as of this encounter Visit Diagnoses Not on filedocumented in this encounter Care Teams Clinical Research Nurse Relationship Specialty Start Date End Date Yoli Townsend MD [address] [place], [place] PCP - General 06/09/19 documented as of this encounter
--- OUTSIDE RECORDS SUMMARY | 2024-11-06 15:06 | XMS_ITS | Encounter Summary ---
Author Organization [facility] Address [address] [place] [address] Phone Care Team Providers Care Laborer [employer]roleum [employer]inery Name Role Phone Yoli Townsend MD Primary Care Provider [phone] Encounter Details Date Type Department Care Team (Late st Contact Info) Description 09/27/2023 Documentation Only [facility] [address] [place] [address] Liliya Pérez [address] [place] [address] Social History Tobacco Use Types Packs/Day Years [...] [facility] [address] [place] [address] Chester Ventura MD [address] [place] [address] [place] [address] documented as of this encounter Visit Diagnoses Not on filedocumented in this encounter Care Teams Laborer [employer] Relationship Specialty Start Date End Date Yoli Townsend MD [address] [place], [place] PCP - General 06/09/19 documented as of this encounter
--- OUTSIDE RECORDS SUMMARY | 2024-11-06 15:06 | XMS_ITS | Encounter Summary ---
Author Organization [facility] Address [address] [place] [address] Phone Care Team Providers Care Labor Mediator Name Role Phone Yoli Townsend MD Primary Care Provider [phone] Encounter Details Date Type Department Care Team (Late Contact Info) Description 06/12/2023 Documentation Only [facility] [address] [place] [address] Chester Ventura MD [address] [place] [address] [place] [address] Social History Tobacco Use Types [...] Visit [facility] [address] [place] [address] Chester Ventura MD [address] [place] [address] [place] [address] documented as of this encounter Visit Diagnoses Not on filedocumented in this encounter Care Teams Labor Mediator Relationship Specialty Start Date End Date Yoli Townsend MD [address] [place], [place] PCP - General 06/09/19 documented as of this encounter
--- OUTSIDE RECORDS SUMMARY | 2024-11-06 15:06 | XMS_ITS | Clinical Summary ---
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 Phone Unavailable Primary Care Provider Unavailabl e Social History Tobacco Use Types Packs/Day Years Used Date Smoking Tobacco: Never Assessed Comments Unknown Sex and Gender Information Value Date Recorded Sex Assigned at Female 06/04/2022 10:16 AM EDT Legal Sex Female 10:16 AM EDT Gender Identity Female 06/04/2022 10:16 AM EDT Sexual Orientation Straight 06/04/2022 10 :16 AM EDT Plan of Treatment Health Maintenance Due Date Last Done Comments CT Colonography 1960 Colonoscopy 1960 Colorectal Cancer Screening 1960 Depression Screening 1960 FIT DNA/Cologuard 1960 FIT 1960 FOBT 1960 Sigmoidoscopy 1960 Alcohol/Substance Use Screening 1972 Tobacco Screening 1972 Pap Smear 1981 Cervical Cancer Screening 1990 HPV/Cotest 1990 Mammogram 2000 Zoster Vaccines (1 of 2) 2010 Pneumococcal Vaccine: 50+ Years (2 of 2 - PCV) 08/13/2012 08/13/2011 DTaP/Tdap/Td Vaccines (2 - T d or Tdap) 02/12/2022 02/13/2012 COVID-19 Vaccine (1 - 2023-2 5 season) 2024 Influenza Vaccine (#1) 04/05/202404/22/, 07/15/2003 RSV Patients and Patients Aged 60 years or older (1 - 1-dose 75+ series) 2035 Pneumococcal Vaccine: Pediatrics (0 to 5 Years) and At-Risk Patients (6 to 49) Years) Aged Out 08/13/2011 No longer eligible b ased on patient's age to complete this topic Hepatitis B Vaccines Completed 12/30/2014, 09/28/2014, 08/16/2014 HIB Vaccines Aged Out No longer eligi ble based on patient's age to complete this topic HPV Vaccines Aged Out No longer eligi ble based on patient's age to complete this topic Hepatitis A Vaccines Aged Out No long er eligible based on patient's age to complete this topic IPV Vaccines Aged Out No longer eligi ble based on patient's age to complete this topic Meningococcal Vaccine Aged Out No gregorio tami eligible based on patient's age to complete this topic RSV under 20 months Aged Out No longe r eligible based on patient's age to complete this topic Rotavirus Vaccines Aged Out No longer eligible based on patient's age to complete this topic
--- OUTSIDE RECORDS SUMMARY | 2024-11-06 15:06 | XMS_ITS | Encounter Summary ---
Author Organization [facility], Address [address] [place] [address] Phone Care Team Providers Care Kier Pleater Name Role Phone Yoli Townsend MD Primary Care Provider [phone] Reason for Visit * Reason Comments Med Refill Encounter Details Date Type Department Care Team (Late Contact Info) Description 02/18/2020 Refill [facility] [address] [place] [address] Chester Ventura MD [address] [facility] [place] [address] Social History Tobacco Use Types [...] Visit [facility] [place], [address] [place] [address] Chester Ventura MD [address] [facility] [address] [place] [address] documented as of this encounter Visit Diagnoses Not on filedocumented in this encounter Care Teams Kier Pleater Relationship Specialty Start Date End Date Yoli Townsend MD [address] [place] PCP - General 06/09/19 documented as of this encounter
--- OUTSIDE RECORDS SUMMARY | 2024-11-06 15:06 | XMS_ITS ---
Author Organization [facility] Address [address] [place] [address] Care Team Providers Care Splitter Head Name Role Phone Yoli Townsend Primary Care Provider Unavailab Kostas Murguia [phone] REASON FOR VISIT elevated lft's Encounters Encounter Location Date Provider Diagnosis [facility] [address] [place] [address] 08/13/2023 Kostas Erazo Plan Of Treatment Next Appt Details Provider Name:Kostas Erazo , 05/27/2025 11:00:00 AM, [address], [address], [place], [address], Progress Notes * HEATHER COMBS EDOB: (64 yo F)Acc No.[id number]:08/13/2023 Progress Notes Patient:?VICKIHEATHER GODDARD E Provider:?Kostas Erazo MD :1960???Age:63 Y???Sex:Female D ate:08/13/2023 Address:[address] [place] [address] [id number] Pcp:Yoli Padilla Subjective: * Chief Complaints: * ???1. Elevated lft's. * Medical History:? Objective: * Vitals:? Assessment: Plan: * Treatment: * * The named appointment provid er may or may not be the originator of this progress note, and it is not deemed complete until electronically signed by the appointment provider. Sign off status: Pending * Provider:?Kostas Erazo MD Date:? 024 Generated for Joanie castañeda/Bill/Sayraitting on:?11/06/2024 03:06 PM EDT
--- OUTSIDE RECORDS SUMMARY | 2024-11-06 15:06 | XMS_ITS ---
Author Organization [facility] Address [address] [place] [address] Care Team Providers Care Field Account Director Name Role Phone Yoli Townsend Primary Care Provider Kostas Hinson Unavailable [phone] Allergies No Known Allergies Results Component Value Reference Range Notes Prothrombin Time INR Reviewed date:05/31/2023 12:32:48 AM Interpretation: Performing Lab:[facility], [address] [place] [id number] Notes/Report: Prothrombin Time 12.0 11.1-13.3 SEC INTERNATIONAL NORM RATIO 1.0 0.9-1.1 INTERNATIONAL NORMALIZED RATIO (INR) REFERENCE RANGES Reference Range For patients not on anticoagulant therapy: 0.9 - 1.1 INR ranges for oral anticoagulant therapy: For prevention and treatment of venous thrombosis and pulmonary embolism: 2.0 - 3.0 For acute myocardial infarction with aspirin therapy: 2.0 - 3.0 For acute myocardial infarction without aspirin therapy: 3.0 - 4.0 For patients with mechanical prosthetic heart valves: 2.5 - 3.5 Liver Fibrosis Pnl Reviewed date:06/05/2023 06:22:40 PM Interpretation: Performing Lab:[facility], [address] [place] [phone] Notes/Report: Liver Fibrosis Score 0.14 Liver Fibrosis Stage F0 Liver Fibrosis Interpretation SEE NOTE no fibrosis Fibro Test Score (f) Metavir Score f>=0 and f<=0.21 : F0 (no fibrosis) f>0.21 and f<=0.27 : F0-F1 (no fibrosis) f>0.27 and f<=0.31 : F1 (minimal fibrosis) f>0.31 and f<=0.48 : F1-F2 (minimal fibrosis) f>0.48 and f<=0.58 : F2 (moderate fibrosis) f>0.58 and f<=0.72 : F3 (advanced fibrosis) f>0.72 and f<=0.74 : F3-F4 (advanced fibrosis) f>0.74 and f<=1.00 : F4 (severe fibrosis) Nec Inflam Act Score 0.07 Nec Inflam Act Grade A0 Nec Inflam Act Interpretation SEE NOTE no activity ActiTest Score (a) Metavir Score a>=0 and a<=0.17 : A0 (no activity) a>0.17 and a<=0.29 : A0-A1 (no activity) a>0.29 and a<=0.36 : A1 (minimal activity) a>0.36 and a<=0.52 : A1-A2 (minimal activity) a>0.52 and a<=0.60 : A2 (significant activity) a>0.60 and a<=0.62 : A2-A3 (significant activity) a>0.62 and a<=1.00 : A3 (severe activity) GMR-Kiuox-5-Macroglobulin 251 106-279 mg/dL FIB-Haptoglobin 193 43-212 mg/dL FIB-Apolipoprotein A1 203 101-198 mg/dL FIB-Total Bilirubin 0.5 0.2-1.2 mg/dL FIB-GGT 20 3-65 U/L FIB-ALT 22 6-29 U/L Reference ID [id number] Footnote SEE NOTE The reliability of results is dependent on compliance with the preanalytical and analytical conditions recommended by [employer]. The tests have to be deferred for: acute hemolysis, acute hepatitis, acute inflammation, extra hepatic cholestasis. The advice of a specialist should be sought for interpretation in chronic hemolysis and Gilbert's syndrome. The test interpretation is not validated in liver transplant patients. Isolated extreme values of one of the components should lead to caution in interpreting the results. In case of discordance between a biopsy result and a test, it is recommended to seek the advice of a specialist. The causes of these discordances could be due to a flaw of the test or to a flaw in the biopsy: i.e. a liver biopsy has a 33% variability rate for one fibrosis stage. FibroTest is interpretable for chronic hepatitis B and C, alcoholic and non alcoholic steatosis. ActiTest is interpretable for chronic hepatitis B and C. The performance characteristics have been determined by [facility] [facility]. It has not been cleared or approved by the U.S. Food and Drug Administration. Performance characteristics refer to the analytical performance of the test. [employer], [employer], the associated logo, [employer] and all associated [employer] wild are the registered trademarks of [employer]. All third democrat wild - (R) and (TM) - are the property of their respective owners. (C) [phone] [employer]. All rights reserved. THIS TEST WAS PERFORMED AT: [employer] [facility] [place] [address] [place] [address] GWENDOLYN SAENZ MD,PHD,ZAIRA REASON FOR VISIT Patient presents today for elevated lft's Medications Medication SIG (Take, Route, Frequency, Duration) Notes Start Date End Date Status PriLOSEC 20 MG 1 capsule Orally Onc e a day for 30 days Active Ursodiol 300 MG TOME 2 CAPSULAS POR VIA ORAL DOS VECES AL IVELISSE Active Vitamin C 500 MG as directed Orally Active metFORMIN HCl 500mg Orally Twice a day Active Fish Oil 1000 MG 1 capsule Orally Onc e a day Active Vitamin B-6 100 MG Oral for 90 Active Ezetimibe 10 MG Oral for 90 Ac tive Jardiance 10 MG Oral for 90 Ac tive Vitamin D-[address] 25 MCG (1000 UT) Oral for 90 Active Rosuvastatin Calcium 40 MG TOME MARK ANTHONY TABL ETA POR V A ORAL A DIARIO Oral for 90 Active Omeprazole 20 MG 1 Orally QAM for 30 day(s) 2021 Active MiraLax (colon prep) 17 GM/SCOOP 1 238 Gm bottle mixed with Gatorade or Crystal Light Orally begin at 5:00 p.m. the day before the procedure for 1 day 01/23/2022 Active Dulcolax (colon prep) 5 MG take at 3:00 p.m and 7:00p.m. Orally two tablets twice a day for one day for 1 day 01/23/2022 Active traMADol HCl 50 MG TAKE 1 TABLET BY BELINDA 2 TIMES A DAY NEEDED FOR PAIN FOR 30 DAYS Oral for 30 Active Baclofen 10 MG Oral for 30 Act yocasta Allopurinol 100 MG 1 tablet Orally Once a day Active Vitamin D2 10 MCG (400 UNIT) 2 tablets Orally Once a day for 30 day(s) Active Omeprazole 20mg Acti ve Ursodiol 300 MG TOME 2 CAPSULAS POR VIA ORAL DOS VECES AL IVELISSE Orally BID Active Pioglitazone HCl Act yocasta Losartan Potassium A ctive Trulicity 0.75 MG/0.5ML as directed Subc utaneous as directed Active Vital Signs Temperature 96.8 degrees Fahrenheit 05/29/20 23 Blood pressure systolic 000 mm Hg 05/29/20 23 Blood pressure diastolic 00 mm Hg 023 Height 61 in 05/29/2023 Weight 197 lb 4 oz lbs 05/29/2023 BMI 37.27 kg/m2 05/29/2023 Encounters Encounter Location Date Provider Diagnosis [facility] [address] [place] [address] 05/29/2023 Kostas Erazo Fatty liver K76.0 ; Elevated liver enzymes R74.8 ; Liver fibrosis K74.00 and Encounter for screening for malignant neoplasm of colon Z12.11 Assessments Encounter Date Diagnosis (ICD Code) Assessment Notes Treatment Notes Treatment Clinical Notes Section Notes 05/29/2023 Fatty liver (ICD-10 - K76.0) Overall, Heather appears well. We did review her history of fatty liver and discussed the importance of maintaining better control of her diabetes, trying to lose weight, and eating a healthy diet in hopes of improving her LFTs and preventing further liver damage from steatohepatitis. I did advise her to continue the current regimen of her ursodiol. I shall check some followup laboratories including a liver profile, liver fibrosis panel, and alpha-fetoprotei n level. Given her CT scan earlier this year I don't think she needs any imaging study of her liver. I did advise her to continue her Prilosec as needed for symptomatic relief of reflux. Although her colonoscopy was negative last year, I did recommend a followup colonoscopy in 2026 due to the somewhat limited bowel prep last year. If things remain stable I will plan to see her in one year for a followup visit. I advised her to contact me in the interim if she has any problems or questions I can be of assistance with. Heather was comfortable with this plan. Thank you again for allowing me to participate in Heather's care. I shall continue to keep you advised of her progress. 05/29/2023 Elevated liver enzymes (ICD-10 - R74.8) Overall, Heather appears well. We did review her history of fatty liver and discussed the importance of maintaining better control of her diabetes, trying to lose weight, and eating a healthy diet in hopes of improving her LFTs and preventing further liver damage from steatohepatitis. I did advise her to continue the current regimen of her ursodiol. I shall check some followup laboratories including a liver profile, liver fibrosis panel, and alpha-fetoprotei n level. Given her CT scan earlier this year I don't think she needs any imaging study of her liver. I did advise her to continue her Prilosec as needed for symptomatic relief of reflux. Although her colonoscopy was negative last year, I did recommend a followup colonoscopy in 2026 due to the somewhat limited bowel prep last year. If things remain stable I will plan to see her in one year for a followup visit. I advised her to contact me in the interim if she has any problems or questions I can be of assistance with. Heather was comfortable with this plan. Thank you again for allowing me to participate in Heather's care. I shall continue to keep you advised of her progress. 05/29/2023 Liver fibrosis (ICD-10 - K74.00) Overall, Heather appears well. We did review her history of fatty liver and discussed the importance of maintaining better control of her diabetes, trying to lose weight, and eating a healthy diet in hopes of improving her LFTs and preventing further liver damage from steatohepatitis. I did advise her to continue the current regimen of her ursodiol. I shall check some followup laboratories including a liver profile, liver fibrosis panel, and alpha-fetoprotei n level. Given her CT scan earlier this year I don't think she needs any imaging study of her liver. I did advise her to continue her Prilosec as needed for symptomatic relief of reflux. Although her colonoscopy was negative last year, I did recommend a followup colonoscopy in 2026 due to the somewhat limited bowel prep last year. If things remain stable I will plan to see her in one year for a followup visit. I advised her to contact me in the interim if she has any problems or questions I can be of assistance with. Heather was comfortable with this plan. Thank you again for allowing me to participate in Heather's care. I shall continue to keep you advised of her progress. 05/29/2023 Encounter for screening for malignant neoplasm of colon (ICD-10 - Z12.11) Repeat colonoscopy in 03/2027 Overall, Heather appears well. We did review her history of fatty liver and discussed the importance of maintaining better control of her diabetes, trying to lose weight, and eating a healthy diet in hopes of improving her LFTs and preventing further liver damage from steatohepatitis. I did advise her to continue the current regimen of her ursodiol. I shall check some followup laboratories including a liver profile, liver fibrosis panel, and alpha-fetoprotei n level. Given her CT scan earlier this year I don't think she needs any imaging study of her liver. I did advise her to continue her Prilosec as needed for symptomatic relief of reflux. Although her colonoscopy was negative last year, I did recommend a followup colonoscopy in 2026 due to the somewhat limited bowel prep last year. If things remain stable I will plan to see her in one year for a followup visit. I advised her to contact me in the interim if she has any problems or questions I can be of assistance with. Heather was comfortable with this plan. Thank you again for allowing me to participate in Heather's care. I shall continue to keep you advised of her progress. Plan Of Treatment Medication Medication Name Sig Start Date Stop Date Notes PriLOSEC 20 MG 1 capsule Orally Once a day for 30 days Ursodiol 300 MG TOME 2 CAPSULAS POR VIA ORAL DOS VECES AL IVELISSE Treatment Notes Assessment Notes Encounter for screening for malignant ne oplasm of colon Repeat colonoscopy in 03/2027 Pending Test Test Name Order Date LIVER PROFILE 05/29/2023 CBC w DIFF 05/29/2023 ALPHA-FETOPROTEIN,TUMOR MARKER 3 Next Appt Details Follow Up: 1 Year, Reason: Provider Name:Kostas Erazo , 05/27/2025 11:00:00 AM, [address] [place] [address], [address], [place], [address], Progress Notes * HEATHER COMBS EDOB: (63 yo F)Acc No.[id number]:05/29/2023 Progress Notes Patient:?HEATHER COMBS E Provider:?Kostas Erazo MD :1960???Age:63 Y???Sex:Female D ate:05/29/2023 Address:[facility] [address], [place], [phone] Pcp:Yoli Padilla Subjective: * Chief Complaints: * ???Patient presents today fo r elevated lft's * HPI: ???incontinence:? I saw Heather in followup today in regard to her history of fatty liver and elevated LFTs. ?I last saw Heather in March of 2022, at which time she underwent a negative followup screening colonoscopy. She reports that she presently feels well. She remains on ursodiol at 600 mg b.i.d. in regard to her history of fatty liver. She denies any jaundice, pruritus, significant fatigue, increasing abdominal girth, nor abdominal pain. Her most recent labs in March revealed some slight elevations of liver enzymes with an AST of 75 and ALT of 58, but with a normal bilirubin, alkaline phosphatase, and albumin. A CT scan of her abdomen in January described the liver as normal other than some fatty infiltration. She is status-post a previous cholecystectomy and the bile duct was somewhat dilated at 1.5 cm. However, the pancreas was unremarkable. There was no splenomegaly or ascites. As you know, her hemoglobin A1c at that time was also elevated at 8.1 with a fasting blood sugar of 168. ?She is using Prilosec 2 or 3 times per week with good relief of reflux symptoms. She denies any significant heartburn, dysphagia, anorexia, nausea, nor vomiting. Her bowel movements have been regular and without any signs of bleeding. * ROS:?General/Constitutional:?Change in appetite?denies.?Chills?denies.?Fatigue?denies.?Ophthalmologic:?Patient denies? Negative..?ENT:?Patient denies?Negative..?Respiratory:?Patient denies?No coughing/hemoptysis..?Cardiovascular:?Patient denies? No chest pain/orthopnea..?Gastrointestinal:?Comments?See HPI for details.?Genitourinary:?Patient denies? No dysuria/hematuria..?Musculoskeletal:?Patient denies? No specific arthralgias/myalgias..?Skin:?Patient denies?No rash/pruritus..?Neurologic:?Patient denies? No headaches/seizures..?Psychiatric:?Patient denies?Negative..? * Medical History:? * Surgical History:?CCY PINA BT L * Hospitalization/Major Diagno stic Procedure:?Denies Past Hospitalization * Family History:?Father: dece ased.?Mother: , diagnosed [...] Tablet Chewable 1 capsule Orally Once a dayPriLOSEC 20 MG Capsule Delayed Release 1 capsule Orally Once a dayLosartan Potassium Trulicity 0.75 MG/0.5ML Solution Pen-injector as directed Subcutaneous as directedPioglitazone HCl Allopurinol 100 MG Tablet 1 tablet Orally Once a dayVitamin D2 10 MCG (400 UNIT) Tablet 2 tablets Orally Once a dayUrsodiol 300 MG Capsule TOME 2 CAPSULAS POR VIA ORAL DOS VECES AL IVELISSE Omeprazole 20mg Ursodiol 300 MG Capsule TOME 2 CAPSULAS POR VIA ORAL DOS VECES AL IVELISSE Orally BIDOmeprazole 20 MG Capsule Delayed Release 1 Orally QAMMiraLax (colon prep) 17 GM/SCOOP Powder 1 238 Gm bottle mixed with Gatorade or Crystal Light Orally begin at 5:00 p.m. the day before the procedureDulcolax (colon prep) 5 MG Tablet Delayed Release take at 3:00 p.m and 7:00p.m. Orally two tablets twice a day for one daytraMADol HCl 50 MG Tablet TAKE 1 TABLET [...] St 25 MCG (1000 UT) Tablet Oral Medication List reviewed and reconciled with the patientTaking Vitamin C 500 MG Capsule as directed Orally Taking metFORMIN HCl 500mg Tablet Orally Twice a dayTaking Fish Oil 1000 MG Tablet Chewable 1 capsule Orally Once a dayTaking PriLOSEC 20 MG Capsule Delayed Release 1 capsule Orally Once a dayTaking Losartan Potassium Taking Trulicity 0.75 MG/0.5ML Solution Pen-injector as directed Subcutaneous as directedTaking Pioglitazone HCl Taking Allopurinol 100 MG Tablet 1 tablet Orally Once a dayTaking Vitamin D2 10 MCG (400 UNIT) Tablet 2 tablets Orally Once a dayTaking Ursodiol 300 MG Capsule TOME 2 CAPSULAS POR VIA ORAL DOS VECES AL IVELISSE Taking Omeprazole 20mg Taking Ursodiol 300 MG Capsule TOME 2 CAPSULAS POR VIA ORAL DOS VECES AL IVELISSE Orally BIDTaking Omeprazole 20 MG Capsule Delayed Release 1 Orally QAMTaking MiraLax (colon prep) 17 GM/SCOOP Powder 1 238 Gm bottle mixed with Gatorade or Crystal Light Orally begin at 5:00 p.m. the day before the procedureTaking Dulcolax (colon prep) 5 MG Tablet Delayed Release take at 3:00 p.m and 7:00p.m. Orally two tablets twice a day for one dayTaking traMADol HCl 50 MG Tablet TAKE 1 [...] St 25 MCG (1000 UT) Tablet Oral Medication List reviewed and reconciled with the patient * Allergies:?N.K.D.A.yes[Aller gies Verified] Objective: * Vitals:?Wt: 197 lb 4 oz, Ht: 61 in, BMI:37.27 Index, BP: 000/00 mm Hg, Temp: 96.8. * Examination: ???General Examination: ?GENERAL APPEARANCE:?pleasant, well nourished, well developed, in no acute distress.?EYES:?sclera non-icteric.?ORAL CAVITY:?mucosa moist.?NECK/THYROID:?no cervical lymphadenopathy, neck supple.?SKIN:?nonjaundiced, no spider angiomata..?HEART:?S1, S2 normal.?LUNGS:?clear to auscultation bilaterally.?ABDOMEN:?normal bowel sounds, no guarding or rigidity, no hepatosplenomegaly, no masses palpable, soft, nontender, nondistended..?EXTREMITIES:?no edema.?NEUROLOGIC:?alert and oriented.? Assessment: * Assessment: 1.?Fatty liver - K76.0 (Prim coco)?2.?Elevated liver enzymes - R74.8?3.?Liver fibrosis - K74.00?4.?Encounter for screening for malignant neoplasm of colon - Z12.11? Overall, Heather appears well. We did review her history of fatty liver and discussed the importance of maintaining better control of her diabetes, trying to lose weight, and eating a healthy diet in hopes of improving her LFTs and preventing further liver damage from steatohepatitis. I did advise her to continue the current regimen of her ursodiol. I shall check some followup laboratories including a liver profile, liver fibrosis panel, and alpha-fetoprotein level. Given her CT scan earlier this year I don't think she needs any imaging study of her liver. I did advise her to continue her Prilosec as needed for symptomatic relief of reflux. Although her colonoscopy was negative last year, I did recommend a followup colonoscopy in 2026 due to the somewhat limited bowel prep last year. If things remain stable I will plan to see her in one year for a followup visit. I advised her to contact me in the interim if she has any problems or questions I can be of assistance with. Heather was comfortable with this plan. Thank you again for allowing me to participate in Heather's care. I shall continue to keep you advised of her progress. Plan: * Treatment: ? Value Reference Range ?Prothrombin Time 12.0 11.1-1 3.3 - SEC * ?INTERNATIONAL NORM RATIO 1.0 0.9-1.1 - ?LAB: Liver Fibrosis Pnl* ? Value Reference Range ?Liver Fibrosis Score 0.14 - * ?Liver Fibrosis Stage F0 - * ?Liver Fibrosis Interpretation SEE NOTE - * ?Nec Inflam Act Score 0.07 - * ?Nec Inflam Act Grade A0 - * ?Nec Inflam Act Interpretation SEE NOTE - * ?TBA-Wbbsp-0-Macroglobulin 251 106-279 - mg/dL * ?FIB-Haptoglobin 193 43-212 - mg/dL * ?FIB-Apolipoprotein A1 203 A 1 01-198 - mg/dL * ?FIB-Total Bilirubin 0.5 0.2 -1.2 - mg/dL * ?FIB-GGT 20 3-65 - U/L * ?FIB-ALT 22 6-29 - U/L * ?Reference ID [id number] - * ?Footnote SEE NOTE - 2.?Elevated liver enzymes?LAB: LIVER PROFILE ?LAB: CBC w DIFF ?LAB: ALPHA-FETOPROTEIN,TUMOR MARKER ?LAB: Prothrombin Time INR* ? Value Reference Range ?Prothrombin Time 12.0 11.1-1 3.3 - SEC * ?INTERNATIONAL NORM RATIO 1.0 0.9-1.1 - ?LAB: Liver Fibrosis Pnl* ? Value Reference Range ?Liver Fibrosis Score 0.14 - * ?Liver Fibrosis Stage F0 - * ?Liver Fibrosis Interpretation SEE NOTE - * ?Nec Inflam Act Score 0.07 - * ?Nec Inflam Act Grade A0 - * ?Nec Inflam Act Interpretation SEE NOTE - * ?JJT-Byiar-2-Macroglobulin 251 106-279 - mg/dL * ?FIB-Haptoglobin 193 43-212 - mg/dL * ?FIB-Apolipoprotein A1 203 A 1 01-198 - mg/dL * ?FIB-Total Bilirubin 0.5 0.2 -1.2 - mg/dL * ?FIB-GGT 20 3-65 - U/L * ?FIB-ALT 22 6-29 - U/L * ?Reference ID [id number] - * ?Footnote SEE NOTE - 3.?Liver fibrosis?LAB: LIVER PROFILE ?LAB: CBC w DIFF ?LAB: ALPHA-FETOPROTEIN,TUMOR MARKER ?LAB: Prothrombin Time INR* ? Value Reference Range ?Prothrombin Time 12.0 11.1-1 3.3 - SEC * ?INTERNATIONAL NORM RATIO 1.0 0.9-1.1 - ?LAB: Liver Fibrosis Pnl* ? Value Reference Range ?Liver Fibrosis Score 0.14 - * ?Liver Fibrosis Stage F0 - * ?Liver Fibrosis Interpretation SEE NOTE - * ?Nec Inflam Act Score 0.07 - * ?Nec Inflam Act Grade A0 - * ?Nec Inflam Act Interpretation SEE NOTE - * ?CEG-Dcjha-9-Macroglobulin 251 106-279 - mg/dL * ?FIB-Haptoglobin 193 43-212 - mg/dL * ?FIB-Apolipoprotein A1 203 A 1 01-198 - mg/dL * ?FIB-Total Bilirubin 0.5 0.2 -1.2 - mg/dL * ?FIB-GGT 20 3-65 - U/L * ?FIB-ALT 22 6-29 - U/L * ?Reference ID [id number] - * ?Footnote SEE NOTE - 4.?Encounter for screening for malignant neoplasm of colon? Notes: Repeat colonoscopy in 03/2027.??5.?Others? Refill PriLOSEC Capsule Delayed Release, 20 MG, 1 capsule, Orally, Once a day, 30 days, 30, [id number];?Continue Ursodiol Capsule, 300 MG, TOME 2 CAPSULAS POR VIA ORAL DOS VECES AL IVELISSE.? * Procedure Codes:?3017F COLOR ECTAL CA SCREEN DOC [id number] TOBACCO [id number] BP SCR NOT PRFRM REC REASON NOS * Preventive Medicine:? ??Counseling:?Care goal follow-up plan:?Above Normal BMI Follow-up?Giving encouragement to exercise,?BMI management provided?Yes.? * Follow Up:?1 Year * * Sign off status: Completed true * Provider:?Kostas Erazo MD Date:? 023 Generated for Joanie castañeda/Bill/Sayraitting on:?11/06/2024 03:05 PM EDT History and Physical Notes * HPI (History of Present Illness) Category Sub-Category Detail Notes Category Not es incontinence I saw Heather in followup today in regard to her history of fatty liver and elevated LFTs. I last saw Heather in March of 2022, at which time she underwent a negative followup screening colonoscopy. She reports that she presently feels well. She remains on ursodiol at 600 mg b.i.d. in regard to her history of fatty liver. She denies any jaundice, pruritus, significant fatigue, increasing abdominal girth, nor abdominal pain. Her most recent labs in March revealed some slight elevations of liver enzymes with an AST of 75 and ALT of 58, but with a normal bilirubin, alkaline phosphatase, and albumin. A CT scan of her abdomen in January described the liver as normal other than some fatty infiltration. She is status-post a previous cholecystectomy and the bile duct was somewhat dilated at 1.5 cm. However, the pancreas was unremarkable. There was no splenomegaly or ascites. As you know, her hemoglobin A1c at that time was also elevated at 8.1 with a fasting blood sugar of 168. She is using Prilosec 2 or 3 times per week with good relief of reflux symptoms. She denies any significant heartburn, dysphagia, anorexia, nausea, nor vomiting. Her bowel movements have been regular and without any signs of bleeding. Examination Category Sub-Category Detail Notes Category Not [...]
--- OUTSIDE RECORDS SUMMARY | 2024-11-06 15:06 | XMS_ITS | Encounter Summary ---
Author Organization [facility] Address [address] [place] [address] Phone Care Team Providers Care Tire Bladder Maker Name Role Phone Yoli Townsend MD Primary Care Provider [phone] Encounter Details Date Type Department Care Team (Late Contact Info) Description 06/10/2023 Documentation Only [facility] [address] [place] [phone] Chester Ventura MD [address] [place] [address] [place] [address] Social History Tobacco Use [...] Visit [facility] [address] [place] [address] Chester Ventura MD [address] [place] [address] documented as of this encounter Visit Diagnoses Not on filedocumented in this encounter Care Teams Tire Bladder Maker Relationship Specialty Start Date End Date Yoli Townsend MD [address] [place], [place] PCP - General 06/09/19 documented as of this encounter
--- OUTSIDE RECORDS SUMMARY | 2024-11-06 15:06 | XMS_ITS | Clinical Summary ---
Author Organization [facility] [place], Address [address] [place] [address] [place] [address] Phone Care Team Providers Care Assembly Riveter Name Role Phone Yoli Townsend MD Primary Care Provider [phone] Allergies Active Allergy Reactions Criticality Noted Date Comments Atorvastatin 11/09/2020 Elevated liver enzymes Ciprofloxacin Nausea,Vomiting 11/09/2020 Duloxetine 11/09/2020 headache Medications ezetimibe (ZETIA) 10 MG tablet Take 1 tablet by mouth 1 (one) time each day Active metFORMIN XR (GLUCOPHAGE-XR ) 750 MG 24 hr tablet Take 1 tablet by mouth 2 (two) times a day 7 Active ursodiol (ACTIGALL) 500 MG tablet Take 2 tablets by mouth 1 (one) time each day 7 Active ferrous sulfate 325 (65 Fe) MG EC tablet TOME MARK ANTHONY TABLETA FARA VECES AL IVELISSE 90 tablet 3 0 Active ergocalciferol (VITAMIN D2) 1.25 MG (13188 UT) capsule TOME 1 CAPSULA POR VIA ORAL ONE TIME PER WEEK 4 capsule 6 0 Active ursodiol (ACTIGALL) 300 MG capsule TOME 2 CAPSULAS POR VIA ORAL DOS VECES AL IVELISSE DOS VECES AL D A 1 Active aspirin (ST XAVI) 81 MG EC tablet Take 1 tablet by mouth 1 (one) time each day Active Vitamin D-[address] 25 MCG (1000 UT) tablet TOME MARK ANTHONY TABLETA POR V A ORAL TODOS LOS D 1 Active cyclobenzaprin e (FLEXERIL) 10 MG tablet Comments: Filled Date: Jan 27 2015 12:00AM Patient Notes: TOME MARK ANTHONY TABLETA POR VIA ORAL FARA VECES AL IVELISSE CUANDO SEA NECESARIO F OR MUSCLE SPASM Duration: 30 4 Active traMADol (ULTRAM) 50 MG tablet TAKE 50 MG POR V A ORAL DOS VECES AL D A NEEDED FOR PAIN 1 Active rosuvastatin (CRESTOR) 10 MG tablet TOME MARK ANTHONY TABLETA POR V A ORAL TODOS LOS D 1 Active omeprazole (PriLOSEC) [address] capsule Comments: Filled Date: Mar 07 2015 12:00AM Patient Notes: TAKE 1 CAPSULE (20MG) BY ORAL ROUTE EVERY DAY BEFORE A MEAL Duration: 30 5 Active Trulicity 3 MG/0.5ML solution pen-injector INJECT 3 MG (0.5 ML) SUBCUTANEOUSLY EVERY WEEK FOR 90 DAYS 3 Active Jardiance 10 MG tablet TOME MARK ANTHONY TABLETA TODOS LOS D 3 Active metFORMIN (GLUCOPHAGE) 500 MG tablet TOME DOS TABLETAS ORALLY 2 TIMES A DAY FOR 90 DAYS 3 Active pyridoxine (VITAMIN B-6) 100 MG tablet TOME MARK ANTHONY TABLETA POR V A ORAL A DIARIO 3 Active ciprofloxacin (Cipro) 500 MG tablet Take 1 tablet (500 mg total) by mouth in the morning and 1 tablet (500 mg total) in the evening. Do all this for 7 days. 14 tablet 4 Active losartan (COZAAR) 25 MG tablet Take 1 tablet (25 mg total) by mouth 1 (one) time each day 90 tablet 3 4 025 Active cyanocobalamin (VITAMIN B-12) 1000 MCG tablet TOME 1 TABLETA POR V A ORAL TODOS LOS D FOR 90 DAYS 4 Active gabapentin (NEURONTIN) 100 MG capsule TOME 1 C PSULA POR V A ORAL TODOS LOS D AL ACOSTARSE 4 Active repaglinide (PRANDIN) 0.5 MG tablet FOR 30 DAYS 1- 2 TABS ORALLY PRIOR TO DINNER DAILY ADMINISTER WITHIN 15 MINUTES OF A MEAL OR SNACK 4 Active Ozempic, 1 MG/DOSE, 4 MG/3ML solution pen-injector INJECT 1 MG (0.75 ML) SUBCUTANEOUSLY EVERY WEEK FOR 30 DAYS 4 Active ciprofloxacin (Cipro) 500 MG tablet Take 1 tablet (500 mg total) by mouth in the morning and 1 tablet (500 mg total) in the evening. Do all this for 7 days. 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 Chronic kidney disease stage 2 09/01/2019 Essential hypertension 09/01/2019 Resolved Problems Problem Noted Date Diagnosed Date Resolved Date Medullary sponge kidney with nephrocalcinosis 09/01/1906/05/2021 Renal stone 09/01/2019 06/05/2021 Family History Medical History Relation Comments Cancer Father Diabetes Father Hypertension Father Diabetes Mother Heart disease Mother MS Hypertension Mother Cancer Sister Relation Status Comments Brother Father Mother Sister Social History Tobacco Use Types Packs/Day Years Used Date Smoking Tobacco: Never Alcohol Use Standard Drinks/Week Comments No 0 (1 standard drink = 0.6 oz pur e alcohol) Comments Unknown Sex and Gender Information Value Date Recorded Sex Assigned at Not on file Legal Sex Female 4:33 PM EST Gender Identity Not on file Sexual Orientation Not on file Last Filed Vital Signs Vital Sign Reading Time Taken Comments Blood Pressure 110/70 09/03/2019 1:41 PM EST Pulse 74 09/03/2019 1:41 PM EST Temperature - - Respiratory Rate 16 09/03/2019 1:41 PM EST Oxygen Saturation - - Inhaled Oxygen Concentration - - Weight 92.5 kg (204 lb) 09/03/2019 1:41 PM EST Height 154.9 cm (5' 1 ) 09/03/2019 1:41 PM EST Body Mass Index 38.55 09/03/2019 1:41 PM EST Plan of Treatment Upcoming Encounters Date Type Department Care Team (Late st Contact Info) Description 12/22/2024 1:30 PM EDT Office Visit [facility] [place], [address] [place] [address] Chester Ventura MD [address] [facility] [address] [address] Health Maintenance Due Date Last Done Comments Breast Cancer Screening 1960 Pneumococcal Vaccine: Pediat rics (0 to 5 Years) and At-Risk Patients (6 to 64 Years) (1 of 2 - PCV) 1966 Colorectal Cancer Screening: Annual FOBT 2009 Colorectal Cancer Screening: Colonoscopy 2009 Colorectal Cancer Screening: Sigmoidoscopy 2009 Diabetes: Hemoglobin A1C 11/10/2020 02/09/2019 Diabetes: Ophthalmology Exam 11/10/2020 Diabetes: Pedal Pulse Checked 11/10/2020 Diabetes: Sensory Foot Exam 11/10/2020 Diabetes: Visual Foot Exam 11/10/2020 Influenza Vaccine (#1) 2024 Hepatitis B Vaccine Aged Out No longe r eligible based on patient's age to complete this topic Procedures Procedure Name Priority Date/Time Associated Diagnosis Comments HEMOGLOBIN A1C Routine 02/09/2019 3:56 PM EDT from Last 3 Months or Most Recently Relevant to Health Maintenance Results * (ABNORMAL) Hemoglobin A1c (02/09/2019 3:56 PM EDT) Hemoglobin A1C 8.1(H) (4-6) % [place] [id number] Comment: HEMOGLOBIN A1C(%) ?? GLUCOSE CONTROL INDEX ?<6% ? EXCELLENT ?6-7% ?VERY GOOD ?7-8% ?GOOD ?8-10% ? FAIR ?>10% ?POOR Hemoglobin (Hb) A1c testing is performed by Lary Roselyn-quant immunoassay. Any cause of shortened erythrocyte survival will reduce exposure of erythrocytes to glucose with a consequent decrease in Hb A1c (%). Testing performed or reported by ~[facility], ~a Service of [facility], ~[address] [place] [address] [place] [address]~ 02/09/2019 3:56 PM EDT us Chester Ventura MD LAB BLOOD ORDERABLES Final Resul t [id number] from Last 3 Months or Most Recently Relevant to Health Maintenance Insurance [facility] Care Teams Assembly Riveter Relationship Specialty Start Date End Date Yoli Townsend MD [address] [place], [place] PCP - General 06/09/19
--- OUTSIDE RECORDS SUMMARY | 2024-11-06 15:06 | XMS_ITS | Encounter Summary ---
Author Organization [facility] Address [address] [place] [address] Phone Care Team Providers Care Motor Vehicle Compliance Analyst Name Role Phone Yoli Townsend MD Primary Care Provider [phone] Encounter Details Date Type Department Care Team (Late st Contact Info) Description 09/27/2023 Documentation Only [facility] [address] [place] [address] Liliya Pérez [address] [place] [address] Social History Tobacco Use Types [...] Visit [facility] [address] [place] [address] Chester Ventura MD [address] [place] [address] [place] [address] documented as of this encounter Visit Diagnoses Not on filedocumented in this encounter Care Teams Motor Vehicle Compliance Analyst Relationship Specialty Start Date End Date Yoli Townsend MD [address] [place], [place] PCP - General 06/09/19 documented as of this encounter
--- OUTSIDE RECORDS SUMMARY | 2024-11-06 15:06 | XMS_ITS | Encounter Summary ---
Author Organization [facility] Address [address] [place] [address] Phone Care Team Providers Care Grocery Checker Name Role Phone Yoli Townsend MD Primary Care Provider [phone] Encounter Details Date Type Department Care Team (Late st Contact Info) Description 10/07/2023 Documentation Only [facility] [address] [place] [address] Liliya Pérez [address] [place] [address] Social History Tobacco Use Types [...] Visit [facility] [address] [place] [address] Chester Ventura MD [address] [place] [address] [place] [address] documented as of this encounter Visit Diagnoses Not on filedocumented in this encounter Care Teams Grocery Checker Relationship Specialty Start Date End Date Yoli Townsend MD [address] [place], [place] PCP - General 06/09/19 documented as of this encounter
--- OUTSIDE RECORDS SUMMARY | 2024-11-06 15:06 | XMS_ITS | Encounter Summary ---
Author Organization [facility] Address [address] [facility] 7t [place] [address] Care Team Providers Care Brim Stretcher Name Role Phone Unavailable Primary Care Provider Unavailabl e Encounter Details Date Type Department Care Team (Latest Contact Info) Description 11/22/[address] [facility] CONVERSIONS Dental, Provider, DDS Social History Tobacco Use Types Packs/Day Years Used Date Smoking Tobacco: Never Assessed Comments Unknown Sex and Gender Information Value Date Recorded Sex Assigned at Female 06/04/2022 10:16 AM EDT Legal Sex Female 10:16 AM EDT Gender Identity Female 06/04/2022 10:16 AM EDT Sexual Orientation Straight 06/04/2022 10 :16 AM EDT documented as of this encounter Plan of Treatment Not on file documented as of this encounter Visit Diagnoses Not on filedocumented in this encounter
--- OUTSIDE RECORDS SUMMARY | 2024-11-06 15:07 | XMS_ITS | Encounter Summary ---
Author Organization [facility] Address [address] [place] [address] Phone Care Team Providers Care Reconditioning Associate Name Role Phone Yoli Townsend MD Primary Care Provider [phone] Encounter Details Date Type Department Care Team (Late st Contact Info) Description 10/08/2023 Documentation Only [facility] [address] [place] [address] Liliya Pérez [address] [place] [address] Social History Tobacco Use Types [...] Visit [facility] [address] [place] [address] Chester Ventura MD [address] [place] [address] [place] [address] documented as of this encounter Visit Diagnoses Not on filedocumented in this encounter Care Teams Reconditioning Associate Relationship Specialty Start Date End Date Yoli Townsend MD [address] [place], [place] PCP - General 06/09/19 documented as of this encounter
--- OUTSIDE RECORDS SUMMARY | 2024-11-06 15:07 | XMS_ITS | Encounter Summary ---
Author Organization [facility] Address [address] [facility] 7t [place] [address] Care Team Providers Care Capacity Planning Analyst Name Role Phone Unavailable Primary Care Provider Unavailabl e Encounter Details Date Type Department Care Team (Latest Contact Info) Description 01/28/2019 Abstract [facility] CONVERSIONS Dental, Provider, DDS Social History Tobacco [...]
--- OUTSIDE RECORDS SUMMARY | 2024-11-06 15:07 | XMS_ITS | Encounter Summary ---
Author Organization [facility] Address [address] [place] [address] Phone Care Team Providers Care Family Psychologist Name Role Phone Yoli Townsend MD Primary Care Provider Encounter Details Date Type Department Care Team (Late Contact Info) Description 02/21/2022 Documentation Only [facility] [address] [place] [address] Chester Ventura MD [address] [place] [address] [place] [address] Social History Tobacco Use Types [...] Visit [facility] [address] [place] [address] Chester Ventura MD [address] [place] [address] [place] [address] documented as of this encounter Visit Diagnoses Not on filedocumented in this encounter Care Teams Family Psychologist Relationship Specialty Start Date End Date Yoli Townsend MD [address] [place], [place] PCP - General 06/09/19 documented as of this encounter
== END 2024-11-06 14:12 | disposition home or self-care (01) ==
LOC: HO.HMCH 13:12
PROVIDERS: PCP Internal Medicine; Visit Provider Physician Assistant Medical
DX: R10.9 Unspecified abdominal pain (principal)

== ENCOUNTER 2024-11-13 09:39 | Outpatient (AMB) | payer OTHER, SELFPAY ==
--- NOTE | 2024-11-13 09:48 | A.OFFPC_ITS ---
Vital Signs 11/13/24 09:50 Height 5 ft 1 in Weight 190 lb 6 oz BMI 36.0 BP 132/74 Blood Pressure Location Lt brachial Position Sitting Pulse 77 Pulse Source Pulse Oximeter Temp 96.9 F Temp Source Temporal Artery Scan Pulse Oximetry (%) 97 Oxygen Delivery Method Room Air Intake Visit Reasons: 1 week follow up Oracle Solutions Architect Required: Yes Oracle Solutions Architect Language: Portuguese Information Interpreted: non-clinical & clinical Orthotic/Prosthetic Clinician: Not Required per policy Accompanied by: Self / Same As Patient Allergies atorvastatin Allergy (Intermediate, Verified 11/13/24 10:27) elevated liver enzymes, elevated enzymes duloxetine [Cymbalta] Allergy (Intermediate, Verified 11/13/24 10:27) headache dapagliflozin [From [facility]] Adverse Reaction (Intermediate, Verified 11/13/24 10:27) Dizziness Medication List - Last Reconciled 11/13/24 by Sheila Todd PA-C alclometasone 0.05% appl topical BID PRN azelastine-fluticasone 137-50 mcg/spray 1 spray intranasal BID blood sugar diagnostic (FreeStyle Lite Strips) 3 times a day blood-glucose meter (FreeStyle Lite Meter kit) As directed 3x/day calcium carbonate 500 mg PO BID 30 days cholecalciferol (vitamin D3) 25 mcg PO DAILY ciprofloxacin HCl 250 mg PO BID 10 days diclofenac sodium 1% 2 grams topical BID PRN empagliflozin (Jardiance) 25 mg PO DAILY 90 days evolocumab (Repatha Pushtronex) 420 mg (3.5 mL) subcut Q4W 90 days evolocumab (Repatha SureClick) 140 mg subcut Q2W 90 days ezetimibe 10 mg PO DAILY 90 days gabapentin 100 mg PO BEDTIME 30 days losartan 25 mg PO DAILY 90 days mecobalamin (vitamin B12) 1,000 mcg PO DAILY 90 days metformin 1,000 mg (2 x 500 mg) PO BID 90 days omeprazole 20 mg PO QAM PRN 90 days pyridoxine (vitamin B6) 100 mg PO DAILY 90 days repaglinide 1- 2 tabs prior to dinner PO daily; administer within 15 minutes of a meal or snack 30 days rosuvastatin 40 mg PO DAILY semaglutide (Ozempic) 2 mg (0.75 mL) subcut QWEEK 4 weeks tamsulosin (Flomax) 0.4 mg PO DAILY tizanidine 2 mg PO Q8H PRN 30 days tramadol 50 mg PO BID PRN 30 days tramadol 50 mg PO BID PRN ursodiol 300 mg PO BID Tobacco use date assessed: 11/13/24 Fall risk assessment: No Falls in past year Last assessed Fall Risk: 11/13/24 Dental Screening Dental Screen Date: 11/06/24 HPI 1 week follow up HPI Details History of Present Illness The patient is a 64-year-old female presenting with left flank/abdominal pain. She describes the pain as originating from her mid belly and pelvis area towards the left side, noting the pain has decreased in severity since its onset but remains present. Examination of the potential cause of this pain has included pending CT imaging of the abdomen and pelvis, for which an insurance authorization has been approved today patient received a message on her voice. The patient was reassured that further contact would be established once her imaging has been scheduled. Rheumatoid arthritis is a known condition for this patient, with no acute flares reported at this visit. Hypercholesterolemia is managed with rosuvastatin, which the patient takes bi- monthly. She has been experiencing difficulties in obtaining refills, which were addressed during the visit. The patient also takes vitamin B6 to assist with liver function, as per past medical considerations. She is requesting a refill on this medication as well. Laboratory results show a mild elevation in the white blood cell count, suggesting further surveillance. Other results including renal function and electrolyte levels show no significant abnormalities, and are normal. [facility] Medical History History of kidney stones Abdominal pain Tachycardia Renal cyst Chronic GERD Polyarthralgia Left shoulder pain Right foot pain Renal calculus, bilateral Mild major depression, single episode Morbid obesity with BMI of 40.0-44.9, adult Diabetes type 2, uncontrolled Iron deficiency anemia Osteopenia Left foot pain Postmenopausal Vitamin D deficiency Elevated LFTs Thyroid nodule Type 2 diabetes mellitus with other diabetic kidney complication Proteinuria Hyperlipidemia LDL goal <100 Obesity due to excess calories Essential hypertension Pure hypercholesterolemia Venous thrombosis of upper extremity Diabetes mellitus, type II Spondylosis, cervical Fatty liver Metatarsalgia Arthropathy of knee Surgical History H/O colonoscopy History of extraction of renal calculus History of removal of cyst History of shoulder surgery History of cholecystectomy History of total abdominal hysterectomy and bilateral salpingo-oophorectomy Status post rotator cuff repair Family History Father Stomach cancer Liver cancer Mother Myocardial infarct Diabetes CVD (cardiovascular disease) Sister Cervical cancer Brother Murder Social History Household Members: Children Housing: House Alcohol intake: never Patient Tobacco Use Status: Never used Tobacco e-Cigarette/Vaping Use: Never Used Second Hand Smoke Exposure: No service: No Current occupational status: disabled Current occupation: right handed Cognitive needs: Yes (Pt use a cane) Hearing needs: No Vision needs: No Questionnaire PHQ-9 Over the last 2 weeks, how often have you been bothered by any of the following problems? 1. Little interest or pleasure in doing things: not at all 2. Feeling down, depressed, or hopeless: not at all 3. Trouble falling or staying asleep, or sleeping too much: not at all 4. Feeling tired or having little energy: not at all 5. Poor appetite or overeating: not at all 6. Feeling bad about yourself - or that you are a failure or have let yourself or your family down: not at all 7. Trouble concentrating on things, such as reading the newspaper or watching television: not at all 8. Moving or speaking so slowly that other people could have noticed. Or the opposite - being so fidgety or restless that you have been moving around a lot more than usual: not at all 9. Thoughts that you would be better off or of hurting yourself in some way: not at all Total score: 0 Depression Screening Interpretation: Negative Depression Screening Done: Yes 71386 - PHQ-9 Billing: Yes Source: Developed by Drs. Kostas Simeon, Mary Smith, Lb Barrett and colleagues, with an educational rachael from [employer]. Thrive Questionnaire Date Thrive assessed: 11/06/24 HENRIETTA-7 AMB Questionnaire HENRIETTA-7 Date HENRIETTA - 7 assessed: 11/13/24 Feeling nervous, anxious, or on edge: 0 = Not at all Not being able to stop or control worryin = Not at all Worrying too much about different things: 0 = Not at all Trouble relaxin = Not at all Being so restless that it is hard to sit still: 0 = Not at all Becoming easily annoyed or irritable: 0 = Not at all Feeling afraid as if something awful might happen: 0 = Not at all Total HENRIETTA-7 score (0-4 normal; 5-9 mild; 10-14 moderate; 15-21 severe): 0 Source: Developed by Drs. Kostas Simeon, Mary Smith, Lb Barrett and colleagues, with an educational rachael from [employer]. HENRIETTA-7 Assessment Billing HENRIETTA-7 Assessment Tool: HENRIETTA-7 Assessment 57189 Physical exam (Primary Care) Vital Signs: Last Vital Signs Temp 96.9 F 11/13/24 09:50 Pulse 77 11/13/24 09:50 BP 132/74 11/13/24 09:50 Pulse Ox 97 11/13/24 09:50 Oxygen Delivery Method Room Air 11/13/24 09:50 Care Plan Goal for BP management: <130/90 at Goal BMI result Body Mass Index 36.0 BMI Assessment/Plan discussion: High BMI High, discussed plan: lifestyle, weight reduction, dietary, physical activity and alcohol moderation Tobacco/Smoking Status: Tobacco use Status Tobacco use date assessed 11/13/24 11/13/24 09:59 Patient Tobacco Use Status Never used Tobacco 11/13/24 09:49 e-Cigarette/Vaping Use Never Used 11/13/24 09:49 PHQ-9: PHQ-9 Score PHQ-9: Total score 0 11/13/24 10:18 Depression Screening Interpretation: Negative Thrive Assessment: Date of Thrive Assessment Date Thrive assessed 11/06/24 11/13/24 09:49 Const Other: Review of Systems - Gastrointestinal: Reports abdominal pain, denies acute gastrointestinal distress. - Musculoskeletal: Reports history of rheumatoid arthritis, no current flare- ups. - General: Denies any current symptoms associated with hypercholesterolemia. Physical Exam Appearance: Alert. Oriented X3. No acute distress. Head: Normal external exam. Normocephalic. Atraumatic. Eyes: Pupils are equal, round, and reactive to light. Extraocular movements intact. Conjunctiva and sclera normal. Eyelids normal. Throat: Pharynx normal. Uvula midline. Moist mucous membranes. Neck: Normal inspection. Neck supple. Full range of motion. Cardiovascular: Normal heart rate and rhythm. Respiratory: No respiratory distress. Painless inspiration. Abdomen: Soft and nontender. Back: No costovertebral angle tenderness. Full range of motion noted. Skin: Skin warm and dry. Normal skin color. Normal skin turgor. No rashes/lesions/lacerations noted. Extremities: Extremities exhibit normal range of motion. Neuro: Oriented X 3. Results Reviewed Results Reviewed: Results - Labs: Elevated white blood cell count noted; electrolytes and renal function tests returned within normal limits. - Imaging: Pending abdominal and pelvic tomography for further evaluation. Coding Level of Care Code Est Pt Level 3 (27711) Complex EM visit Add On G2211 Diagnoses History of kidney stones Z87.442 Abdominal pain R10.9 Additional Codes PHQ-9 - 48524 - PHQ-9 Billing: Yes ([id number]) HENRIETTA-7 Assessment Billing - HENRIETTA-7 Assessment Tool: HENRIETTA-7 Assessment 21563 ([id number]) Assessment & Plan Assessment & Plan (1) History of kidney stones: Code(s): Z87.442 - Personal history of urinary calculi Category: Medical Plan: Patient will be referred to new urologist as patient reports she did not agree with their care of her last 2 urologist and does not want to go back to them at this time. Condition is chronic and stable continue to monitor. (2) Abdominal pain: Code(s): R10.9 - Unspecified abdominal pain Category: Medical Plan: Abdominal CT is scheduled to determine the underlying cause of the abdominal discomfort. Her laboratory findings indicated a mild increase in white blood cell count, requiring further observation. The patient is instructed to monitor symptoms and seek prompt evaluation if the condition worsens. Condition is stable at this time will continue to monitor. Plan Plan Patient was informed and verbally consented to the use of an ambient scribe for clinic note documentation during this visit. 1. Rheumatoid Arthritis No change in treatment plan as there are no current exacerbations of her rheumatoid arthritis. The management remains stable and will continue as previously prescribed. She is encouraged to maintain regular communications with her healthcare provider to monitor the condition. 2. Hypercholesterolemia Managed by ensuring proper refilling of rosuvastatin and adherence to the medication regimen. Continued importance stressed on maintaining cholesterol levels through vigilant medication management. 3. Abdominal Pain Abdominal CT is scheduled to determine the underlying cause of the abdominal di scomfort. Her laboratory findings indicated a mild increase in white blood cell count, requiring further observation. The patient is instructed to monitor symptoms and seek prompt evaluation if the condition worsens. Discussion Notes I discussed the available diagnostic steps, particularly the upcoming CT, to investigate the source of abdominal pain. I informed the patient about the implications of her laboratory findings, explaining the importance of monitoring the elevated white blood cell count as part of ongoing management. Refills for her cholesterol medication were arranged, and the necessity of strict adherence to treatment regimens was emphasized. I also reviewed follow-up considerations, including when to seek further medical attention if symptoms should intensify, ensuring she was aware of her ongoing health management requirements. Orders: Referrals Urology Referral R10.9 - Unspecified abdominal pain, Z87.442 - Personal history of urinary calculi Medications: Refilled rosuvastatin 40 mg PO DAILY 90 tabs 0RF evolocumab (Repatha Pushtronex) 420 mg (3.5 mL) subcut Q4W 14 mL 3RF 90 days E78.49 - Other hyperlipidemia evolocumab (Repatha SureClick) 140 mg subcut Q2W 7 mL 3RF 90 days E78.49 - Other hyperlipidemia pyridoxine (vitamin B6) 100 mg PO DAILY 90 tabs 2RF 90 days M79.671 - Pain in right foot, M79.672 - Pain in left foot Patient Instructions: Patient Instructions - Follow up promptly with the imaging department to confirm and complete the abdominal tomography. - Monitor for any increase or changes in abdominal discomfort and report them immediately. - Ensure timely refills of medications, especially Robustan, and adhere to prescribed dosages. - Maintain regular check-ups for rheumatoid arthritis and report any changes in symptoms.
[2024-11-13 09:50] VITALS: BP 132/74; PULSE 77; TEMP 36.1; O2SAT 97; BMI 36.0
--- OUTSIDE RECORDS SUMMARY | 2024-11-13 10:09 | XMS_ITS | Clinical Summary ---
Author Organization [facility] [place], Address [address] [place] [address] [place] [address] Phone Care Team Providers Care Sales And Catering Coordinator Name Role Phone Yoli Townsend MD Primary Care Provider [phone] Allergies Active Allergy Reactions Criticality Noted Date [...] 0 Active ergocalciferol (VITAMIN D2) 1.25 MG (92060 UT) capsule TOME 1 CAPSULA POR VIA [...] Hypertension Father Diabetes Mother Heart disease Mother [place] Hypertension Mother Cancer Sister Relation Status Comments [...] Visit [facility] [place], [address] [place] [address] Chester Ventura MD [address] [facility] [address] [place] [address] Health Maintenance Due Date Last Done Comments Breast Cancer Screening 1960 Pneumococcal Vaccine: Peds ( 0 to 5 Years) and At-Risk Patients (6 to 49 Years) (1 of 2 - PCV) 1966 Colorectal Cancer Screening: Annual FOBT 2009 Colorectal Cancer Screening: Colonoscopy 2009 Colorectal Cancer Screening: Sigmoidoscopy 2009 Diabetes: Hemoglobin A1C 11/10/2020 02/09/2019 Diabetes: Ophthalmology Exam 11/10/2020 Diabetes: Pedal Pulse Checked 11/10/2020 Diabetes: Sensory Foot Exam 11/10/2020 Diabetes: Visual Foot Exam 11/10/2020 Influenza Vaccine (Season Ended) 2025 Hepatitis B Vaccine Aged Out No longe r eligible based on patient's age to complete this topic Procedures Procedure Name Priority Date/Time Associated Diagnosis Comments HEMOGLOBIN A1C Routine 02/09/2019 3:56 PM EDT from Last 3 Months or Most Recently Relevant to Health Maintenance Results * (ABNORMAL) Hemoglobin A1c (02/09/2019 3:56 PM EDT) Hemoglobin A1C 8.1(H) (4-6) % [place] [address] Comment: HEMOGLOBIN A1C(%) ?? GLUCOSE CONTROL INDEX ?<6% ? EXCELLENT ?6-7% ?VERY GOOD ?7-8% ?GOOD ?8-10% ? FAIR ?>10% ?POOR Hemoglobin (Hb) A1c testing is performed by Layr Roselyn-quant immunoassay. Any cause of shortened erythrocyte survival will reduce exposure of erythrocytes to glucose with a consequent decrease in Hb A1c (%). Testing performed or reported by ~[facility], ~a Service of [facility], ~[address] [place] [address]~ 02/09/2019 3:56 PM EDT us Chester Ventura MD LAB BLOOD ORDERABLES Final Resul t [id number] from Last 3 Months or Most Recently Relevant to Health Maintenance Insurance [facility] [employer] Care Teams Sales And Catering Coordinator Relationship Specialty Start Date End Date Yoli Townsend MD [address] [place], [place] PCP - General 06/09/19
--- OUTSIDE RECORDS SUMMARY | 2024-11-13 10:09 | XMS_ITS | Encounter Summary ---
Author Organization [facility] Address [address] [place] [address] Phone Care Team Providers Care Mass Communications Professor Name Role Phone Yoli Townsend MD Primary Care Provider [phone] Encounter Details Date Type Department Care Team (Late Contact Info) Description 06/12/2023 Documentation Only [facility] [address] [place] [address] Chester Ventura MD [address] [place] [address] [place] [address] Social History Tobacco Use Types [...] Visit [facility] [address] [place] [place] [address] Chester Ventura MD [address] [place] [address] [place] [address] documented as of this encounter Visit Diagnoses Not on filedocumented in this encounter Care Teams Mass Communications Professor Relationship Specialty Start Date End Date Yoli Townsend MD [address] [place], [place] PCP - General 06/09/19 documented as of this encounter
--- OUTSIDE RECORDS SUMMARY | 2024-11-13 10:09 | XMS_ITS | Encounter Summary ---
Author Organization [facility] Address [address] [place] [address] Phone Care Team Providers Care Animal Science Instructor Name Role Phone Yoli Townsend MD Primary Care Provider [phone] Encounter Details Date Type Department Care Team (Late Contact Info) Description 06/10/2023 Documentation Only [facility] Dr [address] [place] [address] Chester Ventura MD [address] [place] [address] [place] [address] Social History Tobacco Use Types [...] Visit [facility] [address] [facility] [place] [address] Chester Ventura MD [address] [facility] [place] [address] documented as of this encounter Visit Diagnoses Not on filedocumented in this encounter Care Teams Animal Science Instructor Relationship Specialty Start Date End Date Yoli Townsend MD [address] [place], [place] PCP - General 06/09/19 documented as of this encounter
--- OUTSIDE RECORDS SUMMARY | 2024-11-13 10:09 | XMS_ITS | Encounter Summary ---
Author Organization [facility] Address [address] [place] [address] Phone Care Team Providers Care Math And Science Instructor Name Role Phone Yoli Townsend MD Primary Care Provider [phone] Encounter Details Date Type Department Care Team (Late Contact Info) Description 11/30/2022 Documentation Only [facility] Dr [address] [place] [address] Chester Ventura MD [address] [place] [address] [place] [address] Social History Tobacco Use Types [...] Visit [facility] [address] [place] [place] [address] Chester Ventura MD [address] [facility] [place] [address] documented as of this encounter Visit Diagnoses Not on filedocumented in this encounter Care Teams Math And Science Instructor Relationship Specialty Start Date End Date Yoli Townsend MD [address] [place], [place] PCP - General 06/09/19 documented as of this encounter
--- OUTSIDE RECORDS SUMMARY | 2024-11-13 10:09 | XMS_ITS | Encounter Summary ---
Author Organization [facility] Address [address] [place] [address] Phone Care Team Providers Care Director Business Development Name Role Phone Yoli Townsend MD Primary Care Provider [phone] Encounter Details Date Type Department Care Team (Late Contact Info) Description 12/04/2022 Documentation Only [facility] [address] [place] [address] Chester Ventura MD [address] [place] [address] [place] [address] Social History Tobacco Use Types [...] [facility] [address] [place] [place] [address] Chester Ventura MD [address] [place] [address] [place] [address] documented as of this encounter Visit Diagnoses Not on filedocumented in this encounter Care Teams Director Business Development Relationship Specialty Start Date End Date Yoli Townsend MD [address] [place], [place] PCP - General 06/09/19 documented as of this encounter
--- OUTSIDE RECORDS SUMMARY | 2024-11-13 10:09 | XMS_ITS | Encounter Summary ---
Author Organization [facility] Address [address] [place] [address] Phone Care Team Providers Care Emergency Department Nurse Name Role Phone Yoli Townsend MD Primary Care Provider [phone] Encounter Details Date Type Department Care Team (Late Contact Info) Description 06/06/2022 Documentation Only [facility] [address] [place] [address] Chester Ventura MD [address] [place] [address] [place] [address] Social History Tobacco Use Types [...] Visit [facility] [address] [place] [address] Chester Ventura MD [address] [place] [address] [place] [address] documented as of this encounter Visit Diagnoses Not on filedocumented in this encounter Care Teams Emergency Department Nurse Relationship Specialty Start Date End Date Yoli Townsend MD [address] [place], [place] PCP - General 06/09/19 documented as of this encounter
--- OUTSIDE RECORDS SUMMARY | 2024-11-13 10:09 | XMS_ITS ---
Author Organization [facility] Address [address] [place] [address] Care Team Providers Care Brineyard Supervisor Name Role Phone Yoli Townsend Primary Care Provider Kostas Hinson Unavailable [phone] Allergies No Known Allergies Results Component Value Reference Range Notes Prothrombin Time INR Reviewed date:05/31/2023 12:32:48 AM Interpretation: Performing Lab:[facility], [address] [place] [id number] Notes/Report: Prothrombin Time 12.0 11.1-13.3 [employer] [...] Pnl Reviewed date:06/05/2023 06:22:40 PM Interpretation: Performing Lab:[facility], [address] [place] [phone] Notes/Report: Liver Fibrosis Score 0.14 Liver Fibrosis [...] a>0.62 and a<=1.00 : A3 (severe activity) RFJ-Jypqy-1-Macroglobulin 251 106-279 mg/dL FIB-Haptoglobin 193 43-212 mg/dL FIB-Apolipoprotein A1 203 101-198 mg/dL FIB-Total Bilirubin 0.5 0.2-1.2 mg/dL FIB-GGT 20 3-65 U/L FIB-ALT 22 6-29 U/L Reference ID [id number] Footnote SEE NOTE The reliability of results is dependent on compliance with the preanalytical and analytical conditions recommended by [employer]. The tests have to be deferred for: [...] The performance characteristics have been determined by [employer] [facility]. It has not been cleared or approved by the U.S. Food and Drug Administration. Performance characteristics refer to the analytical performance of the test. [employer], [employer], the associated logo, [employer] and all associated [employer] wild are the registered trademarks of [employer]. All third green party wild - (R) and (TM) - are the property of their respective owners. (C) 8688-6777 [employer]. All rights reserved. THIS TEST WAS PERFORMED AT: [email or web address] [facility] [address] [place] [address] GWENDOLYN SAENZ MD,PHD,ZAIRA REASON FOR VISIT Patient [...] IVELISSE Orally BID Active Pioglitazone HCl Act yocasat Losartan Potassium A ctive Trulicity 0.75 MG/0.5ML as directed Subc utaneous as directed Active Vital Signs Temperature 96.8 degrees Fahrenheit 05/29/20 23 Blood pressure systolic 000 mm Hg 05/29/20 23 Blood pressure diastolic 00 mm Hg 023 Height 61 in 05/29/2023 Weight 197 lb 4 oz lbs 05/29/2023 BMI 37.27 kg/m2 05/29/2023 Encounters Encounter Location Date Provider Diagnosis [facility] [address] [place] [address] 05/29/2023 Kostas Erazo Fatty liver K76.0 ; [...] Provider Name:Kostas Erazo , 05/27/2025 11:00:00 AM, [address] [place] [address], [address], [place], [address], Progress Notes * HEATHER COMBS EDOB: (63 yo F)Acc No.[id number]:05/29/2023 Progress Notes Patient:?HEATHER COMBS E Provider:?Kostas Erazo MD :1960???Age:63 Y???Sex:Female D ate:05/29/2023 Address:[facility] [address] [place], [place] Pcp:Yoli Padilla Subjective: * Chief Complaints: * [...] Inflam Act Interpretation SEE NOTE - * ?HHN-Luvew-0-Macroglobulin 251 106-279 - mg/dL * ?FIB-Haptoglobin 193 43-212 - mg/dL * ?FIB-Apolipoprotein A1 203 A 1 01-198 - mg/dL * ?FIB-Total Bilirubin 0.5 0.2 -1.2 - mg/dL * ?FIB-GGT 20 3-65 - U/L * ?FIB-ALT 22 6-29 - U/L * ?Reference ID [id number] - * ?Footnote SEE NOTE - 2.?Elevated [...] Inflam Act Interpretation SEE NOTE - * ?JYC-Fvsvd-0-Macroglobulin 251 106-279 - mg/dL * ?FIB-Haptoglobin 193 43-212 - mg/dL * ?FIB-Apolipoprotein A1 203 A 1 01-198 - mg/dL * ?FIB-Total Bilirubin 0.5 0.2 -1.2 - mg/dL * ?FIB-GGT 20 3-65 - U/L * ?FIB-ALT 22 6-29 - U/L * ?Reference ID [id number] - * ?Footnote SEE NOTE - 3.?Liver [...] Inflam Act Interpretation SEE NOTE - * ?QRO-Jrnku-6-Macroglobulin 251 106-279 - mg/dL * ?FIB-Haptoglobin 193 43-212 - mg/dL * ?FIB-Apolipoprotein A1 203 A 1 01-198 - mg/dL * ?FIB-Total Bilirubin 0.5 0.2 -1.2 - mg/dL * ?FIB-GGT 20 3-65 - U/L * ?FIB-ALT 22 6-29 - U/L * ?Reference ID [id number] - * ?Footnote SEE NOTE - 4.?Encounter for screening for malignant neoplasm of colon? Notes: Repeat colonoscopy in 03/2027.??5.?Others? Refill PriLOSEC Capsule Delayed Release, 20 MG, 1 capsule, Orally, Once a day, 30 days, 30, Ineggmu58;?Continue Ursodiol Capsule, 300 MG, TOME 2 CAPSULAS POR VIA ORAL DOS VECES AL IVELISSE.? * Procedure Codes:?3017F COLOR ECTAL CA SCREEN DOC [id number] TOBACCO [id number] BP SCR NOT PRFRM REC REASON NOS * Preventive Medicine:? ??Counseling:?Care goal follow-up plan:?Above Normal BMI Follow-up?Giving encouragement to exercise,?BMI management provided?Yes.? * Follow Up:?1 Year * * Sign off status: Completed true * Provider:?Kostas Erazo MD Date:? 023 Generated for Joanie castañeda/Bill/Sayraitting on:?11/13/2024 10:09 AM EDT History and Physical Notes * HPI [...]
--- OUTSIDE RECORDS SUMMARY | 2024-11-13 10:09 | XMS_ITS | Encounter Summary ---
Author Organization [facility] Address [address] [place] [address] Phone Care Team Providers Care Nitrating Acid Mixer Name Role Phone Yoli Townsend MD Primary Care Provider [phone] Encounter Details Date Type Department Care Team (Late Contact Info) Description 06/18/2022 Documentation Only [facility] [address] [place] [address] Chester Ventura MD [address] [place] [address] [place] [address] Social History Tobacco Use Types [...] [facility] [address] [place] [address] Chester Ventura MD [address] [place] [address] [place] [address] documented as of this encounter Visit Diagnoses Not on filedocumented in this encounter Care Teams Nitrating Acid Mixer Relationship Specialty Start Date End Date Yoli Townsend MD [address] [place], [place] PCP - General 06/09/19 documented as of this encounter
--- OUTSIDE RECORDS SUMMARY | 2024-11-13 10:09 | XMS_ITS | Encounter Summary ---
Author Organization [facility] Address [address] [place] [address] Phone Care Team Providers Care Surveillance Technician Name Role Phone Yoli Townsend MD Primary Care Provider [phone] Encounter Details Date Type Department Care Team (Late Contact Info) Description 12/04/2022 Documentation Only [facility] [address] [place] [address] Chester Ventura MD [address] [place] [address] [place] [address] Social History Tobacco Use Types [...] Visit [facility] [address] [place] [address] Chester Ventura MD [address] [place] [address] [place] [address] documented as of this encounter Visit Diagnoses Not on filedocumented in this encounter Care Teams Surveillance Technician Relationship Specialty Start Date End Date Yoli Townsend MD [address] [place], [place] PCP - General 06/09/19 documented as of this encounter
--- OUTSIDE RECORDS SUMMARY | 2024-11-13 10:09 | XMS_ITS | Encounter Summary ---
Author Organization [facility] Address [address] [place] [address] Phone Care Team Providers Care Stummel Selector Name Role Phone Yoli Townsend MD Primary Care Provider [phone] Encounter Details Date Type Department Care Team (Late Contact Info) Description 06/01/2022 Documentation Only [facility] [address] [place] [address] Chester Ventura MD [address] [place] [address] [place] [address] Social History Tobacco Use Types [...] Visit [facility] [address] [place] [address] Chester Ventura MD [address] [place] [address] [place] [address] documented as of this encounter Visit Diagnoses Not on filedocumented in this encounter Care Teams Stummel Selector Relationship Specialty Start Date End Date Yoli Townsend MD [address] [place], [place] PCP - General 06/09/19 documented as of this encounter
--- OUTSIDE RECORDS SUMMARY | 2024-11-13 10:10 | XMS_ITS | Encounter Summary ---
Author Organization [facility], Address [address] [place] [address] Phone Care Team Providers Care Automatic Coil Machine Operator Name Role Phone Yoli Townsend MD Primary Care Provider [phone] Reason for Visit * Reason Comments Med Refill Encounter Details Date Type Department Care Team (Late Contact Info) Description 02/17/2020 Refill [facility] [address] [place] [address] Chester Ventura MD [address] [facility] [place] [address] Social History Tobacco Use Types [...] Visit [facility] [place], [address] [facility] [place] [address] Chester Ventura MD [address] [facility] [place] [address] documented as of this encounter Visit Diagnoses Not on filedocumented in this encounter Care Teams Automatic Coil Machine Operator Relationship Specialty Start Date End Date Yoli Townsend MD [address] [place] PCP - General 06/09/19 documented as of this encounter
--- OUTSIDE RECORDS SUMMARY | 2024-11-13 10:10 | XMS_ITS | Encounter Summary ---
Author Organization [facility] Address [address] [place] [address] Phone Care Team Providers Care Air Battle Manager Name Role Phone Yoli Townsend MD Primary Care Provider [phone] Encounter Details Date Type Department Care Team (Late st Contact Info) Description 09/27/2023 Documentation Only [facility] [address] [place] [address] Liliya Pérez [address] [place] [address] Social History Tobacco Use Types [...] [facility] [address] [place] [address] Chester Ventura MD [address] [place] [address] [place] [address] documented as of this encounter Visit Diagnoses Not on filedocumented in this encounter Care Teams Air Battle Manager Relationship Specialty Start Date End Date Yoli Townsend MD [address] [place], [place] PCP - General 06/09/19 documented as of this encounter
--- OUTSIDE RECORDS SUMMARY | 2024-11-13 10:10 | XMS_ITS ---
Author Organization [facility] Address [address] [place] [address] Care Team Providers Care Parakeet Raiser Name Role Phone Yoli Townsend Primary Care Provider UnavailKostas Love Unavailable [phone] Allergies No Known Allergies REASON FOR VISIT [...] 05/28/2024 Encounters Encounter Location Date Provider Diagnosis [facility] [address] [place] [address] 05/28/2024 Kostas Erazo Fatty liver K76.0 ; [...] Provider Name:Kostas Erazo , 05/27/2025 11:00:00 AM, [address] [place] [address], Suite [facility], [place], [address], Progress Notes * HEATHER COMBS EDOB: (64 yo F)Acc No.[id number]:05/28/2024 Progress Notes Patient:?HEATHER COMBS Provider:?Kostas Erazo MD :1960???Age:64 Y???Sex:Female D ate:05/28/2024 Address:[address], [place] Pcp:Yoli Padilla Subjective: * Chief Complaints: * [...] VIA ORAL DOS VECES AL IVELISSE Taking Repatha Pushtronex System 420 MG/3.5ML Solution [...] elastography* sched for 06/11/24 at 8:00 am [facility] ultrasound dept 2nd floor nothig to eat or drink 8hrs prior * 3.?Liver fibrosis?LAB: LIVER PROFILE ?LAB: CBC w DIFF ?LAB: ALPHA-FETOPROTEIN,TUMOR MARKER ?LAB: Prothrombin Time INR ?LAB: Liver Fibrosis Pnl ?Imaging: US abdomen comp w elastography* sched for 06/11/24 at 8:00 am [facility] ultrasound dept 2nd floor nothig to eat or drink 8hrs prior * 4.?Others? Refill PriLOSEC Capsule Delayed Release, 20 MG, 1 capsule, Orally, Once a day, 30 days, 30, Edlifzz60;?Refill Ursodiol Capsule, 300 MG, tome 2 capsulas por via oral dos veces al ivelisse, Orally, Twice a day, 30 days, 120, Refills 11.?? * Procedure Codes:?3017F COLOR ECTAL CA SCREEN DOC [id number] TOBACCO [id number] BP SCR NOT PRFRM REC REASON NOS * Preventive Medicine:? ??Counseling:?Care goal follow-up plan:?Above Normal BMI Follow-up?Giving encouragement to exercise,?BMI management provided?Yes.? * Follow Up:?1 Year * * Sign off status: Completed true * Provider:?Kostas Erazo MD Date:? 024 Generated for Joanie castañeda/Bill/Ginette on:?11/13/2024 10:10 AM EDT History and Physical Notes * [...]
--- OUTSIDE RECORDS SUMMARY | 2024-11-13 10:10 | XMS_ITS ---
Author Organization [facility] Address [address] [place] [address] Care Team Providers Care Label Printing Machinist Name Role Phone Yoli Townsend Primary Care Provider Unavailab Kostas Murguia [phone] REASON FOR VISIT elevated lft's Encounters Encounter Location Date Provider Diagnosis [facility] [address] [place] [address] 08/13/2023 Kostas Erazo Plan Of Treatment Next Appt Details Provider Name:Kostas Erazo , 05/27/2025 11:00:00 AM, [address], [address], [place], [address], Progress Notes * HEATHER COMBS EDOB: (64 yo F)Acc No.[id number]:08/13/2023 Progress Notes Patient:?VICKIHEATHER GODDARD E Provider:?Kostas Erazo MD :1960???Age:63 Y???Sex:Female D ate:08/13/2023 Address:[address] [place] [address] [id number] Pcp:Yoli Padilla Subjective: * Chief Complaints: * [...] Erazo MD Date:? 024 Generated for Joanie castañdea/Bill/Sayraitting on:?11/13/2024 10:10 AM EDT
--- OUTSIDE RECORDS SUMMARY | 2024-11-13 10:10 | XMS_ITS | Encounter Summary ---
Author Organization [facility] Address [address] [place] [address] Phone Care Team Providers Care Metal Grader Name Role Phone Yoli Townsend MD Primary Care Provider [phone] Encounter Details Date Type Department Care Team (Late st Contact Info) Description 10/07/2023 Documentation Only [facility] [address] [place] [address] Liliya Pérez [address] [place] [address] Social History Tobacco Use Types [...] Visit [facility] [address] [place] [address] Chester Ventura MD [address] [place] [address] [place] [address] documented as of this encounter Visit Diagnoses Not on filedocumented in this encounter Care Teams Metal Grader Relationship Specialty Start Date End Date Yoli Townsend MD [address] [place], [place] PCP - General 06/09/19 documented as of this encounter
--- OUTSIDE RECORDS SUMMARY | 2024-11-13 10:10 | XMS_ITS | Encounter Summary ---
Author Organization [facility] Address [address] [place] [address] Phone Care Team Providers Care Gear Lapper Name Role Phone Yoli Townsend MD Primary Care Provider [phone] Encounter Details Date Type Department Care Team (Late Contact Info) Description 02/21/2022 Documentation Only [facility] [address] [place] [address] Chester Ventura MD [address] [place] [address] [place] [address] Social History Tobacco Use Types [...] Visit [facility] [address] [place] [address] Chester Ventura MD [address] [place] [address] [place] [address] documented as of this encounter Visit Diagnoses Not on filedocumented in this encounter Care Teams Gear Lapper Relationship Specialty Start Date End Date Yoli Townsend MD [address] [place], [place] PCP - General 06/09/19 documented as of this encounter
--- OUTSIDE RECORDS SUMMARY | 2024-11-13 10:10 | XMS_ITS | Encounter Summary ---
Author Organization [facility] Address [address] [place] [address] Phone Care Team Providers Care Sports Book Board Attendant Name Role Phone Yoli Townsend MD Primary Care Provider [phone] Encounter Details Date Type Department Care Team (Late st Contact Info) Description 09/27/2023 Documentation Only [facility] [address] [place] [address] Liliya Pérez [address] [place] [address] Social History Tobacco Use Types [...] [facility] [address] [place] [place] [address] Chester Ventura MD [address] [place] [address] [place] [address] documented as of this encounter Visit Diagnoses Not on filedocumented in this encounter Care Teams Sports Book Board Attendant Relationship Specialty Start Date End Date Yoli Townsend MD [address] [place], [place] PCP - General 06/09/19 documented as of this encounter
--- OUTSIDE RECORDS SUMMARY | 2024-11-13 10:10 | XMS_ITS | Encounter Summary ---
Author Organization [facility] Address [address] [place] [address] Phone Care Team Providers Care Procedure Rn Name Role Phone Yoli Townsend MD Primary Care Provider [phone] Encounter Details Date Type Department Care Team (Late st Contact Info) Description 06/23/2024 Office Communication [facility] Dr [address] [place] [address] Chester Ventura MD [address] [place] [address] [place] [address] Social History Tobacco Use Types [...] Visit [facility] [address] [place] [address] Chester Ventura MD [address] [facility] [place] [address] documented as of this encounter Visit Diagnoses Not on filedocumented in this encounter Care Teams Procedure Rn Relationship Specialty Start Date End Date Yoli Townsend MD [address] [place], [place] PCP - General 06/09/19 documented as of this encounter
--- OUTSIDE RECORDS SUMMARY | 2024-11-13 10:10 | XMS_ITS | Encounter Summary ---
Author Organization [facility], Address [address] [place] [address] Phone Care Team Providers Care Welt Maker Name Role Phone Yoli Townsend MD Primary Care Provider [phone] Reason for Visit * Reason Comments Med Refill Encounter Details Date Type Department Care Team (Late Contact Info) Description 02/18/2020 Refill [facility] [address] [place] [address] Chester Ventura MD [address] [facility] [place] [address] Social History Tobacco Use Types [...] Visit [facility] [place], [address] [place] [address] Chester Ventura MD [address] [facility] [place] [address] documented as of this encounter Visit Diagnoses Not on filedocumented in this encounter Care Teams Welt Maker Relationship Specialty Start Date End Date Yoli Townsend MD [address] [place] PCP - General 06/09/19 documented as of this encounter
--- OUTSIDE RECORDS SUMMARY | 2024-11-13 10:10 | XMS_ITS | Patient Health Record ---
Author Organization [facility] Address [address] [place] [address] Care Team Providers Care Bush And Vine Fruit Crop Farmer Name Role Phone Yoli Townsend Primary Care Provider UnavailKostas Love Unavailable [phone] Allergies No Known Allergies Results Component Value Reference Range Notes Complete Blood Count Auto Di ff Reviewed date:06/11/2024 01:39:17 PM Interpretation: Performing Lab:[facility], [address] [place] [address] Notes/Report: White Blood Count 6.8 4.8-10.8 X10*3/uL [...] INR Reviewed date:06/11/2024 01:39:24 PM Interpretation: Performing Lab:[facility], [address] [place] [address] Notes/Report: Prothrombin Time 11.5 10.9-12.4 SEC INTERNATIONAL [...] A2 Reviewed date:06/17/2024 05:10:57 PM Interpretation: Performing Lab:[facility], [address] [place] [address] Notes/Report: Lipoprotein Asso Phospholip A2 106 <124 Result Units: nmol/min/mL This test was developed and its analytical performance characteristics have been determined by [facility]. It has not been cleared or approved by the U.S. Food and Drug Administration. This assay has been validated pursuant to the CLIA regulations and is used for clinical purposes. Relative Risk: Optimal <=123 nmol/min/mL; High >123 nmol/min/mL. See Note 1 Note 1 This test was developed and its analytical performance characteristics have been determined by [facility]. It has not been cleared or approved by the FDA. This assay has been validated pursuant to the CLIA regulations and is used for clinical purposes. THIS TEST WAS PERFORMED AT: [facility] [address] [facility] [address] [place] [address] ERIN TURNER,PHD,[facility] Apolipoprotein B Reviewed date:06/17/2024 05:10:38 PM Interpretation: Performing Lab:[facility], [address] [place] [phone] Notes/Report: Apolipoprotein B 121 <90 mg/dL Reference Range: <90 Risk Category: Optimal < 90 Moderate 90 - 119 High > or = 120 Cardiovascular event risk category cut points (optimal, moderate, high) are based on National Lipid Association recommendations-Lalitha handy TA et al. J Clin Lipid. 2015;9:129-169 and Etelvina TUCKER et al. Endocr Pract. 2017;23(Suppl 2):1-87. THIS TEST WAS PERFORMED AT: [email or web address] [address] GONZALO ALVARADO MD,PHD Vitamin B12 and Folate Reviewed date:06/11/2024 01:40:13 PM Interpretation: Performing Lab:[facility], [address] [place] [address] Notes/Report: Vitamin B12 804 200-900 pg/mL NORMAL 200-900 PG/ML INDETERMINATE 160-199 PG/ML DEFICIENT < 160 PG/ML Folate 14.7 > or = 4.0 ng/mL Reference Values: > or = 4.0 ng/mL < 4.0 ng/mL suggests folate deficiency Methotrexate, aminopterin and folinic acid (leucovorin) are chemotherapeutic agents whose molecular structures are similar to folate; therefore, the Cosmetic Assembler folate assay cannot be used for patients using these drugs. Vitamin D 25-OH Total Reviewed date:06/11/2024 01:39:39 PM Interpretation: Performing Lab:[facility], [address] [place] [phone] Notes/Report: Vitamin D 25-OH Total 27.9 >30 [...] Random Reviewed date:06/11/2024 01:38:36 PM Interpretation: Performing Lab:[facility], [address] [place] [address] Notes/Report: Creatinine Urine 88.40 Microalbumin Urine 152.0 Microalbum/Creatinine Ratio Ur 171.9 <30 ug/mg cr Albumin/Creatinine Ratio Reference Ranges: Normal: < 30 ug/mg creatinine Microalbuminuria: 30 - 300 ug/mg creatinine Clinical Albuminuria: > 300 ug/mg creatinine US abdomen comp w elastograp hy (Not yet reviewed by provider) Interpretation: Performing Lab: Notes/Report: [address] [address] Ultrasound Report Signed Patient: Heather Combs MR#: [id number] : 1960 Acct:[id number] Age/Sex: 64 / F ADM Date: 06/11/24 Loc: HO.US Attending Dr: Kostas Erazo MD Ordering Physician: Kostas Erazo MD Date of Service: 06/11/24 Procedure(s): US abdomen comp w elastography Accession Number(s): [id number] cc: Yoli Townsend MD; Kostas Erazo MD [...] by: Daljit Last MD 08/13/2024 11:52 PM [facility] Dictated By: Daljit Last MD Signed By: <Electronically signed by Daljit Last MD in OV> 08/13/24 2352 DD/ 0807 TD/TT: 06/11/24 0830 Television Anchor: [place] [id number] Ultrasound Report Signed Patient: Heather Combs MR#: [id number] : 1960 Acct:[id number] Age/Sex: 64 / F ADM Date: 06/11/24 Loc: HO.US Attending Dr: Kostas Erazo MD Ordering Physician: Kostas Erazo MD Date of Service: 06/11/24 Procedure(s): US abdomen comp w elastography Accession Number(s): [id number] cc: Yoli Townsend MD; Kostas Erazo MD [...] by Daljit Last MD in OV> 08/13/24 1452 DD/ 0807 TD/TT: 06/11/24 0830 Television Anchor: ROBINSON Reason For Referral No Information Medications [...] Problem Screening for malignant neoplasm of colon (138697695) Encounter for screening for malignant neoplasm of colon (Z12.11) Active confirmed Problem Hepatic fibrosis (76555868) Hepatic fibrosis (K74.0) Active confirmed Problem 846779055 Elevated liver enzymes (R74.8) Active confirmed Problem 764557126 Fatty liver (K76.0) Active confirmed Problem 17402948 Liver fibrosis (K74.0) Active confirmed Problem Gastroesophageal reflux disease (056584731) GERD without esophagitis (K21.9) Active confirmed Problem Diverticulosis of colon (784810026) Diverticulosis of colon (K57.30) Active confirmed Problem Hepatic fibrosis (disorder) (37909544) Liver fibrosis (K74.00) Active confirmed Vital Signs Blood pressure diastolic 00 mm Hg 05/28/2024 Height 61 in 05/28/2024 Blood pressure systolic 00 mm Hg 05/28/2024 Weight 197 lbs 05/28/2024 BMI 37.22 kg/m2 05/28/2024 Encounters Encounter Location Date Provider Diagnosis [facility] [address] [place] [address] 05/28/2024 Kostas Erazo Fatty liver K76.0 ; [...] Test Name Order Date LIVER PROFILE 05/28/2024 LIVER PROFILE 01/23/2022 LIVER PROFILE 05/29/2023 LIVER PROFILE 11/29/2020 LIVER PROFILE 12/24/2017 LIVER PROFILE 08/06/2013 CBC w DIFF 05/28/2024 CBC w DIFF 01/23/2022 CBC w DIFF 05/29/2023 PROTHROMBIN TIME (PT, INR) 01/23/2022 PROTHROMBIN TIME (PT, INR) 12/24/2017 ALPHA-FETOPROTEIN,TUMOR MARKER 5 ALPHA-FETOPROTEIN,TUMOR MARKER 0 ALPHA-FETOPROTEIN,TUMOR MARKER 7 ALPHA-FETOPROTEIN,TUMOR MARKER 4 ALPHA-FETOPROTEIN,TUMOR MARKER 1 ALPHA-FETOPROTEIN,TUMOR MARKER 2 ALPHA-FETOPROTEIN,TUMOR MARKER 3 ALPHA-FETOPROTEIN,TUMOR MARKER 4 ALPHA-FETOPROTEIN,TUMOR MARKER 8 US ABD 11/29/2020 US ABD 01/23/2022 US LIVER BIOPSY CORE GUIDE 04/22/2012 Prothrombin Time INR 05/28/2024 Liver Fibrosis Pnl 01/23/2022 Liver Fibrosis Pnl 05/28/2024 US abdomen comp w elastography 4 US abdomen comp w elastography 4 Future Test Test Name Order Date UPPER GI ENDOSCOPY 11/15/2011 COLONOSCOPY 11/15/2011 COLONOSCOPY 01/23/2022 Next Appt Details Provider Name:Kostas Erazo , 05/27/2025 11:00:00 AM, [address] [facility], [address], [place], [address], Insurance Providers Payer Name Payer Address Payer Phone Subscriber Number Group Number Insured Name Patient Relationship to Insured Coverage Start Date Coverage End Date [facility] [employer] [facility] [address] [address] [place], [place] [id number] HEATHER COMBS Self - patient is the insured MEDICAID OF [facility] [address] [place] [address] [id number] HEATHER COMBS Self - patient is the insured Medical (General) History Medical History History ICD Code Diabetes HTN Denies DC,CVA,Lung disease,renal disease Kidney stones, s/p lithotripsy hyperlipidemia [...]
--- OUTSIDE RECORDS SUMMARY | 2024-11-13 10:10 | XMS_ITS | Encounter Summary ---
Author Organization [facility] Address [address] [place] [address] Phone Care Team Providers Care Senior Risk Analyst Name Role Phone Yoli Townsend MD Primary Care Provider [phone] Encounter Details Date Type Department Care Team (Late Contact Info) Description 06/12/2023 Documentation Only [facility] Dr [address] [place] [address] Chester Ventura MD [address] [address] [place] [address] Social History Tobacco Use Types [...] Visit [facility] [address] [place] [address] Chester Ventura MD [address] [facility] [place] [address] documented as of this encounter Visit Diagnoses Not on filedocumented in this encounter Care Teams Senior Risk Analyst Relationship Specialty Start Date End Date Yoli Townsend MD [address] [place], [place] PCP - General 06/09/19 documented as of this encounter
--- OUTSIDE RECORDS SUMMARY | 2024-11-13 10:10 | XMS_ITS | Encounter Summary ---
Author Organization [facility] Address [address] [place] [address] Phone Care Team Providers Care Assembly Machine Tool Setter Name Role Phone Yoli Townsend MD Primary Care Provider [phone] Encounter Details Date Type Department Care Team (Late st Contact Info) Description 10/08/2023 Documentation Only [facility] [address] [place] [address] Liliya Pérez [address] [place] [address] Social History Tobacco Use Types [...] Visit [facility] [address] [place] [address] Chester Ventura MD [address] [place] [address] [place] [address] documented as of this encounter Visit Diagnoses Not on filedocumented in this encounter Care Teams Assembly Machine Tool Setter Relationship Specialty Start Date End Date Yoli Townsend MD [address] [place], [place] PCP - General 06/09/19 documented as of this encounter
== END 2024-11-13 10:18 | disposition home or self-care (01) ==
LOC: HO.HMCH 09:39
PROVIDERS: PCP Internal Medicine; Visit Provider Physician Assistant Medical
DX: Z87.442 Personal history of urinary calculi (principal); R10.9 Unspecified abdominal pain

== ENCOUNTER → 2024-11-13 09:39 | Outpatient (BNVA) | payer OTHER, SELFPAY | PROVIDERS: PCP Internal Medicine; Visit Provider Physician Assistant Medical | DX: R10.9 Unspecified abdominal pain (principal); Z87.442 Personal history of urinary calculi | CPT/HCPCS: 96127; 99212 ==

== ENCOUNTER 2024-11-19 08:34 | Outpatient (REF) | payer OTHER, SELFPAY ==
--- NOTE | ~2024-11-19 | CT_ITS ---
EXAMINATION: CT ABDOMEN AND PELVIS WITHOUT CONTRAST CLINICAL INFORMATION: Unspecified abdominal pain. COMPARISON: 01/21/2023. TECHNIQUE: Multidetector volumetric imaging was performed from the superior aspect of the liver through the pubic symphysis. Sagittal and coronal reformatted images were obtained on the technologist's workstation. This CT examination was performed using dose optimization techniques as appropriate, variously including the following: *Automated exposure control *Adjustment of mA and/or kV according to patient size (this includes techniques or standardized protocols for targeted exams where dose is matched to indication/reason for exam; i.e. extremities or head) *Use of iterative reconstruction technique FINDINGS: LUNG BASES: Lung bases are clear. Heart size is normal. GE junction is normal. There are no effusions. LIVER, GALLBLADDER, AND BILIARY TREE: Unenhanced liver is normal in size, contour, and appearance without focal lesion. No intrahepatic biliary dilatation. Mild prominence of the extrahepatic ducts measuring up to 1.5 cm is stable. Gallbladder is surgically absent. PANCREAS: Mild to moderate fatty atrophy. SPLEEN: Unenhanced spleen is normal. ADRENAL GLANDS: Unremarkable. KIDNEYS AND URETERS: Right kidney: No hydronephrosis or mass. There are cortical cysts, the largest in the upper pole measuring 4.3 x 3.3 cm. There are numerous tiny nonobstructing calculi in the lower pole regions measuring up to 3 mm. There is hyperattenuation of the renal pyramids suggesting medullary nephrocalcinosis. No ureteral dilatation. Left kidney: There is a large cyst in the mid to lower pole region measuring 12.5 x 11.8 x 12.0 cm. There are smaller cysts. There are stable dystrophic appearing calcifications in the upper pole dorsal region, unknown if this communicates with the collecting system. The larger more anterior calcification measures 2.0 cm in diameter. Stellate appearance. There are additional tiny nonobstructing calculi measuring up to 4 mm. No definite hydronephrosis or hydroureter. No definite masses. There is hyperattenuation of the renal pyramids suggesting medullary nephrocalcinosis. BLADDER: Decompressed. No abnormalities. GASTROINTESTINAL TRACT: The stomach, duodenum, and small bowel have a normal appearance. A normal appendix is visualized. The colon demonstrates a few scattered diverticula. No wall thickening. Normal course and caliber. There is a tiny amount of subtle inflammation surrounding a diverticulum in the sigmoid region (series 5, image 73) findings which could represent a mild case of acute diverticulitis. This is a very subtle finding. No rectal abnormality. ABDOMINAL WALL: No significant hernia is appreciated. LYMPH NODES: None enlarged. VASCULAR: Mild to moderate atheromatous calcification of the aorta and iliac arteries. No aneurysm. PELVIC VISCERA: There has been a hysterectomy. There are no adnexal masses. OSSEOUS STRUCTURES: There is no suspicious lytic or blastic bone lesion. There are very mild degenerative spinal changes. Normal SI joints. CT/CT abdomen pelvis wo IV con IMPRESSION: 1. Nonobstructing bilateral renal calculi. Stable dystrophic calculi in the left kidney. No hydronephrosis. Large left greater than right renal cysts. 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 Differential includes hypercalcemic states, medullary sponge kidney, RTA type I, and oxalosis. 2. Cholecystectomy. 3. Very subtle finding of possible mild acute diverticulitis of the proximal sigmoid colon as discussed. 4. Remaining ancillary findings as discussed. Electronically signed by: Ed Garcia MD 11/19/2024 09:48 AM EDT
--- OUTSIDE RECORDS SUMMARY | 2024-11-19 09:02 | XMS_ITS | Encounter Summary ---
Author Organization [facility] Address [address] [place] [address] Phone Care Team Providers Care Auto Parts Professional Name Role Phone Yoli Townsend MD Primary Care Provider [phone] Encounter Details Date Type Department Care Team (Late Contact Info) Description 06/10/2023 Documentation Only [facility] Dr [address] [place] [address] Chester Ventura MD [address] [place] [address] [place] [address] Social History Tobacco Use Types [...] Visit [facility] [address] [address] Chester Ventura MD [address] [facility] [place] [address] documented as of this encounter Visit Diagnoses Not on filedocumented in this encounter Care Teams Auto Parts Professional Relationship Specialty Start Date End Date Yoli Townsend MD [address] [place], [place] PCP - General 06/09/19 documented as of this encounter
--- OUTSIDE RECORDS SUMMARY | 2024-11-19 09:02 | XMS_ITS | Encounter Summary ---
Author Organization [facility] Address [address] [place] [address] Phone Care Team Providers Care Framing Inspector Name Role Phone Yoli Townsend MD Primary Care Provider [phone] Encounter Details Date Type Department Care Team (Late Contact Info) Description 06/01/2022 Documentation Only [facility] [address] [place] [address] Chester Ventura MD [address] [place] [address] [place] [address] Social History Tobacco Use Types [...] Visit [facility] [address] [place] [address] Chester Ventura MD [address] [place] [address] [place] [address] documented as of this encounter Visit Diagnoses Not on filedocumented in this encounter Care Teams Framing Inspector Relationship Specialty Start Date End Date Yoli Townsend MD [address] [place], [place] PCP - General 06/09/19 documented as of this encounter
--- OUTSIDE RECORDS SUMMARY | 2024-11-19 09:02 | XMS_ITS | Encounter Summary ---
Author Organization [facility] Address [address] [place] [address] Phone Care Team Providers Care Crystal Grower Name Role Phone Yoli Townsend MD Primary Care Provider [phone] Encounter Details Date Type Department Care Team (Late Contact Info) Description 12/04/2022 Documentation Only [facility] [address] [place] [address] Chester Ventura MD [address] [place] [address] [place] [address] Social History Tobacco Use Types [...] Visit [facility] [address] [place] [address] Chester Ventura MD [address] [place] [address] [place] [address] documented as of this encounter Visit Diagnoses Not on filedocumented in this encounter Care Teams Crystal Grower Relationship Specialty Start Date End Date Yoli Townsend MD [address] [place], [place] PCP - General 06/09/19 documented as of this encounter
--- OUTSIDE RECORDS SUMMARY | 2024-11-19 09:02 | XMS_ITS | Encounter Summary ---
Author Organization [facility] Address [address] [place] [address] Phone Care Team Providers Care Job Printer Name Role Phone Yoli Townsend MD Primary Care Provider [phone] Encounter Details Date Type Department Care Team (Late Contact Info) Description 12/04/2022 Documentation Only [facility] [address] [place] [address] Chester Ventura MD [address] [place] [address] [place] [address] Social History Tobacco Use Types [...] Visit [facility] [address] [place] [address] Chester Ventura MD [address] [place] [address] [place] [address] documented as of this encounter Visit Diagnoses Not on filedocumented in this encounter Care Teams Job Printer Relationship Specialty Start Date End Date Yoli Townsend MD [address] [place], [place] PCP - General 06/09/19 documented as of this encounter
--- OUTSIDE RECORDS SUMMARY | 2024-11-19 09:02 | XMS_ITS ---
Author Organization [facility] Address [address] [place] [address] Care Team Providers Care Government Minister Name Role Phone Yoli Townsend Primary Care Provider Kostas Hinson Unavailable [phone] Allergies No Known Allergies Results Component Value Reference Range Notes Prothrombin Time INR Reviewed date:05/31/2023 12:32:48 AM Interpretation: Performing Lab:[facility], [address] [place] [address] Notes/Report: Prothrombin Time 12.0 11.1-13.3 SEC INTERNATIONAL [...] Pnl Reviewed date:06/05/2023 06:22:40 PM Interpretation: Performing Lab:[facility], [address] [place] [phone] Notes/Report: Liver Fibrosis Score 0.14 Liver Fibrosis [...] a>0.62 and a<=1.00 : A3 (severe activity) PRQ-Hpbuu-0-Macroglobulin 251 106-279 mg/dL FIB-Haptoglobin 193 43-212 mg/dL FIB-Apolipoprotein A1 203 101-198 mg/dL FIB-Total Bilirubin 0.5 0.2-1.2 mg/dL FIB-GGT 20 3-65 U/L FIB-ALT 22 6-29 U/L Reference ID [id number] Footnote SEE NOTE The reliability of results is dependent on compliance with the preanalytical and analytical conditions recommended by [employer]. The tests have to be deferred for: [...] The performance characteristics have been determined by [facility]. It has not been cleared or approved by the U.S. Food and Drug Administration. Performance characteristics refer to the analytical performance of the test. [employer], [employer], the associated logo, Jenn Rykert and all associated [employer] wild are the registered trademarks of [employer]. All third alliance party wild - (R) and (TM) - are the property of their respective owners. (C) 4124-4468 [employer]. All rights reserved. THIS TEST WAS PERFORMED AT: [employer] [facility] [address] [place] [address] GWENDOLYN SAENZ MD,PHD,ZAIRA REASON FOR VISIT Patient [...] CAPSULAS POR VIA ORAL DOS VECES AL IVLEISSE Orally BID Active Pioglitazone HCl Act yocasta [...] 05/29/2023 Encounters Encounter Location Date Provider Diagnosis [facility] [address] [place] [address] 05/29/2023 Kostas Erazo Fatty liver K76.0 ; [...] Provider Name:Kostas Erazo , 05/27/2025 11:00:00 AM, [address] [place] [address], [address], [place], [address], Progress Notes * HEATHER COMBS EDOB: (63 yo F)Acc No.[id number]:05/29/2023 Progress Notes Patient:?HEATHER COMBS E Provider:?Kostas Erazo MD :1960???Age:63 Y???Sex:Female D ate:05/29/2023 Address:[facility] [address], [place], [place] Pcp:Yoli Padilla Subjective: * Chief Complaints: * [...] Inflam Act Interpretation SEE NOTE - * ?FMW-Cpqvt-4-Macroglobulin 251 106-279 - mg/dL * ?FIB-Haptoglobin 193 43-212 - mg/dL * ?FIB-Apolipoprotein A1 203 A 1 01-198 - mg/dL * ?FIB-Total Bilirubin 0.5 0.2 -1.2 - mg/dL * ?FIB-GGT 20 3-65 - U/L * ?FIB-ALT 22 6-29 - U/L * ?Reference ID [id number] - * ?Footnote SEE NOTE - 2.?Elevated [...] Inflam Act Interpretation SEE NOTE - * ?UXR-Dirme-2-Macroglobulin 251 106-279 - mg/dL * ?FIB-Haptoglobin 193 43-212 - mg/dL * ?FIB-Apolipoprotein A1 203 A 1 01-198 - mg/dL * ?FIB-Total Bilirubin 0.5 0.2 -1.2 - mg/dL * ?FIB-GGT 20 3-65 - U/L * ?FIB-ALT 22 6-29 - U/L * ?Reference ID [id number] - * ?Footnote SEE NOTE - 3.?Liver [...] Inflam Act Interpretation SEE NOTE - * ?MMM-Etaqu-6-Macroglobulin 251 106-279 - mg/dL * ?FIB-Haptoglobin 193 43-212 - mg/dL * ?FIB-Apolipoprotein A1 203 A 1 01-198 - mg/dL * ?FIB-Total Bilirubin 0.5 0.2 -1.2 - mg/dL * ?FIB-GGT 20 3-65 - U/L * ?FIB-ALT 22 6-29 - U/L * ?Reference ID [id number] - * ?Footnote SEE NOTE - 4.?Encounter for screening for malignant neoplasm of colon? Notes: Repeat colonoscopy in 03/2027.??5.?Others? Refill PriLOSEC Capsule Delayed Release, 20 MG, 1 capsule, Orally, Once a day, 30 days, 30, [id number];?Continue Ursodiol Capsule, 300 MG, TOME 2 CAPSULAS POR VIA ORAL DOS VECES AL IVELISSE.? * Procedure Codes:?3017F COLOR ECTAL CA SCREEN DOC [id number] TOBACCO [id number] BP SCR NOT PRFRM REC REASON NOS * Preventive Medicine:? ??Counseling:?Care goal follow-up plan:?Above Normal BMI Follow-up?Giving encouragement to exercise,?BMI management provided?Yes.? * Follow Up:?1 Year * * Sign off status: Completed true * Provider:?Kostas Erazo MD Date:? 023 Generated for Joanie castañeda/Bill/Sayraitting on:?11/19/2024 09:02 AM EDT History and Physical Notes * [...]
--- OUTSIDE RECORDS SUMMARY | 2024-11-19 09:02 | XMS_ITS | Encounter Summary ---
Author Organization [facility] Address [address] [place] [address] Phone Care Team Providers Care Family Coach Name Role Phone Yoli Townsend MD Primary Care Provider [phone] Encounter Details Date Type Department Care Team (Late Contact Info) Description 11/30/2022 Documentation Only [facility] Dr [address] [place] [address] Chester Ventura MD [address] [place] [address] [place] [address] Social History Tobacco Use Types [...] Visit [facility] [address] [place] [address] Chester Ventura MD [address] [facility] [place] [address] documented as of this encounter Visit Diagnoses Not on filedocumented in this encounter Care Teams Family Coach Relationship Specialty Start Date End Date Yoli Townsend MD [address] [place], [place] PCP - General 06/09/19 documented as of this encounter
--- OUTSIDE RECORDS SUMMARY | 2024-11-19 09:02 | XMS_ITS | Encounter Summary ---
Author Organization [facility] Address [address] [place] [address] Phone Care Team Providers Care Deli Cutter Slicer Name Role Phone Yoli Townsend MD Primary Care Provider [phone] Encounter Details Date Type Department Care Team (Late Contact Info) Description 06/12/2023 Documentation Only [facility] [address] [place] [address] Chester Ventura MD [address] [place] [address] [place] [address] Social History Tobacco Use Types [...] [facility] [address] [place] [address] Chester Ventura MD [address] [place] [address] [place] [address] documented as of this encounter Visit Diagnoses Not on filedocumented in this encounter Care Teams Deli Cutter Slicer Relationship Specialty Start Date End Date Yoli Townsend MD [address] [place], [place] PCP - General 06/09/19 documented as of this encounter
--- OUTSIDE RECORDS SUMMARY | 2024-11-19 09:02 | XMS_ITS | Encounter Summary ---
Author Organization [facility] Address [address] [place] [address] Phone Care Team Providers Care Farrowing Worker Name Role Phone Yoli Townsend MD Primary Care Provider Encounter Details Date Type Department Care Team (Late Contact Info) Description 06/18/2022 Documentation Only [facility] [address] [place] [address] Chester Ventura MD [address] [place] [address] [place] [address] Social History Tobacco Use Types [...] Visit [facility] [address] [place] [address] Chester Ventura MD [address] [place] [address] [place] [address] documented as of this encounter Visit Diagnoses Not on filedocumented in this encounter Care Teams Farrowing Worker Relationship Specialty Start Date End Date Yoli Townsend MD [address] [place], [place] PCP - General 06/09/19 documented as of this encounter
--- OUTSIDE RECORDS SUMMARY | 2024-11-19 09:02 | XMS_ITS | Clinical Summary ---
Author Organization [facility] [place], Address [address] [place] [address] [place] [address] Phone Care Team Providers Care Retirement Assistant Name Role Phone Yoli Townsend MD Primary Care Provider [phone] Allergies Active Allergy Reactions Criticality Noted Date [...] 0 Active ergocalciferol (VITAMIN D2) 1.25 MG (94080 UT) capsule TOME 1 CAPSULA POR VIA [...] Hypertension Father Diabetes Mother Heart disease Mother [place] Hypertension Mother Cancer Sister Relation Status Comments [...] Visit [facility] [place], [address] [place] [address] Chester Ventura MD [address] [facility] [address] [address] Health Maintenance Due Date Last Done Comments Breast Cancer Screening 1960 Pneumococcal Vaccine: 50+ Ye ars (1 of 2 - PCV) 1979 Colorectal Cancer Screening: Annual FOBT 2009 Colorectal [...] PM EDT) Hemoglobin A1C 8.1(H) (4-6) % [place] [address] Comment: HEMOGLOBIN A1C(%) ?? GLUCOSE CONTROL INDEX ?<6% ? EXCELLENT ?6-7% ?VERY GOOD ?7-8% ?GOOD ?8-10% ? FAIR ?>10% ?POOR Hemoglobin (Hb) A1c testing is performed by Lary Roselyn-quant immunoassay. Any cause of shortened erythrocyte survival will reduce exposure of erythrocytes to glucose with a consequent decrease in Hb A1c (%). Testing performed or reported by ~[facility], ~a Service of [facility], ~[address], [place] [address]~ 02/09/2019 3:56 PM EDT us Chester Ventura MD LAB BLOOD ORDERABLES Final Resul t [facility] from Last 3 Months or Most Recently Relevant to Health Maintenance Insurance [facility] [employer] Care Teams Retirement Assistant Relationship Specialty Start Date End Date Yoli Townsend MD [address] [place] [address] PCP - General 06/09/19
--- OUTSIDE RECORDS SUMMARY | 2024-11-19 09:02 | XMS_ITS | Encounter Summary ---
Author Organization [facility] Address [address] [place] [address] Phone Care Team Providers Care Rail Detector Car Operator Name Role Phone Yoli Townsend MD Primary Care Provider [phone] Encounter Details Date Type Department Care Team (Late Contact Info) Description 06/06/2022 Documentation Only [facility] [address] [place] [address] Chester Vnetura MD [address] [place] [address] [place] [address] Social History Tobacco Use Types [...] Visit [facility] [address] [place] [address] Chester Ventura MD [address] [place] [address] [place] [address] documented as of this encounter Visit Diagnoses Not on filedocumented in this encounter Care Teams Rail Detector Car Operator Relationship Specialty Start Date End Date Yoli Townsend MD [address] [place], [place] PCP - General 06/09/19 documented as of this encounter
--- OUTSIDE RECORDS SUMMARY | 2024-11-19 09:03 | XMS_ITS | Encounter Summary ---
Author Organization [facility] Address [address] [place] [address] Phone Care Team Providers Care Manager Credit Name Role Phone Yoli Townsend MD Primary Care Provider [phone] Encounter Details Date Type Department Care Team (Late st Contact Info) Description 10/07/2023 Documentation Only [facility] [address] [place] [address] Liliya Pérez [address] [place] [address] Social History Tobacco Use Types [...] [facility] [address] [place] [address] Chester Ventura MD [address] [place] [address] [place] [address] documented as of this encounter Visit Diagnoses Not on filedocumented in this encounter Care Teams Manager Credit Relationship Specialty Start Date End Date Yoli Townsend MD [address] [place], [place] PCP - General 06/09/19 documented as of this encounter
--- OUTSIDE RECORDS SUMMARY | 2024-11-19 09:03 | XMS_ITS | Encounter Summary ---
Author Organization [facility], Address [address] [place] [address] Phone Care Team Providers Care Sack Cleaner Name Role Phone Yoli Townsend MD Primary Care Provider [phone] Reason for Visit * Reason Comments Med Refill Encounter Details Date Type Department Care Team (Late Contact Info) Description 02/17/2020 Refill [facility] [address] [place] [address] Chester Ventura MD [address] [facility] [place] [address] Social History Tobacco Use Types [...] Visit [facility] [place], [address] [place] [address] Chester Ventura MD [address] [facility] [place] [address] documented as of this encounter Visit Diagnoses Not on filedocumented in this encounter Care Teams Sack Cleaner Relationship Specialty Start Date End Date Yoli Townsend MD [address] [place] PCP - General 06/09/19 documented as of this encounter
--- OUTSIDE RECORDS SUMMARY | 2024-11-19 09:03 | XMS_ITS ---
Author Organization [facility] Address [address] [place] [address] Care Team Providers Care Therapeutic Support Staff Name Role Phone Yoli Townsend Primary Care Provider Unavailab Kostas Murguia [phone] REASON FOR VISIT elevated lft's Encounters Encounter Location Date Provider Diagnosis [facility] [address] [place] [address] 08/13/2023 Kostas Erazo Plan Of Treatment Next Appt Details Provider Name:Kostas Erazo , 05/27/2025 11:00:00 AM, [address], [address], [place], [address], Progress Notes * HEATHER COMBS EDOB: (64 yo F)Acc No.[id number]:08/13/2023 Progress Notes Patient:?HEATHER COMBS E Provider:?Kostas Erazo MD :1960???Age:63 Y???Sex:Female D ate:08/13/2023 Address:[address] [place] [address] [place] Pcp:Yoli Padilla Subjective: * Chief Complaints: * [...] MD Date:? 024 Generated for Joanie castañeda/Bill/Sayraitting on:?11/19/2024 09:03 AM EDT
--- OUTSIDE RECORDS SUMMARY | 2024-11-19 09:03 | XMS_ITS | Patient Health Record ---
Author Organization [facility] Address [address] [place] [address] Care Team Providers Care Screen Printing Machine Operator Helper Name Role Phone Yoli Townsend Primary Care Provider UnavailKostas Love Unavailable [phone] Allergies No Known Allergies Results Component Value Reference Range Notes Complete Blood Count Auto Di ff Reviewed date:06/11/2024 01:39:17 PM Interpretation: Performing Lab:[facility], [address] [place] [phone] Notes/Report: White Blood Count 6.8 4.8-10.8 X10*3/uL [...] INR Reviewed date:06/11/2024 01:39:24 PM Interpretation: Performing Lab:[facility], [address] [place] [address] Notes/Report: Prothrombin Time 11.5 10.9-12.4 SEC INTERNATIONAL [...] A2 Reviewed date:06/17/2024 05:10:57 PM Interpretation: Performing Lab:[facility], [address] [place] [phone] Notes/Report: Lipoprotein Asso Phospholip A2 106 <124 Result Units: nmol/min/mL This test was developed and its analytical performance characteristics have been determined by [facility]. It has not been cleared or approved by the U.S. Food and Drug Administration. This assay has been validated pursuant to the CLIA regulations and is used for clinical purposes. Relative Risk: Optimal <=123 nmol/min/mL; High >123 nmol/min/mL. See Note 1 Note 1 This test was developed and its analytical performance characteristics have been determined by [facility]. It has not been cleared or approved by the FDA. This assay has been validated pursuant to the CLIA regulations and is used for clinical purposes. THIS TEST WAS PERFORMED AT: [facility] [address] [facility] [address] [place] [address] ERIN TURNER,PHD,[facility] Apolipoprotein B Reviewed date:06/17/2024 05:10:38 PM Interpretation: Performing Lab:[facility], [address] [place] [phone] Notes/Report: Apolipoprotein B 121 <90 mg/dL Reference Range: <90 Risk Category: Optimal < 90 Moderate 90 - 119 High > or = 120 Cardiovascular event risk category cut points (optimal, moderate, high) are based on National Lipid Association recommendations-Lalitha handy TA et al. J Clin Lipid. 2015;9:129-169 and Etelvina TUCKER et al. Endocr Pract. 2017;23(Suppl 2):1-87. THIS TEST WAS PERFORMED AT: [facility]/[address] [address] GONZALO ALVARADO MD,PHD Vitamin B12 and Folate Reviewed date:06/11/2024 01:40:13 PM Interpretation: Performing Lab:[facility], [address] [place] [address] Notes/Report: Vitamin B12 804 200-900 pg/mL NORMAL 200-900 PG/ML INDETERMINATE 160-199 PG/ML DEFICIENT < 160 PG/ML Folate 14.7 > or = 4.0 ng/mL Reference Values: > or = 4.0 ng/mL < 4.0 ng/mL suggests folate deficiency Methotrexate, aminopterin and folinic acid (leucovorin) are chemotherapeutic agents whose molecular structures are similar to folate; therefore, the Orthopedic Assistant folate assay cannot be used for patients using these drugs. Vitamin D 25-OH Total Reviewed date:06/11/2024 01:39:39 PM Interpretation: Performing Lab:[facility], [address] [place] [phone] Notes/Report: Vitamin D 25-OH Total 27.9 >30 [...] Random Reviewed date:06/11/2024 01:38:36 PM Interpretation: Performing Lab:[facility], [address] [place] [address] Notes/Report: Creatinine Urine 88.40 Microalbumin Urine 152.0 Microalbum/Creatinine Ratio Ur 171.9 <30 ug/mg cr Albumin/Creatinine Ratio Reference Ranges: Normal: < 30 ug/mg creatinine Microalbuminuria: 30 - 300 ug/mg creatinine Clinical Albuminuria: > 300 ug/mg creatinine US abdomen comp w elastograp hy (Not yet reviewed by provider) Interpretation: Performing Lab: Notes/Report: [address] [address] Ultrasound Report Signed Patient: Heather Combs MR#: [id number] : 1960 Acct:[id number] Age/Sex: 64 / F ADM Date: 06/11/24 Loc: HO.US Attending Dr: Kostas Erazo MD Ordering Physician: Kostas Erazo MD Date of Service: 06/11/24 Procedure(s): US abdomen comp w elastography Accession Number(s): [id number] cc: Yoli Townsend MD; Kostas Erazo MD [...] by: Daljit Last MD 08/13/2024 11:52 PM [facility] Dictated By: Daljit Last MD Signed By: <Electronically signed by Daljit Last MD in OV> 08/13/24 2352 DD/ 0807 TD/TT: 06/11/24 0830 Mica Miner: [place] [address] Ultrasound Report Signed Patient: Heather Combs MR#: [id number] : 1960 Acct:[id number] Age/Sex: 64 / F ADM Date: 06/11/24 Loc: HO.US Attending Dr: Kostas Erazo MD Ordering Physician: Kostas Erazo MD Date of Service: 06/11/24 Procedure(s): US abdomen comp w elastography Accession Number(s): [id number] cc: Yoli Townsend MD; Kostas Erazo MD [...] by Daljit Last MD in OV> 08/13/24 3632 DD/ 0807 TD/TT: 06/11/24 0830 Mica Miner: ROBINSON Reason For Referral No Information Medications [...] Problem Screening for malignant neoplasm of colon (017150292) Encounter for screening for malignant neoplasm of colon (Z12.11) Active confirmed Problem Hepatic fibrosis (07905735) Hepatic fibrosis (K74.0) Active confirmed Problem 149992703 Elevated liver enzymes (R74.8) Active confirmed Problem 861150894 Fatty liver (K76.0) Active confirmed Problem 15871455 Liver fibrosis (K74.0) Active confirmed Problem Gastroesophageal reflux disease (809397770) GERD without esophagitis (K21.9) Active confirmed Problem Diverticulosis of colon (310428443) Diverticulosis of colon (K57.30) Active confirmed Problem Hepatic fibrosis (disorder) (21492728) Liver fibrosis (K74.00) Active confirmed Vital Signs Blood pressure diastolic 00 mm Hg 05/28/2024 Height 61 in 05/28/2024 Blood pressure systolic 00 mm Hg 05/28/2024 Weight 197 lbs 05/28/2024 BMI 37.22 kg/m2 05/28/2024 Encounters Encounter Location Date Provider Diagnosis [facility] [address] [place] [address] 05/28/2024 Kostas Erazo Fatty liver K76.0 ; [...] w DIFF 05/29/2023 PROTHROMBIN TIME (PT, INR) 12/24/2017 PROTHROMBIN TIME (PT, INR) 01/23/2022 ALPHA-FETOPROTEIN,TUMOR MARKER 3 ALPHA-FETOPROTEIN,TUMOR MARKER 4 ALPHA-FETOPROTEIN,TUMOR MARKER 8 ALPHA-FETOPROTEIN,TUMOR MARKER 5 ALPHA-FETOPROTEIN,TUMOR MARKER 0 ALPHA-FETOPROTEIN,TUMOR MARKER 7 ALPHA-FETOPROTEIN,TUMOR MARKER 4 ALPHA-FETOPROTEIN,TUMOR MARKER 1 ALPHA-FETOPROTEIN,TUMOR MARKER 2 US ABD 11/29/2020 US ABD 01/23/2022 US LIVER BIOPSY CORE GUIDE 04/22/2012 Prothrombin Time INR 05/28/2024 Liver Fibrosis Pnl 05/28/2024 Liver Fibrosis Pnl 01/23/2022 US abdomen comp w elastography 4 US abdomen comp w elastography 4 Future Test Test Name Order Date UPPER GI ENDOSCOPY 11/15/2011 COLONOSCOPY 11/15/2011 COLONOSCOPY 01/23/2022 Next Appt Details Provider Name:Kostas Erazo , 05/27/2025 11:00:00 AM, [address] [facility], [address], [place], [address], Insurance Providers Payer Name Payer Address Payer Phone Subscriber Number Group Number Insured Name Patient Relationship to Insured Coverage Start Date Coverage End Date [facility] [employer] [facility] [address] [address] [place], [place] [id number] HEATHER COMBS Self - patient is the insured MEDICAID OF [facility] [address] [place] [address] [id number] HEATHER COMBS Self - patient is the insured Medical (General) History Medical History History ICD Code Diabetes HTN Denies HI,CVA,Lung disease,renal disease Kidney stones, s/p lithotripsy hyperlipidemia [...]
--- OUTSIDE RECORDS SUMMARY | 2024-11-19 09:03 | XMS_ITS | Encounter Summary ---
Author Organization [facility], Address [address] [place] [address] Phone Care Team Providers Care Office Runner Name Role Phone Yoli Townsend MD Primary Care Provider [phone] Reason for Visit * Reason Comments Med Refill Encounter Details Date Type Department Care Team (Late Contact Info) Description 02/18/2020 Refill [facility] [address] [place] [address] Chester Ventura MD [address] [facility] [address] [place] [address] Social History Tobacco Use Types [...] Visit [facility] [place], [address] [address] [place] [address] Chester Ventura MD [address] [facility] [address] [place] [address] documented as of this encounter Visit Diagnoses Not on filedocumented in this encounter Care Teams Office Runner Relationship Specialty Start Date End Date Yoli Townsend MD [address] [place] PCP - General 06/09/19 documented as of this encounter
--- OUTSIDE RECORDS SUMMARY | 2024-11-19 09:03 | XMS_ITS ---
Author Organization [facility] Address [address] [place] [address] Care Team Providers Care Centrifugal Station Operator Name Role Phone Yoli Townsend Primary Care Provider UnavailKostas Love Unavailable [phone] Allergies No Known Allergies REASON FOR VISIT [...] 05/28/2024 Encounters Encounter Location Date Provider Diagnosis [facility] [address] [place] [address] 05/28/2024 Kostas Erazo Fatty liver K76.0 ; [...] Provider Name:Kostas Erazo , 05/27/2025 11:00:00 AM, [address] [place] [address], [facility], [place], [address], Progress Notes * HEATHER COMBS EDOB: (64 yo F)Acc No.[id number]:05/28/2024 Progress Notes Patient:?HEATHER COMBS Provider:?Kostas Erazo MD :1960???Age:64 Y???Sex:Female D ate:05/28/2024 Address:[address], [place] , [place] Pcp:Yoli Padilla Subjective: * Chief Complaints: * [...] elastography* sched for 06/11/24 at 8:00 am [facility] [place] 2nd [place] nothig to eat or drink 8hrs prior * 3.?Liver fibrosis?LAB: LIVER PROFILE ?LAB: CBC w DIFF ?LAB: ALPHA-FETOPROTEIN,TUMOR MARKER ?LAB: Prothrombin Time INR ?LAB: Liver Fibrosis Pnl ?Imaging: US abdomen comp w elastography* sched for 06/11/24 at 8:00 am [facility] [place] 2nd floor nothig to eat or drink 8hrs prior * 4.?Others? Refill PriLOSEC Capsule Delayed Release, 20 MG, 1 capsule, Orally, Once a day, 30 days, 30, [id number];?Refill Ursodiol Capsule, 300 MG, tome 2 capsulas por via oral dos veces al ivelisse, Orally, Twice a day, 30 days, 120, Refills 11.?? * Procedure Codes:?3017F COLOR ECTAL CA SCREEN DOC [id number] TOBACCO NON-[id number] BP SCR NOT PRFRM REC REASON NOS * Preventive Medicine:? ??Counseling:?Care goal follow-up plan:?Above Normal BMI Follow-up?Giving encouragement to exercise,?BMI management provided?Yes.? * Follow Up:?1 Year * * Sign off status: Completed true * Provider:?Kostas Erazo MD Date:? 024 Generated for Joanie castañeda/Bill/Ginette on:?11/19/2024 09:03 AM EDT History and Physical Notes * HPI (History of Present Illness) Category Sub-Category Detail Notes Category Not es incontinence I saw Heather in followup today in her to her underlying history of fatty liver with elevated LFTs and some liver fibrosis, as well as her gastroesophageal reflux. I last saw Heatehr in May of 2023. Since that time [...]
--- OUTSIDE RECORDS SUMMARY | 2024-11-19 09:03 | XMS_ITS | Encounter Summary ---
Author Organization [facility] Address [address] [place] [address] Phone Care Team Providers Care E Commerce Specialist Name Role Phone Yoli Townsend MD Primary Care Provider Encounter Details Date Type Department Care Team (Late st Contact Info) Description 09/27/2023 Documentation Only [facility] [address] [place] [address] Liliya Pérez [address] [place] [address] Social History Tobacco Use Types [...] Visit [facility] [address] [place] [address] Chester Ventura MD [address] [place] [address] [place] [address] documented as of this encounter Visit Diagnoses Not on filedocumented in this encounter Care Teams E Commerce Specialist Relationship Specialty Start Date End Date Yoli Townsend MD [address] [place], [place] PCP - General 06/09/19 documented as of this encounter
--- OUTSIDE RECORDS SUMMARY | 2024-11-19 09:03 | XMS_ITS | Clinical Summary ---
Author Organization [facility] Address [address] [place] [address] [address] [place] [address] Care Team Providers Care Braiding Machine Operator Name Role Phone Unavailable Primary Care Provider [...]
--- OUTSIDE RECORDS SUMMARY | 2024-11-19 09:03 | XMS_ITS | Encounter Summary ---
Author Organization [facility] Address [address] [place] [address] Phone Care Team Providers Care Set Up Mechanic Automatic Line Name Role Phone Yoli Townsend MD Primary Care Provider Encounter Details Date Type Department Care Team (Late Contact Info) Description 06/12/2023 Documentation Only [facility] [address] [place] [address] Chester Ventura MD [address] [place] [address] [place] [address] Social History Tobacco Use Types [...] Visit [facility] [address] [place] [place] [address] Chester Ventura MD [address] [facility] [place] [address] documented as of this encounter Visit Diagnoses Not on filedocumented in this encounter Care Teams Set Up Mechanic Automatic Line Relationship Specialty Start Date End Date Yoli Townsend MD [address] [place], [place] PCP - General 06/09/19 documented as of this encounter
--- OUTSIDE RECORDS SUMMARY | 2024-11-19 09:03 | XMS_ITS | Encounter Summary ---
Author Organization [facility] Address [address] [facility] 7t [place] [address] Care Team Providers Care Router Operator Name Role Phone Unavailable Primary Care Provider Unavailabl e Encounter Details Date Type Department Care Team (Latest Contact Info) Description 11/22/2021 Abstract [facility] CONVERSIONS Dental, Provider, DDS Social History Tobacco [...]
--- OUTSIDE RECORDS SUMMARY | 2024-11-19 09:03 | XMS_ITS | Encounter Summary ---
Author Organization [facility] Address [address] [place] [address] Phone Care Team Providers Care Nursery Nurse Name Role Phone Yoli [place] MD Primary Care Provider [phone] Encounter Details Date Type Department Care Team (Late st Contact Info) Description 09/27/2023 Documentation Only [facility] [address] [place] [address] Liliya Pérez [address] [place] [address] Social History Tobacco Use Types [...] Visit [facility] [address] [place] [address] Chester Ventura MD [address] [place] [address] [place] [address] documented as of this encounter Visit Diagnoses Not on filedocumented in this encounter Care Teams Nursery Nurse Relationship Specialty Start Date End Date Yoli [place] MD [address] [place], [place] PCP - General 06/09/19 documented as of this encounter
--- OUTSIDE RECORDS SUMMARY | 2024-11-19 09:04 | XMS_ITS | Encounter Summary ---
Author Organization [facility] Address [address] [place] [address] Phone Care Team Providers Care Broom Maker Name Role Phone Yoli [place] MD Primary Care Provider [phone] Encounter Details Date Type Department Care Team (Late st Contact Info) Description 06/23/2024 Office Communication [facility] Dr [address] [place] [address] Chester Ventura MD [address] [place] [address] [place] [address] Social History Tobacco Use Types [...] Visit [facility] [address] [place] [address] Chester Ventura MD [address] [facility] [place] [address] documented as of this encounter Visit Diagnoses Not on filedocumented in this encounter Care Teams Broom Maker Relationship Specialty Start Date End Date Yoli [place] MD [address] [place], [place] PCP - General 06/09/19 documented as of this encounter
--- OUTSIDE RECORDS SUMMARY | 2024-11-19 09:04 | XMS_ITS | Encounter Summary ---
Author Organization [facility] Address [address] [place] [address] Phone Care Team Providers Care Epitaxial Reactor Technician Name Role Phone Yoli [place] MD Primary Care Provider [phone] Encounter Details Date Type Department Care Team (Late Contact Info) Description 02/21/2022 Documentation Only [facility] [address] [place] [address] Chester Ventura MD [address] [place] [address] [place] [address] Social History Tobacco Use Types [...] Visit [facility] [address] [place] [address] Chester Ventura MD [address] [place] [address] [place] [address] documented as of this encounter Visit Diagnoses Not on filedocumented in this encounter Care Teams Epitaxial Reactor Technician Relationship Specialty Start Date End Date Yoli [place] MD [address] [place], [place] PCP - General 06/09/19 documented as of this encounter
--- OUTSIDE RECORDS SUMMARY | 2024-11-19 09:04 | XMS_ITS | Encounter Summary ---
Author Organization [facility] Address [address] [facility] 7t [place] [address] Care Team Providers Care Asian Studies Program Chair Name Role Phone Unavailable Primary Care Provider [...]
--- OUTSIDE RECORDS SUMMARY | 2024-11-19 09:04 | XMS_ITS | Encounter Summary ---
Author Organization [facility] Address [address] [place] [address] Phone Care Team Providers Care Chemistry Research Assistant Name Role Phone Yoli [place] MD Primary Care Provider [phone] Encounter Details Date Type Department Care Team (Late st Contact Info) Description 10/08/2023 Documentation Only [facility] [address] [place] [address] Liliya Pérez [address] [place] [address] Social History Tobacco Use Types [...] Visit [facility] [address] [place] [address] Chester Ventura MD [address] [place] [address] [place] [address] documented as of this encounter Visit Diagnoses Not on filedocumented in this encounter Care Teams Chemistry Research Assistant Relationship Specialty Start Date End Date Yoli [place] MD [address] [place], [place] PCP - General 06/09/19 documented as of this encounter
== END 2024-11-19 08:35 | disposition home or self-care (01) ==
LOC: HO.CT 08:34
PROVIDERS: PCP Internal Medicine; Visit Provider Physician Assistant Medical
DX: R10.9 Unspecified abdominal pain (principal); Z87.442 Personal history of urinary calculi
CPT/HCPCS: 74176

== ENCOUNTER → 2024-11-19 08:36 | Outpatient (BNV) | payer OTHER, SELFPAY | PROVIDERS: PCP Internal Medicine; Visit Provider Radiology Diagnostic Radiology | DX: N20.0 Calculus of kidney (principal) | CPT/HCPCS: 74176 ==

== ENCOUNTER 2024-11-27 06:20 | Outpatient (REF) | payer OTHER, SELFPAY ==
--- OUTSIDE RECORDS SUMMARY | 2024-11-27 06:22 | XMS_ITS | Encounter Summary ---
Author Organization [facility] Address [address] [place] [address] Phone Care Team Providers Care Parks Recreation Director Name Role Phone Yoli [place] MD Primary Care Provider [phone] Encounter Details Date Type Department Care Team (Late Contact Info) Description 06/12/2023 Documentation Only [facility] [address] [place] [address] Chester Ventura MD [address] [place] [address] [place] [address] Social History Tobacco Use Types [...] [facility] [address] [place] [address] Chester Ventura MD [address] [place] [address] [place] [address] documented as of this encounter Visit Diagnoses Not on filedocumented in this encounter Care Teams Parks Recreation Director Relationship Specialty Start Date End Date Yoli [place] MD [address] [place], [place] PCP - General 06/09/19 documented as of this encounter
--- OUTSIDE RECORDS SUMMARY | 2024-11-27 06:22 | XMS_ITS | Encounter Summary ---
Author Organization [facility] Address [address] [place] [address] Phone Care Team Providers Care Seed Sales Manager Name Role Phone Yoli [place] MD Primary Care Provider [phone] Encounter Details Date Type Department Care Team (Late st Contact Info) Description 10/08/2023 Documentation Only [facility] [address] [place] [address] Liliya Pérez [address] [place] [address] Social History Tobacco Use Types [...] [facility] [address] [place] [address] Chester Ventura MD [address] [place] [address] [place] [address] documented as of this encounter Visit Diagnoses Not on filedocumented in this encounter Care Teams Seed Sales Manager Relationship Specialty Start Date End Date Yoli [place] MD [address] [place], [place] PCP - General 06/09/19 documented as of this encounter
--- OUTSIDE RECORDS SUMMARY | 2024-11-27 06:22 | XMS_ITS | Encounter Summary ---
Author Organization [facility] Address [address] [place] [address] Phone Care Team Providers Care Dairy Consultant Name Role Phone Yoli [place] MD Primary Care Provider [phone] Encounter Details Date Type Department Care Team (Late Contact Info) Description 06/12/2023 Documentation Only [facility] Dr Crist[address] [place] [address] Chester Ventura MD [address] [place] [address] [place] [address] Social History Tobacco Use Types [...] [facility] [address] [place] [address] Chester Ventura MD [address] [facility] [place] [address] documented as of this encounter Visit Diagnoses Not on filedocumented in this encounter Care Teams Dairy Consultant Relationship Specialty Start Date End Date Yoli [place] MD [address] [place], [place] PCP - General 06/09/19 documented as of this encounter
--- OUTSIDE RECORDS SUMMARY | 2024-11-27 06:22 | XMS_ITS | Encounter Summary ---
Author Organization [facility] Address [address] [place] [address] Phone Care Team Providers Care Refrigerating Machine Operator Name Role Phone Yoli [place] MD Primary Care Provider [phone] Encounter Details Date Type Department Care Team (Late Contact Info) Description 12/04/2022 Documentation Only [facility] [address] [place] [place] [address] Chester Ventura MD [address] [place] [address] [place] [address] Social History Tobacco Use Types [...] [facility] [address] [place] [address] Chester Ventura MD [address] [place] [address] [place] [address] documented as of this encounter Visit Diagnoses Not on filedocumented in this encounter Care Teams Refrigerating Machine Operator Relationship Specialty Start Date End Date Yoli [place] MD [address] [place], [place] PCP - General 06/09/19 documented as of this encounter
--- OUTSIDE RECORDS SUMMARY | 2024-11-27 06:22 | XMS_ITS | Encounter Summary ---
Author Organization [facility], Address [address] [place] [address] Phone Care Team Providers Care Hand Rigger Name Role Phone Yoli [place] MD Primary Care Provider [phone] Reason for Visit * Reason Comments Med Refill Encounter Details Date Type Department Care Team (Late Contact Info) Description 02/18/2020 Refill [facility] [address] [place] [address] Chester Ventura MD [address] [facility] [place] [address] Social History Tobacco Use Types [...] Visit [facility] [place], [address] [facility] [place] [address] Chester Ventura MD [address] [facility] [address] [place] [address] documented as of this encounter Visit Diagnoses Not on filedocumented in this encounter Care Teams Hand Rigger Relationship Specialty Start Date End Date Yoli [place] MD [address] [place] PCP - General 06/09/19 documented as of this encounter
--- OUTSIDE RECORDS SUMMARY | 2024-11-27 06:22 | XMS_ITS | Encounter Summary ---
Author Organization [facility] Address [address] [place] [address] Phone Care Team Providers Care Top Case Assembler Name Role Phone Yoli [place] MD Primary Care Provider [phone] Encounter Details Date Type Department Care Team (Late Contact Info) Description 06/18/2022 Documentation Only [facility] [address] [place] [address] Chester Ventura MD [address] [place] [address] [place] [address] Social History Tobacco Use Types [...] [facility] [address] [place] [address] Chester Ventura MD [address] [place] [address] [place] [address] documented as of this encounter Visit Diagnoses Not on filedocumented in this encounter Care Teams Top Case Assembler Relationship Specialty Start Date End Date Yoli [place] MD [address] [place], [place] PCP - General 06/09/19 documented as of this encounter
--- OUTSIDE RECORDS SUMMARY | 2024-11-27 06:22 | XMS_ITS | Encounter Summary ---
Author Organization [facility] Address [address] [place] [address] Phone Care Team Providers Care Forensic Nurse Name Role Phone Yoli [place] MD Primary Care Provider [phone] Encounter Details Date Type Department Care Team (Late Contact Info) Description 11/30/2022 Documentation Only [facility] Dr Crist[address] [place] [address] Chester Vent[place] MD [address] [place] [address] [place] [address] Social History Tobacco Use Types [...] Visit [facility] [address] [facility] [place] [address] Chester Ventura MD [address] [facility] [place] [address] documented as of this encounter Visit Diagnoses Not on filedocumented in this encounter Care Teams Forensic Nurse Relationship Specialty Start Date End Date Yoli [place] MD [address] [place], [place] PCP - General 06/09/19 documented as of this encounter
--- OUTSIDE RECORDS SUMMARY | 2024-11-27 06:22 | XMS_ITS | Encounter Summary ---
Author Organization [facility] Address [address] [place] [address] Phone Care Team Providers Care County Ordinary Name Role Phone Yoli [place] MD Primary Care Provider [phone] Encounter Details Date Type Department Care Team (Late st Contact Info) Description 06/23/2024 Office Communication [facility] Dr [address] [place] [address] Chester Ventura MD [address] [place] [address] [place] [address] Social History Tobacco Use Types [...] [facility] [address] [place] [address] Chester Ventura MD [address] [facility] [place] [address] documented as of this encounter Visit Diagnoses Not on filedocumented in this encounter Care Teams County Ordinary Relationship Specialty Start Date End Date oYli [place] MD [address] [place], [place] PCP - General 06/09/19 documented as of this encounter
--- OUTSIDE RECORDS SUMMARY | 2024-11-27 06:22 | XMS_ITS | Encounter Summary ---
Author Organization [facility] Address [address] [place] [address] Phone Care Team Providers Care Employee Benefits Insurance Agent Name Role Phone Yoli [place] MD Primary Care Provider [phone] Encounter Details Date Type Department Care Team (Late Contact Info) Description 06/01/2022 Documentation Only [facility] [address] [place] [address] Chester Ventura MD [address] [place] [address] [place] [address] Social History Tobacco Use Types [...] Visit [facility] [address] [place] [address] Chester Ventura MD [address] [place] [address] [place] [address] documented as of this encounter Visit Diagnoses Not on filedocumented in this encounter Care Teams Employee Benefits Insurance Agent Relationship Specialty Start Date End Date Yoli [place] MD [address] [place], [place] PCP - General 06/09/19 documented as of this encounter
--- OUTSIDE RECORDS SUMMARY | 2024-11-27 06:22 | XMS_ITS | Encounter Summary ---
Author Organization [facility] Address [address] [place] [address] Phone Care Team Providers Care International Specialist Name Role Phone Yoli [place] MD Primary Care Provider [phone] Encounter Details Date Type Department Care Team (Late st Contact Info) Description 09/27/2023 Documentation Only [facility] Of [address] [place] [address] Liliya Pérez [address] [place] [address] Social History Tobacco Use Types [...] Visit [facility] [address] [place] [address] Chester Ventura MD [address] [place] [address] [place] [address] documented as of this encounter Visit Diagnoses Not on filedocumented in this encounter Care Teams International Specialist Relationship Specialty Start Date End Date Yoli [place] MD [address] [place], [place] PCP - General 06/09/19 documented as of this encounter
--- OUTSIDE RECORDS SUMMARY | 2024-11-27 06:22 | XMS_ITS | Encounter Summary ---
Author Organization [facility] Address [address] [place] [address] Phone Care Team Providers Care Olive Picker Name Role Phone Yoli [place] MD Primary Care Provider [phone] Encounter Details Date Type Department Care Team (Late Contact Info) Description 02/21/2022 Documentation Only [facility] Of [address] [place] [address] Chester Ventura MD [address] [place] [address] [place] [address] Social History Tobacco Use [...] [facility] [address] [place] [address] Chester Ventura MD [address] [place] [address] [place] [address] documented as of this encounter Visit Diagnoses Not on filedocumented in this encounter Care Teams Olive Picker Relationship Specialty Start Date End Date Yoli [place] MD [address] [place], [place] PCP - General 06/09/19 documented as of this encounter
--- OUTSIDE RECORDS SUMMARY | 2024-11-27 06:22 | XMS_ITS | Encounter Summary ---
Author Organization [facility] Address [address] [place] [address] Phone Care Team Providers Care Pyridine Operator Name Role Phone Yoli [place] MD Primary Care Provider [phone] Encounter Details Date Type Department Care Team (Late st Contact Info) Description 09/27/2023 Documentation Only [facility] Of [address] [place] [address] Liliya Pérez [address] [place] [address] Social History Tobacco Use Types [...] Visit [facility] Of [address] [place] [address] Chester Ventura MD [address] [place] [address] [place] [address] documented as of this encounter Visit Diagnoses Not on filedocumented in this encounter Care Teams Pyridine Operator Relationship Specialty Start Date End Date Yoli [place] MD [address] [place], [place] PCP - General 06/09/19 documented as of this encounter
--- OUTSIDE RECORDS SUMMARY | 2024-11-27 06:22 | XMS_ITS | Encounter Summary ---
Author Organization [facility] Address [address] [place] [address] Phone Care Team Providers Care Contract Specialist Name Role Phone Yoli [place] MD Primary Care Provider [phone] Encounter Details Date Type Department Care Team (Late Contact Info) Description 06/06/2022 Documentation Only [facility] Of [address] [place] [address] Chester Ventura MD [address] [place] [address] [place] [address] Social History Tobacco Use Types [...] Visit [facility] Of [address] [place] [address] Chester Ventura MD [address] [place] [address] [place] [address] documented as of this encounter Visit Diagnoses Not on filedocumented in this encounter Care Teams Contract Specialist Relationship Specialty Start Date End Date Yoli [place] MD [address] [place], [place] PCP - General 06/09/19 documented as of this encounter
--- OUTSIDE RECORDS SUMMARY | 2024-11-27 06:22 | XMS_ITS | Clinical Summary ---
Author Organization [facility], Address [address] [place] [address] [place] [address] Phone Care Team Providers Care Bull Rider Name Role Phone Yoli Townsend MD Primary Care Provider [phone] Allergies Active Allergy Reactions Criticality Noted Date [...] 0 Active ergocalciferol (VITAMIN D2) 1.25 MG (63710 UT) capsule TOME 1 CAPSULA POR VIA [...] Hypertension Father Diabetes Mother Heart disease Mother [place] Hypertension Mother Cancer Sister Relation Status Comments [...] Visit [facility], [address] [place] [address] Chester Ventura MD [address] [place] [address] Health Maintenance Due Date Last Done Comments [...] PM EDT) Hemoglobin A1C 8.1(H) (4-6) % [place] [address] Comment: HEMOGLOBIN A1C(%) ?? GLUCOSE CONTROL INDEX ?<6% ? EXCELLENT ?6-7% ?VERY GOOD ?7-8% ?GOOD ?8-10% ? FAIR ?>10% ?POOR Hemoglobin (Hb) A1c testing is performed by Lary Roselyn-quant immunoassay. Any cause of shortened erythrocyte survival will reduce exposure of erythrocytes to glucose with a consequent decrease in Hb A1c (%). Testing performed or reported by ~[facility], ~[facility], ~[address], [place] [address]~ 02/09/2019 3:56 PM EDT us Chester Ventura MD LAB BLOOD ORDERABLES Final Resul t [id number] from Last 3 Months or Most Recently Relevant to Health Maintenance Insurance [facility] Healthnet Care Teams Bull Rider Relationship Specialty Start Date End Date Yoli Townsend MD [address] [place] [address] PCP - General 06/09/19
--- OUTSIDE RECORDS SUMMARY | 2024-11-27 06:22 | XMS_ITS | Encounter Summary ---
Author Organization [facility] Address [address] [place] [address] Phone Care Team Providers Care Case Technician Name Role Phone Yoli Townsend MD Primary Care Provider [phone] Encounter Details Date Type Department Care Team (Late st Contact Info) Description 10/07/2023 Documentation Only [facility] [address] [place] [address] Liliya Pérez [address] [place] [address] Social History Tobacco Use Types [...] Visit [facility] [address] [place] [address] Chester Ventura MD [address] [place] [address] [place] [address] documented as of this encounter Visit Diagnoses Not on filedocumented in this encounter Care Teams Case Technician Relationship Specialty Start Date End Date Yoli Townsend MD [address] [place], [place] PCP - General 06/09/19 documented as of this encounter
--- OUTSIDE RECORDS SUMMARY | 2024-11-27 06:22 | XMS_ITS | Encounter Summary ---
Author Organization [facility] Address [address] [place] [address] Phone Care Team Providers Care Chemical Detection Expert Name Role Phone Yoli Townsend MD Primary Care Provider [phone] Encounter Details Date Type Department Care Team (Late Contact Info) Description 06/10/2023 Documentation Only [facility] [address] [place] [address] Chester Ventura MD [address] [place] [address] [place] [address] Social History Tobacco Use [...] Visit [facility] [address] [place] [address] Chester Ventura MD [address] [place] [address] documented as of this encounter Visit Diagnoses Not on filedocumented in this encounter Care Teams Chemical Detection Expert Relationship Specialty Start Date End Date Yoli Townsend MD [address] [place], [place] PCP - General 06/09/19 documented as of this encounter
--- OUTSIDE RECORDS SUMMARY | 2024-11-27 06:22 | XMS_ITS | Encounter Summary ---
Author Organization [facility] Address [address] [place] [address] Phone Care Team Providers Care Seal Delivery Vehicle Officer Name Role Phone Yoli Townsend MD Primary Care Provider [phone] Encounter Details Date Type Department Care Team (Late Contact Info) Description 12/04/2022 Documentation Only [facility] [address] [place] [address] Chester Ventura MD [address] [place] [address] [place] [address] Social History Tobacco Use Types [...] [facility] [address] [place] [address] Chester Ventura MD [address] [place] [address] [place] [address] documented as of this encounter Visit Diagnoses Not on filedocumented in this encounter Care Teams Seal Delivery Vehicle Officer Relationship Specialty Start Date End Date Yoli Townsend MD [address] [place], [place] PCP - General 06/09/19 documented as of this encounter
--- OUTSIDE RECORDS SUMMARY | 2024-11-27 06:22 | XMS_ITS | Encounter Summary ---
Author Organization [facility], Address [address] [place] [address] Phone Care Team Providers Care Airport Duty Manager Name Role Phone Yoli Townsend MD Primary Care Provider [phone] Reason for Visit * Reason Comments Med Refill Encounter Details Date Type Department Care Team (Late Contact Info) Description 02/17/2020 Refill [facility] [address] [place] [address] Chester Ventura MD [address] [facility] [address] [place] [address] Social History Tobacco Use Types [...] Visit [facility] [place], [address] [facility] [place] [address] Chester Ventura MD [address] [place] [address] documented as of this encounter Visit Diagnoses Not on filedocumented in this encounter Care Teams Airport Duty Manager Relationship Specialty Start Date End Date Yoli Townsend MD [address] [place] PCP - General 06/09/19 documented as of this encounter
[2024-11-27 06:33] LABS: MANUAL DIFF FLAG NO
[2024-11-27 07:20] LABS: Basophils Percent Auto 0.3 % (0-2); Eosinophils Absolute Auto 0.1 X10*3/uL (0.0-0.4); Eosinophils Percent Auto 0.7 % (0-4); Hematocrit 46.6 % (37.0-47.0); Hemoglobin 15.3 g/dl (12.0-16.0); Imm Gran Abs Auto 0.02 X10*3/uL (0.00-0.03); Imm Gran Pct Auto 0.3 % (0.0-0.4); Lymphocytes Absolute Auto 3.4 X10*3/uL (1.2-4.9); Lymphocytes Percent Auto 48.9 % (20-40); Mean Corpuscular HGB Conc 32.8 g/dl (31.0-35.0); Mean Corpuscular Hemoglobin 29.1 pg (27.0-33.0); Mean Corpuscular Volume 88.8 fL (80.0-98.0); Mean Platelet Volume 9.6 fL (9.4-12.3); Monocytes Absolute Auto 0.4 X10*3/uL (0.1-1.2); Monocytes Percent Auto 5.4 % (2-11); Neutrophils Absolute Auto 3.1 x10*3/uL (2.0-8.3); Neutrophils Percent Auto 44.4 % (45-73); Platelet Count 197 X10*3/uL (160-400); Red Blood Count 5.25 X10*6/uL (4.20-5.50); Red Cell Distribution Width 13.9 % (11.0-16.0)
[2024-11-27 07:44] LABS: Creatinine Urine 62.66 mg/dL; Microalbum/Creatinine Ratio Ur 94.1 ug/mg cr (<30)
[2024-11-27 07:55] LABS: Alanine Aminotransferase 45 U/L (0-31); Albumin Level 4.4 g/dL (3.5-5.0); Alkaline Phosphatase 107 U/L (39-117); Anion Gap 12 (12-20); Aspartate Amino Transferase 39 U/L (5-31); Bilirubin Total 0.4 mg/dL (0.0-1.0); Blood Urea Nitrogen 17 mg/dL (9-16); Calcium 10.1 mg/dL (8.4-10.2); Carbon Dioxide 26 mmol/L (22-29); Chloride 105 mmol/L (96-108); Cholesterol 139 mg/dL (<200); Estimated Glomerular Filt Rate > 60; Glucose Fasting 173 mg/dL (60-99); HDL Cholesterol 62 mg/dL (>40); LDL Cholesterol Calculated 58 mg/dL (<100); Sodium 139 mmol/L (135-145); Total Protein 7.8 g/dL (6.5-8.0); Triglycerides 98 mg/dL (<150)
[2024-11-27 08:15] LABS: Vitamin D 25-OH Total 27.6 ng/mL (>30)
[2024-11-27 08:17] LABS: Folate 10.9 ng/mL (> or = 4.0); Vitamin B12 932 pg/mL (200-900)
== END 2024-11-27 06:21 | disposition home or self-care (01) ==
LOC: HO.LAB 06:20
PROVIDERS: PCP Internal Medicine; Visit Provider Internal Medicine
DX: E11.65 Type 2 diabetes mellitus with hyperglycemia (principal); E53.8 Deficiency of other specified B group vitamins; E78.5 Hyperlipidemia, unspecified; E55.9 Vitamin D deficiency, unspecified; R80.9 Proteinuria, unspecified; D64.9 Anemia, unspecified
CPT/HCPCS: 36415; 80053; 80061; 82043; 82306; 82570; 82607; 82746; 85025

== ENCOUNTER 2024-12-01 12:56 | Outpatient (AMB) | payer OTHER, SELFPAY ==
--- NOTE | 2024-12-01 13:02 | MHC.PC.OV ---
Vital Signs 12/01/24 13:07 Height 5 ft 1 in Weight 190 lb BMI 35.9 BP 120/82 Blood Pressure Location Lt brachial Position Sitting Intake Visit Reasons: 4 month f/u Intake Note: Patient here for a 4 month follow up Newspaper Distributor Supervisor Required: No Accompanied by: Self / Same As Patient Allergies atorvastatin Allergy (Intermediate, Verified 12/01/24 13:13) elevated liver enzymes, elevated enzymes duloxetine [Cymbalta] Allergy (Intermediate, Verified 12/01/24 13:13) headache dapagliflozin [From [facility]] Adverse Reaction (Intermediate, Verified 12/01/24 13:13) Dizziness Medication List - Last Reconciled 12/01/24 by Yoli Padilla MD alclometasone 0.05% appl topical BID PRN amoxicillin-pot clavulanate 875-125 mg 1 tab PO BID 10 days azelastine-fluticasone 137-50 mcg/spray 1 spray intranasal BID blood sugar diagnostic (FreeStyle Lite Strips) 3 times a day blood-glucose meter (FreeStyle Lite Meter kit) As directed 3x/day calcium carbonate 500 mg PO BID 30 days cholecalciferol (vitamin D3) 25 mcg PO DAILY ciprofloxacin HCl 250 mg PO BID 10 days diclofenac sodium 1% 2 grams topical BID PRN empagliflozin (Jardiance) 25 mg PO DAILY 90 days evolocumab (Repatha Pushtronex) 420 mg (3.5 mL) subcut Q4W 90 days evolocumab (Repatha SureClick) 140 mg subcut Q2W 90 days ezetimibe 10 mg PO DAILY 90 days gabapentin 100 mg PO BEDTIME 30 days losartan 25 mg PO DAILY 90 days mecobalamin (vitamin B12) 1,000 mcg PO DAILY 90 days metformin 1,000 mg (2 x 500 mg) PO BID 90 days omeprazole 20 mg PO QAM PRN 90 days pyridoxine (vitamin B6) 100 mg PO DAILY 90 days repaglinide 1- 2 tabs prior to dinner PO daily; administer within 15 minutes of a meal or snack 30 days rosuvastatin 40 mg PO DAILY semaglutide (Ozempic) 2 mg (0.75 mL) subcut QWEEK 4 weeks tamsulosin (Flomax) 0.4 mg PO DAILY tizanidine 2 mg PO Q8H PRN 30 days tramadol 50 mg PO BID PRN 30 days tramadol 50 mg PO BID PRN ursodiol 300 mg PO BID Tobacco use date assessed: 11/13/24 Fall risk assessment: No Falls in past year Last assessed Fall Risk: 12/01/24 Dental Screening Dental Screen Date: 12/01/24 Did you have a dental visit in the last 12 months?: No Did you have a dental problem in the last 6 months where you did not have access to dental care?: No Was dental information given to patient?: Patient has dentist HPI HPI Comments History of Present Illness Details The patient is a 64-year-old female presenting with a follow-up on multiple chronic conditions including diabetes and dyslipidemia, as well as addressing recent abdominal pain. She reports her Hemoglobin A1c is currently at 7.4, and her cholesterol levels have been very well controlled. She currently is on antibiotic treatment due to CT scan performed on November 19 indicated acute diverticulitis. Additionally, she reports chronic issues with joint pain due to degenerative joint disease, which she mentions feels similar to sciatica. She has a past medical history suggestive of fatty liver and hypertension. LDL within goal. She also has moderate major depression that has been stable. [facility] Medical History (Updated 12/01/24 @ 13:58 by Yoli Padilla MD) Diverticulitis History of kidney stones Abdominal pain Tachycardia Renal cyst Chronic GERD Polyarthralgia Left shoulder pain Right foot pain Renal calculus, bilateral Mild major depression, single episode Morbid obesity with BMI of 40.0-44.9, adult Diabetes type 2, uncontrolled Iron deficiency anemia Osteopenia Left foot pain Postmenopausal Vitamin D deficiency Elevated LFTs Thyroid nodule Type 2 diabetes mellitus with other diabetic kidney complication Proteinuria Hyperlipidemia LDL goal <100 Obesity due to excess calories Essential hypertension Pure hypercholesterolemia Venous thrombosis of upper extremity Diabetes mellitus, type II Spondylosis, cervical Fatty liver Metatarsalgia Arthropathy of knee Surgical History H/O colonoscopy History of extraction of renal calculus History of removal of cyst History of shoulder surgery History of cholecystectomy History of total abdominal hysterectomy and bilateral salpingo-oophorectomy Status post rotator cuff repair Family History Father Stomach cancer Liver cancer Mother Myocardial infarct Diabetes CVD (cardiovascular disease) Sister Cervical cancer Brother Murder Social History Household Members: Children Housing: House Alcohol intake: never Patient Tobacco Use Status: Never used Tobacco e-Cigarette/Vaping Use: Never Used Second Hand Smoke Exposure: No service: No Current occupational status: disabled Current occupation: right handed Cognitive needs: Yes (Pt use a cane) Hearing needs: No Vision needs: No Questionnaire Thrive Questionnaire Date Thrive assessed: 11/06/24 HENRIETTA-7 AMB Questionnaire HENRIETTA-7 Date HENRIETTA - 7 assessed: 11/13/24 Source: Developed by Drs. Kostas Simeon, Mary Smith, Lb Barrett and colleagues, with an educational rachael from [employer]. Review of Systems Const All systems reviewed & are unremarkable except as noted in HPI and below ENT Denies change in voice, Denies nasal discharge and Denies sinus pain Card Denies chest pain at rest, Denies chest pain with activity, Denies edema, Denies irregular heart rhythm, Denies claudication, Denies dyspnea, Denies dyspnea on exertion, Denies orthopnea, Denies paroxysmal nocturnal dyspnea and Denies slow heart rate Resp Denies cough, Denies dyspnea and Denies dyspnea on exertion GI Denies abdominal pain, Denies change in bowel habits, Denies excessive flatus, Denies nausea and Denies vomiting Physical exam (Primary Care) Vital Signs: Last Vital Signs BP 120/82 12/01/24 13:07 BMI result Body Mass Index 35.9 BMI Assessment/Plan discussion: High BMI High, discussed plan: lifestyle, weight reduction, dietary and physical activity Tobacco/Smoking Status: Tobacco use Status Tobacco use date assessed 11/13/24 12/01/24 13:04 Patient Tobacco Use Status Never used Tobacco 12/01/24 13:04 e-Cigarette/Vaping Use Never Used 12/01/24 13:04 Thrive Assessment: Date of Thrive Assessment Date Thrive assessed 11/06/24 12/01/24 13:04 Resp Effort & Inspection: normal respiratory effort Auscultation: clear to auscultation bilaterally Cardio Jugular venous distension: no JVD Rate: regular rate Rhythm: regular rhythm Heart sounds: S1 normal heart sound present and S2 normal heart sound present Extrem General: Yes full ROM Results AMB Hemoglobin A1c AMB Hemoglobin A1c 7.4 % Last Edit by ALFONSO Mims on 12/01/24 13:17 Results Reviewed Results Reviewed: Laboratory Last Values Hgb A1c (Clinic) 7.4 % (4.0-6.0) H 12/01/24 13:01 Coding Level of Care Code Est Pt Level 4 (21262) Complex EM visit Add On G2211 Diagnoses Type 2 diabetes mellitus with hyperglycemia, without long-term current use of insulin E11.65 Diabetes mellitus terminal gauger supervisor insulin use: without terminal gauger supervisor use Diabetes mellitus complication status: with hyperglycemia MDD (major depressive disorder), recurrent episode, moderate F33.1 Essential hypertension I10 Vitamin D deficiency E55.9 Hyperlipidemia LDL goal <70 E78.5 Diverticulitis K57.92 Time Spent (min) 24 Assessment & Plan Assessment & Plan (1) Diabetes mellitus, type II: Code(s): E11.9 - Type 2 diabetes mellitus without complications Category: Medical Qualifiers: Diabetes mellitus terminal gauger supervisor insulin use: without terminal gauger supervisor use Diabetes mellitus complication status: with hyperglycemia Qualified Code(s): E11.65 - Type 2 diabetes mellitus with hyperglycemia (2) MDD (major depressive disorder), recurrent episode, moderate: Code(s): F33.1 - Major depressive disorder, recurrent, moderate Category: Medical (3) Essential hypertension: Code(s): I10 - Essential (primary) hypertension Category: Medical (4) Vitamin D deficiency: Code(s): E55.9 - Vitamin D deficiency, unspecified Category: Medical (5) Hyperlipidemia LDL goal <70: Code(s): E78.5 - Hyperlipidemia, unspecified Category: Medical (6) Diverticulitis: Code(s): K57.92 - Diverticulitis of intestine, part unspecified, without perforation or abscess without bleeding Category: Medical Plan Monitoring and maintaining stable Hemoglobin A1c is a priority in managing her diabetes. Her cholesterol appears well-managed with the current regimen including atorvastatin and Repatha, underscoring the importance of regular follow-ups. For her recent episode of diverticulitis, dietary modifications and awareness for symptoms of recurrence were discussed. The mildly elevated liver enzymes require regular follow-ups with liver function tests due to potential medication contributions or fatty liver changes. 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 Patient was informed and verbally consented to the use of an ambient scribe for clinic note documentation during this visit. During our discussions, we reviewed her current management of Type 2 Diabetes Mellitus, where I outlined the importance of maintaining dietary changes and activity levels to target an A1c of under 7. For cholesterol management, I explained the efficacy of atorvastatin and Repatha in maintaining optimal lipid levels. We reviewed the potential for recurrent diverticulitis and emphasized preventive strategies including dietary fiber. I informed the patient about the mildly elevated liver enzymes being likely attributable to her medication regimen, advising for regular testing. To address joint pain from degenerative joint disease, I discussed continuing with her current pain management plan and suggested physical therapy as a supportive option. I addressed her medication regimen and confirmed the effectiveness of her adherence to it, along with the importance of frequent reassessment for potential side effects. Orders: Orders AMB Hemoglobin A1c Today E11.29 - Type 2 diabetes mellitus with other diabetic kidney complication Patient Instructions: - Continue diabetes medication and monitor blood sugar regularly. - Adhere to cholesterol injection schedule every two weeks. - Follow dietary guidelines to increase fiber intake to manage diverticulitis symptoms. - Maintain regular follow-up with liver function tests to monitor enzyme levels. - Report any severe abdominal or persistent joint pain. - Ensure comprehensive management of all chronic conditions with periodic reviews.
[2024-12-01 13:07] VITALS: BP 120/82; BMI 35.9
--- OUTSIDE RECORDS SUMMARY | 2024-12-01 14:50 | XMS_ITS | Encounter Summary ---
Author Organization [facility] Address [address] [place] [address] Phone Care Team Providers Care Safe Deposit Attendant Name Role Phone Yoli Townsend MD Primary Care Provider Encounter Details Date Type Department Care Team (Late st Contact Info) Description 09/27/2023 Documentation Only [facility] [address] [place] [address] Liliya Pérez [address] [place] [address] Social History Tobacco Use Types [...] [facility] [address] [place] [address] Chester Ventura MD [address] [place] [address] [place] [address] documented as of this encounter Visit Diagnoses Not on filedocumented in this encounter Care Teams Safe Deposit Attendant Relationship Specialty Start Date End Date Yoli Townsend MD [address] [place], [place] PCP - General 06/09/19 documented as of this encounter
--- OUTSIDE RECORDS SUMMARY | 2024-12-01 14:50 | XMS_ITS | Encounter Summary ---
Author Organization [facility] Address [address] [place] [address] Phone Care Team Providers Care Competitive Intelligence Manager Name Role Phone Yoli Townsend MD Primary Care Provider [phone] Encounter Details Date Type Department Care Team (Late Contact Info) Description 06/10/2023 Documentation Only [facility] Dr [address] [place] [address] Chester Ventura MD [address] [place] [address] [place] [address] Social History Tobacco Use Types [...] Visit [facility] [address] [facility] [place] [place] [address] Chester Ventura MD [address] [facility] [place] [address] documented as of this encounter Visit Diagnoses Not on filedocumented in this encounter Care Teams Competitive Intelligence Manager Relationship Specialty Start Date End Date Yoli Townsend MD [address] [place], [place] PCP - General 06/09/19 documented as of this encounter
--- OUTSIDE RECORDS SUMMARY | 2024-12-01 14:50 | XMS_ITS | Encounter Summary ---
Author Organization [facility] Address [address] [place] [address] Phone Care Team Providers Care Deburr Technician Name Role Phone Yoli Townsend MD Primary Care Provider [phone] Encounter Details Date Type Department Care Team (Late Contact Info) Description 06/12/2023 Documentation Only [facility] [address] [place] [address] Chester Ventura MD [address] [place] [address] [place] [address] Social History Tobacco Use Types [...] Visit [facility] [address] [place] [address] Chester Ventura MD [address] [place] [address] [place] [address] documented as of this encounter Visit Diagnoses Not on filedocumented in this encounter Care Teams Deburr Technician Relationship Specialty Start Date End Date Yoli Townsend MD [address] [place], [place] PCP - General 06/09/19 documented as of this encounter
--- OUTSIDE RECORDS SUMMARY | 2024-12-01 14:50 | XMS_ITS | Encounter Summary ---
Author Organization [facility] Address [address] [facility] [address] [place] [address] Care Team Providers Care Corporate Job Titles Name Role Phone Unavailable Primary Care Provider [...]
--- OUTSIDE RECORDS SUMMARY | 2024-12-01 14:50 | XMS_ITS | Encounter Summary ---
Author Organization [facility] Address [address] [place] [address] Phone Care Team Providers Care Reo Asset Manager Name Role Phone Yoli Townsend MD Primary Care Provider [phone] Encounter Details Date Type Department Care Team (Late Contact Info) Description 11/30/2022 Documentation Only [facility] Dr [address] [place] [address] Chester Ventura MD [address] [place] [address] [place] [address] Social History Tobacco Use Types [...] Visit [facility] [address] [place] [address] Chester Ventura MD [address] [facility] [place] [address] documented as of this encounter Visit Diagnoses Not on filedocumented in this encounter Care Teams Reo Asset Manager Relationship Specialty Start Date End Date Yoli Townsend MD [address] [place], [place] PCP - General 06/09/19 documented as of this encounter
--- OUTSIDE RECORDS SUMMARY | 2024-12-01 14:50 | XMS_ITS | Encounter Summary ---
Author Organization [facility] Address [address] [place] [address] Phone Care Team Providers Care Retail Service Representative Name Role Phone Yoli Townsend MD Primary Care Provider Encounter Details Date Type Department Care Team (Late st Contact Info) Description 09/27/2023 Documentation Only [facility] [address] [place] [address] Liliya Pérez [address] [place] [address] Social History Tobacco Use Types [...] Visit [facility] [address] [place] [address] Chester Ventura MD [address] [place] [address] [place] [address] documented as of this encounter Visit Diagnoses Not on filedocumented in this encounter Care Teams Retail Service Representative Relationship Specialty Start Date End Date Yoli Townsend MD [address] [place], [place] PCP - General 06/09/19 documented as of this encounter
--- OUTSIDE RECORDS SUMMARY | 2024-12-01 14:50 | XMS_ITS | Encounter Summary ---
Author Organization [facility] Address [address] [place] [address] Phone Care Team Providers Care Satellite Dish Technician Name Role Phone Yoli Townsend MD Primary Care Provider Encounter Details Date Type Department Care Team (Late Contact Info) Description 12/04/2022 Documentation Only [facility] [address] [place] [address] Chester Ventura MD [address] [place] [address] [place] [address] Social History Tobacco Use Types [...] Visit [facility] [address] [place] [place] [address] Chester Ventura MD [address] [place] [address] [place] [address] documented as of this encounter Visit Diagnoses Not on filedocumented in this encounter Care Teams Satellite Dish Technician Relationship Specialty Start Date End Date Yoli Townsend MD [address] [place], [place] PCP - General 06/09/19 documented as of this encounter
--- OUTSIDE RECORDS SUMMARY | 2024-12-01 14:50 | XMS_ITS | Clinical Summary ---
Author Organization [facility], Address [address] [place] [address] [place] [address] Phone Care Team Providers Care Manager Of Marketing Name Role Phone Yoli Townsend MD Primary Care Provider Allergies Active Allergy Reactions Criticality Noted Date [...] 0 Active ergocalciferol (VITAMIN D2) 1.25 MG (52000 UT) capsule TOME 1 CAPSULA POR VIA [...] Hypertension Father Diabetes Mother Heart disease Mother ND Hypertension Mother Cancer Sister Relation Status Comments [...] Visit [facility], [address] [place] [address] Chester Ventura MD [address] [place] [place] [address] Health Maintenance Due Date Last Done Comments [...] PM EDT) Hemoglobin A1C 8.1(H) (4-6) % [place] [id number] Comment: HEMOGLOBIN A1C(%) ?? GLUCOSE CONTROL INDEX ?<6% ? EXCELLENT ?6-7% ?VERY GOOD ?7-8% ?GOOD ?8-10% ? FAIR ?>10% ?POOR Hemoglobin (Hb) A1c testing is performed by Lary Roselyn-quant immunoassay. Any cause of shortened erythrocyte survival will reduce exposure of erythrocytes to glucose with a consequent decrease in Hb A1c (%). Testing performed or reported by ~[facility], ~a Service of [facility], ~[address], [place] [address]~ 02/09/2019 3:56 PM EDT us Chester Ventura MD LAB BLOOD ORDERABLES Final Resul t [id number] from Last 3 Months or Most Recently Relevant to Health Maintenance Insurance [facility] [employer] Care Teams Manager Of Marketing Relationship Specialty Start Date End Date Yoli Townsend MD [address] [place] [address] PCP - General 06/09/19
--- OUTSIDE RECORDS SUMMARY | 2024-12-01 14:50 | XMS_ITS | Encounter Summary ---
Author Organization [facility] Address [address] [facility] [address] 7t [place] [address] Care Team Providers Care Hoop Expander Name Role Phone Unavailable Primary Care Provider Unavailabl e Encounter Details Date Type Department Care Team (Latest Contact Info) Description 11/22/2021 Abstract [facility] CONVERSIONS Dental, Provider, DDS Social History Tobacco [...]
--- OUTSIDE RECORDS SUMMARY | 2024-12-01 14:50 | XMS_ITS | Encounter Summary ---
Author Organization [facility], Address [address] [place] [address] Phone Care Team Providers Care Painting Department Supervisor Name Role Phone Yoli Townsend MD Primary Care Provider [phone] Reason for Visit * Reason Comments Med Refill Encounter Details Date Type Department Care Team (Late Contact Info) Description 02/18/2020 Refill [facility] [address] [place] [address] Chester Ventura MD [address] [place] [address] Social History Tobacco Use Types [...] Visit [facility] [place], [address] [place] [address] Chester Ventura MD [address] [place] [address] documented as of this encounter Visit Diagnoses Not on filedocumented in this encounter Care Teams Painting Department Supervisor Relationship Specialty Start Date End Date Yoli Townsend MD [address] [place] PCP - General 06/09/19 documented as of this encounter
--- OUTSIDE RECORDS SUMMARY | 2024-12-01 14:50 | XMS_ITS | Encounter Summary ---
Author Organization [facility] Address [address] [place] [address] Phone Care Team Providers Care Youth Teacher Name Role Phone Yoli Townsend MD Primary Care Provider [phone] Encounter Details Date Type Department Care Team (Late Contact Info) Description 06/18/2022 Documentation Only [facility] [address] [place] [address] Chester Ventura MD [address] [place] [address] [place] [address] Social History Tobacco Use Types [...] Services Of [address] [place] [address] Chester Ventura MD [address] [place] [address] [place] [address] documented as of this encounter Visit Diagnoses Not on filedocumented in this encounter Care Teams Youth Teacher Relationship Specialty Start Date End Date Yoli Townsend MD [address] [place], [place] PCP - General 06/09/19 documented as of this encounter
--- OUTSIDE RECORDS SUMMARY | 2024-12-01 14:50 | XMS_ITS | Encounter Summary ---
Author Organization [facility] Address [address] [place] [address] Phone Care Team Providers Care Director Of Operations For Therapy Name Role Phone Yoli Townsend MD Primary Care Provider [phone] Encounter Details Date Type Department Care Team (Late Contact Info) Description 02/21/2022 Documentation Only [facility] [address] [place] [address] Chester Ventura MD [address] [place] [address] [place] [address] Social History Tobacco Use Types [...] Visit [facility] [address] [place] [address] Chester Ventura MD [address] [place] [address] [place] [address] documented as of this encounter Visit Diagnoses Not on filedocumented in this encounter Care Teams Director Of Operations For Therapy Relationship Specialty Start Date End Date Yoli Townsend MD [address] [place], [place] PCP - General 06/09/19 documented as of this encounter
--- OUTSIDE RECORDS SUMMARY | 2024-12-01 14:50 | XMS_ITS | Encounter Summary ---
Author Organization [facility] Address [address] [place] [address] Phone Care Team Providers Care Senior Logistics Manager Name Role Phone Yoli Townsend MD Primary Care Provider [phone] Encounter Details Date Type Department Care Team (Late st Contact Info) Description 06/23/2024 Office Communication [facility] Dr [address] [place] [address] Chester Ventura MD [address] [place] [address] [place] [address] Social History Tobacco Use Types [...] Visit [facility] [address] [place] [address] Chester Ventura MD [address] [address] [place] [address] documented as of this encounter Visit Diagnoses Not on filedocumented in this encounter Care Teams Senior Logistics Manager Relationship Specialty Start Date End Date Yoli Townsend MD [address] [place], [place] PCP - General 06/09/19 documented as of this encounter
--- OUTSIDE RECORDS SUMMARY | 2024-12-01 14:50 | XMS_ITS | Encounter Summary ---
Author Organization [facility] Address [address] [place] [address] Phone Care Team Providers Care Linux Systems Engineer Name Role Phone Yoli Townsend MD Primary Care Provider [phone] Encounter Details Date Type Department Care Team (Late st Contact Info) Description 10/07/2023 Documentation Only [facility] [address] [place] [address] Liliya Pérez [address] [place] [address] Social History Tobacco Use Types [...] [facility] [address] [place] [address] Chester Ventura MD [address] [place] [address] [place] [address] documented as of this encounter Visit Diagnoses Not on filedocumented in this encounter Care Teams Linux Systems Engineer Relationship Specialty Start Date End Date Yoli Townsend MD [address] [place], [place] PCP - General 06/09/19 documented as of this encounter
--- OUTSIDE RECORDS SUMMARY | 2024-12-01 14:50 | XMS_ITS | Encounter Summary ---
Author Organization [facility], Address [address] [place] [address] Phone Care Team Providers Care Bowl Attendant Name Role Phone Yoli Townsend MD Primary Care Provider [phone] Reason for Visit * Reason Comments Med Refill Encounter Details Date Type Department Care Team (Late Contact Info) Description 02/17/2020 Refill [facility] [address] [place] [address] Chester Ventura MD [address] [facility] [place] [address] Social History Tobacco Use Types [...] Visit [facility] [place], [address] [facility] [place] [address] Chester Ventura MD [address] [facility] [place] [address] documented as of this encounter Visit Diagnoses Not on filedocumented in this encounter Care Teams Bowl Attendant Relationship Specialty Start Date End Date Yoli Townsend MD [address] [place] PCP - General 06/09/19 documented as of this encounter
--- OUTSIDE RECORDS SUMMARY | 2024-12-01 14:50 | XMS_ITS | Encounter Summary ---
Author Organization [facility] Address [address] [place] [address] Phone Care Team Providers Care Kick Plate Installer Name Role Phone Yoli Townsend MD Primary Care Provider [phone] Encounter Details Date Type Department Care Team (Late Contact Info) Description 12/04/2022 Documentation Only [facility] [address] [place] [address] Chester Ventura MD [address] [place] [address] [place] [address] Social History Tobacco Use Types [...] Visit [facility] [address] [place] [address] Chester Ventura MD [address] [place] [address] [place] [address] documented as of this encounter Visit Diagnoses Not on filedocumented in this encounter Care Teams Kick Plate Installer Relationship Specialty Start Date End Date Yoli Townsend MD [address] [place], [place] PCP - General 06/09/19 documented as of this encounter
--- OUTSIDE RECORDS SUMMARY | 2024-12-01 14:50 | XMS_ITS | Encounter Summary ---
Author Organization [facility] Address [address] [place] [address] Phone Care Team Providers Care Orthotic/Prosthetic Practitioner Name Role Phone Yoli Townsend MD Primary Care Provider [phone] Encounter Details Date Type Department Care Team (Late Contact Info) Description 06/12/2023 Documentation Only [facility] Dr [address] [place] [address] Chester Ventura MD [address] [place] [address] [place] [address] Social History Tobacco Use Types [...] Visit [facility] [address] [place] [place] [address] Chester Ventura MD [address] [facility] [place] [address] documented as of this encounter Visit Diagnoses Not on filedocumented in this encounter Care Teams Orthotic/Prosthetic Practitioner Relationship Specialty Start Date End Date Yoli Townsend MD [address] [place], [place] PCP - General 06/09/19 documented as of this encounter
--- OUTSIDE RECORDS SUMMARY | 2024-12-01 14:50 | XMS_ITS | Encounter Summary ---
Author Organization [facility] Address [address] [place] [address] Phone Care Team Providers Care Farm Equipment Mechanic Apprentice Name Role Phone Yoli Townsend MD Primary Care Provider [phone] Encounter Details Date Type Department Care Team (Late st Contact Info) Description 10/08/2023 Documentation Only [facility] [address] [place] [address] Liliya Pérez [address] [place] [address] Social History Tobacco Use Types [...] Visit [facility] [address] [place] [address] Chester Ventura MD [address] [place] [address] [place] [address] documented as of this encounter Visit Diagnoses Not on filedocumented in this encounter Care Teams Farm Equipment Mechanic Apprentice Relationship Specialty Start Date End Date Yoli Townsend MD [address] [place], [place] PCP - General 06/09/19 documented as of this encounter
--- OUTSIDE RECORDS SUMMARY | 2024-12-01 14:50 | XMS_ITS | Encounter Summary ---
Author Organization [facility] Address [address] [place] [address] Phone Care Team Providers Care Tester Printed Circuit Boards Name Role Phone Yoli Townsend MD Primary Care Provider Encounter Details Date Type Department Care Team (Late Contact Info) Description 06/01/2022 Documentation Only [facility] [address] [place] [address] Chester Ventura MD [address] [place] [address] [place] [address] Social History Tobacco Use Types [...] Visit [facility] [address] [place] [address] Chester Ventura MD [address] [place] [address] [place] [address] documented as of this encounter Visit Diagnoses Not on filedocumented in this encounter Care Teams Tester Printed Circuit Boards Relationship Specialty Start Date End Date Yoli Townsend MD [address] [place], [place] PCP - General 06/09/19 documented as of this encounter
--- OUTSIDE RECORDS SUMMARY | 2024-12-01 14:50 | XMS_ITS | Encounter Summary ---
Author Organization [facility] Address [address] [place] [address] Phone Care Team Providers Care Social Group Worker Name Role Phone Yoli Townsend MD Primary Care Provider [phone] Encounter Details Date Type Department Care Team (Late Contact Info) Description 06/06/2022 Documentation Only [facility] [address] [place] [address] Chester Ventura MD [address] [place] [address] [place] [address] Social History Tobacco Use Types [...] Visit [facility] [address] [place] [address] Chester Ventura MD [address] [place] [address] [place] [address] documented as of this encounter Visit Diagnoses Not on filedocumented in this encounter Care Teams Social Group Worker Relationship Specialty Start Date End Date Yoli Townsend MD [address] [place], [place] PCP - General 06/09/19 documented as of this encounter
--- OUTSIDE RECORDS SUMMARY | 2024-12-01 14:50 | XMS_ITS | Clinical Summary ---
Author Organization [facility] Address [address] [place] [address] 7t [place] [address] Care Team Providers Care Eye Care Professional Name Role Phone Unavailable Primary Care Provider [...]
== END 2024-12-01 13:35 | disposition home or self-care (01) ==
LOC: HO.HMCH 12:57
PROVIDERS: PCP Internal Medicine; Visit Provider Internal Medicine
DX: E11.65 Type 2 diabetes mellitus with hyperglycemia (principal); F33.1 Major depressive disorder, recurrent, moderate; I10 Essential (primary) hypertension; E55.9 Vitamin D deficiency, unspecified; E78.5 Hyperlipidemia, unspecified; K57.92 Diverticulitis of intestine, part unspecified, without perforation or abscess without bleeding; E11.29 Type 2 diabetes mellitus with other diabetic kidney complication

== ENCOUNTER → 2024-12-01 12:56 | Outpatient (BNVA) | payer OTHER, SELFPAY | PROVIDERS: PCP Internal Medicine; Visit Provider Internal Medicine | DX: E11.65 Type 2 diabetes mellitus with hyperglycemia (principal); F33.1 Major depressive disorder, recurrent, moderate; I10 Essential (primary) hypertension; E55.9 Vitamin D deficiency, unspecified; E78.5 Hyperlipidemia, unspecified; K57.92 Diverticulitis of intestine, part unspecified, without perforation or abscess without bleeding | CPT/HCPCS: 83036; 99212 ==

== ENCOUNTER 2024-12-23 08:54 | Outpatient (REF) | payer OTHER, SELFPAY ==
[2024-12-23 09:20] LABS: MANUAL DIFF FLAG NO
[2024-12-23 09:49] LABS: Basophils Percent Auto 0.3 % (0-2); Eosinophils Absolute Auto 0.1 X10*3/uL (0.0-0.4); Eosinophils Percent Auto 0.7 % (0-4); Hematocrit 44.9 % (37.0-47.0); Hemoglobin 15.1 g/dl (12.0-16.0); Imm Gran Abs Auto 0.01 X10*3/uL (0.00-0.03); Imm Gran Pct Auto 0.1 % (0.0-0.4); Lymphocytes Absolute Auto 2.9 X10*3/uL (1.2-4.9); Lymphocytes Percent Auto 41.9 % (20-40); Mean Corpuscular HGB Conc 33.6 g/dl (31.0-35.0); Mean Corpuscular Hemoglobin 29.3 pg (27.0-33.0); Mean Corpuscular Volume 87.2 fL (80.0-98.0); Mean Platelet Volume 9.3 fL (9.4-12.3); Monocytes Absolute Auto 0.4 X10*3/uL (0.1-1.2); Monocytes Percent Auto 6.3 % (2-11); Neutrophils Absolute Auto 3.5 x10*3/uL (2.0-8.3); Neutrophils Percent Auto 50.7 % (45-73); Platelet Count 196 X10*3/uL (160-400); Red Blood Count 5.15 X10*6/uL (4.20-5.50); Red Cell Distribution Width 13.4 % (11.0-16.0); White Blood Count 6.8 X10*3/uL (4.8-10.8)
[2024-12-23 11:00] LABS: Appearance Urine Clear; Color Urine Yellow; Glucose Urine UA >=1000 mg/dL (Negative); Leukocyte Esterase Urine Trace (Negative); Nitrite Urine Negative (Negative); PH 5.5 (5.0-9.0); Specific Gravity - Urine >= 1.030 (1.005-1.025); UMIC TRIGGER UA YES; Urine Blood Negative (Negative); Urine Ketones Trace mg/dL (Negative); Urine Protein Trace mg/dL (Neg-Trace)
[2024-12-23 11:05] LABS: Creatinine Urine 92.19 mg/dL
[2024-12-23 11:07] LABS: Bacteria Urine None Seen (None Seen); Hyaline Casts Urine 0-2 /LPF (0-2); RBC Urine 0-2 /HPF (0-2); WBC Urine 21-50 /HPF (0-5)
[2024-12-23 11:36] LABS: Alanine Aminotransferase 27 U/L (0-31); Albumin Level 4.4 g/dL (3.5-5.0); Alkaline Phosphatase 96 U/L (39-117); Anion Gap 11 (12-20); Aspartate Amino Transferase 29 U/L (5-31); Bilirubin Direct 0.2 mg/dL (0.0-0.5); Bilirubin Total 0.5 mg/dL (0.0-1.0); Blood Urea Nitrogen 14 mg/dL (9-16); Calcium 9.5 mg/dL (8.4-10.2); Carbon Dioxide 28 mmol/L (22-29); Chloride 104 mmol/L (96-108); Estimated Glomerular Filt Rate > 60; Potassium 3.8 mmol/L (3.3-5.1); Sodium 139 mmol/L (135-145); Total Protein 7.7 g/dL (6.5-8.0)
[2024-12-23 12:02] LABS: Vitamin B12 818 pg/mL (200-900)
[2024-12-23 12:06] LABS: Alanine Aminotransferase 26 U/L (0-31); Albumin Level 4.3 g/dL (3.5-5.0); Alkaline Phosphatase 96 U/L (39-117); Anion Gap 13 (12-20); Aspartate Amino Transferase 28 U/L (5-31); Bilirubin Total 0.5 mg/dL (0.0-1.0); Blood Urea Nitrogen 14 mg/dL (9-16); Calcium 9.4 mg/dL (8.4-10.2); Carbon Dioxide 26 mmol/L (22-29); Chloride 105 mmol/L (96-108); Cholesterol 130 mg/dL (<200); Estimated Glomerular Filt Rate > 60; Glucose Fasting 151 mg/dL (60-99); HDL Cholesterol 56 mg/dL (>40); LDL Cholesterol Calculated 55 mg/dL (<100); Potassium 3.8 mmol/L (3.3-5.1); Sodium 140 mmol/L (135-145); Total Protein 7.6 g/dL (6.5-8.0); Triglycerides 99 mg/dL (<150)
[2024-12-23 12:07] LABS: Vitamin D 25-OH Total 27.8 ng/mL (>30)
[2024-12-23 12:35] LABS: Vitamin D 25-OH Total 28.9 ng/mL (>30)
== END 2024-12-23 08:55 | disposition home or self-care (01) ==
LOC: HO.LAB 08:54
PROVIDERS: PCP Internal Medicine; Visit Provider Internal Medicine Nephrology
DX: N18.2 Chronic kidney disease, stage 2 (mild) (principal); E53.8 Deficiency of other specified B group vitamins; E78.5 Hyperlipidemia, unspecified; E55.9 Vitamin D deficiency, unspecified; E78.49 Other hyperlipidemia; E66.9 Obesity, unspecified
CPT/HCPCS: 36415; 80051; 80053; 80061; 80076; 81001; 82043; 82306; 82310; 82565; 82570; 82607; 82746; 84520; 85025

== ENCOUNTER 2025-01-11 11:50 | Outpatient (AMB) | payer OTHER, SELFPAY ==
--- NOTE | 2025-01-11 12:56 | AM.OFFWIN_ITS ---
Intake Vital Signs 01/11/25 13:00 Height 5 ft 1 in Weight 190 lb 1 oz BMI 35.9 BP 112/80 Blood Pressure Location Lt brachial Position Sitting Pulse 85 Pulse Source Pulse Oximeter Temp 98 F Temp Source Oral Pulse Oximetry (%) 93 Oxygen Delivery Method Room Air Intake Visit Reasons: EP-lt thigh & head rash Intake Note: Pt claims she has allergy, itchy skin in thighs, behind legs and above shoulders, feels like itching and tingling all over. Pt started having this since yesterday. Patient Tobacco Use Status: Never used Tobacco Allergies atorvastatin Allergy (Intermediate, Verified 01/11/25 12:59) elevated liver enzymes, elevated enzymes duloxetine [Cymbalta] Allergy (Intermediate, Verified 01/11/25 12:59) headache dapagliflozin [From Farga] Adverse Reaction (Intermediate, Verified 01/11/25 12:59) Dizziness HPI HPI Comments History of Present Illness Details 64 y/o Female patient who [facility] with c/o Dry and very itchy skin; Head/scalp, shoulders and Thighs since yesterday. [facility] Medical History (Updated 01/11/25 @ 13:28 by Brittni Hancock NP) Seborrheic dermatitis Diverticulitis History of kidney stones Abdominal pain Tachycardia Renal cyst Chronic GERD Polyarthralgia Left shoulder pain Right foot pain Renal calculus, bilateral Mild major depression, single episode Morbid obesity with BMI of 40.0-44.9, adult Diabetes type 2, uncontrolled Iron deficiency anemia Osteopenia Left foot pain Postmenopausal Vitamin D deficiency Elevated LFTs Thyroid nodule Type 2 diabetes mellitus with other diabetic kidney complication Proteinuria Hyperlipidemia LDL goal <100 Obesity due to excess calories Essential hypertension Pure hypercholesterolemia Venous thrombosis of upper extremity Diabetes mellitus, type II Spondylosis, cervical Fatty liver Metatarsalgia Arthropathy of knee Surgical History H/O colonoscopy History of extraction of renal calculus History of removal of cyst History of shoulder surgery History of cholecystectomy History of total abdominal hysterectomy and bilateral salpingo-oophorectomy Status post rotator cuff repair Family History Father Stomach cancer Liver cancer Mother Myocardial infarct Diabetes CVD (cardiovascular disease) Sister Cervical cancer Brother Murder Social History Household Members: Children Housing: House Alcohol intake: never Patient Tobacco Use Status: Never used Tobacco e-Cigarette/Vaping Use: Never Used Second Hand Smoke Exposure: No service: No Current occupational status: disabled Current occupation: right handed Cognitive needs: Yes (Pt use a cane) Hearing needs: No Vision needs: No Review of Systems Const All systems reviewed & are unremarkable except as noted in HPI and below Physical Exam Vital Signs: Last Vital Signs Temp 98 F 01/11/25 13:00 Pulse 85 01/11/25 13:00 BP 112/80 01/11/25 13:00 Pulse Ox 93 01/11/25 13:00 Oxygen Delivery Method Room Air 01/11/25 13:00 BMI result Body Mass Index 35.9 Const General: no acute distress Nutritional Appearance: overweight Orientation/consciousness: patient oriented x3 HEENT Head: Yes normocephalic Skin General skin exam: dry skin and erythema Rashes: rashes noted (Macular papular rash back of thighs) Hair: other (Dry Scalp with white patches. ) Neuro General: patient oriented x3 Psych Speech and movement: Normal speech and movement present Assessment & Plan Assessment & Plan (1) Seborrheic dermatitis: Code(s): L21.9 - Seborrheic dermatitis, unspecified Plan: Ordered Ketoconazole shampoo Moisturize skin with Aquaphor, cereva or Cethaphil. Take Benadryl OTC for itching. Medications: New ketoconazole 2% Apply 10 mL to wet scalp, lather, leave on 5 minutes, and rinse. Apply once a day for 8 weeks. 120 mL 0RF L21.9 - Seborrheic dermatitis, unspecified Coding Level of Care Code Est Pt Level 4 (39225) Diagnoses Seborrheic dermatitis L21.9 Time Spent (min) 20
[2025-01-11 13:00] VITALS: BP 112/80; PULSE 85; TEMP 36.6; O2SAT 93; BMI 35.9
--- OUTSIDE RECORDS SUMMARY | 2025-01-11 13:35 | XMS_ITS | Encounter Summary ---
Author Organization [facility] Address [address] [place] [address] Phone Care Team Providers Care Costing Analyst Name Role Phone Yoli Townsend MD Primary Care Provider [phone] Encounter Details Date Type Department Care Team (Late Contact Info) Description 06/18/2022 Documentation Only [facility] [address] [place] [address] Chester Ventura MD [address] [place] [address] [place] [address] Social History Tobacco Use Types [...] Care Team (Late st Contact Info) Description 06/22/2025 2:15 PM EST Office Visit [facility] [address] [place] [address] Chester Ventura MD [address] [place] [address] [place] [address] documented as of this encounter Visit Diagnoses Not on filedocumented in this encounter Care Teams Costing Analyst Relationship Specialty Start Date End Date Yoli Townsend MD [address] [place], [place] PCP - General 06/09/19 documented as of this encounter
== END 2025-01-11 14:32 | disposition home or self-care (01) ==
PROVIDERS: PCP Internal Medicine; Visit Provider Nurse Practitioner Family
DX: L21.9 Seborrheic dermatitis, unspecified (principal)

== ENCOUNTER → 2025-01-11 11:50 | Outpatient (BNVA) | payer OTHER, SELFPAY | PROVIDERS: PCP Internal Medicine; Visit Provider Nurse Practitioner Family | DX: L21.9 Seborrheic dermatitis, unspecified (principal) | CPT/HCPCS: 99212 ==

== ENCOUNTER 2025-01-15 10:45 | Outpatient (AMB) | payer OTHER, SELFPAY ==
--- NOTE | 2025-01-15 11:15 | A.OFFVIS_ITS ---
Intake Visit Reasons: kidney stones Intake Note: Patient presents to office today for kidney stones follow up * last seen 02-14-23 * Litho completed 06-19-23 Urology medications: Vitamin B6, Vitamin B12, Tamsulosin Blood thinners: none Realty Specialist Required: Yes Information Interpreted: non-clinical & clinical Accompanied by: Self / Same As Patient Allergies atorvastatin Allergy (Intermediate, Verified 01/15/25 11:17) elevated liver enzymes, elevated enzymes duloxetine [Cymbalta] Allergy (Intermediate, Verified 01/15/25 11:17) headache dapagliflozin [From Farxiga] Adverse Reaction (Intermediate, Verified 01/15/25 11:17) Dizziness HPI Comments Details: Kandice is a 62-year-old female who presents to the office for discussion of CT abdomen and pelvis results. 02/14/23-- The patient is a Nepalese speaking female with history of nephrolithiasis. certified multimedia journalist was present during the visit. She was last seen on 11/26/22. She states that she has a history of uric acid stones. She has been prescribed Vitamin B6 and potassium citrate in the past. States that she was told by her PCP to stop the potassium citrate since September. She is currently on Vitamin B6 100 mg. She has had previous 4 ESWL procedures in the past. She had a renal US--10/29/22-- bilateral renal cysts and stones. 24-hour urine [facility] the urine specimen. She states she completed urine test. The patient denies flank pain in the interim. CTAP results reviewed?01/21/23-- bilateral renal cysts with more on the left side. Multiple left renal stones, largest stone is 1 x 1.5 cm in the left upper pole. Evaluation today: UA: Blood-- 25 Dominic/uL, leukocytes: 70 Keo/uL. Bladder scan PVR: 39 mL. Plan: Will wait for 24-hour urine results, if not received then will reorder. Will correspond with PCP regarding contraindications for potassium citrate use in this patient. Continue vitamin B6 100 mg. FORMERLY [facility], [facility]–1983 Medical History Seborrheic dermatitis Diverticulitis History of kidney stones Abdominal pain Tachycardia Renal cyst Chronic GERD Polyarthralgia Left shoulder pain Right foot pain Renal calculus, bilateral Mild major depression, single episode Morbid obesity with BMI of 40.0-44.9, adult Diabetes type 2, uncontrolled Iron deficiency anemia Osteopenia Left foot pain Postmenopausal Vitamin D deficiency Elevated LFTs Thyroid nodule Type 2 diabetes mellitus with other diabetic kidney complication Proteinuria Hyperlipidemia LDL goal <100 Obesity due to excess calories Essential hypertension Pure hypercholesterolemia Venous thrombosis of upper extremity Diabetes mellitus, type II Spondylosis, cervical Fatty liver Metatarsalgia Arthropathy of knee Surgical History H/O colonoscopy History of extraction of renal calculus History of removal of cyst History of shoulder surgery History of cholecystectomy History of total abdominal hysterectomy and bilateral salpingo-oophorectomy Status post rotator cuff repair Family History Father Stomach cancer Liver cancer Mother Myocardial infarct Diabetes CVD (cardiovascular disease) Sister Cervical cancer Brother Murder Social History Household Members: Children Housing: House Alcohol intake: never Patient Tobacco Use Status: Never used Tobacco e-Cigarette/Vaping Use: Never Used Second Hand Smoke Exposure: No service: No Current occupational status: disabled Current occupation: right handed Cognitive needs: Yes (Pt use a cane) Hearing needs: No Vision needs: No Review of Systems Const All systems reviewed & are unremarkable except as noted in HPI and below Reports no additional complaints Eyes Reports no additional complaints ENT Reports no additional complaints Card Reports no additional complaints Resp Reports no additional complaints GI Reports no additional complaints Reports as per HPI Musc Reports no additional complaints Skin/Breast Reports system reviewed and no additional complaints, except as documented Neuro Reports no additional complaints Psych Reports no additional complaints Endo Reports no additional complaints Luis Manuel/Lymph Reports no additional complaints Aller/Immun Reports no additional complaints Results AMB Urinalysis, Automated UA Leukoctes 0 Keo/uL Last Edit by Arlene Lutz on 01/15/25 14:16 UA Nitrite Negative Last Edit by Arlene Lutz on 01/15/25 14:16 UA Urobilinogen 3.5 mg/dL Last Edit by Arlene Lutz on 01/15/25 14:16 UA Protein 0.3 mg/dL Last Edit by Arlene Lutz on 01/15/25 14:16 UA pH 6.0 Last Edit by Arlene Lutz on 01/15/25 14:16 UA Blood 10 Dominic/uL Last Edit by Arlene Lutz on 01/15/25 14:16 UA Specific [place] 1.015 Last Edit by Arlene Lutz on 01/15/25 14:16 UA Ketone Negative Last Edit by Arlene Lutz on 01/15/25 14:16 UA Bilirubin 0 mg/dL Last Edit by Arlene Lutz on 01/15/25 14:16 UA Glucose 60 mg/dL Last Edit by Arlene Lutz on 01/15/25 14:16 Results Reviewed Results Reviewed: Date of Service: 11/19/24 EXAMINATION: CT ABDOMEN AND PELVIS WITHOUT CONTRAST CLINICAL INFORMATION: Unspecified abdominal pain. COMPARISON: 01/21/2023. TECHNIQUE: Multidetector volumetric imaging was performed from the superior aspect of the liver through the pubic symphysis. Sagittal and coronal reformatted images were obtained on the technologist's workstation. This CT examination was performed using dose optimization techniques as appropriate, variously including the following: *Automated exposure control *Adjustment of mA and/or kV according to patient size (this includes techniques or standardized protocols for targeted exams where dose is matched to indication/reason for exam; i.e. extremities or head) *Use of iterative reconstruction technique FINDINGS: LUNG BASES: Lung bases are clear. Heart size is normal. GE junction is normal. There are no effusions. LIVER, GALLBLADDER, AND BILIARY TREE: Unenhanced liver is normal in size, contour, and appearance without focal lesion. No intrahepatic biliary dilatation. Mild prominence of the extrahepatic ducts measuring up to 1.5 cm is stable. Gallbladder is surgically absent. PANCREAS: Mild to moderate fatty atrophy. SPLEEN: Unenhanced spleen is normal. ADRENAL GLANDS: Unremarkable. KIDNEYS AND URETERS: Right kidney: No hydronephrosis or mass. There are cortical cysts, the largest in the upper pole measuring 4.3 x 3.3 cm. There are numerous tiny nonobstructing calculi in the lower pole regions measuring up to 3 mm. There is hyperattenuation of the renal pyramids suggesting medullary nephrocalcinosis. No ureteral dilatation. Left kidney: There is a large cyst in the mid to lower pole region measuring 12.5 x 11.8 x 12.0 cm. There are smaller cysts. There are stable dystrophic appearing calcifications in the upper pole dorsal region, unknown if this communicates with the collecting system. The larger more anterior calcification measures 2.0 cm in diameter. Stellate appearance. There are additional tiny nonobstructing calculi measuring up to 4 mm. No definite hydronephrosis or hydroureter. No definite masses. There is hyperattenuation of the renal pyramids suggesting medullary nephrocalcinosis. BLADDER: Decompressed. No abnormalities. GASTROINTESTINAL TRACT: The stomach, duodenum, and small bowel have a normal appearance. A normal appendix is visualized. The colon demonstrates a few scattered diverticula. No wall thickening. Normal course and caliber. There is a tiny amount of subtle inflammation surrounding a diverticulum in the sigmoid region (series 5, image 73) findings which could represent a mild case of acute diverticulitis. This is a very subtle finding. No rectal abnormality. ABDOMINAL WALL: No significant hernia is appreciated. LYMPH NODES: None enlarged. VASCULAR: Mild to moderate atheromatous calcification of the aorta and iliac arteries. No aneurysm. PELVIC VISCERA: There has been a hysterectomy. There are no adnexal masses. OSSEOUS STRUCTURES: There is no suspicious lytic or blastic bone lesion. There are very mild degenerative spinal changes. Normal SI joints. IMPRESSION: 1. Nonobstructing bilateral renal calculi. Stable dystrophic calculi in the left kidney. No hydronephrosis. Large left greater than right renal cysts. 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 Differential includes hypercalcemic states, medullary sponge kidney, RTA type I, and oxalosis. 2. Cholecystectomy. 3. Very subtle finding of possible mild acute diverticulitis of the proximal sigmoid colon as discussed. Assessment & Plan Assessment & Plan Orders: Orders AMB Urinalysis Automated Today N39.0 - Urinary tract infection, site not specified, R31.9 - Hematuria, unspecified, Z87.442 - Personal history of urinary calculi Coding
--- OUTSIDE RECORDS SUMMARY | 2025-01-15 11:49 | XMS_ITS | Encounter Summary ---
Author Organization [facility] Address [address] [place] [address] Phone Care Team Providers Care Paint Formulator Name Role Phone Yoli Townsend MD Primary Care Provider [phone] Encounter Details Date Type Department Care Team (Late Contact Info) Description 06/18/2022 Documentation Only [facility] [address] [place] [address] Chester Ventura MD [address] [place] [address] [place] [address] Social History Tobacco Use Types [...] [facility] [address] [place] [address] Chester Ventura MD [address] [place] [address] [place] [address] documented as of this encounter Visit Diagnoses Not on filedocumented in this encounter Care Teams Paint Formulator Relationship Specialty Start Date End Date Yoli Townsend MD [address] [place], [place] PCP - General 06/09/19 documented as of this encounter
== END 2025-01-15 12:03 | disposition home or self-care (01) ==
LOC: HO.HUSH 10:46
PROVIDERS: PCP Internal Medicine; Visit Provider Urology
DX: Z87.442 Personal history of urinary calculi (principal); N39.0 Urinary tract infection, site not specified; R31.9 Hematuria, unspecified

== ENCOUNTER → 2025-01-15 10:45 | Outpatient (BNVA) | payer OTHER, SELFPAY | PROVIDERS: PCP Internal Medicine; Visit Provider Urology | DX: N28.1 Cyst of kidney, acquired (principal); N20.0 Calculus of kidney | CPT/HCPCS: 81003; 99212 ==

== ENCOUNTER 2025-03-10 06:49 | Day surgery (SDC) | payer OTHER, SELFPAY ==
--- OUTSIDE RECORDS SUMMARY | 2025-01-19 12:46 | XMS_ITS | Encounter Summary ---
Author Organization [facility] Address [address] [place] [address] Phone Care Team Providers Care Plate Glass Grinder Name Role Phone Yoli Townsend MD Primary Care Provider [phone] Encounter Details Date Type Department Care Team (Late Contact Info) Description 06/18/2022 Documentation Only [facility] [address] [place] [address] Chester Ventura MD [address] [place] [address] [place] [address] Social History Tobacco Use Types [...] Visit [facility] [address] [place] [address] Chester Ventura MD [address] [place] [address] [place] [address] documented as of this encounter Visit Diagnoses Not on filedocumented in this encounter Care Teams Plate Glass Grinder Relationship Specialty Start Date End Date Yoli Townsend MD [address] [place], [place] PCP - General 06/09/19 documented as of this encounter
[2025-03-08 09:04] VITALS: BMI 35.9
--- NOTE | 2025-03-09 09:14 | HO.ANESPROP2 ---
Documented by User: Angelika Coyne NP 03/09/25 09:16 HPI - Anesthesia Eval Consult details Narrative: 64yo F for Left Lithotripsy ESW Anesthesia Pre-Procedure Meds Is the patient on any of the following meds?: GLP1/DPP4 and SGLT2 Inhib PMFSH Active Problems Active Problems: All Active Problems Seborrheic dermatitis (Acute) Diverticulitis (Acute) History of kidney stones (Acute) Abdominal pain (Acute) Tachycardia (Acute) Vaccine counseling (Acute) Physical exam (Acute) Familial hyperlipidemia (Acute) Left leg pain (Acute) Left otitis media (Acute) Disc degeneration, lumbar (Acute) Scoliosis of thoracolumbar spine (Acute) Spondylosis of lumbar region without myelopathy or radiculopathy (Acute) Arthritis of right hip (Acute) Low back pain (Acute) Acute right-sided low back pain with sciatica (Acute) Bursitis of left shoulder (Acute) Renal calculus, left (Acute) LUQ pain (Acute) Hyperlipidemia LDL goal <70 (Acute) Tendinitis of left rotator cuff (Acute) Bone spur of foot (Acute) Primary osteoarthritis, left shoulder (Acute) Stiffness of right hand, not elsewhere classified (Acute) Left shoulder pain (Acute) Pain of left scapula (Acute) Neck pain (Acute) Fibromyalgia (Acute) Diabetes mellitus, type II (Acute) Physical exam (Acute) Upper respiratory tract infection (Acute) Sciatica (Acute) Trigger finger, right middle finger (Acute) Renal cyst (Acute) MDD (major depressive disorder), recurrent episode, moderate (Acute) Flank pain (Acute) Lumbar spine pain (Acute) Seborrheic keratoses (Acute) Renal cyst (Acute) Chronic GERD (Acute) Polyarthralgia (Acute) Right foot pain (Acute) Renal calculus, bilateral (Acute) Iron deficiency anemia (Acute) Osteopenia (Acute) Postmenopausal (Acute) Type 2 diabetes mellitus with other diabetic kidney complication (Acute) Proteinuria (Acute) Essential hypertension (Acute) Hyperlipidemia LDL goal <100 (Acute) Obesity due to excess calories (Acute) Vitamin D deficiency (Acute) Pure hypercholesterolemia (Acute) Past Medical History Medical History Seborrheic dermatitis Diverticulitis History of kidney stones Abdominal pain Tachycardia Renal cyst Chronic GERD Polyarthralgia Left shoulder pain Right foot pain Renal calculus, bilateral Mild major depression, single episode Morbid obesity with BMI of 40.0-44.9, adult Diabetes type 2, uncontrolled Iron deficiency anemia Osteopenia Left foot pain Postmenopausal Vitamin D deficiency Elevated LFTs Thyroid nodule Type 2 diabetes mellitus with other diabetic kidney complication Proteinuria Hyperlipidemia LDL goal <100 Obesity due to excess calories Essential hypertension Pure hypercholesterolemia Venous thrombosis of upper extremity Diabetes mellitus, type II Spondylosis, cervical Fatty liver Metatarsalgia Arthropathy of knee Family History Family History Father Stomach cancer Liver cancer Mother Myocardial infarct Diabetes CVD (cardiovascular disease) Sister Cervical cancer Brother Murder Family history of problems with anesthesia: No Surgical History Surgical History H/O colonoscopy History of extraction of renal calculus History of removal of cyst History of shoulder surgery History of cholecystectomy History of total abdominal hysterectomy and bilateral salpingo-oophorectomy Status post rotator cuff repair History of Problems with Anesthesia: No Social History Social History Household Members: Children Housing: House Alcohol intake: never Patient Tobacco Use Status: Never used Tobacco e-Cigarette/Vaping Use: Never Used Second Hand Smoke Exposure: No Use of substances other than those prescribed or required for medical reasons: No Advance Directives: No Advance Directives Information Provided: Yes service: No Current occupational status: disabled Current occupation: right handed Cognitive needs: Yes (Pt use a cane) Hearing needs: No Vision needs: No Meds Allergies Allergy/AdvReac Type Severity Reaction Status Date / Time atorvastatin Allergy Intermediate elevated Verified 01/15/25 11:17 liver enzymes, elevated enzymes duloxetine (Cymbalta) Allergy Intermediate headache Verified 01/15/25 11:17 dapagliflozin (From Farxiga) AdvReac Intermediate Dizziness Verified 01/15/25 11:17 Home Medications ?Medication ?Instructions ?Recorded ?Confirmed ?Last Taken ?Type ursodiol 300 mg capsule 300 mg PO BID 05/04/20 12/01/24 Unknown History alclometasone 0.05 % topical cream appl topical BID PRN 01/30/22 12/01/24 Unknown History Exam Height,Weight and Vital Signs: Height 5 ft 1 in Weight 86.183 kg Pertinent Lab Results Pertinent Lab Results: Laboratory Tests 12/23/24 09:19 WBC 6.8 Hgb 15.1 Hct 44.9 Plt Count 196 Sodium 140 Potassium 3.8 Chloride 105 Carbon Dioxide 26 BUN 14 Creatinine 0.75 Assessment and Plan Assessment Anesthesia Assessment: Chart Reviewed Final Anesthetic Review Family History of Problems with Anesthesia: No History of Problems with Anesthesia: No Documented by User: Lars Luong MD 03/10/25 08:49 PMFSH Past Medical History Medical History Seborrheic dermatitis Diverticulitis History of kidney stones Abdominal pain Tachycardia Renal cyst Chronic GERD Polyarthralgia Left shoulder pain Right foot pain Renal calculus, bilateral Mild major depression, single episode Morbid obesity with BMI of 40.0-44.9, adult Diabetes type 2, uncontrolled Iron deficiency anemia Osteopenia Left foot pain Postmenopausal Vitamin D deficiency Elevated LFTs Thyroid nodule Type 2 diabetes mellitus with other diabetic kidney complication Proteinuria Hyperlipidemia LDL goal <100 Obesity due to excess calories Essential hypertension Pure hypercholesterolemia Venous thrombosis of upper extremity Diabetes mellitus, type II Spondylosis, cervical Fatty liver Metatarsalgia Arthropathy of knee Family History Family History Father Stomach cancer Liver cancer Mother Myocardial infarct Diabetes CVD (cardiovascular disease) Sister Cervical cancer Brother Murder Surgical History Surgical History H/O colonoscopy History of extraction of renal calculus History of removal of cyst History of shoulder surgery History of cholecystectomy History of total abdominal hysterectomy and bilateral salpingo-oophorectomy Status post rotator cuff repair Social History Social History Household Members: Children Housing: House Alcohol intake: never Patient Tobacco Use Status: Never used Tobacco e-Cigarette/Vaping Use: Never Used Second Hand Smoke Exposure: No Use of substances other than those prescribed or required for medical reasons: No Advance Directives: No Advance Directives Information Provided: Yes service: No Current occupational status: disabled Current occupation: right handed Cognitive needs: Yes (Pt use a cane) Hearing needs: No Vision needs: No Meds Allergies Allergy/AdvReac Type Severity Reaction Status Date / Time atorvastatin Allergy Intermediate elevated Verified 01/15/25 11:17 liver enzymes, elevated enzymes duloxetine (Cymbalta) Allergy Intermediate headache Verified 01/15/25 11:17 dapagliflozin (From Farga) AdvReac Intermediate Dizziness Verified 01/15/25 11:17 Home Medications ?Medication ?Instructions ?Recorded ?Confirmed ?Last Taken ?Type ursodiol 300 mg capsule 300 mg PO BID 05/04/20 12/01/24 Unknown History alclometasone 0.05 % topical cream appl topical BID PRN 01/30/22 12/01/24 Unknown History Exam Airway Mallampati Class: II TM Dist: <=3cm Neck ROM: Full Loose/Missing/Broken Teeth: Yes and Lower Heart: ok Lungs: ok Assessment and Plan Assessment Anesthesia Assessment: Anesthesia Plan Discussed Final Anesthetic Review NPO: Yes ASA Class: III Final Preanesthetic Review: No Changes in Pt Med Stat, Meds/Allgs Chart Reviewed, Consent Obtained/Reviewed and Anes Risks/Benef Reviewed Patient Risk: Intermediate Procedure Risk: Low Anesthetic Plan Anesthetic Plan: GA and Agree w/ Assess. and Plan Disposition: Standard PACU
--- NOTE | ~2025-03-10 | XR_ITS ---
EXAMINATION: XR ABDOMEN 1 VIEW (KUB) HISTORY: pre ESWL-Left COMPARISON: Comparison is made with the prior examination dated 02/20/2022. Correlation is also made with a CT of the abdomen and pelvis without contrast dated 11/19/2024. FINDINGS: Two supine views of the abdomen are submitted. The bowel gas pattern is unremarkable, without evidence of mechanical obstruction. There is a 2.8 cm calcification in the left upper quadrant without change. A 15.7 cm rounded mass is seen in the region of the lower pole of the left kidney corresponding to a cyst seen on CT. There are surgical clips in the right upper quadrant. The bones are intact. XR/XR KUB IMPRESSION: 1. 2.8 cm calcification at the upper pole of the left kidney as seen previously. 2. 15.7 cm cyst at the lower pole of the left kidney. Electronically signed by: Kostas Scott MD 03/10/2025 07:18 AM EDT
[2025-03-10 07:21] VITALS: BMI 36.7
[2025-03-10 07:38] VITALS: BP 140/77; PULSE 84; RESP 16; TEMP 36.8; O2SAT 98
[2025-03-10] MEDS: Lactated Ringers 500 ML 999 ML IV (07:41)
[2025-03-10 08:39] LABS: Glucose, Whole Blood 144 mg/dL (60-115)
--- NOTE | 2025-03-10 08:43 | MHC.SHP ---
Pre-Procedural Eval Section A - 24 Hr Update-Section A only Date of Service: 03/10/25 The patient is an INPATIENT: No The patient has been examined within 24 hours of the surgical procedure. The History & Physical has been completed within 30 days and I have reviewed it.: Yes Section B - Complete if H&P > 30 days Chief Complaint: Calculus of kidney, Left Allergies: Allergies Allergy/AdvReac Type Severity Reaction Status Date / Time atorvastatin Allergy Intermediate elevated Verified 01/15/25 11:17 liver enzymes, elevated enzymes duloxetine (Cymbalta) Allergy Intermediate headache Verified 01/15/25 11:17 dapagliflozin (From Farxiga) AdvReac Intermediate Dizziness Verified 01/15/25 11:17 Plan Diagnosis/Plan: Unchanged I have reviewed the history and physical and performed a pertinent physical examination on my patient. No changes have occurred unless specified. Left ESWL. Discussed risks to include but not limited to, blood in the urine, bruising to the skin, kidney hematoma, possible need for another procedure if a stone fragment obstructs the ureter while passing, possible need to repeat procedure if stone is not completely fragmented. Time Spent With Patient Time: Total time managing care of this patient today ____ minutes.
--- NOTE | 2025-03-10 08:43 | W.PM.OPN ---
Operative Note Operative Note Date of Service: 03/10/25 Narrative: PreOperative Diagnosis:? ? Left Renal stone Post Operative Diagnosis:?Left? Renal stone Procedure:?Left? ESWL Surgeon:?Dr Trudy Trevino Anesthesia:? General Indications for procedure: CT -- reviewed Large left renal cyst, mid to lower pole. measuring 12.5 x 11.8 x 12.0 cm. There are smaller cysts. There are stable dystrophic appearing calcifications in the upper pole dorsal region, unknown if this communicates with the collecting system. The larger more anterior calcification measures 2.0 cm in diameter. Stellate appearance. The patient understands there is a risk of bruising or hematoma to the kidney, infection, and stone migration following the procedure and subsequent intervention may be required.? - Imaging 2.0 cm stone Procedure: After informed consent was verified the patient was brought to the operating room and placed in a supine position.? Anesthesia was performed per protocol. Safety pause time-out was performed. Imaging was displayed in the room and laterality confirmed. ESWL was performed.?The stone was visualized on both fluoroscopy and ultrasound.? Shockwave lithotripsy was performed, with a maximum rate of 120 hertz. After the first 300 shocks a pause for 3 minutes was completed.? A total of 2500 shocks to a maximum of power of 18 with a maximum rate of 120 hertz.? Some fragmentation of the stone was appreciated. The patient tolerated the procedure well and was transferred to the recovery area upon completion. Complications: None
[2025-03-10 09:41] VITALS: BP 124/77; PULSE 81; RESP 18; TEMP 36.2; O2SAT 95
[2025-03-10 09:45] VITALS: BP 118/73; PULSE 71; RESP 18; O2SAT 99
[2025-03-10 09:50] VITALS: BP 120/77; PULSE 81; RESP 18; O2SAT 99
[2025-03-10 09:55] VITALS: BP 129/79; PULSE 66; RESP 18; O2SAT 99
[2025-03-10 10:00] VITALS: BP 138/72; PULSE 66; RESP 18; O2SAT 99
== END 2025-03-10 11:03 | disposition home or self-care (01) ==
PROVIDERS: PCP Internal Medicine; Visit Provider Urology
PROC: (CPT 50590; principal; 2025-03-10 08:30)
DX: N20.0 Calculus of kidney (principal); N28.1 Cyst of kidney, acquired; Z87.442 Personal history of urinary calculi; N39.0 Urinary tract infection, site not specified; R80.9 Proteinuria, unspecified; R31.9 Hematuria, unspecified; I10 Essential (primary) hypertension; D50.9 Iron deficiency anemia, unspecified; E11.9 Type 2 diabetes mellitus without complications; E78.00 Pure hypercholesterolemia, unspecified; K76.0 Fatty (change of) liver, not elsewhere classified; E55.9 Vitamin D deficiency, unspecified; E66.01 Morbid (severe) obesity due to excess calories; Z68.41 Body mass index [BMI] 40.0-44.9, adult; Z79.899 Other long term (current) drug therapy; Z88.8 Allergy status to other drugs, medicaments and biological substances; Z98.890 Other specified postprocedural states
CPT/HCPCS: 50590; 74018; 82947; J0131; J0690; J2003; J2704; J3010

== ENCOUNTER → 2025-03-10 06:49 | Outpatient (BNV) | payer OTHER, SELFPAY | PROVIDERS: PCP Internal Medicine; Visit Provider Urology | DX: N20.0 Calculus of kidney (principal) | CPT/HCPCS: 50590 ==

== ENCOUNTER → 2025-03-10 06:55 | Outpatient (BNV) | payer OTHER, SELFPAY | PROVIDERS: PCP Internal Medicine; Visit Provider Radiology Diagnostic Radiology | DX: N20.0 Calculus of kidney (principal); N28.1 Cyst of kidney, acquired | CPT/HCPCS: 74018 ==

== ENCOUNTER 2025-03-16 09:42 | Outpatient (REF) | payer OTHER, SELFPAY ==
--- NOTE | ~2025-03-16 | MM_ITS ---
EXAMINATION: MM DIAGNOSTIC DIGITAL BREAST TOMOSYNTHESIS, BILATERAL CLINICAL INFORMATION: This is a 6-month follow-up for right breast asymmetries in the superior and lateral breast medial to posterior depth. COMPARISON: Comparison made to multiple prior, most recent August 18, 2024, and most remote April 06, 2022. TECHNIQUE: Digital breast tomosynthesis is performed in both the craniocaudal and mediolateral oblique views along with computer-aided detection (CAD). Synthesized 2D images are generated from the tomosynthesis. Spot compression tomosynthesis images were also obtained. FINDINGS: BREAST COMPOSITION: The breasts are heterogeneously dense, which may obscure small masses (ACR BI-RADS breast composition Category c). RIGHT BREAST: Previously suggested asymmetries in upper and outer breast that partially efface with spot compression are essentially unchanged from August 2024 and April 2024. No new masses, suspicious calcifications or other abnormalities are seen. LEFT BREAST: No significant masses, suspicious calcifications or other abnormalities are seen. MM/MM tomosynthesis diagnostic RT IMPRESSION: RIGHT BREAST: Asymmetries in the superior breast and lateral breast middle to posterior depth that partially efface with spot compression are unchanged from August 2024 and April 2024. Probably benign. A 6-month follow-up right breast mammogram is recommended. LEFT BREAST: Negative, no mammographic evidence of malignancy. Normal interval follow-up is recommended in 12 months. ASSESSMENT: BI-RADS 3 - Probably benign finding(s) - 6 month follow-up suggested RECOMMENDATION: 6 Month F/U Results were provided to the patient at time of visit by the technologist. This patient's information was entered into a reminder system with a target due date for their next mammogram. Electronically signed by: Konrad Horowitz MD 03/16/2025 10:44 AM EDT
--- OUTSIDE RECORDS SUMMARY | 2025-03-16 10:23 | XMS_ITS | Encounter Summary ---
Author Organization [facility] Address [address] [place] [address] Phone Care Team Providers Care Manager Administrative Name Role Phone Yoli Townsend MD Primary Care Provider [phone] Encounter Details Date Type Department Care Team (Late Contact Info) Description 06/18/2022 Documentation Only [facility] [address] [place] [address] Chester Ventura MD [address] [place] [address] [place] [address] Social History Tobacco Use Types [...] Visit [facility] [address] [place] [address] Chester Ventura MD [address] [place] [address] [place] [address] documented as of this encounter Visit Diagnoses Not on filedocumented in this encounter Care Teams Manager Administrative Relationship Specialty Start Date End Date Yoli Townsend MD [address] [place], [place] PCP - General 06/09/19 documented as of this encounter
--- OUTSIDE RECORDS SUMMARY | 2025-03-16 10:24 | XMS_ITS | Clinical Summary ---
Author Organization Formerly [facility] [employer] Address [address] [place] [address] 7[address] [place] [address] Care Team Providers Care Box Car Bracer Name Role Phone Unavailable Primary Care Provider [...] 1960 FIT 1960 FOBT 1960 Sigmoidoscopy 1960 Disability Screening 1960 Alcohol/Substance Use Screening 1972 Tobacco Screening 1972 Pap Smear 1981 Cervical Cancer Screening 1990 HPV/Cotest 1990 Mammogram 2000 Zoster Vaccines (1 of 2) 2010 Pneumococcal Vaccine: 50+ Years (2 of 2 - PCV) 08/13/2012 08/13/2011 DTaP/Tdap/Td Vaccines (2 - T d or Tdap) 02/12/2022 02/13/2012 COVID-19 Vaccine ( - 2023-2 5 season) 2024 Influenza Vaccine (#1) 2025 9, 07/15/2003 RSV Patients and Patients Aged 60 years or older (1 - 1-dose 75+ series) 2035 Hepatitis B Vaccines Completed 12/30/2014, 09/28/2014, 08/16/2014 [...] patient's age to complete this topic Meningococcal B Vaccine Aged Out No l onger eligible based on patient's age to complete [...]
--- OUTSIDE RECORDS SUMMARY | 2025-03-16 10:24 | XMS_ITS | Patient Health Record ---
Author Organization [facility] Address [address] [place] [address] Care Team Providers Care Oil Recovery Unit Operator Name Role Phone Yoli Townsend Primary Care Provider UnavailKostas Love Unavailable [phone] Allergies No Known Allergies Results Component Value Reference Range Notes Complete Blood Count Auto Di ff Reviewed date:06/11/2024 01:39:17 PM Interpretation: Performing Lab:[facility], [address] [place] [phone] Notes/Report: White Blood Count 6.8 4.8-10.8 X10*3/uL [...] 0.0-0.2 /100WBC Neutrophils Absolute Auto 3.2 2.0-8.3 x10*3/u L Imm Gran Abs Auto 0.02 0.00-0.03 X10*3/uL Lymphocytes Absolute Auto 3.1 1.2-4.9 X10*3/u L Monocytes Absolute Auto 0.4 0.1-1.2 X10*3/uL Eosinophils Absolute Auto 0.0 0.0-0.4 X10*3/u L Basophils Absolute Auto 0.0 0.0-0.2 X10*3/uL NRBC Abs Auto 0.000 0.0-0.012 X10*3/uL Prothrombin Time INR Reviewed date:06/11/2024 01:39:24 PM Interpretation: Performing Lab:[facility], [address] [place] [phone] Notes/Report: Prothrombin Time 11.5 10.9-12.4 SEC INTERNATIONAL [...] A2 Reviewed date:06/17/2024 05:10:57 PM Interpretation: Performing Lab:[facility], [address] [place] [phone] Notes/Report: Lipoprotein Asso Phospholip A2 106 <124 Result Units: nmol/min/mL This test was developed and its analytical performance characteristics have been determined by [facility]. It has not been cleared or approved by the U.S. Food and Drug Administration. This assay has been validated pursuant to the CLIA regulations and is used for clinical purposes. Relative Risk: Optimal <=123 nmol/min/mL; High >123 nmol/min/mL. See Note 1 Note 1 This test was developed and its analytical performance characteristics have been determined by [facility]. It has not been cleared or approved by the FDA. This assay has been validated pursuant to the CLIA regulations and is used for clinical purposes. THIS TEST WAS PERFORMED AT: [facility] [address] [place] [address] ERIN TURNER,PHD,[facility] Apolipoprotein B Reviewed date:06/17/2024 05:10:38 PM Interpretation: Performing Lab:[facility], [address] [place] [phone] Notes/Report: Apolipoprotein B 121 <90 mg/dL Reference Range: <90 Risk Category: Optimal < 90 Moderate 90 - 119 High > or = 120 Cardiovascular event risk category cut points (optimal, moderate, high) are based on National Lipid Association recommendations-Joya TA et al. J Clin Lipid. 2015;9:129-169 and Etelvina PS et al. Endocr Pract. 2017;23(Suppl 2):1-87. THIS TEST WAS PERFORMED AT: [facility]/[address] [address] GONZALO ALVARADO MD,PHD Vitamin B12 and Folate Reviewed date:06/11/2024 01:40:13 PM Interpretation: Performing Lab:[facility], [address] [place] [phone] Notes/Report: Vitamin B12 804 200-900 pg/mL NORMAL 200-900 PG/ML INDETERMINATE 160-199 PG/ML DEFICIENT < 160 PG/ML Folate 14.7 > or = 4.0 ng/mL Reference Values: > or = 4.0 ng/mL < 4.0 ng/mL suggests folate deficiency Methotrexate, aminopterin and folinic acid (leucovorin) are chemotherapeutic agents whose molecular structures are similar to folate; therefore, the Commercial Loan Officer folate assay cannot be used for patients using these drugs. Vitamin D 25-OH Total Reviewed date:06/11/2024 01:39:39 PM Interpretation: Performing Lab:[facility], [address] [place] [phone] Notes/Report: Vitamin D 25-OH Total 27.9 >30 [...] Random Reviewed date:06/11/2024 01:38:36 PM Interpretation: Performing Lab:[facility], [address] [place] [phone] Notes/Report: Creatinine Urine 88.40 Microalbumin Urine 152.0 Microalbum/Creatinine Ratio Ur 171.9 <30 ug/mg cr Albumin/Creatinine Ratio Reference Ranges: Normal: < 30 ug/mg creatinine Microalbuminuria: 30 - 300 ug/mg creatinine Clinical Albuminuria: > 300 ug/mg creatinine US abdomen comp w elastograp hy (Not yet reviewed by provider) Interpretation: Performing Lab: Notes/Report: [address] [address] Ultrasound Report Signed Patient: Heather Combs MR#: [id number] : 1960 Acct:[id number] Age/Sex: 64 / F ADM Date: 06/11/24 Loc: HO.US Attending Dr: Kostas Erazo MD Ordering Physician: Kostas Erazo MD Date of Service: 06/11/24 Procedure(s): US abdomen comp w elastography Accession Number(s): [id number] cc: Yoli Townsend MD; Kostas Erazo MD [...] by: Daljit Last MD 08/13/2024 11:52 PM [facility] Dictated By: Daljit Last MD Signed By: <Electronically signed by Daljit Last MD in OV> 08/13/24 2352 DD/ 0807 TD/TT: 06/11/24 0830 Flat Screen Worker: SS Reason For Referral No Information Medications Medication [...] Problem Screening for malignant neoplasm of colon (305439339) Encounter for screening for malignant neoplasm of colon (Z12.11) Active confirmed Problem Hepatic fibrosis (64377863) Hepatic fibrosis (K74.0) Active confirmed Problem 545467082 Elevated liver enzymes (R74.8) Active confirmed Problem 723876134 Fatty liver (K76.0) Active confirmed Problem 85526674 Liver fibrosis (K74.0) Active confirmed Problem Gastroesophageal reflux disease (412049635) GERD without esophagitis (K21.9) Active confirmed Problem Diverticulosis of colon (947748358) Diverticulosis of colon (K57.30) Active confirmed Problem Hepatic fibrosis (disorder) (08150408) Liver fibrosis (K74.00) Active confirmed Vital Signs Blood pressure diastolic 00 mm Hg 05/28/2024 Height 61 in 05/28/2024 Blood pressure systolic 00 mm Hg 05/28/2024 Weight 197 lbs 05/28/2024 BMI 37.22 kg/m2 05/28/2024 Encounters Encounter Location Date Provider Diagnosis [facility] [address] [place] [address] 05/28/2024 Kostas Erazo Fatty liver K76.0 ; [...] PROTHROMBIN TIME (PT, INR) 12/24/2017 ALPHA-FETOPROTEIN,TUMOR MARKER 7 ALPHA-FETOPROTEIN,TUMOR MARKER 4 ALPHA-FETOPROTEIN,TUMOR MARKER 1 ALPHA-FETOPROTEIN,TUMOR MARKER 2 ALPHA-FETOPROTEIN,TUMOR MARKER 3 ALPHA-FETOPROTEIN,TUMOR MARKER 4 ALPHA-FETOPROTEIN,TUMOR MARKER 8 ALPHA-FETOPROTEIN,TUMOR MARKER 5 ALPHA-FETOPROTEIN,TUMOR MARKER 0 US ABD 11/29/2020 US ABD 01/23/2022 US LIVER BIOPSY CORE GUIDE 04/22/2012 Prothrombin Time INR 05/28/2024 Liver Fibrosis Pnl 05/28/2024 Liver Fibrosis Pnl 01/23/2022 US abdomen comp w elastography 4 US abdomen comp w elastography 4 Future Test Test Name Order Date UPPER GI ENDOSCOPY 11/15/2011 COLONOSCOPY 11/15/2011 COLONOSCOPY 01/23/2022 Next Appt Details Provider Name:Kostas Erazo , 06/15/2025 10:30:00 AM, [address] [place] [address], [address], [place], [address], Insurance Providers Payer Name Payer Address Payer Phone Subscriber Number Group Number Insured Name Patient Relationship to Insured Coverage Start Date Coverage End Date [facility] [address] [address] [place], [place] [phone] [id number] HEATHER COMBS Self - patient is the insured MEDICAID OF [facility] [address] [place] [phone] [id number] HEATHER COMBS Self - patient is the insured Medical (General) History Medical History History ICD Code Diabetes HTN Denies [place],CVA,Lung disease,renal disease Kidney stones, s/p lithotripsy hyperlipidemia GERD steatohepatitis, with a live r biopsy in May of 2012 reviewing mild hepatitis and some fibrosis she had a colonoscopy in December of 2011 [facility] was negative for polyps she had [...]
== END 2025-03-16 09:43 | disposition home or self-care (01) ==
LOC: HO.MAMMO 09:42
PROVIDERS: PCP Internal Medicine; Visit Provider Internal Medicine
DX: R92.2 Inconclusive mammogram (principal)
CPT/HCPCS: 77061; 77065

== ENCOUNTER → 2025-03-16 10:00 | Outpatient (BNV) | payer OTHER, SELFPAY | PROVIDERS: PCP Internal Medicine; Visit Provider Radiology Body Imaging | DX: R92.8 Other abnormal and inconclusive findings on diagnostic imaging of breast (principal) | CPT/HCPCS: 77062; 77066 ==

== ENCOUNTER 2025-04-12 14:37 | Outpatient (REF) | payer OTHER, SELFPAY ==
--- NOTE | ~2025-04-12 | XR_ITS ---
EXAMINATION: XR ABDOMEN 1 VIEW (KUB) HISTORY: N20.0 - Calculus of kidney COMPARISON: Comparison is made with the prior examination dated 03/10/2025. FINDINGS: Two supine views of the abdomen are submitted. The bowel gas pattern is unremarkable, without evidence of mechanical obstruction. Again seen is a 2.8 cm calcification overlying the left renal shadow. There are surgical clips in the right upper quadrant. A rounded mass in the left midabdomen is consistent with the renal cyst is noted on CT 11/19/2024. The bones are intact. XR/XR KUB IMPRESSION: 2.8 cm left renal calcification. Electronically signed by: Kostas Scott MD 04/12/2025 03:03 PM EDT
--- NOTE | ~2025-04-12 | CT_ITS ---
EXAMINATION: CT ABDOMEN AND PELVIS WITHOUT AND WITH CONTRAST CLINICAL INFORMATION: Z87.442 - Personal history of urinary calculi Prior: November 19, 2024 TECHNIQUE: Noncontrast CT of the abdomen and pelvis is performed followed by split bolus contrast-enhanced images using 85 mL Omnipaque 350 contrast. Postcontrast imaging is performed during the combined nephrogram and excretion phase. Sagittal and coronal reformatted images were obtained on the technologist's workstation for both the precontrast and postcontrast phases. This CT examination was performed using dose optimization techniques as appropriate, variously including the following: *Automated exposure control *Adjustment of mA and/or kV according to patient size (this includes techniques or standardized protocols for targeted exams where dose is matched to indication/reason for exam; i.e. extremities or head) *Use of iterative reconstruction technique DLP: 1027 mGY*cm FINDINGS: LUNG BASES: The visualized lung bases are unremarkable. LIVER, GALLBLADDER, AND BILIARY TREE: Liver is unremarkable. The gallbladder is surgically absent. There are clips in the gallbladder fossa. There is minimal intra and moderate extra hepatic biliary duct dilation that was also present on the prior PANCREAS: Unremarkable. SPLEEN: Unremarkable. ADRENAL GLANDS: Unremarkable. KIDNEYS AND URETERS: Again noted are multiple bilateral simple renal cyst. The largest is in the lower left kidney measuring 12.5 cm long axis. It demonstrates an area of wall calcification posterior inferiorly without evidence of enhancing mural nodule. With coarse calcification along the posterior inferior wall of the cyst has been present since December 26, 2019. Although the cyst size has enlarged since then, no other changes have occurred. 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 There are few punctate 1-3 mm stones in both kidneys. After contrast, there is symmetric concentration and excretion of contrast into the ureters and bladder. BLADDER: Unremarkable. GASTROINTESTINAL TRACT: A few scattered pseudodiverticula are again noted in the colon. Appendix is within normal limits. ABDOMINAL WALL: No significant hernia is appreciated. LYMPH NODES: Normal. VASCULAR: Mild to moderate calcifications are present PELVIC VISCERA: Unremarkable. OSSEUS STRUCTURES: Unremarkable. CT/CT urogram IMPRESSION: Bosniak IIF left renal cyst with coarse calcifications along the posterior inferior wall. Although the simple cystic component has increased in size, the coarse nodular and linear calcifications are stable when compared with 2020 and there is no enhancing mural nodule. Medullary nephrocalcinosis. This can be related to medullary sponge kidney, distal anterior acidosis, hyperparathyroidism, and other metabolic etiologies. Small bilateral nonobstructing kidney stones and dystrophic calcification in the posterior left kidney, stable. Diverticulosis without sign of infection. Cholecystectomy with stable biliary ductal dilation. Electronically signed by: Bismark Morejon MD 04/12/2025 03:51 PM EDT RP
[2025-04-12] MEDS: iohexoL 350 MG/ML 100 ML INFUS..BTL IV (15:28)
--- OUTSIDE RECORDS SUMMARY | 2025-04-12 16:59 | XMS_ITS | Encounter Summary ---
Author Organization [facility] Address [address] [place] [address] Phone Care Team Providers Care Assistance Specialist Name Role Phone Yoli Townsend MD Primary Care Provider [phone] Encounter Details Date Type Department Care Team (Late Contact Info) Description 12/04/2022 Documentation Only [facility] [address] [place] [address] Chester Ventura MD [address] [place] [address] [place] [address] Social History Tobacco Use Types [...] [facility] [address] [place] [address] Chester Ventura MD [address] [place] [address] [place] [address] documented as of this encounter Visit Diagnoses Not on filedocumented in this encounter Care Teams Assistance Specialist Relationship Specialty Start Date End Date Yoli Townsend MD [address] [place], [place] PCP - General 06/09/19 documented as of this encounter
--- OUTSIDE RECORDS SUMMARY | 2025-04-12 16:59 | XMS_ITS | Encounter Summary ---
Author Organization [facility], Address [address] [place] [address] Phone Care Team Providers Care Radio Broadcaster Name Role Phone Yoli Townsend MD Primary Care Provider [phone] Reason for Visit * Reason Comments Med Refill Encounter Details Date Type Department Care Team (Late Contact Info) Description 02/17/2020 Refill [facility] [address] [place] [address] Chester Ventura MD [address] [place] [address] Social History Tobacco Use [...] Department Care Team (Late Contact Info) Description 06/22/2025 2:15 PM EST Office Visit [facility] [place], [address] [place] [address] Chester Ventura MD [address] [place] [address] documented as of this encounter Visit Diagnoses Not on filedocumented in this encounter Care Teams Radio Broadcaster Relationship Specialty Start Date End Date Yoli Townsend MD [address] [place], [place] PCP - General 06/09/19 documented as of this encounter
--- OUTSIDE RECORDS SUMMARY | 2025-04-12 16:59 | XMS_ITS | Encounter Summary ---
Author Organization [facility] Address [address] [place] [address] Phone Care Team Providers Care Metallurgical Or Materials Technician Name Role Phone Yoli Townsend MD Primary Care Provider [phone] Encounter Details Date Type Department Care Team (Late Contact Info) Description 06/18/2022 Documentation Only [facility] [address] [place] [place] [address] Chester Ventura MD [address] [place] [address] [place] [address] Social History Tobacco Use Types [...] Visit [facility] [address] [place] [address] Chester Ventura MD [address] [place] [address] [place] [address] documented as of this encounter Visit Diagnoses Not on filedocumented in this encounter Care Teams Metallurgical Or Materials Technician Relationship Specialty Start Date End Date Yoli Townsend MD [address] [place], [place] PCP - General 06/09/19 documented as of this encounter
--- OUTSIDE RECORDS SUMMARY | 2025-04-12 16:59 | XMS_ITS | Encounter Summary ---
Author Organization [facility] Address [address] [place] [address] Phone Care Team Providers Care Director Of Income Tax Name Role Phone Yoli Townsend MD Primary Care Provider [phone] Encounter Details Date Type Department Care Team (Late Contact Info) Description 06/12/2023 Documentation Only [facility] [address] [place] [address] Chester Ventura MD [address] [place] [address] [place] [address] Social History Tobacco Use Types [...] [facility] [address] [place] [address] Chester Ventura MD [address] [place] [address] [place] [address] documented as of this encounter Visit Diagnoses Not on filedocumented in this encounter Care Teams Director Of Income Tax Relationship Specialty Start Date End Date Yoli Townsend MD [address] [place], [place] PCP - General 06/09/19 documented as of this encounter
--- OUTSIDE RECORDS SUMMARY | 2025-04-12 16:59 | XMS_ITS | Encounter Summary ---
Author Organization [facility] [place], Address [address] [place] [address] Phone Care Team Providers Care Gastroenterology Professor Name Role Phone Yoli Townsend MD Primary Care Provider [phone] Encounter Details Date Type Department Care Team (Late Contact Info) Description 11/30/2022 Documentation Only [facility] [address] [place] [address] Chester Ventura MD [address] [place] [address] [place] [address] Social History Tobacco [...] Visit [facility] [address] [place] [place] [address] Chester Ventura MD [address] [place] [address] [place] [address] documented as of this encounter Visit Diagnoses Not on filedocumented in this encounter Care Teams Gastroenterology Professor Relationship Specialty Start Date End Date Yoli Townsend MD [address] [place] PCP - General 06/09/19 documented as of this encounter
--- OUTSIDE RECORDS SUMMARY | 2025-04-12 16:59 | XMS_ITS | Encounter Summary ---
Author Organization [facility] Address [address] [place] [address] Phone Care Team Providers Care Practice Management Consultant Name Role Phone Yoli Townsend MD Primary Care Provider [phone] Encounter Details Date Type Department Care Team (Late Contact Info) Description 06/06/2022 Documentation Only [facility] [address] [place] [address] Chester Ventura MD [address] [place] [address] [place] [address] Social History Tobacco Use Types [...] Visit [facility] [address] [place] [address] Chester Ventura MD [address] [place] [address] [place] [address] documented as of this encounter Visit Diagnoses Not on filedocumented in this encounter Care Teams Practice Management Consultant Relationship Specialty Start Date End Date Yoli Townsend MD [address] [place], [place] PCP - General 06/09/19 documented as of this encounter
--- OUTSIDE RECORDS SUMMARY | 2025-04-12 16:59 | XMS_ITS | Patient Health Record ---
Author Organization [facility] Address [address] [place] [address] Care Team Providers Care Package Sorter Name Role Phone Yoli Townsend Primary Care Provider UnavailKostas Love Unavailable [phone] Allergies No Known Allergies Results Component Value Reference Range Notes Complete Blood Count Auto Di ff Reviewed date:06/11/2024 01:39:17 PM Interpretation: Performing Lab:[facility], [address] [place] [phone] Notes/Report: White Blood Count 6.8 4.8-10.8 X10*3/uL [...] INR Reviewed date:06/11/2024 01:39:24 PM Interpretation: Performing Lab:[facility], [address] [place] [phone] Notes/Report: Prothrombin Time 11.5 10.9-12.4 SEC INTERNATIONAL [...] A2 Reviewed date:06/17/2024 05:10:57 PM Interpretation: Performing Lab:[facility], [address] [place] [phone] Notes/Report: Lipoprotein Asso Phospholip A2 106 <124 Result Units: nmol/min/mL This test was developed and its analytical performance characteristics have been determined by [facility]. It has not been cleared or approved by the U.S. Food and Drug Administration. This assay has been validated pursuant to the CLIA regulations and is used for clinical purposes. Relative Risk: Optimal <=123 nmol/min/mL; High >123 nmol/min/mL. See Note 1 Note 1 This test was developed and its analytical performance characteristics have been determined by [facility]. It has not been cleared or approved by the FDA. This assay has been validated pursuant to the CLIA regulations and is used for clinical purposes. THIS TEST WAS PERFORMED AT: [facility] [address] [place] [address] ERIN TURNER,PHD,[facility] Apolipoprotein B Reviewed date:06/17/2024 05:10:38 PM Interpretation: Performing Lab:[facility], [address] [place] [phone] Notes/Report: Apolipoprotein B 121 <90 mg/dL Reference Range: <90 Risk Category: Optimal < 90 Moderate 90 - 119 High > or = 120 Cardiovascular event risk category cut points (optimal, moderate, high) are based on National Lipid Association recommendations-Joya TA et al. J Clin Lipid. 2015;9:129-169 and Etelvina PS et al. Endocr Pract. 2017;23(Suppl 2):1-87. THIS TEST WAS PERFORMED AT: [email or web address]/[address] [address] GONZALO ALVARADO MD,PHD Vitamin B12 and Folate Reviewed date:06/11/2024 01:40:13 PM Interpretation: Performing Lab:[facility], [address] [place] [phone] Notes/Report: Vitamin B12 804 200-900 pg/mL NORMAL 200-900 PG/ML INDETERMINATE 160-199 PG/ML DEFICIENT < 160 PG/ML Folate 14.7 > or = 4.0 ng/mL Reference Values: > or = 4.0 ng/mL < 4.0 ng/mL suggests folate deficiency Methotrexate, aminopterin and folinic acid (leucovorin) are chemotherapeutic agents whose molecular structures are similar to folate; therefore, the Home Care Attendant folate assay cannot be used for patients using these drugs. Vitamin D 25-OH Total Reviewed date:06/11/2024 01:39:39 PM Interpretation: Performing Lab:[facility], [address] [place] [phone] Notes/Report: Vitamin D 25-OH Total 27.9 >30 [...] Random Reviewed date:06/11/2024 01:38:36 PM Interpretation: Performing Lab:[facility], [address] [place] [phone] Notes/Report: Creatinine Urine 88.40 Microalbumin Urine 152.0 Microalbum/Creatinine Ratio Ur 171.9 <30 ug/mg cr Albumin/Creatinine Ratio Reference Ranges: Normal: < 30 ug/mg creatinine Microalbuminuria: 30 - 300 ug/mg creatinine Clinical Albuminuria: > 300 ug/mg creatinine US abdomen comp w elastograp hy (Not yet reviewed by provider) Interpretation: Performing Lab: Notes/Report: [address] [address] Ultrasound Report Signed Patient: Heather Combs MR#: [id number] : 1960 Acct:[id number] Age/Sex: 64 / F ADM Date: 06/11/24 Loc: HO.US Attending Dr: Ksotas Erazo MD Ordering Physician: Kostas Erazo MD Date of Service: 06/11/24 Procedure(s): US abdomen comp w elastography Accession Number(s): [id number] cc: Yoil Townsend MD; Kostas Erazo MD EXAMINATION: US [...] by: Daljit Last MD 08/13/2024 11:52 PM [facility] Dictated By: Daljit Last MD Signed By: <Electronically signed by Daljit Last MD in OV> 08/13/24 2352 DD/ 0807 TD/TT: 06/11/24 0830 Auto Slip Cover Installer: SS Reason For Referral No Information Medications [...] Problem Screening for malignant neoplasm of colon (171787347) Encounter for screening for malignant neoplasm of colon (Z12.11) Active confirmed Problem Hepatic fibrosis (59464520) Hepatic fibrosis (K74.0) Active confirmed Problem 936671273 Elevated liver enzymes (R74.8) Active confirmed Problem 925441514 Fatty liver (K76.0) Active confirmed Problem 36035823 Liver fibrosis (K74.0) Active confirmed Problem Gastroesophageal reflux disease (359601103) GERD without esophagitis (K21.9) Active confirmed Problem Diverticulosis of colon (427716385) Diverticulosis of colon (K57.30) Active confirmed Problem Hepatic fibrosis (disorder) (24476293) Liver fibrosis (K74.00) Active confirmed Vital Signs Blood pressure diastolic 00 mm Hg 05/28/2024 Height 61 in 05/28/2024 Blood pressure systolic 00 mm Hg 05/28/2024 Weight 197 lbs 05/28/2024 BMI 37.22 kg/m2 05/28/2024 Encounters Encounter Location Date Provider Diagnosis [facility] [address] [place] [address] 05/28/2024 Kostas Erazo Fatty liver K76.0 ; [...] Provider Name:Kostas Erazo , 06/15/2025 10:30:00 AM, [address] [place] [address], [address], [place], [address], Insurance Providers Payer Name Payer Address Payer Phone Subscriber Number Group Number Insured Name Patient Relationship to Insured Coverage Start Date Coverage End Date [facility] [address] [address] [place], [place] [phone] [id number] HEATHER COMBS Self - patient is the insured MEDICAID OF [facility] [address] [place] [phone] [id number] HEATHER COMBS Self - patient is the insured Medical (General) History Medical History History ICD Code Diabetes HTN Denies CT,CVA,Lung disease,renal disease Kidney stones, s/p lithotripsy hyperlipidemia GERD steatohepatitis, with a live r biopsy in May of 2012 reviewing mild hepatitis and some fibrosis she had a colonoscopy in December of 2011 [facility] was negative for polyps she had [...]
--- OUTSIDE RECORDS SUMMARY | 2025-04-12 16:59 | XMS_ITS | Clinical Summary ---
Author Organization [facility], Address [address] [place] [address] [place] [address] Phone Care Team Providers Care Cane Packer Name Role Phone Yoli Townsend MD Primary [...] 0 Active ergocalciferol (VITAMIN D2) 1.25 MG (54691 UT) capsule TOME 1 CAPSULA POR VIA [...] Active Jardiance 10 MG tablet TOME MARK ANTOHNY TABLETA TODOS LOS D 3 Active metFORMIN (GLUCOPHAGE) 500 MG tablet TOME DOS TABLETAS ORALLY 2 TIMES A DAY FOR 90 DAYS 3 Active pyridoxine (VITAMIN B-6) 100 MG tablet TOME MARK ANTHONY TABLETA POR V A ORAL A DIARIO 3 Active losartan (COZAAR) 25 MG tablet Take 1 tablet (25 mg total) by mouth 1 (one) time each day 90 tablet 3 4 Active cyanocobalamin (VITAMIN B-12) 1000 MCG tablet [...] Resolved Date Medullary sponge kidney with nephrocalcinosis 09/01/19 20 06/05/2021 Renal stone 09/01/2019 06/05/2021 Family History Medical History Relation Comments Cancer Father Diabetes Father Hypertension Father Diabetes Mother Heart disease Mother [place] Hypertension Mother Cancer Sister Relation Status Comments [...] Visit [facility], [address] [place] [address] Chester Ventura MD [address] [place] [address] Health Maintenance Due Date Last Done Comments Breast Cancer Screening 1960 Pneumococcal Vaccine: 50+ Years (1 of 2 - PCV) 979 Colorectal Cancer Screening: Annual FOBT 2009 Colorectal Cancer Screening: Colonoscopy 2009 Colorectal Cancer Screening: Sigmoidoscopy 2009 Hepatitis B Vaccine (1 of 3 - Risk 3-dose series) 04/06 Diabetes: Hemoglobin A1C 11/10/2020 02/09/2019 Diabetes: Ophthalmology Exam 11/10/2020 Diabetes: Pedal Pulse Checked 11/10/2020 Diabetes: Sensory Foot Exam 11/10/2020 Diabetes: Visual Foot Exam 11/10/2020 Influenza Vaccine (#1) 2025 Procedures Procedure Name Priority Date/Time Associated Diagnosis Comments HEMOGLOBIN A1C Routine 02/09/2019 3:56 PM EDT from Last 3 Months or Most Recently Relevant to Health Maintenance Results * (ABNORMAL) Hemoglobin A1c (02/09/2019 3:56 PM EDT) Hemoglobin A1C 8.1(H) (4-6) % [place] [address] Comment: HEMOGLOBIN A1C(%) GLUCOSE CONTROL INDEX <6% EXCELLENT 6-7% VERY GOOD 7-8% GOOD 8-10% FAIR >10% POOR Hemoglobin (Hb) A1c testing is performed by Lary Roselyn-quant immunoassay. Any cause of shortened erythrocyte survival will reduce exposure of erythrocytes to glucose with a consequent decrease in Hb A1c (%). Testing performed or reported by ~[facility], ~a Service of [facility], ~[address] [place] [address]~ 02/09/2019 3:56 PM EDT us Chester Ventura MD LAB BLOOD ORDERABLES Final Resul t [facility] from Last 3 Months or Most Recently Relevant to Health Maintenance [place] [address] [employer] Care Teams Cane Packer Relationship Specialty Start Date End Date Yoli Townsend MD [address] [place] [address] PCP - General 06/09/19
--- OUTSIDE RECORDS SUMMARY | 2025-04-12 16:59 | XMS_ITS | Encounter Summary ---
Author Organization [facility], Address [address] [place] [address] Phone Care Team Providers Care Sow Farm Technician Name Role Phone Yoli Townsend MD Primary Care Provider [phone] Reason for Visit * Reason Comments Med Refill Encounter Details Date Type Department Care Team (Late Contact Info) Description 02/18/2020 Refill [facility] [address] [place] [address] Chester Ventura MD [address] [place] [address] Social History Tobacco Use Types [...] Visit [facility] [place], [address] [place] [address] Chester Ventura MD [address] [place] [address] documented as of this encounter Visit Diagnoses Not on filedocumented in this encounter Care Teams Sow Farm Technician Relationship Specialty Start Date End Date Yoli Townsend MD [address] [place], [place] PCP - General 06/09/19 documented as of this encounter
--- OUTSIDE RECORDS SUMMARY | 2025-04-12 16:59 | XMS_ITS | Encounter Summary ---
Author Organization [facility] [place], Address [address] [place] [address] Phone Care Team Providers Care Spring Encaser Name Role Phone Yoli Townsend MD Primary Care Provider [phone] Encounter Details Date Type Department Care Team (Late Contact Info) Description 06/10/2023 Documentation Only [facility] Dr [address] [place] [address] Chester Ventura MD [address] [place] [address] [place] [address] Social History Tobacco Use Types [...] Visit [facility] [address] [place] [address] Chester Ventura MD [address] [place] [address] [place] [address] documented as of this encounter Visit Diagnoses Not on filedocumented in this encounter Care Teams Spring Encaser Relationship Specialty Start Date End Date Yoli Townsend MD [address] [place] PCP - General 06/09/19 documented as of this encounter
--- OUTSIDE RECORDS SUMMARY | 2025-04-12 16:59 | XMS_ITS | Encounter Summary ---
Author Organization [facility] Address [address] [place] [address] Phone Care Team Providers Care Jigger Crown Pouncing Machine Operator Name Role Phone Yoli Townsend MD Primary Care Provider [phone] Encounter Details Date Type Department Care Team (Late Contact Info) Description 12/04/2022 Documentation Only [facility] [address] [place] [address] Chester Ventura MD [address] [place] [address] [place] [address] Social History Tobacco Use Types [...] [facility] [address] [place] [address] Chester Ventura MD [address] [place] [address] [place] [address] documented as of this encounter Visit Diagnoses Not on filedocumented in this encounter Care Teams Jigger Crown Pouncing Machine Operator Relationship Specialty Start Date End Date Yoli Townsend MD [address] [place], [place] PCP - General 06/09/19 documented as of this encounter
--- OUTSIDE RECORDS SUMMARY | 2025-04-12 16:59 | XMS_ITS | Encounter Summary ---
Author Organization [facility] Address [address] [place] [address] Phone Care Team Providers Care Reel Blade Bender Furnace Tender Name Role Phone Yoli Townsend MD Primary Care Provider [phone] Encounter Details Date Type Department Care Team (Late Contact Info) Description 06/01/2022 Documentation Only [facility] [address] [place] [address] Chester Ventura MD [address] [place] [address] [place] [address] Social History Tobacco Use Types [...] Visit [facility] [address] [place] [address] Chester Ventura MD [address] [place] [address] [place] [address] documented as of this encounter Visit Diagnoses Not on filedocumented in this encounter Care Teams Reel Blade Bender Furnace Tender Relationship Specialty Start Date End Date Yoli Townsend MD [address] [place], [place] PCP - General 06/09/19 documented as of this encounter
--- OUTSIDE RECORDS SUMMARY | 2025-04-12 17:00 | XMS_ITS | Encounter Summary ---
Author Organization [facility] Address [address] [place] [address] Phone Care Team Providers Care Director Sales And Marketing Name Role Phone Yoli Townsend MD Primary Care Provider Encounter Details Date Type Department Care Team (Late Contact Info) Description 02/21/2022 Documentation Only [facility] [address] [place] [address] Chester Ventura MD [address] [place] [address] [place] [address] Social History Tobacco Use Types [...] [facility] [address] [place] [address] Chester Ventura MD [address] [place] [address] [place] [address] documented as of this encounter Visit Diagnoses Not on filedocumented in this encounter Care Teams Director Sales And Marketing Relationship Specialty Start Date End Date Yoli Townsend MD [address] [place], [place] PCP - General 06/09/19 documented as of this encounter
--- OUTSIDE RECORDS SUMMARY | 2025-04-12 17:00 | XMS_ITS | Encounter Summary ---
Author Organization [facility] Address [address] [place] [address] Phone Care Team Providers Care Engineer And Geologist Name Role Phone Yoli Townsend MD Primary Care Provider [phone] Encounter Details Date Type Department Care Team (Late st Contact Info) Description 12/30/2024 Documentation Only [facility] [address] [place] [address] Liliya Pérez [address] [place] [address] Social History Tobacco Use Types [...] Visit [facility] [address] [place] [address] Chester Ventura MD [address] [place] [address] [place] [address] documented as of this encounter Visit Diagnoses Not on filedocumented in this encounter Care Teams Engineer And Geologist Relationship Specialty Start Date End Date Yoli Townsend MD [address] [place], [place] PCP - General 06/09/19 documented as of this encounter
--- OUTSIDE RECORDS SUMMARY | 2025-04-12 17:00 | XMS_ITS | Encounter Summary ---
Author Organization [facility] Address [address] [place] [address] Phone Care Team Providers Care Mercury Recoverer Name Role Phone Yoli Townsend MD Primary Care Provider [phone] Encounter Details Date Type Department Care Team (Late st Contact Info) Description 10/08/2023 Documentation Only [facility] [address] [place] [address] Liliya Pérez [address] [place] [address] Social History Tobacco Use Types [...] Visit [facility] [address] [place] [address] Chester Ventura MD [address] [place] [address] [place] [address] documented as of this encounter Visit Diagnoses Not on filedocumented in this encounter Care Teams Mercury Recoverer Relationship Specialty Start Date End Date Yoli Townsend MD [address] [place], [place] PCP - General 06/09/19 documented as of this encounter
--- OUTSIDE RECORDS SUMMARY | 2025-04-12 17:00 | XMS_ITS | Encounter Summary ---
Author Organization [facility] Address [address] [place] [address] Phone Care Team Providers Care Shop Router Name Role Phone Yoli Townsend MD Primary Care Provider [phone] Encounter Details Date Type Department Care Team (Late st Contact Info) Description 09/27/2023 Documentation Only [facility] [address] [place] [address] Liliya Pérez [address] [place] [address] Social History Tobacco Use Types [...] Visit [facility] [address] [place] [address] Chester Ventura MD [address] [place] [address] [place] [address] documented as of this encounter Visit Diagnoses Not on filedocumented in this encounter Care Teams Shop Router Relationship Specialty Start Date End Date Yoli Townsend MD [address] [place], [place] PCP - General 06/09/19 documented as of this encounter
--- OUTSIDE RECORDS SUMMARY | 2025-04-12 17:00 | XMS_ITS | Encounter Summary ---
Author Organization [facility] Address [address] [facility] [address] [place] [address] Care Team Providers Care Parking Enforcement Officer Name Role Phone Unavailable Primary Care Provider Unavailabl e Encounter Details Date Type Department Care Team (Latest Contact Info) Description 01/28/2019 Abstract [facility] CONVERSIONS Dental, Provider, DDS Social History Tobacco [...]
--- OUTSIDE RECORDS SUMMARY | 2025-04-12 17:00 | XMS_ITS | Encounter Summary ---
Author Organization [facility] [place], Address [address] [place] [address] Phone Care Team Providers Care Draw Bench Operator Name Role Phone Yoli Townsend MD Primary Care Provider [phone] Encounter Details Date Type Department Care Team (Late Contact Info) Description 06/12/2023 Documentation Only [facility] Dr [address] [place] [address] Chester Ventura MD [address] [place] [address] [place] [address] Social History Tobacco Use Types [...] Visit [facility] [address] [place] [place] [address] Chester Ventura MD [address] [place] [address] [place] [address] documented as of this encounter Visit Diagnoses Not on filedocumented in this encounter Care Teams Draw Bench Operator Relationship Specialty Start Date End Date Yoli Townsend MD [address] [place] PCP - General 06/09/19 documented as of this encounter
--- OUTSIDE RECORDS SUMMARY | 2025-04-12 17:00 | XMS_ITS | Clinical Summary ---
Author Organization [facility] Address [address] [place] [address] 7t [place] [address] Care Team Providers Care Hospice Office Coordinator Name Role Phone Unavailable Primary Care Provider [...] COVID-19 Vaccine ( - 2023-2 5 season) 2025 Influenza Vaccine (#1) 2025 9, 07/15/2003 RSV [...]
--- OUTSIDE RECORDS SUMMARY | 2025-04-12 17:00 | XMS_ITS | Encounter Summary ---
Author Organization [facility] Address [address] [place] [address] Phone Care Team Providers Care Ammonium Nitrate Neutralizer Name Role Phone Yoli Townsend MD Primary Care Provider [phone] Encounter Details Date Type Department Care Team (Late st Contact Info) Description 10/07/2023 Documentation Only [facility] [address] [place] [address] Liliya Pérez [address] [place] [address] Social History Tobacco Use Types [...] Visit [facility] [address] [place] [address] Chester Ventura MD [address] [place] [address] [place] [address] documented as of this encounter Visit Diagnoses Not on filedocumented in this encounter Care Teams Ammonium Nitrate Neutralizer Relationship Specialty Start Date End Date Yoli Townsend MD [address] [place], [place] PCP - General 06/09/19 documented as of this encounter
--- OUTSIDE RECORDS SUMMARY | 2025-04-12 17:00 | XMS_ITS | Encounter Summary ---
Author Organization [facility] Address [address] [place] [address] Phone Care Team Providers Care Public Bath Attendant Name Role Phone Yoli Townsend MD Primary Care Provider [phone] Encounter Details Date Type Department Care Team (Late st Contact Info) Description 06/23/2024 Office Communication [facility] Dr [address] [place] [address] Chester Ventura MD [address] [place] [address] [place] [address] Social History Tobacco Use Types [...] [facility] [address] [place] [address] Chester Ventura MD [address] [place] [address] [place] [address] documented as of this encounter Visit Diagnoses Not on filedocumented in this encounter Care Teams Public Bath Attendant Relationship Specialty Start Date End Date Yoli Townsend MD [address] [place] PCP - General 06/09/19 documented as of this encounter
--- OUTSIDE RECORDS SUMMARY | 2025-04-12 17:00 | XMS_ITS | Encounter Summary ---
Author Organization [facility] Address [address] [place] [address] Phone Care Team Providers Care Rn Utilization Management Um Name Role Phone Yoli Townsend MD Primary Care Provider [phone] Encounter Details Date Type Department Care Team (Late st Contact Info) Description 09/27/2023 Documentation Only [facility] [address] [place] [address] Liliya Pérez [address] [place] [address] Social History Tobacco Use Types [...] [facility] [address] [place] [address] Chester Ventura MD [address] [place] [address] [place] [address] documented as of this encounter Visit Diagnoses Not on filedocumented in this encounter Care Teams Rn Utilization Management Um Relationship Specialty Start Date End Date Yoli Townsend MD [address] [place], [place] PCP - General 06/09/19 documented as of this encounter
--- OUTSIDE RECORDS SUMMARY | 2025-04-12 17:00 | XMS_ITS | Encounter Summary ---
Author Organization [facility] Address [address] 7t [place] [address] Care Team Providers Care Care Taker Name Role Phone Unavailable Primary Care Provider Unavailabl e Encounter Details Date Type Department Care Team (Latest Contact Info) Description 11/22/2021 Abstract [facility] CONVERSIONS Dental, Provider, DDS Social [...]
[2025-04-13 07:12] LABS: Creatinine POC 1.0 mg/dL (0.5-1.4); GFR POC > 60
== END 2025-04-12 14:38 | disposition home or self-care (01) ==
LOC: HO.CT 14:37
PROVIDERS: PCP Internal Medicine; Visit Provider Urology
DX: N20.0 Calculus of kidney (principal); Z87.442 Personal history of urinary calculi
CPT/HCPCS: 74018; 74178; 82565; Q9967

== ENCOUNTER → 2025-04-12 14:40 | Outpatient (BNV) | payer OTHER, SELFPAY | PROVIDERS: PCP Internal Medicine; Visit Provider Radiology Diagnostic Radiology | DX: N20.0 Calculus of kidney (principal); N28.1 Cyst of kidney, acquired; K57.30 Diverticulosis of large intestine without perforation or abscess without bleeding; Z90.49 Acquired absence of other specified parts of digestive tract | CPT/HCPCS: 74018; 74178 ==

== ENCOUNTER 2025-04-21 12:00 | Outpatient (REF) | payer OTHER, SELFPAY ==
--- NOTE | ~2025-04-21 | US_ITS ---
EXAMINATION: US RETROPERITONEAL LIMITED (RENAL ONLY) CLINICAL INFORMATION: Calculus of the kidney. N20.0. COMPARISON: June 11, 2024. Correlated to CT urogram dated April 12, 2025. TECHNIQUE: Real-time ultrasound kidneys using grayscale technique. FINDINGS: RIGHT KIDNEY: 12 x 7 x 6 cm (SAG x AP x TRV). Multiple punctate hyperechoic abnormality is throughout the corticomedullary junction, the largest measures 1.1 cm in the midportion. There are multifocal different sizes anechoic lesions throughout the renal cortex and parapelvic of the kidney, the largest measures 3.8 cm in the upper pole. Isoechoic parenchyma. Normal renal cortical thickness. No gross hydronephrosis. LEFT KIDNEY: 14 x 8 x 7 cm (SAG x AP x TRV). Isoechoic parenchyma. Normal renal cortical thickness. No hydronephrosis.. Multifocal, different sizes anechoic lesions throughout the exophytic, cortical medullary junction and parapelvic kidney. The largest lesion measures 13 cm in the lower pole. There are multifocal hyperechoic abnormality is, the largest measures 2.6 cm in the upper pole. US/US renal BI IMPRESSION: Bilateral nonobstructing nephrolithiasis. Bilateral multifocal renal cysts. Please refer to the CT urogram dated April 12, 2025.. Electronically signed by: Chago Maldonado MD 04/21/2025 01:34 PM EDT
--- OUTSIDE RECORDS SUMMARY | 2025-04-21 15:30 | XMS_ITS | Encounter Summary ---
Author Organization [facility] Address [address] [place] [address] Phone Care Team Providers Care Overnight Associate Name Role Phone Yoli Townsend MD Primary Care Provider [phone] Encounter Details Date Type Department Care Team (Late Contact Info) Description 06/01/2022 Documentation Only [facility] [address] [place] [address] Chester Ventura MD [address] [place] [address] [place] [address] Social History Tobacco Use Types [...] Visit [facility] [address] [place] [address] Chester Ventura MD [address] [place] [address] [place] [address] documented as of this encounter Visit Diagnoses Not on filedocumented in this encounter Care Teams Overnight Associate Relationship Specialty Start Date End Date Yoli Townsend MD [address] [place], [place] PCP - General 06/09/19 documented as of this encounter
--- OUTSIDE RECORDS SUMMARY | 2025-04-21 15:30 | XMS_ITS | Encounter Summary ---
Author Organization [facility] Address [address] [place] [address] Phone Care Team Providers Care Bottom Stainer Name Role Phone Yoli Townsend MD Primary Care Provider [phone] Encounter Details Date Type Department Care Team (Late Contact Info) Description 12/04/2022 Documentation Only [facility] [address] [place] [address] Chester Ventura MD [address] [place] [address] [place] [address] Social History Tobacco Use Types [...] [facility] [address] [place] [address] Chester Ventura MD [address] [place] [address] [place] [address] documented as of this encounter Visit Diagnoses Not on filedocumented in this encounter Care Teams Bottom Stainer Relationship Specialty Start Date End Date Yoli Townsend MD [address] [place], [place] PCP - General 06/09/19 documented as of this encounter
--- OUTSIDE RECORDS SUMMARY | 2025-04-21 15:30 | XMS_ITS | Encounter Summary ---
Author Organization [facility], Address [address] [place] [address] Phone Care Team Providers Care Interventional Sale Consultant Name Role Phone Yoli Townsend MD Primary Care Provider [phone] Reason for Visit * Reason Comments Med Refill Encounter Details Date Type Department Care Team (Late Contact Info) Description 02/18/2020 Refill [facility] [address] [place] [address] Chester Ventura MD [address] [facility] [place] [address] Social History Tobacco Use Types [...] Visit [facility] [place], [address] [place] [address] Chester Ventura MD [address] [facility] [place] [address] documented as of this encounter Visit Diagnoses Not on filedocumented in this encounter Care Teams Interventional Sale Consultant Relationship Specialty Start Date End Date Yoli Townsend MD [address] [place], [place] PCP - General 06/09/19 documented as of this encounter
--- OUTSIDE RECORDS SUMMARY | 2025-04-21 15:30 | XMS_ITS | Encounter Summary ---
Author Organization [facility] Address [address] [address] Phone Care Team Providers Care Toddler Guide Name Role Phone Yoli Townsend MD Primary Care Provider [phone] Encounter Details Date Type Department Care Team (Late Contact Info) Description 06/06/2022 Documentation Only [facility] [address] [place] [address] Chester Ventura MD [address] [place] [address] [place] [address] Social History Tobacco Use Types [...] [facility] [address] [place] [address] Chester Ventura MD [address] [place] [address] [place] [address] documented as of this encounter Visit Diagnoses Not on filedocumented in this encounter Care Teams Toddler Guide Relationship Specialty Start Date End Date Yoli Townsend MD [address] [place], [place] PCP - General 06/09/19 documented as of this encounter
--- OUTSIDE RECORDS SUMMARY | 2025-04-21 15:30 | XMS_ITS | Clinical Summary ---
Author Organization [employer] [facility] [employer] Address [address] [place] [address] 7t [place] [address] Care Team Providers Care Copy And Print Associate Name Role Phone Unavailable Primary Care Provider [...]
--- OUTSIDE RECORDS SUMMARY | 2025-04-21 15:30 | XMS_ITS | Encounter Summary ---
Author Organization [facility] Address [address] [place] [address] Phone Care Team Providers Care Paraprofessional Interpreter Name Role Phone Yoli Townsend MD Primary Care Provider [phone] Encounter Details Date Type Department Care Team (Late st Contact Info) Description 09/27/2023 Documentation Only [facility] [address] [place] [address] Liliya Pérez [address] [place] [address] Social History Tobacco Use Types [...] Visit [facility] [address] [place] [address] Chester Ventura MD [address] [place] [address] [place] [address] documented as of this encounter Visit Diagnoses Not on filedocumented in this encounter Care Teams Paraprofessional Interpreter Relationship Specialty Start Date End Date Yoli Townsend MD [address] [place], [place] PCP - General 06/09/19 documented as of this encounter
--- OUTSIDE RECORDS SUMMARY | 2025-04-21 15:30 | XMS_ITS | Encounter Summary ---
Author Organization [facility] [place], Address [address] [place] [address] Phone Care Team Providers Care Catia Designer Name Role Phone Yoli Townsend MD Primary Care Provider [phone] Encounter Details Date Type Department Care Team (Late Contact Info) Description 11/30/2022 Documentation Only [facility] [address] [place] [address] Chester Ventura MD [address] [place] [address] [place] [address] Social History Tobacco Use Types [...] Visit [facility] [address] [place] [address] Chester Ventura MD [address] [place] [address] [place] [address] documented as of this encounter Visit Diagnoses Not on filedocumented in this encounter Care Teams Catia Designer Relationship Specialty Start Date End Date Yoli Townsend MD [address] [place] PCP - General 06/09/19 documented as of this encounter
--- OUTSIDE RECORDS SUMMARY | 2025-04-21 15:30 | XMS_ITS | Encounter Summary ---
Author Organization [employer] [facility] Address [address] [facility] 7t [place] [address] Care Team Providers Care Newspaper Photographer Name Role Phone Unavailable Primary Care Provider [...]
--- OUTSIDE RECORDS SUMMARY | 2025-04-21 15:30 | XMS_ITS | Encounter Summary ---
Author Organization [facility] [place], Address [address] [place] [address] Phone Care Team Providers Care Measurement Advisor Name Role Phone Yoli Townsend MD Primary Care Provider [phone] Encounter Details Date Type Department Care Team (Late Contact Info) Description 06/12/2023 Documentation Only [facility] Dr [address] [place] [address] Chester Ventura MD [address] [place] [address] [place] [address] Social History Tobacco Use Types [...] Visit [facility] [address] [place] [address] Chester Ventura MD [address] [place] [address] [place] [address] documented as of this encounter Visit Diagnoses Not on filedocumented in this encounter Care Teams Measurement Advisor Relationship Specialty Start Date End Date Yoli Townsend MD [address] [place] PCP - General 06/09/19 documented as of this encounter
--- OUTSIDE RECORDS SUMMARY | 2025-04-21 15:30 | XMS_ITS | Patient Health Record ---
Author Organization [facility] Address [address] [place] [address] Care Team Providers Care Structural Worker Name Role Phone Yoli Townsend Primary Care Provider UnavailKostas Love Unavailable [phone] Allergies No Known Allergies Results Component Value Reference Range Notes Complete Blood Count Auto Di ff Reviewed date:06/11/2024 01:39:17 PM Interpretation: Performing Lab:[facility], [address] [place] [phone] Notes/Report: White Blood Count 6.8 4.8-10.8 X10*3/uL [...] INR Reviewed date:06/11/2024 01:39:24 PM Interpretation: Performing Lab:[facility], [address] [place] [phone] Notes/Report: Prothrombin Time 11.5 10.9-12.4 SEC [employer]NATIONAL [...] A2 Reviewed date:06/17/2024 05:10:57 PM Interpretation: Performing Lab:[facility], [address] [place] [phone] Notes/Report: Lipoprotein Asso Phospholip A2 106 <124 Result Units: nmol/min/mL This test was developed and its analytical performance characteristics have been determined by [facility]. It has not been cleared or approved by the U.S. Food and Drug Administration. This assay has been validated pursuant to the CLIA regulations and is used for clinical purposes. Relative Risk: Optimal <=123 nmol/min/mL; High >123 nmol/min/mL. See Note 1 Note 1 This test was developed and its analytical performance characteristics have been determined by [facility]. It has not been cleared or approved by the FDA. This assay has been validated pursuant to the CLIA regulations and is used for clinical purposes. THIS TEST WAS PERFORMED AT: [facility] [address] [place] [address] ERIN TURNER,PHD,[facility] Apolipoprotein B Reviewed date:06/17/2024 05:10:38 PM Interpretation: Performing Lab:[facility], [address] [place] [phone] Notes/Report: Apolipoprotein B 121 <90 mg/dL Reference Range: <90 Risk Category: Optimal < 90 Moderate 90 - 119 High > or = 120 Cardiovascular event risk category cut points (optimal, moderate, high) are based on National Lipid Association recommendations-Joya TA et al. J Clin Lipid. 2015;9:129-169 and Etelvina PS et al. Endocr Pract. 2017;23(Suppl 2):1-87. THIS TEST WAS PERFORMED AT: [facility]/[address] [address] GONZALO ALVARADO MD,PHD Vitamin B12 and Folate Reviewed date:06/11/2024 01:40:13 PM Interpretation: Performing Lab:[facility], [address] [place] [phone] Notes/Report: Vitamin B12 804 200-900 pg/mL NORMAL 200-900 PG/ML INDETERMINATE 160-199 PG/ML DEFICIENT < 160 PG/ML Folate 14.7 > or = 4.0 ng/mL Reference Values: > or = 4.0 ng/mL < 4.0 ng/mL suggests folate deficiency Methotrexate, aminopterin and folinic acid (leucovorin) are chemotherapeutic agents whose molecular structures are similar to folate; therefore, the Gear Cutter folate assay cannot be used for patients using these drugs. Vitamin D 25-OH Total Reviewed date:06/11/2024 01:39:39 PM Interpretation: Performing Lab:[facility], [address] [place] [phone] Notes/Report: Vitamin D 25-OH Total 27.9 >30 [...] Random Reviewed date:06/11/2024 01:38:36 PM Interpretation: Performing Lab:[facility], [address] [place] [phone] Notes/Report: Creatinine Urine 88.40 Microalbumin Urine 152.0 Microalbum/Creatinine Ratio Ur 171.9 <30 ug/mg cr Albumin/Creatinine Ratio Reference Ranges: Normal: < 30 ug/mg creatinine Microalbuminuria: 30 - 300 ug/mg creatinine Clinical Albuminuria: > 300 ug/mg creatinine US abdomen comp w elastograp hy (Not yet reviewed by provider) Interpretation: Performing Lab: Notes/Report: [address] [address] Ultrasound Report Signed Patient: Heather Combs MR#: [id number] : 1960 Acct:[id number] Age/Sex: 64 / F ADM Date: 06/11/24 Loc: HO.US Attending Dr: Kostas Erazo MD Ordering Physician: Kostas Erazo MD Date of Service: 06/11/24 Procedure(s): US abdomen comp w elastography Accession Number(s): [id number] cc: Yoli Town[place] MD; Kostas Erazo MD [...] 08/13/2024 11:52 PM [facility] [place] [place] Dictated By: Daljit Last MD Signed By: <Electronically signed by Daljit Last MD in OV> 08/13/24 2352 DD/ 0807 TD/TT: 06/11/24 0830 Ice House Supervisor: SS Reason For Referral No Information Medications [...] Problem Screening for malignant neoplasm of colon (921626127) Encounter for screening for malignant neoplasm of colon (Z12.11) Active confirmed Problem Hepatic fibrosis (60492767) Hepatic fibrosis (K74.0) Active confirmed Problem 551624119 Elevated liver enzymes (R74.8) Active confirmed Problem 085434419 Fatty liver (K76.0) Active confirmed Problem 40886205 Liver fibrosis (K74.0) Active confirmed Problem Gastroesophageal reflux disease (458317774) GERD without esophagitis (K21.9) Active confirmed Problem Diverticulosis of colon (062150197) Diverticulosis of colon (K57.30) Active confirmed Problem Hepatic fibrosis (disorder) (18760331) Liver fibrosis (K74.00) Active confirmed Vital Signs Blood pressure diastolic 00 mm Hg 05/28/2024 Height 61 in 05/28/2024 Blood pressure systolic 00 mm Hg 05/28/2024 Weight 197 lbs 05/28/2024 BMI 37.22 kg/m2 05/28/2024 Encounters Encounter Location Date Provider Diagnosis [facility] [address] [place] [address] 05/28/2024 Kostas Erazo Fatty liver K76.0 ; [...] Test Test Name Order Date LIVER PROFILE 01/23/2022 LIVER PROFILE 05/29/2023 LIVER PROFILE 11/29/2020 LIVER PROFILE 12/24/2017 LIVER PROFILE 08/06/2013 LIVER PROFILE 05/28/2024 CBC w DIFF 05/28/2024 CBC w DIFF [...] Provider Name:Kostas Erazo , 06/15/2025 10:30:00 AM, [address] [place] [address], [address], [place], [address], Insurance Providers Payer Name Payer Address Payer Phone Subscriber Number Group Number Insured Name Patient Relationship to Insured Coverage Start Date Coverage End Date [facility] [address] [address] [place], [place] [phone] [id number] HEATHER COMBS Self - patient is the insured MEDICAID OF [facility] [address] [place] [phone] [id number] HEATHER COMBS Self - patient is the insured Medical (General) History Medical History History ICD Code Diabetes HTN Denies ND,CVA,Lung disease,renal disease Kidney stones, s/p lithotripsy hyperlipidemia GERD steatohepatitis, with a live r biopsy in May of 2012 reviewing mild hepatitis and some fibrosis she had a colonoscopy in December of 2011 [facility] was negative for polyps she had [...]
--- OUTSIDE RECORDS SUMMARY | 2025-04-21 15:30 | XMS_ITS | Encounter Summary ---
Author Organization [facility] Address [address] [place] [address] Phone Care Team Providers Care Manager Dairy Name Role Phone Yoli Townsend MD Primary Care Provider [phone] Encounter Details Date Type Department Care Team (Late Contact Info) Description 06/18/2022 Documentation Only [facility] [address] [place] [address] Chester Ventura MD [address] [place] [address] [place] [address] Social History Tobacco Use Types [...] Visit [facility] [address] [place] [address] Chester Ventura MD [address] [place] [address] [place] [address] documented as of this encounter Visit Diagnoses Not on filedocumented in this encounter Care Teams Manager Dairy Relationship Specialty Start Date End Date Yoli Townsend MD [address] [place], [place] PCP - General 06/09/19 documented as of this encounter
--- OUTSIDE RECORDS SUMMARY | 2025-04-21 15:30 | XMS_ITS | Encounter Summary ---
Author Organization [facility], Address [address] [place] [address] Phone Care Team Providers Care Scholarship Counselor Name Role Phone Yoli Townsend MD Primary Care Provider [phone] Reason for Visit * Reason Comments Med Refill Encounter Details Date Type Department Care Team (Late Contact Info) Description 02/17/2020 Refill [facility] [address] [place] [address] Chester Ventura MD [address] [facility] [place] [address] Social History Tobacco Use Types [...] Visit [facility] [place], [address] [place] [address] Chester Ventura MD [address] [facility] [place] [address] documented as of this encounter Visit Diagnoses Not on filedocumented in this encounter Care Teams Scholarship Counselor Relationship Specialty Start Date End Date Yoli Townsend MD [address] [place], [place] PCP - General 06/09/19 documented as of this encounter
--- OUTSIDE RECORDS SUMMARY | 2025-04-21 15:30 | XMS_ITS | Encounter Summary ---
Author Organization [facility] [place], Address [address] [place] [address] Phone Care Team Providers Care Oceanography Professor Name Role Phone Yoli Townsend MD Primary Care Provider [phone] Encounter Details Date Type Department Care Team (Late Contact Info) Description 06/10/2023 Documentation Only [facility] Dr [address] [place] [phone] Chester Ventura MD [address] [place] [address] [place] [address] Social History Tobacco Use Types [...] Visit [facility] [address] [place] [address] Chester Ventura MD [address] [place] [address] [place] [address] documented as of this encounter Visit Diagnoses Not on filedocumented in this encounter Care Teams Oceanography Professor Relationship Specialty Start Date End Date Yoli Townsend MD [address] [place] PCP - General 06/09/19 documented as of this encounter
--- OUTSIDE RECORDS SUMMARY | 2025-04-21 15:30 | XMS_ITS | Encounter Summary ---
Author Organization [facility] Address [address] [place] [address] Phone Care Team Providers Care Provider Enrollment Specialist Name Role Phone Yoli Townsend MD Primary Care Provider [phone] Encounter Details Date Type Department Care Team (Late st Contact Info) Description 09/27/2023 Documentation Only [facility] [address] [place] [address] Liliya Pérez [address] [place] [address] Social History Tobacco Use Types [...] Visit [facility] [address] [place] [address] Chester Ventura MD [address] [place] [address] [place] [address] documented as of this encounter Visit Diagnoses Not on filedocumented in this encounter Care Teams Provider Enrollment Specialist Relationship Specialty Start Date End Date Yoli Townsend MD [address] [place], [place] PCP - General 06/09/19 documented as of this encounter
--- OUTSIDE RECORDS SUMMARY | 2025-04-21 15:30 | XMS_ITS | Encounter Summary ---
Author Organization [facility] Address [address] [place] [address] Phone Care Team Providers Care Line Erector Apprentice Name Role Phone Yoli Townsend MD Primary Care Provider [phone] Encounter Details Date Type Department Care Team (Late st Contact Info) Description 10/07/2023 Documentation Only [facility] [address] [place] [address] Liliya Pérez [address] [place] [address] Social History Tobacco Use Types [...] [facility] [address] [place] [address] Chester Ventura MD [address] [place] [address] [place] [address] documented as of this encounter Visit Diagnoses Not on filedocumented in this encounter Care Teams Line Erector Apprentice Relationship Specialty Start Date End Date Yoli Townsend MD [address] [place], [place] PCP - General 06/09/19 documented as of this encounter
--- OUTSIDE RECORDS SUMMARY | 2025-04-21 15:30 | XMS_ITS | Clinical Summary ---
Author Organization [facility] [place], Address [address] [place] [address] [place] [address] Phone Care Team Providers Care Pipeline Systems Operator Name Role Phone Yoli Townsend MD Primary Care Provider [phone] Allergies Active Allergy Reactions Criticality Noted Date [...] 0 Active ergocalciferol (VITAMIN D2) 1.25 MG (25799 UT) capsule TOME 1 CAPSULA POR VIA [...] Hypertension Father Diabetes Mother Heart disease Mother [place] Hypertension Mother Cancer Sister Relation Status Comments [...] Visit [facility] [place], [address] [place] [address] Chester Ventura MD [address] [address] Health Maintenance Due Date Last Done [...] PM EDT) Hemoglobin A1C 8.1(H) (4-6) % [place] [id number] Comment: HEMOGLOBIN A1C(%) GLUCOSE CONTROL INDEX <6% EXCELLENT 6-7% VERY GOOD 7-8% GOOD 8-10% FAIR >10% POOR Hemoglobin (Hb) A1c testing is performed by Lary Roselyn-quant immunoassay. Any cause of shortened erythrocyte survival will reduce exposure of erythrocytes to glucose with a consequent decrease in Hb A1c (%). Testing performed or reported by ~[facility], ~a Service of [facility], ~[address] [place] [id number]~ 02/09/2019 3:56 PM EDT us Chester Ventura MD LAB BLOOD ORDERABLES Final Resul t [id number] from Last 3 Months or Most Recently Relevant to Health Maintenance [place] [address] [employer] Care Teams Pipeline Systems Operator Relationship Specialty Start Date End Date Yoli Tonwsend MD [address] [place] [address] PCP - General 06/09/19
--- OUTSIDE RECORDS SUMMARY | 2025-04-21 15:30 | XMS_ITS | Encounter Summary ---
Author Organization [facility] Address [address] [place] [address] Phone Care Team Providers Care Ec Teacher Name Role Phone Yoli Townsend MD Primary Care Provider [phone] Encounter Details Date Type Department Care Team (Late Contact Info) Description 12/04/2022 Documentation Only [facility] [address] [place] [address] Chester Ventura MD [address] [place] [address] [place] [address] Social History Tobacco Use Types [...] Visit [facility] [address] [place] [address] Chester Ventura MD [address] [place] [address] [place] [address] documented as of this encounter Visit Diagnoses Not on filedocumented in this encounter Care Teams Ec Teacher Relationship Specialty Start Date End Date Yoli Townsend MD [address] [place], [place] PCP - General 06/09/19 documented as of this encounter
--- OUTSIDE RECORDS SUMMARY | 2025-04-21 15:30 | XMS_ITS | Encounter Summary ---
Author Organization [facility] Address [address] [place] [address] Phone Care Team Providers Care Mental Health Aides Teacher Name Role Phone Yoli Townsend MD Primary Care Provider [phone] Encounter Details Date Type Department Care Team (Late Contact Info) Description 06/12/2023 Documentation Only [facility] [address] [place] [address] Chester Ventura MD [address] [place] [address] [place] [address] Social History Tobacco Use Types [...] [facility] [address] [place] [address] Chester Ventura MD [address] [place] [address] [place] [address] documented as of this encounter Visit Diagnoses Not on filedocumented in this encounter Care Teams Mental Health Aides Teacher Relationship Specialty Start Date End Date Yoli Townsend MD [address] [place], [place] PCP - General 06/09/19 documented as of this encounter
--- OUTSIDE RECORDS SUMMARY | 2025-04-21 15:31 | XMS_ITS | Encounter Summary ---
Author Organization [facility] Address [address] [place] [address] Phone Care Team Providers Care Certified Ophthalmic Assistant Name Role Phone Yoli Townsend MD Primary Care Provider [phone] Encounter Details Date Type Department Care Team (Late st Contact Info) Description 06/23/2024 Office Communication [facility] Dr [address] [place] [phone] Chester Ventura MD [address] [place] [address] [place] [address] Social History Tobacco Use Types [...] Visit [facility] [address] [place] [address] Chester Ventura MD [address] [place] [address] [place] [address] documented as of this encounter Visit Diagnoses Not on filedocumented in this encounter Care Teams Certified Ophthalmic Assistant Relationship Specialty Start Date End Date Yoli Townsend MD [address] [place] PCP - General 06/09/19 documented as of this encounter
--- OUTSIDE RECORDS SUMMARY | 2025-04-21 15:31 | XMS_ITS | Encounter Summary ---
Author Organization [employer] [facility] Address [address] [facility] 7[address] [place] [address] Care Team Providers Care Medical Office Technologist Name Role Phone Unavailable Primary Care Provider [...]
--- OUTSIDE RECORDS SUMMARY | 2025-04-21 15:31 | XMS_ITS | Encounter Summary ---
Author Organization [facility] Address [address] [place] [address] Phone Care Team Providers Care Power Machine Operator Name Role Phone Yoli Townsend MD Primary Care Provider Encounter Details Date Type Department Care Team (Late st Contact Info) Description 12/30/2024 Documentation Only [facility] [address] [place] [address] Liliya Pérez [address] [place] [address] Social History Tobacco Use Types [...] [facility] [address] [place] [address] Chester Ventura MD [address] [place] [address] [place] [address] documented as of this encounter Visit Diagnoses Not on filedocumented in this encounter Care Teams Power Machine Operator Relationship Specialty Start Date End Date Yoli Townsend MD [address] [place], [place] PCP - General 06/09/19 documented as of this encounter
--- OUTSIDE RECORDS SUMMARY | 2025-04-21 15:31 | XMS_ITS | Encounter Summary ---
Author Organization [facility] Address [address] [place] [address] Phone Care Team Providers Care Vamp Stitcher Name Role Phone Yoli Townsend MD Primary Care Provider Encounter Details Date Type Department Care Team (Late Contact Info) Description 02/21/2022 Documentation Only [facility] [address] [place] [address] Chester Ventura MD [address] [place] [address] [place] [address] Social History Tobacco Use Types [...] [facility] [address] [place] [address] Chester Ventura MD [address] [place] [address] [place] [address] documented as of this encounter Visit Diagnoses Not on filedocumented in this encounter Care Teams Vamp Stitcher Relationship Specialty Start Date End Date Yoli Townsend MD [address] [place], [place] PCP - General 06/09/19 documented as of this encounter
--- OUTSIDE RECORDS SUMMARY | 2025-04-21 15:31 | XMS_ITS | Encounter Summary ---
Author Organization [facility] Address [address] [place] [address] Phone Care Team Providers Care Engraver Hand Hard Metals Name Role Phone Yoli Townsend MD Primary Care Provider [phone] Encounter Details Date Type Department Care Team (Late st Contact Info) Description 10/08/2023 Documentation Only [facility] [address] [address] Liliya Pérez [address] [place] [address] Social History Tobacco Use Types [...] Visit [facility] [address] [place] [address] Chester Ventura MD [address] [place] [address] [place] [address] documented as of this encounter Visit Diagnoses Not on filedocumented in this encounter Care Teams Engraver Hand Hard Metals Relationship Specialty Start Date End Date Yoli Townsend MD [address] [place], [place] PCP - General 06/09/19 documented as of this encounter
== END 2025-04-21 12:01 | disposition home or self-care (01) ==
LOC: HO.US 12:00
PROVIDERS: PCP Internal Medicine; Visit Provider Internal Medicine
DX: N20.0 Calculus of kidney (principal)
CPT/HCPCS: 76775

== ENCOUNTER → 2025-04-21 12:02 | Outpatient (BNV) | payer OTHER, SELFPAY | PROVIDERS: PCP Internal Medicine; Visit Provider Radiology Diagnostic Radiology | DX: N20.0 Calculus of kidney (principal); N28.1 Cyst of kidney, acquired | CPT/HCPCS: 76775 ==

== ENCOUNTER 2025-04-22 09:36 | Outpatient (AMB) | payer OTHER, SELFPAY ==
--- NOTE | 2025-04-22 09:35 | MHC.PC.OV ---
Intake Visit Reasons: dm Executive Officer Special Warfare Team Required: No Accompanied by: Self / Same As Patient Allergies atorvastatin Allergy (Intermediate, Verified 04/22/25 10:23) elevated liver enzymes, elevated enzymes duloxetine (Cymbalta) Allergy (Intermediate, Verified 04/22/25 10:23) headache dapagliflozin (From [facility]) Adverse Reaction (Intermediate, Verified 04/22/25 10:23) Dizziness Medication List - Last Reconciled 04/22/25 by Yoli Padilla MD alclometasone 0.05% appl topical BID PRN azelastine-fluticasone 137-50 mcg/spray 1 spray intranasal BID blood sugar diagnostic (FreeStyle Lite Strips) 3 times a day blood-glucose meter (FreeStyle Lite Meter kit) As directed 3x/day calcium carbonate 500 mg PO BID 30 days cholecalciferol (vitamin D3) 25 mcg PO DAILY ciprofloxacin HCl 250 mg PO BID 10 days diclofenac sodium 1% 2 grams topical BID PRN empagliflozin (Jardiance) 25 mg PO DAILY 90 days evolocumab (Repatha Pushtronex) 420 mg (3.5 mL) subcut Q4W 90 days evolocumab (Repatha SureClick) 140 mg subcut Q2W 90 days ezetimibe 10 mg PO DAILY 90 days gabapentin 100 mg PO BEDTIME 30 days hydroxyzine HCl 25 mg PO BID PRN 7 days ketoconazole 2% Apply 10 mL to wet scalp, lather, leave on 5 minutes, and rinse. Apply once a day for 8 weeks. losartan 25 mg PO DAILY 90 days mecobalamin (vitamin B12) 1,000 mcg PO DAILY 90 days metformin 1,000 mg (2 x 500 mg) PO BID 90 days omeprazole 20 mg PO QAM PRN 90 days oxycodone-acetaminophen 5-325 mg (Percocet) 1 tab PO Q6-8H PRN pyridoxine (vitamin B6) 100 mg PO DAILY 90 days repaglinide 1- 2 tabs prior to dinner PO daily; administer within 15 minutes of a meal or snack 30 days rosuvastatin 40 mg PO DAILY semaglutide (Ozempic) 2 mg (0.75 mL) subcut QWEEK 4 weeks tamsulosin (Flomax) 0.4 mg PO DAILY tizanidine 2 mg PO Q8H PRN 30 days tramadol 50 mg PO BID PRN tramadol 50 mg PO BID PRN 30 days Tobacco use date assessed: 04/22/25 Fall risk assessment: No Falls in past year Last assessed Fall Risk: 04/22/25 Dental Screening Dental Screen Date: 04/22/25 Did you have a dental visit in the last 12 months?: Yes Did you have a dental problem in the last 6 months where you did not have access to dental care?: No Was dental information given to patient?: Patient has dentist HPI HPI Comments History of Present Illness Details This is a 64-year-old female with diabetes mellitus type 2, renal stones, hypertension, hyperlipidemia, and mild to moderate recurrent major depression telehealth visit by phone for follow-up of her conditions. Blood pressure at home has wean less than 140/90. Blood glucose has been from 100-120 at home. Lipid panel will be order and her LDL goal should be less than 70. Last ultrasound shows nonobstructive bilateral kidney stones and this is follow by Urology. Depression has been in remission. [facility] Medical History Seborrheic dermatitis Diverticulitis History of kidney stones Abdominal pain Tachycardia Renal cyst Chronic GERD Polyarthralgia Left shoulder pain Right foot pain Renal calculus, bilateral Mild major depression, single episode Morbid obesity with BMI of 40.0-44.9, adult Diabetes type 2, uncontrolled Iron deficiency anemia Osteopenia Left foot pain Postmenopausal Vitamin D deficiency Elevated LFTs Thyroid nodule Type 2 diabetes mellitus with other diabetic kidney complication Proteinuria Hyperlipidemia LDL goal <100 Obesity due to excess calories Essential hypertension Pure hypercholesterolemia Venous thrombosis of upper extremity Diabetes mellitus, type II Spondylosis, cervical Fatty liver Metatarsalgia Arthropathy of knee Surgical History H/O colonoscopy History of extraction of renal calculus History of removal of cyst History of shoulder surgery History of cholecystectomy History of total abdominal hysterectomy and bilateral salpingo-oophorectomy Status post rotator cuff repair Family History Father Stomach cancer Liver cancer Mother Myocardial infarct Diabetes CVD (cardiovascular disease) Sister Cervical cancer Brother Murder Social History Household Members: Children Housing: House Alcohol intake: never Patient Tobacco Use Status: Never used Tobacco e-Cigarette/Vaping Use: Never Used Second Hand Smoke Exposure: No service: No Current occupational status: disabled Current occupation: right handed Cognitive needs: Yes (Pt use a cane) Hearing needs: No Vision needs: No Questionnaire Thrive Questionnaire Date Thrive assessed: 11/06/24 HENRIETTA-7 AMB Questionnaire HENRIETTA-7 Date HENRIETTA - 7 assessed: 11/13/24 Source: Developed by Drs. Kostas Simeon, Mary Smith, Lb Barrett and colleagues, with an educational rachael from [employer]. Review of Systems Const All systems reviewed & are unremarkable except as noted in HPI and below Card Denies chest pain at rest, Denies chest pain with activity, Denies edema, Denies irregular heart rhythm, Denies claudication, Denies dyspnea, Denies dyspnea on exertion, Denies orthopnea, Denies paroxysmal nocturnal dyspnea and Denies slow heart rate Resp Denies cough, Denies dyspnea and Denies dyspnea on exertion GI Denies abdominal pain, Denies change in bowel habits, Denies excessive flatus, Denies nausea and Denies vomiting Denies urinary incontinence, Denies urinary hesitancy and Denies urinary urgency Musc Denies atrophy, Denies deformity and Denies limited range of motion Physical exam (Primary Care) Tobacco/Smoking Status: Tobacco use Status Tobacco use date assessed 04/22/25 04/22/25 09:40 Patient Tobacco Use Status Never used Tobacco 04/22/25 09:35 e-Cigarette/Vaping Use Never Used 04/22/25 09:35 Thrive Assessment: Date of Thrive Assessment Date Thrive assessed 11/06/24 04/22/25 09:35 Telehealth Telehealth Telehealth Platform: Telephone Location of provider rendering services: practice address Location of patient: address on file Patient Identification confirmed using: Name, : Yes Telehealth method: voice only Patient verbally consented to treatment: Yes Patient verbally consented to billing insurance company: Yes Patient informed of any privacy concerns related to visit: Yes Minutes spent on Phone/Video with Pt.: 15 Coding Level of Care Code Tele Est Pt Level 4 (97983) Diagnoses MDD (major depressive disorder), recurrent episode, moderate F33.1 Essential hypertension I10 Pure hypercholesterolemia E78.00 Type 2 diabetes mellitus with hyperglycemia, without long-term current use of insulin E11.65 Diabetes mellitus long term care phlebotomist insulin use: without long term care phlebotomist use Diabetes mellitus complication status: with hyperglycemia Renal calculus, bilateral N20.0 Time Spent (min) 15 Assessment & Plan Assessment & Plan (1) MDD (major depressive disorder), recurrent episode, moderate: Code(s): F33.1 - Major depressive disorder, recurrent, moderate Category: Medical (2) Essential hypertension: Code(s): I10 - Essential (primary) hypertension Category: Medical (3) Pure hypercholesterolemia: Code(s): E78.00 - Pure hypercholesterolemia, unspecified Category: Medical (4) Diabetes mellitus, type II: Code(s): E11.9 - Type 2 diabetes mellitus without complications Category: Medical Qualifiers: Diabetes mellitus long-term insulin use: without long term care phlebotomist use Diabetes mellitus complication status: with hyperglycemia Qualified Code(s): E11.65 - Type 2 diabetes mellitus with hyperglycemia (5) Renal calculus, bilateral: Code(s): N20.0 - Calculus of kidney Category: Medical Plan Continue current meds. A1c goal is equal or less than 7%. Blood pressure goal is equal or less than 130/80. LDL goal is less than 70. Follow-up with Urology for kidney stones. Orders: Orders Lipid Panel Today E78.5 - Hyperlipidemia, unspecified Microalbumin, Random (w Creat) Today R80.9 - Proteinuria, unspecified Vitamin B12 and Folate Today E53.8 - Deficiency of other specified B group vitamins Vitamin D 25-OH Total Today E55.9 - Vitamin D deficiency, unspecified Comprehensive [place]. Panel Fast Today I10 - Essential (primary) hypertension
== END 2025-04-22 12:32 | disposition home or self-care (01) ==
LOC: HO.HMCH 09:36
PROVIDERS: PCP Internal Medicine; Visit Provider Internal Medicine
DX: F33.1 Major depressive disorder, recurrent, moderate (principal); I10 Essential (primary) hypertension; E78.00 Pure hypercholesterolemia, unspecified; E11.65 Type 2 diabetes mellitus with hyperglycemia; N20.0 Calculus of kidney

== ENCOUNTER 2025-04-23 13:38 | Outpatient (AMB) | payer OTHER, SELFPAY ==
--- OUTSIDE RECORDS SUMMARY | 2025-04-23 13:51 | XMS_ITS | Encounter Summary ---
Author Organization [facility] [place], Address [address] [place] [address] Phone Care Team Providers Care Credit Risk Modeler Name Role Phone Yoli Townsend MD Primary Care Provider [phone] Encounter Details Date Type Department Care Team (Late Contact Info) Description 11/30/2022 Documentation Only [facility] Dr [address] [place] [phone] Chester Ventura MD [address] [place] [address] [place] [address] Social History Tobacco Use Types [...] Visit [facility] [address] [place] [address] Chester Ventura MD [address] [place] [address] [place] [address] documented as of this encounter Visit Diagnoses Not on filedocumented in this encounter Care Teams Credit Risk Modeler Relationship Specialty Start Date End Date Yoli Townsend MD [address] [place] PCP - General 06/09/19 documented as of this encounter
--- OUTSIDE RECORDS SUMMARY | 2025-04-23 13:51 | XMS_ITS | Encounter Summary ---
Author Organization [facility] Address [address] [place] [address] Phone Care Team Providers Care 2Nd Pressman Name Role Phone Yoli Townsend MD Primary Care Provider [phone] Encounter Details Date Type Department Care Team (Late Contact Info) Description 02/21/2022 Documentation Only [facility] [address] [place] [address] Chester Ventura MD [address] [place] [address] [place] [address] Social History Tobacco Use Types [...] Visit [facility] [address] [place] [address] Chester Ventura MD [address] [place] [address] [place] [address] documented as of this encounter Visit Diagnoses Not on filedocumented in this encounter Care Teams 2Nd Pressman Relationship Specialty Start Date End Date Yoli Townsend MD [address] [place], [place] PCP - General 06/09/19 documented as of this encounter
--- OUTSIDE RECORDS SUMMARY | 2025-04-23 13:51 | XMS_ITS | Encounter Summary ---
Author Organization [facility] Address [address] [facility] 7t [place] [address] Care Team Providers Care Assembly Machine Set Up Mechanic Name Role Phone Unavailable Primary Care Provider [...]
--- OUTSIDE RECORDS SUMMARY | 2025-04-23 13:51 | XMS_ITS | Encounter Summary ---
Author Organization [facility] Address [address] [place] [address] Phone Care Team Providers Care Carver Hand Name Role Phone Yoli Townsend MD Primary Care Provider [phone] Encounter Details Date Type Department Care Team (Late st Contact Info) Description 09/27/2023 Documentation Only [facility] [address] [place] [address] Liliya Pérez [address] [place] [address] Social History Tobacco Use Types [...] Visit [facility] [address] [place] [address] Chester Ventura MD [address] [place] [address] [place] [address] documented as of this encounter Visit Diagnoses Not on filedocumented in this encounter Care Teams Carver Hand Relationship Specialty Start Date End Date Yoli Townsend MD [address] [place], [place] PCP - General 06/09/19 documented as of this encounter
--- OUTSIDE RECORDS SUMMARY | 2025-04-23 13:51 | XMS_ITS | Encounter Summary ---
Author Organization [facility] Address [address] [place] [address] Phone Care Team Providers Care Rail Car Operator Name Role Phone Yoli Townsend MD Primary Care Provider Encounter Details Date Type Department Care Team (Late Contact Info) Description 12/04/2022 Documentation Only [facility] [address] [place] [address] Chester Ventura MD [address] [place] [address] [place] [address] Social History Tobacco Use Types [...] [facility] [address] [place] [address] Chester Ventura MD [address] [place] [address] [place] [address] documented as of this encounter Visit Diagnoses Not on filedocumented in this encounter Care Teams Rail Car Operator Relationship Specialty Start Date End Date Yoli Townsend MD [address] [place], [place] PCP - General 06/09/19 documented as of this encounter
--- OUTSIDE RECORDS SUMMARY | 2025-04-23 13:51 | XMS_ITS | Encounter Summary ---
Author Organization [facility] Address [address] [place] [address] Phone Care Team Providers Care Refrigerator Repair Technician Name Role Phone Yoli Townsend MD Primary Care Provider [phone] Encounter Details Date Type Department Care Team (Late st Contact Info) Description 10/08/2023 Documentation Only [facility] [address] [place] [address] Liliya Pérez [address] [place] [address] Social History Tobacco Use Types [...] Visit [facility] [address] [place] [address] Chester Ventura MD [address] [place] [address] [place] [address] documented as of this encounter Visit Diagnoses Not on filedocumented in this encounter Care Teams Refrigerator Repair Technician Relationship Specialty Start Date End Date Yoli Townsend MD [address] [place], [place] PCP - General 06/09/19 documented as of this encounter
--- OUTSIDE RECORDS SUMMARY | 2025-04-23 13:51 | XMS_ITS | Encounter Summary ---
Author Organization [facility] Address [address] [place] [address] Phone Care Team Providers Care Hospitality Internship Name Role Phone Yoli Townsend MD Primary Care Provider [phone] Encounter Details Date Type Department Care Team (Late st Contact Info) Description 12/30/2024 Documentation Only [facility] [address] [place] [address] Liliya Pérez [address] [place] [address] Social History Tobacco Use Types [...] Visit [facility] [address] [place] [address] Chester Ventura MD [address] [place] [address] [place] [address] documented as of this encounter Visit Diagnoses Not on filedocumented in this encounter Care Teams Hospitality Internship Relationship Specialty Start Date End Date Yoli Townsend MD [address] [place], [place] PCP - General 06/09/19 documented as of this encounter
--- OUTSIDE RECORDS SUMMARY | 2025-04-23 13:51 | XMS_ITS | Encounter Summary ---
Author Organization [facility] Address [address] [place] [address] Phone Care Team Providers Care Mechanical Maintenance Worker Name Role Phone Yoli Townsend MD Primary Care Provider [phone] Encounter Details Date Type Department Care Team (Late Contact Info) Description 12/04/2022 Documentation Only [facility] [address] [place] [address] Chester Ventura MD [address] [place] [address] [place] [address] Social History Tobacco Use Types [...] [facility] [address] [place] [address] Chester Ventura MD [address] [place] [address] [place] [address] documented as of this encounter Visit Diagnoses Not on filedocumented in this encounter Care Teams Mechanical Maintenance Worker Relationship Specialty Start Date End Date Yoli Townsend MD [address] [place], [place] PCP - General 06/09/19 documented as of this encounter
--- OUTSIDE RECORDS SUMMARY | 2025-04-23 13:51 | XMS_ITS | Encounter Summary ---
Author Organization [facility], Address [address] [place] [address] Phone Care Team Providers Care Hand Spring Former Name Role Phone Yoli Townsend MD Primary Care Provider [phone] Reason for Visit * Reason Comments Med Refill Encounter Details Date Type Department Care Team (Late Contact Info) Description 02/18/2020 Refill [facility] [address] [place] [address] Chester Ventura MD [address] [facility] [place] [address] Social History Tobacco Use Types [...] Visit [facility] [place], [address] [place] [address] Chester Ventura MD [address] [facility] [place] [address] documented as of this encounter Visit Diagnoses Not on filedocumented in this encounter Care Teams Hand Spring Former Relationship Specialty Start Date End Date Yoli Townsend MD [address] [place], [place] PCP - General 06/09/19 documented as of this encounter
--- OUTSIDE RECORDS SUMMARY | 2025-04-23 13:51 | XMS_ITS | Encounter Summary ---
Author Organization [facility] Address [address] [place] [address] Phone Care Team Providers Care Lactation Coordinator Name Role Phone Yoli Townsend MD Primary Care Provider [phone] Encounter Details Date Type Department Care Team (Late Contact Info) Description 06/12/2023 Documentation Only [facility] [address] [place] [address] Chester Ventura MD [address] [place] [address] [place] [address] Social History Tobacco Use Types [...] [facility] [address] [place] [address] Chester Ventura MD [address] [place] [address] [place] [address] documented as of this encounter Visit Diagnoses Not on filedocumented in this encounter Care Teams Lactation Coordinator Relationship Specialty Start Date End Date Yoli Townsend MD [address] [place], [place] PCP - General 06/09/19 documented as of this encounter
--- OUTSIDE RECORDS SUMMARY | 2025-04-23 13:51 | XMS_ITS | Encounter Summary ---
Author Organization [facility] Address [address] [place] [address] Phone Care Team Providers Care Director Of Nursing Name Role Phone Yoli Townsend MD Primary Care Provider [phone] Encounter Details Date Type Department Care Team (Late Contact Info) Description 06/18/2022 Documentation Only [facility] [address] [place] [address] Chester Ventura MD [address] [place] [address] [place] [address] Social History Tobacco Use Types [...] Visit [facility] [address] [place] [address] Chester Ventura MD [address] [place] [address] [place] [address] documented as of this encounter Visit Diagnoses Not on filedocumented in this encounter Care Teams Director Of Nursing Relationship Specialty Start Date End Date Yoli Townsend MD [address] [place], [place] PCP - General 06/09/19 documented as of this encounter
--- OUTSIDE RECORDS SUMMARY | 2025-04-23 13:51 | XMS_ITS | Encounter Summary ---
Author Organization [facility] Address [address] [place] [address] Phone Care Team Providers Care Banquet Pilot Name Role Phone Yoli Townsend MD Primary Care Provider [phone] Encounter Details Date Type Department Care Team (Late Contact Info) Description 06/01/2022 Documentation Only [facility] [address] [place] [address] Chester Ventura MD [address] [place] [address] [place] [address] Social History Tobacco Use Types [...] Visit [facility] [address] [place] [address] Chester Ventura MD [address] [place] [address] [place] [address] documented as of this encounter Visit Diagnoses Not on filedocumented in this encounter Care Teams Banquet Pilot Relationship Specialty Start Date End Date Yoli Townsend MD [address] [place], [place] PCP - General 06/09/19 documented as of this encounter
--- OUTSIDE RECORDS SUMMARY | 2025-04-23 13:51 | XMS_ITS | Encounter Summary ---
Author Organization [facility] Address [address] [place] [address] Phone Care Team Providers Care Fruit Thinner Name Role Phone Yoli Townsend MD Primary Care Provider [phone] Encounter Details Date Type Department Care Team (Late st Contact Info) Description 10/07/2023 Documentation Only [facility] [address] [place] [place] [address] Liliya Pérez [address] [place] [address] Social History Tobacco Use Types [...] Visit [facility] [address] [place] [place] [address] Chester Ventura MD [address] [place] [address] [place] [address] documented as of this encounter Visit Diagnoses Not on filedocumented in this encounter Care Teams Fruit Thinner Relationship Specialty Start Date End Date Yoli Townsend MD [address] [place], [place] PCP - General 06/09/19 documented as of this encounter
--- OUTSIDE RECORDS SUMMARY | 2025-04-23 13:51 | XMS_ITS | Patient Health Record ---
Author Organization [facility] Address [address] [place] [address] Care Team Providers Care Front Office Specialist Name Role Phone Yoli Townsend Primary Care Provider UnavailKostas Love Unavailable [phone] Allergies No Known Allergies Results Component Value Reference Range Notes Complete Blood Count Auto Di ff Reviewed date:06/11/2024 01:39:17 PM Interpretation: Performing Lab:[facility], [address] [place] [phone] Notes/Report: White Blood Count 6.8 4.8-10.8 X10*3/uL [...] INR Reviewed date:06/11/2024 01:39:24 PM Interpretation: Performing Lab:[facility], [address] [place] [phone] Notes/Report: Prothrombin Time 11.5 10.9-12.4 SEC [employer]NATIONAL [...] A2 Reviewed date:06/17/2024 05:10:57 PM Interpretation: Performing Lab:[facility], [address] [place] [address] Notes/Report: Lipoprotein Asso Phospholip A2 106 <124 Result Units: nmol/min/mL This test was developed and its analytical performance characteristics have been determined by [facility]. It has not been cleared or approved by the U.S. Food and Drug Administration. This assay has been validated pursuant to the CLIA regulations and is used for clinical purposes. Relative Risk: Optimal <=123 nmol/min/mL; High >123 nmol/min/mL. See Note 1 Note 1 This test was developed and its analytical performance characteristics have been determined by [employer]. It has not been cleared or approved by the FDA. This assay has been validated pursuant to the CLIA regulations and is used for clinical purposes. THIS TEST WAS PERFORMED AT: [facility] [address] [facility] [place] [address] ERIN TURNER,PHD,[facility] Apolipoprotein B Reviewed date:06/17/2024 05:10:38 PM Interpretation: Performing Lab:[facility], [address] [place] [address] Notes/Report: Apolipoprotein B 121 <90 mg/dL Reference Range: <90 Risk Category: Optimal < 90 Moderate 90 - 119 High > or = 120 Cardiovascular event risk category cut points (optimal, moderate, high) are based on National Lipid Association recommendations-Joya TA et al. J Clin Lipid. 2015;9:129-169 and Etelvina PS et al. Endocr Pract. 2017;23(Suppl 2):1-87. THIS TEST WAS PERFORMED AT: [employer]/[address] [address] GONZALO ALVARADO MD,PHD Vitamin B12 and Folate Reviewed date:06/11/2024 01:40:13 PM Interpretation: Performing Lab:[facility], [address] [place] [address] Notes/Report: Vitamin B12 804 200-900 pg/mL NORMAL 200-900 PG/ML INDETERMINATE 160-199 PG/ML DEFICIENT < 160 PG/ML Folate 14.7 > or = 4.0 ng/mL Reference Values: > or = 4.0 ng/mL < 4.0 ng/mL suggests folate deficiency Methotrexate, aminopterin and folinic acid (leucovorin) are chemotherapeutic agents whose molecular structures are similar to folate; therefore, the Machine Spreader folate assay cannot be used for patients using these drugs. Vitamin D 25-OH Total Reviewed date:06/11/2024 01:39:39 PM Interpretation: Performing Lab:[facility], [address] [place] [address] Notes/Report: Vitamin D 25-OH Total 27.9 >30 [...] Random Reviewed date:06/11/2024 01:38:36 PM Interpretation: Performing Lab:[facility], [address] [place] [address] Notes/Report: Creatinine Urine 88.40 Microalbumin Urine 152.0 Microalbum/Creatinine Ratio Ur 171.9 <30 ug/mg cr Albumin/Creatinine Ratio Reference Ranges: Normal: < 30 ug/mg creatinine Microalbuminuria: 30 - 300 ug/mg creatinine Clinical Albuminuria: > 300 ug/mg creatinine US abdomen comp w elastograp hy (Not yet reviewed by provider) Interpretation: Performing Lab: Notes/Report: [address] [address] Ultrasound Report Signed Patient: Heather Combs MR#: [id number] : 1960 Acct:[id number] Age/Sex: 64 / F ADM Date: 06/11/24 Loc: HO.US Attending Dr: Kostas Erazo MD Ordering Physician: Kostas Erazo MD Date of Service: 06/11/24 Procedure(s): US abdomen comp w elastography Accession Number(s): [id number] cc: Yoli Townsend MD; Kostas Erazo MD [...] by: Daljit Last MD 08/13/2024 11:52 PM [facility] Dictated By: Daljit Last MD Signed By: <Electronically signed by Daljit Last MD in OV> 08/13/24 2352 DD/ 0807 TD/TT: 06/11/24 0830 Cutter Finisher: SS Reason For Referral No Information Medications [...] Problem Screening for malignant neoplasm of colon (032754582) Encounter for screening for malignant neoplasm of colon (Z12.11) Active confirmed Problem Hepatic fibrosis (24350890) Hepatic fibrosis (K74.0) Active confirmed Problem 633848222 Elevated liver enzymes (R74.8) Active confirmed Problem 057943867 Fatty liver (K76.0) Active confirmed Problem 09901617 Liver fibrosis (K74.0) Active confirmed Problem Gastroesophageal reflux disease (561442484) GERD without esophagitis (K21.9) Active confirmed Problem Diverticulosis of colon (659980469) Diverticulosis of colon (K57.30) Active confirmed Problem Hepatic fibrosis (disorder) (65294929) Liver fibrosis (K74.00) Active confirmed Vital Signs Blood pressure diastolic 00 mm Hg 05/28/2024 Height 61 in 05/28/2024 Blood pressure systolic 00 mm Hg 05/28/2024 Weight 197 lbs 05/28/2024 BMI 37.22 kg/m2 05/28/2024 Encounters Encounter Location Date Provider Diagnosis [facility] [address] [place] [address] 05/28/2024 Kostas Erazo Fatty liver K76.0 ; [...] again for allowing me to participate in Heathre's care. I shall continue to keep you [...] Provider Name:Kostas Erazo , 06/15/2025 10:30:00 AM, [address] [place] [address], [address], [place], [address], Insurance Providers Payer Name Payer Address Payer Phone Subscriber Number Group Number Insured Name Patient Relationship to Insured Coverage Start Date Coverage End Date [facility] [address] [address] [place], [place] [id number] [phone] [id number] HEATHER COMBS Self - patient is the insured MEDICAID OF [facility] [address] [place] [phone] [id number] HEATHER COMBS Self - patient is the insured Medical (General) History Medical History History ICD Code Diabetes HTN Denies UT,CVA,Lung disease,renal disease Kidney stones, s/p lithotripsy hyperlipidemia GERD steatohepatitis, with a live r biopsy in May of 2012 reviewing mild hepatitis and some fibrosis she had a colonoscopy in December of 2011 [facility] was negative for polyps she [...]
--- OUTSIDE RECORDS SUMMARY | 2025-04-23 13:51 | XMS_ITS | Encounter Summary ---
Author Organization [facility], Address [address] [place] [address] Phone Care Team Providers Care International Student Advisor Name Role Phone Yoli Townsend MD Primary Care Provider Reason for Visit * Reason Comments Med Refill Encounter Details Date Type Department Care Team (Late Contact Info) Description 02/17/2020 Refill [facility] [address] [place] [address] Chester Ventura MD [address] [place] [address] Social History Tobacco Use Types [...] Visit [facility] [place], [address] [place] [address] Chester Ventura MD [address] [place] [address] documented as of this encounter Visit Diagnoses Not on filedocumented in this encounter Care Teams International Student Advisor Relationship Specialty Start Date End Date Yoli Townsend MD [address] [place], [place] PCP - General 06/09/19 documented as of this encounter
--- OUTSIDE RECORDS SUMMARY | 2025-04-23 13:51 | XMS_ITS | Encounter Summary ---
Author Organization [facility] [place], Address [address] [place] [address] Phone Care Team Providers Care Advertising Assistant Manager Name Role Phone Yoli Townsend MD Primary Care Provider [phone] Encounter Details Date Type Department Care Team (Late Contact Info) Description 06/12/2023 Documentation Only [facility] [address] [place] [address] Chester Ventura MD [address] [place] [address] [place] [address] Social History Tobacco Use Types [...] Visit [facility] [address] [place] [address] Chester Ventura MD [address] [place] [address] [place] [address] documented as of this encounter Visit Diagnoses Not on filedocumented in this encounter Care Teams Advertising Assistant Manager Relationship Specialty Start Date End Date Yoli Townsend MD [address] [place] PCP - General 06/09/19 documented as of this encounter
--- OUTSIDE RECORDS SUMMARY | 2025-04-23 13:51 | XMS_ITS | Encounter Summary ---
Author Organization [facility] Address [address] [place] [address] Phone Care Team Providers Care Feed Mill Supervisor Name Role Phone Yoli Townsend MD Primary Care Provider [phone] Encounter Details Date Type Department Care Team (Late Contact Info) Description 06/06/2022 Documentation Only [facility] Of [address] [place] [address] Chester Ventura MD [address] [place] [address] [place] [address] Social History Tobacco Use Types [...] [facility] [address] [place] [address] Chester Ventura MD [address] [place] [address] [place] [address] documented as of this encounter Visit Diagnoses Not on filedocumented in this encounter Care Teams Feed Mill Supervisor Relationship Specialty Start Date End Date Yoli Townsend MD [address] [place], [place] PCP - General 06/09/19 documented as of this encounter
--- OUTSIDE RECORDS SUMMARY | 2025-04-23 13:51 | XMS_ITS | Encounter Summary ---
Author Organization [facility] [facility] Address [address] [facility] 7[address] [place] [address] Care Team Providers Care Furnace Mechanic Name Role Phone Unavailable Primary Care [...]
--- OUTSIDE RECORDS SUMMARY | 2025-04-23 13:51 | XMS_ITS | Encounter Summary ---
Author Organization [facility] Address [address] [place] [address] Phone Care Team Providers Care Registered Midwife Name Role Phone Yoli Townsend MD Primary Care Provider [phone] Encounter Details Date Type Department Care Team (Late st Contact Info) Description 09/27/2023 Documentation Only [facility] [address] [place] [address] Liliya Pérez [address] [place] [address] Social History Tobacco Use Types [...] [facility] [address] [place] [address] Chester Ventura MD [address] [place] [address] [place] [address] documented as of this encounter Visit Diagnoses Not on filedocumented in this encounter Care Teams Registered Midwife Relationship Specialty Start Date End Date Yoli Townsend MD [address] [place], [place] PCP - General 06/09/19 documented as of this encounter
--- OUTSIDE RECORDS SUMMARY | 2025-04-23 13:51 | XMS_ITS | Encounter Summary ---
Author Organization [facility] Address [address] [place] [address] Phone Care Team Providers Care Hr Coordinator Name Role Phone Yoli Townsend MD Primary Care Provider [phone] Encounter Details Date Type Department Care Team (Late st Contact Info) Description 06/23/2024 Office Communication [facility] Dr [address] [place] [phone] Chester Ventura MD [address] [place] [address] [place] [address] Social History Tobacco Use Types [...] Visit [facility] [address] [facility] [place] [address] Chester Ventura MD [address] [place] [address] [place] [address] documented as of this encounter Visit Diagnoses Not on filedocumented in this encounter Care Teams Hr Coordinator Relationship Specialty Start Date End Date Yoli Townsend MD [address] [place] PCP - General 06/09/19 documented as of this encounter
--- OUTSIDE RECORDS SUMMARY | 2025-04-23 13:51 | XMS_ITS | Clinical Summary ---
Author Organization [facility] Address [address] [place] [address] 7t [place] [address] Care Team Providers Care Technical Service Engineer Name Role Phone Unavailable Primary Care Provider [...]
--- OUTSIDE RECORDS SUMMARY | 2025-04-23 13:51 | XMS_ITS | Encounter Summary ---
Author Organization [facility] [place], Address [address] [place] [address] Phone Care Team Providers Care Finisher Polisher Name Role Phone Yoli Townsend MD Primary Care Provider [phone] Encounter Details Date Type Department Care Team (Late Contact Info) Description 06/10/2023 Documentation Only [facility] Dr [address] [place] [phone] Chester Ventura MD [address] [place] [address] [place] [address] Social History Tobacco Use Types [...] Visit [facility] [address] [place] [address] Chester Ventura MD [address] [place] [address] [place] [address] documented as of this encounter Visit Diagnoses Not on filedocumented in this encounter Care Teams Finisher Polisher Relationship Specialty Start Date End Date Yoli Townsend MD [address] [place] PCP - General 06/09/19 documented as of this encounter
--- OUTSIDE RECORDS SUMMARY | 2025-04-23 13:51 | XMS_ITS | Clinical Summary ---
Author Organization [facility] [place], Address [address] [place] [address] [place] [address] Phone Care Team Providers Care Refractory Products Supervisor Name Role Phone Yoli Townsend MD Primary Care Provider [phone] Allergies Active Allergy Reactions Criticality Noted Date [...] 0 Active ergocalciferol (VITAMIN D2) 1.25 MG (03288 UT) capsule TOME 1 CAPSULA POR VIA [...] Hypertension Father Diabetes Mother Heart disease Mother VA Hypertension Mother Cancer Sister Relation Status Comments [...] Visit [facility] [place], [address] [place] [address] Chester Ventura MD [address] [place] [address] Health Maintenance Due Date Last Done [...] PM EDT) Hemoglobin A1C 8.1(H) (4-6) % [place] [address] Comment: HEMOGLOBIN A1C(%) GLUCOSE CONTROL INDEX <6% EXCELLENT 6-7% VERY GOOD 7-8% GOOD 8-10% FAIR >10% POOR Hemoglobin (Hb) A1c testing is performed by Lary Roselyn-quant immunoassay. Any cause of shortened erythrocyte survival will reduce exposure of erythrocytes to glucose with a consequent decrease in Hb A1c (%). Testing performed or reported by ~[facility], ~a Service of [facility], ~[address] [place] [id number]~ 02/09/2019 3:56 PM EDT us Chester Ventura MD LAB BLOOD ORDERABLES Final Resul t [facility] from Last 3 Months or Most Recently Relevant to Health Maintenance Insurance [place] [address] [employer] Care Teams Refractory Products Supervisor Relationship Specialty Start Date End Date Yoli Townsend MD [address] [place] [address] PCP - General 06/09/19
--- NOTE | 2025-04-23 14:08 | A.OFFVIS_ITS ---
Intake Visit Reasons: ESWL follow up/US/KUB Intake Note: Patient presents to office today for ESWL follow up/US/KUB * 04/21 Renal US Urology medications: Vitamin B6, Vitamin B12, Tamsulosin Blood thinners: none Advanced Clinical Specialist Required: Yes Advanced Clinical Specialist Name: [id number] Information Interpreted: non-clinical & clinical Accompanied by: Self / Same As Patient Allergies atorvastatin Allergy (Intermediate, Verified 04/23/25 14:14) elevated liver enzymes, elevated enzymes duloxetine (Cymbalta) Allergy (Intermediate, Verified 04/23/25 14:14) headache dapagliflozin (From [facility]) Adverse Reaction (Intermediate, Verified 04/23/25 14:14) Dizziness Medication List - Last Reconciled 04/23/25 by Trudy Trevino MD alclometasone 0.05% appl topical BID PRN azelastine-fluticasone 137-50 mcg/spray 1 spray intranasal BID blood sugar diagnostic (FreeStyle Lite Strips) 3 times a day blood-glucose meter (FreeStyle Lite Meter kit) As directed 3x/day calcium carbonate 500 mg PO BID 30 days cholecalciferol (vitamin D3) 25 mcg PO DAILY ciprofloxacin HCl 250 mg PO BID 10 days diclofenac sodium 1% 2 grams topical BID PRN empagliflozin (Jardiance) 25 mg PO DAILY 90 days evolocumab (Repatha Pushtronex) 420 mg (3.5 mL) subcut Q4W 90 days evolocumab (Repatha SureClick) 140 mg subcut Q2W 90 days ezetimibe 10 mg PO DAILY 90 days gabapentin 100 mg PO BEDTIME 30 days hydroxyzine HCl 25 mg PO BID PRN 7 days ketoconazole 2% Apply 10 mL to wet scalp, lather, leave on 5 minutes, and rinse. Apply once a day for 8 weeks. losartan 25 mg PO DAILY 90 days mecobalamin (vitamin B12) 1,000 mcg PO DAILY 90 days metformin 1,000 mg (2 x 500 mg) PO BID 90 days omeprazole 20 mg PO QAM PRN 90 days oxycodone-acetaminophen 5-325 mg (Percocet) 1 tab PO Q6-8H PRN pyridoxine (vitamin B6) 100 mg PO DAILY 90 days repaglinide 1- 2 tabs prior to dinner PO daily; administer within 15 minutes of a meal or snack 30 days rosuvastatin 40 mg PO DAILY semaglutide (Ozempic) 2 mg (0.75 mL) subcut QWEEK 4 weeks tamsulosin (Flomax) 0.4 mg PO DAILY tizanidine 2 mg PO Q8H PRN 30 days tramadol 50 mg PO BID PRN tramadol 50 mg PO BID PRN 30 days HPI Comments Details: 04/23/2025--Kandice is followed for kidney stones she is status post ESWL. History of Present Illness The patient is a 64-year-old female presenting with kidney stones. She has a history of kidney stones and underwent extracorporeal shock wave lithotripsy (ESWL) on March 10, 2025, for a left kidney stone. The patient reports intermittent hematuria, with blood in the urine noted after the procedure, but no passage of stones. Review of prior urine collection indicated hypercalciuria, with calcium levels over 300 mg, exceeding the normal threshold of less than 200 mg. This condition may promote stone formation, prompting a repeat urine collection to evaluate current calcium levels and hydration status. 25 minutes spent in review of records pertaining to this visit and including [id number] discussion with the patient and documentation of this visit. Results - CT urogram on 04/12/25: KIDNEYS AND URETERS: Again noted are multiple bilateral simple renal cyst.The largest is in the lower left kidney measuring 12.5 cm long axis. It demonstrates an area of wall calcification posterior inferiorly without evidence of enhancing mural nodule. With coarse calcification along the posterior inferior wall of the cyst has been present since December 26, 2019. Although the cyst size has enlarged since then, no other changes have occurred. 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 Coarse parenchymal calcificat ion is again identified in the posterior mid to upper left kidney left kidney is malrotated with long axis directed anterior to posterior. There are few punctate 1-3 mm stones in both kidneys. Plan 1. Kidney Stones - Monitor stone for potential urinary obstruction. - 24 hr urine collection 2. Hypercalciuria, Medullary Sponge kidney - referral to Nephrology 01/15/25 History of Present Illness - The patient is a 64-year-old female presenting with nephrolithiasis. - She has a history of kidney stones, with larger stones in the left kidney. - Shockwave lithotripsy has been performed multiple times - A recent CT scan revealed renal cysts, which are being monitored. - Proteinuria was noted in the UA, and she is followed by a director of outpatient services. Results - CT scan in November showed renal cysts and kidney stones, with larger stones in the left kidney. - Urine analysis showed proteinuria. PFSH Medical History Seborrheic dermatitis Diverticulitis History of kidney stones Abdominal pain Tachycardia Renal cyst Chronic GERD Polyarthralgia Left shoulder pain Right foot pain Renal calculus, bilateral Mild major depression, single episode Morbid obesity with BMI of 40.0-44.9, adult Diabetes type 2, uncontrolled Iron deficiency anemia Osteopenia Left foot pain Postmenopausal Vitamin D deficiency Elevated LFTs Thyroid nodule Type 2 diabetes mellitus with other diabetic kidney complication Proteinuria Hyperlipidemia LDL goal <100 Obesity due to excess calories Essential hypertension Pure hypercholesterolemia Venous thrombosis of upper extremity Diabetes mellitus, type II Spondylosis, cervical Fatty liver Metatarsalgia Arthropathy of knee Surgical History H/O colonoscopy History of extraction of renal calculus History of removal of cyst History of shoulder surgery History of cholecystectomy History of total abdominal hysterectomy and bilateral salpingo-oophorectomy Status post rotator cuff repair Family History Father Stomach cancer Liver cancer Mother Myocardial infarct Diabetes CVD (cardiovascular disease) Sister Cervical cancer Brother Murder Social History Household Members: Children Housing: House Alcohol intake: never Patient Tobacco Use Status: Never used Tobacco e-Cigarette/Vaping Use: Never Used Second Hand Smoke Exposure: No service: No Current occupational status: disabled Current occupation: right handed Cognitive needs: Yes (Pt use a cane) Hearing needs: No Vision needs: No Review of Systems Const All systems reviewed & are unremarkable except as noted in HPI and below Reports no additional complaints Eyes Reports no additional complaints ENT Reports no additional complaints Card Reports no additional complaints Resp Reports no additional complaints GI Reports no additional complaints Reports as per HPI Musc Reports no additional complaints Skin/Breast Reports system reviewed and no additional complaints, except as documented Neuro Reports no additional complaints Psych Reports no additional complaints Endo Reports no additional complaints Luis Manuel/Lymph Reports no additional complaints Aller/Immun Reports no additional complaints Results Reviewed Results Reviewed: Date of Service: 04/12/25 Reason for Exam: Z87.442 - Personal history of urinary calculi EXAMINATION: CT ABDOMEN AND PELVIS WITHOUT AND WITH CONTRAST CLINICAL INFORMATION: Z87.442 - Personal history of urinary calculi Prior: November 19, 2024 TECHNIQUE: Noncontrast CT of the abdomen and pelvis is performed followed by split bolus contrast-enhanced images using 85 mL Omnipaque 350 contrast. Postcontrast imaging is performed during the combined nephrogram and excretion phase. Sagittal and coronal reformatted images were obtained on the technologist's workstation for both the precontrast and postcontrast phases. This CT examination was performed using dose optimization techniques as appropriate, variously including the following: *Automated exposure control *Adjustment of mA and/or kV according to patient size (this includes techniques or standardized protocols for targeted exams where dose is matched to indication/reason for exam; i.e. extremities or head) *Use of iterative reconstruction technique DLP: 1027 mGY*cm FINDINGS: LUNG BASES: The visualized lung bases are unremarkable. LIVER, GALLBLADDER, AND BILIARY TREE: Liver is unremarkable. The gallbladder is surgically absent. There are clips in the gallbladder fossa. There is minimal intra and moderate extra hepatic biliary duct dilation that was also present on the prior PANCREAS: Unremarkable. SPLEEN: Unremarkable. ADRENAL GLANDS: Unremarkable. KIDNEYS AND URETERS: Again noted are multiple bilateral simple renal cyst. The largest is in the lower left kidney measuring 12.5 cm long axis. It demonstrates an area of wall calcification posterior inferiorly without evidence of enhancing mural nodule. With coarse calcification along the posterior inferior wall of the cyst has been present since December 26, 2019. Although the cyst size has enlarged since then, no other changes have occurred. 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 There are few punctate 1-3 mm stones in both kidneys. After contrast, there is symmetric concentration and excretion of contrast into the ureters and bladder. BLADDER: Unremarkable. GASTROINTESTINAL TRACT: A few scattered pseudodiverticula are again noted in the colon. Appendix is within normal limits. ABDOMINAL WALL: No significant hernia is appreciated. LYMPH NODES: Normal. VASCULAR: Mild to moderate calcifications are present PELVIC VISCERA: Unremarkable. OSSEUS STRUCTURES: Unremarkable. IMPRESSION: Bosniak IIF left renal cyst with coarse calcifications along the posterior inferior wall. Although the simple cystic component has increased in size, the coarse nodular and linear calcifications are stable when compared with 2020 and there is no enhancing mural nodule. Medullary nephrocalcinosis. This can be related to medullary sponge kidney, distal anterior acidosis, hyperparathyroidism, and other metabolic etiologies. Small bilateral nonobstructing kidney stones and dystrophic calcification in the posterior left kidney, stable. Date of Service: 11/19/24 EXAMINATION: CT ABDOMEN AND PELVIS WITHOUT CONTRAST CLINICAL INFORMATION: Unspecified abdominal pain. COMPARISON: 01/21/2023. TECHNIQUE: Multidetector volumetric imaging was performed from the superior aspect of the liver through the pubic symphysis. Sagittal and coronal reformatted images were obtained on the technologist's workstation. This CT examination was performed using dose optimization techniques as appropriate, variously including the following: *Automated exposure control *Adjustment of mA and/or kV according to patient size (this includes techniques or standardized protocols for targeted exams where dose is matched to indication/reason for exam; i.e. extremities or head) *Use of iterative reconstruction technique FINDINGS: LUNG BASES: Lung bases are clear. Heart size is normal. GE junction is normal. There are no effusions. LIVER, GALLBLADDER, AND BILIARY TREE: Unenhanced liver is normal in size, contour, and appearance without focal lesion. No intrahepatic biliary dilatation. Mild prominence of the extrahepatic ducts measuring up to 1.5 cm is stable. Gallbladder is surgically absent. PANCREAS: Mild to moderate fatty atrophy. SPLEEN: Unenhanced spleen is normal. ADRENAL GLANDS: Unremarkable. KIDNEYS AND URETERS: Right kidney: No hydronephrosis or mass. There are cortical cysts, the largest in the upper pole measuring 4.3 x 3.3 cm. There are numerous tiny nonobstructing calculi in the lower pole regions measuring up to 3 mm. There is hyperattenuation of the renal pyramids suggesting medullary nephrocalcinosis. No ureteral dilatation. Left kidney: There is a large cyst in the mid to lower pole region measuring 12.5 x 11.8 x 12.0 cm. There are smaller cysts. There are stable dystrophic appearing calcifications in the upper pole dorsal region, unknown if this communicates with the collecting system. The larger more anterior calcification measures 2.0 cm in diameter. Stellate appearance. There are additional tiny nonobstructing calculi measuring up to 4 mm. No definite hydronephrosis or hydroureter. No definite masses. There is hyperattenuation of the renal pyramids suggesting medullary nephrocalcinosis. BLADDER: Decompressed. No abnormalities. GASTROINTESTINAL TRACT: The stomach, duodenum, and small bowel have a normal appearance. A normal appendix is visualized. The colon demonstrates a few scattered diverticula. No wall thickening. Normal course and caliber. There is a tiny amount of subtle inflammation surrounding a diverticulum in the sigmoid region (series 5, image 73) findings which could represent a mild case of acute diverticulitis. This is a very subtle finding. No rectal abnormality. ABDOMINAL WALL: No significant hernia is appreciated. LYMPH NODES: None enlarged. VASCULAR: Mild to moderate atheromatous calcification of the aorta and iliac arteries. No aneurysm. PELVIC VISCERA: There has been a hysterectomy. There are no adnexal masses. OSSEOUS STRUCTURES: There is no suspicious lytic or blastic bone lesion. There are very mild degenerative spinal changes. Normal SI joints. IMPRESSION: 1. Nonobstructing bilateral renal calculi. Stable dystrophic calculi in the left kidney. No hydronephrosis. Large left greater than right renal cysts. 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 Differential includes hypercalcemic states, medullary sponge kidney, RTA type I, and oxalosis. 2. Cholecystectomy. 3. Very subtle finding of possible mild acute diverticulitis of the proximal sigmoid colon as discussed. Assessment & Plan Assessment & Plan (1) Renal calculus, bilateral: Code(s): N20.0 - Calculus of kidney Category: Medical (2) Medullary sponge kidney: Code(s): Q61.5 - Medullary cystic kidney Category: Medical (3) Medullary sponge kidney with nephrocalcinosis: Code(s): Q61.5 - Medullary cystic kidney; E83.59 - Other disorders of calcium metabolism; N29 - Other disorders of kidney and ureter in diseases classified elsewhere Category: Medical (4) Hypercalciuria: Code(s): R82.994 - Hypercalciuria Category: Medical Plan Plan 1. Kidney Stones - Monitor stone for potential urinary obstruction. - 24 hr urine collection 2. Hypercalciuria, Medullary Sponge kidney - referral to Nephrology Patient Instructions: The patient had an opportunity to ask questions regarding treatment plan. The patient expressed understanding and agreement with the above treatment plan. The patient is aware they should contact our office by phone for worsening of their current condition or the appearance of new symptoms. Compliance is encouraged with any medications and followup testing that is ordered. It is a privilege to be allowed the opportunity to participate in the urologic care of your patient. If you have any questions or concerns regarding treatment for the above conditions please do not hesitate to contact me. The office telephone contact is [phone]. This note is constructed in part using voice recognition software. While every effort has been made to ensure accuracy utilization manager errors may have been included. Yours sincerely, Trudy Trevino MD Scribe Plan - Not visible on output: Patient was informed and verbally consented to the use of an ambient scribe for clinic note documentation during this visit. Coding Level of Care Code Est Pt Level 3 (20907) Complex EM visit Add On G2211 Diagnoses Renal calculus, bilateral N20.0 Medullary sponge kidney Q61.5 Medullary sponge kidney with nephrocalcinosis Q61.5; E83.59; N29 Hypercalciuria R82.994
== END 2025-04-23 14:47 | disposition home or self-care (01) ==
LOC: HO.HUSH 13:39
PROVIDERS: PCP Internal Medicine; Visit Provider Urology
DX: N20.0 Calculus of kidney (principal); Q61.5 Medullary cystic kidney; E83.59 Other disorders of calcium metabolism; N29 Other disorders of kidney and ureter in diseases classified elsewhere; R82.994 Hypercalciuria
CPT/HCPCS: 99024

== ENCOUNTER → 2025-04-23 13:38 | Outpatient (BNVA) | payer OTHER, SELFPAY | PROVIDERS: PCP Internal Medicine; Visit Provider Urology | DX: N20.0 Calculus of kidney (principal); Q61.5 Medullary cystic kidney; N29 Other disorders of kidney and ureter in diseases classified elsewhere; R82.994 Hypercalciuria | CPT/HCPCS: 99212 ==

== ENCOUNTER 2025-05-14 08:32 | Outpatient (REF) | payer MEDICAID, SELFPAY ==
--- NOTE | ~2025-05-14 | MM_ITS ---
EXAMINATION: DXA BONE DENSITY AXIAL HISTORY: Z78.0 - Asymptomatic menopausal state TECHNIQUE: Goojet Dual energy absorptiometry (DEXA) of the lumbar spine, total left hip, and femoral neck was performed. COMPARISON: Comparison is made with the prior examination dated 08/28/2022. FINDINGS: The bone mineral density of the lumbar spine is 0.984 g/cm2, corresponding to a T-score of -1.6, and a Z-score of -0.8. This is indicative of osteopenia. This represents a BMD change of 1.4% compared to the prior exam. This is not statistically significant. The bone mineral density of the left total hip is 1.083 g/cm2, corresponding to a T-score of 0.6, and a Z-score of 1.3. This is indicative of normal bone mineral density. This represents a BMD change of -6.6% compared to the prior exam. This is statistically significant. The bone mineral density of the left femoral neck is 0.859 g/cm2, corresponding to a T-score of -1.3, and a Z-score of -0.3. This is indicative of osteopenia. This represents a BMD change of -7.2% compared to the prior exam. FRACTURE RISK: The FRAX index suggests a ten year probability of major osteoporotic fracture of 7.2%, and of hip fracture 0.6%. MM/XR DEXA axial skeleton IMPRESSION: Based on bone mineral density, and according to World Health Organization (WHO) criteria, the diagnosis is consistent with osteopenia. Statistically, 68% of repeat scans fall within 1 SD (+/- 0.010 g/cm2 for AP spine L1-L4) and 1 SD (+/- 0.012 g/cm2 for femur total) FRAX is a trademark of the [employer] Metabolic Bone Disease, a World Health Organization (WHO) Collaborating Center. Electronically signed by: Kostas Scott MD 05/14/2025 09:25 AM EDT
--- OUTSIDE RECORDS SUMMARY | 2025-05-14 08:46 | XMS_ITS | Encounter Summary ---
Author Organization [facility] [place], Address [address] [place] [address] Phone Care Team Providers Care Millinery Worker Name Role Phone Yoli Townsend MD Primary Care Provider [phone] Encounter Details Date Type Department Care Team (Late Contact Info) Description 06/12/2023 Documentation Only [facility] Dr [address] [place] [phone] Chester Ventura MD [address] [place] [address] [place] [address] Social History Tobacco Use Types [...] Visit [facility] [address] [place] [address] Chester Ventura MD [address] [place] [address] [place] [address] documented as of this encounter Visit Diagnoses Not on filedocumented in this encounter Care Teams Millinery Worker Relationship Specialty Start Date End Date Yoli Townsend MD [address] [place] PCP - General 06/09/19 documented as of this encounter
--- OUTSIDE RECORDS SUMMARY | 2025-05-14 08:46 | XMS_ITS | Encounter Summary ---
Author Organization [facility] [place], Address [address] [place] [address] Phone Care Team Providers Care Marketing Lead Name Role Phone Yoli Townsend MD Primary Care Provider [phone] Encounter Details Date Type Department Care Team (Late Contact Info) Description 11/30/2022 Documentation Only [facility] Dr [address] [place] [phone] Chester Ventura MD [address] [place] [address] [place] [address] Social History Tobacco Use Types [...] Visit [facility] [address] [place] [address] Chester Ventura MD [address] [place] [address] [place] [address] documented as of this encounter Visit Diagnoses Not on filedocumented in this encounter Care Teams Marketing Lead Relationship Specialty Start Date End Date Yoli Townsend MD [address] [place] PCP - General 06/09/19 documented as of this encounter
--- OUTSIDE RECORDS SUMMARY | 2025-05-14 08:46 | XMS_ITS | Clinical Summary ---
Author Organization [facility] [place], Address [address] [place] [address] [place] [address] Phone Care Team Providers Care Spotter Name Role Phone Yoli Townsend MD Primary Care Provider [phone] Allergies Active Allergy Reactions Criticality Noted Date [...] 0 Active ergocalciferol (VITAMIN D2) 1.25 MG (66008 UT) capsule TOME 1 CAPSULA POR VIA [...] Hypertension Father Diabetes Mother Heart disease Mother [place] Hypertension Mother Cancer Sister Relation Status Comments [...] Visit [facility] [place], [address] [place] [address] Chester Ventura MD [address] [facility] [place] [address] Health Maintenance Due Date Last Done [...] PM EDT) Hemoglobin A1C 8.1(H) (4-6) % [place] [address] Comment: HEMOGLOBIN A1C(%) GLUCOSE CONTROL INDEX <6% EXCELLENT 6-7% VERY GOOD 7-8% GOOD 8-10% FAIR >10% POOR Hemoglobin (Hb) A1c testing is performed by Lary Roselyn-quant immunoassay. Any cause of shortened erythrocyte survival will reduce exposure of erythrocytes to glucose with a consequent decrease in Hb A1c (%). Testing performed or reported by ~[facility], ~a Service of [facility], ~[address] [place] [id number]~ 02/09/2019 3:56 PM EDT us Chester Ventura MD LAB BLOOD ORDERABLES Final Resul t [id number] from Last 3 Months or Most Recently Relevant to Health Maintenance [place] [address] [employer] Care Teams Spotter Relationship Specialty Start Date End Date Yoli Townsend MD [address] [place] [address] PCP - General 06/09/19
--- OUTSIDE RECORDS SUMMARY | 2025-05-14 08:46 | XMS_ITS | Encounter Summary ---
Author Organization [facility] Address [address] [place] [address] Phone Care Team Providers Care Java Sdet Name Role Phone Yoli Townsend MD Primary Care Provider [phone] Encounter Details Date Type Department Care Team (Late Contact Info) Description 12/04/2022 Documentation Only [facility] [address] [place] [address] Chester Ventura MD [address] [place] [address] [place] [address] Social History Tobacco Use Types [...] [facility] [address] [place] [address] Chester Ventura MD [address] [place] [address] [place] [address] documented as of this encounter Visit Diagnoses Not on filedocumented in this encounter Care Teams Java Sdet Relationship Specialty Start Date End Date Yoli Townsend MD [address] [place], [place] PCP - General 06/09/19 documented as of this encounter
--- OUTSIDE RECORDS SUMMARY | 2025-05-14 08:46 | XMS_ITS | Encounter Summary ---
Author Organization [facility] Address [address] [place] [address] Phone Care Team Providers Care Speech Professor Name Role Phone Yoli Townsend MD Primary Care Provider [phone] Encounter Details Date Type Department Care Team (Late Contact Info) Description 06/01/2022 Documentation Only [facility] [address] [place] [address] Chester Ventura MD [address] [place] [address] [place] [address] Social History Tobacco Use Types [...] Visit [facility] [address] [place] [address] Chester Ventura MD [address] [place] [address] [place] [address] documented as of this encounter Visit Diagnoses Not on filedocumented in this encounter Care Teams Speech Professor Relationship Specialty Start Date End Date Yoli Townsend MD [address] [place], [place] PCP - General 06/09/19 documented as of this encounter
--- OUTSIDE RECORDS SUMMARY | 2025-05-14 08:46 | XMS_ITS | Encounter Summary ---
Author Organization [facility] Address [address] [place] [address] Phone Care Team Providers Care Liquid Natural Gas Plant Operator Name Role Phone Yoli Townsend MD Primary Care Provider [phone] Encounter Details Date Type Department Care Team (Late st Contact Info) Description 10/07/2023 Documentation Only [facility] [address] [place] [address] Liliya Pérez [address] [place] [address] Social History Tobacco Use Types [...] [facility] [address] [place] [address] Chester Ventura MD [address] [place] [address] [place] [address] documented as of this encounter Visit Diagnoses Not on filedocumented in this encounter Care Teams Liquid Natural Gas Plant Operator Relationship Specialty Start Date End Date Yoli Townsend MD [address] [place], [place] PCP - General 06/09/19 documented as of this encounter
--- OUTSIDE RECORDS SUMMARY | 2025-05-14 08:46 | XMS_ITS | Encounter Summary ---
Author Organization [facility] [place], Address [address] [place] [address] Phone Care Team Providers Care Radarman Name Role Phone Yoli Townsend MD Primary Care Provider [phone] Encounter Details Date Type Department Care Team (Late Contact Info) Description 06/10/2023 Documentation Only [facility] Dr [address] [place] [address] Chester Ventura MD [address] [place] [address] [place] [address] Social History Tobacco Use Types [...] Visit [facility] [address] [place] [address] Chester Ventura MD [address] [place] [address] [place] [address] documented as of this encounter Visit Diagnoses Not on filedocumented in this encounter Care Teams Radarman Relationship Specialty Start Date End Date Yoli Townsend MD [address] [place] PCP - General 06/09/19 documented as of this encounter
--- OUTSIDE RECORDS SUMMARY | 2025-05-14 08:46 | XMS_ITS | Encounter Summary ---
Author Organization [facility], Address [address] [place] [address] Phone Care Team Providers Care Toggle Press Folder And Feeder Name Role Phone Yoli Townsend MD Primary Care Provider [phone] Reason for Visit * Reason Comments Med Refill Encounter Details Date Type Department Care Team (Late Contact Info) Description 02/18/2020 Refill [facility] [address] [place] [address] Chester Ventura MD [address] [facility] [place] [address] Social History Tobacco Use Types [...] Visit [facility] [place], [address] [facility] [address] Chseter Ventura MD [address] [facility] [place] [address] documented as of this encounter Visit Diagnoses Not on filedocumented in this encounter Care Teams Toggle Press Folder And Feeder Relationship Specialty Start Date End Date Yoli Townsend MD [address] [place], [place] PCP - General 06/09/19 documented as of this encounter
--- OUTSIDE RECORDS SUMMARY | 2025-05-14 08:46 | XMS_ITS | Encounter Summary ---
Author Organization [facility] Address [address] [place] [address] Phone Care Team Providers Care Calendering Supervisor Name Role Phone Yoli Townsend MD Primary Care Provider [phone] Encounter Details Date Type Department Care Team (Late st Contact Info) Description 09/27/2023 Documentation Only [facility] [address] [place] [address] Liliya Pérez [address] [place] [address] Social History Tobacco Use Types [...] [facility] [address] [place] [address] Chester Ventura MD [address] [place] [address] [place] [address] documented as of this encounter Visit Diagnoses Not on filedocumented in this encounter Care Teams Calendering Supervisor Relationship Specialty Start Date End Date Yoli Townsend MD [address] [place], [place] PCP - General 06/09/19 documented as of this encounter
--- OUTSIDE RECORDS SUMMARY | 2025-05-14 08:46 | XMS_ITS | Encounter Summary ---
Author Organization [facility] Address [address] [place] [address] Phone Care Team Providers Care Maintenance Worker Name Role Phone Yoli Townsend MD Primary Care Provider [phone] Encounter Details Date Type Department Care Team (Late Contact Info) Description 06/06/2022 Documentation Only [facility] [address] [place] [address] Chester Ventura MD [address] [place] [address] [place] [address] Social History Tobacco Use Types [...] [facility] [address] [place] [address] Chester Ventura MD [address] [place] [address] [place] [address] documented as of this encounter Visit Diagnoses Not on filedocumented in this encounter Care Teams Maintenance Worker Relationship Specialty Start Date End Date Yoli Townsend MD [address] [place], [place] PCP - General 06/09/19 documented as of this encounter
--- OUTSIDE RECORDS SUMMARY | 2025-05-14 08:46 | XMS_ITS | Encounter Summary ---
Author Organization [facility] Address [address] [place] [address] Phone Care Team Providers Care Parts Designer Name Role Phone Yoli Townsend MD Primary Care Provider [phone] Encounter Details Date Type Department Care Team (Late Contact Info) Description 12/04/2022 Documentation Only [facility] [address] [place] [address] Chester Ventura MD [address] [place] [address] [place] [address] Social History Tobacco Use Types [...] [facility] [address] [place] [address] Chester Ventura MD [address] [place] [address] [place] [address] documented as of this encounter Visit Diagnoses Not on filedocumented in this encounter Care Teams Parts Designer Relationship Specialty Start Date End Date Yoli Townsend MD [address] [place], [place] PCP - General 06/09/19 documented as of this encounter
--- OUTSIDE RECORDS SUMMARY | 2025-05-14 08:46 | XMS_ITS | Encounter Summary ---
Author Organization [facility] Address [address] [place] [address] Phone Care Team Providers Care Obiee Consultant Name Role Phone Yoli Townsend MD Primary Care Provider [phone] Encounter Details Date Type Department Care Team (Late Contact Info) Description 06/12/2023 Documentation Only [facility] [address] [place] [address] Chester Ventura MD [address] [place] [address] [place] [address] Social History Tobacco Use Types [...] [facility] [address] [place] [address] Chester Ventura MD [address] [place] [address] [place] [address] documented as of this encounter Visit Diagnoses Not on filedocumented in this encounter Care Teams Obiee Consultant Relationship Specialty Start Date End Date Yoli Townsend MD [address] [place], [place] PCP - General 06/09/19 documented as of this encounter
--- OUTSIDE RECORDS SUMMARY | 2025-05-14 08:46 | XMS_ITS | Encounter Summary ---
Author Organization [facility] Address [address] [place] [address] Phone Care Team Providers Care Product Safety And Standards Engineer Name Role Phone Yoli Townsend MD Primary Care Provider [phone] Encounter Details Date Type Department Care Team (Late Contact Info) Description 06/18/2022 Documentation Only [facility] [address] [place] [address] Chester Ventura MD [address] [place] [address] [place] [address] Social History Tobacco Use Types [...] Visit [facility] [address] [place] [address] Chester Ventura MD [address] [place] [address] [place] [address] documented as of this encounter Visit Diagnoses Not on filedocumented in this encounter Care Teams Product Safety And Standards Engineer Relationship Specialty Start Date End Date Yoli Townsend MD [address] [place], [place] PCP - General 06/09/19 documented as of this encounter
--- OUTSIDE RECORDS SUMMARY | 2025-05-14 08:46 | XMS_ITS | Encounter Summary ---
Author Organization [facility], Address [address] [place] [address] Phone Care Team Providers Care Assembler Mechanical Ordnance Name Role Phone Yoli Townsend MD Primary Care Provider [phone] Reason for Visit * Reason Comments Med Refill Encounter Details Date Type Department Care Team (Late Contact Info) Description 02/17/2020 Refill [facility] [address] [place] [address] Chester Ventura MD [address] [facility] [place] [address] Social History Tobacco Use Types [...] Visit [facility] [place], [address] [facility] [place] [address] Chester Ventura MD [address] [facility] [place] [address] documented as of this encounter Visit Diagnoses Not on filedocumented in this encounter Care Teams Assembler Mechanical Ordnance Relationship Specialty Start Date End Date Yoli Townsend MD [address] [place], [place] PCP - General 06/09/19 documented as of this encounter
--- OUTSIDE RECORDS SUMMARY | 2025-05-14 08:47 | XMS_ITS | Encounter Summary ---
Author Organization [employer] [facility] Address [address] [facility] 7t [place] [address] Care Team Providers Care Chainstitch Elastic Attacher Name Role Phone Unavailable Primary Care Provider [...]
--- OUTSIDE RECORDS SUMMARY | 2025-05-14 08:47 | XMS_ITS | Clinical Summary ---
Author Organization [employer] Address [address] [place] [address] 7t [place] [address] Care Team Providers Care Laundry Operator Wash Room Name Role Phone Unavailable Primary Care Provider [...] FIT DNA/Cologuard 1960 FIT 1960 FOBT 1960 Lipid Panel 1960 SDOH Screening 1960 Sigmoidoscopy 1960 Alcohol/Substance Use Screening 1972 Tobacco Screening 1972 Hepatitis C Screening 1978 Hepatitis A Vaccines (1 of 2 - Risk 2-dose series) 1979 Pap Smear 1981 Cervical Cancer Screening 1990 HPV/Cotest 1990 Mammogram 2000 Zoster Vaccines (1 of 2) 2010 Pneumococcal Vaccine: 50+ Years (2 of 2 - PCV) 08/13/2012 08/13/2011 RSV Patients and Patients Aged 60 years or older (1 - Risk 60-74 years 1-dose series) 2020 DTaP/Tdap/Td Vaccines (2 - T d or Tdap) 02/12/2022 02/13/2012 COVID-19 Vaccine ( - 2023-2 5 season) 2025 Influenza Vaccine (#1) 2025 9, 07/15/2003 Hepatitis B Vaccines Completed 12/30/2014, 09/28/2014, 08/16/2014 [...] on patient's age to complete this topic Insurance [facility]
--- OUTSIDE RECORDS SUMMARY | 2025-05-14 08:47 | XMS_ITS | Encounter Summary ---
Author Organization [facility] Address [address] [place] [address] Phone Care Team Providers Care Field Geologist Name Role Phone Yoli Townsend MD Primary Care Provider [phone] Encounter Details Date Type Department Care Team (Late st Contact Info) Description 06/23/2024 Office Communication [facility] Dr [address] [place] [address] Chester Ventura MD [address] [place] [address] [place] [address] Social History Tobacco Use Types [...] Visit [facility] [address] [facility] [place] [address] Chester Ventura MD [address] [place] [address] [place] [address] documented as of this encounter Visit Diagnoses Not on filedocumented in this encounter Care Teams Field Geologist Relationship Specialty Start Date End Date Yoli Townsend MD [address] [place] PCP - General 06/09/19 documented as of this encounter
--- OUTSIDE RECORDS SUMMARY | 2025-05-14 08:47 | XMS_ITS | Encounter Summary ---
Author Organization [facility] Address [address] [place] [address] Phone Care Team Providers Care Hogshead Cooper Name Role Phone Yoli Townsend MD Primary Care Provider [phone] Encounter Details Date Type Department Care Team (Late st Contact Info) Description 12/30/2024 Documentation Only [facility] [address] [place] [address] Liliya Pérez [address] [place] [address] Social History Tobacco Use Types [...] [facility] [address] [place] [address] Chester Ventura MD [address] [place] [address] [place] [address] documented as of this encounter Visit Diagnoses Not on filedocumented in this encounter Care Teams Hogshead Cooper Relationship Specialty Start Date End Date Yoli Townsend MD [address] [place], [place] PCP - General 06/09/19 documented as of this encounter
--- OUTSIDE RECORDS SUMMARY | 2025-05-14 08:47 | XMS_ITS | Encounter Summary ---
Author Organization [facility] Address [address] [place] [address] Phone Care Team Providers Care Gold Nib Grinder Name Role Phone Yoli Townsend MD Primary Care Provider [phone] Encounter Details Date Type Department Care Team (Late st Contact Info) Description 09/27/2023 Documentation Only [facility] [address] [place] [address] Liliya Pérez [address] [place] [address] Social History Tobacco Use Types [...] [facility] [address] [place] [address] Chester Ventura MD [address] [place] [address] [place] [address] documented as of this encounter Visit Diagnoses Not on filedocumented in this encounter Care Teams Gold Nib Grinder Relationship Specialty Start Date End Date Yoli Townsend MD [address] [address] [place], [place] PCP - General 06/09/19 documented as of this encounter
--- OUTSIDE RECORDS SUMMARY | 2025-05-14 08:47 | XMS_ITS | Encounter Summary ---
Author Organization [facility] Address [address] [place] [address] Phone Care Team Providers Care Distillery Manager Name Role Phone Yoli Townsend MD Primary Care Provider [phone] Encounter Details Date Type Department Care Team (Late Contact Info) Description 02/21/2022 Documentation Only [facility] [address] [place] [address] Chester Ventura MD [address] [place] [address] [place] [address] Social History Tobacco Use Types [...] [facility] [address] [place] [address] Chester Ventura MD [address] [place] [address] [place] [address] documented as of this encounter Visit Diagnoses Not on filedocumented in this encounter Care Teams Distillery Manager Relationship Specialty Start Date End Date Yoli Townsend MD [address] [place], [place] PCP - General 06/09/19 documented as of this encounter
--- OUTSIDE RECORDS SUMMARY | 2025-05-14 08:47 | XMS_ITS | Encounter Summary ---
Author Organization [facility] Address [address] [place] [address] Phone Care Team Providers Care Industrial Psychology Teacher Name Role Phone Yoli Townsend MD Primary Care Provider [phone] Encounter Details Date Type Department Care Team (Late st Contact Info) Description 10/08/2023 Documentation Only [facility] [address] [place] [address] Liliya Pérez [address] [place] [address] Social History Tobacco Use Types [...] [facility] [address] [place] [address] Chester Ventura MD [address] [place] [address] [place] [address] documented as of this encounter Visit Diagnoses Not on filedocumented in this encounter Care Teams Industrial Psychology Teacher Relationship Specialty Start Date End Date Yoli Townsend MD [address] [place], [place] PCP - General 06/09/19 documented as of this encounter
--- OUTSIDE RECORDS SUMMARY | 2025-05-14 08:47 | XMS_ITS | Encounter Summary ---
Author Organization [employer] [facility] Address [address] [facility] 7t [place] [address] Care Team Providers Care Junior Network Administrator Name Role Phone Unavailable Primary Care Provider [...]
== END 2025-05-14 08:33 | disposition home or self-care (01) ==
LOC: HO.MAMMO 08:32
PROVIDERS: PCP Internal Medicine; Visit Provider Internal Medicine
DX: Z13.820 Encounter for screening for osteoporosis (principal); Z78.0 Asymptomatic menopausal state
CPT/HCPCS: 77080

== ENCOUNTER → 2025-05-14 09:15 | Outpatient (BNV) | payer MEDICAID, SELFPAY | PROVIDERS: PCP Internal Medicine; Visit Provider Radiology Diagnostic Radiology | DX: E28.39 Other primary ovarian failure (principal) | CPT/HCPCS: 77080 ==

== ENCOUNTER 2025-05-17 08:05 | Outpatient (REF) | payer MEDICAID, SELFPAY ==
[2025-05-17 09:18] LABS: Microalbum/Creatinine Ratio Ur 90.2 ug/mg cr (<30)
[2025-05-17 09:22] LABS: Alanine Aminotransferase 26 U/L (0-31); Albumin Level 4.5 g/dL (3.5-5.0); Alkaline Phosphatase 104 U/L (39-117); Anion Gap 12 (12-20); Aspartate Amino Transferase 27 U/L (5-31); Blood Urea Nitrogen 12 mg/dL (9-16); Calcium 9.4 mg/dL (8.4-10.2); Carbon Dioxide 28 mmol/L (22-29); Chloride 107 mmol/L (96-108); Cholesterol 132 mg/dL (<200); Estimated Glomerular Filt Rate > 60; HDL Cholesterol 57 mg/dL (>40); Potassium 3.8 mmol/L (3.3-5.1); Sodium 143 mmol/L (135-145); Total Protein 7.6 g/dL (6.5-8.0); Triglycerides 68 mg/dL (<150)
[2025-05-17 09:46] LABS: Folate 12.9 ng/mL (> or = 4.0); Vitamin B12 1057 pg/mL (200-900)
== END 2025-05-17 08:06 | disposition home or self-care (01) ==
LOC: HO.LAB 08:05
PROVIDERS: PCP Internal Medicine; Visit Provider Internal Medicine
DX: E55.9 Vitamin D deficiency, unspecified (principal); R80.9 Proteinuria, unspecified; E78.5 Hyperlipidemia, unspecified; E53.8 Deficiency of other specified B group vitamins; E78.49 Other hyperlipidemia
CPT/HCPCS: 36415; 80053; 80061; 82043; 82306; 82570; 82607; 82746

== ENCOUNTER 2025-05-18 10:24 | Outpatient (AMB) | payer MEDICAID, SELFPAY ==
--- NOTE | 2025-05-18 10:30 | A.OFFPC_ITS ---
Vital Signs 05/18/25 10:31 Height 5 ft 1 in Weight 189 lb 4 oz BMI 35.8 BP 128/80 Blood Pressure Location Lt brachial Position Sitting Respiration 18 Pulse 88 Pulse Source Pulse Oximeter Temp 97.1 F Temp Source Temporal Artery Scan Pulse Oximetry (%) 99 Oxygen Delivery Method Room Air Intake Visit Reasons: follow up Respiratory Therapist Required: No Accompanied by: Self / Same As Patient Allergies atorvastatin Allergy (Intermediate, Verified 05/18/25 10:45) elevated liver enzymes, elevated enzymes duloxetine (Cymbalta) Allergy (Intermediate, Verified 05/18/25 10:45) headache dapagliflozin (From [facility]) Adverse Reaction (Intermediate, Verified 05/18/25 10:45) Dizziness Medication List - Last Reconciled 05/18/25 by Yoli Padilla MD alclometasone 0.05% appl topical BID PRN azelastine-fluticasone 137-50 mcg/spray 1 spray intranasal BID blood sugar diagnostic (FreeStyle Lite Strips) 3 times a day blood-glucose meter (FreeStyle Lite Meter kit) As directed 3x/day calcium carbonate 500 mg PO BID 30 days cholecalciferol (vitamin D3) 25 mcg PO DAILY ciprofloxacin HCl 250 mg PO BID 10 days diclofenac sodium 1% 2 grams topical BID PRN empagliflozin (Jardiance) 25 mg PO DAILY 90 days evolocumab (Repatha Pushtronex) 420 mg (3.5 mL) subcut Q4W 90 days evolocumab (Repatha SureClick) 140 mg subcut Q2W 90 days ezetimibe 10 mg PO DAILY 90 days gabapentin 100 mg PO BEDTIME 30 days hydroxyzine HCl 25 mg PO BID PRN 7 days ketoconazole 2% Apply 10 mL to wet scalp, lather, leave on 5 minutes, and rinse. Apply once a day for 8 weeks. losartan 25 mg PO DAILY 90 days mecobalamin (vitamin B12) 1,000 mcg PO DAILY 90 days metformin 1,000 mg (2 x 500 mg) PO BID 90 days omeprazole 20 mg PO QAM PRN 90 days oxycodone-acetaminophen 5-325 mg (Percocet) 1 tab PO Q6-8H PRN pyridoxine (vitamin B6) 100 mg PO DAILY 90 days repaglinide 1- 2 tabs prior to dinner PO daily; administer within 15 minutes of a meal or snack 30 days rosuvastatin 40 mg PO DAILY semaglutide (Ozempic) 2 mg (0.75 mL) subcut QWEEK 4 weeks tamsulosin (Flomax) 0.4 mg PO DAILY tizanidine 2 mg PO Q8H PRN 30 days tramadol 50 mg PO BID PRN tramadol 50 mg PO BID PRN 30 days Tobacco use date assessed: 05/18/25 Fall risk assessment: No Falls in past year Last assessed Fall Risk: 05/18/25 Dental Screening Dental Screen Date: 05/18/25 Did you have a dental visit in the last 12 months?: Yes Did you have a dental problem in the last 6 months where you did not have access to dental care?: No Was dental information given to patient?: Patient has dentist HPI HPI Comments History of Present Illness Details The patient is a 65-year-old female presenting with the management of chronic conditions including osteopenia, hypertension, hypercholesterolemia, and diabetes mellitus. Osteopenia was identified following a bone density test conducted on May 14, which revealed decreased bone density. The recommended treatment includes calcium and vitamin D supplementation. Hypertension is well-controlled with a recent blood pressure reading of 128/80 mmHg. The patient's cholesterol levels are reportedly good, with no recent concerns noted. Vitamin B12 levels are elevated, although no specific intervention was discuss ed. Diabetes mellitus management is ongoing, with a recent hemoglobin A1c level of 7.5%. [facility] Medical History (Updated 05/18/25 @ 11:00 by Yoli Padilla MD) Seborrheic dermatitis Diverticulitis History of kidney stones Abdominal pain Tachycardia Renal cyst Chronic GERD Polyarthralgia Left shoulder pain Right foot pain Renal calculus, bilateral Mild major depression, single episode Morbid obesity with BMI of 40.0-44.9, adult Diabetes type 2, uncontrolled Iron deficiency anemia Osteopenia Left foot pain Postmenopausal Vitamin D deficiency Elevated LFTs Thyroid nodule Type 2 diabetes mellitus with other diabetic kidney complication Proteinuria Hyperlipidemia LDL goal <100 Obesity due to excess calories Essential hypertension Pure hypercholesterolemia Venous thrombosis of upper extremity Diabetes mellitus, type II Spondylosis, cervical Fatty liver Metatarsalgia Arthropathy of knee Surgical History H/O colonoscopy History of extraction of renal calculus History of removal of cyst History of shoulder surgery History of cholecystectomy History of total abdominal hysterectomy and bilateral salpingo-oophorectomy Status post rotator cuff repair Family History Father Stomach cancer Liver cancer Mother Myocardial infarct Diabetes CVD (cardiovascular disease) Sister Cervical cancer Brother Murder Social History Household Members: Children Housing: House Alcohol intake: never Patient Tobacco Use Status: Never used Tobacco e-Cigarette/Vaping Use: Never Used Second Hand Smoke Exposure: No service: No Current occupational status: disabled Current occupation: right handed Cognitive needs: Yes (Pt use a cane) Hearing needs: No Vision needs: No Questionnaire Thrive Questionnaire Date Thrive assessed: 11/06/24 HENRIETTA-7 AMB Questionnaire HENRIETTA-7 Date HENRIETTA - 7 assessed: 11/13/24 Source: Developed by Drs. Kostas Simeon, Mary Smith, Lb Barrett and colleagues, with an educational rachael from [employer]. Review of Systems Const All systems reviewed & are unremarkable except as noted in HPI and below Card Denies chest pain at rest, Denies chest pain with activity, Denies edema, Denies irregular heart rhythm, Denies claudication, Denies dyspnea, Denies dyspnea on exertion, Denies orthopnea, Denies paroxysmal nocturnal dyspnea and Denies slow heart rate Resp Denies cough, Denies dyspnea and Denies dyspnea on exertion GI Denies abdominal pain, Denies change in bowel habits, Denies excessive flatus, Denies nausea and Denies vomiting Physical exam (Primary Care) Vital Signs: Last Vital Signs Temp 97.1 F 05/18/25 10:31 Pulse 88 05/18/25 10:31 Resp 18 05/18/25 10:31 BP 128/80 05/18/25 10:31 Pulse Ox 99 05/18/25 10:31 Oxygen Delivery Method Room Air 05/18/25 10:31 BMI result Body Mass Index 35.8 BMI Assessment/Plan discussion: High BMI High, discussed plan: lifestyle, weight reduction, dietary and physical activity Tobacco/Smoking Status: Tobacco use Status Tobacco use date assessed 05/18/25 05/18/25 10:36 Patient Tobacco Use Status Never used Tobacco 05/18/25 10:36 e-Cigarette/Vaping Use Never Used 05/18/25 10:36 Thrive Assessment: Date of Thrive Assessment Date Thrive assessed 11/06/24 05/18/25 10:36 Resp Effort & Inspection: normal respiratory effort Auscultation: clear to auscultation bilaterally Cardio Jugular venous distension: no JVD Rate: regular rate Rhythm: regular rhythm Heart sounds: S1 normal heart sound present and S2 normal heart sound present Extrem General: Yes full ROM Results AMB Hemoglobin A1c AMB Hemoglobin A1c 7.5 % Last Edit by ALFONSO Garland on 05/18/25 10 :59 Coding Level of Care Code Est Pt Level 4 (46990) Complex EM visit Add On G2211 Diagnoses Essential hypertension I10 Hyperlipidemia LDL goal <70 E78.5 Type 2 diabetes mellitus with hyperglycemia, without long-term current use of insulin E11.65 Diabetes mellitus long term care social worker insulin use: without custodial use Diabetes mellitus complication status: with hyperglycemia Osteopenia, unspecified location M85.80 Osteopenia location: unspecified Time Spent (min) 22 Assessment & Plan Assessment & Plan (1) Essential hypertension: Code(s): I10 - Essential (primary) hypertension Category: Medical (2) Hyperlipidemia LDL goal <70: Code(s): E78.5 - Hyperlipidemia, unspecified Category: Medical (3) Diabetes mellitus, type II: Code(s): E11.9 - Type 2 diabetes mellitus without complications Category: Medical Qualifiers: Diabetes mellitus custodial insulin use: without custodial use Diabetes mellitus complication status: with hyperglycemia Qualified Code(s): E11.65 - Type 2 diabetes mellitus with hyperglycemia (4) Osteopenia: Comment: Next bone densitometry will be August 2022 Code(s): M85.80 - Other specified disorders of bone density and structure, unspecified site Category: Medical Qualifiers: Osteopenia location: unspecified Qualified Code(s): M85.80 - Other specified disorders of bone density and structure, unspecified site Plan Plan Patient was informed and verbally consented to the use of an ambient scribe for clinic note documentation during this visit. 1. Osteopenia The patient has been diagnosed with osteopenia following a bone density test. The recommended management includes calcium and vitamin D supplementation to improve bone density. 2. Hypertension The patient's hypertension is well-controlled with a blood pressure reading of 128/80 mmHg. 3. Hypercholesterolemia The patient's cholesterol levels are reportedly good, with no recent concerns noted. 4. Diabetes Mellitus The patient's diabetes mellitus management is ongoing, with a recent hemoglobin A1c level of 7.5%. Orders: Orders AMB Hemoglobin A1c Today Z13.9 - Encounter for screening, unspecified Referrals General Surgery Referral L98.9 - Disorder of the skin and subcutaneous tissue, unspecified Medications: New liraglutide (Victoza 3-Demond) 0.6 mg (0.1 mL) subcut DAILY 2.8 mL 0RF 4 weeks E11.65 - Type 2 diabetes mellitus with hyperglycemia Refilled evolocumab (Repatha Pushtronex) 420 mg (3.5 mL) subcut Q4W 14 mL 3RF 90 days E78.49 - Other hyperlipidemia Discontinued tizanidine Discontinued Reason: Patient Completed Course 2 mg PO Q8H 30 days PRN 90 tabs 4RF muscle spasticity
[2025-05-18 10:31] VITALS: BP 128/80; PULSE 88; RESP 18; TEMP 36.2; O2SAT 99; BMI 35.8
--- OUTSIDE RECORDS SUMMARY | 2025-05-18 12:16 | XMS_ITS | Encounter Summary ---
Author Organization [facility] Address [address] [place] [address] Phone Care Team Providers Care Employee Placement Specialist Name Role Phone Yoli Townsend MD Primary Care Provider Encounter Details Date Type Department Care Team (Late Contact Info) Description 06/06/2022 Documentation Only [facility] [address] [place] [address] Chester Ventura MD [address] [place] [address] [place] [address] Social History Tobacco Use Types [...] [facility] [address] [place] [address] Chester Ventura MD [address] [place] [address] [place] [address] documented as of this encounter Visit Diagnoses Not on filedocumented in this encounter Care Teams Employee Placement Specialist Relationship Specialty Start Date End Date Yoli Townsend MD [address] [place], [place] PCP - General 06/09/19 documented as of this encounter
--- OUTSIDE RECORDS SUMMARY | 2025-05-18 12:16 | XMS_ITS | Encounter Summary ---
Author Organization [facility] [place], Address [address] [place] [address] Phone Care Team Providers Care Manufacturing Engineer Automotive Name Role Phone Yoli Townsend MD Primary Care Provider [phone] Encounter Details Date Type Department Care Team (Late Contact Info) Description 06/10/2023 Documentation Only [facility] Dr [address] [place] [id number] Chester Ventura MD [address] [place] [address] [place] [address] Social History Tobacco Use Types [...] Visit [facility] [address] [place] [address] Chester Ventura MD [address] [place] [address] [place] [address] documented as of this encounter Visit Diagnoses Not on filedocumented in this encounter Care Teams Manufacturing Engineer Automotive Relationship Specialty Start Date End Date Yoli Townsend MD [address] [place] PCP - General 06/09/19 documented as of this encounter
--- OUTSIDE RECORDS SUMMARY | 2025-05-18 12:16 | XMS_ITS | Encounter Summary ---
Author Organization [facility] Address [address] [place] [address] Phone Care Team Providers Care Karate Instructor Name Role Phone Yoli Townsend MD Primary Care Provider [phone] Encounter Details Date Type Department Care Team (Late Contact Info) Description 06/12/2023 Documentation Only [facility] [address] [place] [place] [address] Chester Ventura MD [address] [place] [address] [place] [address] Social History Tobacco Use Types [...] [facility] [address] [place] [address] Chester Ventura MD [address] [place] [address] [place] [address] documented as of this encounter Visit Diagnoses Not on filedocumented in this encounter Care Teams Karate Instructor Relationship Specialty Start Date End Date Yoli Townsend MD [address] [place], [place] PCP - General 06/09/19 documented as of this encounter
--- OUTSIDE RECORDS SUMMARY | 2025-05-18 12:16 | XMS_ITS | Encounter Summary ---
Author Organization [facility] Address [address] [place] [address] Phone Care Team Providers Care Major Assembly Inspector Name Role Phone Yoli Townsend MD Primary Care Provider [phone] Encounter Details Date Type Department Care Team (Late Contact Info) Description 12/04/2022 Documentation Only [facility] [address] [place] [address] Chester Ventura MD [address] [place] [address] [place] [address] Social History Tobacco Use Types [...] [facility] [address] [place] [address] Chester Ventura MD [address] [place] [address] [place] [address] documented as of this encounter Visit Diagnoses Not on filedocumented in this encounter Care Teams Major Assembly Inspector Relationship Specialty Start Date End Date Yoli Townsend MD [address] [place], [place] PCP - General 06/09/19 documented as of this encounter
--- OUTSIDE RECORDS SUMMARY | 2025-05-18 12:16 | XMS_ITS | Clinical Summary ---
Author Organization [facility] [place], Address [address] [place] [address] [place] [address] Phone Care Team Providers Care Brick Unloader Tender Name Role Phone Yoli Townsend MD Primary Care Provider [phone] Allergies Active Allergy Reactions Criticality Noted Date [...] 0 Active ergocalciferol (VITAMIN D2) 1.25 MG (40191 UT) capsule TOME 1 CAPSULA POR VIA [...] Hypertension Father Diabetes Mother Heart disease Mother [place] Hypertension Mother Cancer Sister Relation Status Comments [...] Visit [facility] [place], [address] [place] [address] Chester Ventura MD [address] [facility] [place] [address] Health Maintenance [...] PM EDT) Hemoglobin A1C 8.1(H) (4-6) % [place] [id number] Comment: HEMOGLOBIN A1C(%) GLUCOSE CONTROL INDEX <6% EXCELLENT 6-7% VERY GOOD 7-8% GOOD 8-10% FAIR >10% POOR Hemoglobin (Hb) A1c testing is performed by Lary Roselyn-quant immunoassay. Any cause of shortened erythrocyte survival will reduce exposure of erythrocytes to glucose with a consequent decrease in Hb A1c (%). Testing performed or reported by ~[facility], ~a Service of [facility], ~[address] [place] [address]~ 02/09/2019 3:56 PM EDT us Chester Ventura MD LAB BLOOD ORDERABLES Final Resul t [id number] from Last 3 Months or Most Recently Relevant to Health Maintenance [place] [address] [place] [address] Care Teams Brick Unloader Tender Relationship Specialty Start Date End Date Yoli Townsend MD [address] [place] [address] PCP - General 06/09/19
--- OUTSIDE RECORDS SUMMARY | 2025-05-18 12:16 | XMS_ITS | Encounter Summary ---
Author Organization [facility] Address [address] [place] [address] Phone Care Team Providers Care Electron Beam Photo Mask Technician Name Role Phone Yoli Townsend MD Primary Care Provider [phone] Encounter Details Date Type Department Care Team (Late Contact Info) Description 12/04/2022 Documentation Only [facility] [address] [place] [address] Chester Ventura MD [address] [place] [address] [place] [address] Social History Tobacco Use Types [...] [facility] [address] [place] [address] Chester Ventura MD [address] [place] [address] [place] [address] documented as of this encounter Visit Diagnoses Not on filedocumented in this encounter Care Teams Electron Beam Photo Mask Technician Relationship Specialty Start Date End Date Yoli Townsend MD [address] [place], [place] PCP - General 06/09/19 documented as of this encounter
--- OUTSIDE RECORDS SUMMARY | 2025-05-18 12:16 | XMS_ITS | Encounter Summary ---
Author Organization [facility] Address [address] [place] [address] Phone Care Team Providers Care Double Bass Player Name Role Phone Yoli Townsend MD Primary Care Provider [phone] Encounter Details Date Type Department Care Team (Late Contact Info) Description 06/01/2022 Documentation Only [facility] [address] [place] [address] Chester Ventura MD [address] [place] [address] [place] [address] Social History Tobacco Use [...] Visit [facility] [address] [place] [address] Chester Ventura MD [address] [place] [address] [place] [address] documented as of this encounter Visit Diagnoses Not on filedocumented in this encounter Care Teams Double Bass Player Relationship Specialty Start Date End Date Yoli Townsend MD [address] [place], [place] PCP - General 06/09/19 documented as of this encounter
--- OUTSIDE RECORDS SUMMARY | 2025-05-18 12:16 | XMS_ITS | Patient Health Record ---
Author Organization [facility] Address [address] [place] [address] Care Team Providers Care Access Rep Name Role Phone Yoli Townsend Primary Care Provider UnavailKostas Love Unavailable [phone] Allergies No Known Allergies Results Component Value Reference Range Notes Complete Blood Count Auto Di ff Reviewed date:06/11/2024 01:39:17 PM Interpretation: Performing Lab:[facility], [address] [place] [phone] Notes/Report: White Blood Count 6.8 4.8-10.8 X10*3/uL [...] INR Reviewed date:06/11/2024 01:39:24 PM Interpretation: Performing Lab:[facility], [address] [place] [phone] Notes/Report: Prothrombin Time 11.5 10.9-12.4 SEC INTERNATIONAL [...] A2 Reviewed date:06/17/2024 05:10:57 PM Interpretation: Performing Lab:[facility], [address] [place] [phone] Notes/Report: Lipoprotein Asso Phospholip A2 106 <124 Result Units: nmol/min/mL This test was developed and its analytical performance characteristics have been determined by [facility]. It has not been cleared or approved by the U.S. Food and Drug Administration. This assay has been validated pursuant to the CLIA regulations and is used for clinical purposes. Relative Risk: Optimal <=123 nmol/min/mL; High >123 nmol/min/mL. See Note 1 Note 1 This test was developed and its analytical performance characteristics have been determined by [facility]. It has not been cleared or approved by the FDA. This assay has been validated pursuant to the CLIA regulations and is used for clinical purposes. THIS TEST WAS PERFORMED AT: [facility] [address] [place] [address] ERIN TURNER,PHD,[facility] Apolipoprotein B Reviewed date:06/17/2024 05:10:38 PM Interpretation: Performing Lab:[facility], [address] [place] [phone] Notes/Report: Apolipoprotein B 121 <90 mg/dL Reference Range: <90 Risk Category: Optimal < 90 Moderate 90 - 119 High > or = 120 Cardiovascular event risk category cut points (optimal, moderate, high) are based on National Lipid Association recommendations-Joya TA et al. J Clin Lipid. 2015;9:129-169 and Etelvina PS et al. Endocr Pract. 2017;23(Suppl 2):1-87. THIS TEST WAS PERFORMED AT: [facility]/[address] [address] GONZALO ALVARADO MD,PHD Vitamin B12 and Folate Reviewed date:06/11/2024 01:40:13 PM Interpretation: Performing Lab:[facility], [address] [place] [phone] Notes/Report: Vitamin B12 804 200-900 pg/mL NORMAL 200-900 PG/ML INDETERMINATE 160-199 PG/ML DEFICIENT < 160 PG/ML Folate 14.7 > or = 4.0 ng/mL Reference Values: > or = 4.0 ng/mL < 4.0 ng/mL suggests folate deficiency Methotrexate, aminopterin and folinic acid (leucovorin) are chemotherapeutic agents whose molecular structures are similar to folate; therefore, the Truck Trailer Mechanic folate assay cannot be used for patients using these drugs. Vitamin D 25-OH Total Reviewed date:06/11/2024 01:39:39 PM Interpretation: Performing Lab:[facility], [address] [place] [phone] Notes/Report: Vitamin D 25-OH Total 27.9 >30 [...] Random Reviewed date:06/11/2024 01:38:36 PM Interpretation: Performing Lab:[facility], [address] [place] [phone] Notes/Report: Creatinine Urine 88.40 Microalbumin Urine 152.0 Microalbum/Creatinine Ratio Ur 171.9 <30 ug/mg cr Albumin/Creatinine Ratio Reference Ranges: Normal: < 30 ug/mg creatinine Microalbuminuria: 30 - 300 ug/mg creatinine Clinical Albuminuria: > 300 ug/mg creatinine US abdomen comp w elastograp hy (Not yet reviewed by provider) Interpretation: Performing Lab: Notes/Report: [address] [address] Ultrasound Report Signed Patient: Heather Combs MR#: [id number] : 1960 Acct:[id number] Age/Sex: 64 / F ADM Date: 06/11/24 Loc: HO.US Attending Dr: Kostas Erazo MD Ordering Physician: Kostas Erazo MD Date of Service: 06/11/24 Procedure(s): US abdomen comp w elastography Accession Number(s): [id number] cc: Yoli Townsend MD; Kostas Erazo MD [...] 08/13/24 2352 DD/ 0807 TD/TT: 06/11/24 0830 Eligibility Worker: Reason For Referral No Information Medications Medication SIG (Take, Route, Frequency, Duration) Notes Start Date End Date Status metFORMIN HCl 500mg Orally Twice a day Active Baclofen 10 MG Oral; Duration: 30 Active Fish Oil 1000 MG 1 capsule Orally Onc e a day Active Rosuvastatin Calcium 40 MG TOME MARK ANTHONY TABL ETA POR V A ORAL A DIARIO Oral; Duration: 90 Active Ozempic (1 MG/DOSE) 4 MG/3ML Subcutaneous; Duration: 28 Active Vitamin C 500 MG as directed Orally Active traMADol HCl 50 MG TAKE 1 TABLET BY BELINDA TH 2 TIMES A DAY NEEDED FOR PAIN FOR 30 DAYS Oral; Duration: 30 Active Omeprazole 20 MG 1 Orally QAM; Durati on: 30 day(s) 01/23/2022 Active Ursodiol 300 MG TOME 2 CAPSULAS POR VIA ORAL DOS VECES AL IVELISSE Active Repatha Pushtronex System 420 MG/3.5ML INJECT 420MG POR V A SUBCUT MATT ONE A MONTH Subcutaneous; Duration: 30 Active Ursodiol 300 MG tome 2 capsulas por via oral dos veces al ivelisse Orally Twice a day; Duration: 30 days Active PriLOSEC 20 MG 1 capsule Orally Onc e a day; Duration: 30 days Active Allopurinol 100 MG 1 tablet Orally Once a day Active Jardiance 10 MG Oral; Duration: 90 Active Vitamin D2 10 MCG (400 UNIT) 2 tablets Orally Once a day; Duration: 30 day(s) Active Vitamin D-[address] 25 MCG (1000 UT) Oral; Duration: 90 Active Losartan Potassium A ctive Vitamin B-6 100 MG Oral; Duration: 90 Active Pioglitazone HCl Act yocasta Ezetimibe 10 MG Oral; Duration: 90 Active Immunizations Vaccine Route Administration Date Status Comme nts Influenza Unknown 01/06/2019 Refused Influenza Unknown 01/23/2022 Refused Problems Problem Type SNOMED Code ICD Code Onset Dates Problem Status W/U Status Risk Notes Problem Screening for malignant neoplasm of colon (854387766) Encounter for screening for malignant neoplasm of colon (Z12.11) Active confirmed Problem Hepatic fibrosis (67353153) Hepatic fibrosis (K74.0) Active confirmed Problem Elevated liver enzymes level (925855086) Elevated liver enzymes (R74.8) Active confirmed Problem Fatty liver (368591580) Fatty liver (K76.0) Active confirmed Problem Hepatic fibrosis (disorder) (07813116) Liver fibrosis (K74.0) Active confirmed Problem Gastroesophageal reflux disease (931938227) GERD without esophagitis (K21.9) Active confirmed Problem Diverticulosis of colon (244266640) Diverticulosis of colon (K57.30) Active confirmed Problem Hepatic fibrosis (disorder) (35009701) Liver fibrosis (K74.00) Active confirmed Vital Signs Blood pressure diastolic 00 mm Hg 05/28/2024 Height 61 in 05/28/2024 Blood pressure systolic 00 mm Hg 05/28/2024 Weight 197 lbs 05/28/2024 BMI 37.22 kg/m2 05/28/2024 Encounters Encounter Location Date Provider Diagnosis [facility] [address] [address] [place] [phone] 05/28/2024 Kostas Erazo Fatty liver K76.0 ; [...] COLONOSCOPY 01/23/2022 Next Appt Details Provider Name:Kostas Sunday Erazo , 06/15/2025 10:30:00 AM, [address] [place] [address], [address], [place], [address], Insurance Providers Payer Name Payer Address Payer Phone Subscriber Number Group Number Insured Name Patient Relationship to Insured Coverage Start Date Coverage End Date MEDICAID OF [facility] [address] [place] [phone] [id number] HEATHER COMBS Self - patient is the insured Medical (General) History Medical History History ICD Code Diabetes HTN Denies OK,CVA,Lung disease,renal disease Kidney stones, s/p lithotripsy hyperlipidemia GERD steatohepatitis, with a live r biopsy in May of 2012 reviewing mild hepatitis and some fibrosis she had a colonoscopy in December of 2011 [facility] was negative for polyps she [...]
--- OUTSIDE RECORDS SUMMARY | 2025-05-18 12:16 | XMS_ITS | Encounter Summary ---
Author Organization [facility], Address [address] [place] [address] Phone Care Team Providers Care Ground Crewman Aircraft Support Name Role Phone Yoli Townsend MD Primary Care Provider [phone] Encounter Details Date Type Department Care Team (Late Contact Info) Description 11/30/2022 Documentation Only [facility] Dr [address] [place] [phone] Chester Ventura MD [address] [place] [address] [place] [address] Social History Tobacco Use Types [...] Visit [facility] [address] [place] [address] Chester Ventura MD [address] [place] [address] [place] [address] documented as of this encounter Visit Diagnoses Not on filedocumented in this encounter Care Teams Ground Crewman Aircraft Support Relationship Specialty Start Date End Date Yoli Townsend MD [address] [place] PCP - General 06/09/19 documented as of this encounter
--- OUTSIDE RECORDS SUMMARY | 2025-05-18 12:16 | XMS_ITS | Encounter Summary ---
Author Organization [facility] Address [address] [place] [address] Phone Care Team Providers Care Winding Machine Operator Name Role Phone Yoli Townsend MD Primary Care Provider [phone] Encounter Details Date Type Department Care Team (Late Contact Info) Description 06/18/2022 Documentation Only [facility] [address] [place] [address] Chester Ventura MD [address] [place] [address] [place] [address] Social History Tobacco Use Types [...] Visit [facility] [address] [place] [address] Chester Ventura MD [address] [place] [address] [place] [address] documented as of this encounter Visit Diagnoses Not on filedocumented in this encounter Care Teams Winding Machine Operator Relationship Specialty Start Date End Date Yoli Townsend MD [address] [place], [place] PCP - General 06/09/19 documented as of this encounter
--- OUTSIDE RECORDS SUMMARY | 2025-05-18 12:17 | XMS_ITS | Encounter Summary ---
Author Organization [facility] Address [address] [place] [address] Phone Care Team Providers Care Licensing Registration Examiner Name Role Phone Yoli Townsend MD Primary Care Provider [phone] Encounter Details Date Type Department Care Team (Late st Contact Info) Description 06/23/2024 Office Communication [facility] Dr [address] [place] [phone] Chester Ventura MD [address] [place] [address] [place] [address] Social History Tobacco Use Types [...] [facility] [address] [place] [place] [address] Chester Ventura MD [address] [place] [address] [place] [address] documented as of this encounter Visit Diagnoses Not on filedocumented in this encounter Care Teams Licensing Registration Examiner Relationship Specialty Start Date End Date Yoli Townsend MD [address] [place] PCP - General 06/09/19 documented as of this encounter
--- OUTSIDE RECORDS SUMMARY | 2025-05-18 12:17 | XMS_ITS | Encounter Summary ---
Author Organization [facility] Address [address] [place] [address] Phone Care Team Providers Care System Programmer Name Role Phone Yoli Townsend MD Primary Care Provider [phone] Encounter Details Date Type Department Care Team (Late Contact Info) Description 12/30/2024 Documentation Only [facility] [address] [place] [address] Liliya Pérez [address] [place] [address] Social History Tobacco Use Types [...] [facility] [address] [place] [address] Chester Ventura MD [address] [place] [address] [place] [address] documented as of this encounter Visit Diagnoses Not on filedocumented in this encounter Care Teams System Programmer Relationship Specialty Start Date End Date Yoli Townsend MD [address] [place], [place] PCP - General 06/09/19 documented as of this encounter
--- OUTSIDE RECORDS SUMMARY | 2025-05-18 12:17 | XMS_ITS | Clinical Summary ---
Author Organization [employer] Address [address] [place] [address] 7[address] [place] [address] Care Team Providers Care Grant Manager Name Role Phone Unavailable Primary Care Provider [...] patient's age to complete this topic Insurance [facility]
--- OUTSIDE RECORDS SUMMARY | 2025-05-18 12:17 | XMS_ITS | Encounter Summary ---
Author Organization [facility] Address [address] [place] [address] Phone Care Team Providers Care Executive Personal Assistant Name Role Phone Yoli Townsend MD Primary Care Provider [phone] Encounter Details Date Type Department Care Team (Late st Contact Info) Description 10/07/2023 Documentation Only [facility] [address] [place] [address] Liliya Pérez [address] [place] [address] Social History Tobacco Use Types [...] [facility] [address] [place] [address] Chester Ventura MD [address] [place] [address] [place] [address] documented as of this encounter Visit Diagnoses Not on filedocumented in this encounter Care Teams Executive Personal Assistant Relationship Specialty Start Date End Date Yoli Townsend MD [address] [place], [place] PCP - General 06/09/19 documented as of this encounter
--- OUTSIDE RECORDS SUMMARY | 2025-05-18 12:17 | XMS_ITS | Encounter Summary ---
Author Organization [facility], Address [address] [place] [address] Phone Care Team Providers Care Women'S Soccer Coach Name Role Phone Yoli Townsend MD Primary Care Provider [phone] Reason for Visit * Reason Comments Med Refill Encounter Details Date Type Department Care Team (Late Contact Info) Description 02/17/2020 Refill [facility] [address] [place] [address] Chester Ventura MD [address] [facility] [place] [address] Social History Tobacco Use Types [...] Visit [facility] [place], [address] [place] [address] Chester Ventura MD [address] [facility] [place] [address] documented as of this encounter Visit Diagnoses Not on filedocumented in this encounter Care Teams Women'S Soccer Coach Relationship Specialty Start Date End Date Yoli Townsend MD [address] [place], [place] PCP - General 06/09/19 documented as of this encounter
--- OUTSIDE RECORDS SUMMARY | 2025-05-18 12:17 | XMS_ITS | Encounter Summary ---
Author Organization [facility] Address [address] [place] [address] Phone Care Team Providers Care Motorsports Technician Name Role Phone Yoli Townsend MD Primary Care Provider [phone] Encounter Details Date Type Department Care Team (Late st Contact Info) Description 09/27/2023 Documentation Only [facility] [address] [place] [place] [address] Liliya Pérez [address] [place] [address] Social History Tobacco Use Types [...] [facility] [address] [place] [address] Chester Ventura MD [address] [place] [address] [place] [address] documented as of this encounter Visit Diagnoses Not on filedocumented in this encounter Care Teams Motorsports Technician Relationship Specialty Start Date End Date Yoli Townsend MD [address] [place], [place] PCP - General 06/09/19 documented as of this encounter
--- OUTSIDE RECORDS SUMMARY | 2025-05-18 12:17 | XMS_ITS | Encounter Summary ---
Author Organization [facility] Address [address] [place] [address] Phone Care Team Providers Care Machine Maintenance Technician Name Role Phone Yoli Townsend MD Primary Care Provider [phone] Encounter Details Date Type Department Care Team (Late st Contact Info) Description 09/27/2023 Documentation Only [facility] [address] [place] [address] Liliya Pérez [address] [place] [address] Social History Tobacco Use Types [...] [facility] [address] [place] [address] Chester Ventura MD [address] [place] [address] [place] [address] documented as of this encounter Visit Diagnoses Not on filedocumented in this encounter Care Teams Machine Maintenance Technician Relationship Specialty Start Date End Date Yoli Townsend MD [address] [place], [place] PCP - General 06/09/19 documented as of this encounter
--- OUTSIDE RECORDS SUMMARY | 2025-05-18 12:17 | XMS_ITS | Encounter Summary ---
Author Organization [facility] Address [address] [place] [address] Phone Care Team Providers Care Value Stream Leader Name Role Phone Yoli Townsend MD Primary Care Provider [phone] Encounter Details Date Type Department Care Team (Late Contact Info) Description 02/21/2022 Documentation Only [facility] [address] [place] [address] Chester Ventura MD [address] [place] [address] [place] [address] Social History Tobacco Use [...] Visit [facility] [address] [place] [address] Chester Ventura MD [address] [place] [address] [place] [address] documented as of this encounter Visit Diagnoses Not on filedocumented in this encounter Care Teams Value Stream Leader Relationship Specialty Start Date End Date Yoli Townsend MD [address] [place], [place] PCP - General 06/09/19 documented as of this encounter
--- OUTSIDE RECORDS SUMMARY | 2025-05-18 12:17 | XMS_ITS | Encounter Summary ---
Author Organization [facility] [place], Address [address] [place] [address] Phone Care Team Providers Care Product Strategy Director Name Role Phone Yoli Townsend MD Primary Care Provider [phone] Encounter Details Date Type Department Care Team (Late Contact Info) Description 06/12/2023 Documentation Only [facility] Dr [address] [place] [address] Chester Ventura MD [address] [place] [address] [place] [address] Social History Tobacco Use Types [...] Visit [facility] [address] [place] [address] Chester Ventura MD [address] [place] [address] [place] [address] documented as of this encounter Visit Diagnoses Not on filedocumented in this encounter Care Teams Product Strategy Director Relationship Specialty Start Date End Date Yoli Townsend MD [address] [place] PCP - General 06/09/19 documented as of this encounter
--- OUTSIDE RECORDS SUMMARY | 2025-05-18 12:17 | XMS_ITS | Encounter Summary ---
Author Organization [facility] Address [address] [place] [address] Phone Care Team Providers Care Pumper Gauger Name Role Phone Yoli Townsend MD Primary Care Provider [phone] Encounter Details Date Type Department Care Team (Late st Contact Info) Description 10/08/2023 Documentation Only [facility] [address] [place] [address] Liliya Pérez [address] [place] [address] Social History Tobacco Use Types [...] [facility] [address] [place] [address] Chester Ventura MD [address] [place] [address] [place] [address] documented as of this encounter Visit Diagnoses Not on filedocumented in this encounter Care Teams Pumper Gauger Relationship Specialty Start Date End Date Yoli Townsend MD [address] [place], [place] PCP - General 06/09/19 documented as of this encounter
--- OUTSIDE RECORDS SUMMARY | 2025-05-18 12:17 | XMS_ITS | Encounter Summary ---
Author Organization [facility], Address [address] [place] [address] Phone Care Team Providers Care Analog Circuit Designer Name Role Phone Yoli Townsend MD Primary Care Provider [phone] Reason for Visit * Reason Comments Med Refill Encounter Details Date Type Department Care Team (Late Contact Info) Description 02/18/2020 Refill [facility] [address] [place] [address] Chester Ventura MD [address] [facility] [place] [address] Social History Tobacco Use Types [...] Visit [facility] [place], [address] [place] [address] Chester Ventura MD [address] [facility] [place] [address] documented as of this encounter Visit Diagnoses Not on filedocumented in this encounter Care Teams Analog Circuit Designer Relationship Specialty Start Date End Date Yoli Townsend MD [address] [place], [place] PCP - General 06/09/19 documented as of this encounter
--- OUTSIDE RECORDS SUMMARY | 2025-05-18 12:17 | XMS_ITS | Encounter Summary ---
Author Organization [employer] [facility] Address [address] [facility] 7t [place] [address] Care Team Providers Care Professional Soccer Player Name Role Phone Unavailable Primary Care Provider [...]
--- OUTSIDE RECORDS SUMMARY | 2025-05-18 12:17 | XMS_ITS | Encounter Summary ---
Author Organization [facility] Address [address] [facility] 7t [place] [address] Care Team Providers Care Supervisor Asbestos Removal Name Role Phone Unavailable Primary Care Provider [...]
== END 2025-05-18 11:03 | disposition home or self-care (01) ==
LOC: HO.HMCH 10:25
PROVIDERS: PCP Internal Medicine; Visit Provider Internal Medicine
DX: I10 Essential (primary) hypertension (principal); E78.5 Hyperlipidemia, unspecified; E11.65 Type 2 diabetes mellitus with hyperglycemia; M85.80 Other specified disorders of bone density and structure, unspecified site; Z13.9 Encounter for screening, unspecified

== ENCOUNTER → 2025-05-18 10:24 | Outpatient (BNVA) | payer MEDICAID, SELFPAY | PROVIDERS: PCP Internal Medicine; Visit Provider Internal Medicine | DX: I10 Essential (primary) hypertension (principal); M85.80 Other specified disorders of bone density and structure, unspecified site; E11.9 Type 2 diabetes mellitus without complications; R79.89 Other specified abnormal findings of blood chemistry; E78.5 Hyperlipidemia, unspecified; E11.65 Type 2 diabetes mellitus with hyperglycemia | CPT/HCPCS: 83036; 99212 ==

== ENCOUNTER 2025-06-25 07:39 | Outpatient (AMB) | payer MEDICARE, MEDICAID, SELFPAY ==
--- OUTSIDE RECORDS SUMMARY | 2025-05-27 06:00 | XMS_ITS ---
Author Organization [facility] Address [address] [place] [address] Care Team Providers Care Career Coordinator Name Role Phone Yoli Townsend Primary Care Provider Unavailab Kostas Murguia Unavailable [phone] REASON FOR VISIT liver fibrosis Encounters Encounter Location Date Provider Diagnosis [facility] [address] [place] [address] 05/27/2025 Kostas Erazo Plan Of Treatment Next Appt Details Provider Name:Kostas Erazo , 06/16/2026 09:20:00 AM, [address], [address], [place], [address], Progress Notes * HEATHER COMBS EDOB: (65 yo F)Acc No.[id number]:05/27/2025 Progress Notes Patient: Pedro Pablo CHEUNG MISSY SHAHEEN Provider: Etelvina Erazo MD :1960 A ge:65 Y S ex:Female Date:05/27/2025 Address:[address] [place] [address] [id number] Pcp:Yoli Padilla Subjective: * Chief Complaints: * L iver fibrosis * The named appointment provid er may or may not be the originator of this progress note, and it is not deemed complete until electronically signed by the appointment provider. Sign off status: Pending * Provider: Etelvina Erazo MD Date: Generated for Printi ng/Faxing/eTransmitting on: 08/25/2024 07:42 AM EST
--- OUTSIDE RECORDS SUMMARY | 2025-06-15 05:30 | XMS_ITS ---
Author Organization [facility] Address [address] [place] [address] Care Team Providers Care Knit Goods Mender Name Role Phone Yoli Townsend Primary Care Provider Kostas Hinson Unavailable [phone] Allergies No Known Allergies REASON FOR VISIT [...] Status Risk Notes Problem Colon cancer screening (688259057) Colon cancer screening (Z12.11) Active confirmed Vital Signs Blood pressure systolic 001 mm Hg 06/15/20 25 Blood pressure diastolic 01 mm Hg 025 Height 61 in 06/15/2025 Weight 190.6 lbs 06/15/2025 BMI 36.01 kg/m2 06/15/2025 Encounters Encounter Location Date Provider Diagnosis [facility] [address] [place] [address] 06/15/2025 Kostas Erazo Fatty liver K76.0 ; [...] CAPSULAS POR VIA ORAL DOS VECES AL IEVLISSE Orally Twice a day; Duration: 30 days Treatment Notes Assessment Notes Colon cancer screening Repeat colonoscop y in 2026 Pending Test Test Name Order Date LIVER PROFILE 06/15/2025 CBC w DIFF 06/15/2025 ALPHA-FETOPROTEIN,TUMOR MARKER Prothrombin Time INR 06/15/2025 Liver Fibrosis Pnl 06/15/2025 Next Appt Details Follow Up: 1 Year, Reason: Provider Name:Kostas Erazo , 06/16/2026 09:20:00 AM, [address] [place] [address], [address], [place], [address], History and Physical Notes * HPI (History [...] * HEATHER COMBS EDOB: (65 yo F)Acc No.[id number]:06/15/2025 Progress Notes Patient: HEATHER TOMLIN Provider: Etelvina Erazo MD :1960 A ge:65 Y S ex:Female Date:06/15/2025 Address:[address] [place] [address] , [facility], [id number] Pcp:Yoli Padilla Subjective: * Chief Complaints: * [...] ascites. * Medical History: Diabetes HTN Denies [place],CVA,Lung disease,renal disease Kidney stones, s/p lithotripsy Hyperlipidemia [...] CAPSULAS POR VIA ORAL DOS VECES AL IVLEISSE, Orally, Twice a day, 30 days, 120, Refills 11. * Immunizations: Influenza (Not administered - Refused: Patient decision) * Preventive Medicine: Counseling: C are goal follow-up plan: A josé Normal BMI Follow-up D ietary management education, guidance, and counseling, B KS management provided Y es. Urinary Incontinence: U [...] Erazo MD Date: 08/15/2024 Generated for Joanie castañeda/Bill/Sayraitting on: 08/25/2024 07:42 AM EST
--- OUTSIDE RECORDS SUMMARY | 2025-06-22 14:15 | XMS_ITS | Encounter Summary ---
Author Organization [facility], Address [address] [place] [address] Phone Care Team Providers Care Habitat Management Coordinator Name Role Phone Yoli Townsend MD Primary Care Provider [phone] Encounter Details Date Type Department Care Team (Late st Contact Info) Description 06/22/2025 2:15 PM EST Office Visit [facility] [place], [address] [place] [address] Chester Ventura MD [address] [place] [id number] Renal disorder due to type 2 diabetes mellitus <Unspecified DM Medication; Diabetic nephropathy> (HCC) (Primary Dx); Chronic kidney disease stage 2; Essential hypertension; Nephrolithiasis Social History Tobacco Use Types Packs/Day Years [...] on file documented as of this encounter Progress Notes * Chester Ventura MD - 06/22/2025 2:15 PM EST Images from the original note were not included. PATIENT: Kandice Medina : 1960 ENCOUNTER: 06/22/2025 PCP: Yoli Townsend MD HPI: Kandice Medina is a 65 y.o. year old female with a history of Nephrolithiasis hypertension DM and obesity who fortunately has been doing remarkably well in the last 6 months has been able to loseweight down to 290 pounds, she was on ozempic currently on hold due to insurance issues.Regards to nephrolithiasis the patient reports having undergone approximately 7 urological procedures for kidney stones, with significant hematuria following the most recent procedure that subsequently cleared. She was contacted by her urologist in March or April to repeat a 24-hour urine collection, which she declined, stating she is tired of doing that as results are consistently the same. She is seeking a second opinion regarding her urological care and expresses frustration that despite multipleprocedures, nothing comes out. Regarding her diabetes management, the patient reports significant changes since turning 65 and switching insurance plans. She has been without diabetes injections for 25 days after her previous medication coverage ended, with new coverage not beginning until July 05. She was previously on injections for sugar control but is currently managing without them. She has modified her diet, stopping candy consumption and limiting intake to occasional fruit like pears for breakfast and vegetables for other meals, though she notes she cannot tolerate spinach, potatoes, or cauliflower. The patient reports an 8-pound weight loss, decreasing from 200 pounds to 192 pounds currently, with a low of 191 pounds noted at a recent visit. She continues taking Losartan as prescribed and denies leg swelling. ROS: Constitutional: No fever. Respiratory: No shortness of breath. Cardiovascular: No chest pain. Gastrointestinal: No abdominal pain, nausea or vomiting. Genitourinary: No hematuria. All other systems reviewed and are negative. 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 Chronic kidney disease stage 2 09/01/2019 Essential hypertension 09/01/2019 PAST SURGICAL HISTORY: Past Surgical History: Procedure Laterality Date GALLBLADDER SURGERY HYSTERECTOMY ROTATOR CUFF REPAIR SHOULDER SURGERY SOCIAL HISTORY: Social History Tobacco Use Smoking status: Never Smokeless tobacco: Not on file Substance Use Topics Alcohol use: No FAMILY HISTORY: Family History Problem Relation Age of Onset Diabetes Mother Hypertension Mother Heart disease Mother [place] Diabetes Father Hypertension Father Cancer Father Cancer Sister MEDICATIONS: Outpatient Encounter Medications as of 06/22/2025 Medication Sig Dispense Refill aspirin (ST XAVI) 81 MG EC tablet Take 1 tablet by mouth 1 (one) time each day ciprofloxacin (Cipro) 500 MG tablet Take 1 tablet (500 mg total) by mouth in the morning and 1 tablet (500 mg total) in the evening. Do all this for 7 days. 14 tablet 0 cyanocobalamin (VITAMIN B-12) 1000 MCG tablet TOME 1 TABLETA POR V A ORAL TODOS LOS D FOR 90 DAYS cyclobenzaprine (FLEXERIL) 10 MG tablet Comments: Filled Date: Jan 27 2015 12:00AM Patient Notes: TOME MARK ANTHONY TABLETA POR VIA ORAL FARA VECES AL IVELISSE CUANDO SEA NECESARIO F OR MUSCLE SPASM Duration: 30 ergocalciferol (VITAMIN D2) 1.25 MG (54714 UT) capsule TOME 1 CAPSULA POR VIA ORAL ONE TIME PER WEEK 4 capsule 6 ezetimibe (ZETIA) 10 MG tablet Take 1 tablet by mouth 1 (one) time each day ferrous sulfate 325 (65 Fe) MG EC tablet TOME MARK ANTHONY TABLETA FARA VECES AL IVELISSE 90 tablet 3 gabapentin (NEURONTIN) 100 MG capsule TOME 1 C PSULA POR V A ORAL TODOS LOS D AL ACOSTARSE Jardiance 10 MG tablet TOME MARK ANTHONY TABLETA TODOS LOS D losartan (COZAAR) 25 MG tablet Take 1 tablet (25 mg total) by mouth 1 (one) time each day 90 tablet3 metFORMIN (GLUCOPHAGE) 500 MG tablet TOME DOS TABLETAS ORALLY 2 TIMES A DAY FOR 90 DAYS metFORMIN XR (GLUCOPHAGE-XR) 750 MG 24 hr tablet Take 1 tablet by mouth 2 (two) times a day omeprazole (PriLOSEC) [address] capsule Comments: Filled Date: Mar 07 2015 12:00AM Patient Notes:TAKE 1 CAPSULE (20MG) BY ORAL ROUTE EVERY DAY BEFORE A MEAL Duration: 30 Ozempic, 1 MG/DOSE, 4 MG/3ML solution pen-injector INJECT 1 MG (0.75 ML) SUBCUTANEOUSLY EVERY WEEK FOR 30 DAYS pyridoxine (VITAMIN B-6) 100 MG tablet TOME MARK ANTHONY TABLETA POR V A ORAL A DIARIO repaglinide (PRANDIN) 0.5 MG tablet FOR 30 DAYS 1- 2 TABS ORALLY PRIOR TO DINNER DAILY ADMINISTER WITHIN 15 MINUTES OF A MEAL OR SNACK rosuvastatin (CRESTOR) 10 MG tablet TOME MARK ANTHONY TABLETA POR V A ORAL TODOS LOS D traMADol (ULTRAM) 50 MG tablet TAKE 50 MG POR V A ORAL DOS VECES AL D A NEEDED FOR PAIN Trulicity 3 MG/0.5ML solution pen-injector INJECT 3 MG (0.5 ML) SUBCUTANEOUSLY EVERY WEEK FOR 90 DAYS (Patient not taking: Reported on 06/22/2025) ursodiol (ACTIGALL) 300 MG capsule TOME 2 CAPSULAS POR VIA ORAL DOS VECES AL IVELISSE DOS VECES AL D A ursodiol (ACTIGALL) 500 MG tablet Take 2 tablets by mouth 1 (one) time each day Vitamin D-[address] 25 MCG (1000 UT) tablet TOME MARK ANTHONY TABLETA POR V A ORAL TODOS LOS D No facility-administered encounter medications on file as of 06/22/2025. MEDICATION REVIEW: I have reviewed the patient's current medications. ALLERGIES: is allergic to atorvastatin, ciprofloxacin, and duloxetine. PHYSICAL EXAM: Weight 192 lbs BP 127/82 Constitutional: No apparent distress Extremities: Edema None LABORATORY REVIEW: I have reviewed the labs noted above as well as in the chart, in CIS and in Care Everywhere. DOCUMENTATION REVIEW: I have reviewed the applicable outside notes located in the chart, in CIS and in Care Everywhere. ASSESSMENT: 1. Renal disorder due to type 2 diabetes mellitus <Unspecified DM Medication; Diabetic nephropathy> (HCC) 2. Chronic kidney disease stage 2 3. Essential hypertension 4. Nephrolithiasis Kandice is a very pleasant 65-year-old female with history of recurrent kidney stones, diabetes, hypertension, and hyperlipidemia presenting for nephrology follow-up after multiple urological procedureswho is here for routine follow-up. CKD stage II fortunately her renal parameters are essentially normal creatinine of 0.7 mg/dL with no recent evidence of microalbuminuria. She has had metabolic syndrome with obesity and insulin resistant state fortunately responding very well to GLP-1 agonist and on Repatha as part of her lipid-lowering therapy, she is lost nearly 15 pounds in the recent months her metabolic parameters are continuing to improve. Plan: - Continue with ARB - Continue with SGLT2i Recurrent nephrolithiasis Assessment: Patient has undergone approximately 7 urological procedures for kidney stone removal with persistent recurrence. Most recent procedure resulted in significant hematuria that subsequently resolved. Patient expresses frustration with repeated interventions and declining further proceduresdue to lack of efficacy. Considering second opinion consultation. Plan: - Meantime continue with stone prophylactic regimen. - will follow. Diabetes mellitus/Obesity/Early nephropathy. Assessment: Patient reports discontinuation of diabetes injections for 25 days due to insurance plan changes at age 65. Currently managing with dietary modifications including elimination of candy and limited fruit intake. Recent glucose level 127 mg/dL. Plan: - Continue dietary modifications with reduced sugar intake - Resume Gp1a - Continue SGLT2i and ARB Hypertension Assessment: Patient continues on Losartan with stable blood pressure control. No reported leg swelling or other signs of fluid retention. Plan: - Continue Losartan Hyperlipidemia Assessment: Patient reports recent improvement in cholesterol levels per Yoli Jason. Has been on cholesterol medication for 10 years with good response. Uncertainty regarding continuation due to insurance plan changes. Plan: - Follow-up appointment scheduled for end of June or early July to reassess lipid management - Routine laboratory studies to be ordered Weight loss Assessment: Patient reports 8-pound weight loss from 200 to 192 pounds, with recent weight of 191 pounds documented. Plan: - Continue monitoring weight trends, hoping she can resume GLP1a F/u 6 months. Orders Placed This Encounter Renal Function Panel Vitamin D 25 Hydroxy Urine Albumin / Creatinine Ratio Hemoglobin A1c PTH, Intact Iron Panel (Fe, TIBC, TSAT) CBC Uric Acid documented in this encounter Plan of Treatment Upcoming Encounters Date Type Department Care Team (Late st Contact Info) Description 12/21/2025 3:00 PM EDT Office Visit [facility], [address] [place] [address] Chester Ventura MD [address] [place] [phone] Scheduled Orders Name Type Priority Associated Diagnoses Orde r Schedule Renal Function Panel Lab Routine Renal disorder due to type 2 diabetes mellitus <Unspecified DM Medication; Diabetic nephropathy> (HCC) Chronic kidney disease stage 2 Essential hypertension Nephrolithiasis Expected: 06/22/2025, Expires: 07/22/2026 Vitamin D 25 Hydroxy Lab Routine Renal disorder due to type 2 diabetes mellitus <Unspecified DM Medication; Diabetic nephropathy> (HCC) Chronic kidney disease stage 2 Essential hypertension Nephrolithiasis Expected: 06/22/2025, Expires: 07/22/2026 Urine Albumin / Creatinine Ratio Lab Routine Renal disorder due to type 2 diabetes mellitus <Unspecified DM Medication; Diabetic nephropathy> (HCC) Chronic kidney disease stage 2 Essential hypertension Nephrolithiasis Expected: 06/22/2025, Expires: 07/22/2026 Hemoglobin A1c Lab Routine Renal disorder due to type 2 diabetes mellitus <Unspecified DM Medication; Diabetic nephropathy> (HCC) Chronic kidney disease stage 2 Essential hypertension Nephrolithiasis Expected: 06/22/2025, Expires: 07/22/2026 PTH, Intact Lab Routine Renal disorder due to type 2 diabetes mellitus <Unspecified DM Medication; Diabetic nephropathy> (HCC) Chronic kidney disease stage 2 Essential hypertension Nephrolithiasis Expected: 06/22/2025, Expires: 07/22/2026 Iron Panel (Fe, TIBC, TSAT) Lab Routine Renal disorder due to type 2 diabetes mellitus <Unspecified DM Medication; Diabetic nephropathy> (HCC) Chronic kidney disease stage 2 Essential hypertension Nephrolithiasis Expected: 06/22/2025, Expires: 07/22/2026 CBC Lab Routine Renal disorder due to type 2 diabetes mellitus <Unspecified DM Medication; Diabetic nephropathy> (HCC) Chronic kidney disease stage 2 Essential hypertension Nephrolithiasis Expected: 06/22/2025, Expires: 07/22/2026 Uric Acid Lab Routine Renal disorder due to type 2 diabetes mellitus <Unspecified DM Medication; Diabetic nephropathy> (HCC) Chronic kidney disease stage 2 Essential hypertension Nephrolithiasis Expected: 06/22/2025, Expires: 07/22/2026 documented as of this encounter Visit Diagnoses Diagnosis Renal disorder due to type 2 diabetes mellitus <Unspecified DM Medication; Diabetic nephropathy> (HCC)- Primary Chronic kidney disease stage 2 Essential hypertension Nephrolithiasis documented in this encounter Care Teams Habitat Management Coordinator Relationship Specialty Start Date End Date Yoli Townsend MD [address] [place] [address] [place] [address] PCP - General 06/09/19 documented as of this encounter
--- OUTSIDE RECORDS SUMMARY | 2025-06-25 07:42 | XMS_ITS | Encounter Summary ---
Author Organization [facility], Address [address] [place] [address] Phone Care Team Providers Care Ssis Developer Name Role Phone Yoli Townsend MD Primary Care Provider Reason for Visit * Reason Comments Med Refill Encounter Details Date Type Department Care Team (Late Contact Info) Description 02/18/2020 Refill [facility] [address] [place] [address] Chester Ventura MD [address] [place] [address] Social History Tobacco Use Types [...] Department Care Team (Late Contact Info) Description 12/21/2025 3:00 PM EDT Office Visit [facility], [address] [place] [address] Chester Ventura MD [address] [facility] [address] [place] [address] documented as of this encounter Visit Diagnoses Not on filedocumented in this encounter Care Teams Ssis Developer Relationship Specialty Start Date End Date Yoli Townsend MD [address] [place] PCP - General 06/09/19 documented as of this encounter
--- OUTSIDE RECORDS SUMMARY | 2025-06-25 07:42 | XMS_ITS | Encounter Summary ---
Author Organization [facility] Address [address] [place] [address] Phone Care Team Providers Care Silk Examiner Name Role Phone Yoli Townsend MD Primary Care Provider [phone] Encounter Details Date Type Department Care Team (Late Contact Info) Description 06/06/2022 Documentation Only [facility] [address] [place] [address] Chester Ventura MD [address] [place] [address] [place] [address] Social History Tobacco Use Types [...] [facility] [address] [place] [address] Chester Ventura MD [address] [place] [address] [place] [address] documented as of this encounter Visit Diagnoses Not on filedocumented in this encounter Care Teams Silk Examiner Relationship Specialty Start Date End Date Yoli Townsend MD [address] [place], [place] PCP - General 06/09/19 documented as of this encounter
--- OUTSIDE RECORDS SUMMARY | 2025-06-25 07:42 | XMS_ITS | Clinical Summary ---
Author Organization [facility], Address [address] [place] [address] [place] [address] Phone Care Team Providers Care Automotive Service Director Name Role Phone Yoli Townsend MD Primary Care Provider [phone] Allergies Active Allergy Reactions Criticality Noted Date [...] 0 Active ergocalciferol (VITAMIN D2) 1.25 MG (56935 UT) capsule TOME 1 CAPSULA POR VIA [...] 09/01/19 20 06/05/2021 Renal stone 09/01/2019 06/05/2021 Encounters Date Type Department Care Team Description 06/22/2025 2:15 PM EST Office Visit [facility], [address] [place] [address] Chester Ventura MD Renal disorder due to type 2 diabetes mellitus <Unspecified DM Medication; Diabetic nephropathy> (HCC) (Primary Dx); Chronic kidney disease stage 2; Essential hypertension; Nephrolithiasis from Last 3 Months Family History Medical History Relation Comments Cancer Father Diabetes Father Hypertension Father Diabetes Mother Heart disease Mother [place] Hypertension Mother Cancer Sister Relation Status Comments [...] Visit [facility], [address] [place] [address] Chester Ventura MD [address] [place] [address] Health Maintenance Due Date Last Done [...] PM EDT) Hemoglobin A1C 8.1(H) (4-6) % [place] [id number] Comment: HEMOGLOBIN A1C(%) GLUCOSE CONTROL INDEX <6% EXCELLENT 6-7% VERY GOOD 7-8% GOOD 8-10% FAIR >10% POOR Hemoglobin (Hb) A1c testing is performed by Lary Roselyn-quant immunoassay. Any cause of shortened erythrocyte survival will reduce exposure of erythrocytes to glucose with a consequent decrease in Hb A1c (%). Testing performed or reported by ~[facility], ~a Service of [facility], ~[address] [place] [id number]~ 02/09/2019 3:56 PM EDT us Chester Ventura MD LAB BLOOD ORDERABLES Final Resul t [place] [id number] from Last 3 Months or Most Recently Relevant to Health Maintenance [place] Medicare Care Teams Automotive Service Director Relationship Specialty Start Date End Date Yoli Townsend MD [address] [place] [address] PCP - General 06/09/19
--- OUTSIDE RECORDS SUMMARY | 2025-06-25 07:42 | XMS_ITS | Encounter Summary ---
Author Organization [facility] Address [address] [place] [address] Phone Care Team Providers Care Teacher Industrial Arts Name Role Phone Yoli Townsend MD Primary Care Provider [phone] Encounter Details Date Type Department Care Team (Late Contact Info) Description 06/01/2022 Documentation Only [facility] [address] [place] [address] Chester Ventura MD [address] [place] [address] [place] [address] Social History Tobacco Use Types [...] Visit [facility] [address] [place] [address] Chester Ventura MD [address] [place] [address] [place] [address] documented as of this encounter Visit Diagnoses Not on filedocumented in this encounter Care Teams Teacher Industrial Arts Relationship Specialty Start Date End Date Yoli Townsend MD [address] [place], [place] PCP - General 06/09/19 documented as of this encounter
--- OUTSIDE RECORDS SUMMARY | 2025-06-25 07:42 | XMS_ITS | Patient Health Record ---
Author Organization [facility] Address [address] [place] [address] Care Team Providers Care Mold Setter Name Role Phone Yoli Townsend Primary Care Provider UnavailKostas Love Unavailable [phone] Allergies No Known Allergies Reason For Referral No Information Medications Medication SIG (Take, Route, Frequency, Duration) Notes Start Date End Date Status Vitamin D2 10 MCG (400 UNIT) Tablet 2 tablets Orally Once a day; Duration: 30 day(s) Active Ozempic (1 MG/DOSE) 4 MG/3ML Solution Pen-injector Subcutaneous; Duration: 28 Active Allopurinol 100 MG Tablet 1 tablet Orally Once a day Active Repatha Pushtronex System 420 MG/3.5ML Solution Cartridge INJECT 420MG POR V A SUBCUT MATT ONE A MONTH Subcutaneous; Duration: 30 Active traMADol HCl 50 MG Tablet TAKE 1 TABLET BY MOUTH 2 TIMES A DAY NEEDED FOR PAIN FOR 30 DAYS Oral; Duration: 30 Active Ursodiol 300 MG Capsule tome 2 capsulas por via oral dos veces al ivelisse Orally Twice a day; Duration: 30 days Active Omeprazole 20 MG Capsule Delayed Release 1 Orally QAM; Duration: 30 day(s) 01/23/2022 Active PriLOSEC 20 MG Capsule Delayed Release 1 capsule Orally Once a day; Duration: 30 days Active Jardiance 10 MG Tablet Oral; Duration: 90 Active Pioglitazone HCl Not -Taking/PRN Losartan Potassium A ctive Vitamin D-[address] 25 MCG (1000 UT) Tablet Oral; Duration: 90 Active Fish Oil 1000 MG Tablet Chewable 1 capsule Orally Once a day Active Ursodiol 300 MG Capsule TOME 2 CAPSULAS POR VIA ORAL DOS VECES AL IVELISSE Orally Twice a day; Duration: 30 days Active Rosuvastatin Calcium 40 MG Tablet TOME MARK ANTHONY TABLETA POR V A ORAL A DIARIO Oral; Duration: 90 Active Baclofen 10 MG Tablet Oral; Duration: 30 Active metFORMIN HCl 500mg Tablet Orally Twice a day Not-Takin g/PRN Vitamin C 500 MG Capsule as directed Orally Active Ezetimibe 10 MG Tablet Oral; Duration: 90 Active Vitamin B12 Active Vitamin B-6 100 MG Tablet Oral; Duration: 90 Active Immunizations Vaccine Route Administration Date Status Comme nts Influenza Unknown 01/06/2019 Refused Influenza Unknown 01/23/2022 Refused Influenza Unknown 06/15/2025 Refused Social History Social History Drug/Alcohol: Social Info Question Answer Notes AUDIT-C (Standard) Did you have a drink containing alcohol in the past year? No Points 0 Interpretation Negative Additional Details Category Social Info Options Details Miscellaneous: Marital status: single Occupation: On disability Section Notes: Nonsmoker; no alcohol Nonsmoker; no alcohol Nonsmoker; no alcohol Nonsmoker; no alcohol Nonsmoker; no alcohol Nonsmoker; no alcohol Nonsmoker; no alcohol Nonsmoker; no alcohol Nonsmoker; no alcohol Nonsmoker; no alcohol Nonsmoker; no alcohol Nonsmoker; no alcohol Nonsmoker; no alcohol Nonsmoker; no alcohol Nonsmoker; no alcohol Problems Problem Type SNOMED Code ICD Code Onset Dates Problem Status W/U Status Risk Notes Problem Colon cancer screening (518354478) Colon cancer screening (Z12.11) Active confirmed Problem Screening for malignant neoplasm of colon (046604801) Encounter for screening for malignant neoplasm of colon (Z12.11) Active confirmed Problem Hepatic fibrosis (84080768) Hepatic fibrosis (K74.0) Active confirmed Problem Elevated liver enzymes level (401764551) Elevated liver enzymes (R74.8) Active confirmed Problem Fatty liver (752884982) Fatty liver (K76.0) Active confirmed Problem Hepatic fibrosis (disorder) (46558873) Liver fibrosis (K74.0) Active confirmed Problem Gastroesophageal reflux disease (375711636) GERD without esophagitis (K21.9) Active confirmed Problem Diverticulosis of colon (500942142) Diverticulosis of colon (K57.30) Active confirmed Problem Hepatic fibrosis (disorder) (03735066) Liver fibrosis (K74.00) Active confirmed Vital Signs Blood pressure diastolic 01 mm Hg 06/15/2025 Height 61 in 06/15/2025 Blood pressure systolic 001 mm Hg 06/15/2025 Weight 190.6 lbs 06/15/2025 BMI 36.01 kg/m2 06/15/2025 Encounters Encounter Location Date Provider Diagnosis [facility] [address] [place] [address] 06/15/2025 Kostas Erazo Fatty liver K76.0 ; [...] Test Name Order Date LIVER PROFILE 06/15/2025 LIVER PROFILE 08/06/2013 LIVER PROFILE 12/24/2017 LIVER PROFILE 11/29/2020 LIVER PROFILE 01/23/2022 LIVER PROFILE 05/29/2023 LIVER PROFILE 05/28/2024 CBC w DIFF 05/28/2024 CBC w DIFF 05/29/2023 CBC w DIFF 01/23/2022 CBC w DIFF 06/15/2025 PROTHROMBIN TIME (PT, INR) 01/23/2022 PROTHROMBIN TIME (PT, INR) 12/24/2017 ALPHA-FETOPROTEIN,TUMOR MARKER 8 ALPHA-FETOPROTEIN,TUMOR MARKER 0 ALPHA-FETOPROTEIN,TUMOR MARKER 1 ALPHA-FETOPROTEIN,TUMOR MARKER 5 ALPHA-FETOPROTEIN,TUMOR MARKER 4 ALPHA-FETOPROTEIN,TUMOR MARKER 5 ALPHA-FETOPROTEIN,TUMOR MARKER 7 ALPHA-FETOPROTEIN,TUMOR MARKER 2 ALPHA-FETOPROTEIN,TUMOR MARKER 3 ALPHA-FETOPROTEIN,TUMOR MARKER 4 US ABD 01/23/2022 US ABD 11/29/2020 US LIVER BIOPSY CORE GUIDE 04/22/2012 Prothrombin Time INR 06/15/2025 Prothrombin Time INR 05/28/2024 Liver Fibrosis Pnl 01/23/2022 Liver Fibrosis Pnl 05/28/2024 Liver Fibrosis Pnl 06/15/2025 US abdomen comp w elastography 4 US abdomen comp w elastography 4 Future Test Test Name Order Date UPPER GI ENDOSCOPY 11/15/2011 COLONOSCOPY 11/15/2011 COLONOSCOPY 01/23/2022 Next Appt Details Provider Name:Kostas Brand Kacey , 06/16/2026 09:20:00 AM, [address] [place] [address], [address], [place], [address], Insurance Providers Payer Name Payer Address Payer Phone Subscriber Number Group Number Insured Name Patient Relationship to Insured Coverage Start Date Coverage End Date MEDICARE OF [place] [address] [place] [address] [phone] [id number] [employer]ER [employer]BS Self - patient is the insured 5 MEDICAID OF [facility] [address] [place] [address] [phone] [id number] HEATHER COMBS Self - patient is the insured 5 Medical (General) History Medical History History ICD Code Diabetes HTN Denies SC,CVA,Lung disease,renal disease Kidney stones, s/p lithotripsy Hyperlipidemia GERD Steatohepatitis, with a live r biopsy in May of 2012 reviewing mild hepatitis and some fibrosis Colonoscopy in December of 2011 which was neg ative for polyps Upper endoscopy in December 12 which revealed a small hiatal hernia, but no evidence of any significant esophagitis Negative screening colonosco py in 03/2022. However, the prep was somewhat limited and she was put in a colonoscopy recall for 2026 rather than 2031. Surgical History Surgery Date(Month/Year) CCY PINA BTL
--- OUTSIDE RECORDS SUMMARY | 2025-06-25 07:42 | XMS_ITS | Encounter Summary ---
Author Organization [facility] Address [address] [place] [address] Phone Care Team Providers Care Data Modeler Name Role Phone Yoli Townsend MD Primary Care Provider [phone] Encounter Details Date Type Department Care Team (Late Contact Info) Description 11/30/2022 Documentation Only [facility] Dr [address] [place] [phone] Chester Ventura MD [address] [address] [place] [address] Social History Tobacco Use Types [...] Visit [facility] [address] [place] [address] Chester Ventura MD [address] [place] [address] documented as of this encounter Visit Diagnoses Not on filedocumented in this encounter Care Teams Data Modeler Relationship Specialty Start Date End Date Yoli Townsend MD [address] [place], [place] PCP - General 06/09/19 documented as of this encounter
--- OUTSIDE RECORDS SUMMARY | 2025-06-25 07:42 | XMS_ITS | Encounter Summary ---
Author Organization [facility] Address [address] [place] [address] Phone Care Team Providers Care Toe Former Stitchdowns Name Role Phone Yoli Townsend MD Primary Care Provider [phone] Encounter Details Date Type Department Care Team (Late Contact Info) Description 06/12/2023 Documentation Only [facility] Dr [address] [place] [address] Chester Ventura MD [address] [facility] [place] [address] Social History Tobacco Use Types [...] Visit [facility] [address] [address] Chester Ventura MD [address] [facility] [place] [address] documented as of this encounter Visit Diagnoses Not on filedocumented in this encounter Care Teams Toe Former Stitchdowns Relationship Specialty Start Date End Date Yoli Townsend MD [address] [place], [place] PCP - General 06/09/19 documented as of this encounter
--- OUTSIDE RECORDS SUMMARY | 2025-06-25 07:42 | XMS_ITS | Encounter Summary ---
Author Organization [facility] Address [address] [place] [address] Phone Care Team Providers Care Land Classifier Name Role Phone Yoli Townsend MD Primary Care Provider [phone] Encounter Details Date Type Department Care Team (Late Contact Info) Description 06/10/2023 Documentation Only [facility] Dr [address] [place] [address] Chester Ventura MD [address] [facility] [place] [address] Social History Tobacco Use Types [...] Visit [facility] [address] [address] [place] [address] Chester Ventura MD [address] [facility] [place] [address] documented as of this encounter Visit Diagnoses Not on filedocumented in this encounter Care Teams Land Classifier Relationship Specialty Start Date End Date Yoli Townsend MD [address] [place], [place] PCP - General 06/09/19 documented as of this encounter
--- OUTSIDE RECORDS SUMMARY | 2025-06-25 07:42 | XMS_ITS | Encounter Summary ---
Author Organization [facility] Address [address] [place] [address] Phone Care Team Providers Care Safety Coordinator Name Role Phone Yoli Townsend MD Primary Care Provider [phone] Encounter Details Date Type Department Care Team (Late Contact Info) Description 06/12/2023 Documentation Only [facility] [address] [place] [address] Chester Ventura MD [address] [place] [address] [place] [address] Social History Tobacco Use [...] [facility] [address] [place] [address] Chester Ventura MD [address] [place] [address] [place] [address] documented as of this encounter Visit Diagnoses Not on filedocumented in this encounter Care Teams Safety Coordinator Relationship Specialty Start Date End Date Yoli Townsend MD [address] [place], [place] PCP - General 06/09/19 documented as of this encounter
--- OUTSIDE RECORDS SUMMARY | 2025-06-25 07:42 | XMS_ITS | Encounter Summary ---
Author Organization [facility] Address [address] [place] [address] Phone Care Team Providers Care Keg Filler Name Role Phone Yoli Townsend MD Primary Care Provider [phone] Encounter Details Date Type Department Care Team (Late Contact Info) Description 12/04/2022 Documentation Only [facility] [address] [place] [address] Chester Ventura MD [address] [place] [address] [place] [address] Social History Tobacco Use [...] [facility] [address] [place] [address] Chester Ventura MD [address] [place] [address] [place] [address] documented as of this encounter Visit Diagnoses Not on filedocumented in this encounter Care Teams Keg Filler Relationship Specialty Start Date End Date Yoli Townsend MD [address] [place], [place] PCP - General 06/09/19 documented as of this encounter
--- OUTSIDE RECORDS SUMMARY | 2025-06-25 07:42 | XMS_ITS | Encounter Summary ---
Author Organization [facility] Address [address] [place] [address] Phone Care Team Providers Care Spinner Fixer Name Role Phone Yoli Townsend MD Primary Care Provider [phone] Encounter Details Date Type Department Care Team (Late Contact Info) Description 12/04/2022 Documentation Only [facility] [address] [place] [address] Chester Ventura MD [address] [place] [address] [place] [address] Social History Tobacco Use Types [...] [facility] [address] [place] [address] Chester Ventura MD [address] [place] [address] [place] [address] documented as of this encounter Visit Diagnoses Not on filedocumented in this encounter Care Teams Spinner Fixer Relationship Specialty Start Date End Date Yoli Townsend MD [address] [place], [place] PCP - General 06/09/19 documented as of this encounter
--- OUTSIDE RECORDS SUMMARY | 2025-06-25 07:42 | XMS_ITS | Encounter Summary ---
Author Organization [facility] Address [address] [place] [address] Phone Care Team Providers Care Circulation Worker Name Role Phone Yoli Townsend MD Primary Care Provider [phone] Encounter Details Date Type Department Care Team (Late st Contact Info) Description 09/27/2023 Documentation Only [facility] [address] [place] [address] Liliya Pérez [address] [place] [address] Social History Tobacco Use Types [...] [facility] [address] [place] [address] Chester Ventura MD [address] [place] [address] [place] [address] documented as of this encounter Visit Diagnoses Not on filedocumented in this encounter Care Teams Circulation Worker Relationship Specialty Start Date End Date Yoli Townsend MD [address] [place], [place] PCP - General 06/09/19 documented as of this encounter
--- OUTSIDE RECORDS SUMMARY | 2025-06-25 07:42 | XMS_ITS | Encounter Summary ---
Author Organization [facility], Address [address] [place] [address] Phone Care Team Providers Care Shingle Packer Name Role Phone Yoli Townsend MD Primary Care Provider [phone] Reason for Visit * Reason Comments Med Refill Encounter Details Date Type Department Care Team (Late Contact Info) Description 02/17/2020 Refill [facility] [address] [place] [address] Chester Ventura MD [address] [facility] [place] [address] Social History Tobacco Use Types [...] Visit [facility] [place], [address] [place] [address] Chester Ventura MD [address] [facility] [place] [address] documented as of this encounter Visit Diagnoses Not on filedocumented in this encounter Care Teams Shingle Packer Relationship Specialty Start Date End Date Yoli Townsend MD [address] [place] PCP - General 06/09/19 documented as of this encounter
--- OUTSIDE RECORDS SUMMARY | 2025-06-25 07:42 | XMS_ITS | Encounter Summary ---
Author Organization [facility] Address [address] [place] [address] Phone Care Team Providers Care Radial Saw Operator Name Role Phone Yoli Townsend MD Primary Care Provider [phone] Encounter Details Date Type Department Care Team (Late Contact Info) Description 06/18/2022 Documentation Only [facility] [address] [place] [address] Chester Ventura MD [address] [place] [address] [place] [address] Social History Tobacco Use Types [...] Visit [facility] [address] [place] [address] Chester Ventura MD [address] [place] [address] [place] [address] documented as of this encounter Visit Diagnoses Not on filedocumented in this encounter Care Teams Radial Saw Operator Relationship Specialty Start Date End Date Yoli Townsend MD [address] [place], [place] PCP - General 06/09/19 documented as of this encounter
--- OUTSIDE RECORDS SUMMARY | 2025-06-25 07:43 | XMS_ITS | Encounter Summary ---
Author Organization [facility] Address [address] [place] [address] Phone Care Team Providers Care Valet Parker Name Role Phone Yoli Townsend MD Primary Care Provider [phone] Encounter Details Date Type Department Care Team (Late st Contact Info) Description 09/27/2023 Documentation Only [facility] [address] [place] [address] Liliya Pérez [address] [place] [address] Social History Tobacco Use Types [...] [facility] [address] [place] [address] Chester Ventura MD [address] [place] [address] [place] [address] documented as of this encounter Visit Diagnoses Not on filedocumented in this encounter Care Teams Valet Parker Relationship Specialty Start Date End Date Yoli Townsend MD [address] [place], [place] PCP - General 06/09/19 documented as of this encounter
--- OUTSIDE RECORDS SUMMARY | 2025-06-25 07:43 | XMS_ITS | Encounter Summary ---
Author Organization [facility] Address [address] [place] [address] Phone Care Team Providers Care In Flight Refueling Craftsman Name Role Phone Yoli Townsend MD Primary Care Provider [phone] Encounter Details Date Type Department Care Team (Late Contact Info) Description 12/30/2024 Documentation Only [facility] [address] [place] [address] Liliya Pérez [address] [place] [address] Social History Tobacco Use Types [...] [facility] [address] [place] [address] Chester Ventura MD [address] [place] [address] [place] [address] documented as of this encounter Visit Diagnoses Not on filedocumented in this encounter Care Teams In Flight Refueling Craftsman Relationship Specialty Start Date End Date Yoli Townsend MD [address] [place], [place] PCP - General 06/09/19 documented as of this encounter
--- OUTSIDE RECORDS SUMMARY | 2025-06-25 07:43 | XMS_ITS | Encounter Summary ---
Author Organization [facility] Address [address] [facility] 7t [place] [address] Care Team Providers Care Radiologic Technologist Name Role Phone Unavailable Primary Care [...]
--- OUTSIDE RECORDS SUMMARY | 2025-06-25 07:43 | XMS_ITS | Encounter Summary ---
Author Organization [facility] Address [address] [place] [address] Phone Care Team Providers Care Rail Car Repairman Name Role Phone Yoli Townsend MD Primary Care Provider [phone] Encounter Details Date Type Department Care Team (Late st Contact Info) Description 10/07/2023 Documentation Only [facility] [address] [place] [address] Liliya Pérez [address] [place] [address] Social History Tobacco Use Types [...] Services Of [address] [place] [address] Chester Ventura MD [address] [place] [address] [place] [address] documented as of this encounter Visit Diagnoses Not on filedocumented in this encounter Care Teams Rail Car Repairman Relationship Specialty Start Date End Date Yoli Townsend MD [address] [place], [place] PCP - General 06/09/19 documented as of this encounter
--- OUTSIDE RECORDS SUMMARY | 2025-06-25 07:43 | XMS_ITS | Encounter Summary ---
Author Organization [facility] Address [address] [facility] 7t [place] [address] Care Team Providers Care Scale Operator Name Role Phone Unavailable Primary Care [...]
--- OUTSIDE RECORDS SUMMARY | 2025-06-25 07:43 | XMS_ITS | Encounter Summary ---
Author Organization [facility] Address [address] [place] [address] Phone Care Team Providers Care Lamp Shade Joiner Name Role Phone Yoli Townsend MD Primary Care Provider [phone] Encounter Details Date Type Department Care Team (Late Contact Info) Description 02/21/2022 Documentation Only [facility] [address] [place] [place] [address] Chester Ventura MD [address] [place] [address] [place] [address] Social History Tobacco Use Types [...] [facility] [address] [place] [address] Chester Ventura MD [address] [place] [address] [place] [address] documented as of this encounter Visit Diagnoses Not on filedocumented in this encounter Care Teams Lamp Shade Joiner Relationship Specialty Start Date End Date Yoli Townsend MD [address] [place], [place] PCP - General 06/09/19 documented as of this encounter
--- OUTSIDE RECORDS SUMMARY | 2025-06-25 07:43 | XMS_ITS | Encounter Summary ---
Author Organization [facility] Address [address] [place] [address] Phone Care Team Providers Care Audograph Operator Name Role Phone Yoli Townsend MD Primary Care Provider [phone] Encounter Details Date Type Department Care Team (Late st Contact Info) Description 10/08/2023 Documentation Only [facility] [address] [place] [address] Liliya Pérez [address] [place] [address] Social History Tobacco Use Types [...] [facility] [address] [place] [address] Chester Ventura MD [address] [place] [address] [place] [address] documented as of this encounter Visit Diagnoses Not on filedocumented in this encounter Care Teams Audograph Operator Relationship Specialty Start Date End Date Yoli Townsend MD [address] [place], [place] PCP - General 06/09/19 documented as of this encounter
--- OUTSIDE RECORDS SUMMARY | 2025-06-25 07:43 | XMS_ITS | Clinical Summary ---
Author Organization [employer] Address [address] [place] [address] 7t [place] [address] Care Team Providers Care Student Driving Instructor Name Role Phone Unavailable Primary Care Provider [...] Cancer Screening 1990 HPV/Cotest 1990 Mammogram 2000 RSV Patients and Patients Aged 60 years or older (1 - Risk 50-74 years 1-dose series) 2010 Zoster Vaccines (1 of 2) 2010 Pneumococcal Vaccine: 50+ Years (2 of 2 - PCV) 08/13/2012 08/13/2011 DTaP/Tdap/Td Vaccines (2 - T d or Tdap) 02/12/2022 02/13/2012 COVID-19 Vaccine (1 - 2024-2 6 season) 2025 Influenza Vaccine (#1) 2025 9, [...] patient's age to complete this topic Insurance [facility] STANDARD
--- NOTE | 2025-06-25 08:05 | A.OFFVIS_ITS ---
Vital Signs 06/25/25 08:12 Height 5 ft 1 in Weight 192 lb 14.472 oz BMI 36.4 BP 124/80 Blood Pressure Location Lt brachial Position Sitting Pulse 77 Pulse Source Pulse Oximeter Pulse Oximetry (%) 98 Oxygen Delivery Method Room Air Intake Visit Reasons: +ve RF Intake Note: Patient presents for +ve RF follow up. Patient c/o of joint pain all over. Softlines Supervisor Required: Yes Softlines Supervisor Language: Sustainable Systems Analyst Services: Softlines Supervisor Present Softlines Supervisor Name: Patricia [phone] Information Interpreted: non-clinical & clinical Allergies atorvastatin Allergy (Intermediate, Verified 06/25/25 08:11) elevated liver enzymes, elevated enzymes duloxetine (Cymbalta) Allergy (Intermediate, Verified 06/25/25 08:11) headache dapagliflozin (From [facility]) Adverse Reaction (Intermediate, Verified 06/25/25 08:11) Dizziness Medication List - Last Reconciled 06/25/25 by Liz Bowers MD alclometasone 0.05% appl topical BID PRN azelastine-fluticasone 137-50 mcg/spray 1 spray intranasal BID blood sugar diagnostic (FreeStyle Lite Strips) 3 times a day blood-glucose meter (FreeStyle Lite Meter kit) As directed 3x/day calcium carbonate 500 mg PO BID 30 days cholecalciferol (vitamin D3) 25 mcg PO DAILY ciprofloxacin HCl 250 mg PO BID 10 days diclofenac sodium 1% 2 grams topical BID PRN empagliflozin (Jardiance) 25 mg PO DAILY 90 days evolocumab (Repatha Pushtronex) 420 mg (3.5 mL) subcut Q4W 90 days evolocumab (Repatha SureClick) 140 mg subcut Q2W 90 days ezetimibe 10 mg PO DAILY 90 days gabapentin 300 mg PO TID 90 days hydroxyzine HCl 25 mg PO BID PRN 7 days ketoconazole 2% Apply 10 mL to wet scalp, lather, leave on 5 minutes, and rinse. Apply once a day for 8 weeks. liraglutide (Victoza 3-Demond) 0.6 mg (0.1 mL) subcut DAILY 4 weeks losartan 25 mg PO DAILY 90 days mecobalamin (vitamin B12) 1,000 mcg PO DAILY 90 days metformin 1,000 mg (2 x 500 mg) PO BID 90 days methocarbamol 500 - 1,000 mg (1 - 2 x 500 mg) PO BEDTIME omeprazole 20 mg PO QAM PRN 90 days oxycodone-acetaminophen 5-325 mg (Percocet) 1 tab PO Q6-8H PRN pen needle, diabetic (Novofine 32) As directed pyridoxine (vitamin B6) 100 mg PO DAILY 90 days repaglinide 1- 2 tabs prior to dinner PO daily; administer within 15 minutes of a meal or snack 30 days rosuvastatin 40 mg PO DAILY tamsulosin (Flomax) 0.4 mg PO DAILY tramadol 50 mg PO BID PRN 30 days HPI Comments Details: Patient is a 65-year-old female with major depression, GERD, hyperlipidemia, diabetes, hypertension, scoliosis of the thoracolumbar spine complicated by spondylosis, polyarticular osteoarthritis and fibromyalgia here today for follow up Interval History: Patient last seen 03/19/[address] Miller - Not on any rheum meds - Being monitored periodically by Rheumatology for a positive rheumatoid factor. - She states that her pains are worse. - She has pain in her neck, hands, knees, ankles, she states that her left leg [place], especially at night. - She states that she was evaluated by pain management and referred to PT. - She completed PT and she did not get a follow-up appointment from pain management. - No evidence of inflammatory arthritis, recommended prn follow up Today - Not on any rheum meds - Complaining of widespread body pain as well as numbness and tingling in her legs - Diagnosed with diabetic neuropathy by primary - Not taking gabapentin because it does not help - No side effects noted from the medication Rheumatologic History: OA and fibromyalgia Current Rheumatology Medication(s): [facility] Medical History Seborrheic dermatitis Diverticulitis History of kidney stones Abdominal pain Tachycardia Renal cyst Chronic GERD Polyarthralgia Left shoulder pain Right foot pain Renal calculus, bilateral Mild major depression, single episode Morbid obesity with BMI of 40.0-44.9, adult Diabetes type 2, uncontrolled Iron deficiency anemia Osteopenia Left foot pain Postmenopausal Vitamin D deficiency Elevated LFTs Thyroid nodule Type 2 diabetes mellitus with other diabetic kidney complication Proteinuria Hyperlipidemia LDL goal <100 Obesity due to excess calories Essential hypertension Pure hypercholesterolemia Venous thrombosis of upper extremity Diabetes mellitus, type II Spondylosis, cervical Fatty liver Metatarsalgia Arthropathy of knee Surgical History H/O colonoscopy History of extraction of renal calculus History of removal of cyst History of shoulder surgery History of cholecystectomy History of total abdominal hysterectomy and bilateral salpingo-oophorectomy Status post rotator cuff repair Family History Father Stomach cancer Liver cancer Mother Myocardial infarct Diabetes CVD (cardiovascular disease) Sister Cervical cancer Brother Murder Social History Household Members: Children Housing: House Alcohol intake: never Patient Tobacco Use Status: Never used Tobacco e-Cigarette/Vaping Use: Never Used Second Hand Smoke Exposure: No service: No Current occupational status: disabled Current occupation: right handed Cognitive needs: Yes (Pt use a cane) Hearing needs: No Vision needs: No Review of Systems Narrative Review of Systems Constitutional: Denies fever, chills, weight loss ENT: Denies vision changes, eye pain or eye redness, dental caries, dry mouth GI: Denies nausea, vomiting, diarrhea, abdominal pain, change in BM Pulm: Denies SOB, RUSSELL, hemoptysis, wheezing Cards: Denies chest pain, palpitations Skin: Denies Raynaud's, rash, nail changes, photosensitivity, TAPER MACHINE: Denies headaches, weakness, paresthesias, recurrent falls MSK: as per HPI All other systems reviewed and are unremarkable except noted above Physical Exam Exam Exam: Vital signs reviewed Physical Examination CONSTITUITIONAL Patient alert and cooperative. Well appearing and in no apparent painful distress MSK Hands * Right Hand: Able to make a fist. No swelling or tenderness to palpation of the MCPs, PIPs or DIPs. * Left Hand: Able to make a fist. No swelling or tenderness to palpation of the MCPs, PIPs or DIPs. * Herbedens nodes noted bilaterally Wrists * Right Wrist: Full ROM to flexion and extension. No swelling or TTP * Left Wrist: Full ROM to flexion and extension. No swelling or TTP Elbows * Right Elbow: No swelling or TTP. No TTP of the medial epicondyle. No TTP of the lateral epicondyle * Left Elbow: No swelling or TTP. No TTP of the medial epicondyle. No TTP of the lateral epicondyle Shoulders * Right shoulder: Full ROM. No swelling noted. No TTP of the AC joint. No TTP of the subacromial bursa. No TTP of the posterior shoulder * Left shoulder: Full ROM. No swelling noted. No TTP of the AC joint. No TTP of the subacromial bursa. No TTP of the posterior shoulder Hip bursa: Tenderness to palpation bilaterally Knees * Right knee: Good ROM. No swelling noted. No TTP of the knee joint line. TTP of pes anserine bursa * Left knee: Good ROM. No swelling noted. No TTP of the knee joint line. TTP of pes anserine bursa. Ankles * Right ankle: Good ankle dorsiflexion and plantar flexion. No swelling. No TTP of the ankle joint * Left ankle: Good ankle dorsiflexion and plantar flexion. No swelling. No TTP of the ankle joint Feet * Right foot: Negative squeeze test * Left foot: Negative squeeze test Tender points? * Tenderness to palpation of the bilateral trapezius, supraspinatus, anterior costochondral junctions, bilateral suboccipital muscle insertions SKIN No rashes Vital Signs: Last Vital Signs Pulse 77 06/25/25 08:12 BP 124/80 06/25/25 08:12 Pulse Ox 98 06/25/25 08:12 Oxygen Delivery Method Room Air 06/25/25 08:12 BMI result Body Mass Index 36.4 Results Reviewed Results Reviewed: Laboratory Tests 12/23/24 05/17/25 09:19 08:12 WBC 6.8 RBC 5.15 Hgb 15.1 Hct 44.9 Plt Count 196 Sodium 143 Potassium 3.8 Chloride 107 Carbon Dioxide 28 BUN 12 Creatinine 0.74 AST 27 ALT 26 25-OH Vitamin D Total 33.5 DEXA 05/2025 FINDINGS: The bone mineral density of the lumbar spine is 0.984 g/cm2, corresponding to a T-score of -1.6, and a Z-score of -0.8. This is indicative of osteopenia. This represents a BMD change of 1.4% compared to the prior exam. This is not statistically significant. The bone mineral density of the left total hip is 1.083 g/cm2, corresponding to a T-score of 0.6, and a Z-score of 1.3. This is indicative of normal bone mineral density. This represents a BMD change of -6.6% compared to the prior exam. This is statistically significant. The bone mineral density of the left femoral neck is 0.859 g/cm2, corresponding to a T-score of -1.3, and a Z-score of -0.3. This is indicative of osteopenia. This represents a BMD change of -7.2% compared to the prior exam. FRACTURE RISK: The FRAX index suggests a ten year probability of major osteoporotic fracture of 7.2%, and of hip fracture 0.6%. Assessment & Plan Assessment & Plan (1) Fibromyalgia: Code(s): M79.7 - Fibromyalgia Category: Medical Plan: #Fibromyalgia Patient is a 65-year-old female with polyarticular osteoarthritis and fibromyalgia here today for follow up. Complaining of widespread pain Will trial medications Had a long conversation with the patient explaining to her that there is no treatment or cure for fibromyalgia or osteoporosis and that the natural history of the diseases is continued chronic pain. We will try to see if we can help improve her quality of life for these medications but there is no guarantee unfortunately. Plan - Increase gabapentin 300mg bid - tid - Methocarbamol 500mg - 1000mg nightly - RTC 4 months Plan This is my first visit with this patient. I spent 30 minutes reviewing the record and labs, taking a history, examining the patient, discussing the t reatment plan, ordering diagnostic work up and documenting in the medical record Medications: New methocarbamol 500 - 1,000 mg (1 - 2 x 500 mg) PO BEDTIME 45 tabs 5RF M79.7 - Fibromyalgia Changed From gabapentin 100 mg PO BEDTIME 30 days 30 caps 0RF M79.7 - Fibromyalgia To gabapentin 300 mg PO TID 270 caps 1RF 90 days M79.7 - Fibromyalgia Discontinued tramadol Discontinued Reason: Doctor's Order 50 mg PO BID PRN 15 tabs 0RF pain Coding Level of Care Code Est Pt Level 3 (29597) Complex visit Add On G2211 Diagnoses Fibromyalgia M79.7
[2025-06-25 08:12] VITALS: BP 124/80; PULSE 77; O2SAT 98; BMI 36.4
== END 2025-06-25 08:49 | disposition home or self-care (01) ==
PROVIDERS: PCP Internal Medicine; Visit Provider Student in an Organized Health Care Education/Training Program
DX: M79.7 Fibromyalgia (principal)
CPT/HCPCS: 99213; G2211

== ENCOUNTER → 2025-06-25 07:39 | Outpatient (BNVA) | payer MEDICAID, SELFPAY | PROVIDERS: PCP Internal Medicine; Visit Provider Student in an Organized Health Care Education/Training Program | DX: M79.7 Fibromyalgia (principal) | CPT/HCPCS: 99212 ==

== ENCOUNTER 2025-06-29 09:26 | Outpatient (AMB) | payer MEDICARE, MEDICAID, SELFPAY ==
--- NOTE | 2025-06-29 09:30 | A.OFFVIS_ITS ---
Vital Signs 3 06/29/25 09:42 Height 5 ft 1 in Weight 195 lb 6 oz BMI 36.9 BP 136/79 Blood Pressure Location Lt brachial Position Sitting Pulse 82 Intake Visit Reasons: cyst between breasts Intake Note: Patient is seen in office for a cyst between the breast. Pt c/o: had a lump on the chest and started to apply cream and went down, however has a few skin tags that bother her and are itchy and would like to discuss removal L.OV: 09/02/23 Engineering Director Required: Yes Engineering Director Services: Engineering Director Present Engineering Director Name: Ammy HAMILTON Information Interpreted: non-clinical & clinical Accompanied by: Self / Same As Patient Allergies atorvastatin Allergy (Intermediate, Verified 06/29/25 09:31) elevated liver enzymes, elevated enzymes duloxetine (Cymbalta) Allergy (Intermediate, Verified 06/29/25 09:31) headache dapagliflozin (From [facility]) Adverse Reaction (Intermediate, Verified 06/29/25 09:31) Dizziness Medication List - Last Reconciled 06/29/25 by Marc Lindquist MD alclometasone 0.05% appl topical BID PRN azelastine-fluticasone 137-50 mcg/spray 1 spray intranasal BID blood sugar diagnostic (FreeStyle Lite Strips) 3 times a day blood-glucose meter (FreeStyle Lite Meter kit) As directed 3x/day calcium carbonate 500 mg PO BID 30 days cholecalciferol (vitamin D3) 25 mcg PO DAILY ciprofloxacin HCl 250 mg PO BID 10 days diclofenac sodium 1% 2 grams topical BID PRN empagliflozin (Jardiance) 25 mg PO DAILY 90 days evolocumab (Repatha Pushtronex) 420 mg (3.5 mL) subcut Q4W 90 days evolocumab (Repatha SureClick) 140 mg subcut Q2W 90 days ezetimibe 10 mg PO DAILY 90 days gabapentin 300 mg PO TID 90 days hydroxyzine HCl 25 mg PO BID PRN 7 days ketoconazole 2% Apply 10 mL to wet scalp, lather, leave on 5 minutes, and rinse. Apply once a day for 8 weeks. losartan 25 mg PO DAILY 90 days mecobalamin (vitamin B12) 1,000 mcg PO DAILY 90 days metformin 1,000 mg (2 x 500 mg) PO BID 90 days methocarbamol 500 - 1,000 mg (1 - 2 x 500 mg) PO BEDTIME omeprazole 20 mg PO QAM PRN 90 days pen needle, diabetic (Novofine 32) As directed pyridoxine (vitamin B6) 100 mg PO DAILY 90 days repaglinide 1- 2 tabs prior to dinner PO daily; administer within 15 minutes of a meal or snack 30 days rosuvastatin 40 mg PO DAILY tamsulosin (Flomax) 0.4 mg PO DAILY HPI Comments Details: 65-year-old female patient returning for examination of several new skin lesions. She noticed a lump between the 2 breasts over the sternum last week and was quite concerned about the size of the lesion. She had applied an antibiotic cream in the lesion has subsequently reduced in size and is no longer palpable. She also reports multiple skin tags located in her posterior neck which gets irritated from her necklace and clothing. She occasionally has bleeding from the skin lesions in his requesting excision. [facility] Medical History Seborrheic dermatitis Diverticulitis History of kidney stones Abdominal pain Tachycardia Renal cyst Chronic GERD Polyarthralgia Left shoulder pain Right foot pain Renal calculus, bilateral Mild major depression, single episode Morbid obesity with BMI of 40.0-44.9, adult Diabetes type 2, uncontrolled Iron deficiency anemia Osteopenia Left foot pain Postmenopausal Vitamin D deficiency Elevated LFTs Thyroid nodule Type 2 diabetes mellitus with other diabetic kidney complication Proteinuria Hyperlipidemia LDL goal <100 Obesity due to excess calories Essential hypertension Pure hypercholesterolemia Venous thrombosis of upper extremity Diabetes mellitus, type II Spondylosis, cervical Fatty liver Metatarsalgia Arthropathy of knee Surgical History H/O colonoscopy History of extraction of renal calculus History of removal of cyst History of shoulder surgery History of cholecystectomy History of total abdominal hysterectomy and bilateral salpingo-oophorectomy Status post rotator cuff repair Family History Father Stomach cancer Liver cancer Mother Myocardial infarct Diabetes CVD (cardiovascular disease) Sister Cervical cancer Brother Murder Social History Household Members: Children Housing: House Alcohol intake: never Patient Tobacco Use Status: Never used Tobacco e-Cigarette/Vaping Use: Never Used Second Hand Smoke Exposure: No service: No Current occupational status: disabled Current occupation: right handed Cognitive needs: Yes (Pt use a cane) Hearing needs: No Vision needs: No Review of Systems Const All systems reviewed & are unremarkable except as noted in HPI and below Physical Exam Const General: cooperative, comfortable and well developed Nutritional Appearance: well nourished Orientation/consciousness: patient oriented x3 Neck Other: Multiple tiny skin tags located in the posterior neck extending to the lateral neck bilaterally. Lesions measured approximately 2 mm each times 15. Neck: Yes normal visual inspection Neck images: 2 1. Site of multiple skin tags times 15 at lower neck line possibly related to the patient's necklace. Chest Other: Tiny sebaceous cyst in mid chest with no evidence of infection, nontender to palpation. Chest/axillae images: 2 1. Site of sebaceous cyst, 3 mm in diameter. Resp Effort & Inspection: normal respiratory effort, no cough, no respiratory distress and no stridor Cardio Jugular venous distension: no JVD Skin Other: See neck above General skin exam: dry skin Rashes: no rashes Neuro General: patient oriented x3 and no focal motor deficits Extrem General: Yes full ROM and Yes no clubbing, cyanosis or edema Psych Appearance: grossly normal Office Procedures Skin Tag Removal Details: Preoperative diagnosis: Skin tag posterior neck times 15 Postoperative diagnosis: Same Procedure: Excision of skin tag posterior neck times 15 Surgeon: Marc Lindquist MD Vice President For Philanthropy: None Anesthesia: None Indications for procedure: Irritation from multiple skin tags posterior neck Operative findings: Multiple skin tags measuring 2 mm in diameter Specimen: Multiple skin tags (15). Estimated blood loss: None Complications: None Procedure details: Patient was placed in a sitting position. She confirmed the site of skin tags in the posterior neck. After assuring informed consent, the skin was prepped with Betadine and draped in a sterile fashion. No local was needed. Lesions were grasped with a hemostat and excised using a sharp scissors. A total of 15 skin lesions (skin tags) were removed. The patient tolerated the procedure well and was discharged in stable condition. Assessment & Plan Assessment & Plan (1) Skin tag: Code(s): L91.8 - Other hypertrophic disorders of the skin Category: Medical (2) Sebaceous cyst: Code(s): L72.3 - Sebaceous cyst Category: Medical Plan Patient presents with a resolving sebaceous cyst which we will continue to observe. She has multiple skin tags which is causing irritation due to her clothing and necklace. Patient has requested excision which was performed today. She tolerated this well. She should follow up as needed. Coding Level of Care Code Est Pt Level 3 (90403) Diagnoses Skin tag L91.8 Sebaceous cyst L72.3
[2025-06-29 09:42] VITALS: BP 136/79; PULSE 82; BMI 36.9
--- OUTSIDE RECORDS SUMMARY | 2025-06-29 10:49 | XMS_ITS | Encounter Summary ---
Author Organization [facility] Address [address] [place] [address] Phone Care Team Providers Care Solder Leveler Printed Circuit Boards Name Role Phone Yoli Townsend MD Primary Care Provider [phone] Encounter Details Date Type Department Care Team (Late Contact Info) Description 06/18/2022 Documentation Only [facility] [address] [place] [address] Chester Ventura MD [address] [place] [address] [place] [address] Social History Tobacco Use Types [...] [facility] [address] [place] [address] Chester Ventura MD [address] [place] [address] [place] [address] documented as of this encounter Visit Diagnoses Not on filedocumented in this encounter Care Teams Solder Leveler Printed Circuit Boards Relationship Specialty Start Date End Date Yoli Townsend MD [address] [place], [place] PCP - General 06/09/19 documented as of this encounter
--- OUTSIDE RECORDS SUMMARY | 2025-06-29 10:49 | XMS_ITS | Encounter Summary ---
Author Organization [facility], Address [address] [place] [address] Phone Care Team Providers Care Sweetbread Trimmer Name Role Phone Yoli Townsend MD Primary Care Provider [phone] Reason for Visit * Reason Comments Med Refill Encounter Details Date Type Department Care Team (Late Contact Info) Description 02/17/2020 Refill [facility] [address] [place] [address] Chester Ventura MD [address] [facility] [place] [address] Social History Tobacco Use Types [...] Visit [facility] [place], [address] [place] [address] Chester Ventura MD [address] [facility] [place] [address] documented as of this encounter Visit Diagnoses Not on filedocumented in this encounter Care Teams Sweetbread Trimmer Relationship Specialty Start Date End Date Yoli Townsend MD [address] [place] PCP - General 06/09/19 documented as of this encounter
--- OUTSIDE RECORDS SUMMARY | 2025-06-29 10:49 | XMS_ITS | Encounter Summary ---
Author Organization [employer] [facility] Address [address] [place] [address] Care Team Providers Care Shield Cleaner Name Role Phone Unavailable Primary Care Provider [...]
--- OUTSIDE RECORDS SUMMARY | 2025-06-29 10:49 | XMS_ITS | Encounter Summary ---
Author Organization [facility] Address [address] [place] [address] Phone Care Team Providers Care Vice Principal Name Role Phone Yoli Townsend MD Primary Care Provider [phone] Encounter Details Date Type Department Care Team (Late Contact Info) Description 06/01/2022 Documentation Only [facility] [address] [place] [address] Chester Ventura MD [address] [place] [address] [place] [address] Social History Tobacco Use Types [...] [facility] [address] [place] [address] Chester Ventura MD [address] [place] [address] [place] [address] documented as of this encounter Visit Diagnoses Not on filedocumented in this encounter Care Teams Vice Principal Relationship Specialty Start Date End Date Yoli Townsend MD [address] [place], [place] PCP - General 06/09/19 documented as of this encounter
--- OUTSIDE RECORDS SUMMARY | 2025-06-29 10:49 | XMS_ITS | Encounter Summary ---
Author Organization [facility] Address [address] [place] [address] Phone Care Team Providers Care Maintenance Journeyman Name Role Phone Yoli Townsend MD Primary Care Provider [phone] Encounter Details Date Type Department Care Team (Late Contact Info) Description 02/21/2022 Documentation Only [facility] [address] [place] [address] Chester Ventura MD [address] [place] [address] [place] [address] Social History Tobacco Use Types [...] [facility] [address] [place] [address] Chester Ventura MD [address] [place] [address] [place] [address] documented as of this encounter Visit Diagnoses Not on filedocumented in this encounter Care Teams Maintenance Journeyman Relationship Specialty Start Date End Date Yoli Townsend MD [address] [place], [place] PCP - General 06/09/19 documented as of this encounter
--- OUTSIDE RECORDS SUMMARY | 2025-06-29 10:49 | XMS_ITS | Encounter Summary ---
Author Organization [facility] Address [address] [place] [address] Phone Care Team Providers Care Finance Teacher Name Role Phone Yoli Townsend MD Primary Care Provider [phone] Encounter Details Date Type Department Care Team (Late st Contact Info) Description 10/08/2023 Documentation Only [facility] [address] [place] [address] Liliya Pérez [address] [place] [address] Social History Tobacco Use Types [...] [facility] [address] [place] [address] Chester Ventura MD [address] [place] [address] [place] [address] documented as of this encounter Visit Diagnoses Not on filedocumented in this encounter Care Teams Finance Teacher Relationship Specialty Start Date End Date Yoli Townsend MD [address] [place], [place] PCP - General 06/09/19 documented as of this encounter
--- OUTSIDE RECORDS SUMMARY | 2025-06-29 10:49 | XMS_ITS | Clinical Summary ---
Author Organization [employer] Address [address] [place] [address] [address] [place] [address] Care Team Providers Care Senior Analytical Chemist Name Role Phone Unavailable Primary Care Provider [...] patient's age to complete this topic Insurance [facility] STANDARD
--- OUTSIDE RECORDS SUMMARY | 2025-06-29 10:49 | XMS_ITS | Encounter Summary ---
Author Organization [facility] Address [address] [place] [address] Phone Care Team Providers Care Conical Mixer Name Role Phone Yoli Townsend MD Primary Care Provider [phone] Encounter Details Date Type Department Care Team (Late st Contact Info) Description 10/07/2023 Documentation Only [facility] [address] [place] [address] Liliya Pérez [address] [place] [address] Social History Tobacco Use Types [...] [facility] [address] [place] [place] [address] Chester Ventura MD [address] [place] [address] [place] [address] documented as of this encounter Visit Diagnoses Not on filedocumented in this encounter Care Teams Conical Mixer Relationship Specialty Start Date End Date Yoli Townsend MD [address] [place], [place] PCP - General 06/09/19 documented as of this encounter
--- OUTSIDE RECORDS SUMMARY | 2025-06-29 10:49 | XMS_ITS | Encounter Summary ---
Author Organization [facility] Address [address] [place] [address] Phone Care Team Providers Care Shearing Machine Feeder Name Role Phone Yoli Townsend MD Primary Care Provider [phone] Encounter Details Date Type Department Care Team (Late Contact Info) Description 06/12/2023 Documentation Only [facility] Dr [address] [place] [phone] Chester Ventura MD [address] [place] [address] Social History Tobacco Use Types [...] Visit [facility] [address] [facility] [place] [address] Chester Ventura MD [address] [place] [address] documented as of this encounter Visit Diagnoses Not on filedocumented in this encounter Care Teams Shearing Machine Feeder Relationship Specialty Start Date End Date Yoli Townsend MD [address] [place], [place] PCP - General 06/09/19 documented as of this encounter
--- OUTSIDE RECORDS SUMMARY | 2025-06-29 10:49 | XMS_ITS | Clinical Summary ---
Author Organization [facility] [place], Address [address] [place] [address] [place] [address] Phone Care Team Providers Care Chicken Tender Name Role Phone Yoli Townsend MD Primary Care Provider [phone] Allergies Active Allergy Reactions Criticality Noted Date [...] 0 Active ergocalciferol (VITAMIN D2) 1.25 MG (13241 UT) capsule TOME 1 CAPSULA POR VIA [...] Visit [facility] [place], [address] [place] [address] Chester Ventura MD Renal disorder due to [...] Visit [facility] [place], [address] [place] [address] Chester Ventura MD [address] [facility] [place] [address] Health Maintenance Due Date Last [...] PM EDT) Hemoglobin A1C 8.1(H) (4-6) % [place] [id number] Comment: HEMOGLOBIN A1C(%) GLUCOSE CONTROL INDEX <6% EXCELLENT 6-7% VERY GOOD 7-8% GOOD 8-10% FAIR >10% POOR Hemoglobin (Hb) A1c testing is performed by Lary Roselyn-quant immunoassay. Any cause of shortened erythrocyte survival will reduce exposure of erythrocytes to glucose with a consequent decrease in Hb A1c (%). Testing performed or reported by ~[facility], ~a Service of [facility], ~[address] [place] [address]~ 02/09/2019 3:56 PM EDT us Chester Ventura MD LAB BLOOD ORDERABLES Final Resul t [place] [id number] from Last 3 Months or Most Recently Relevant to Health Maintenance [place] Care Teams Chicken Tender Relationship Specialty Start Date End Date Yoli Townsend MD [address] [place] [address] PCP - General 06/09/19
--- OUTSIDE RECORDS SUMMARY | 2025-06-29 10:49 | XMS_ITS | Encounter Summary ---
Author Organization [facility] Address [address] [place] [address] Phone Care Team Providers Care Airport Manager Name Role Phone Yoli Townsend MD Primary Care Provider [phone] Encounter Details Date Type Department Care Team (Late Contact Info) Description 06/12/2023 Documentation Only [facility] [address] [place] [address] Chester Ventura MD [address] [place] [address] [place] [address] Social History Tobacco Use Types [...] [facility] [address] [place] [address] Chester Ventura MD [address] [place] [address] [place] [address] documented as of this encounter Visit Diagnoses Not on filedocumented in this encounter Care Teams Airport Manager Relationship Specialty Start Date End Date Yoli Townsend MD [address] [place], [place] PCP - General 06/09/19 documented as of this encounter
--- OUTSIDE RECORDS SUMMARY | 2025-06-29 10:49 | XMS_ITS | Encounter Summary ---
Author Organization [facility] Address [address] [place] [address] Phone Care Team Providers Care Home [employer] Rep Name Role Phone Yoli Townsend MD Primary Care Provider [phone] Encounter Details Date Type Department Care Team (Late Contact Info) Description 12/04/2022 Documentation Only [facility] [address] [place] [address] Chester Ventura MD [address] [place] [address] [place] [address] Social History Tobacco Use Types [...] [facility] [address] [place] [address] Chester Ventura MD [address] [place] [address] [place] [address] documented as of this encounter Visit Diagnoses Not on filedocumented in this encounter Care Teams Home [employer] Rep Relationship Specialty Start Date End Date Yoli Townsend MD [address] [place], [place] PCP - General 06/09/19 documented as of this encounter
--- OUTSIDE RECORDS SUMMARY | 2025-06-29 10:49 | XMS_ITS | Encounter Summary ---
Author Organization [facility] Address [address] [place] [address] Phone Care Team Providers Care Livestock Yard Attendant Name Role Phone Yoli Townsend MD Primary Care Provider [phone] Encounter Details Date Type Department Care Team (Late Contact Info) Description 11/30/2022 Documentation Only [facility] [address] [place] [phone] Chester Ventura MD [address] [facility] [address] [place] [address] Social History Tobacco Use Types [...] Visit [facility] [address] [place] [address] Chester Ventura MD [address] [facility] [address] [place] [address] documented as of this encounter Visit Diagnoses Not on filedocumented in this encounter Care Teams Livestock Yard Attendant Relationship Specialty Start Date End Date Yoli Townsend MD [address] [place], [place] PCP - General 06/09/19 documented as of this encounter
--- OUTSIDE RECORDS SUMMARY | 2025-06-29 10:49 | XMS_ITS | Encounter Summary ---
Author Organization [facility] Address [address] [place] [address] Phone Care Team Providers Care Remarketing Rep Name Role Phone Yoli Townsend MD Primary Care Provider [phone] Encounter Details Date Type Department Care Team (Late Contact Info) Description 06/10/2023 Documentation Only [facility] Dr [address] [place] [phone] Chester Ventura MD [address] [facility] [place] [address] Social History Tobacco Use Types [...] Visit [facility] [address] [place] [address] Chester Ventura MD [address] [facility] [place] [address] documented as of this encounter Visit Diagnoses Not on filedocumented in this encounter Care Teams Remarketing Rep Relationship Specialty Start Date End Date Yoli Townsend MD [address] [place], [place] PCP - General 06/09/19 documented as of this encounter
--- OUTSIDE RECORDS SUMMARY | 2025-06-29 10:49 | XMS_ITS | Encounter Summary ---
Author Organization [facility] Address [address] [facility] [address] [place] [address] Care Team Providers Care Duplicator Punch Set Up Operator Name Role Phone Unavailable Primary Care [...]
--- OUTSIDE RECORDS SUMMARY | 2025-06-29 10:49 | XMS_ITS | Encounter Summary ---
Author Organization [facility] Address [address] [place] [address] Phone Care Team Providers Care Long Wall Mining Machine Tender Name Role Phone Yoli Townsend MD Primary Care Provider [phone] Encounter Details Date Type Department Care Team (Late Contact Info) Description 12/04/2022 Documentation Only [facility] [address] [place] [address] Chester Ventura MD [address] [place] [address] [place] [address] Social History Tobacco Use Types [...] Visit [facility] [address] [place] [address] Chester Ventura MD [address] [place] [address] [place] [address] documented as of this encounter Visit Diagnoses Not on filedocumented in this encounter Care Teams Long Wall Mining Machine Tender Relationship Specialty Start Date End Date Yoli Townsend MD [address] [place], [place] PCP - General 06/09/19 documented as of this encounter
--- OUTSIDE RECORDS SUMMARY | 2025-06-29 10:49 | XMS_ITS | Encounter Summary ---
Author Organization [facility] Address [address] [place] [address] Phone Care Team Providers Care Ring Conductor Name Role Phone Yoli Townsend MD Primary Care Provider [phone] Encounter Details Date Type Department Care Team (Late st Contact Info) Description 09/27/2023 Documentation Only [facility] [address] [place] [address] Liliya Pérez [address] [place] [address] Social History Tobacco Use Types [...] [facility] [address] [place] [address] Chester Ventura MD [address] [place] [address] [place] [address] documented as of this encounter Visit Diagnoses Not on filedocumented in this encounter Care Teams Ring Conductor Relationship Specialty Start Date End Date Yoli Townsend MD [address] [place], [place] PCP - General 06/09/19 documented as of this encounter
--- OUTSIDE RECORDS SUMMARY | 2025-06-29 10:49 | XMS_ITS | Encounter Summary ---
Author Organization [facility] Address [address] [place] [address] Phone Care Team Providers Care Potline Monitor Name Role Phone Yoli Townsend MD Primary Care Provider [phone] Encounter Details Date Type Department Care Team (Late st Contact Info) Description 09/27/2023 Documentation Only [facility] [address] [place] [address] Liliya Pérez [address] [place] [address] Social History Tobacco Use Types [...] [facility] [address] [place] [address] Chester Ventura MD [address] [place] [address] [place] [address] documented as of this encounter Visit Diagnoses Not on filedocumented in this encounter Care Teams Potline Monitor Relationship Specialty Start Date End Date Yoli Townsend MD [address] [place], [place] PCP - General 06/09/19 documented as of this encounter
--- OUTSIDE RECORDS SUMMARY | 2025-06-29 10:49 | XMS_ITS | Encounter Summary ---
Author Organization [facility] Address [address] [place] [address] Phone Care Team Providers Care Leakage Tester Name Role Phone Yoli Townsend MD Primary Care Provider [phone] Encounter Details Date Type Department Care Team (Late Contact Info) Description 06/06/2022 Documentation Only [facility] [address] [place] [address] Chester Ventura MD [address] [place] [address] [place] [address] Social History Tobacco Use Types [...] [facility] [address] [place] [address] Chester Ventura MD [address] [place] [address] [place] [address] documented as of this encounter Visit Diagnoses Not on filedocumented in this encounter Care Teams Leakage Tester Relationship Specialty Start Date End Date Yoli Townsend MD [address] [place], [place] PCP - General 06/09/19 documented as of this encounter
--- OUTSIDE RECORDS SUMMARY | 2025-06-29 10:49 | XMS_ITS | Encounter Summary ---
Author Organization [facility], Address [address] [place] [address] Phone Care Team Providers Care Laboratory Operations Coordinator Name Role Phone Yoli Townsend MD Primary Care Provider [phone] Reason for Visit * Reason Comments Med Refill Encounter Details Date Type Department Care Team (Late Contact Info) Description 02/18/2020 Refill [facility] [address] [place] [address] Chester Ventura MD [address] [facility] [place] [address] Social History Tobacco Use Types [...] Visit [facility] [place], [address] [place] [address] Chester Ventura MD [address] [facility] [place] [address] documented as of this encounter Visit Diagnoses Not on filedocumented in this encounter Care Teams Laboratory Operations Coordinator Relationship Specialty Start Date End Date Yoli Townsend MD [address] [place] PCP - General 06/09/19 documented as of this encounter
--- OUTSIDE RECORDS SUMMARY | 2025-06-29 10:50 | XMS_ITS | Encounter Summary ---
Author Organization [facility] Address [address] [place] [address] Phone Care Team Providers Care Green Chain Offbearer Name Role Phone Yoli Townsend MD Primary Care Provider [phone] Encounter Details Date Type Department Care Team (Late Contact Info) Description 12/30/2024 Documentation Only [facility] [address] [place] [address] Liliya Pérez [address] [place] [address] Social History Tobacco Use Types [...] [facility] [address] [place] [address] Chester Ventura MD [address] [place] [address] [place] [address] documented as of this encounter Visit Diagnoses Not on filedocumented in this encounter Care Teams Green Chain Offbearer Relationship Specialty Start Date End Date Yoli Townsend MD [address] [place], [place] PCP - General 06/09/19 documented as of this encounter
== END 2025-06-29 09:55 | disposition home or self-care (01) ==
PROVIDERS: PCP Internal Medicine; Visit Provider Surgery
DX: L91.8 Other hypertrophic disorders of the skin (principal); L72.3 Sebaceous cyst
CPT/HCPCS: 99213

== ENCOUNTER 2025-06-29 09:26 | Outpatient (REF) | payer MEDICAID, SELFPAY ==
--- OUTSIDE RECORDS SUMMARY | 2025-05-27 06:00 | XMS_ITS ---
Author Organization [facility] Address [address] [place] [address] Care Team Providers Care Nba Player Name Role Phone Yoli Townsend Primary Care Provider Unavailab Kostas Murguia Unavailable [phone] REASON FOR VISIT liver fibrosis Encounters Encounter Location Date Provider Diagnosis [facility] [address] [place] [address] 05/27/2025 Kostas Earzo Plan Of Treatment Next Appt Details Provider Name:Kostas Erazo , 06/16/2026 09:20:00 AM, [address], [address], [place], [address], Progress Notes * HEATHER COMBS EDOB: (65 yo F)Acc No.[id number]:05/27/2025 Progress Notes Patient: Pedro Pablo CHEUNG MISSY SHAHEEN Provider: Etelvina Erazo MD :1960 A ge:65 Y S ex:Female Date:05/27/2025 Address:[address] [place] [address] [id number] Pcp:Yoli Padilla Subjective: * Chief Complaints: * L iver fibrosis * The named appointment provid er may or may not be the originator of this progress note, and it is not deemed complete until electronically signed by the appointment provider. Sign off status: Pending * Provider: Etelvina Erazo MD Date: Generated for Printi ng/Faxing/eTransmitting on: 08/29/2024 03:27 PM EST
--- OUTSIDE RECORDS SUMMARY | 2025-06-15 05:30 | XMS_ITS ---
Author Organization [facility] Address [address] [place] [address] Care Team Providers Care Roll Filler Name Role Phone Yoli Townsend Primary Care Provider Kostas Hinson Unavailable [phone] Allergies No Known Allergies REASON FOR VISIT Patient presents today for liver fibrosis Medications Medication SIG (Take, Route, Frequency, Duration) Notes Start Date End Date Status Ozempic (1 MG/DOSE) 4 MG/3ML Solution Pen-injector Subcutaneous; Duration: 28 Active Ursodiol 300 MG Capsule tome 2 capsulas por via oral dos veces al ivelisse Orally Twice a day; Duration: 30 days Active PriLOSEC 20 MG Capsule Delayed Release 1 capsule Orally Once a day; Duration: 30 days Active Ursodiol 300 MG Capsule TOME 2 CAPSULAS POR VIA ORAL DOS VECES AL IVELISSE Orally Twice a day; Duration: 30 days Active metFORMIN HCl 500mg Tablet Orally Twice a day Not-Takin g/PRN Repatha Pushtronex System 420 MG/3.5ML Solution Cartridge INJECT 420MG POR V A SUBCUT MATT ONE A MONTH Subcutaneous; Duration: 30 Active Jardiance 10 MG Tablet Oral; Duration: 90 Active Vitamin D-[address] 25 MCG (1000 UT) Tablet Oral; Duration: 90 Active Ezetimibe 10 MG Tablet Oral; Duration: 90 Active Vitamin B-6 100 MG Tablet Oral; Duration: 90 Active Vitamin D2 10 MCG (400 UNIT) Tablet 2 tablets Orally Once a day; Duration: 30 day(s) Active traMADol HCl 50 MG Tablet TAKE 1 TABLET BY MOUTH 2 TIMES A DAY NEEDED FOR PAIN FOR 30 DAYS Oral; Duration: 30 Active Omeprazole 20 MG Capsule Delayed Release 1 Orally QAM; Duration: 30 day(s) 01/23/2022 Active Rosuvastatin Calcium 40 MG Tablet TOME MARK ANTHONY TABLETA POR V A ORAL A DIARIO Oral; Duration: 90 Active Baclofen 10 MG Tablet Oral; Duration: 30 Active Allopurinol 100 MG Tablet 1 tablet Orally Once a day Active Pioglitazone HCl Not -Taking/PRN Losartan Potassium A ctive Fish Oil 1000 MG Tablet Chewable 1 capsule Orally Once a day Active Vitamin C 500 MG Capsule as directed Orally Active Vitamin B12 Active Immunizations Vaccine Route Administration Date Status Comme nts Influenza Unknown 06/15/2025 Refused Social History Social History Drug/Alcohol: Social Info Question Answer Notes AUDIT-C (Standard) Did you have a drink containing alcohol in the past year? No Points 0 Interpretation Negative Section Notes: Nonsmoker; no alcohol Problems Problem Type SNOMED Code ICD Code Onset Dates Problem Status W/U Status Risk Notes Problem Colon cancer screening (086957757) Colon cancer screening (Z12.11) Active confirmed Vital Signs Blood pressure systolic 001 mm Hg 06/15/20 25 Blood pressure diastolic 01 mm Hg 025 Height 61 in 06/15/2025 Weight 190.6 lbs 06/15/2025 BMI 36.01 kg/m2 06/15/2025 Encounters Encounter Location Date Provider Diagnosis [facility] [address] [place] [id number] 06/15/2025 Kostas Erazo Fatty liver K76.0 ; Liver fibrosis K74.00 ; GERD without esophagitis K21.9 and Colon cancer screening Z12.11 Assessments Encounter Date Diagnosis (ICD Code) Assessment Notes Treatment Notes Treatment Clinical Notes Section Notes 06/15/2025 Fatty liver (ICD-10 - K76.0) Overall, Heather appears quite well. She does not describe any symptoms nor show any signs of progressive liver disease. Her recent laboratories do not show any sign of liver dysfunction. We did review that good control of diabetes, continued weight loss, and good control of her hyperlipidemia will all be good for her overall health and specifically for her fatty liver as well. I did advise her to continue her current regimen of the ursodiol and we will give her a new prescription for that with multiple refills. I shall order the below laboratories for follow-up of her underlying liver disease and fibrosis, but given the recent CT scan I do not think she needs any further imaging at this time. I did advise her to continue her current PPI for her reflux as that seems to be working well for her. I do not think she needs any type of endoscopic intervention at this time. We did review that she will be due for a follow-up colonoscopy in 2026 for screening. I will plan to see her in the office in 1 year for a follow-up visit and we will then plan to schedule the colonoscopy for her at that time. I did advise her to contact me prior to that if she has any problems or questions I can be of assistance with. Heather was comfortable with this plan. Thank you again for allowing me to participate in Carie's care. I shall continue to keep you advised of her progress. 06/15/2025 Liver fibrosis (ICD-10 - K74.00) Overall, Heather appears quite well. She does not describe any symptoms nor show any signs of progressive liver disease. Her recent laboratories do not show any sign of liver dysfunction. We did review that good control of diabetes, continued weight loss, and good control of her hyperlipidemia will all be good for her overall health and specifically for her fatty liver as well. I did advise her to continue her current regimen of the ursodiol and we will give her a new prescription for that with multiple refills. I shall order the below laboratories for follow-up of her underlying liver disease and fibrosis, but given the recent CT scan I do not think she needs any further imaging at this time. I did advise her to continue her current PPI for her reflux as that seems to be working well for her. I do not think she needs any type of endoscopic intervention at this time. We did review that she will be due for a follow-up colonoscopy in 2026 for screening. I will plan to see her in the office in 1 year for a follow-up visit and we will then plan to schedule the colonoscopy for her at that time. I did advise her to contact me prior to that if she has any problems or questions I can be of assistance with. Heather was comfortable with this plan. Thank you again for allowing me to participate in Carie's care. I shall continue to keep you advised of her progress. 06/15/2025 GERD without esophagitis (ICD-10 - K21.9) Overall, Heather appears quite well. She does not describe any symptoms nor show any signs of progressive liver disease. Her recent laboratories do not show any sign of liver dysfunction. We did review that good control of diabetes, continued weight loss, and good control of her hyperlipidemia will all be good for her overall health and specifically for her fatty liver as well. I did advise her to continue her current regimen of the ursodiol and we will give her a new prescription for that with multiple refills. I shall order the below laboratories for follow-up of her underlying liver disease and fibrosis, but given the recent CT scan I do not think she needs any further imaging at this time. I did advise her to continue her current PPI for her reflux as that seems to be working well for her. I do not think she needs any type of endoscopic intervention at this time. We did review that she will be due for a follow-up colonoscopy in 2026 for screening. I will plan to see her in the office in 1 year for a follow-up visit and we will then plan to schedule the colonoscopy for her at that time. I did advise her to contact me prior to that if she has any problems or questions I can be of assistance with. Heather was comfortable with this plan. Thank you again for allowing me to participate in Carie's care. I shall continue to keep you advised of her progress. 06/15/2025 Colon cancer screening (ICD-10 - Z12.11) Repeat colonoscopy in 2026 Overall, Heather appears quite well. She does not describe any symptoms nor show any signs of progressive liver disease. Her recent laboratories do not show any sign of liver dysfunction. We did review that good control of diabetes, continued weight loss, and good control of her hyperlipidemia will all be good for her overall health and specifically for her fatty liver as well. I did advise her to continue her current regimen of the ursodiol and we will give her a new prescription for that with multiple refills. I shall order the below laboratories for follow-up of her underlying liver disease and fibrosis, but given the recent CT scan I do not think she needs any further imaging at this time. I did advise her to continue her current PPI for her reflux as that seems to be working well for her. I do not think she needs any type of endoscopic intervention at this time. We did review that she will be due for a follow-up colonoscopy in 2026 for screening. I will plan to see her in the office in 1 year for a follow-up visit and we will then plan to schedule the colonoscopy for her at that time. I did advise her to contact me prior to that if she has any problems or questions I can be of assistance with. Heather was comfortable with this plan. Thank you again for allowing me to participate in Carie's care. I shall continue to keep you advised of her progress. Plan Of Treatment Medication Medication Name Sig Start Date Stop Date Notes Ursodiol 300 MG Capsule TOME 2 CAPSULAS POR VIA ORAL DOS VECES AL IVELISSE Orally Twice a day; Duration: 30 days Treatment Notes Assessment Notes Colon cancer screening Repeat colonoscop y in 2026 Pending Test Test Name Order Date LIVER PROFILE 06/15/2025 CBC w DIFF 06/15/2025 ALPHA-FETOPROTEIN,TUMOR MARKER Prothrombin Time INR 06/15/2025 Liver Fibrosis Pnl 06/15/2025 Next Appt Details Follow Up: 1 Year, Reason: Provider Name:Kostas Erazo , 06/16/2026 09:20:00 AM, [address] [place] [address], [address], [place], [address], History and Physical Notes * HPI (History of Present Illness) Category Sub-Category Detail Notes Category Not es incontinence I saw Heather in follow-up today in regard to her underlying history of fatty liver with associated liver fibrosis. Since I last saw Heather in May 2024 she reports that she has been feeling well. She has been on Ozempic for at least several months and has lost about 10 pounds. She reports that she recently ran out of her ursodiol but prior to that had been using it compliantly at 600 mg twice a day. She presently enjoys a good appetite and remains on her PPI with good relief of previous reflux symptoms. She denies any dysphagia, early satiety, nausea, or vomiting. She has not noticed any signs of jaundice, increasing abdominal girth, edema, pruritus, or fatigue. She denies abdominal pain. Her bowel movements have been regular and without any signs of bleeding. After last year's office visit she did have an abdominal ultrasound that was unremarkable. There was no sign of any liver mass nor biliary disease. The liver elastography was slightly elevated indicating some component of chronic liver disease. Her most recent labs in May have shown a completely normal liver profile, a hemoglobin A1c of 7.5, a cholesterol of 132, triglycerides 68, LDL 62, and HDL 57, Laboratories in December showed a normal CBC with a platelet count of 196,000. She did have a CT scan of her abdomen just this past April describing an unremarkable liver. There was no splenomegaly or ascites. Progress Notes * HEATHER COMBS EDOB: (65 yo F)Acc No.[id number]:06/15/2025 Progress Notes Patient: HEATHER TOMLIN Provider: Etelvina Erazo MD :1960 A ge:65 Y S ex:Female Date:06/15/2025 Address:[address] [place] [address] , [id number] Pcp:Yoli Padilla Subjective: * Chief Complaints: * P atient presents today for liver fibrosis * HPI: i ncontinence: I saw Heather in follow-up today in regard to her underlying history of fatty liver with associated liver fibrosis. Since I last saw Heather in May 2024 she reports that she has been feeling well. She has been on Ozempic for at least several months and has lost about 10 pounds. She reports that she recently ran out of her ursodiol but prior to that had been using it compliantly at 600 mg twice a day. She presently enjoys a good appetite and remains on her PPI with good relief of previous reflux symptoms. She denies any dysphagia, early satiety, nausea, or vomiting. She has not noticed any signs of jaundice, increasing abdominal girth, edema, pruritus, or fatigue. She denies abdominal pain. Her bowel movements have been regular and without any signs of bleeding. After last year's office visit she did have an abdominal ultrasound that was unremarkable. There was no sign of any liver mass nor biliary disease. The liver elastography was slightly elevated indicating some component of chronic liver disease. Her most recent labs in May have shown a completely normal liver profile, a hemoglobin A1c of 7.5, a cholesterol of 132, triglycerides 68, LDL 62, and HDL 57, Laboratories in December showed a normal CBC with a platelet count of 196,000. She did have a CT scan of her abdomen just this past April describing an unremarkable liver. There was no splenomegaly or ascites. * Medical History: Diabetes HTN Denies IN,CVA,Lung disease,renal disease Kidney stones, s/p lithotripsy Hyperlipidemia GERD Steatohepatitis, with a liver biopsy in May of 2012 reviewing mild hepatitis and some fibrosis Colonoscopy in December of 2011 which was negative for polyps Upper endoscopy in December of 2011 which revealed a small hiatal hernia, but no evidence of any significant esophagitis Negative screening colonoscopy in 03/2022. However, the prep was somewhat limited and she was put in a colonoscopy recall for 2026 rather than 2031. Medical History Verified * Surgical History: CCY PINA BTL Surgical History verified. * Hospitalization/Major Diagno stic Procedure: No Hospitalization Documented. Hospitalization Verified. * Family History: F ather: . M other: , diagnosed with HTN (hypertension). S iblings: alive, cervical cancer sister. F amily History Verified.. No hx of colorectal cancer nor liver disease. * Social History: T obacco Use: T obacco Use/Smoking A re you a: nonsmoker. D rugs/Alcohol: A lcohol Screen P oints: 0, Interpretation: Negative. D rug/Alcohol: A WILMA-C (Standard) D id you have a drink containing alcohol in the past year? N o,?Points 0 , I nterpretation N egative. Social History Verified. N onsmoker; no alcohol. * Medications: T akingVitamin B12 Vitamin C 500 MG Capsule as directed Orally Fish Oil 1000 MG Tablet Chewable 1 capsule Orally Once a day Losartan Potassium Allopurinol 100 MG Tablet 1 tablet Orally Once a day Vitamin D2 10 MCG (400 UNIT) Tablet 2 tablets Orally Once a day Omeprazole 20 MG Capsule Delayed Release 1 Orally QAM traMADol HCl 50 MG Tablet TAKE 1 [...] St 25 MCG (1000 UT) Tablet Oral Ursodiol 300 MG Capsule TOME 2 CAPSULAS POR VIA ORAL DOS VECES AL IVELISSE Repatha Pushtronex System 420 MG/3.5ML Solution Cartridge INJECT 420MG POR V A SUBCUT MATT ONE A MONTH Subcutaneous Ozempic (1 MG/DOSE) 4 MG/3ML Solution Pen-injector Subcutaneous PriLOSEC 20 MG Capsule Delayed Release 1 capsule Orally Once a day Ursodiol 300 MG Capsule tome 2 capsulas por via oral dos veces al ivelisse Orally Twice a day Taking Vitamin B12 Taking Vitamin C 500 MG Capsule as directed Orally Taking Fish Oil 1000 MG Tablet Chewable 1 capsule Orally Once a day Taking Losartan Potassium Taking Allopurinol 100 MG Tablet 1 tablet Orally Once a day Taking Vitamin D2 10 MCG (400 UNIT) Tablet 2 tablets Orally Once a day Taking Omeprazole 20 MG Capsule Delayed Release 1 Orally QAM Taking traMADol HCl 50 MG Tablet TAKE 1 [...] 25 MCG (1000 UT) Tablet Oral Taking Ursodiol 300 MG Capsule TOME 2 CAPSULAS POR VIA ORAL DOS VECES AL IVELISSE Taking Repatha Pushtronex System 420 MG/3.5ML Solution Cartridge INJECT 420MG POR V A SUBCUT MATT ONE A MONTH Subcutaneous Taking Ozempic (1 MG/DOSE) 4 MG/3ML Solution Pen-injector Subcutaneous Taking PriLOSEC 20 MG Capsule Delayed Release 1 capsule Orally Once a day Taking Ursodiol 300 MG Capsule tome 2 capsulas por via oral dos veces al ivelisse Orally Twice a day Not-Taking/PRNPioglitazone HCl metFORMIN HCl 500mg Tablet Orally Twice a day Medication List reviewed and reconciled with the patientNot-Taking/PRN Pioglitazone HCl Not-Taking/PRN metFORMIN HCl 500mg Tablet Orally Twice a day Medication List reviewed and reconciled with the patient * Allergies: N .K.D.A.yesAllergies Verified. Objective: * Vitals: W t: 190.6 lbs, Ht: 61 in, BMI: 36.01 Index, BP: 001/01 mm Hg, Wt-k.46 kg. Assessment: * Assessment: 1. F atty liver - K76.0 (Primary) 2 . L iver fibrosis - K74.00 ?3. G ERD without esophagitis - K21.9 4 . C olon cancer screening - Z12.11 Overall, Heather appears quite well. She does not describe any symptoms nor show any signs of progressive liver disease. Her recent laboratories do not show any sign of liver dysfunction. We did review that good control of diabetes, continued weight loss, and good control of her hyperlipidemia will all be good for her overall health and specifically for her fatty liver as well. I did advise her to continue her current regimen of the ursodiol and we will give her a new prescription for that with multiple refills. I shall order the below laboratories for follow-up of her underlying liver disease and fibrosis, but given the recent CT scan I do not think she needs any further imaging at this time. I did advise her to continue her current PPI for her reflux as that seems to be working well for her. I do not think she needs any type of endoscopic intervention at this time. We did review that she will be due for a follow-up colonoscopy in 2026 for screening. I will plan to see her in the office in 1 year for a follow-up visit and we will then plan to schedule the colonoscopy for her at that time. I did advise her to contact me prior to that if she has any problems or questions I can be of assistance with. Heather was comfortable with this plan. Thank you again for allowing me to participate in Carie's care. I shall continue to keep you advised of her progress. Plan: * Treatment: 2. L iver fibrosis L AB: LIVER PROFILE L AB: CBC w DIFF L AB: ALPHA-FETOPROTEIN,TUMOR MARKER L AB: Prothrombin Time INR L AB: Liver Fibrosis Pnl 3. C olon cancer screening Notes: Repeat colonoscopy in 2026 4. O thers Refill Ursodiol Capsule, 300 MG, TOME 2 CAPSULAS POR VIA ORAL DOS VECES AL IVELISSE, Orally, Twice a day, 30 days, 120, Refills 11. * Immunizations: Influenza (Not administered - Refused: Patient decision) * Preventive Medicine: Counseling: C are goal follow-up plan: A josé Normal BMI Follow-up D ietary management education, guidance, and counseling, B IN management provided Y es. Urinary Incontinence: U rinary Incontinence A ssessment: A bsent, P cristofer of care documented: N o, reason not specified. Screenings: F all Risk Screening F all Risk Assessment: N o falls in the past year, S creening: N o falls in the past year, A ssessment: N ot performed, no reason specified, P cristofer of Care: N ot documented, no reason specified. * Follow Up: 1 Year Billing Information: * Procedure Codes: * The named appointment provid er may or may not be the originator of this progress note, and it is not deemed complete until electronically signed by the appointment provider. Sign off status: Pending * Provider: Etelvina Erazo MD Date: 08/15/2024 Generated for Joanie castañeda/Bill/Ginette on: 08/29/2024 03:28 PM EST
--- OUTSIDE RECORDS SUMMARY | 2025-06-29 15:28 | XMS_ITS | Patient Health Record ---
Author Organization [facility] Address [address] [place] [address] Care Team Providers Care Table Filler Name Role Phone Yoli Townsend Primary Care Provider UnavailKostas Love Unavailable [phone] Allergies No Known Allergies Reason For Referral [...] Status Risk Notes Problem Colon cancer screening (032489206) Colon cancer screening (Z12.11) Active confirmed Problem Screening for malignant neoplasm of colon (348699045) Encounter for screening for malignant neoplasm of colon (Z12.11) Active confirmed Problem Hepatic fibrosis (29589128) Hepatic fibrosis (K74.0) Active confirmed Problem Elevated liver enzymes level (211706489) Elevated liver enzymes (R74.8) Active confirmed Problem Fatty liver (824552772) Fatty liver (K76.0) Active confirmed Problem Hepatic fibrosis (disorder) (05807473) Liver fibrosis (K74.0) Active confirmed Problem Gastroesophageal reflux disease (184124856) GERD without esophagitis (K21.9) Active confirmed Problem Diverticulosis of colon (484234680) Diverticulosis of colon (K57.30) Active confirmed Problem Hepatic fibrosis (disorder) (55728898) Liver fibrosis (K74.00) Active confirmed Vital Signs Blood pressure diastolic 01 mm Hg 06/15/2025 Height 61 in 06/15/2025 Blood pressure systolic 001 mm Hg 06/15/2025 Weight 190.6 lbs 06/15/2025 BMI 36.01 kg/m2 06/15/2025 Encounters Encounter Location Date Provider Diagnosis [facility] [address] [place] [address] 06/15/2025 Kostas Erazo Fatty liver K76.0 ; [...] Name:Kostas Brand Kacey , 06/16/2026 09:20:00 AM, [address] [place] [address], [address], [place], [address], Insurance Providers Payer Name Payer Address Payer Phone Subscriber Number Group Number Insured Name Patient Relationship to Insured Coverage Start Date Coverage End Date MEDICARE OF [place] [address] [place] [address] [phone] [id number] [employer]ER [employer] Self - patient is the insured 5 MEDICAID OF [facility] [address] [place] [address] [phone] [id number] [employer] Self - patient is the insured 5 Medical (General) History Medical History History ICD Code Diabetes HTN Denies AR,CVA,Lung disease,renal disease Kidney stones, s/p lithotripsy Hyperlipidemia [...]
== END 2025-06-29 09:27 | disposition home or self-care (01) ==
LOC: HO.LNP 09:26
PROVIDERS: PCP Internal Medicine; Visit Provider Surgery
DX: L91.8 Other hypertrophic disorders of the skin (principal); L72.3 Sebaceous cyst; E78.5 Hyperlipidemia, unspecified; I10 Essential (primary) hypertension; E11.65 Type 2 diabetes mellitus with hyperglycemia; M85.80 Other specified disorders of bone density and structure, unspecified site; M79.7 Fibromyalgia; Z79.2 Long term (current) use of antibiotics; Z79.84 Long term (current) use of oral hypoglycemic drugs; Z79.899 Other long term (current) drug therapy
CPT/HCPCS: 11200; 88304; 88305; 96127; 99212

== ENCOUNTER 2025-06-29 13:17 | Outpatient (AMB) | payer MEDICARE, MEDICAID, SELFPAY ==
--- NOTE | 2025-06-29 13:27 | A.OFFPC_ITS ---
Vital Signs 06/29/25 13:28 Height 5 ft 1 in Weight 193 lb BMI 36.5 BP 130/86 Blood Pressure Location Lt brachial Position Sitting Pulse 97 Pulse Source Pulse Oximeter Temp 97.3 F Temp Source Temporal Artery Scan Pulse Oximetry (%) 96 Oxygen Delivery Method Room Air Intake Visit Reasons: follow up Ore Washer Required: No Accompanied by: Self / Same As Patient Allergies atorvastatin Allergy (Intermediate, Verified 06/29/25 13:35) elevated liver enzymes, elevated enzymes duloxetine (Cymbalta) Allergy (Intermediate, Verified 06/29/25 13:35) headache dapagliflozin (From [facility]) Adverse Reaction (Intermediate, Verified 06/29/25 13:35) Dizziness Medication List - Last Reconciled 06/29/25 by Yoli Padilla MD alclometasone 0.05% appl topical BID PRN azelastine-fluticasone 137-50 mcg/spray 1 spray intranasal BID blood sugar diagnostic (FreeStyle Lite Strips) 3 times a day blood-glucose meter (FreeStyle Lite Meter kit) As directed 3x/day calcium carbonate 500 mg PO BID 30 days cholecalciferol (vitamin D3) 25 mcg PO DAILY ciprofloxacin HCl 250 mg PO BID 10 days diclofenac sodium 1% 2 grams topical BID PRN empagliflozin (Jardiance) 25 mg PO DAILY 90 days evolocumab (Repatha Pushtronex) 420 mg (3.5 mL) subcut Q4W 90 days evolocumab (Repatha SureClick) 140 mg subcut Q2W 90 days ezetimibe 10 mg PO DAILY 90 days gabapentin 300 mg PO TID 90 days hydroxyzine HCl 25 mg PO BID PRN 7 days ketoconazole 2% Apply 10 mL to wet scalp, lather, leave on 5 minutes, and rinse. Apply once a day for 8 weeks. losartan 25 mg PO DAILY 90 days mecobalamin (vitamin B12) 1,000 mcg PO DAILY 90 days metformin 1,000 mg (2 x 500 mg) PO BID 90 days methocarbamol 500 - 1,000 mg (1 - 2 x 500 mg) PO BEDTIME omeprazole 20 mg PO QAM PRN 90 days pen needle, diabetic (Novofine 32) As directed pyridoxine (vitamin B6) 100 mg PO DAILY 90 days repaglinide 1- 2 tabs prior to dinner PO daily; administer within 15 minutes of a meal or snack 30 days rosuvastatin 40 mg PO DAILY tamsulosin (Flomax) 0.4 mg PO DAILY Tobacco use date assessed: 06/29/25 Dental Screening Dental Screen Date: 06/29/25 Did you have a dental visit in the last 12 months?: Yes Did you have a dental problem in the last 6 months where you did not have access to dental care?: No Was dental information given to patient?: Patient has dentist HPI HPI Comments History of Present Illness Details The patient is a 65 year old individual presenting for follow-up for management of uncontrolled type 2 diabetes and medication review. The patient reports a recent blood glucose reading of almost 500, which the patient attempted to manage by increasing water intake. The patient is not willing to start insulin at this time. A1c last month was 7.5% LDL within goal. Blood pressure within goal. She does have osteopenia by last DEXA scan and is on calcium with vitamin-D. On gabapentin for fibromyalgia. The patient has known allergies to atorvastatin, Cymbalta, and Farxiga. Current medications include losartan, calcium with vitamin D, Jardiance, Repatha, Ezetimibe, gabapentin, hydroxyzine, metformin, methocarbamol, omeprazole, and repaglinide. [facility] Medical History Seborrheic dermatitis Diverticulitis History of kidney stones Abdominal pain Tachycardia Renal cyst Chronic GERD Polyarthralgia Left shoulder pain Right foot pain Renal calculus, bilateral Mild major depression, single episode Morbid obesity with BMI of 40.0-44.9, adult Diabetes type 2, uncontrolled Iron deficiency anemia Osteopenia Left foot pain Postmenopausal Vitamin D deficiency Elevated LFTs Thyroid nodule Type 2 diabetes mellitus with other diabetic kidney complication Proteinuria Hyperlipidemia LDL goal <100 Obesity due to excess calories Essential hypertension Pure hypercholesterolemia Venous thrombosis of upper extremity Diabetes mellitus, type II Spondylosis, cervical Fatty liver Metatarsalgia Arthropathy of knee Surgical History H/O colonoscopy History of extraction of renal calculus History of removal of cyst History of shoulder surgery History of cholecystectomy History of total abdominal hysterectomy and bilateral salpingo-oophorectomy Status post rotator cuff repair Family History Father Stomach cancer Liver cancer Mother Myocardial infarct Diabetes CVD (cardiovascular disease) Sister Cervical cancer Brother Murder Social History Household Members: Children Housing: House Alcohol intake: never Patient Tobacco Use Status: Never used Tobacco e-Cigarette/Vaping Use: Never Used Second Hand Smoke Exposure: No service: No Current occupational status: disabled Current occupation: right handed Cognitive needs: Yes (Pt use a cane) Hearing needs: No Vision needs: No Questionnaire PHQ-9 Over the last 2 weeks, how often have you been bothered by any of the following problems? 1. Little interest or pleasure in doing things: not at all 2. Feeling down, depressed, or hopeless: not at all 3. Trouble falling or staying asleep, or sleeping too much: not at all 4. Feeling tired or having little energy: not at all 5. Poor appetite or overeating: not at all 6. Feeling bad about yourself - or that you are a failure or have let yourself or your family down: not at all 7. Trouble concentrating on things, such as reading the newspaper or watching television: not at all 8. Moving or speaking so slowly that other people could have noticed. Or the opposite - being so fidgety or restless that you have been moving around a lot more than usual: not at all 9. Thoughts that you would be better off or of hurting yourself in some way: not at all Total score: 0 Depression Screening Interpretation: Negative Depression Screening Done: Yes 70236 - PHQ-9 Billing: Yes Source: Developed by Drs. Kostas Simeon, Mary Smith, Lb Barrett and colleagues, with an educational archael from [employer]. Thrive Questionnaire Date Thrive assessed: 11/06/24 I am a: Patient What is your living situation today?: I have a place to live, but I am worried about losing it in the future Within the past 12 months, did the food you bought not last and you didn't have the money to get more?: Often true Within the past 12 months, did you worry whether your food would run out before you got money to buy more?: Often true Do you have trouble paying for medicines?: No Do you have trouble getting transportation to medical appointments?: Yes Do you have trouble paying your heating and electricity bill?: I choose not to answer this question Do you have trouble taking care of your child, family member or friend?: No Do you have trouble with day-to-day activities such as bathing, preparing meals, shopping, managing finances, etc.?: Yes Are you currently unemployed and looking for a job?: No Are you interested in more education?: I choose not to answer this question Please select the resources that you would like help with: Transportation Currently or been in a relationship where the following occur: I choose not to answer THRIVE Score: 4 AUDIT C Alcohol Use Questionnaire (AUDIT-C) 1. How often do you have a drink containing alcohol?: Never 3. How often do you have six or more drinks on one occasion?: Never Total Score: 0 Score Reviewed/Action Taken: No HENRIETTA-7 AMB Questionnaire HENRIETTA-7 Date HENRIETTA - 7 assessed: 11/13/24 Feeling nervous, anxious, or on edge: 0 = Not at all Not being able to stop or control worryin = Not at all Worrying too much about different things: 0 = Not at all Trouble relaxin = Not at all Being so restless that it is hard to sit still: 0 = Not at all Becoming easily annoyed or irritable: 0 = Not at all Feeling afraid as if something awful might happen: 0 = Not at all Total HENRIETTA-7 score (0-4 normal; 5-9 mild; 10-14 moderate; 15-21 severe): 0 Source: Developed by Drs. Kostas Simeon, Mary Smith, Lb Barrett and colleagues, with an educational rachael from [employer]. HENRIETTA-7 Assessment Billing HENRIETTA-7 Assessment Tool: HENRIETTA-7 Assessment 52588 Review of Systems Const All systems reviewed & are unremarkable except as noted in HPI and below Card Denies chest pain at rest, Denies chest pain with activity, Denies edema, Denies irregular heart rhythm, Denies claudication, Denies dyspnea, Denies dyspnea on exertion, Denies orthopnea, Denies paroxysmal nocturnal dyspnea and Denies slow heart rate Resp Denies cough, Denies dyspnea and Denies dyspnea on exertion GI Denies abdominal pain, Denies change in bowel habits, Denies excessive flatus, Denies nausea and Denies vomiting Physical exam (Primary Care) Vital Signs: Last Vital Signs Temp 97.3 F 06/29/25 13:28 Pulse 97 06/29/25 13:28 BP 130/86 06/29/25 13:28 Pulse Ox 96 06/29/25 13:28 Oxygen Delivery Method Room Air 06/29/25 13:28 BMI result Body Mass Index 36.5 BMI Assessment/Plan discussion: High BMI High, discussed plan: lifestyle, weight reduction, dietary and physical activity Tobacco/Smoking Status: Tobacco use Status Tobacco use date assessed 06/29/25 06/29/25 13:31 Patient Tobacco Use Status Never used Tobacco 06/29/25 13:31 e-Cigarette/Vaping Use Never Used 06/29/25 13:31 PHQ-9: PHQ-9 Score PHQ-9: Total score 0 06/29/25 13:31 Depression Screening Interpretation: Negative Thrive Assessment: Date of Thrive Assessment Date Thrive assessed 11/06/24 06/29/25 13:31 Currently or been in a relationship where the following occur: I choose not to answer Resp Effort & Inspection: normal respiratory effort Auscultation: clear to auscultation bilaterally Cardio Jugular venous distension: no JVD Rate: regular rate Rhythm: regular rhythm Heart sounds: S1 normal heart sound present and S2 normal heart sound present Extrem General: Yes full ROM Coding Level of Care Code Complex visit Add On G2211 Diagnoses Hyperlipidemia LDL goal <70 E78.5 Essential hypertension I10 Type 2 diabetes mellitus with hyperglycemia, without long-term current use of insulin E11.65 Diabetes mellitus [facility] insulin use: without [facility] use Diabetes mellitus complication status: with hyperglycemia Osteopenia, unspecified location M85.80 Osteopenia location: unspecified Fibromyalgia M79.7 Additional Codes PHQ-9 - 67788 - PHQ-9 Billing: Yes ([id number]) HENRIETTA-7 Assessment Billing - HENRIETTA-7 Assessment Tool: HENRIETTA-7 Assessment 94577 ([id number]) Time Spent (min) 22 Assessment & Plan Assessment & Plan (1) Hyperlipidemia LDL goal <70: Code(s): E78.5 - Hyperlipidemia, unspecified Category: Medical (2) Essential hypertension: Code(s): I10 - Essential (primary) hypertension Category: Medical (3) Diabetes mellitus, type II: Code(s): E11.9 - Type 2 diabetes mellitus without complications Category: Medical Qualifiers: Diabetes mellitus [facility] insulin use: without [facility] use Diabetes mellitus complication status: with hyperglycemia Qualified Code(s): E11.65 - Type 2 diabetes mellitus with hyperglycemia (4) Osteopenia: Comment: Next bone densitometry will be August 2022 Code(s): M85.80 - Other specified disorders of bone density and structure, unspecified site Category: Medical Qualifiers: Osteopenia location: unspecified Qualified Code(s): M85.80 - Other specified disorders of bone density and structure, unspecified site (5) Fibromyalgia: Code(s): M79.7 - Fibromyalgia Category: Medical Plan Plan 1. Type 2 Diabetes Mellitus With Hyperglycemia The patient presents with severe hyperglycemia, reporting a blood sugar level of nearly 500. Despite the recommendation for insulin, the patient has declined to start it at this time. Given prior insurance denials for other medications, a 30-day trial of Trulicity will be initiated. 2. Hyperlipidemia LDL goal is less than 70. A new prescription for Repatha was sent to the pharmacy today. 3. Hypertension Continue losartan. Blood pressure goal is equal or less than 130/80. 4. Osteopenia Continue calcium with vitamin-D. DEXA to be repeated in 2026. Orders: Orders Comprehensive [place]. Panel Fast 4 Months E78.5 - Hyperlipidemia, unspecified Lipid Panel 4 Months E78.5 - Hyperlipidemia, unspecified Microalbumin, Random (w Creat) 4 Months R80.9 - Proteinuria, unspecified Vitamin D 25-OH Total 4 Months E55.9 - Vitamin D deficiency, unspecified Vitamin B12 and Folate 4 Months E53.8 - Deficiency of other specified B group vitamins Medications: New dulaglutide (Trulicity) 0.75 mg (0.5 mL) subcut QWEEK 2.5 mL 1RF 30 days
[2025-06-29 13:28] VITALS: BP 130/86; PULSE 97; TEMP 36.3; O2SAT 96; BMI 36.5
== END 2025-06-29 13:50 | disposition home or self-care (01) ==
LOC: HO.HMCH 13:18
PROVIDERS: PCP Internal Medicine; Visit Provider Internal Medicine
DX: E78.5 Hyperlipidemia, unspecified (principal); I10 Essential (primary) hypertension; E11.65 Type 2 diabetes mellitus with hyperglycemia; M85.80 Other specified disorders of bone density and structure, unspecified site; M79.7 Fibromyalgia